=== PATIENT | male | born 1945 | race Caucasian/White ===

== ENCOUNTER → 2017-11-15 | Day surgery (SDC) | payer OTHER ==
[2017-11-08 15:18] VITALS: BMI 24.0
[~2017-11-15] VITALS: Ht 175.3 cm; Wt 76.4 kg
[~2017-11-15] MED LIST: ASPI325T39 PO; DOCU250C11 PO; EZET10TA63 PO; FENO134C PO; GABA-113 PO; GLC/500 PO; LEVE750T PO; LIDOCAINE HCL 2% 2 ML VIAL (20MG/ML) ONE; LISI-461 PO; PROPOFOL IV EMULSION 10 MG/ML 20 ML VIAL ONE; SODIUM CHLORIDE 0.9% 500ML 500 ML IV ONE
[2017-11-15 09:17] VITALS: Ht 175.3 cm; Wt 76.4 kg
--- NOTE | 2017-11-15 09:18 | Endo History and Physical ---
History & Physical Date of Service: Nov 15, 2017. Chief Complaint: Referring Physician: History of Present Illness Colonoscopy for positive cologaurd Past Medical History Diabetes, Seizure Disorder, Hypertension, CVA/TIA Past Surgical History Hx Cardiac Surgery: No Hx Internal Defibrillator: No Hx Pacemaker: No Hx Abdominal Surgery: Yes (APPY; UMBILICAL HERNIA) Hx of Implantable Prosthesis: No Hx Post-Op Nausea and Vomiting: No Hx Cancer Surgery: No Hx Thoracic Surgery: No Hx Orthopedic: No Hx Urinary Tract Surgery: No Family History Colon CA Social History Smoking Status: Former Smoker Hx Substance Use: No Hx Alcohol Use: No Allergies Coded Allergies: Lactose Intolerance (GI) (Verified Allergy, Unknown, GI SYMPTOMS, 11/08/17) Pt reported lactose intolerance (not milk allergy) to dietitian. NO KNOWN DRUG ALLERGIES (Verified Allergy, Unknown, ., 11/08/17) Milk (Verified Adverse Reaction, Unknown, FLATULENCE,ABD DISCOMFORT, ) Current Medications Reported Home Medications Medications Dose Route/Sig Max Daily Dose Days Date Category Tricor (Fenofibrate Micronized) 134 Mg Cap 134 Mg PO QAM 11/08/17 Reported Zetia (Ezetimibe) 10 Mg Tab 10 Mg PO QPM 09/24/15 Reported Keppra (Levetiracetam) 750 Mg Tab 1,500 Mg PO BID 09/24/15 Reported Docusate Sodium 250 Mg Cap 250 Mg PO BID 09/04/14 Reported Glucophage (Metformin Hcl) 500 Mg Tab 500 Mg PO BID 09/04/14 Reported Neurontin (Gabapentin) 300 Mg Cap 300 Mg PO BID 09/04/14 Reported Zestril (Lisinopril) 10 Mg Tab 10 Mg PO QPM 02/24/14 Reported Aspirin Ec (Aspirin) 325 Mg Tab 325 Mg PO QAM 02/24/14 Reported Vital Signs Weight (Kilograms): 76.36 Height (Feet): 5 Height (Inches): 9 Physical Exam General Appearance: no apparent distress Respiratory/Chest: Auscultation: breath sounds normal Cardiovascular: Heart Auscultation: RRR Abdomen: Inspection & Palpation: soft, non-distended Assessment and Plan Stable for colonoscopy
--- NOTE | 2017-11-15 10:13 | GI REPORT ---
Patient Name: Silver Terry Procedure Date: 11/15/2017 9:18 AM Date of : 1945 Admit Type: Outpatient Age: 72 Gender: Male Attending MD: Haseeb Spain MD Procedure: Colonoscopy Providers: Haseeb Spain MD Referring MD: Raul Benitez Indications: Positive Cologuard test Medicines: Monitored Anesthesia Care Complications: No immediate complications. Estimated Blood Loss: Estimated blood loss: none. Procedure: Pre-Anesthesia Assessment: - Prior to the procedure, a History and Physical was performed, and patient medications and allergies were reviewed. The patient is competent. The risks and benefits of the procedure and the sedation options and risks were discussed with the patient. All questions were answered and informed consent was obtained. Patient identification and proposed procedure were verified by the physician and the nurse in the procedure room. Mental Status Examination: alert and oriented. Airway Examination: normal oropharyngeal airway and neck mobility. Respiratory Examination: clear to auscultation. CV Examination: normal. ASA Grade Assessment: III - A patient with severe systemic disease. After reviewing the risks and benefits, the patient was deemed in satisfactory condition to undergo the procedure. The anesthesia plan was to use monitored anesthesia care (MAC). Immediately prior to administration of medications, the patient was re-assessed for adequacy to receive sedatives. The heart rate, respiratory rate, oxygen saturations, blood pressure, adequacy of pulmonary ventilation, and response to care were monitored throughout the procedure. The physical status of the patient was re-assessed after the procedure. After I obtained informed consent, the scope was passed under direct vision. Throughout the procedure, the patient's blood pressure, pulse, and oxygen saturations were monitored continuously.The colonoscopy was performed without difficulty. The patient tolerated the procedure well. The scope was introduced through the anus and advanced to the terminal ileum. The quality of the bowel preparation was good. The terminal ileum, ileocecal valve, appendiceal orifice, and rectum were photographed. Findings: The perianal and digital rectal examinations were normal. The terminal ileum appeared normal. A 8 mm polyp was found in the ascending colon. The polyp was sessile. The polyp was removed with a cold snare. Resection and retrieval were complete. Verification of patient identification for the specimen was done by the physician and nurse using the patient's name and date. A 4 mm polyp was found in the rectum. The polyp was sessile. The polyp was removed with a cold snare. Resection and retrieval were complete. Multiple small and large-mouthed diverticula were found in the sigmoid colon. Non-bleeding internal hemorrhoids were found during retroflexion. The hemorrhoids were small. Impression: - The examined portion of the ileum was normal. - One 8 mm polyp in the ascending colon, removed with a cold snare. Resected and retrieved. - One 4 mm polyp in the rectum, removed with a cold snare. Resected and retrieved. - Diverticulosis in the sigmoid colon. - Non-bleeding internal hemorrhoids. Recommendation: - Discharge patient to home. - Await pathology results. - Repeat colonoscopy in 5 years for surveillance. - Return to referring physician. Haseeb Spain MD 11/15/2017 10:12:50 AM This report has been signed electronically. Note Initiated On: 11/15/2017 9:18 AM Number of Addenda: 0 I attest to the content of the Intraoperative Record and orders documented therein, exceptions below {[id number]}
--- NOTE | 2017-11-15 10:22 | Discharge Instructions ---
Endoscopy Patient Instructions Date / Procedure(s) Performed Nov 15, 2017. Colonoscopy Allergy Information Coded Allergies: Lactose Intolerance (GI) (Verified Allergy, Unknown, GI SYMPTOMS, 11/08/17) Pt reported lactose intolerance (not milk allergy) to dietitian. NO KNOWN DRUG ALLERGIES (Verified Allergy, Unknown, ., 11/08/17) Milk (Verified Adverse Reaction, Unknown, FLATULENCE,ABD DISCOMFORT, ) Discharge Date / Findings Nov 15, 2017. Small colon polyps, resected. Provider Instructions Activity Restrictions - No exercising or heavy lifting for 24 hours. - Do not drink alcohol the day of the procedure. - Do not drive a car or operate machinery until the day after the procedure. - Do not make any important decisions or sign important papers in 24 hours after the procedure. Following Day: - Return to full activity which may include returning to work/school. Diet Start your diet with liquids and light foods (jello, soup, juice, toast). Then eat your usual diet if not nauseated. Treatment For Common After Affects For mild abdominal pain, bloating, or excessive gas: - Rest - Eat lightly - Lie on right side Follow-Up Information Follow-up with DR. OSBORNE as scheduled Anesthesia Information What You Should Know You have had a procedure that required some medicine to reduce anxiety and discomfort. This treatment is called moderate sedation. After receiving the treatment, you may be sleepy, but you will be able to breathe on your own. The effects of the treatment may last for several hours. Follow these instructions along with Activity/Diet recommendations noted above: * Do NOT do anything where dizziness or clumsiness would be dangerous. * Rest quietly at home today, then you can be up and about tomorrow. * Have a responsible person stay with you the rest of today. * You may have had an I.V. today. If so, you may take the dressing off later today. Recommendations Call your doctor if: * Trouble breathing * Continuous vomiting for more than 24 hours * Temperature above 101 degrees * Severe abdominal pain or bloating * Pain not relieved by pain medicine ordered * There is increased drainage or redness from any incision * A large amount of rectal bleeding greater than 2-3 tablespoons. (If you had a polyp/s removed or have hemorrhoids, a small amount of blood - from the rectum is to be expected.) * You have any unanswered questions or concerns. IN THE EVENT OF A SERIOUS EMERGENCY, GO TO THE NEAREST EMERGENCY ROOM Your discharge instructions were prepared by provider Haseeb Spain. Patient Instructions Signature Page Silver Terry Patient (or Guardian) Signature/Date: I have read and understand the instructions given to me by my caregivers. Caregiver/RN/Doctor Signature/Date: The above-named patient and/or guardian has received patient instructions on this date. + Original Patient Signature Page (only) stays with chart. Please make copy for patient.
--- NOTE | 2017-11-15 10:37 | Anesthesiology Progress Note ---
Anesthesia Post Op Note Date & Time Nov 15, 2017 at 10:37 Vital Signs Pain Intensity: 0 Vital Signs Past 12 Hours Date Time Temp Pulse Resp B/P (MAP) Pulse Ox O2 Delivery O2 Flow Rate FiO2 11/15/17 10:30 78 16 147/67 (93) 94 Room Air 11/15/17 10:25 81 16 130/61 (84) 95 Room Air 11/15/17 10:15 67 16 97/44 (61) 97 Room Air 11/15/17 09:29 37.2 67 18 149/91 (110) 97 Room Air Notes Mental Status: alert / awake / arousable, participated in evaluation Pt Amnestic to Procedure: Yes Nausea / Vomiting: adequately controlled Pain: adequately controlled Airway Patency, RR, SpO2: stable & adequate BP & HR: stable & adequate Hydration State: stable & adequate Anesthetic Complications: no major complications apparent
[2017-11-15 10:45] VITALS: BP 136/74; PULSE 78; O2SAT 96
== END | disposition home or self-care (01) ==
LOC: C.GI 08:57
PROVIDERS: ATTEND Student in an Organized Health Care Education/Training Program
DX: R19.5 Other fecal abnormalities (principal); D12.2 Benign neoplasm of ascending colon; D12.8 Benign neoplasm of rectum; K64.8 Other hemorrhoids; G47.33 Obstructive sleep apnea (adult) (pediatric); E11.9 Type 2 diabetes mellitus without complications; I10 Essential (primary) hypertension; Z86.73 Personal history of transient ischemic attack (TIA), and cerebral infarction without residual deficits; G40.909 Epilepsy, unspecified, not intractable, without status epilepticus; Z90.49 Acquired absence of other specified parts of digestive tract; Z91.011 Allergy to milk products; Z87.891 Personal history of nicotine dependence; Z79.82 Long term (current) use of aspirin

== ENCOUNTER 2018-08-19 10:07 | Inpatient (IN) ==
[2018-08-19 11:30] LABS: Hematocrit (blood only) 44.6 % (42-52); Hemoglobin 16.2 g/dL (14.0-18.0); Mean Corpuscular Hgb Conc 36.3 g/dL (32-36); Mean Corpuscular Volume 90.5 fL (80-100); Mean Platelet Volume 10.5 fL (7.4-10.4); Platelet Count 326 K/uL (130-400); RDW Coefficient of Variation 13.4 % (11.5-14.5); RDW Standard Deviation 44.2 fL (36.4-46.3); Red Blood Count 4.93 M/uL (4.7-6.1); White Blood Count 25.35 K/uL (4.8-10.8)
[2018-08-19 11:31] LABS: Appearance Urine Cloudy (Clear); Bacteria Urine Automated Negative (Negative); Blood Urine 1+ (Negative); Color Urine Orange; Epithelial Cell Urine Auto >30 /lpf (0-5); Glucose Urine UA Negative (Negative); Ketones Urine Negative (Negative); Leukocyte Esterase Urine Trace (Negative); Nitrite Urine Positive (Negative); Protein Urine 2+ (Negative); Specific Gravity Urine 1.028 (1.000-1.030); Urobilinogen Urine Negative (Negative)
[2018-08-19] MEDS ORDERED: ACETAMINOPHEN 1,000 MG/100 ML VIAL IV STA (11:32)
[2018-08-19] MEDS ORDERED: ONDANSETRON INJ 2 MG/ML 2 ML VIAL IV STA (11:32)
[2018-08-19 11:33] LABS: Bilirubin Urine Negative (Negative); Ictotest Urine Negative (Negative)
[2018-08-19] MEDS ORDERED: SODIUM CHLORIDE 0.9% 500 ML IV SCH (11:45)
[2018-08-19 11:46] LABS: RBC Urine Automated 0-4 /hpf (0-4)
[2018-08-19 11:47] LABS: Renal Epithelial Cells Urine 0-5 /lpf (0-5)
[2018-08-19] MEDS ORDERED: ONDANSETRON INJ 2 MG/ML 2 ML VIAL ONE (11:48)
[2018-08-19] MEDS ORDERED: ACETAMINOPHEN 1000 MG/100 ML IV IV ONE (11:48)
[2018-08-19 11:49] LABS: Alanine Aminotransferase 64 U/L (12-78); Albumin Level 3.1 gm/dl (3.4-5.0); Aspartate Aminotransferase 23 U/L (15-37); BUN Creatinine Ratio 22.8 (10-20); Blood Urea Nitrogen 31 mg/dl (7-18); Calcium 9.6 mg/dl (8.5-10.1); Carbon Dioxide 30 mmol/L (21-32); Chloride 102 mmol/L (98-107); Est GFR (African American) 60.4; Est GFR (Non-African American) 52.1; Glucose 199 mg/dl (70-99); Potassium 2.9 mmol/L (3.5-5.1); Sodium 141 mmol/L (136-145)
[2018-08-19 11:52] LABS: Albumin Globulin Ratio 0.7 (0.9-2); Alkaline Phosphatase 87 U/L (45-117); Globulin 4.7 gm/dl (2.5-4.0); Total Protein 7.8 gm/dl (6.4-8.2)
[2018-08-19 12:00] LABS: Basophils # (auto) 0.02 K/uL (0-0.2); Basophils % (auto) 0.1 %; Eosinophils # (auto) 0.01 K/uL (0-0.5); Immature Granulocytes # (auto) 0.13 K/uL (0.00-0.02); Immature Granulocytes % (auto) 0.5 %; Lymphocytes # (auto) 1.58 K/uL (1.2-3.4); Lymphocytes % (auto) 6.2 %; Monocytes # (auto) 1.82 K/uL (0.11-0.59); Monocytes % (auto) 7.2 %; Neutrophils # (auto) 21.79 K/uL (1.4-6.5)
--- NOTE | 2018-08-19 12:08 | XRay Report ---
XR chest 1V portable CLINICAL HISTORY: right lower chest pain COMPARISON STUDY: 12/17/2017 FINDINGS: The heart is mildly enlarged. There is no lobar consolidation. There is no failure. There a re no significant pleural effusions. There are basilar opacities statistically atelectatic.[ IMPRESSION: 1. Basilar opacities, likely atelectatic. No evidence of lobar consolidation Electronically signed by: Virgil Rahman M.D. 08/19/2018 12:07 PM
[2018-08-19] MEDS ORDERED: IOVERSOL 100ml IV PRN (12:13)
[2018-08-19 12:19] LABS: Troponin I < 0.015 ng/ml (0-0.045)
--- NOTE | 2018-08-19 12:33 | CT Scan Report ---
CT abd pelvis IV con only CLINICAL HISTORY: ruq abd pain COMPARISON STUDY: 12/17/2017 TECHNIQUE: The patient was scanned in a dynamic helical fashion during intravenous administration of 93 cc Optiray 320 A dose lowering technique was utilized adhering to the principles of ALARA. CT DOSE: 468.27 mGy.cm FINDINGS: Lower chest: There are basilar opacities right greater than left, likely atelectatic. Liver: There is hepatic steatosis. The portal vein and hepatic veins appear patent. Gallbladder: The gallbladder is distended. There are droplets of gas within the gallbladder lumen. Th ere is pericholecystic stranding. There is mild adjacent hepatic hyperemia. The findings are concerni ng for acute cholecystitis and clinical correlation this regard is advocated. If desired a nuclear me dicine thyroid ablation study could be obtained in follow-up to assess cystic duct patency Spleen: Normal in size and attenuation. Pancreas: Unremarkable. Adrenal glands: Unremarkable. Kidneys: There is symmetric renal cortical enhancement. The kidneys are normal in size without hydron ephrosis. Bowel: There are no transition zones indicate bowel obstruction. There is colonic diverticulosis. The re are no acute peridiverticular inflammatory changes. There are no findings to indicate acute append icitis. Peritoneum: There is no intraperitoneal free air or abdominal ascites. Vasculature: Moderate atheromatous changes are present within the aorta. There is ectasia of the infr arenal abdominal aorta which measures 25 mm. Adenopathy: None. Pelvic viscera: There is mild prostamegaly Skeletal structures: No destructive osseous lesions are seen. IMPRESSION: 1. Distended gallbladder with pericholecystic inflammatory change,, adjacent hepatic hyperemia, and t iny gas bubbles within the gallbladder lumen. The findings are concerning for acute cholecystitis and clinical correlation in this regard is advocated. If desired a nuclear medicine hepatobiliary study could be obtained in follow-up to assess cystic duct patency. 2. Hepatic steatosis 3. Basilar atelectatic changes Electronically signed by: Virgil Rahman M.D. 08/19/2018 12:32 PM
[2018-08-19] MEDS ORDERED: PIPERACILLIN/TAZOBACTAM 4.5 GM/120 ML BAG IV ONE (12:38)
--- NOTE | 2018-08-19 15:19 | Emergency Department Note ---
Entered by Cassandra Rosado acting as a scribe for Caden Chavez MD History of Present Illness General Chief complaint: Abdominal Pain Stated complaint: GALLBLADDER PAIN Time Seen by Provider: 08/19/18 11:20 Source: patient and family History of Present Illness Provider complaint: right-sided abdominal pain Onset (ago): day(s) 3 Pain Consistency: + constant Maximum Pain Intensity: 8 Current Pain Intensity: 5 Quality: + other (pain) Exacerbated By: + movement (standing, walking) Associated symptoms: + nausea/vomiting and + other (diarrhea) The patient is a 73 year old male who presents to the Emergency Department with complaints of right-sided abdominal pain over the last 3 days. The patient rates his pain at a 5/10 but states that yesterday it was an 8/10. He states that his pain has been constant but sometimes worsens. He states that standing and wal roseline exacerbate his pain. He denies falling or any injuries. The patient states that he feels like he has a fever but states that his temperature is okay. The patient states that he vomited 3 nights ago. He states that he has had urinary frequency but no burning with urination. The patient states that he has had diarrhea. He reports a history of an appendectomy but denies a history of a cholecystectomy. He reports that he has had similar pain in the past and states that he had an ulcer at this time. Per family, the patient is on Aspirin and is no longer on Plavix. His family states that the patient is not on any anti-ulcer medications. Per family, the patient has had gallstones in the past. Home Medications Home Medications Medication Instructions Recorded Confirmed Type aspirin 325 mg PO QAM 12/17/17 08/19/18 History ezetimibe [Zetia] 10 mg PO QPM 12/17/17 08/19/18 History levetiracetam 1,500 mg PO BID 12/17/17 08/19/18 History metformin 500 mg PO BID 12/17/17 08/19/18 History davtkptb-fpi-depwn-vit K-lycop 1 tab PO DAILY 08/19/18 08/19/18 History [Men's 50 Plus Multivitamin] nystatin-triamcinolone 1 applic TOPICAL BID 08/19/18 08/19/18 History Allergies Allergy/AdvReac Type Severity Reaction Status Date / Time lactose Allergy Intermediate GI SYMPTOMS Verified 08/19/18 13:04 Past Med/Surg History Medical History PAD (peripheral artery disease) History of stroke 5 years ago, residual left sided weakness HTN (hypertension) Diabetes (Chronic) Hypokalemia Seizure last one two years ago Abdominal pain Acute CVA (cerebrovascular accident) Acute CVA (cerebrovascular accident) Facial contusion Fall Post-ictal state Seizure Seizures, generalized convulsive Status epilepticus Surgical History History of appendectomy (Resolved) Family History Other No significant family history Social History Preferred Language: Maltese Communication Ability: Effective Beliefs That Will Affect Care: None Current Living Situation: Spouse Feels Safe at Home: Yes Smoking Status: Former smoker Hx Alcohol Use: No Hx Substance Use: No Review of Systems See HPI for pertinent positives & negatives. and A total of 10 systems reviewed and were otherwise negative Physical Exam Vital Signs Vital Signs - 24 hr 08/19/18 10:13 08/19/18 11:01 08/19/18 11:16 Temperature 37.3 C Temperature Source Oral Sepsis Recent Fever Within 48 Hours No Sepsis New/Unexplained Change in Mental Status No Sepsis Action Taken by Nursing No Action Required Pulse Rate 45 L Pulse Rate [Finger] Pulse Rhythm Regular Pulse Strength Normal Respiratory Rate 20 Respiratory Effort / Characteristics Non-Labored Spontaneous Respiratory Depth Normal Respiratory Pattern Regular Blood Pressure 120/73 Blood Pressure [Right Arm] Blood Pressure Mean 88 Blood Pressure Mean [Right Arm] Blood Pressure Position Sitting Pulse Oximetry 92 95 94 Oxygen Delivery Method Room Air Nasal Cannula Nasal Cannula Oxygen Flow Rate 1 1 08/19/18 12:24 08/19/18 13:49 08/19/18 16:58 Temperature Temperature Source Sepsis Recent Fever Within 48 Hours Sepsis New/Unexplained Change in Mental Status Sepsis Action Taken by Nursing Pulse Rate Pulse Rate [Finger] 95 H 96 H Pulse Rhythm Pulse Strength Respiratory Rate 17 18 Respiratory Effort / Characteristics Respiratory Depth Respiratory Pattern Blood Pressure Blood Pressure [Right Arm] 129/71 122/78 Blood Pressure Mean Blood Pressure Mean [Right Arm] 90 92 Blood Pressure Position Pulse Oximetry 98 92 Oxygen Delivery Method Nasal Cannula Room Air Oxygen Flow Rate 1 08/19/18 17:20 Temperature Temperature Source Sepsis Recent Fever Within 48 Hours Sepsis New/Unexplained Change in Mental Status Sepsis Action Taken by Nursing Pulse Rate Pulse Rate [Finger] 84 Pulse Rhythm Pulse Strength Respiratory Rate 18 Respiratory Effort / Characteristics Respiratory Depth Respiratory Pattern Blood Pressure Blood Pressure [Right Arm] 126/69 Blood Pressure Mean Blood Pressure Mean [Right Arm] 88 Blood Pressure Position Pulse Oximetry 96 Oxygen Delivery Method Room Air Oxygen Flow Rate GENERAL: Patient is in no acute distress. HEENT: No acute trauma, normocephalic atraumatic, mucous membranes moist, no nasal congestion, no scleral icterus. NECK: No stridor, no adenopathy, no meningismus, trachea is midline. LUNGS: Clear to auscultation bilaterally, no wheeze, no rhonchi, breath sounds equal. HEART: Without murmurs gallops or rubs, regular rate and rhythm. ABDOMEN: Soft, moderately tender in the right upper quadrant, bowel sounds positive, no hernias, no peritonitis. EXTREMITIES: No cyanosis or edema, full range of motion of all the joints without pain or difficulty, no signs for acute trauma. NEUROLOGIC: Oriented x 3, no acute motor or sensory deficits, no focal weakness. SKIN: No rash, no jaundice, no diaphoresis. Course 1127: The patient was evaluated in room C5. A history and physical were performed. 1241: I discussed the patient's case with Brittany Mata PA-C General Surgery who will evaluate the patient with Dr. Osborn and decide if they want to admit the patient or have the patient admitted to Medicine. 1244: I updated the patient and his family. 1327: I spoke with Brittany Mata who consulted Vianca Hampton who will evaluate the patient for further management. Consultations Consultation #1: Brittany Mata PA-C General Surgery Time: 12:41 Administered Medications Ioversol (Optiray 320 100ml) 93 ml IV ONCE PRN PRN Reason: Interaction Checking Stop: 08/23/18 12:12 Last Admin: 08/19/18 12:13 Dose: 93 ml Documented by: [id number] Discontinued Medications Acetaminophen (Ofirmev) Confirm Administered Dose 1,000 mg IV .STK-MED ONE Stop: 08/19/18 11:49 Last Admin: 08/19/18 12:17 Dose: Not Given Documented by: [id number] Acetaminophen (Ofirmev) 1,000 mg in 100 mls @ 400 mls/hr IV NOW STA Stop: 08/19/18 11:46 Last Infusion: 08/19/18 12:04 Dose: 0 mls/hr Documented by: [id number] Admin: 08/19/18 11:49 Dose: 400 mls/hr Documented by: [id number] Sodium Chloride (Nss) 500 mls @ 999 mls/hr IV .Q31M ABHIJIT Stop: 08/19/18 12:15 Last Infusion: 08/19/18 12:17 Dose: 0 mls/hr Documented by: [id number] Admin: 08/19/18 11:45 Dose: 999 mls/hr Documented by: [id number] Piperacillin Sod/Tazobactam Sod (Zosyn) 4.5 gm in 120 mls @ 240 mls/hr IV NOW ONE Stop: 08/19/18 13:07 Last Infusion: 08/19/18 14:27 Dose: 0 mls/hr Documented by: [id number] Admin: 08/19/18 13:54 Dose: 240 mls/hr Documented by: [id number] Ondansetron HCl (Zofran) 4 mg IV NOW STA Stop: 08/19/18 11:33 Last Admin: 08/19/18 11:49 Dose: 4 mg Documented by: [id number] Ondansetron HCl (Zofran) Confirm Administered Dose 4 mg .ROUTE .STK-MED ONE Stop: 08/19/18 11:49 Last Admin: 08/19/18 12:17 Dose: Not Given Documented by: [id number] Medical Decision Making Differential Diagnosis Differentials include acute cholecystitis, biliary colic, pancreatitis, pneumonia, UTI, renal failure, diverticulitis, ulcer, and dehydration. Medical Records Attestation: I reviewed the patient's medical records. Home Medications Current Medication List: was personally reviewed by me Laboratory Data Attestation: I reviewed the patient's lab results. Result diagrams: 08/19/18 11:18 08/19/18 11:18 Lab Results 08/19/18 08/19/18 08/19/18 Range/Units 11:18 11:18 11:18 WBC 25.35 H (4.8-10.8) K/uL RBC 4.93 (4.7-6.1) M/uL Hgb 16.2 (14.0-18.0) g/dL Hct 44.6 (42-52) % MCV 90.5 (80-100) fL MCH 32.9 (25-34) pg MCHC 36.3 H (32-36) g/dL RDW Std Deviation 44.2 (36.4-46.3) fL RDW Coeff of Araceli 13.4 (11.5-14.5) % Plt Count 326 (130-400) K/uL MPV 10.5 H (7.4-10.4) fL Immature Gran % (Auto) 0.5 % Neut % (Auto) 86.0 % Lymph % (Auto) 6.2 % Imperial % (Auto) 7.2 % Eos % (Auto) 0.0 % Baso % (Auto) 0.1 % Immature Gran # (Auto) 0.13 H (0.00-0.02) K/uL Neut # (Auto) 21.79 H (1.4-6.5) K/uL Lymph # (Auto) 1.58 (1.2-3.4) K/uL Imperial # (Auto) 1.82 H (0.11-0.59) K/uL Eos # (Auto) 0.01 (0-0.5) K/uL Baso # (Auto) 0.02 (0-0.2) K/uL Sodium 141 (136-145) mmol/L Potassium 2.9 L (3.5-5.1) mmol/L Chloride 102 (98-107) mmol/L Carbon Dioxide 30 (21-32) mmol/L Anion Gap 9.0 (3-11) BUN 31 H (7-18) mg/dl Creatinine 1.35 (0.6-1.4) mg/dl Est Cr Clr Drug Dosing Not Reportable Est GFR ( Amer) 60.4 Est GFR (Non-Af Amer) 52.1 BUN/Creatinine Ratio 22.8 H (10-20) Glucose 199 H (70-99) mg/dl Calcium 9.6 (8.5-10.1) mg/dl Total Bilirubin 1.0 (0.2-1) mg/dl AST 23 (15-37) U/L ALT 64 (12-78) U/L Alkaline Phosphatase 87 (45-117) U/L Troponin I < 0.015 (0-0.045) ng/ml Total Protein 7.8 (6.4-8.2) gm/dl Albumin 3.1 L (3.4-5.0) gm/dl Globulin 4.7 H (2.5-4.0) gm/dl Albumin/Globulin Ratio 0.7 L (0.9-2) Lipase 36 L (73-393) U/L Urine Color [place] Urine Appearance Cloudy A (Clear) Urine pH 5.0 (4.5-7.5) Ur Specific Echo 1.028 (1.000-1.030) Urine Protein 2+ H (Negative) Urine Glucose (UA) Negative (Negative) Urine Ketones Negative (Negative) Urine Blood 1+ H (Negative) Urine Nitrite Positive A (Negative) Urine Bilirubin Negative (Negative) Urine Urobilinogen Negative (Negative) Ur Leukocyte Esterase Trace H (Negative) Urine WBC (Auto) 1-5 (0-5) /hpf Urine RBC (Auto) 0-4 (0-4) /hpf U Hyaline Cast (Auto) Not Reportable U Epithel Cells (Auto) >30 H (0-5) /lpf Urine Bacteria (Auto) Negative (Negative) Ur Renal Epithelial Cell 0-5 (0-5) /lpf Granular Casts 1-5 H (0) /lpf Urine Yeast Not Reportable 08/19/18 Range/Units 11:18 WBC (4.8-10.8) K/uL RBC (4.7-6.1) M/uL Hgb (14.0-18.0) g/dL Hct (42-52) % MCV (80-100) fL MCH (25-34) pg MCHC (32-36) g/dL RDW Std Deviation (36.4-46.3) fL RDW Coeff of Araceli (11.5-14.5) % Plt Count (130-400) K/uL MPV (7.4-10.4) fL Immature Gran % (Auto) % Neut % (Auto) % Lymph % (Auto) % Imperial % (Auto) % Eos % (Auto) % Baso % (Auto) % Immature Gran # (Auto) (0.00-0.02) K/uL Neut # (Auto) (1.4-6.5) K/uL Lymph # (Auto) (1.2-3.4) K/uL [place] # (Auto) (0.11-0.59) K/uL Eos # (Auto) (0-0.5) K/uL Baso # (Auto) (0-0.2) K/uL Sodium (136-145) mmol/L Potassium (3.5-5.1) mmol/L Chloride (98-107) mmol/L Carbon Dioxide (21-32) mmol/L Anion Gap (3-11) BUN (7-18) mg/dl Creatinine (0.6-1.4) mg/dl Est Cr Clr Drug Dosing Est GFR ( Amer) Est GFR (Non-Af Amer) BUN/Creatinine Ratio (10-20) Glucose (70-99) mg/dl Calcium (8.5-10.1) mg/dl Total Bilirubin (0.2-1) mg/dl AST (15-37) U/L ALT (12-78) U/L Alkaline Phosphatase (45-117) U/L Troponin I Cancelled (0-0.045) ng/ml Total Protein (6.4-8.2) gm/dl Albumin (3.4-5.0) gm/dl Globulin (2.5-4.0) gm/dl Albumin/Globulin Ratio (0.9-2) Lipase (73-393) U/L Urine Color Urine Appearance (Clear) Urine pH (4.5-7.5) Ur Specific Echo (1.000-1.030) Urine Protein (Negative) Urine Glucose (UA) (Negative) Urine Ketones (Negative) Urine Blood (Negative) Urine Nitrite (Negative) Urine Bilirubin (Negative) Urine Urobilinogen (Negative) Ur Leukocyte Esterase (Negative) Urine WBC (Auto) (0-5) /hpf Urine RBC (Auto) (0-4) /hpf U Hyaline Cast (Auto) U Epithel Cells (Auto) (0-5) /lpf Urine Bacteria (Auto) (Negative) Ur Renal Epithelial Cell (0-5) /lpf Granular Casts (0) /lpf Urine Yeast Imaging Data Radiologist's Impression: Radiology results as stated below per my review and the radiologist's interpretation: XR chest 1V portable CLINICAL HISTORY: right lower chest pain COMPARISON STUDY: 12/17/2017 FINDINGS: The heart is mildly enlarged. There is no lobar consolidation. There is no failure. There are no significant pleural effusions. There are basilar opacities statistically atelectatic.[ IMPRESSION: 1. Basilar opacities, likely atelectatic. No evidence of lobar consolidation Electronically signed by: Virgil Rahman M.D. 08/19/2018 12:[address] abd pelvis IV con only CLINICAL HISTORY: ruq abd pain COMPARISON STUDY: 12/17/2017 TECHNIQUE: The patient was scanned in a dynamic helical fashion during intravenous administration of 93 cc Optiray 320 A dose lowering technique was utilized adhering to the principles of ALARA. CT DOSE: 468.27 mGy.cm FINDINGS: Lower chest: There are basilar opacities right greater than left, likely atelectatic. Liver: There is hepatic steatosis. The portal vein and hepatic veins appear patent. Gallbladder: The gallbladder is distended. There are droplets of gas within the gallbladder lumen. There is pericholecystic stranding. There is mild adjacent hepatic hyperemia. The findings are concerning for acute cholecystitis and clinical correlation this regard is advocated. If desired a nuclear medicine thyroid ablation study could be obtained in follow-up to assess cystic duct patency Spleen: Normal in size and attenuation. Pancreas: Unremarkable. Adrenal glands: Unremarkable. Kidneys: There is symmetric renal cortical enhancement. The kidneys are normal in size without hydronephrosis. Bowel: There are no transition zones indicate bowel obstruction. There is colonic diverticulosis. There are no acute peridiverticular inflammatory changes. There are no findings to indicate acute appendicitis. Peritoneum: There is no intraperitoneal free air or abdominal ascites. Vasculature: Moderate atheromatous changes are present within the aorta. There is ectasia of the infrarenal abdominal aorta which measures 25 mm. Adenopathy: None. Pelvic viscera: There is mild prostamegaly Skeletal structures: No destructive osseous lesions are seen. IMPRESSION: 1. Distended gallbladder with pericholecystic inflammatory change,, adjacent hepatic hyperemia, and tiny gas bubbles within the gallbladder lumen. The findings are concerning for acute cholecystitis and clinical correlation in this regard is advocated. If desired a nuclear medicine hepatobiliary study could be obtained in follow-up to assess cystic duct patency. 2. Hepatic steatosis 3. Basilar atelectatic changes Electronically signed by: Virgil Rahman M.D. 08/19/2018 12:32 PM ECG Data Attestation: I personally reviewed and interpreted this ECG as follows: Indication: abdominal pain Rate (beats per minute): 103 Rhythm: sinus tachycardia Findings: no PVC and no ST elevation Blood Pressure Blood Pressure Findings: Normal blood pressure MDM Narrative There is a significant leukocytosis at 25,000, this is consistent with infection. No anemia. Renal panel testing shows a somewhat low potassium at 2.9. No kidney failure. No elevation to the liver enzymes, no evidence for pancreatitis. EKG shows a sinus rhythm, no acute ischemia. Cardiac enzyme testing x1 is not consistent with acute cardiac injury. Urinalysis shows contamination, no obvious infection. Chest film does not show pneumonia or free air. Abdominal and pelvis CT shows evidence for acute cholecystitis. The patient received IV saline. He was given IV Zosyn as antibiotic coverage. He received IV Zofran for nausea, IV Tylenol for pain control. The patient has acute cholecystitis. This of course explains his presentation. I talked with general surgery who saw the patient here in the ED. The patient will be brought into the hospital for an eventual cholecystectomy. Case management has been involved. The patient is aware of all his findings. Impression & Plan Acute cholecystitis, Leukocytosis, Vomiting Discharge Plan Visit Data Chief Complaint: Abdominal Pain Stated Complaint: GALLBLADDER PAIN ED Provider: Caden Chavez Discharge Problem: Acute cholecystitis, Leukocytosis, Vomiting Patient Disposition: Being Evaluated by Hospitalist Discharge Instructions Interventions: ED Discharge Assessment Last Done: 08/19/18 18:00 Forms Stand Alone Forms: Call Back Authorization, [facility] Prescriptions Prescriptions: No Action metformin 500 mg Tablet 500 mg PO BID RF: 0 aspirin 325 mg Tablet,Delayed Release (Dr/Ec) 325 mg PO QAM RF: 0 levetiracetam 750 mg Tablet 1,500 mg PO BID RF: 0 ezetimibe [Zetia] 10 mg Tablet 10 mg PO QPM RF: 0 nystatin-triamcinolone 100,000-0.1 unit/g-% cream 1 applic topical BID RF: 0 Men's 50 Plus Multivitamin 400-20-370 mcg Tablet 1 tab PO DAILY RF: 0 Referrals Referrals: Raul Benitez MD [Primary Care Provider] - Discharge Problem: Leukocytosis Qualifiers: Leukocytosis type: unspecified Qualified Code(s): D72.829 - Elevated white blood cell count, unspecified Vomiting Qualifiers: Vomiting type: unspecified Vomiting Intractability: unspecified Nausea presence: with nausea Qualified Code(s): R11.2 - Nausea with vomiting, unspecified The scribe's documentation has been prepared under my direction and personally reviewed by me in its entirety. I confirm that the note above accurately reflects all work, treatment, procedures, and medical decision making performed by me.
--- NOTE | 2018-08-19 16:32 | Anesthesiology Consultation ---
Date of Service August 19, 2018 The patient has a history of DM, stroke 5 years ago, and seizure 2 years ago. His labs show hypokalemia and hyperglycemia. EKG was sinus tachycardia with some NSST changes. I spoke to Dr. Frey from medicine. She has ordered an echocardiogram and is treating the patient's blood sugar and potassium. Assessment & Plan (1) Encounter for pre-operative examination: Chart Review Chart Review: Pending: Refer to Additional Notes / Consult section and Patient NOT seen in Pre Admission Testing Consults Requested Medicine is following the patient. Echocardiogram is pending. Hyperglycemia and hypokalemia are being managed. History Surgery Operation Date: 08/20/18 07:15 Proposed Procedures p Laparoscopic Cholecystectomy No Cholangiogram - Jayro Osborn MD Height/Weight Weight: 78.925 kg Allergies Allergy/AdvReac Type Severity Reaction Status Date / Time lactose Allergy Intermediate GI SYMPTOMS Verified 08/19/18 13:04 Medications Home Medications Medication Instructions Recorded Confirmed Last Taken aspirin 325 mg PO QAM 12/17/17 08/19/18 12/17/17 ezetimibe [Zetia] 10 mg PO QPM 12/17/17 08/19/18 12/16/17 levetiracetam 1,500 mg PO BID 12/17/17 08/19/18 12/17/17 08:00 metformin 500 mg PO BID 12/17/17 08/19/18 12/17/17 08:00 qlqyxdrp-cbc-uzcmu-vit K-lycop 1 tab PO DAILY 08/19/18 08/19/18 Unknown [Men's 50 Plus Multivitamin] nystatin-triamcinolone 1 applic TOPICAL BID 08/19/18 08/19/18 Unknown Active Medications Generic Name Dose Route Start Last Admin Trade Name Freq PRN Reason Stop Dose Admin Ioversol 93 ml 08/19/18 12:13 08/19/18 12:13 Optiray 320 100ml IV 08/23/18 12:12 93 ml ONCE PRN Administration Interaction Checking Past Medical History Medical History PAD (peripheral artery disease) History of stroke 5 years ago, residual left sided weakness HTN (hypertension) Diabetes (Chronic) Hypokalemia Seizure last one two years ago Abdominal pain Acute CVA (cerebrovascular accident) Acute CVA (cerebrovascular accident) Facial contusion Fall Post-ictal state Seizure Seizures, generalized convulsive Status epilepticus Past Family History Family History Other No significant family history Past Surgical History Surgical History History of appendectomy (Resolved) Social History Smoking Status: Former smoker Hx Alcohol Use: No Hx Substance Use: No Physical Exam Vital Signs Last Vital Signs Temp 37.3 C 08/19/18 10:13 Pulse 84 08/19/18 17:20 Resp 18 08/19/18 17:20 BP 126/69 08/19/18 17:20 Pulse Ox 96 08/19/18 17:20 Testing Electrocardiogram Date: 08/19/18 Findings: + NSST changes and + ST @ (103) L atrial enlargement Chest X-Ray Date: 08/19/18 XR chest 1V portable CLINICAL HISTORY: right lower chest pain COMPARISON STUDY: 12/17/2017 FINDINGS: The heart is mildly enlarged. There is no lobar consolidation. There is no failure. There are no significant pleural effusions. There are basilar opacities statistically atelectatic.[ IMPRESSION: 1. Basilar opacities, likely atelectatic. No evidence of lobar consolidation Electronically signed by: Virgil Rahman M.D. 08/19/2018 12:07 PM Dictated: 08/19/18 1206 Transcribed: 08/19/18 1206 Echocardiogram Date: 12/18/17 EF: 60-65 Other Findings: + LVH (mild) and + diastolic dysfunction (Grade 1) Other Testing Laboratory Tests 12/17/17 08/19/18 08/19/18 19:40 11:18 11:18 WBC 25.35 H Hgb 16.2 Hct 44.6 Plt Count 326 PT 10.0 INR 1.0 APTT 24.3 Sodium 141 Potassium 2.9 L Chloride 102 Carbon Dioxide 30 BUN 31 H Creatinine 1.35 Glucose 199 H
[2018-08-19] MEDS ORDERED: PIPERACILL/TAZOBAC CONSULT ACTIVE PRN (18:19)
--- NOTE | 2018-08-19 18:28 | History & Physical Report ---
Date of Service August 19, 2018 Assessment & Plan (1) Acute cholecystitis: Presented with abdominal pain nausea vomiting for approximately [address] abdomen pelvis shows: IMPRESSION: 1. Distended gallbladder with pericholecystic inflammatory change,, adjacent hepatic hyperemia, and tiny gas bubbles within the gallbladder lumen. The findings are concerning for acute cholecystitis and clinical correlation in this regard is advocated. If desired a nuclear medicine hepatobiliary study could be obtained in follow-up to assess cystic duct patency. 2. Hepatic steatosis 3. Basilar atelectatic changes Order for bowel rest, n.p.o., empiric antibiotic with IV Zosyn (marked leukocytosis noted of 23K order for blood culture) Surgery evaluation requested, Patient will need cholecystectomy Procedures scheduled for tomorrow (2) Encounter for pre-operative examination: Patient has no prior history of coronary artery disease, No angina, no dyspnea on exertion or shortness of breath Echocardiogram done in 2018, showed normal EF with grade 1 diastolic dysfunction Patient does not appear to be volume overloaded, no evidence of pleural effusion, no evidence of cardiac decompensation Moderate to high risk less than 5% for mary kay-and post operative cardiac risk: Cardiac arrhythmia/CHF No cardiac imaging or testing/procedure will reduce and risk Resting echocardiogram ordered Surgery should not be postponed at for the echo report, as no active cardiac decompensation noted Patient should proceed for laparoscopic cholecystectomy tomorrow a.m. (3) Hypokalemia: Secondary to poor p.o. intake, nausea vomiting Potassium added with IV maintenance fluid, Order for IV potassium rider Repeat BMP at midnight, and in morning preop Check mag level (4) Leukocytosis: Secondary to acute cholecystitis, Patient is afebrile, remained stable hemodynamically Lactic acid within normal limit Empiric antibiotic with IV Zosyn, order for blood culture, IV fluid resuscitat ion Surgery consulted, needs a lap scopic cholecystectomy as soon as possible Repeat CBC in a.m. (5) Vomiting: ] Cholecystitis, no further episodes since admission, ordered PRN Zofran CT abdomen pelvis shows no evidence of obstruction (6) History of stroke: Takes aspirin 325 mg daily, which is kept on hold for cholecystectomy (7) Diabetes: Type 2 diabetes, on oral meds, metformin kept on hold Insulin sliding scale ordered, check hemoglobin A1c (8) Seizure disorder as sequela of cerebrovascular accident: Last seizure episode approximately 3 years back/2016 On Keppra Changed to IV, renally dosed CODE STATUS discussed with patient and family, willing for short term intubation/mechanical ventilation for surgery DVT prophylaxis: SCD and teds due to impending surgery Disposition: Expected to be discharged home medically stable, PT OT evaluation will be ordered after surgery Update given to patient's daughter and present at bedside History of Present Illness Chief Complaint: Abdominal pain, nausea vomiting Primary Care Provider: Raul Benitez MD This is a 73-year-old male with CVA, seizure disease order after CVA, hypertension, type 2 diabetes on oral meds Came to ER with complaint of intractable abdominal pain nausea vomiting started since Sunday Family mentions that patient was having abdominal discomfort after supper, appetite is been very poor, this morning after breakfast patient vomited, had a low-grade 99 degree fever No report of shortness of breath, no chest heaviness, did no dyspnea on exertion At baseline patient is minimally ambulatory she walks to the kitchen, to dining table, and back to his recliner Family noted no change in his baseline functional status, A week ago patient had blood in his urine, which resolved spontaneously, thought possibly he passed a kidney stone In ER, patient was afebrile, white count elevated 23K, CT abdomen pelvis shows acute cholecystitis Patient will be admitted to medical floor Ordered for n.p.o./bowel rest, IV fluids empiric antibiotic with IV Zosyn Surgery consult requested Patient evaluated by the surgical team already, plan for cholecystectomy tomorrow Allergies Allergy/AdvReac Type Severity Reaction Status Date / Time lactose Allergy Intermediate GI SYMPTOMS Verified 08/19/18 13:04 Home Medications Home Medications Medication Instructions Recorded Confirmed Type aspirin 325 mg PO QAM 12/17/17 08/19/18 History ezetimibe [Zetia] 10 mg PO QPM 12/17/17 08/19/18 History levetiracetam 1,500 mg PO BID 12/17/17 08/19/18 History metformin 500 mg PO BID 12/17/17 08/19/18 History ybvjhdnq-jxf-ydiyv-vit K-lycop 1 tab PO DAILY 08/19/18 08/19/18 History [Men's 50 Plus Multivitamin] nystatin-triamcinolone 1 applic TOPICAL BID 08/19/18 08/19/18 History Past Med/Surg History Medical History PAD (peripheral artery disease) History of stroke 5 years ago, residual left sided weakness HTN (hypertension) Diabetes (Chronic) Hypokalemia Seizure last one two years ago Abdominal pain Acute CVA (cerebrovascular accident) Acute CVA (cerebrovascular accident) Facial contusion Fall Post-ictal state Seizure Seizures, generalized convulsive Status epilepticus Surgical History History of appendectomy (Resolved) H/O umbilical hernia repair Family History Other No significant family history Social History Preferred Language: Indonesian Communication Ability: Impaired Stretch Press Operator Required: No Beliefs That Will Affect Care: None Current Living Situation: Spouse Other Information That Helps Us Care for You: No Feels Safe at Home: Yes Safety Concerns: Feels Safe At This Time Smoking Status: Former smoker Do You Dip or Chew Tobacco: No Second Hand Exposure: No Tobacco Cessation Education Requested by Patient: No Hx Alcohol Use: No Hx Substance Use: No Physical Exam Constitutional: WD/WN, vitals as above no acute distress Eyes: PERRL, conjunctivae normal, anicteric sclerae ENMT: external ear and nose normal, oropharynx normal Neck: trachea midline, no thyromegaly Respiratory: normal respiratory effort, lungs clear to auscultation Cardiovascular: RRR, no murmur, no edema Gastrointestinal (Abdomen): Mild right upper quadrant pain, no guarding or rigidity, bowel sounds active Musculoskeletal: no cyanosis or clubbing, extremities motor strength 5/5 Skin: no rashes, warm and dry Neurologic: PERRL, EOMI, accommodation nl, no face palsy, no dysarthria Psychiatric: A+Ox3, euthymic affect Results & Data Vital Signs (Past 12 Hours) Vital Signs Temp Pulse Pulse Resp BP BP Pulse Ox 08/19/18 17:20 84 18 126/69 96 08/19/18 16:58 122/78 08/19/18 13:49 96 H 18 92 08/19/18 12:24 95 H 17 129/71 98 08/19/18 11:16 94 08/19/18 11:01 95 08/19/18 10:13 37.3 C 45 L 20 120/73 92 (1) Diabetes Diabetes mellitus type: type 2 Diabetes mellitus snf insulin use: without manager intermediate use Diabetes mellitus complication status: with unspecified complications Qualified Code(s): E11.8 - Type 2 diabetes mellitus with unspecified complications (2) Leukocytosis Leukocytosis type: unspecified Qualified Code(s): D72.829 - Elevated white blood cell count, unspecified (3) Vomiting Nausea presence: with nausea Vomiting Intractability: unspecified Vomiting type: unspecified Qualified Code(s): R11.2 - Nausea with vomiting, unspecified
[2018-08-19] MEDS ORDERED: GLUCOSE 40% GEL 15 GM TUBE PO PRN (18:32)
[2018-08-19] MEDS ORDERED: GLUCAGON FOR INJ 1 MG VIAL SQ PRN (18:32)
[2018-08-19] MEDS ORDERED: DEXTROSE 50% 50 ML SYRINGE IV PRN (18:32)
[2018-08-19] MEDS ORDERED: CARBOHYDRATES FOR HYPOGLYCEMIA PO PRN (18:32)
[2018-08-19] MEDS ORDERED: GLUCOSE 10 TABS/TUBE PO PRN (18:32)
--- NOTE | 2018-08-19 18:50 | Surgery Consultation ---
Date of Consultation August 19, 2018 Assessment & Plan (1) Acute cholecystitis: This patient has cholelithiasis with acute cholecystitis. He has mild tachycardia. I would rehydrate him. He is getting intravenous antibiotics. We will schedule for cholecystectomy. I have explained to him the procedure of a laparoscopic cholecystectomy and the possible need to convert to an open procedure. I explained some of the reasons why that might be necessary. We discussed some of the possible complications associated with those procedures and he understands. He signed a consent form. He will also undergo evaluation by medicine prior to surgical intervention to assure that he is medically max imized. Present on Admission?: Yes History of Present Illness Reason for Consultation: Cholecystitis Requesting Physician: Sierra Frey MD History of Present Illness I have been asked by Dr. Frey to see this 73-year-old male who presented to the emergency room with a complaint of abdominal pain. It began 2-1/2 days ago and is located in the right subcostal region. It does not radiate through his back. It does not radiate into the lower abdomen. He has never had pain like this before. He has known cholelithiasis. He had some nausea few episodes of vomiting and had diarrhea this morning. There was no melena or hematochezia. He has never had jaundice, hepatitis or pancreatitis. He has not had fever or chills. Allergies Allergy/AdvReac Type Severity Reaction Status Date / Time lactose Allergy Intermediate GI SYMPTOMS Verified 08/19/18 13:04 Home Medications Home Medications Medication Instructions Recorded Confirmed Type aspirin 325 mg PO QAM 12/17/17 08/19/18 History ezetimibe [Zetia] 10 mg PO QPM 12/17/17 08/19/18 History levetiracetam 1,500 mg PO BID 12/17/17 08/19/18 History metformin 500 mg PO BID 12/17/17 08/19/18 History melnbwpz-rlv-tskcg-vit K-lycop 1 tab PO DAILY 08/19/18 08/19/18 History [Men's 50 Plus Multivitamin] nystatin-triamcinolone 1 applic TOPICAL BID 08/19/18 08/19/18 History Patient History Medical History PAD (peripheral artery disease) History of stroke 5 years ago, residual left sided weakness HTN (hypertension) Diabetes (Chronic) Hypokalemia Seizure last one two years ago Abdominal pain Acute CVA (cerebrovascular accident) Acute CVA (cerebrovascular accident) Facial contusion Fall Post-ictal state Seizure Seizures, generalized convulsive Status epilepticus Surgical History History of appendectomy (Resolved) H/O umbilical hernia repair Family History Other No significant family history Social History Preferred Language: Kyrgyz Communication Ability: Effective Beliefs That Will Affect Care: None Current Living Situation: Spouse Feels Safe at Home: Yes Smoking Status: Former smoker Hx Alcohol Use: No Hx Substance Use: No Review of Systems Constitutional: no fever and no chills Respiratory: no cough and no chest congestion Cardiovascular: no chest pain Gastrointestinal: as per Subjective / HPI Neurologic: Left sided weakness secondary to CVA Physical Exam Constitutional: well developed; no acute distress Neck: trachea midline Respiratory: normal respiratory effort, lungs clear to auscultation Cardiovascular: Rate/Rhythm: regular rate and regular rhythm Gastrointestinal (Abdomen): Inspection/Auscultation: abdomen normal to inspection and normal bowel sounds; abdomen not distended Percussion/Palpation: + abdomen tender (Right subcostal region to moderate palpation); abdomen not rigid Lymphatic: no cervical lymphadenopathy Results & Data Vital Signs (Past 12 Hours) Vital Signs Temp Pulse Pulse Resp BP BP Pulse Ox 08/19/18 17:20 84 18 126/69 96 08/19/18 16:58 122/78 08/19/18 13:49 96 H 18 92 08/19/18 12:24 95 H 17 129/71 98 08/19/18 11:16 94 08/19/18 11:01 95 08/19/18 10:13 37.3 C 45 L 20 120/73 92 Laboratory Results 08/19/18 08/19/18 08/19/18 Range/Units 11:18 11:18 11:18 WBC (4.8-10.8) K/uL RBC (4.7-6.1) M/uL Hgb (14.0-18.0) g/dL Hct (42-52) % MCV (80-100) fL MCH (25-34) pg MCHC (32-36) g/dL RDW Std Deviation (36.4-46.3) fL RDW Coeff of Araceli (11.5-14.5) % Plt Count (130-400) K/uL MPV (7.4-10.4) fL Immature Gran % (Auto) % Neut % (Auto) % Lymph % (Auto) % [place] % (Auto) % Eos % (Auto) % Baso % (Auto) % Immature Gran # (Auto) (0.00-0.02) K/uL Neut # (Auto) (1.4-6.5) K/uL Lymph # (Auto) (1.2-3.4) K/uL [place] # (Auto) (0.11-0.59) K/uL Eos # (Auto) (0-0.5) K/uL Baso # (Auto) (0-0.2) K/uL Sodium 141 (136-145) mmol/L Potassium 2.9 L (3.5-5.1) mmol/L Chloride 102 (98-107) mmol/L Carbon Dioxide 30 (21-32) mmol/L Anion Gap 9.0 (3-11) BUN 31 H (7-18) mg/dl Creatinine 1.35 (0.6-1.4) mg/dl Est Cr Clr Drug Dosing Not Reportable Est GFR ( Amer) 60.4 Est GFR (Non-Af Amer) 52.1 BUN/Creatinine Ratio 22.8 H (10-20) Glucose 199 H (70-99) mg/dl Calcium 9.6 (8.5-10.1) mg/dl Total Bilirubin 1.0 (0.2-1) mg/dl AST 23 (15-37) U/L ALT 64 (12-78) U/L Alkaline Phosphatase 87 (45-117) U/L Troponin I Cancelled < 0.015 (0-0.045) ng/ml Total Protein 7.8 (6.4-8.2) gm/dl Albumin 3.1 L (3.4-5.0) gm/dl Globulin 4.7 H (2.5-4.0) gm/dl Albumin/Globulin Ratio 0.7 L (0.9-2) Lipase 36 L (73-393) U/L Urine Color Ault Urine Appearance Cloudy A (Clear) Urine pH 5.0 (4.5-7.5) Ur Specific [place] 1.028 (1.000-1.030) Urine Protein 2+ H (Negative) Urine Glucose (UA) Negative (Negative) Urine Ketones Negative (Negative) Urine Blood 1+ H (Negative) Urine Nitrite Positive A (Negative) Urine Bilirubin Negative (Negative) Urine Urobilinogen Negative (Negative) Ur Leukocyte Esterase Trace H (Negative) Urine WBC (Auto) 1-5 (0-5) /hpf Urine RBC (Auto) 0-4 (0-4) /hpf U Hyaline Cast (Auto) Not Reportable U Epithel Cells (Auto) >30 H (0-5) /lpf Urine Bacteria (Auto) Negative (Negative) Ur Renal Epithelial Cell 0-5 (0-5) /lpf Granular Casts 1-5 H (0) /lpf Urine Yeast Not Reportable 08/19/18 Range/Units 11:18 WBC 25.35 H (4.8-10.8) K/uL RBC 4.93 (4.7-6.1) M/uL Hgb 16.2 (14.0-18.0) g/dL Hct 44.6 (42-52) % MCV 90.5 (80-100) fL MCH 32.9 (25-34) pg MCHC 36.3 H (32-36) g/dL RDW Std Deviation 44.2 (36.4-46.3) fL RDW Coeff of Araceli 13.4 (11.5-14.5) % Plt Count 326 (130-400) K/uL MPV 10.5 H (7.4-10.4) fL Immature Gran % (Auto) 0.5 % Neut % (Auto) 86.0 % Lymph % (Auto) 6.2 % [place] % (Auto) 7.2 % Eos % (Auto) 0.0 % Baso % (Auto) 0.1 % Immature Gran # (Auto) 0.13 H (0.00-0.02) K/uL Neut # (Auto) 21.79 H (1.4-6.5) K/uL Lymph # (Auto) 1.58 (1.2-3.4) K/uL [place] # (Auto) 1.82 H (0.11-0.59) K/uL Eos # (Auto) 0.01 (0-0.5) K/uL Baso # (Auto) 0.02 (0-0.2) K/uL Sodium (136-145) mmol/L Potassium (3.5-5.1) mmol/L Chloride (98-107) mmol/L Carbon Dioxide (21-32) mmol/L Anion Gap (3-11) BUN (7-18) mg/dl Creatinine (0.6-1.4) mg/dl Est Cr Clr Drug Dosing Est GFR ( Amer) Est GFR (Non-Af Amer) BUN/Creatinine Ratio (10-20) Glucose (70-99) mg/dl Calcium (8.5-10.1) mg/dl Total Bilirubin (0.2-1) mg/dl AST (15-37) U/L ALT (12-78) U/L Alkaline Phosphatase (45-117) U/L Troponin I (0-0.045) ng/ml Total Protein (6.4-8.2) gm/dl Albumin (3.4-5.0) gm/dl Globulin (2.5-4.0) gm/dl Albumin/Globulin Ratio (0.9-2) Lipase (73-393) U/L Urine Color Urine Appearance (Clear) Urine pH (4.5-7.5) Ur Specific [place] (1.000-1.030) Urine Protein (Negative) Urine Glucose (UA) (Negative) Urine Ketones (Negative) Urine Blood (Negative) Urine Nitrite (Negative) Urine Bilirubin (Negative) Urine Urobilinogen (Negative) Ur Leukocyte Esterase (Negative) Urine WBC (Auto) (0-5) /hpf Urine RBC (Auto) (0-4) /hpf U Hyaline Cast (Auto) U Epithel Cells (Auto) (0-5) /lpf Urine Bacteria (Auto) (Negative) Ur Renal Epithelial Cell (0-5) /lpf Granular Casts (0) /lpf Urine Yeast Diagnostic Findings CT Abdomen/pelvis: FINDINGS: Lower chest: There are basilar opacities right greater than left, likely atelectatic. Liver: There is hepatic steatosis. The portal vein and hepatic veins appear patent. Gallbladder: The gallbladder is distended. There are droplets of gas within the gallbladder lumen. There is pericholecystic stranding. There is mild adjacent hepatic hyperemia. The findings are concerning for acute cholecystitis and clin ical correlation this regard is advocated. If desired a nuclear medicine thyroid ablation study could be obtained in follow-up to assess cystic duct patency Spleen: Normal in size and attenuation. Pancreas: Unremarkable. Adrenal glands: Unremarkable. Kidneys: There is symmetric renal cortical enhancement. The kidneys are normal in size without hydronephrosis. Bowel: There are no transition zones indicate bowel obstruction. There is colonic diverticulosis. There are no acute peridiverticular inflammatory changes. There are no findings to indicate acute appendicitis. Peritoneum: There is no intraperitoneal free air or abdominal ascites. Vasculature: Moderate atheromatous changes are present within the aorta. There is ectasia of the infrarenal abdominal aorta which measures 25 mm. Adenopathy: None. Pelvic viscera: There is mild prostamegaly Skeletal structures: No destructive osseous lesions are seen. IMPRESSION: 1. Distended gallbladder with pericholecystic inflammatory change,, adjacent hepatic hyperemia, and tiny gas bubbles within the gallbladder lumen. The findings are concerning for acute cholecystitis and clinical correlation in this regard is advocated. If desired a nuclear medicine hepatobiliary study could be obtained in follow-up to assess cystic duct patency. 2. Hepatic steatosis 3. Basilar atelectatic changes
[2018-08-19 19:52] LABS: Basophils # (auto) 0.02 K/uL (0-0.2); Basophils % (auto) 0.1 %; Eosinophils # (auto) 0.09 K/uL (0-0.5); Eosinophils % (auto) 0.4 %; Hematocrit (blood only) 43.4 % (42-52); Hemoglobin 15.6 g/dL (14.0-18.0); Immature Granulocytes # (auto) 0.11 K/uL (0.00-0.02); Immature Granulocytes % (auto) 0.5 %; Lymphocytes # (auto) 2.48 K/uL (1.2-3.4); Lymphocytes % (auto) 11.2 %; Mean Corpuscular Hgb Conc 35.9 g/dL (32-36); Mean Corpuscular Volume 90.2 fL (80-100); Mean Platelet Volume 10.5 fL (7.4-10.4); Monocytes # (auto) 1.63 K/uL (0.11-0.59); Monocytes % (auto) 7.4 %; Neutrophils # (auto) 17.79 K/uL (1.4-6.5); Neutrophils % (auto) 80.4 %; Platelet Count 301 K/uL (130-400); RDW Coefficient of Variation 13.5 % (11.5-14.5); RDW Standard Deviation 44.8 fL (36.4-46.3); Red Blood Count 4.81 M/uL (4.7-6.1); White Blood Count 22.12 K/uL (4.8-10.8)
[2018-08-19] MEDS: POTASSIUM CHLORIDE 20 MEQ in LACTATED RINGER'S 1,000 ML IV SCH (19:57)
[2018-08-19] MEDS: POTASSIUM CHLORIDE / WTR 10 MEQ/100 ML PLCT IV SCH ×4 (20:04→23:28)
[2018-08-19] MEDS: MoRPHine SULFATE 2 MG/ML CARP IV PRN (20:05)
[2018-08-19 20:09] LABS: BUN Creatinine Ratio 27.6 (10-20); Calcium 9.1 mg/dl (8.5-10.1); Creatinine Clr Calc Pharmacy 63.6 ml/min; Est GFR (African American) 81.8; Est GFR (Non-African American) 70.6; Potassium 3.1 mmol/L (3.5-5.1)
[2018-08-19] MEDS: levETIRAcetam 750 MG in DEXTROSE 5% 100 ML IV SCH (21:28)
[2018-08-19] MEDS: PIPERACILLIN/TAZOBACTAM 3.375 GM in DEXTROSE 5% 100 ML IV SCH (21:50)
[2018-08-19] MEDS: INSULIN ASPART 100 UNITS/ML 3 ML PEN SC SCH (23:44)
[2018-08-20] MEDS: MoRPHine SULFATE 2 MG/ML CARP IV PRN (00:27)
[2018-08-20 00:54] LABS: BUN Creatinine Ratio 23.5 (10-20); Calcium 8.7 mg/dl (8.5-10.1); Creatinine Clr Calc Pharmacy 61.3 ml/min; Est GFR (African American) 78.2; Est GFR (Non-African American) 67.5; Magnesium 1.8 mg/dl (1.8-2.4); Potassium 3.4 mmol/L (3.5-5.1)
[2018-08-20] MEDS: PIPERACILLIN/TAZOBACTAM 3.375 GM in DEXTROSE 5% 100 ML IV SCH ×3 (04:09→20:17)
[2018-08-20] MEDS: POTASSIUM CHLORIDE 20 MEQ in LACTATED RINGER'S 1,000 ML IV SCH (05:24)
[2018-08-20] MEDS: INSULIN ASPART 100 UNITS/ML 3 ML PEN SC SCH ×4 (05:58→23:09)
[2018-08-20 06:19] LABS: Estimated Average Glucose 134 mg/dl; Hemoglobin A1C 6.3 % (4.5-5.6)
[2018-08-20] MEDS ORDERED: MIDAZOLAM HCL 1 MG/ML 2ML VIAL ONE (06:43)
[2018-08-20] MEDS ORDERED: fentaNYL citrate 100 MCG/2 ML VIAL ONE ×2 (06:43→10:19)
[2018-08-20 07:00] LABS: Basophils # (auto) 0.02 K/uL (0-0.2); Basophils % (auto) 0.1 %; Eosinophils # (auto) 0.36 K/uL (0-0.5); Eosinophils % (auto) 2.1 %; Hematocrit (blood only) 40.5 % (42-52); Hemoglobin 13.7 g/dL (14.0-18.0); Immature Granulocytes # (auto) 0.06 K/uL (0.00-0.02); Immature Granulocytes % (auto) 0.4 %; Lymphocytes % (auto) 9.4 %; Mean Corpuscular Hgb Conc 33.8 g/dL (32-36); Mean Corpuscular Volume 92.9 fL (80-100); Mean Platelet Volume 10.6 fL (7.4-10.4); Monocytes # (auto) 1.23 K/uL (0.11-0.59); Monocytes % (auto) 7.3 %; Neutrophils # (auto) 13.67 K/uL (1.4-6.5); Neutrophils % (auto) 80.7 %; Platelet Count 268 K/uL (130-400); RDW Coefficient of Variation 13.4 % (11.5-14.5); RDW Standard Deviation 45.6 fL (36.4-46.3); Red Blood Count 4.36 M/uL (4.7-6.1); White Blood Count 16.94 K/uL (4.8-10.8)
[2018-08-20 07:29] LABS: Albumin Level 2.3 gm/dl (3.4-5.0); BUN Creatinine Ratio 22.4 (10-20); Bilirubin Direct 0.1 mg/dl (0-0.2); Calcium 8.2 mg/dl (8.5-10.1); Creatinine Clr Calc Pharmacy 73.4 ml/min; Est GFR (African American) 97.2; Est GFR (Non-African American) 83.9; Potassium 3.4 mmol/L (3.5-5.1)
[2018-08-20 07:33] LABS: Albumin Globulin Ratio 0.6 (0.9-2); Bilirubin,Total 0.7 mg/dl (0.2-1); Globulin 3.7 gm/dl (2.5-4.0)
--- NOTE | 2018-08-20 08:37 | Hospitalist Progress Note ---
Date of Service August 20, 2018 Subjective ATTENDING ADDENDUM Patient had no anginal symptoms, no complaint of aches dyspnea on exertion shortness of breath for last few weeks, no prior history of coronary artery disease or ME Admitted with acute cholecystitis, Twelve-lead EKG in ER showed subtle ST-T wave changes, no evidence of cardiac ischemia Chest x-ray shows no evidence of pleural effusion, pulmonary congestion or suggestive of CHF Patient remains hemodynamically stable except for right upper quadrant pain secondary to acute cholecystitis Given this patient's age, moderate risk for intra-or post operative cardiac arrhythmia Patient should proceed for cholecystectomy today morning No other cardiac testing or images we will change the risk Potassium noted to be low at 3.4, ordered IV potassium supplement Discussed with on-call surgeon Dr. Osborn, patient patient has acceptable risk/medically stable to proceed for cholecystectomy today Sierra Frey MD Results & Data Vital Signs (Past 12 Hours) Vital Signs Temp Pulse Resp BP Pulse Ox 08/20/18 08:00 36.9 C 84 15 134/80 93 08/19/18 22:45 37.1 C 96 H 16 153/83 H 96
[2018-08-20] MEDS: levETIRAcetam 750 MG in DEXTROSE 5% 100 ML IV SCH (08:56)
[2018-08-20] MEDS ORDERED: HEPARIN (PORCINE) 1000 UNIT/ML 10 ML (CATH LAB USE ONLY) ONE (09:06)
[2018-08-20] MEDS ORDERED: CEFAZOLIN 250 MG/ML 1 GM VIAL ONE ×2 (09:07→10:33)
[2018-08-20] MEDS ORDERED: BUPIVACAINE 0.5 % 5 MG/1 ML MPF 30ML VIAL ONE (09:07)
--- NOTE | 2018-08-20 09:14 | History & Physical Bridge Note ---
Date of Service August 20, 2018 History & Physical Bridge Note I have examined the patient, reviewed the History & Physical and in the interval since the performance of the History & Physical I have noted the following changes of clinical significance: no changes noted
[2018-08-20] MEDS ORDERED: ONDANSETRON INJ 2 MG/ML 2 ML VIAL IV PRN (09:30)
[2018-08-20] MEDS ORDERED: ATROPINE SULFATE 0.1 MG/ML 10ML SYR IV PRN (09:30)
[2018-08-20] MEDS ORDERED: KETOROLAC 30 MG/ML VIAL IV PRN (09:30)
[2018-08-20] MEDS ORDERED: LABETALOL HCL IV 5 MG/ML 20ML IV PRN (09:30)
[2018-08-20] MEDS: LACTATED RINGER'S 1,000 ML IV SCH ×2 (09:37→13:58)
[2018-08-20] MEDS ORDERED: DEXAMETHASONE SOD INJ 4 MG/ML VIAL ONE (10:00)
[2018-08-20] MEDS ORDERED: PROPOFOL IV EMULSION 10 MG/ML 20 ML VIAL IV ONE (10:00)
[2018-08-20] MEDS ORDERED: GLYCOPYRROLATE 0.2 MG/ML VIAL ONE (10:00)
[2018-08-20] MEDS ORDERED: ONDANSETRON INJ 2 MG/ML 2 ML VIAL ONE (10:00)
[2018-08-20] MEDS ORDERED: ROCURONIUM BROMIDE 10 MG/ML 5 ML VIAL ONE (10:00)
[2018-08-20] MEDS ORDERED: NEOSTIGMINE METHYLSULFATE 5 MG/5 ML SYR ONE (10:00)
[2018-08-20] MEDS ORDERED: LIDOCAINE HCL 2% 2 ML VIAL/AMP(20MG/ML) INFIL ONE (10:00)
[2018-08-20] MEDS ORDERED: LABETALOL HCL IV 5 MG/ML 20ML IV ONE (10:39)
[2018-08-20] MEDS ORDERED: FLOSEAL HEMOSTATIC MATRIX 10ML TOP ONE (11:56)
--- NOTE | 2018-08-20 12:13 | Post Operative Brief Note ---
Immediate Post Op Note v1 Date of Surgery August 20, 2018 Pre & Post Diagnosis Operation Date: 08/20/18 07:15 Pre-Op Diagnosis: Acute Cholecystitis Post-Op Diagnosis: Acute Gangrenous Cholecystitis Procedure Operation Date: 08/20/18 07:15 Actual Procedures p Laparoscopic Cholecystectomy (Not Applicable) - Jayro Osborn MD Surgeon Jayro Osborn MD Cupola Melter Brittany clayton PA-C Estimated Blood Loss 30 Findings Consistent with Post-Op Diagnosis Specimens Gallbladder and contents Drains Tavo-Cleaning Drain (in subhepatic space) Anesthesia Type General Complications none
[2018-08-20] MEDS ORDERED: HYDROmorphone INJ 0.5 MG/0.5 ML SYR ONE ×2 (12:47→12:58)
[2018-08-20] MEDS: HYDROmorphone INJ 1 MG/ML SYRINGE IV PRN ×3 (12:48→12:58)
--- NOTE | 2018-08-20 13:32 | Anesthesiology Progress Note ---
Date of Service August 20, 2018 Anesthesia Post Procedure Vital Signs Vital Signs: Temp Pulse Pulse Resp BP BP Pulse Ox 08/20/18 13:20 36.5 C 85 18 144/68 H 97 08/20/18 13:10 86 18 151/85 H 97 08/20/18 13:00 87 18 160/75 H 98 08/20/18 12:50 87 18 143/69 H 96 08/20/18 12:40 85 16 146/74 H 97 08/20/18 12:36 36.0 C L 84 16 135/59 L 94 08/20/18 09:27 36.7 C 82 20 134/82 96 08/20/18 08:00 36.9 C 84 15 134/80 93 08/19/18 22:45 37.1 C 96 H 16 153/83 H 96 08/19/18 18:45 36.5 C 90 18 144/71 H 93 08/19/18 17:20 84 18 126/69 96 08/19/18 16:58 122/78 08/19/18 13:49 96 H 18 92 Pain Intensity Right Upper Abdomen: Pain Intensity: 7 Transfer of Care Handoff Completed per policy Notes Mental Status: alert / awake / arousable Patient Amnestic to Procedure: Yes Nausea / Vomiting: adequately controlled Pain: adequately controlled Airway Patency, RR, SpO2: stable & adequate BP & HR: stable & adequate Hydration State: stable & adequate Anesthetic Complications: no major complications apparent
[2018-08-20] MEDS: POTASSIUM CHLORIDE / WTR 10 MEQ/100 ML PLCT IV SCH ×4 (13:58→15:58)
[2018-08-20] MEDS ORDERED: Nursing to Pharmacy Communication ONE ×2 (14:01→23:32)
[2018-08-20] MEDS: OXYCODONE/ACETAMINOPHEN 5mg/325mg TAB PO PRN (15:47)
--- NOTE | 2018-08-20 17:48 | Hospitalist Progress Note ---
Date of Service August 20, 2018 Assessment & Plan (1) Acute cholecystitis: s/p laparoscopic cholecystectomy earlier today POD #0 recovering well post op appreciate management form surgery Presented with abdominal pain nausea vomiting for approximately [address] abdomen pelvis shows: IMPRESSION: 1. Distended gallbladder with pericholecystic inflammatory change,, adjacent hepatic hyperemia, and tiny gas bubbles within the gallbladder lumen. The findings are concerning for acute cholecystitis and clinical correlation in this regard is advocated. If desired a nuclear medicine hepatobiliary study could be obtained in follow-up to assess cystic duct patency. 2. Hepatic steatosis 3. Basilar atelectatic changes cont empiric abx Zosyn diet advanced -tolerating well OOB , increase activity as tolerated Pt/OT eval requested (2) Hypokalemia: Secondary to poor p.o. intake, nausea vomiting replaced follow BMP (3) Leukocytosis: Secondary to acute cholecystitis, Patient is afebrile, remained stable hemodynamically noevidence of sepsis Lactic acid within normal limit Empiric antibiotic with IV Zosyn, follow blood culture Surgery consulted, s/p laparoscopic cholecystectomy today Repeat CBC in a.m. (4) Vomiting: due to ac Cholecystitis, no further episodes since admission, ordered PRN Zofran CT abdomen pelvis shows no evidence of obstruction diet advanced post procedure tolerating well (5) History of stroke: Takes aspirin 325 mg daily, which is kept on hold for cholecystectomy should be resumed when bleeding risk post cholecystectomy is acceptable per surgery (6) Diabetes: Type 2 diabetes, on oral meds, metformin kept on hold Insulin sliding scale ordered, hemoglobin A1c 6.3 suggestive of well controlled BSG (7) Seizure disorder as sequela of cerebrovascular accident: Last seizure episode approximately 3 years back/2015 On Keppra CODE STATUS discussed with patient and family, willing for short term intubation/mechanical ventilation for surgery DVT prophylaxis: SCD and teds due to impending surgery Disposition: Expected to be discharged home medically stable, PT OT evaluation ordered Update given to patient's daughter and present at bedside Subjective pt seen post op no complain of chest pain or SOB RUQ PAIN has improved no fever or chills completed dinner low fat diet , no abdominal pain or nausea Physical Exam Constitutional: WD/WN, vitals as above no acute distress Eyes: PERRL, conjunctivae normal, anicteric sclerae ENMT: external ear and nose normal, oropharynx normal Neck: trachea midline, no thyromegaly Respiratory: normal respiratory effort, lungs clear to auscultation Cardiovascular: RRR, no murmur, no edema Gastrointestinal (Abdomen): Inspection/Auscultation: + abdomen abnormal to inspection (s/p laparascopic cholecystectomy , CARA drain persent ) Musculoskeletal: no cyanosis or clubbing, extremities motor strength 5/5 Skin: no rashes, warm and dry Neurologic: PERRL, EOMI, accommodation nl, no face palsy, no dysarthria Psychiatric: A+Ox3, euthymic affect Results & Data Vital Signs (Past 12 Hours) Vital Signs Temp Pulse Pulse Resp BP BP Pulse Ox 08/20/18 16:31 37.0 C 89 18 164/80 H 96 08/20/18 16:06 156/83 H 08/20/18 15:34 37.4 C 92 H 16 173/92 H 96 08/20/18 14:38 36.6 C 84 15 162/80 H 96 08/20/18 14:05 36.9 C 84 15 134/80 93 08/20/18 13:35 36.6 C 88 16 134/78 96 08/20/18 13:20 36.5 C 85 18 144/68 H 97 08/20/18 13:10 86 18 151/85 H 97 08/20/18 13:00 87 18 160/75 H 98 08/20/18 12:50 87 18 143/69 H 96 08/20/18 12:40 85 16 146/74 H 97 08/20/18 12:36 36.0 C L 84 16 135/59 L 94 08/20/18 09:27 36.7 C 82 20 134/82 96 08/20/18 08:00 36.9 C 84 15 134/80 93 (1) Diabetes Diabetes mellitus complication status: with unspecified complications Diabetes mellitus jail insulin use: without continuous churn buttermaker use Diabetes mellitus type: type 2 Qualified Code(s): E11.8 - Type 2 diabetes mellitus with unspecified complications (2) Leukocytosis Leukocytosis type: unspecified Qualified Code(s): D72.829 - Elevated white blood cell count, unspecified (3) Vomiting Nausea presence: with nausea Vomiting Intractability: unspecified Vomiting type: unspecified Qualified Code(s): R11.2 - Nausea with vomiting, unspecified
[2018-08-20] MEDS ORDERED: GLUCOSE 40% GEL 15 GM TUBE PO PRN (19:17)
[2018-08-20] MEDS ORDERED: GLUCAGON FOR INJ 1 MG VIAL SQ PRN (19:17)
[2018-08-20] MEDS ORDERED: CARBOHYDRATES FOR HYPOGLYCEMIA PO PRN (19:17)
[2018-08-20] MEDS ORDERED: DEXTROSE 50% 50 ML SYRINGE IV PRN (19:17)
[2018-08-20] MEDS ORDERED: GLUCOSE 10 TABS/TUBE PO PRN (19:17)
[2018-08-20] MEDS ORDERED: levETIRAcetam 500 MG TAB PO SCH (21:00)
--- NOTE | 2018-08-21 01:03 | Operative Report ---
DATE OF OPERATION: 08/20/2018 DATE OF PROCEDURE: 08/20/2018 PREOPERATIVE DIAGNOSIS: Acute cholecystitis. POSTOPERATIVE DIAGNOSIS: Acute gangrenous cholecystitis. PROCEDURE: Laparoscopic cholecystectomy. SURGEON: Jayro Osborn MD [employer] CONSULTANT: Brittany Mata PA-C FINDINGS: The gallbladder wall was thickened with the exception of the patches of gangrenous area. The cystic duct was not dilated. The gallbladder was densely adherent to the liver. There were stones within the lumen. The liver was of normal size and contour. The visible bowel appeared normal. TECHNIQUE: The patient was given general anesthetic and the area was prepped and draped in the usual sterile fashion. Transverse incision was made below the umbilicus, carried down through the subcutaneous tissue to the fascia which was grasped with 2 Shane clamps and incised between. The peritoneum was identified and incised, and the introducer was placed bluntly. The abdomen was insufflated to a pressure of 15 mmHg with carbon dioxide. The upper midline, midclavicular and anterior axillary introducers were placed under direct vision through small skin incisions. We attempted to grasp the gallbladder to place traction but could not grasp it. The gallbladder was then drained using the needle device which was passed under direct vision and passed into the gallbladder and dark bile was removed. The gallbladder could then be grasped and elevated. I then worked down towards the infundibulum and using blunt and hydrodissection, I was able to identify the inferior most portion of the infundibulum and I was able to grasp that and elevate it and separate the gallbladder away from the liver on the lateral side. I then worked into the triangle of Calot. Establishing a plane between the gallbladder and the liver proved to be a difficult, but using careful millimeter by millimeter dissection, I was able to do that. There was some adhesion to the anterior surface of the infundibulum. This was taken down using blunt and minimal cautery dissection. The upper pole of the omentum was noted to be adherent to the undersurface of the falciform and this was divided to make placement of instruments easier. Hydrodissection of the infundibulum laterally and then I opened the peritoneal attachment against the liver was opened and the gallbladder was dissected away from the liver on that medial side allowing for better mobility of the infundibulum. Using additional hydrodissection, I was able to identify the cystic duct. There was a small either arterial branch or more likely lymphatics along the medial side that was , clamped and divided, which allowed me to better visualize the cystic duct and establish a plane behind it with some additional hydrodissection the tissues and then dividing them using cautery. I was able to confidently identify the cystic duct gallbladder junction. I then performed further dissection of the infundibulum away. At that point, it was clear that in the neck of the gallbladder was lodged a stone. I then dropped that back into the bladder. In performing that further dissection, I identified the right hepatic artery looping through the triangle of Calot and posterior to the cystic duct and cystic artery branching off that was identified. I then performed further dissection of the gallbladder as much away from the liver on the medial side, which allowed for much better mobilization and identification. I then placed a clip on the cystic duct and when I attempted to place the second clip, the gallbladder and cystic duct disrupted proximal to that. I was able to see the clip that had been placed and there was a cuff of cystic duct above the clip. The clip was totally across the duct and I felt that it was adequate. I did not want to manipulate that to place a second clip because I did not want to dislodge the first clip. That allowed me to then visualize the cystic artery. I placed 2 clips proximally, one in the gallbladder and divided it. The gallbladder was then peeled off the liver bed. The finding of plane between the gallbladder and the liver was difficult. I was able to see the junction off the lateral side and worked from lateral to medial dividing attachments of the lateral aspect near the fundus. That allowed me then to finish dissecting the body away medially and then worked up towards the fundus and was able to separate the gallbladder. That dissection required meticulous dissection. The gallbladder was placed into an Endobag and brought out through the upper midline incision. That introducer was replaced and the liver edge was elevated. Any blood that had escaped was then removed using suction. The subdiaphragmatic and subhepatic spaces were irrigated and irrigation removed. The gallbladder bed of the liver was inspected. There were 2 areas of bleeding that were controlled with cautery. Further irrigation was performed and the gallbladder bed was again inspected and there was no bleeding. The previously placed clips were intact. The subdiaphragmatic and subhepatic spaces were irrigated and the irrigation was removed and that was repeated until the return was clear. The gallbladder bed of the liver was inspected another time and there was no bleeding. Because of the oozing in the acute nature of the gallbladder, I did fill the gallbladder bed of the liver with FloSeal. A 10 mm Tavo-Cleaning was cut to size and brought out through the anterior axillary introducer site and placed in the subhepatic space. It was secured with 3-0 nylon at the skin level. The gas was allowed to escape and the introducers were removed. The fascia of the umbilical and upper midline introducer sites was closed with interrupted 0 Vicryl and the skin of all the incisions was closed with 4-0 Monocryl in either an interrupted or running subcuticular fashion. The skin was anesthetized with 0.5% Marcaine. The skin was cleansed, dried, benzoin placed, Steri-Strips applied. Estimated blood loss was 30 mL. Sponge, needle and instrument counts were correct prior to closure. The patient tolerated the surgical procedure without complication and was transferred to recovery. I attest to the content of the Intraoperative Record and any orders documented therein. Any exception s are noted below.
[2018-08-21] MEDS: PIPERACILLIN/TAZOBACTAM 3.375 GM in DEXTROSE 5% 100 ML IV SCH ×3 (04:53→20:24)
[2018-08-21] MEDS: OXYCODONE/ACETAMINOPHEN 5mg/325mg TAB PO PRN (05:05)
[2018-08-21] MEDS: MoRPHine SULFATE 4 MG/ML 1 ML CARP\\VIAL IV PRN ×2 (06:16→14:14)
[2018-08-21 06:39] LABS: Basophils # (auto) 0.01 K/uL (0-0.2); Basophils % (auto) 0.1 %; Eosinophils # (auto) 0.03 K/uL (0-0.5); Eosinophils % (auto) 0.2 %; Hematocrit (blood only) 37.8 % (42-52); Hemoglobin 12.8 g/dL (14.0-18.0); Immature Granulocytes # (auto) 0.08 K/uL (0.00-0.02); Immature Granulocytes % (auto) 0.6 %; Lymphocytes # (auto) 1.99 K/uL (1.2-3.4); Lymphocytes % (auto) 14.5 %; Mean Corpuscular Hgb Conc 33.9 g/dL (32-36); Mean Corpuscular Volume 92.6 fL (80-100); Mean Platelet Volume 10.7 fL (7.4-10.4); Monocytes # (auto) 1.14 K/uL (0.11-0.59); Monocytes % (auto) 8.3 %; Neutrophils # (auto) 10.43 K/uL (1.4-6.5); Neutrophils % (auto) 76.3 %; Platelet Count 348 K/uL (130-400); RDW Coefficient of Variation 13.1 % (11.5-14.5); RDW Standard Deviation 44.2 fL (36.4-46.3); Red Blood Count 4.08 M/uL (4.7-6.1); White Blood Count 13.68 K/uL (4.8-10.8)
[2018-08-21 07:20] LABS: Alanine Aminotransferase 87 U/L (12-78); Albumin Globulin Ratio 0.6 (0.9-2); Albumin Level 2.2 gm/dl (3.4-5.0); Alkaline Phosphatase 75 U/L (45-117); Aspartate Aminotransferase 56 U/L (15-37); Bilirubin,Total 0.4 mg/dl (0.2-1); Blood Urea Nitrogen 16 mg/dl (7-18); Calcium 8.2 mg/dl (8.5-10.1); Carbon Dioxide 31 mmol/L (21-32); Chloride 101 mmol/L (98-107); Creatinine Clr Calc Pharmacy 77.6 ml/min; Est GFR (African American) 100.4; Est GFR (Non-African American) 86.6; Glucose 163 mg/dl (70-99); Potassium 3.4 mmol/L (3.5-5.1); Sodium 138 mmol/L (136-145); Total Protein 6.2 gm/dl (6.4-8.2)
[2018-08-21] MEDS ORDERED: POTASSIUM CHLORIDE 10 MEQ TABCR PO STA (07:40)
[2018-08-21] MEDS: levETIRAcetam ORAL SOLN 100MG/ML PO SCH ×2 (08:51→21:53)
[2018-08-21] MEDS: INSULIN ASPART 100 UNITS/ML 3 ML PEN SC SCH ×4 (08:54→21:52)
--- NOTE | 2018-08-21 09:09 | Anesthesiology Progress Note ---
Date of Service August 21, 2018 Anesthesia Post Procedure Vital Signs Vital Signs: Temp Pulse Pulse Resp BP BP Pulse Ox 08/21/18 07:46 36.6 C 86 14 162/78 H 92 08/21/18 03:30 36.9 C 90 18 164/86 H 91 08/20/18 23:05 36.9 C 95 H 18 166/76 H 95 08/20/18 20:18 37.2 C 92 H 18 152/76 H 92 08/20/18 16:31 37.0 C 89 18 164/80 H 96 08/20/18 16:06 156/83 H 08/20/18 15:34 37.4 C 92 H 16 173/92 H 96 08/20/18 14:38 36.6 C 84 15 162/80 H 96 08/20/18 14:05 36.9 C 84 15 134/80 93 08/20/18 13:35 36.6 C 88 16 134/78 96 08/20/18 13:20 36.5 C 85 18 144/68 H 97 08/20/18 13:10 86 18 151/85 H 97 08/20/18 13:00 87 18 160/75 H 98 08/20/18 12:50 87 18 143/69 H 96 08/20/18 12:40 85 16 146/74 H 97 08/20/18 12:36 36.0 C L 84 16 135/59 L 94 08/20/18 09:27 36.7 C 82 20 134/82 96 Pain Intensity Right Upper Abdomen: Pain Intensity: 6 Notes Mental Status: alert / awake / arousable and participated in evaluation Patient Amnestic to Procedure: Yes Nausea / Vomiting: adequately controlled Pain: adequately controlled Airway Patency, RR, SpO2: stable & adequate BP & HR: stable & adequate Hydration State: stable & adequate Anesthetic Complications: no major complications apparent and Pt Satisfied with anesthetic care
--- NOTE | 2018-08-21 09:44 | Surgery Progress Note ---
Date of Service August 21, 2018 Assessment & Plan (1) Acute cholecystitis: POD # 1 s/p laparoscopic cholecystectomy with necrotizing cholecystitis -vitals stable, afebrile post op - Leukocytosis improving , now down to 13K (16K previously) - moderate post op pain - NEELIMA drain with bilious output - Mild bump in LFTS, likely postsurgical Plan: concern for bile leak given neelima drain output. Will discuss with GI in regards to possible ERCP and stent placement Change to NPO continue pain management as needed Continue IV fluids Continue IV Zofran Continue IV Zosyn Continue medical management PT/OT consultations SCDs for DVT prophylaxis Incentive spirometry follow labs Dr. Osborn has seen and examined pt, agrees with above Subjective having abdominal pain, sore at incision sites and drain site tolerating breakfast so far this morning, no nausea or vomiting out of bed sitting in chair, has not ambulated Physical Exam Constitutional: WD/WN, vitals as above no acute distress and not ill appearing Respiratory: normal respiratory effort; no respiratory distress Gastrointestinal (Abdomen): Inspection/Auscultation: + abdominal surgical drain present (bilious output); abdomen not distended Percussion/Palpation: + abdomen tender (at incision sites and drain site, appropriate post op) and abdomen soft; no guarding and abdomen not rigid Skin: no rashes, warm and dry + incision (covered with dressings clean and dry) Psychiatric: A+Ox3, euthymic affect Results & Data Vital Signs (Past 12 Hours) Vital Signs Temp Pulse Pulse Resp BP BP Pulse Ox 08/21/18 07:46 36.6 C 86 14 162/78 H 92 08/21/18 03:30 36.9 C 90 18 164/86 H 91 08/20/18 23:05 36.9 C 95 H 18 166/76 H 95 Laboratory Results 08/21/18 08/21/18 08/21/18 Range/Units 08:09 06:05 06:05 WBC 13.68 H (4.8-10.8) K/uL RBC 4.08 L (4.7-6.1) M/uL Hgb 12.8 L (14.0-18.0) g/dL Hct 37.8 L (42-52) % MCV 92.6 (80-100) fL MCH 31.4 (25-34) pg MCHC 33.9 (32-36) g/dL RDW Std Deviation 44.2 (36.4-46.3) fL RDW Coeff of Araceli 13.1 (11.5-14.5) % Plt Count 348 (130-400) K/uL MPV 10.7 H (7.4-10.4) fL Immature Gran % (Auto) 0.6 % Neut % (Auto) 76.3 % Lymph % (Auto) 14.5 % Heard % (Auto) 8.3 % Eos % (Auto) 0.2 % Baso % (Auto) 0.1 % Immature Gran # (Auto) 0.08 H (0.00-0.02) K/uL Neut # (Auto) 10.43 H (1.4-6.5) K/uL Lymph # (Auto) 1.99 (1.2-3.4) K/uL Heard # (Auto) 1.14 H (0.11-0.59) K/uL Eos # (Auto) 0.03 (0-0.5) K/uL Baso # (Auto) 0.01 (0-0.2) K/uL Sodium 138 (136-145) mmol/L Potassium 3.4 L (3.5-5.1) mmol/L Chloride 101 (98-107) mmol/L Carbon Dioxide 31 (21-32) mmol/L Anion Gap 6.0 (3-11) BUN 16 (7-18) mg/dl Creatinine 0.86 (0.6-1.4) mg/dl Est Cr Clr Drug Dosing 77.6 ml/min Est GFR ( Amer) 100.4 Est GFR (Non-Af Amer) 86.6 BUN/Creatinine Ratio 19.0 (10-20) Glucose 163 H (70-99) mg/dl POC Glucose 164 H (70-99) Calcium 8.2 L (8.5-10.1) mg/dl Total Bilirubin 0.4 (0.2-1) mg/dl Direct Bilirubin TNP AST 56 H (15-37) U/L ALT 87 H (12-78) U/L Alkaline Phosphatase 75 (45-117) U/L Total Protein 6.2 L (6.4-8.2) gm/dl Albumin 2.2 L (3.4-5.0) gm/dl Globulin 4.0 (2.5-4.0) gm/dl Albumin/Globulin Ratio 0.6 L (0.9-2) Specimen Hemolysis 08/20/18 08/20/18 08/20/18 Range/Units 22:57 19:46 17:00 WBC (4.8-10.8) K/uL RBC (4.7-6.1) M/uL Hgb (14.0-18.0) g/dL Hct (42-52) % MCV (80-100) fL MCH (25-34) pg MCHC (32-36) g/dL RDW Std Deviation (36.4-46.3) fL RDW Coeff of Araceli (11.5-14.5) % Plt Count (130-400) K/uL MPV (7.4-10.4) fL Immature Gran % (Auto) % Neut % (Auto) % Lymph % (Auto) % Heard % (Auto) % Eos % (Auto) % Baso % (Auto) % Immature Gran # (Auto) (0.00-0.02) K/uL Neut # (Auto) (1.4-6.5) K/uL Lymph # (Auto) (1.2-3.4) K/uL Heard # (Auto) (0.11-0.59) K/uL Eos # (Auto) (0-0.5) K/uL Baso # (Auto) (0-0.2) K/uL Sodium (136-145) mmol/L Potassium (3.5-5.1) mmol/L Chloride (98-107) mmol/L Carbon Dioxide (21-32) mmol/L Anion Gap (3-11) BUN (7-18) mg/dl Creatinine (0.6-1.4) mg/dl Est Cr Clr Drug Dosing ml/min Est GFR ( Amer) Est GFR (Non-Af Amer) BUN/Creatinine Ratio (10-20) Glucose (70-99) mg/dl POC Glucose 238 H 271 H 226 H (70-99) Calcium (8.5-10.1) mg/dl Total Bilirubin (0.2-1) mg/dl Direct Bilirubin AST (15-37) U/L ALT (12-78) U/L Alkaline Phosphatase (45-117) U/L Total Protein (6.4-8.2) gm/dl Albumin (3.4-5.0) gm/dl Globulin (2.5-4.0) gm/dl Albumin/Globulin Ratio (0.9-2) Specimen Hemolysis / Range/Units 13:09 WBC (4.8-10.8) K/uL RBC (4.7-6.1) M/uL Hgb (14.0-18.0) g/dL Hct (42-52) % MCV (80-100) fL MCH (25-34) pg MCHC (32-36) g/dL RDW Std Deviation (36.4-46.3) fL RDW Coeff of Araceli (11.5-14.5) % Plt Count (130-400) K/uL MPV (7.4-10.4) fL Immature Gran % (Auto) % Neut % (Auto) % Lymph % (Auto) % Heard % (Auto) % Eos % (Auto) % Baso % (Auto) % Immature Gran # (Auto) (0.00-0.02) K/uL Neut # (Auto) (1.4-6.5) K/uL Lymph # (Auto) (1.2-3.4) K/uL Heard # (Auto) (0.11-0.59) K/uL Eos # (Auto) (0-0.5) K/uL Baso # (Auto) (0-0.2) K/uL Sodium (136-145) mmol/L Potassium (3.5-5.1) mmol/L Chloride (98-107) mmol/L Carbon Dioxide (21-32) mmol/L Anion Gap (3-11) BUN (7-18) mg/dl Creatinine (0.6-1.4) mg/dl Est Cr Clr Drug Dosing ml/min Est GFR ( Amer) Est GFR (Non-Af Amer) BUN/Creatinine Ratio (10-20) Glucose (70-99) mg/dl POC Glucose 177 H (70-99) Calcium (8.5-10.1) mg/dl Total Bilirubin (0.2-1) mg/dl Direct Bilirubin AST (15-37) U/L ALT (12-78) U/L Alkaline Phosphatase (45-117) U/L Total Protein (6.4-8.2) gm/dl Albumin (3.4-5.0) gm/dl Globulin (2.5-4.0) gm/dl Albumin/Globulin Ratio (0.9-2) Specimen Hemolysis
--- NOTE | 2018-08-21 10:47 | Gastrointestinal Consultation ---
Date of Consultation August 21, 2018 Assessment & Plan (1) Acute cholecystitis: 73 year old male with history of T2DM, HTN, CVA w/ seizure disorder admitted w/ acute cholecystitis, post-op day 1 w/ concern for bile leak - NPO - ERCP today to evaluate biliary tree - Agree w/ IV ABX - Antiemetics PRN - Analgesia PRN - IVF maintenance - Will discuss with attending. Thank you for allowing us to participate in the care of this patient. Please call with any acute changes, questions or concerns. Please see addendum below with additional recommendation from my supervising physician. Supervising Physician Co-Signing Physician Notes I performed a history and physical examination of the patient, including specifically on physical exam - soft, nontender abdomen. I have discussed the patient's management with Wanda. Please refer to the nurse practitioner's note for the documented findings and plan of care. ERCP for bile leak History of Present Illness Reason for Consultation: bile leak Requesting Physician: Anurag Attending Physician: Consuelo Franz History of Present Illness 73 year old male with history of HTN, T2DM, CVA, seizure disease post-op day 1 laparoscopic cholecystectomy with necrotizing cholecystitis, placement of CARA drain given intraop concern for bile leak now w/ bilious output. Is having mild pain which is post-operatively, Tashi nausea, vomiting. No fever, chills, CP, SOB. ASA daily No AC Mild bump in LFTs Allergies Allergy/AdvReac Type Severity Reaction Status Date / Time lactose Allergy Intermediate GI SYMPTOMS Verified 08/19/18 13:04 Home Medications Home Medications Medication Instructions Recorded Confirmed Type aspirin 325 mg PO QAM 12/17/17 08/19/18 History ezetimibe [Zetia] 10 mg PO QPM 12/17/17 08/19/18 History levetiracetam 1,500 mg PO BID 12/17/17 08/19/18 History metformin 500 mg PO BID 12/17/17 08/19/18 History rywowpal-knm-ogsct-vit K-lycop 1 tab PO DAILY 08/19/18 08/19/18 History [Men's 50 Plus Multivitamin] nystatin-triamcinolone 1 applic TOPICAL BID 08/19/18 08/19/18 History Patient History Medical History PAD (peripheral artery disease) History of stroke 5 years ago, residual left sided weakness HTN (hypertension) Diabetes (Chronic) Hypokalemia Seizure last one two years ago Abdominal pain Acute CVA (cerebrovascular accident) Acute CVA (cerebrovascular accident) Facial contusion Fall Post-ictal state Seizure Seizures, generalized convulsive Status epilepticus Surgical History History of appendectomy (Resolved) H/O umbilical hernia repair Family History Other No significant family history Social History Preferred Language: [place] Communication Ability: Impaired Conference Reservationist Required: No Beliefs That Will Affect Care: None Current Living Situation: Spouse Other Information That Helps Us Care for You: No Feels Safe at Home: Yes Safety Concerns: Feels Safe At This Time Smoking Status: Former smoker Do You Dip or Chew Tobacco: No Second Hand Exposure: No Tobacco Cessation Education Requested by Patient: No Hx Alcohol Use: No Hx Substance Use: No Review of Systems Constitutional: no fever, no chills and no fatigue Respiratory: no cough, no dyspnea and no pain on inspiration Cardiovascular: no chest pain, no radiating jaw, neck or arm pain, no dyspnea on exertion and no palpitations Gastrointestinal: + abdominal pain; no belching, no bloating, no heartburn, no nausea, no vomiting, no coffee ground emesis, no hematemesis, no dysphagia, no cramping, no change in stools, no diarrhea/loose stools, no blood in stools and no melena Physical Exam Constitutional: WD/WN, vitals as above Neck: trachea midline Respiratory: normal respiratory effort Auscultation: + diminished lung sounds; no crackles Cardiovascular: Rate/Rhythm: regular rate and regular rhythm Gastrointestinal (Abdomen): Inspection/Auscultation: normal bowel sounds Percussion/Palpation: + abdomen tender and abdomen soft; no guarding and abdomen not rigid bilious output in CARA Skin: no rashes, warm and dry Results & Data Vital Signs (Past 12 Hours) Vital Signs Temp Pulse Pulse Resp BP BP Pulse Ox 08/21/18 07:46 36.6 C 86 14 162/78 H 92 08/21/18 03:30 36.9 C 90 18 164/86 H 91 08/20/18 23:05 36.9 C 95 H 18 166/76 H 95 Laboratory Results 08/21/18 08/21/18 08/21/18 Range/Units 08:09 06:05 06:05 WBC 13.68 H (4.8-10.8) K/uL RBC 4.08 L (4.7-6.1) M/uL Hgb 12.8 L (14.0-18.0) g/dL Hct 37.8 L (42-52) % MCV 92.6 (80-100) fL MCH 31.4 (25-34) pg MCHC 33.9 (32-36) g/dL RDW Std Deviation 44.2 (36.4-46.3) fL RDW Coeff of Araceli 13.1 (11.5-14.5) % Plt Count 348 (130-400) K/uL MPV 10.7 H (7.4-10.4) fL Immature Gran % (Auto) 0.6 % Neut % (Auto) 76.3 % Lymph % (Auto) 14.5 % [place] % (Auto) 8.3 % Eos % (Auto) 0.2 % Baso % (Auto) 0.1 % Immature Gran # (Auto) 0.08 H (0.00-0.02) K/uL Neut # (Auto) 10.43 H (1.4-6.5) K/uL Lymph # (Auto) 1.99 (1.2-3.4) K/uL [place] # (Auto) 1.14 H (0.11-0.59) K/uL Eos # (Auto) 0.03 (0-0.5) K/uL Baso # (Auto) 0.01 (0-0.2) K/uL Sodium 138 (136-145) mmol/L Potassium 3.4 L (3.5-5.1) mmol/L Chloride 101 (98-107) mmol/L Carbon Dioxide 31 (21-32) mmol/L Anion Gap 6.0 (3-11) BUN 16 (7-18) mg/dl Creatinine 0.86 (0.6-1.4) mg/dl Est Cr Clr Drug Dosing 77.6 ml/min Est GFR ( Amer) 100.4 Est GFR (Non-Af Amer) 86.6 BUN/Creatinine Ratio 19.0 (10-20) Glucose 163 H (70-99) mg/dl POC Glucose 164 H (70-99) Calcium 8.2 L (8.5-10.1) mg/dl Total Bilirubin 0.4 (0.2-1) mg/dl Direct Bilirubin TNP AST 56 H (15-37) U/L ALT 87 H (12-78) U/L Alkaline Phosphatase 75 (45-117) U/L Total Protein 6.2 L (6.4-8.2) gm/dl Albumin 2.2 L (3.4-5.0) gm/dl Globulin 4.0 (2.5-4.0) gm/dl Albumin/Globulin Ratio 0.6 L (0.9-2) Specimen Hemolysis 08/20/18 08/20/18 08/20/18 Range/Units 22:57 19:46 17:00 WBC (4.8-10.8) K/uL RBC (4.7-6.1) M/uL Hgb (14.0-18.0) g/dL Hct (42-52) % MCV (80-100) fL MCH (25-34) pg MCHC (32-36) g/dL RDW Std Deviation (36.4-46.3) fL RDW Coeff of Araceli (11.5-14.5) % Plt Count (130-400) K/uL MPV (7.4-10.4) fL Immature Gran % (Auto) % Neut % (Auto) % Lymph % (Auto) % [place] % (Auto) % Eos % (Auto) % Baso % (Auto) % Immature Gran # (Auto) (0.00-0.02) K/uL Neut # (Auto) (1.4-6.5) K/uL Lymph # (Auto) (1.2-3.4) K/uL [place] # (Auto) (0.11-0.59) K/uL Eos # (Auto) (0-0.5) K/uL Baso # (Auto) (0-0.2) K/uL Sodium (136-145) mmol/L Potassium (3.5-5.1) mmol/L Chloride (98-107) mmol/L Carbon Dioxide (21-32) mmol/L Anion Gap (3-11) BUN (7-18) mg/dl Creatinine (0.6-1.4) mg/dl Est Cr Clr Drug Dosing ml/min Est GFR ( Amer) Est GFR (Non-Af Amer) BUN/Creatinine Ratio (10-20) Glucose (70-99) mg/dl POC Glucose 238 H 271 H 226 H (70-99) Calcium (8.5-10.1) mg/dl Total Bilirubin (0.2-1) mg/dl Direct Bilirubin AST (15-37) U/L ALT (12-78) U/L Alkaline Phosphatase (45-117) U/L Total Protein (6.4-8.2) gm/dl Albumin (3.4-5.0) gm/dl Globulin (2.5-4.0) gm/dl Albumin/Globulin Ratio (0.9-2) Specimen Hemolysis 08/20/18 Range/Units 13:09 WBC (4.8-10.8) K/uL RBC (4.7-6.1) M/uL Hgb (14.0-18.0) g/dL Hct (42-52) % MCV (80-100) fL MCH (25-34) pg MCHC (32-36) g/dL RDW Std Deviation (36.4-46.3) fL RDW Coeff of Araceli (11.5-14.5) % Plt Count (130-400) K/uL MPV (7.4-10.4) fL Immature Gran % (Auto) % Neut % (Auto) % Lymph % (Auto) % [place] % (Auto) % Eos % (Auto) % Baso % (Auto) % Immature Gran # (Auto) (0.00-0.02) K/uL Neut # (Auto) (1.4-6.5) K/uL Lymph # (Auto) (1.2-3.4) K/uL [place] # (Auto) (0.11-0.59) K/uL Eos # (Auto) (0-0.5) K/uL Baso # (Auto) (0-0.2) K/uL Sodium (136-145) mmol/L Potassium (3.5-5.1) mmol/L Chloride (98-107) mmol/L Carbon Dioxide (21-32) mmol/L Anion Gap (3-11) BUN (7-18) mg/dl Creatinine (0.6-1.4) mg/dl Est Cr Clr Drug Dosing ml/min Est GFR ( Amer) Est GFR (Non-Af Amer) BUN/Creatinine Ratio (10-20) Glucose (70-99) mg/dl POC Glucose 177 H (70-99) Calcium (8.5-10.1) mg/dl Total Bilirubin (0.2-1) mg/dl Direct Bilirubin AST (15-37) U/L ALT (12-78) U/L Alkaline Phosphatase (45-117) U/L Total Protein (6.4-8.2) gm/dl Albumin (3.4-5.0) gm/dl Globulin (2.5-4.0) gm/dl Albumin/Globulin Ratio (0.9-2) Specimen Hemolysis
--- NOTE | 2018-08-21 11:21 | Anesthesiology Consultation ---
Date of Service August 21, 2018 Assessment & Plan Chart Review Chart Review: Acceptable Risk for Surgery and Patient NOT seen in Pre Admission Testing Consults Requested none ASA ASA3 Proposed Anesthesia Anesthesia Type: General Risk / Benefits Reviewed With: PT / POA / Parent / Guardian, Accepts Plan and Informed Consent Obtained History Surgery Operation Date: 08/20/18 07:15 Proposed Procedures p Laparoscopic Cholecystectomy No Cholangiogram - Jayro Osborn MD Operation Date: 08/21/18 12:20 Proposed Procedures p Endoscopic Retrograde Cholangiopancreatography - Haseeb Spain MD Height/Weight Height: 1.75 m Weight: 71.214 kg Allergies Allergy/AdvReac Type Severity Reaction Status Date / Time lactose Allergy Intermediate GI SYMPTOMS Verified 08/19/18 13:04 Medications Home Medications Medication Instructions Recorded Confirmed Last Taken aspirin 325 mg PO QAM 12/17/17 08/19/18 12/17/17 ezetimibe [Zetia] 10 mg PO QPM 12/17/17 08/19/18 12/16/17 levetiracetam 1,500 mg PO BID 12/17/17 08/19/18 12/17/17 08:00 metformin 500 mg PO BID 12/17/17 08/19/18 12/17/17 08:00 znzizayw-pyi-ixxru-vit K-lycop 1 tab PO DAILY 08/19/18 08/19/18 Unknown [Men's 50 Plus Multivitamin] nystatin-triamcinolone 1 applic TOPICAL BID 08/19/18 08/19/18 Unknown Active Medications Generic Name Dose Route Start Last Admin Trade Name Freq PRN Reason Stop Dose Admin Piperacillin Sod/Tazobactam 115 mls @ 28.75 mls/hr 08/19/18 20:00 08/21/18 12:49 Sod 3.375 gm/ Dextrose IV 08/29/18 19:59 28.8 mls/hr Q8H ABHIJIT Administration Protocol Insulin Aspart 0 units 08/20/18 19:45 08/21/18 14:08 Novolog Flexpen SC 09/19/18 19:44 1 units ACHS ABHIJIT Administration Levetiracetam 1,500 mg 08/21/18 09:00 08/21/18 08:51 Keppra PO 09/20/18 08:59 1,500 mg BID ABHIJIT Administration Morphine Sulfate 4 mg 08/20/18 14:00 08/21/18 14:14 Morphine Sulfate IV 09/03/18 13:59 4 mg Q2H PRN Administration Pain Oxycodone/Acetaminophen 1 tab 08/20/18 14:00 08/21/18 05:05 Percocet 5mg/325mg PO 09/03/18 13:59 1 tab Q4H PRN Administration Pain NPO Date Last Intake of Fluids: 08/21/18 Time Last Intake of Fluids: 08:00 Date Last Intake of Solids: 08/21/18 Time Last Intake of Solids: 08:00 Past Medical History Medical History PAD (peripheral artery disease) History of stroke 5 years ago, residual left sided weakness HTN (hypertension) Diabetes (Chronic) Hypokalemia Seizure last one two years ago On keppra Abdominal pain Acute CVA (cerebrovascular accident) Acute CVA (cerebrovascular accident) Facial contusion Fall Post-ictal state Seizure Seizures, generalized convulsive Status epilepticus Exercise / Class Metabolic Activity III < 4 Walking/Shop/Light housework Past Family History Family History Other No significant family history Past Surgical History Surgical History History of appendectomy (Resolved) H/O umbilical hernia repair History of laparoscopic cholecystectomy 08/20/18 Gabriel 2 gr 1 Past Anesthesia History No Hx of Anesthesia Complications and No Family Hx of Anesthesia Complications History of PONV No Hx of PONV and No Hx of Motion Sickness Social History Smoking Status: Former smoker Do You Dip or Chew Tobacco: No Hx Alcohol Use: No Hx Substance Use: No Review of Systems Respiratory: no cough and no dyspnea Cardiovascular: no chest pain Gastrointestinal: no heartburn, no nausea and no vomiting Physical Exam Vital Signs Last Vital Signs Temp 36.9 C 08/21/18 15:20 Pulse 86 08/21/18 15:20 Resp 16 08/21/18 15:20 BP 126/78 08/21/18 15:20 Pulse Ox 91 08/21/18 15:20 ENMT Mouth: + edentulous; no TMJ abnormality and no TMJ clicking Thyromental Distance: > or= 3.5 Finger Breadths Mallampati Class: II Neck normal visual inspection and + facial hair; neck extension not limited Respiratory Auscultation: lungs clear to auscultation bilaterally Cardiovascular Rate/Rhythm: regular rate and regular rhythm Psychiatric Orientation: alert and oriented x 3 Testing Laboratory Results Laboratory Tests 08/21/18 08/21/18 06:05 06:05 WBC 13.68 H Hgb 12.8 L Hct 37.8 L Plt Count 348 Sodium 138 Potassium 3.4 L Chloride 101 Carbon Dioxide 31 BUN 16 Creatinine 0.86 Glucose 163 H Electrocardiogram Date: 08/19/18 Findings: + NSST changes and + ST @ (103) L atrial enlargement Chest X-Ray Date: 08/19/18 XR chest 1V portable CLINICAL HISTORY: right lower chest pain COMPARISON STUDY: 12/17/2017 FINDINGS: The heart is mildly enlarged. There is no lobar consolidation. There is no failure. There are no significant pleural effusions. There are basilar opacities statistically atelectatic.[ IMPRESSION: 1. Basilar opacities, likely atelectatic. No evidence of lobar consolidation Electronically signed by: Virgil Rahman M.D. 08/19/2018 12:07 PM Dictated: 08/19/18 1206 Transcribed: 08/19/18 1206 Echocardiogram Date: 08/20/18 EF: 60-65% LV Function: normal Other Findings: + LVH (mild) Aortic sclerosis mild without significant Other Testing Laboratory Tests 12/17/17 08/19/18 08/19/18 19:40 11:18 11:18 WBC 25.35 H Hgb 16.2 Hct 44.6 Plt Count 326 PT 10.0 INR 1.0 APTT 24.3 Sodium 141 Potassium 2.9 L Chloride 102 Carbon Dioxide 30 BUN 31 H Creatinine 1.35 Glucose 199 H
--- NOTE | 2018-08-21 11:31 | Hospitalist Progress Note ---
Date of Service August 21, 2018 Assessment & Plan (1) Acute cholecystitis: S/P Laparoscopic Cholecystectomy with necrotizing cholecystitis -Afebrile, Leucocytosis improving -NPO , IV Zofran -IV Zofran PRN -Per surgery, concern for bile leak given CARA drain output. GI plans to do ERCP to evaluate biliary tree today -Work up- CT abdomen pelvis shows: Distended gallbladder with pericholecystic inflammatory change,, adjacent hepatic hyperemia, and tiny gas bubbles within the gallbladder lumen. The findings are concerning for acute cholecystitis and clinical correlation in this regard is advocated. If desired a nuclear medicine hepatobiliary study could be obtained in follow-up to assess cystic duct patency. 2. Hepatic steatosis 3. Basilar atelectatic changes (2) Hypokalemia: Secondary to poor p.o. intake, nausea vomiting -Replete K -Monitor K, Mg (3) Leukocytosis: Secondary to acute cholecystitis as above (4) History of stroke: Takes aspirin 325 mg daily, which is kept on hold for surgery and procedure should be resumed when bleeding risk post cholecystectomy is acceptable per surgery (5) Diabetes: -Type 2 diabetes, on oral meds, metformin kept on hold -Insulin sliding scale ordered, hemoglobin A1c 6.3 suggestive of well controlled BSG (6) Seizure disorder as sequela of cerebrovascular accident: Last seizure episode approximately 3 years back -On Keppra CODE STATUS discussed with patient and family, willing for short term intubation/mechanical ventilation for surgery DVT prophylaxis: SCD and teds due to impending surgery Disposition: Expected to be discharged home when medically stable, PT OT evaluation ordered For ERCP today Updated daughter and by bedside Subjective Patient does complain of right upper quadrant pain 7/10 in intensity. No fever, chills, vomiting, nausea. N.p.o. currently for scheduled ERCP today Continues to have significant biliary drainage and CARA drain Physical Exam Physical Exam: GENERAL- AAOX3, No acute distress LUNGS- Air entry bilaterally equal. No rales, rhonchi, crackles, wheezes heard. HEART- Regular rate and rhythm. 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
[2018-08-21] MEDS ORDERED: POTASSIUM CHLORIDE 20 MEQ TABCR PO STA (11:36)
[2018-08-21] MEDS ORDERED: INDOMETHACIN 50 MG SUPP PR ONE (15:54)
[2018-08-21] MEDS ORDERED: LIDOCAINE HCL 2% 2 ML VIAL/AMP(20MG/ML) INFIL ONE (15:54)
[2018-08-21] MEDS ORDERED: PROPOFOL IV EMULSION 10 MG/ML 20 ML VIAL IV ONE (15:54)
[2018-08-21] MEDS ORDERED: fentaNYL citrate 100 MCG/2 ML VIAL ONE (15:54)
[2018-08-21] MEDS ORDERED: ROCURONIUM BROMIDE 10 MG/ML 5 ML VIAL ONE (16:46)
[2018-08-21] MEDS ORDERED: NEOSTIGMINE METHYLSULFATE 5 MG/5 ML SYR ONE (16:51)
[2018-08-21] MEDS ORDERED: GLYCOPYRROLATE 0.2 MG/ML VIAL ONE (16:51)
--- NOTE | 2018-08-21 16:52 | Operative Report ---
Post Operative Report Pre & Post Diagnosis Operation Date: 08/20/18 07:15 Pre-Op Diagnosis: Acute Cholecystitis Post-Op Diagnosis: Acute Cholecystitis Operation Date: 08/21/18 12:20 Pre-Op Diagnosis: bile leak Post-Op Diagnosis: cystic duct leak, stented Procedure Operation Date: 08/20/18 07:15 Actual Procedures p Laparoscopic Cholecystectomy (Not Applicable) - Jayro Osborn MD Operation Date: 08/21/18 12:20 Actual Procedures p Endoscopic Retrograde Cholangiopancreatography(Not Applicable) - Haseeb Spain MD Surgeon Haseeb Spain MD Power Hammer Operator Brittany clayton PA-C Estimated Blood Loss 0 Findings See Below (Cystic duct leak, sphincterotomy done, CBD stent placed) Specimens None Description of Procedure ERCP I attest to the content of the Intraoperative Record and any orders documented therein. Any exceptions are noted below.
--- NOTE | 2018-08-21 17:12 | Fluoroscopy Report ---
[place] ERCP biliary ductal CLINICAL HISTORY: 73 years-old Male presenting with CHECK DUCTS. TECHNIQUE: Fluoroscopy was provided for endoscopic retrograde cholangiopancreatography. 6 fluoroscopi c image(s) recorded. COMPARISON: CT of abdomen and pelvis from 08/19/2018. FINDINGS: Procedure: Postsurgical changes of cholecystectomy with cholecystectomy clips noted. An endoscope pro jects over the descending duodenum with a microcatheter inserted into the common bile duct. The bile ducts have been opacified with contrast. No intrahepatic or extrahepatic ductal or ductal dilatation. No evidence of choledocholithiasis. A surgical instrument or cholecystostomy tube may also be presen t. Peritoneal spillage: Peritoneal spillage of contrast consistent with a leak, likely at the cystic jake t injection site. Extrahepatic bile ducts: The common bile duct is normal in course and caliber. There are no filling d efects seen within the common bile duct to suggest a retained stone. Contrast is not seen extending into the small bowel. Intrahepatic bile ducts: There is no intrahepatic bile duct dilatation. Fluoroscopy dosage (mGy): 25.69. Fluoroscopy time: 72.2 seconds. Number or time of high level fluoroscopy (HLF), digital spot, or digital subtraction images: 0. IMPRESSION: No choledocholithiasis or biliary ductal dilatation status post cholecystectomy. Electronically signed by: Melvin Glover M.D. 08/21/2018 5:10 PM
--- NOTE | 2018-08-21 17:26 | GI REPORT ---
Patient Name: Silver Terry Procedure Date: 08/21/2018 3:45 PM Date of : 1945 Admit Type: Inpatient Age: 73 Gender: Male Attending MD: Haseeb Spain MD Procedure: ERCP Providers: Haseeb Spain MD Referring MD: Consuelo Franz, Jayro Osborn MD Indications: Treatment of bile leak Medicines: General Anesthesia Complications: No immediate complications. Estimated Blood Loss: Estimated blood loss: none. Procedure: Pre-Anesthesia Assessment: - Prior to the procedure, a History and Physical was performed, and patient medications and allergies were reviewed. The patient is competent. The risks and benefits of the procedure and the sedation options and risks were discussed with the patient. All questions were answered and informed consent was obtained. Patient identification and proposed procedure were verified by the physician and the nurse in the procedure room. Mental Status Examination: alert and oriented. Airway Examination: normal oropharyngeal airway and neck mobility. Respiratory Examination: clear to auscultation. CV Examination: normal. ASA Grade Assessment: III - A patient with severe systemic disease. After reviewing the risks and benefits, the patient was deemed in satisfactory condition to undergo the procedure. The anesthesia plan was to use general anesthesia. Immediately prior to administration of medications, the patient was re-assessed for adequacy to receive sedatives. The heart rate, respiratory rate, oxygen saturations, blood pressure, adequacy of pulmonary ventilation, and response to care were monitored throughout the procedure. The physical status of the patient was re-assessed after the procedure. After obtaining informed consent, the scope was passed under direct vision. Throughout the procedure, the patient's blood pressure, pulse, and oxygen saturations were monitored continuously. The SCOPE was introduced through the mouth, and advanced to the duodenum and used to inject contrast into the bile duct. The ERCP was accomplished without difficulty. The patient tolerated the procedure well. Findings: A sales office administrator film of the abdomen was obtained. Surgical clips, consistent with a previous cholecystectomy, were seen in the area of the right upper quadrant of the abdomen. The esophagus was successfully intubated under direct vision. The scope was advanced to a normal major papilla in the descending duodenum without detailed examination of the pharynx, larynx and associated structures, and upper GI tract. The upper GI tract was grossly normal. A 0.035 inch straight standard Acrobat wire was passed into the biliary tree from the first attempt. The Fusion OMNI sphincterotome was passed over the guidewire and the bile duct was then deeply cannulated. Contrast was injected. I personally interpreted the bile duct images. Ductal flow of contrast was adequate. Image quality was adequate. Contrast extended to the main bile duct. Opacification of the entire biliary tree was successful. The maximum diameter of the ducts was 6 mm. Extravasation of contrast originating from the cystic duct was observed. Biliary sphincterotomy was made with a monofilament Fusion OMNI sphincterotome using ERBE electrocautery. There was no post-sphincterotomy bleeding. The biliary tree was swept with an 8.5 mm balloon starting at the bifurcation. Sludge was swept from the duct. One 10 Fr by 8 cm plastic stent with a single external flap and a single internal flap was placed into the common bile duct. Bile flowed through the stent. The stent was in good position. Indomethacin 100 mg was given via suppository to decrease the risk of post-ERCP pancreatitis (PEP). The total fluoroscopy exposure time was 1 minute and 12 seconds. PD was not cannulated nor injected with contrast. Impression: - A bile leak was found. - A biliary sphincterotomy was performed. - The biliary tree was swept and sludge was found. - One plastic stent was placed into the common bile duct. Recommendation: - [facility]. - Avoid aspirin and nonsteroidal anti-inflammatory medicines for 5 days. - Advance diet as tolerated per surgery team. - Repeat ERCP in 8 weeks to remove stent. Haseeb Spain MD 08/21/2018 5:25:46 PM This report has been signed electronically. Note Initiated On: 08/21/2018 3:45 PM Number of Addenda: 0 I attest to the content of the Intraoperative Record and orders documented therein, exceptions below {[id number]}
--- NOTE | 2018-08-21 17:30 | Anesthesiology Progress Note ---
Date of Service August 21, 2018 Anesthesia Post Procedure Vital Signs Vital Signs: Temp Pulse Pulse Resp BP BP Pulse Ox 08/21/18 17:20 91 H 21 159/91 H 99 08/21/18 17:10 89 12 159/78 H 98 08/21/18 17:04 36 C L 68 15 172/83 H 100 08/21/18 15:20 36.9 C 86 16 126/78 91 08/21/18 11:59 36.6 C 86 13 158/83 H 91 08/21/18 07:46 36.6 C 86 14 162/78 H 92 08/21/18 03:30 36.9 C 90 18 164/86 H 91 08/20/18 23:05 36.9 C 95 H 18 166/76 H 95 08/20/18 20:18 37.2 C 92 H 18 152/76 H 92 Pain Intensity Right Upper Abdomen: Pain Intensity: 7 Transfer of Care Handoff Completed per policy Notes Mental Status: alert / awake / arousable Patient Amnestic to Procedure: Yes Nausea / Vomiting: adequately controlled Pain: adequately controlled Airway Patency, RR, SpO2: stable & adequate BP & HR: stable & adequate Hydration State: stable & adequate Anesthetic Complications: no major complications apparent
[2018-08-22] MEDS: PIPERACILLIN/TAZOBACTAM 3.375 GM in DEXTROSE 5% 100 ML IV SCH ×3 (04:28→20:21)
[2018-08-22] MEDS: OXYCODONE/ACETAMINOPHEN 5mg/325mg TAB PO PRN (07:04)
[2018-08-22 07:22] LABS: Basophils # (auto) 0.02 K/uL (0-0.2); Basophils % (auto) 0.2 %; Eosinophils # (auto) 0.28 K/uL (0-0.5); Eosinophils % (auto) 2.6 %; Hematocrit (blood only) 37.3 % (42-52); Immature Granulocytes # (auto) 0.09 K/uL (0.00-0.02); Immature Granulocytes % (auto) 0.8 %; Lymphocytes % (auto) 13.7 %; Mean Corpuscular Hgb Conc 34.9 g/dL (32-36); Mean Corpuscular Volume 91.4 fL (80-100); Mean Platelet Volume 10.1 fL (7.4-10.4); Monocytes % (auto) 9.1 %; Neutrophils # (auto) 8.05 K/uL (1.4-6.5); Neutrophils % (auto) 73.6 %; Platelet Count 336 K/uL (130-400); RDW Coefficient of Variation 12.8 % (11.5-14.5); RDW Standard Deviation 43.4 fL (36.4-46.3); Red Blood Count 4.08 M/uL (4.7-6.1); White Blood Count 10.94 K/uL (4.8-10.8)
[2018-08-22 07:58] LABS: Albumin Level 2.3 gm/dl (3.4-5.0); Bilirubin Direct 0.1 mg/dl (0-0.2); Calcium 8.7 mg/dl (8.5-10.1); Creatinine Clr Calc Pharmacy 83.5 ml/min; Est GFR (African American) 103.4; Est GFR (Non-African American) 89.2; Potassium 3.6 mmol/L (3.5-5.1)
[2018-08-22 08:01] LABS: Albumin Globulin Ratio 0.6 (0.9-2); Bilirubin,Total 0.4 mg/dl (0.2-1); Globulin 3.9 gm/dl (2.5-4.0); Total Protein 6.2 gm/dl (6.4-8.2)
[2018-08-22] MEDS: MoRPHine SULFATE 4 MG/ML 1 ML CARP\\VIAL IV PRN ×2 (08:05→10:30)
[2018-08-22] MEDS ORDERED: HydrALAZINE HCL 20 MG/ML VIAL IV PRN (08:08)
[2018-08-22] MEDS: LISINOPRIL 10 MG TAB PO SCH ×2 (09:31→09:33)
[2018-08-22] MEDS: levETIRAcetam ORAL SOLN 100MG/ML PO SCH ×2 (09:32→20:16)
[2018-08-22] MEDS: INSULIN ASPART 100 UNITS/ML 3 ML PEN SC SCH ×4 (10:02→21:57)
--- NOTE | 2018-08-22 10:17 | Gastroenterology Progress Note ---
Date of Service August 22, 2018 Assessment & Plan (1) Acute cholecystitis: 73 year old male with history of T2DM, HTN, CVA w/ seizure disorder admitted w/ acute cholecystitis, post-op day 1 w/ concern for bile leak s/p ERCP w/ stenting. Tolerating diet last night. - Avoid aspirin and nonsteroidal anti-inflammatory medicines for 5 days. - Advance diet as tolerated per surgery team. - Repeat ERCP in 8 weeks to remove stent. - Agree w/ IV ABX - Antiemetics PRN - Analgesia PRN - IVF maintenance GI to sign off. Thank you for allowing us to participate in the care of this patient. Please call with any acute changes, questions or concerns. Please see addendum below with additional recommendation from my supervising physician. Supervising Physician Co-Signing Physician Notes I performed a history and physical examination of the patient, including specifically on physical exam - soft, nontender abdomen. I have discussed the patient's management with Wanda. Please refer to the nurse practitioner's note for the documented findings and plan of care. WBC and LFTs trending down. No BM for few days but passing gas. Plan: Laxatives. Obtain KUB. Follow up with surgery. Recall us if needed. Subjective Pt was seen and evaluated, chart reviewed. Mild abd pain, surgical. No nausea, vomiting. Tolerated diet. Passing gas but no BM x 2 days. No fever, chills, CP, SOB. EGD: - A bile leak was found. - A biliary sphincterotomy was performed. - The biliary tree was swept and sludge was found. - One plastic stent was placed into the common bile duct. Review of Systems Constitutional: no fever and no sweats Respiratory: no cough Cardiovascular: no chest pain Gastrointestinal: + abdominal pain (mild surrounding surgical sites); no nausea and no vomiting Physical Exam Constitutional: well developed and well nourished Respiratory: normal respiratory effort Cardiovascular: Rate/Rhythm: regular rate and regular rhythm Gastrointestinal (Abdomen): Inspection/Auscultation: normal bowel sounds Percussion/Palpation: + abdomen tender and abdomen soft; no guarding and abdomen not rigid Skin: no rashes, warm and dry Results & Data Vital Signs (Past 12 Hours) Vital Signs Temp Pulse Resp BP BP Pulse Ox 08/22/18 07:49 36.4 C L 83 16 205/91 H 93 08/22/18 03:33 36.8 C 83 18 160/78 H 95 08/21/18 23:15 36.9 C 85 18 149/76 H 96
--- NOTE | 2018-08-22 11:17 | Hospitalist Progress Note ---
Date of Service August 22, 2018 Assessment & Plan (1) Acute cholecystitis: S/P Laparoscopic Cholecystectomy with necrotizing cholecystitis ON 08/20/2018 S/P ERCP -Biliary leak was found, biliary sphincterectomy performed, stent placed. on 08/21/18 -Afebrile, Leucocytosis improving, LFTs improving -Tolerating diet -IV Morphine PRN, IV Zofran PRN -Work up- CT abdomen pelvis shows: Distended gallbladder with pericholecystic inflammatory change,, adjacent hepatic hyperemia, and tiny gas bubbles within the gallbladder lumen. The findings are concerning for acute cholecystitis and clinical correlation in this regard is advocated. If desired a nuclear medicine hepatobiliary study could be obtained in follow-up to assess cystic duct patency. 2. Hepatic steatosis 3. Basilar atelectatic changes -Appreciate GI, Surgery inputs (2) HTN (hypertension): Uncontrolled BP Not on any medications outpatient -BP up to 200s -Start on Lisinopril 10 mg daily --> Increase it gradually -IV Hydralazine PRN for SBP >180 -Pain control (3) Hypokalemia: Secondary to poor p.o. intake, nausea vomiting -Resolved (4) Leukocytosis: Secondary to acute cholecystitis as above Improving (5) History of stroke: Takes aspirin 325 mg daily, which is kept on hold for surgery and procedure. To be kept off NSAIDS and Aspirin for 5 days from ERCP procedure Should be resumed when bleeding risk post cholecystectomy is acceptable per surgery (6) Diabetes: -Type 2 diabetes, on oral meds, metformin kept on hold -Insulin sliding scale -Hemoglobin A1c 6.3 suggestive of well controlled BSG (7) Seizure disorder as sequela of cerebrovascular accident: Last seizure episode approximately 3 years back -On Keppra CODE STATUS discussed with patient and family, willing for short term intubation/mechanical ventilation for surgery DVT prophylaxis: SCD and TEDs due to impending surgery Disposition: To be determined PT OT evaluation ordered Updated daughter and by bedside yesterday Subjective Pt is still complaining of abdominal pain, upper abdomen. No nausea, vomiting. Tolerated diet. Passing gas but no BM x 2 days. No fever, chills, CP, SOB. Physical Exam Physical Exam: GENERAL- AAOX3, No acute distress LUNGS- Air entry bilaterally equal. No rales, rhonchi, crackles, wheezes heard. HEART- Regular rate and rhythm. No murmurs ABDOMEN- Soft, Tenderness more in upper abdomen, S/P Lap carlotta dressing present, CARA drain with drainage-- pinkish EXTREMITIES- Good peripheral pulses, no edema - Foleys catheter in situ Results & Data Vital Signs (Past 12 Hours) Vital Signs Temp Pulse Resp BP BP Pulse Ox 08/22/18 10:34 189/95 H 08/22/18 07:49 36.4 C L 83 16 205/91 H 93 08/22/18 03:33 36.8 C 83 18 160/78 H 95 (1) Leukocytosis Leukocytosis type: unspecified Qualified Code(s): D72.829 - Elevated white blood cell count, unspecified (2) Diabetes Diabetes mellitus type: type 2 Diabetes mellitus terminal system operator insulin use: without terminal system operator use Diabetes mellitus complication status: with unspecified complications Qualified Code(s): E11.8 - Type 2 diabetes mellitus with unspecified complications
--- NOTE | 2018-08-22 13:31 | Surgery Progress Note ---
Date of Service August 22, 2018 Assessment & Plan (1) Acute cholecystitis: Postoperative day #1, status post laparoscopic cholecystectomy for gangrenous acute cholecystitis. Peristalsis has not completely returned but he has no nausea or vomiting Encouraged him to try a diet but to not be too aggressive Ambulate as possible Will administer suppository to try to stimulate his distal GI tract. Subjective Postoperative day 2 Still having abdominal discomfort Peristalsis has not completely returned yet. ERCP was successful yesterday Does not have nausea but appetite has not returned CARA drainage does not appear bilious at this time Physical Exam Gastrointestinal (Abdomen): Inspection/Auscultation: + abdomen distended and normal bowel sounds (Decreased) Percussion/Palpation: + abdomen tender (Mild upper abdominal) and abdomen soft Results & Data Vital Signs (Past 12 Hours) Vital Signs Temp Pulse Resp BP BP Pulse Ox 08/22/18 12:57 162/81 H 08/22/18 10:34 189/95 H 08/22/18 07:49 36.4 C L 83 16 205/91 H 93 08/22/18 03:33 36.8 C 83 18 160/78 H 95 Laboratory Results 08/22/18 08/22/18 08/22/18 Range/Units 12:16 08:04 07:09 WBC (4.8-10.8) K/uL RBC (4.7-6.1) M/uL Hgb (14.0-18.0) g/dL Hct (42-52) % MCV (80-100) fL MCH (25-34) pg MCHC (32-36) g/dL RDW Std Deviation (36.4-46.3) fL RDW Coeff of Araceli (11.5-14.5) % Plt Count (130-400) K/uL MPV (7.4-10.4) fL Immature Gran % (Auto) % Neut % (Auto) % Lymph % (Auto) % [place] % (Auto) % Eos % (Auto) % Baso % (Auto) % Immature Gran # (Auto) (0.00-0.02) K/uL Neut # (Auto) (1.4-6.5) K/uL Lymph # (Auto) (1.2-3.4) K/uL [place] # (Auto) (0.11-0.59) K/uL Eos # (Auto) (0-0.5) K/uL Baso # (Auto) (0-0.2) K/uL Sodium 140 (136-145) mmol/L Potassium 3.6 (3.5-5.1) mmol/L Chloride 104 (98-107) mmol/L Carbon Dioxide 30 (21-32) mmol/L Anion Gap 6.0 (3-11) BUN 17 (7-18) mg/dl Creatinine 0.80 (0.6-1.4) mg/dl Est Cr Clr Drug Dosing 83.5 ml/min Est GFR ( Amer) 103.4 Est GFR (Non-Af Amer) 89.2 BUN/Creatinine Ratio 21.0 H (10-20) Glucose 162 H (70-99) mg/dl POC Glucose 155 H 163 H (70-99) Calcium 8.7 (8.5-10.1) mg/dl Magnesium 2.0 (1.8-2.4) mg/dl Total Bilirubin 0.4 (0.2-1) mg/dl Direct Bilirubin 0.1 (0-0.2) mg/dl AST 39 H (15-37) U/L ALT 82 H (12-78) U/L Alkaline Phosphatase 69 (45-117) U/L Total Protein 6.2 L (6.4-8.2) gm/dl Albumin 2.3 L (3.4-5.0) gm/dl Globulin 3.9 (2.5-4.0) gm/dl Albumin/Globulin Ratio 0.6 L (0.9-2) 08/22/18 08/21/18 08/21/18 Range/Units 07:09 20:58 18:12 WBC 10.94 H (4.8-10.8) K/uL RBC 4.08 L (4.7-6.1) M/uL Hgb 13.0 L (14.0-18.0) g/dL Hct 37.3 L (42-52) % MCV 91.4 (80-100) fL MCH 31.9 (25-34) pg MCHC 34.9 (32-36) g/dL RDW Std Deviation 43.4 (36.4-46.3) fL RDW Coeff of Araceli 12.8 (11.5-14.5) % Plt Count 336 (130-400) K/uL MPV 10.1 (7.4-10.4) fL Immature Gran % (Auto) 0.8 % Neut % (Auto) 73.6 % Lymph % (Auto) 13.7 % [place] % (Auto) 9.1 % Eos % (Auto) 2.6 % Baso % (Auto) 0.2 % Immature Gran # (Auto) 0.09 H (0.00-0.02) K/uL Neut # (Auto) 8.05 H (1.4-6.5) K/uL Lymph # (Auto) 1.50 (1.2-3.4) K/uL [place] # (Auto) 1.00 H (0.11-0.59) K/uL Eos # (Auto) 0.28 (0-0.5) K/uL Baso # (Auto) 0.02 (0-0.2) K/uL Sodium (136-145) mmol/L Potassium (3.5-5.1) mmol/L Chloride (98-107) mmol/L Carbon Dioxide (21-32) mmol/L Anion Gap (3-11) BUN (7-18) mg/dl Creatinine (0.6-1.4) mg/dl Est Cr Clr Drug Dosing ml/min Est GFR ( Amer) Est GFR (Non-Af Amer) BUN/Creatinine Ratio (10-20) Glucose (70-99) mg/dl POC Glucose 169 H 164 H (70-99) Calcium (8.5-10.1) mg/dl Magnesium (1.8-2.4) mg/dl Total Bilirubin (0.2-1) mg/dl Direct Bilirubin (0-0.2) mg/dl AST (15-37) U/L ALT (12-78) U/L Alkaline Phosphatase (45-117) U/L Total Protein (6.4-8.2) gm/dl Albumin (3.4-5.0) gm/dl Globulin (2.5-4.0) gm/dl Albumin/Globulin Ratio (0.9-2) // Range/Units 17:06 WBC (4.8-10.8) K/uL RBC (4.7-6.1) M/uL Hgb (14.0-18.0) g/dL Hct (42-52) % MCV (80-100) fL MCH (25-34) pg MCHC (32-36) g/dL RDW Std Deviation (36.4-46.3) fL RDW Coeff of Araceli (11.5-14.5) % Plt Count (130-400) K/uL MPV (7.4-10.4) fL Immature Gran % (Auto) % Neut % (Auto) % Lymph % (Auto) % [place] % (Auto) % Eos % (Auto) % Baso % (Auto) % Immature Gran # (Auto) (0.00-0.02) K/uL Neut # (Auto) (1.4-6.5) K/uL Lymph # (Auto) (1.2-3.4) K/uL [place] # (Auto) (0.11-0.59) K/uL Eos # (Auto) (0-0.5) K/uL Baso # (Auto) (0-0.2) K/uL Sodium (136-145) mmol/L Potassium (3.5-5.1) mmol/L Chloride (98-107) mmol/L Carbon Dioxide (21-32) mmol/L Anion Gap (3-11) BUN (7-18) mg/dl Creatinine (0.6-1.4) mg/dl Est Cr Clr Drug Dosing ml/min Est GFR ( Amer) Est GFR (Non-Af Amer) BUN/Creatinine Ratio (10-20) Glucose (70-99) mg/dl POC Glucose 183 H (70-99) Calcium (8.5-10.1) mg/dl Magnesium (1.8-2.4) mg/dl Total Bilirubin (0.2-1) mg/dl Direct Bilirubin (0-0.2) mg/dl AST (15-37) U/L ALT (12-78) U/L Alkaline Phosphatase (45-117) U/L Total Protein (6.4-8.2) gm/dl Albumin (3.4-5.0) gm/dl Globulin (2.5-4.0) gm/dl Albumin/Globulin Ratio (0.9-2)
[2018-08-22] MEDS ORDERED: BISACODYL 10 MG SUPP PR ONE (13:32)
[2018-08-22] MEDS: ACETAMINOPHEN 325 MG TAB PO PRN (17:40)
--- NOTE | 2018-08-22 19:26 | XRay Report ---
XR KUB/Abdomen 1 view CLINICAL HISTORY: abd pain, constipation pain COMPARISON STUDY: 12/17/2017 FINDINGS: Drain position over the right upper quadrant. Common bile duct stent is present. Mild generalized colonic ileus. No secondary evidence for free air. IMPRESSION: 1. Postoperative change. 2. Mild generalized nonobstructive colonic ileus. The above report was generated using voice recognition software. It may contain grammatical, syntax or spelling errors. Electronically signed by: Jayro Rodriguez M.D. 08/22/2018 7:25 PM
[2018-08-22] MEDS: POLYETHYLENE (MIRALAX) 17 GM PACK PO PRN (20:12)
[2018-08-22] MEDS ORDERED: DOCUSATE SODIUM 100 MG CAP PO SCH (21:00)
[2018-08-22] MEDS: DOCUSATE SODIUM SYRUP 100 MG/10 ML UDC PO SCH (21:21)
[2018-08-23] MEDS: PIPERACILLIN/TAZOBACTAM 3.375 GM in DEXTROSE 5% 100 ML IV SCH ×3 (03:46→20:19)
[2018-08-23] MEDS: ONDANSETRON INJ 2 MG/ML 2 ML VIAL IV PRN ×2 (04:04→16:12)
[2018-08-23 08:02] LABS: Albumin Level 2.2 gm/dl (3.4-5.0); BUN Creatinine Ratio 16.3 (10-20); Calcium 8.8 mg/dl (8.5-10.1); Creatinine Clr Calc Pharmacy 102.7 ml/min; Est GFR (African American) 112.7; Est GFR (Non-African American) 97.2; Potassium 3.1 mmol/L (3.5-5.1)
[2018-08-23 08:08] LABS: Albumin Globulin Ratio 0.5 (0.9-2); Bilirubin,Total 0.6 mg/dl (0.2-1); Globulin 4.1 gm/dl (2.5-4.0); Total Protein 6.3 gm/dl (6.4-8.2)
--- NOTE | 2018-08-23 08:17 | Gastroenterology Progress Note ---
Date of Service August 23, 2018 Assessment & Plan (1) Acute cholecystitis: 73 year old male with history of T2DM, HTN, CVA w/ seizure disorder admitted w/ acute cholecystitis, post-op day 1 w/ concern for bile leak s/p ERCP w/ stenting. Tolerating diet last night. Did have abdominal pain yesterday, KUB without obstruction. Passing gas and had a liquid stool this AM. - Would continue bowel regimen - Consider repeat KUB if symptoms persist, worsen - Would try to limit narcotic analgesia - Avoid aspirin and nonsteroidal anti-inflammatory medicines for 3 more days. - Advance diet as tolerated per surgery team. - Repeat ERCP in 8 weeks to remove stent. - Agree w/ IV ABX - Antiemetics PRN - Analgesia PRN - IVF maintenance GI to sign off. Thank you for allowing us to participate in the care of this patient. Please call with any acute changes, questions or concerns. Please see addendum below with additional recommendation from my supervising physician. Supervising Physician Co-Signing Physician Notes I saw and evaluated the patient. He underwent ERCP for a bile leak. The patient does have some pain this morning but appears to be improved this afternoon after having a bowel movement. Physical examination Elderly male in no obvious distress Abdomen mildly distended Impression: Patient with a recent bile leak after cholecystectomy for gangrenous cholecystitis. Would recommend continued close observation. Should the patient have elevation of his white blood cell count tomorrow or further pain would then suggest imaging such as CT scan to evaluate for evidence of an abscess. Recommendations MiraLAX 17 g/day Daily labs Continue broad-spectrum antibiotics CT scan showed white blood cell count or abdominal pain continue. Subjective Pt was seen and evaluated, chart reviewed. No acute events noted overnight. Received Dulcolax suppository, PO miralax. Had a small, liquid stool this AM. Abd pain is slightly improved, less severe. Does have nausea. Emesis x 1 this AM. Nonbloody, food/meds that were just ingested. No bilious output from CARA drain. No fever, chills, CP, SOB. Review of Systems 2 Constitutional: no fever, no chills and no sweats Respiratory: no cough, no dyspnea and no pain on inspiration Cardiovascular: no chest pain, no radiating jaw, neck or arm pain and no dyspnea on exertion Gastrointestinal: + abdominal pain, + nausea, + vomiting and + constipation Physical Exam Constitutional: WD/WN, vitals as above Neck: trachea midline Respiratory: no respiratory distress and no cough Auscultation: + diminished lung sounds Cardiovascular: Rate/Rhythm: regular rhythm and + tachycardic Heart Sounds: no murmur Gastrointestinal (Abdomen): Inspection/Auscultation: + hypoactive bowel sounds Percussion/Palpation: + abdomen tender and abdomen soft; no guarding and abdomen not rigid Skin: no rashes, warm and dry Results & Data Vital Signs (Past 12 Hours) Vital Signs Temp Pulse Resp BP Pulse Ox 08/22/18 23:29 160/84 H 08/22/18 23:17 37.3 C 97 H 18 184/81 H 92 Laboratory Results 08/23/18 08/23/18 08/22/18 Range/Units 07:17 07:17 20:40 WBC Pending RBC Pending Hgb Pending Hct Pending MCV Pending MCH Pending MCHC Pending Plt Count Pending Sodium 137 (136-145) mmol/L Potassium 3.1 L (3.5-5.1) mmol/L Chloride 100 (98-107) mmol/L Carbon Dioxide 29 (21-32) mmol/L Anion Gap 8.0 (3-11) BUN 11 (7-18) mg/dl Creatinine 0.65 (0.6-1.4) mg/dl Est Cr Clr Drug Dosing 102.7 ml/min Est GFR ( Amer) 112.7 Est GFR (Non-Af Amer) 97.2 BUN/Creatinine Ratio 16.3 (10-20) Glucose 171 H (70-99) mg/dl POC Glucose 139 H (70-99) Calcium 8.8 (8.5-10.1) mg/dl Total Bilirubin 0.6 (0.2-1) mg/dl AST 21 (15-37) U/L ALT 56 (12-78) U/L Alkaline Phosphatase 72 (45-117) U/L Total Protein 6.3 L (6.4-8.2) gm/dl Albumin 2.2 L (3.4-5.0) gm/dl Globulin 4.1 H (2.5-4.0) gm/dl Albumin/Globulin Ratio 0.5 L (0.9-2) 08/22/18 08/22/18 08/22/18 Range/Units 17:31 12:16 08:04 WBC RBC Hgb Hct MCV MCH MCHC Plt Count Sodium (136-145) mmol/L Potassium (3.5-5.1) mmol/L Chloride (98-107) mmol/L Carbon Dioxide (21-32) mmol/L Anion Gap (3-11) BUN (7-18) mg/dl Creatinine (0.6-1.4) mg/dl Est Cr Clr Drug Dosing ml/min Est GFR ( Amer) Est GFR (Non-Af Amer) BUN/Creatinine Ratio (10-20) Glucose (70-99) mg/dl POC Glucose 173 H 155 H 163 H (70-99) Calcium (8.5-10.1) mg/dl Total Bilirubin (0.2-1) mg/dl AST (15-37) U/L ALT (12-78) U/L Alkaline Phosphatase (45-117) U/L Total Protein (6.4-8.2) gm/dl Albumin (3.4-5.0) gm/dl Globulin (2.5-4.0) gm/dl Albumin/Globulin Ratio (0.9-2)
[2018-08-23 08:21] LABS: Hematocrit (blood only) 38.5 % (42-52); Hemoglobin 13.4 g/dL (14.0-18.0); Mean Corpuscular Hgb Conc 34.8 g/dL (32-36); Mean Corpuscular Volume 89.5 fL (80-100); Mean Platelet Volume 9.9 fL (7.4-10.4); Platelet Count 362 K/uL (130-400); RDW Coefficient of Variation 12.9 % (11.5-14.5); RDW Standard Deviation 42.2 fL (36.4-46.3); White Blood Count 24.16 K/uL (4.8-10.8)
[2018-08-23] MEDS: DOCUSATE SODIUM SYRUP 100 MG/10 ML UDC PO SCH ×3 (08:31→21:50)
[2018-08-23] MEDS ORDERED: POTASSIUM CHLORIDE 20 MEQ TABCR PO STA (08:32)
[2018-08-23] MEDS ORDERED: LISINOPRIL 10 MG TAB PO STA (08:32)
[2018-08-23] MEDS: levETIRAcetam ORAL SOLN 100MG/ML PO SCH ×2 (08:32→21:50)
--- NOTE | 2018-08-23 09:03 | Surgery Progress Note ---
Date of Service August 23, 2018 Assessment & Plan (1) Acute cholecystitis: Status post laparoscopic cholecystectomy postoperative day #3 Peristalsis has not yet returned Continue to monitor but improved today White blood cell count is increased to 24,000 the etiology of which is unclear He is presently on Zosyn There is no obvious source for that Would continue antibiotics. If the return back towards normal would consider doing CT scan of the abdomen and pelvis Continue CARA drainage which has turned serosanguineous after ERCP We will add lipase to this morning's lab evaluation Subjective Postoperative day #3 status post laparoscopic cholecystectomy Status post ERCP postoperative day #2 CARA drain with 30 to 60 cc per shift over the last 24 hours, appears serosanguineous had a liquid bowel movement after the suppository yesterday. Passing small amounts of flatus Had nausea with an episode of vomiting this morning Physical Exam Gastrointestinal (Abdomen): Inspection/Auscultation: + abdomen distended (Mild and improved compared to yesterday) and + abdominal surgical incision (Clean, dry and intact) Percussion/Palpation: + abdomen tender (Minimal upper abdominal) and abdomen soft Results & Data Vital Signs (Past 12 Hours) Vital Signs Temp Pulse Pulse Resp BP Pulse Ox 08/23/18 07:40 37 C 106 H 17 178/83 H 91 08/22/18 23:29 160/84 H 08/22/18 23:17 37.3 C 97 H 18 184/81 H 92 Laboratory Results 08/23/18 08/23/18 08/22/18 Range/Units 07:17 07:17 20:40 WBC 24.16 H (4.8-10.8) K/uL RBC 4.30 L (4.7-6.1) M/uL Hgb 13.4 L (14.0-18.0) g/dL Hct 38.5 L (42-52) % MCV 89.5 (80-100) fL MCH 31.2 (25-34) pg MCHC 34.8 (32-36) g/dL RDW Std Deviation 42.2 (36.4-46.3) fL RDW Coeff of Araceli 12.9 (11.5-14.5) % Plt Count 362 (130-400) K/uL MPV 9.9 (7.4-10.4) fL Sodium 137 (136-145) mmol/L Potassium 3.1 L (3.5-5.1) mmol/L Chloride 100 (98-107) mmol/L Carbon Dioxide 29 (21-32) mmol/L Anion Gap 8.0 (3-11) BUN 11 (7-18) mg/dl Creatinine 0.65 (0.6-1.4) mg/dl Est Cr Clr Drug Dosing 102.7 ml/min Est GFR ( Amer) 112.7 Est GFR (Non-Af Amer) 97.2 BUN/Creatinine Ratio 16.3 (10-20) Glucose 171 H (70-99) mg/dl POC Glucose 139 H (70-99) Calcium 8.8 (8.5-10.1) mg/dl Total Bilirubin 0.6 (0.2-1) mg/dl AST 21 (15-37) U/L ALT 56 (12-78) U/L Alkaline Phosphatase 72 (45-117) U/L Total Protein 6.3 L (6.4-8.2) gm/dl Albumin 2.2 L (3.4-5.0) gm/dl Globulin 4.1 H (2.5-4.0) gm/dl Albumin/Globulin Ratio 0.5 L (0.9-2) 08/22/18 08/22/18 08/22/18 Range/Units 17:31 12:16 08:04 WBC (4.8-10.8) K/uL RBC (4.7-6.1) M/uL Hgb (14.0-18.0) g/dL Hct (42-52) % MCV (80-100) fL MCH (25-34) pg MCHC (32-36) g/dL RDW Std Deviation (36.4-46.3) fL RDW Coeff of Araceli (11.5-14.5) % Plt Count (130-400) K/uL MPV (7.4-10.4) fL Sodium (136-145) mmol/L Potassium (3.5-5.1) mmol/L Chloride (98-107) mmol/L Carbon Dioxide (21-32) mmol/L Anion Gap (3-11) BUN (7-18) mg/dl Creatinine (0.6-1.4) mg/dl Est Cr Clr Drug Dosing ml/min Est GFR ( Amer) Est GFR (Non-Af Amer) BUN/Creatinine Ratio (10-20) Glucose (70-99) mg/dl POC Glucose 173 H 155 H 163 H (70-99) Calcium (8.5-10.1) mg/dl Total Bilirubin (0.2-1) mg/dl AST (15-37) U/L ALT (12-78) U/L Alkaline Phosphatase (45-117) U/L Total Protein (6.4-8.2) gm/dl Albumin (3.4-5.0) gm/dl Globulin (2.5-4.0) gm/dl Albumin/Globulin Ratio (0.9-2)
[2018-08-23] MEDS: INSULIN ASPART 100 UNITS/ML 3 ML PEN SC SCH ×3 (09:09→17:13)
[2018-08-23] MEDS ORDERED: DOCUSATE SODIUM 100 MG CAP PO SCH (09:10)
--- NOTE | 2018-08-23 10:47 | Hospitalist Progress Note ---
Date of Service August 23, 2018 Assessment & Plan (1) Acute cholecystitis: S/P Laparoscopic Cholecystectomy with necrotizing cholecystitis ON 08/20/2018- POD # 3 S/P ERCP -Biliary leak was found, biliary sphincterectomy performed, stent placed. on 08/21/18 - POD # 2 Afebrile, but leucocytosis worsened to 24 k today, HR in 110s Had an episode of N/V today. On diet -IV Morphine PRN, IV Zofran PRN -Work up- CT abdomen pelvis shows: Distended gallbladder with pericholecystic inflammatory change,, adjacent hepatic hyperemia, and tiny gas bubbles within the gallbladder lumen. The findings are concerning for acute cholecystitis and clinical correlation in this regard is advocated. If desired a nuclear medicine hepatobiliary study could be obtained in follow-up to assess cystic duct patency. 2. Hepatic steatosis 3. Basilar atelectatic changes -Appreciate GI, Surgery inputs -Monitor closely with tachycardia, worsening leucocytosis and N/V today (2) HTN (hypertension): Uncontrolled BP, Now better Not on any medications outpatient -Started on Lisinopril 10 mg daily on 08/22-----> Increase it to 10 mg BID today -IV Hydralazine PRN for SBP >180 -Pain control (3) Hypokalemia: Secondary to poor p.o. intake, nausea vomiting -Replete -Monitor (4) Leukocytosis: Secondary to acute cholecystitis as above Leucocytosis worsened today to 24k -Monitor closely as HR up to 110s too -Surgery on board (5) History of stroke: Takes aspirin 325 mg daily, which is kept on hold for surgery and procedure. To be kept off NSAIDS and Aspirin for 5 days from ERCP procedure Should be resumed when bleeding risk post cholecystectomy is acceptable per surgery (6) Diabetes: -Type 2 diabetes, on oral meds, metformin kept on hold -Insulin sliding scale -Hemoglobin A1c 6.3 suggestive of well controlled BSG (7) Seizure disorder as sequela of cerebrovascular accident: Last seizure episode approximately 3 years back -On Keppra CODE STATUS discussed with patient and family, willing for short term intubation/mechanical ventilation for surgery DVT prophylaxis: SCD and TEDs due to impending surgery Disposition: To be determined PT OT evaluation ordered Updated daughter and by bedside yesterday Subjective Patient's pain has improved, but has not had a bowel movement and upset about it. Had a liquid bowel movement yesterday. Had an episode of vomiting with nausea today [place] dizzy when getting out of bed to chair with HR in 112s CARA drain with 30 to 60 cc per shift over the last 24 hours, appears serosanguineous Physical Exam Physical Exam: GENERAL- AAOX3, No acute distress LUNGS- Air entry bilaterally equal. No rales, rhonchi, crackles, wheezes heard. HEART- Regular rate and rhythm. No murmurs ABDOMEN- Soft, Tenderness more in upper abdomen, S/P Lap carlotta dressing present, CARA drain with drainage--serosanguineous EXTREMITIES- Good peripheral pulses, no edema - Foleys catheter in situ Results & Data Vital Signs (Past 12 Hours) Vital Signs Temp Pulse Pulse Resp BP Pulse Ox 08/23/18 10:15 112 H 149/83 H 08/23/18 07:40 37 C 106 H 17 178/83 H 91 08/22/18 23:29 160/84 H 08/22/18 23:17 37.3 C 97 H 18 184/81 H 92 (1) Leukocytosis Leukocytosis type: unspecified Qualified Code(s): D72.829 - Elevated white blood cell count, unspecified (2) Diabetes Diabetes mellitus type: type 2 Diabetes mellitus custodial insulin use: without terminal worker use Diabetes mellitus complication status: with unspecified complications Qualified Code(s): E11.8 - Type 2 diabetes mellitus with unspecified complications
[2018-08-23] MEDS ORDERED: SODIUM CHLORIDE 0.9% 1000ML 1,000 ML IV SCH (11:30)
[2018-08-23] MEDS: LACTATED RINGER'S 1,000 ML IV SCH ×2 (12:05→21:50)
[2018-08-23] MEDS: MoRPHine SULFATE 4 MG/ML 1 ML CARP\\VIAL IV PRN ×2 (13:25→21:54)
[2018-08-23] MEDS ORDERED: Nursing to Pharmacy Communication ONE (15:22)
[2018-08-23] MEDS: ACETAMINOPHEN 325 MG TAB PO PRN (15:34)
[2018-08-23] MEDS: OXYCODONE/ACETAMINOPHEN 5mg/325mg TAB PO PRN (17:32)
[2018-08-23] MEDS ORDERED: PROMETHAZINE HCL 12.5 MG in SODIUM CHLORIDE 0.9% 50 ML IV PRN (20:16)
[2018-08-23] MEDS: LISINOPRIL 10 MG TAB PO SCH (21:50)
[2018-08-24] MEDS: OXYCODONE/ACETAMINOPHEN 5mg/325mg TAB PO PRN ×2 (00:11→23:52)
[2018-08-24] MEDS: INSULIN ASPART 100 UNITS/ML 3 ML PEN SC SCH ×4 (00:13→18:59)
[2018-08-24] MEDS: PIPERACILLIN/TAZOBACTAM 3.375 GM in DEXTROSE 5% 100 ML IV SCH ×3 (04:22→21:00)
[2018-08-24] MEDS: MoRPHine SULFATE 4 MG/ML 1 ML CARP\\VIAL IV PRN ×3 (06:07→15:48)
[2018-08-24] MEDS: ONDANSETRON INJ 2 MG/ML 2 ML VIAL IV PRN (06:08)
[2018-08-24 07:17] LABS: Mean Corpuscular Hgb Conc 35.8 g/dL (32-36); Platelet Count 386 K/uL (130-400)
[2018-08-24 07:37] LABS: Hematocrit (blood only) 35.5 % (42-52); Hemoglobin 12.7 g/dL (14.0-18.0); Mean Platelet Volume 9.8 fL (7.4-10.4); RDW Standard Deviation 42.5 fL (36.4-46.3); Red Blood Count 3.99 M/uL (4.7-6.1); White Blood Count 32.26 K/uL (4.8-10.8)
[2018-08-24 07:41] LABS: BUN Creatinine Ratio 13.1 (10-20); Calcium 8.8 mg/dl (8.5-10.1); Creatinine Clr Calc Pharmacy 96.8 ml/min; Est GFR (African American) 109.9; Est GFR (Non-African American) 94.8; Potassium 3.2 mmol/L (3.5-5.1)
[2018-08-24 07:43] LABS: Albumin Globulin Ratio 0.5 (0.9-2); Bilirubin,Total 0.5 mg/dl (0.2-1); Globulin 3.9 gm/dl (2.5-4.0); Total Protein 5.9 gm/dl (6.4-8.2)
[2018-08-24] MEDS ORDERED: POTASSIUM CHLORIDE 20 MEQ TABCR PO STA (07:51)
--- NOTE | 2018-08-24 08:40 | Surgery Progress Note ---
Date of Service August 24, 2018 Assessment & Plan (1) Acute cholecystitis: POD #4 s/p Lap Cholecystectomy, POD #3 ERCP with stent placement Gangrenous gallbladder, bile leak Pt seen and examined with Dr. Ruffin. Increased abdominal distention, nauseous- will order NG tube to be inserted. H ospitalist service ordered CT scan this AM, will await results of imaging. WBC increased to 32 this AM from 24 yesterday. Lipase 254; Tot Bili 0.5 HR elevated in 100s-120s. Afebrile. Will continue to monitor closely. Subjective Patient laying in bed this AM- reports increased abdominal pain, feels bloated, and feels nauseous. Physical Exam Gastrointestinal (Abdomen): Inspection/Auscultation: + abdomen distended Percussion/Palpation: + abdomen tender +CARA drain (serosang drainage) Results & Data Vital Signs (Past 12 Hours) Vital Signs Temp Pulse Pulse Resp BP BP Pulse Ox 08/24/18 07:53 101 H 08/24/18 07:41 36.9 C 104 H 18 162/98 H 90 08/24/18 04:07 36.9 C 104 H 18 148/76 H 93 08/23/18 23:24 112 H 08/23/18 23:20 36.9 C 114 H 18 158/85 H 99
[2018-08-24] MEDS: DOCUSATE SODIUM SYRUP 100 MG/10 ML UDC PO SCH ×2 (08:45→21:00)
[2018-08-24] MEDS: levETIRAcetam ORAL SOLN 100MG/ML PO SCH ×2 (08:45→21:00)
[2018-08-24] MEDS: LISINOPRIL 10 MG TAB PO SCH ×2 (08:46→21:01)
[2018-08-24] MEDS: LACTATED RINGER'S 1,000 ML IV SCH ×2 (08:49→19:12)
[2018-08-24] MEDS ORDERED: IOVERSOL 100ml IV PRN (09:20)
--- NOTE | 2018-08-24 09:40 | CT Scan Report ---
CT abd pelvis IV con only CT DOSE: 464.86 mGy.cm HISTORY: Post operative detiorating, pancreatitis ? TECHNIQUE: Multiaxial CT images of the abdomen and pelvis were performed following the use of intrave nous contrast. A dose lowering technique was utilized adhering to the principles of ALARA. COMPARISON STUDY: 08/19/2018 FINDINGS: Unchanging bibasilar parenchymal infiltrative/atelectatic change. Diffuse fatty replacement of the liver. Interval cholecystectomy. Combination of minimal gas and complex fluid within the gall bladder fossa region which may be postoperative although a developing collection must be considered. This measures 4 x 1.5 cm. There is a drain in the right upper quadrant. 2. Developing peripancreatic infiltrative change consistent with developing pancreatitis. There is pl acement of a common bile duct stent. No evidence for pancreatic abscess or pseudocyst. Superior mesenteric and portal venous structures re main patent. Kidneys are negative for hydronephrosis. Mild generalized nonobstructive reactive ileus. Small amount of free fluid within the pelvic cul-de-s ac. There is a Mcguire catheter within the bladder. There are findings of chronic sigmoid diverticulosi s. IMPRESSION: 1. Interval cholecystectomy. 2. Placement of common bile duct stent as well as right upper quadrant drain. 3. Complex air and fluid pocket in the gallbladder fossa measuring 4 x 1.5 cm. This may simply repres ent postoperative change versus developing abscess. 4. Developing pancreatitis. 5.. Pancreatic infiltrative change. No evidence for pancreatic abscess or pseudocyst at this time. 6. Unchanged bibasilar parenchymal atelectatic/infiltrative change. The above report was generated using voice recognition software. It may contain grammatical, syntax or spelling errors. Electronically signed by: Jayro Rodriguez M.D. 08/24/2018 9:38 AM
--- NOTE | 2018-08-24 10:20 | Hospitalist Progress Note ---
Date of Service August 24, 2018 Assessment & Plan (1) Sepsis: (2) Acute cholecystitis: Developing sepsis post operatively with WBC upto 32k, Tachycardia -S/P Laparoscopic Cholecystectomy with necrotizing cholecystitis on 08/20/2018- POD # 4 -S/P ERCP -Biliary leak was found, biliary sphincterectomy performed, stent placed on 08/21/18 - POD # 3 -Afebrile, but leucocytosis worsened to 32 K today. Persistent tachycardia, abd pain even after stent placement -On 08/23/18 with WBC up to 24k, Tachycardia, Lipase -480 was concerned about ERCP related pancreatitis in setting of ileus ---> Downgraded diet to NPO, IV RL at 100 cc/hour. -Today - continues to have abd pain, tachycardia, WBC up to 32k---> CT scan ordered- Air fluid pocket 4 x 1.5 cm concerning for abscess vs post operative change. Given clinical presentation, probably developing abscess. Developing pancreatitis as well. -Discussed case with Gen surgery Rx: -Continue with NPO, NG tube to be inserted per surgery -IV Zosyn - Day 6. Add Flaygl 500 mg TID per surgery recommendations -IV Morphine PRN, Oxycodone PRN, IV Zofran PRN -Ordered- Blood cx x 2, Lactic acid -Work up- 08/24- CT abd pelvis with IV contrast-interval cholecystectomy, CBD stent, drain, complex air-fluid pocket and gallbladder fossa 4 x 1.5 cm. Postoperative change versus developing abscess, developing pancreatitis with no abscess or pseudocyst, atelectatic changes. 08/22- KUB-Mild generalized nonobstructive colonic ileus, postoperative change 08/19 - CT abdomen pelvis shows: Distended gallbladder with pericholecystic inflammatory change,, adjacent hepatic hyperemia, and tiny gas bubbles within the gallbladder lumen. The findings are concerning for acute cholecystitis and clinical correlation in this regard is advocated. If desired a nuclear medicine hepatobiliary study could be obtained in follow-up to assess cystic duct patency. 2. Hepatic steatosis 3. Basilar atelectatic changes -Monitor closely as high risk of deterioration (3) Hypokalemia: Secondary to poor p.o. intake, nausea vomiting -Replete -Monitor K., MG (4) HTN (hypertension): Uncontrolled BP, Now better Not on any medications outpatient -Started on Lisinopril 10 mg daily on 08/22-----> Increased it to 10 mg BID on 08/23/18 -IV Hydralazine PRN for SBP >180 -Pain control (5) History of stroke: Takes aspirin 325 mg daily, which is kept on hold for surgery and procedure. To be kept off NSAIDS and Aspirin for 5 days from ERCP procedure Should be resumed when bleeding risk post cholecystectomy is acceptable per surgery (6) Diabetes: -Type 2 diabetes, on oral meds, metformin kept on hold -Insulin sliding scale -Hemoglobin A1c 6.3 suggestive of well controlled BSG (7) Seizure disorder as sequela of cerebrovascular accident: Last seizure episode approximately 3 years back/2016 -On Keppra CODE STATUS discussed with patient and family, willing for short term intubation/mechanical ventilation for surgery DVT prophylaxis: SCD and TEDs due to impending surgery Disposition: To be determined PT OT evaluation ordered Updated daughter and by bedside yesterday Subjective Patient continues to deteriorate clinically. Continues to complain of increased abdominal pain 6/10 in intensity. Does have some nausea, no vomiting. Feels bloated. No fever. Had a liquid bowel movement, passing flatus Patient was transferred yesterday to shelter monitor due to persistent tachycardia. Heart rate continues to be in 110-120s even after starting him on IV fluids . Physical Exam Physical Exam: GENERAL- AAOX3, Mild distress secondary to pain LUNGS- Air entry bilaterally equal. No rales, rhonchi, crackles, wheezes heard. HEART- Regular rate and rhythm. No murmurs ABDOMEN- Firm, Distended + , Tenderness more in upper abdomen, S/P Lap carlotta dressing present, CARA drain with drainage--serosanguineous EXTREMITIES- Good peripheral pulses, no edema - Foleys catheter in situ Results & Data Vital Signs (Past 12 Hours) Vital Signs Temp Pulse Pulse Resp BP BP Pulse Ox 08/24/18 07:53 101 H 08/24/18 07:41 36.9 C 104 H 18 162/98 H 90 08/24/18 04:07 36.9 C 104 H 18 148/76 H 93 08/23/18 23:24 112 H 08/23/18 23:20 36.9 C 114 H 18 158/85 H 99 (1) Diabetes Diabetes mellitus type: type 2 Diabetes mellitus group home insulin use: without terminal manager use Diabetes mellitus complication status: with unspecified complications Qualified Code(s): E11.8 - Type 2 diabetes mellitus with unspecified complications
--- NOTE | 2018-08-24 12:50 | Progress Note ---
DATE: 08/24/2018 Gastroenterology progress note and cross coverage for [facility] Gastroenterology RACE: . HISTORY OF PRESENT ILLNESS: I had the pleasure of seeing Silver Terry today at his bedside. He continues to complain of bilateral upper quadrant abdominal pain which he rates as 4-5/10 in intensity, nonradiating, which he describes as ache. He does state that he has felt warm overnight and has not passed any gas or had a bowel movement following his laparoscopic cholecystectomy for a necrotizing cholecystitis and ERCP with stent placement for bile leak. He states he feels no better than when he arrived at the hospital today. He denies further complaints. PHYSICAL EXAMINATION: VITAL SIGNS: Temp 36.8, pulse 112, respirations 18, blood pressure 187/103, pulse ox 92% on room air. GENERAL: He is awake, cooperative, in mild distress from abdominal pain. CHEST: Clear to auscultation bilaterally. CARDIOVASCULAR SYSTEM: Regular rate and rhythm. ABDOMEN: Soft, tender throughout, slightly distended. There are tinkling bowel sounds. There is no appreciable hepatosplenomegaly. EXTREMITIES: No clubbing, cyanosis, or edema. LABORATORY DATA: Laboratory studies from today include a white blood cell count of 32.26, hemoglobin 12.7, hematocrit 35.5 and a platelet count of 386. Lipase today is normal at 254. Liver panel was unremarkable including a normal total bilirubin of 0.5. CT scan of the abdomen and pelvis today showed a complex air and fluid pocket in the gallbladder fossa measuring 4 x 1.5 cm and common bile duct stent with evidence of developing pancreatitis, pancreatic infiltrative changes. IMPRESSION: A 73-year-old male status post laparoscopic cholecystectomy and ERCP for bile leak, status post ERCP with stenting. PLAN: At the present time, I would recommend continuing broad-spectrum antibiotics as per the surgery team. Recommend daily labs, recommend MiraLax 17 grams p.o. daily in an 8 ounce glass of water. Continue current diet. I will follow his clinical course and make further recommendations as needed.
[2018-08-24] MEDS: metroNIDAZOLE 500 MG/100 ML BAG IV SCH ×2 (13:49→21:01)
[2018-08-24] MEDS: POTASSIUM CHLORIDE / WTR 10 MEQ/100 ML PLCT IV SCH ×2 (17:49→19:12)
[2018-08-25] MEDS: INSULIN ASPART 100 UNITS/ML 3 ML PEN SC SCH ×4 (00:02→19:01)
[2018-08-25] MEDS: PIPERACILLIN/TAZOBACTAM 3.375 GM in DEXTROSE 5% 100 ML IV SCH ×3 (03:45→19:45)
[2018-08-25] MEDS: MoRPHine SULFATE 4 MG/ML 1 ML CARP\\VIAL IV PRN ×3 (03:50→14:11)
[2018-08-25] MEDS: metroNIDAZOLE 500 MG/100 ML BAG IV SCH ×3 (05:15→21:01)
[2018-08-25] MEDS: LACTATED RINGER'S 1,000 ML IV SCH (05:15)
[2018-08-25 07:18] LABS: Hematocrit (blood only) 34.8 % (42-52); Hemoglobin 12.2 g/dL (14.0-18.0); Mean Corpuscular Hgb Conc 35.1 g/dL (32-36); Mean Platelet Volume 9.6 fL (7.4-10.4); Platelet Count 409 K/uL (130-400); RDW Coefficient of Variation 13.1 % (11.5-14.5); Red Blood Count 3.91 M/uL (4.7-6.1); White Blood Count 23.73 K/uL (4.8-10.8)
[2018-08-25 07:41] LABS: Basophils # (auto) 0.03 K/uL (0-0.2); Basophils % (auto) 0.1 %; Eosinophils % (auto) 1.3 %; Immature Granulocytes # (auto) 0.15 K/uL (0.00-0.02); Immature Granulocytes % (auto) 0.6 %; Lymphocytes % (auto) 7.2 %; Monocytes # (auto) 1.44 K/uL (0.11-0.59); Monocytes % (auto) 6.1 %; Neutrophils # (auto) 20.11 K/uL (1.4-6.5); Neutrophils % (auto) 84.7 %; Toxic Granulation 1+
[2018-08-25] MEDS: ONDANSETRON INJ 2 MG/ML 2 ML VIAL IV PRN ×2 (07:46→14:11)
[2018-08-25 07:57] LABS: Albumin Globulin Ratio 0.5 (0.9-2); Albumin Level 1.8 gm/dl (3.4-5.0); BUN Creatinine Ratio 14.2 (10-20); Bilirubin,Total 0.5 mg/dl (0.2-1); Est GFR (African American) 108.6; Est GFR (Non-African American) 93.7; Magnesium 1.8 mg/dl (1.8-2.4); Potassium 3.3 mmol/L (3.5-5.1); Total Protein 5.8 gm/dl (6.4-8.2)
[2018-08-25 08:00] LABS: Calcium 8.7 mg/dl (8.5-10.1)
--- NOTE | 2018-08-25 08:56 | Surgery Progress Note ---
Date of Service August 25, 2018 Assessment & Plan (1) Acute cholecystitis: POD #5 s/p Lap Cholecystectomy, POD #3 ERCP with stent placement Gangrenous gallbladder, bile leak Pt seen and examined with Dr. Ruffin. Flagyl was added to Zosyn therapy. WBC improved from 32.26 yesterday to 23.73 today. Continue medical management. [facility] Gen Surgery will resume care tomorrow AM. Please call with questions or concerns. POD #4 s/p Lap Cholecystectomy, POD #3 ERCP with stent placement Gangrenous gallbladder, bile leak Pt seen and examined with Dr. Ruffin. Increased abdominal distention, nauseous- will order NG tube to be inserted. Hospitalist service ordered CT scan this AM, will await results of imaging. WBC increased to 32 this AM from 24 yesterday. Lipase 254; Tot Bili 0.5 HR elevated in 100s-120s. Afebrile. Will continue to monitor closely. Subjective Pt slightly improved this AM. Fever overnight. Afebrile this AM. Unable to tolerate NG tube placement. Still nauseous. Abdominal pain improved. Physical Exam Gastrointestinal (Abdomen): less distended this AM. Results & Data Vital Signs (Past 12 Hours) Vital Signs Temp Pulse Pulse Pulse Resp BP Pulse Ox 08/25/18 08:14 36.7 C 96 H 19 173/92 H 90 08/25/18 04:38 37.2 C 98 H 20 174/83 H 92 08/24/18 23:55 113 H 08/24/18 23:49 173/83 H 08/24/18 23:46 37.1 C 109 H 18 179/85 H 90
[2018-08-25] MEDS: DOCUSATE SODIUM SYRUP 100 MG/10 ML UDC PO SCH ×2 (08:59→19:47)
[2018-08-25] MEDS: levETIRAcetam ORAL SOLN 100MG/ML PO SCH ×2 (09:00→19:47)
[2018-08-25] MEDS: LISINOPRIL 10 MG TAB PO SCH ×2 (09:00→19:47)
--- NOTE | 2018-08-25 09:12 | Hospitalist Progress Note ---
Date of Service August 25, 2018 Assessment & Plan (1) Sepsis: (2) Acute cholecystitis: Developing sepsis post operatively with WBC upto 32k, Tachycardia, fever spike. Now slight improvement in WBC count- down to 23k, HR improved. D/D considered: Post operative status, ERCP pancreatitis (improving), pneumonia however no hypoxia, resp symptoms, already on IV Zosyn since sx, MRSA neg. -S/P Laparoscopic Cholecystectomy with necrotizing cholecystitis on 08/20/2018- POD # 5 -S/P ERCP -Biliary leak was found, biliary sphincterectomy performed, stent placed on 08/21/18 - POD # 4 -On 08/23/18 with WBC up to 24k, Tachycardia, Lipase -480 was concerned about ERCP related pancreatitis in setting of ileus ---> Downgraded diet to NPO, IV RL at 100 cc/hour. -On 08/24/18 - continues to have abd pain, tachycardia, WBC up to 32k---> CT scan ordered- Air fluid pocket 4 x 1.5 cm concerning for abscess vs post operative change. Given clinical presentation, probably developing abscess. Developing pancreatitis as well. Added IV Flagyl 500 mg PO TID to IV Zosyn per sx recommendations. Could not tolerate NG tube -On 08/25/18- Slight improvement with WBC 23k, HR better-90s, but still has abd pain, nausea. -Appreciate inputs by Gen surgery, GI. Recommends to continue with current rx- monitor closely. Rx: -Continue with NPO, Unable to tolerate NG tube -IV Zosyn - Day 7. IV Flaygl 500 mg TID - Day 2 -IV Morphine PRN, Oxycodone PRN, IV Zofran PRN -Ordered- Blood cx x 2- pending , Lactic acid - Normal; MRSA - negative -Work up- 08/24- CT abd pelvis with IV contrast-interval cholecystectomy, CBD stent, drain, complex air-fluid pocket and gallbladder fossa 4 x 1.5 cm. Postoperative change versus developing abscess, developing pancreatitis with no abscess or pseudocyst, atelectatic changes. 08/22- KUB-Mild generalized nonobstructive colonic ileus, postoperative change 08/19 - CT abdomen pelvis shows: Distended gallbladder with pericholecystic inflammatory change,, adjacent hepatic hyperemia, and tiny gas bubbles within the gallbladder lumen. The findings are concerning for acute cholecystitis and clinical correlation in this regard is advocated. If desired a nuclear medicine hepatobiliary study could be obtained in follow-up to assess cystic duct patency. 2. Hepatic steatosis 3. Basilar atelectatic changes -Monitor closely as high risk of deterioration (3) Hypokalemia: Secondary to poor p.o. intake, nausea vomiting -Replete -Monitor K., MG- Normal (4) HTN (hypertension): Uncontrolled BP likely secondary to pain Not on any medications outpatient -Started on Lisinopril 10 mg daily on 08/22-----> Increased it to 10 mg BID on 08/23/18 -IV Hydralazine PRN for SBP >180 -Pain control (5) History of stroke: -Takes aspirin 325 mg daily, which is kept on hold for post surgery. To be kept off NSAIDS and Aspirin for 5 days from ERCP procedure -Should be resumed when bleeding risk post cholecystectomy is acceptable per surgery (6) Diabetes: -Type 2 diabetes, on oral meds, metformin kept on hold -Insulin sliding scale -Hemoglobin A1c 6.3 suggestive of well controlled BSG (7) Seizure disorder as sequela of cerebrovascular accident: Last seizure episode approximately 3 years back -On Keppra CODE STATUS discussed with patient and family, willing for short term intubation/mechanical ventilation for surgery DVT prophylaxis: SCD and TEDs due to post surgery status Disposition: To be determined PT OT on board Updated daughter over phone today Subjective Pt slightly improved this AM. But still has abdominal pain, nausea. Had fever spike 37.9 yesterday. Bloating + Unable to tolerate NG tube HR has improved, 90s now Physical Exam Physical Exam: GENERAL- AAOX3, Mild distress secondary to pain LUNGS- Air entry bilaterally equal. No rales, rhonchi, crackles, wheezes heard. HEART- Regular rate and rhythm. No murmurs ABDOMEN- Firm, Distended + , Tenderness more in upper abdomen, S/P Lap carlotta dressing present, CARA drain with drainage--serosanguineous EXTREMITIES- Good peripheral pulses, no edema - Foleys catheter in situ Results & Data Vital Signs (Past 12 Hours) Vital Signs Temp Pulse Pulse Pulse Resp BP Pulse Ox 08/25/18 08:14 36.7 C 96 H 19 173/92 H 90 08/25/18 04:38 37.2 C 98 H 20 174/83 H 92 08/24/18 23:55 113 H 08/24/18 23:49 173/83 H 08/24/18 23:46 37.1 C 109 H 18 179/85 H 90 (1) Diabetes Diabetes mellitus type: type 2 Diabetes mellitus usp insulin use: without usp use Diabetes mellitus complication status: with unspecified complications Qualified Code(s): E11.8 - Type 2 diabetes mellitus with unspecified complications
[2018-08-25] MEDS ORDERED: POTASSIUM CHLORIDE 20 MEQ TABCR PO STA (09:28)
[2018-08-25] MEDS: POLYETHYLENE (MIRALAX) 17 GM PACK PO PRN (09:46)
[2018-08-25] MEDS: D5W AND 1/2NSS + 40MEQ KCL 40 MEQ/1,000 ML BAG IV SCH ×2 (10:50→20:36)
--- NOTE | 2018-08-25 12:42 | Progress Note ---
DATE: 08/25/2018 GASTROENTEROLOGY PROGRESS NOTE AND CROSS COVERAGE FOR [facility] GI SUBJECTIVE: I had the pleasure of seeing Silver Terry at his bedside today. He continues to complain of diffuse abdominal pain. He describes the pain as a chronic ache, 4-5/10 in intensity, nonradiating without alleviating factors at present. He does state that he has passed a significant amount of flatus, but has not had a bowel movement. He denies any fevers, chills, nausea, vomiting, hematemesis, melena or hematochezia. He has no further complaints. REVIEW OF SYSTEMS: Negative x10 system review other than pertinent positives listed in the HPI. PHYSICAL EXAMINATION: VITAL SIGNS: Include temperature of 36.7, pulse of 96, respirations 19, blood pressure 173/92, pulse ox 90% on room air. GENERAL: He is chronic ill appearing, in mild acute distress from pain. HEAD: Normocephalic, atraumatic. EYES: Pupils equally round. Extraocular muscles are intact. CHEST: Clear to auscultation bilaterally. CARDIOVASCULAR SYSTEM: Regular rate and rhythm. ABDOMEN: Soft, tender throughout. Slightly distended. There are positive bowel sounds, though tinkling. EXTREMITIES: No clubbing, cyanosis, or edema. LABORATORY STUDIES: Include a white blood cell count of 23.73 which is improved from 32.26 yesterday, hemoglobin 12.2, hematocrit 34.8 and a platelet count of 409. His sodium is 137, potassium 3.3, chloride 99, bicarbonate 31, BUN 10, creatinine 0.71, blood glucose 149. Liver panel was unremarkable. IMPRESSION: A 73-year-old male status post laparoscopic cholecystectomy and ERCP for bile leak with stent placement. PLAN: I would recommend continuing broad-spectrum antibiotics as per the primary team. He will continue on MiraLax 17 grams daily in an 8-ounce glass of water. I would recommend continuing his current diet. It does appear that his white blood cell count is improved, though the patient clinically is not improved significantly at this time. I will follow his clinical course and make further recommendations. Once again, thanks for allowing me to participate in the care of this patient. If you have any further questions, please do not hesitate in contacting me.
[2018-08-25] MEDS: OXYCODONE/ACETAMINOPHEN 5mg/325mg TAB PO PRN (16:38)
[2018-08-26] MEDS: INSULIN ASPART 100 UNITS/ML 3 ML PEN SC SCH ×5 (00:12→21:38)
[2018-08-26] MEDS: PIPERACILLIN/TAZOBACTAM 3.375 GM in DEXTROSE 5% 100 ML IV SCH ×3 (04:03→20:17)
[2018-08-26] MEDS: metroNIDAZOLE 500 MG/100 ML BAG IV SCH ×3 (05:10→21:38)
[2018-08-26] MEDS: D5W AND 1/2NSS + 40MEQ KCL 40 MEQ/1,000 ML BAG IV SCH ×3 (05:10→23:26)
[2018-08-26 06:07] LABS: Basophils # (auto) 0.02 K/uL (0-0.2); Basophils % (auto) 0.1 %; Eosinophils # (auto) 0.53 K/uL (0-0.5); Eosinophils % (auto) 2.8 %; Hematocrit (blood only) 36.9 % (42-52); Hemoglobin 12.9 g/dL (14.0-18.0); Immature Granulocytes % (auto) 0.5 %; Lymphocytes % (auto) 7.9 %; Mean Corpuscular Volume 90.2 fL (80-100); Mean Platelet Volume 10.1 fL (7.4-10.4); Monocytes # (auto) 1.24 K/uL (0.11-0.59); Monocytes % (auto) 6.5 %; Neutrophils # (auto) 15.59 K/uL (1.4-6.5); Neutrophils % (auto) 82.2 %; Platelet Count 448 K/uL (130-400); RDW Standard Deviation 42.7 fL (36.4-46.3); Red Blood Count 4.09 M/uL (4.7-6.1); White Blood Count 18.98 K/uL (4.8-10.8)
[2018-08-26 06:40] LABS: BUN Creatinine Ratio 11.1 (10-20); Calcium 8.8 mg/dl (8.5-10.1); Creatinine Clr Calc Pharmacy 98.2 ml/min; Est GFR (African American) 110.6; Est GFR (Non-African American) 95.4; Potassium 3.8 mmol/L (3.5-5.1)
[2018-08-26] MEDS: ONDANSETRON INJ 2 MG/ML 2 ML VIAL IV PRN (07:41)
[2018-08-26] MEDS: MoRPHine SULFATE 4 MG/ML 1 ML CARP\\VIAL IV PRN (07:41)
[2018-08-26] MEDS: LISINOPRIL 10 MG TAB PO SCH (07:42)
[2018-08-26] MEDS: levETIRAcetam ORAL SOLN 100MG/ML PO SCH ×2 (07:45→20:19)
[2018-08-26] MEDS: DOCUSATE SODIUM SYRUP 100 MG/10 ML UDC PO SCH ×2 (07:45→20:19)
--- NOTE | 2018-08-26 08:24 | Surgery Progress Note ---
Date of Service August 26, 2018 Assessment & Plan (1) Acute cholecystitis: POD 6 lap carlotta, POD 4 ERCP bowel function returning, will start on clears K+ normalized 3.8, WBC down to [address] Ruffin Subjective feeling better today, passing flatus, no BM Physical Exam Gastrointestinal (Abdomen): Inspection/Auscultation: + abdominal surgical drain present (50 cc) Percussion/Palpation: abdomen soft Results & Data Vital Signs (Past 12 Hours) Vital Signs Temp Pulse Pulse Resp BP BP Pulse Ox 08/26/18 08:03 72 08/26/18 08:00 95 H 08/26/18 07:31 37.2 C 88 18 183/93 H 90 08/26/18 04:45 37.1 C 86 20 170/90 H 92 08/26/18 04:13 95 H 08/25/18 23:59 36.7 C 95 H 16 160/82 H 90
[2018-08-26] MEDS ORDERED: LISINOPRIL 10 MG TAB PO ONE (10:00)
[2018-08-26] MEDS: OXYCODONE/ACETAMINOPHEN 5mg/325mg TAB PO PRN (12:13)
--- NOTE | 2018-08-26 12:50 | Hospitalist Progress Note ---
Date of Service August 26, 2018 Assessment & Plan (1) Sepsis: (2) Acute cholecystitis: Developing sepsis post operatively with WBC upto 32k, Tachycardia, fever spike. Now slight improvement in WBC count- down to 23k, HR improved. D/D considered: Post operative status, ERCP pancreatitis (improving), pneumonia however no hypoxia, resp symptoms, already on IV Zosyn since sx, MRSA neg. -S/P Laparoscopic Cholecystectomy with necrotizing cholecystitis on 08/20/2018- POD # 6 -S/P ERCP -Biliary leak was found, biliary sphincterectomy performed, stent placed on 08/21/18 - POD # 5 -On 08/23/18 with WBC up to 24k, Tachycardia, Lipase -480 was concerned about ERCP related pancreatitis in setting of ileus ---> Downgraded diet to NPO, IV RL at 100 cc/hour. -On 08/24/18 - continues to have abd pain, tachycardia, WBC up to 32k---> CT scan ordered- Air fluid pocket 4 x 1.5 cm concerning for abscess vs post operative change. Given clinical presentation, probably developing abscess. Developing pancreatitis as well. Added IV Flagyl 500 mg PO TID to IV Zosyn per sx recommendations. Could not tolerate NG tube -On 08/25/18- Slight improvement with WBC 23k, HR better-90s, but still has abd pain, nausea. -Appreciate inputs by Gen surgery, GI. Recommends to continue with current rx- monitor closely. -08/26- Slight improvement with WBC down to 18k, HR 90s, No fever spikes. Still requiring IV Morphine 4 mg q 4-6 hours, encouraged percocet in between than IV morphine Rx: -Continue with NPO, Unable to tolerate NG tube -IV Zosyn - Day 7. IV Flaygl 500 mg TID - Day 2 -IV Morphine PRN, Oxycodone PRN, IV Zofran PRN -Ordered- Blood cx x 2- pending , Lactic acid - Normal; MRSA - negative -Work up- 08/24- CT abd pelvis with IV contrast-interval cholecystectomy, CBD stent, drain, complex air-fluid pocket and gallbladder fossa 4 x 1.5 cm. Postoperative change versus developing abscess, developing pancreatitis with no abscess or pseudocyst, atelectatic changes. 08/22- KUB-Mild generalized nonobstructive colonic ileus, postoperative change 08/19 - CT abdomen pelvis shows: Distended gallbladder with pericholecystic inflammatory change,, adjacent hepatic hyperemia, and tiny gas bubbles within the gallbladder lumen. The findings are concerning for acute cholecystitis and clinical correlation in this regard is advocated. If desired a nuclear medicine hepatobiliary study could be obtained in follow-up to assess cystic duct patency. 2. Hepatic steatosis 3. Basilar atelectatic changes -Monitor closely as high risk of deterioration (3) Hypokalemia: Secondary to poor p.o. intake, nausea vomiting Resolved Monitor (4) HTN (hypertension): Uncontrolled BP likely secondary to pain Not on any medications outpatient -Started on Lisinopril 10 mg daily on 08/22-----> Increased it to 10 mg BID on 08/23/18--> Increased to 20 mg BID today -IV Hydralazine PRN for SBP >180 -Pain control (5) History of stroke: -Takes aspirin 325 mg daily, which is kept on hold for post surgery. To be kept off NSAIDS and Aspirin for 5 days from ERCP procedure -Should be resumed when bleeding risk post cholecystectomy is acceptable per surgery (6) Diabetes: -Type 2 diabetes, on oral meds, metformin kept on hold -Insulin sliding scale -Hemoglobin A1c 6.3 suggestive of well controlled BSG (7) Seizure disorder as sequela of cerebrovascular accident: Last seizure episode approximately 3 years back -On Keppra CODE STATUS discussed with patient and family, willing for short term intubation/mechanical ventilation for surgery DVT prophylaxis: SCD and TEDs due to post surgery status Disposition: To be determined PT OT on board Updated daughter and by bedside Subjective Pt slightly improved this AM. But still has abdominal pain, nausea. No more fever spikes. Continues to require IV morphine every 4-6 hours. Has not had a bowel movement Bloating + Unable to tolerate NG tube HR has improved, 90s now Physical Exam Physical Exam: GENERAL- AAOX3, Mild distress secondary to pain LUNGS- Air entry bilaterally equal. No rales, rhonchi, crackles, wheezes heard. HEART- Regular rate and rhythm. No murmurs ABDOMEN- Firm, Distended + , Tenderness more in upper abdomen, S/P Lap carlotta dressing present, CARA drain with drainage--serosanguineous EXTREMITIES- Good peripheral pulses, no edema - Foleys catheter in situ Results & Data Vital Signs (Past 12 Hours) Vital Signs Temp Pulse Pulse Resp BP BP Pulse Ox 08/26/18 12:15 37 C 16 L 16 171/74 H 93 08/26/18 10:27 86 169/83 H 08/26/18 08:03 72 08/26/18 08:00 95 H 08/26/18 07:31 37.2 C 88 18 183/93 H 90 08/26/18 04:45 37.1 C 86 20 170/90 H 92 08/26/18 04:13 95 H (1) Diabetes Diabetes mellitus type: type 2 Diabetes mellitus intermediate designer insulin use: without intermediate designer use Diabetes mellitus complication status: with unspecified complications Qualified Code(s): E11.8 - Type 2 diabetes mellitus with unspecified complications
[2018-08-26] MEDS: LISINOPRIL 20 MG TAB PO SCH (20:18)
--- NOTE | 2018-08-26 21:45 | Progress Note ---
DATE: 08/26/2018 GASTROENTEROLOGY PROGRESS NOTE AND CROSS COVERAGE FOR [facility] GASTROENTEROLOGY RACE: . HISTORY OF PRESENT ILLNESS: I had the pleasure of seeing Silver Terry at his bedside today. He does state that he is feeling better than yesterday. Though he has not had a bowel movement yet, he is passing gas. He states that his abdominal pain has improved. It remains present but now rates it as a 2/10 in intensity. He states that it is nonradiating and denies any alleviating or exacerbating factors. He denies any associated symptoms such as nausea, vomiting, hematemesis, melena, or hematochezia. He has no further complaints. PHYSICAL EXAMINATION: VITAL SIGNS: Includes temperature 37, pulse 84, respirations 16. GENERAL: Chronically ill appearing in no acute distress. CHEST: Clear to auscultation bilaterally. CARDIOVASCULAR SYSTEM: Regular rate and rhythm. ABDOMEN: Soft, tender throughout. Slightly distended. There are positive bowel sounds. EXTREMITIES: No clubbing, cyanosis, or edema. LABORATORY STUDIES: From today include a white blood cell count of 18.98, H and H 12.9 and 36.9, platelet count 448. IMPRESSION: A 73-year-old male status post laparoscopic cholecystectomy and ERCP with bile duct stent placement for bile leak. PLAN: He is doing better at present. I would recommend continuing broad-spectrum antibiotics as per the primary team. I would recommend continued advancement of diet as per surgery. I would recommend continuing him on MiraLax 17 grams daily in 8-ounce glass of water. I will follow his clinical course and make further recommendations as needed. His care will be resumed by [facility] tomorrow. Once again, thanks for allowing me to participate in the care of this patient. If you have any further questions, please do not hesitate in contacting me. LORNA
[2018-08-27] MEDS: PIPERACILLIN/TAZOBACTAM 3.375 GM in DEXTROSE 5% 100 ML IV SCH ×3 (04:23→21:08)
[2018-08-27] MEDS: metroNIDAZOLE 500 MG/100 ML BAG IV SCH ×3 (05:17→21:08)
[2018-08-27 05:52] LABS: Hemoglobin 12.7 g/dL (14.0-18.0); Mean Corpuscular Hgb Conc 35.3 g/dL (32-36); Mean Corpuscular Volume 89.1 fL (80-100); Mean Platelet Volume 9.4 fL (7.4-10.4); Platelet Count 447 K/uL (130-400); RDW Standard Deviation 42.6 fL (36.4-46.3); Red Blood Count 4.04 M/uL (4.7-6.1); White Blood Count 17.92 K/uL (4.8-10.8)
[2018-08-27 06:27] LABS: BUN Creatinine Ratio 7.8 (10-20); Calcium 8.4 mg/dl (8.5-10.1); Creatinine Clr Calc Pharmacy 87.9 ml/min; Est GFR (African American) 105.6; Est GFR (Non-African American) 91.1
[2018-08-27] MEDS: POLYETHYLENE (MIRALAX) 17 GM PACK PO SCH (08:06)
[2018-08-27] MEDS: DOCUSATE SODIUM SYRUP 100 MG/10 ML UDC PO SCH ×2 (08:08→20:44)
[2018-08-27] MEDS: levETIRAcetam ORAL SOLN 100MG/ML PO SCH ×2 (08:10→21:08)
[2018-08-27] MEDS: LISINOPRIL 20 MG TAB PO SCH ×2 (08:10→21:08)
[2018-08-27] MEDS: INSULIN ASPART 100 UNITS/ML 3 ML PEN SC SCH ×4 (08:11→21:09)
--- NOTE | 2018-08-27 09:13 | Surgery Progress Note ---
Date of Service August 27, 2018 Assessment & Plan (1) Acute cholecystitis: Status post laparoscopic cholecystectomy postoperative day #7 POD # 6 s/p ERCP with biliary stent for post cholecystectomy bile leak - increased post op pain on 08/23/18 with increased leukocytosis of 24K, repeat CT scan on 08/24/18 showed developing pancreatitis as well as complex fluid collection in gallbladder fossa which could be developing abscess - leukocytosis improved to 17K today, afebrile, HR improved, pain improving - Positive bowel function today Plan: Continue Po Percocet/Tylenol prn pain with breakthrough IV Morphine. Consider IV Tylenol q 8 hours. Continue clear liquids for now given low appetite and mild nausea, consider addition of breeze Continue IV Abx Recommend discontinuing Mcguire catheter Continue IV Fluids until taking po well OOB to chair and ambulate with assistance incentive spirometry continue neelima drain monitor labs continue medical management continue PT/OT Dr. Osborn has seen and examined pt, agrees with above Subjective "finally had a bowel movement this morning, loose and everywhere" mild nausea, no vomiting pain currently 08/09, better today has not been out of bed yet today, nor yesterday still has catheter in bladder not much of an appetite, taking in some clear liquids Physical Exam Constitutional: WD/WN, vitals as above no acute distress Respiratory: normal respiratory effort; no respiratory distress Gastrointestinal (Abdomen): Inspection/Auscultation: abdomen normal to inspection and + abdominal surgical drain present (serosanguineous output); abdomen not distended Percussion/Palpation: + abdomen tender (at incision sites, appropriate post op) and abdomen soft; no guarding and abdomen not rigid Skin: no rashes, warm and dry + incision (clean/dry/intact with steri strips) Psychiatric: A+Ox3, euthymic affect Results & Data Vital Signs (Past 12 Hours) Vital Signs Temp Pulse Pulse Pulse Resp BP BP 08/27/18 07:35 36.9 C 76 20 179/82 H 08/27/18 04:08 36.8 C 90 18 170/84 H 08/27/18 01:01 89 08/26/18 23:47 37.0 C 92 H 20 154/84 H Pulse Ox 08/27/18 07:35 94 08/27/18 04:08 92 08/27/18 01:01 08/26/18 23:47 90 Laboratory Results 08/27/18 08/27/18 08/27/18 Range/Units 07:47 05:40 05:40 WBC 17.92 H (4.8-10.8) K/uL RBC 4.04 L (4.7-6.1) M/uL Hgb 12.7 L (14.0-18.0) g/dL Hct 36.0 L (42-52) % MCV 89.1 (80-100) fL MCH 31.4 (25-34) pg MCHC 35.3 (32-36) g/dL RDW Std Deviation 42.6 (36.4-46.3) fL RDW Coeff of Araceli 13.0 (11.5-14.5) % Plt Count 447 H (130-400) K/uL MPV 9.4 (7.4-10.4) fL Sodium 137 (136-145) mmol/L Potassium 4.0 (3.5-5.1) mmol/L Chloride 103 (98-107) mmol/L Carbon Dioxide 28 (21-32) mmol/L Anion Gap 6.0 (3-11) BUN 6 L (7-18) mg/dl Creatinine 0.76 (0.6-1.4) mg/dl Est Cr Clr Drug Dosing 87.9 ml/min Est GFR ( Amer) 105.6 Est GFR (Non-Af Amer) 91.1 BUN/Creatinine Ratio 7.8 L (10-20) Glucose 224 H (70-99) mg/dl POC Glucose 232 H (70-99) Calcium 8.4 L (8.5-10.1) mg/dl 08/26/18 08/26/18 08/26/18 Range/Units 20:37 16:24 11:46 WBC (4.8-10.8) K/uL RBC (4.7-6.1) M/uL Hgb (14.0-18.0) g/dL Hct (42-52) % MCV (80-100) fL MCH (25-34) pg MCHC (32-36) g/dL RDW Std Deviation (36.4-46.3) fL RDW Coeff of Araceli (11.5-14.5) % Plt Count (130-400) K/uL MPV (7.4-10.4) fL Sodium (136-145) mmol/L Potassium (3.5-5.1) mmol/L Chloride (98-107) mmol/L Carbon Dioxide (21-32) mmol/L Anion Gap (3-11) BUN (7-18) mg/dl Creatinine (0.6-1.4) mg/dl Est Cr Clr Drug Dosing ml/min Est GFR ( Amer) Est GFR (Non-Af Amer) BUN/Creatinine Ratio (10-20) Glucose (70-99) mg/dl POC Glucose 184 H 189 H 210 H (70-99) Calcium (8.5-10.1) mg/dl Diagnostic Findings Blood culture on 08/24/18 = negative 05/04
[2018-08-27] MEDS: D5W AND 1/2NSS + 40MEQ KCL 40 MEQ/1,000 ML BAG IV SCH ×2 (10:02→20:44)
--- NOTE | 2018-08-27 10:34 | Gastroenterology Progress Note ---
Date of Service August 27, 2018 Assessment & Plan (1) Bile leak, postoperative: 1. Continue to slowly advance diet - would defer to surgery direction. 2. GI will contact the pt to arrange OP ERCP for removal of the stent in approx 8 weeks. 3. Avoid NSAIDs for a total of 5 days post ERCP. 4. GI will sign off. Supervising Physician Co-Signing Physician Notes I saw and evaluated the patient. He had an ERCP last week for complications of a bile leak after cholecystectomy. It appears that his labs are significantly improved from last Sunday. At this point we will plan to do an outpatient ERCP in about 6 weeks with . Please call with any additional questions or concerns during the remainder of the hospital admission. GI to sign off for the present time Subjective Mr. Terry is a 73-year-old male admitted on sepsis, acute cholecystitis, gallstone pancreatitis, underwent lap cholecystectomy on 08/[address] Spain on 08/21 sphincterotomy and placement of a CBD stent Today, awake, alert, oriented and mentions some pain but appears comfortable. WBC 17, Hb 12, Hct 36, Transaminases were mildly elevated on 08/21 and 08/22, otherwise LFTs normal. Lipase 480 on 08/23, normal on 08/24. Review of Systems Review of Systems: ROS: Gen: + weakness (improving) , + fevers (not since 08/24) Eyes: No eye redness, or pain, no recent vision changes Resp: No SOB, no cough Cardio: No palpitations/irregular beats, no chest pain GI: + continues with upper abdominal pain but reports improved and appears comfortable. No nausea/vomiting : Denies pain on urination Skin: No jaundice, itching or new rashes Physical Exam Constitutional: WD/WN, vitals as above + ill appearing Eyes: PERRL, conjunctivae normal, anicteric sclerae ENMT: external ear and nose normal, oropharynx normal Neck: trachea midline, no thyromegaly Respiratory: normal respiratory effort, lungs clear to auscultation Cardiovascular: RRR, no murmur, no edema Gastrointestinal (Abdomen): Percussion/Palpation: + abdomen tender (mild, epigastric area) and abdomen soft Skin: no rashes, warm and dry Neurologic: PERRL, EOMI, accommodation nl, no face palsy, no dysarthria Psychiatric: affect dull, but pt awake, alert, oriented Lymphatic: no cervical or axillary lymphadenopathy Results & Data Vital Signs (Past 12 Hours) Vital Signs Temp Pulse Pulse Pulse Resp BP BP 08/27/18 09:00 85 08/27/18 07:35 36.9 C 76 20 179/82 H 08/27/18 04:08 36.8 C 90 18 170/84 H 08/27/18 01:01 89 08/26/18 23:47 37.0 C 92 H 20 154/84 H Pulse Ox 08/27/18 09:00 08/27/18 07:35 94 08/27/18 04:08 92 08/27/18 01:01 08/26/18 23:47 90 Laboratory Results WBC 17, Hb [address] 08/24: 1. Interval cholecystectomy. 2. Placement of common bile duct stent as well as right upper quadrant drain. 3. Complex air and fluid pocket in the gallbladder fossa measuring 4 x 1.5 cm. This may simply represent postoperative change versus developing abscess. 4. Developing pancreatitis. 5.. Pancreatic infiltrative change. No evidence for pancreatic abscess or pseudocyst at this time. 6. Unchanged bibasilar parenchymal atelectatic/infiltrative change.
[2018-08-27] MEDS ORDERED: MoRPHine SULFATE 4 MG/ML 1 ML CARP\\VIAL IV PRN (10:48)
--- NOTE | 2018-08-27 10:59 | Hospitalist Progress Note ---
Date of Service August 27, 2018 Assessment & Plan (1) Sepsis: (2) Acute cholecystitis: Developed sepsis post operatively with WBC upto 32k, Tachycardia, fever spike. Now slight improvement in WBC count- down to 17k, HR improved. D/D considered: Post operative status vs developing abscess per CT scan , ERCP pancreatitis (resolved), pneumonia however no hypoxia, resp symptoms, already on IV Zosyn since sx, MRSA neg. -S/P Laparoscopic Cholecystectomy with necrotizing cholecystitis on 08/20/2018- POD # 7 -S/P ERCP -Biliary leak was found, biliary sphincterectomy performed, stent placed on 08/21/18 - POD # 6 -On 08/23/18 with WBC up to 24k, Tachycardia, Lipase -480 was concerned about ERCP related pancreatitis in setting of ileus ---> Downgraded diet to NPO, IV RL at 100 cc/hour. -On 08/24/18 - continues to have abd pain, tachycardia, WBC up to 32k---> CT scan ordered- Air fluid pocket 4 x 1.5 cm concerning for abscess vs post operative change. Given clinical presentation, probably developing abscess. Developing pancreatitis as well. Added IV Flagyl 500 mg PO TID to IV Zosyn per sx recommendations. Could not tolerate NG tube -Continues to show improvement in WBC, HR, Abd exam, but still has significant abd pain requiring IV Morphine Rx: -Diet advanced to clear liquid today -IV Zosyn - Day 8. IV Flaygl 500 mg TID - Day 3 -Add IV Tylenol 650 mg TID today to minimize IV Morphine PRN use, Oxycodone PRN, IV Zofran PRN -Ordered- Blood cx x 2- Normal , Lactic acid - Normal; MRSA - negative -Work up- 08/24- CT abd pelvis with IV contrast-interval cholecystectomy, CBD stent, drain, complex air-fluid pocket and gallbladder fossa 4 x 1.5 cm. Postoperative change versus developing abscess, developing pancreatitis with no abscess or pseudocyst, atelectatic changes. 08/22- KUB-Mild generalized nonobstructive colonic ileus, postoperative change 08/19 - CT abdomen pelvis shows: Distended gallbladder with pericholecystic inflammatory change,, adjacent hepatic hyperemia, and tiny gas bubbles within the gallbladder lumen. The findings are concerning for acute cholecystitis and clinical correlation in this regard is advocated. If desired a nuclear medicine hepatobiliary study could be obtained in follow-up to assess cystic duct patency. 2. Hepatic steatosis 3. Basilar atelectatic changes -GI signed off -Surgery on board. Discussed case with them (3) Hypokalemia: Secondary to poor p.o. intake, nausea vomiting Resolved Monitor (4) HTN (hypertension): Uncontrolled BP likely secondary to pain Not on any medications outpatient -Started on Lisinopril 10 mg daily on 08/22-----> Increased it to 10 mg BID on 08/23/18--> Increased to 20 mg BID on 08/26/18 -IV Hydralazine PRN for SBP >180 -Pain control (5) History of stroke: -Takes aspirin 325 mg daily, which is kept on hold for post surgery status. To be kept off NSAIDS and Aspirin for 5 days from ERCP procedure -Should be resumed when bleeding risk post cholecystectomy is acceptable per surgery -Will continue to hold till his abdominal pain improves just in case as CT scan had shown developing abscess ? (6) Diabetes: -Type 2 diabetes, on oral meds, metformin kept on hold -Insulin sliding scale -Hemoglobin A1c 6.3 suggestive of well controlled BSG (7) Seizure disorder as sequela of cerebrovascular accident: Last seizure episode approximately 3 years back -On Keppra CODE STATUS discussed with patient and family, willing for short term intubation/mechanical ventilation for surgery DVT prophylaxis: SCD and TEDs due to post surgery status Disposition: To be determined PT OT on board Discontinue Foleys Catheter today Updated daughter and by bedside yesterday Subjective Objective parameters- WBC, HR, abdominal exam/bloating -improving, but he contin ues to feel the same- still has significant abdominal pain requiring IV morphine. Does have some nausea Started on clear liquids. Had few liquid bowel movements No fever spikes or chills. Heart rate in 90s Physical Exam Physical Exam: GENERAL- AAOX3, fatigue LUNGS- Air entry bilaterally equal. No rales, rhonchi, crackles, wheezes heard. HEART- Regular rate and rhythm. No murmurs ABDOMEN- Soft, Improvement in distension and tenderness. S/P Lap carlotta dressing present, CARA drain with drainage--serosanguineous discharge improving EXTREMITIES- Good peripheral pulses, no edema - Foleys catheter in situ Results & Data Vital Signs (Past 12 Hours) Vital Signs Temp Pulse Pulse Pulse Resp BP BP 08/27/18 09:00 85 08/27/18 07:35 36.9 C 76 20 179/82 H 08/27/18 04:08 36.8 C 90 18 170/84 H 08/27/18 01:01 89 08/26/18 23:47 37.0 C 92 H 20 154/84 H Pulse Ox 08/27/18 09:00 08/27/18 07:35 94 08/27/18 04:08 92 08/27/18 01:01 08/26/18 23:47 90 (1) Diabetes Diabetes mellitus type: type 2 Diabetes mellitus mcfp insulin use: without computer terminal operator use Diabetes mellitus complication status: with unspecified complications Qualified Code(s): E11.8 - Type 2 diabetes mellitus with unspecified complications
[2018-08-27] MEDS: ACETAMINOPHEN 65 ML IV SCH ×2 (11:33→20:41)
[2018-08-28] MEDS: PIPERACILLIN/TAZOBACTAM 3.375 GM in DEXTROSE 5% 100 ML IV SCH ×3 (03:28→20:25)
[2018-08-28] MEDS: ACETAMINOPHEN 65 ML IV SCH ×3 (03:28→21:27)
[2018-08-28] MEDS: metroNIDAZOLE 500 MG/100 ML BAG IV SCH ×3 (05:17→22:08)
[2018-08-28 06:08] LABS: Hematocrit (blood only) 35.6 % (42-52); Hemoglobin 12.7 g/dL (14.0-18.0); Mean Corpuscular Hgb Conc 35.7 g/dL (32-36); Mean Corpuscular Volume 88.3 fL (80-100); Mean Platelet Volume 9.6 fL (7.4-10.4); Platelet Count 467 K/uL (130-400); RDW Standard Deviation 42.2 fL (36.4-46.3); Red Blood Count 4.03 M/uL (4.7-6.1); White Blood Count 17.38 K/uL (4.8-10.8)
[2018-08-28 06:38] LABS: BUN Creatinine Ratio 6.6 (10-20); Calcium 8.5 mg/dl (8.5-10.1); Creatinine Clr Calc Pharmacy 86.7 ml/min; Est GFR (African American) 105.1; Est GFR (Non-African American) 90.7; Magnesium 1.7 mg/dl (1.8-2.4)
[2018-08-28 06:39] LABS: Phosphorus 2.5 mg/dl (2.5-4.9)
--- NOTE | 2018-08-28 06:44 | Surgery Progress Note ---
Date of Service August 28, 2018 Assessment & Plan (1) Acute cholecystitis: Postoperative day #8, status post laparoscopic cholecystectomy for gangrenous cholecystitis WBC unchanged Still with some abdominal discomfort but no evidence of peritonitis Having multiple liquid bowel movements, will order C. difficile Can advance to full liquid diet Increase ambulation Subjective Postoperative day #8, status post laparoscopic cholecystectomy for gangrenous cholecystitis Still having mild abdominal discomfort Only mild occasional nausea, no vomiting Having multiple liquid bowel movements without melena Physical Exam Gastrointestinal (Abdomen): Inspection/Auscultation: + abdominal surgical incision (Clean, dry and intact); abdomen not distended Percussion/Palpation: + abdomen tender (Mild diffuse) and abdomen soft Results & Data Vital Signs (Past 12 Hours) Vital Signs Temp Pulse Pulse Pulse Resp BP BP 08/28/18 04:00 36.8 C 82 18 182/86 H 08/28/18 00:06 86 08/27/18 23:00 36.7 C 78 17 175/86 H 08/27/18 20:30 37.0 C 88 20 183/87 H Pulse Ox 08/28/18 04:00 93 08/28/18 00:06 08/27/18 23:00 93 08/27/18 20:30 92 Laboratory Results 08/28/18 08/28/18 08/27/18 Range/Units 05:50 05:50 20:51 WBC 17.38 H (4.8-10.8) K/uL RBC 4.03 L (4.7-6.1) M/uL Hgb 12.7 L (14.0-18.0) g/dL Hct 35.6 L (42-52) % MCV 88.3 (80-100) fL MCH 31.5 (25-34) pg MCHC 35.7 (32-36) g/dL RDW Std Deviation 42.2 (36.4-46.3) fL RDW Coeff of Araceli 13.0 (11.5-14.5) % Plt Count 467 H (130-400) K/uL MPV 9.6 (7.4-10.4) fL Sodium 139 (136-145) mmol/L Potassium 4.0 (3.5-5.1) mmol/L Chloride 104 (98-107) mmol/L Carbon Dioxide 26 (21-32) mmol/L Anion Gap 8.0 (3-11) BUN 5 L (7-18) mg/dl Creatinine 0.77 (0.6-1.4) mg/dl Est Cr Clr Drug Dosing 86.7 ml/min Est GFR ( Amer) 105.1 Est GFR (Non-Af Amer) 90.7 BUN/Creatinine Ratio 6.6 L (10-20) Glucose 230 H (70-99) mg/dl POC Glucose 199 H (70-99) Calcium 8.5 (8.5-10.1) mg/dl Phosphorus 2.5 (2.5-4.9) mg/dl Magnesium 1.7 L (1.8-2.4) mg/dl 08/27/18 08/27/18 08/27/18 Range/Units 16:31 11:56 07:47 WBC (4.8-10.8) K/uL RBC (4.7-6.1) M/uL Hgb (14.0-18.0) g/dL Hct (42-52) % MCV (80-100) fL MCH (25-34) pg MCHC (32-36) g/dL RDW Std Deviation (36.4-46.3) fL RDW Coeff of Araceli (11.5-14.5) % Plt Count (130-400) K/uL MPV (7.4-10.4) fL Sodium (136-145) mmol/L Potassium (3.5-5.1) mmol/L Chloride (98-107) mmol/L Carbon Dioxide (21-32) mmol/L Anion Gap (3-11) BUN (7-18) mg/dl Creatinine (0.6-1.4) mg/dl Est Cr Clr Drug Dosing ml/min Est GFR ( Amer) Est GFR (Non-Af Amer) BUN/Creatinine Ratio (10-20) Glucose (70-99) mg/dl POC Glucose 186 H 172 H 232 H (70-99) Calcium (8.5-10.1) mg/dl Phosphorus (2.5-4.9) mg/dl Magnesium (1.8-2.4) mg/dl
[2018-08-28] MEDS: DOCUSATE SODIUM SYRUP 100 MG/10 ML UDC PO SCH ×2 (07:31→20:22)
[2018-08-28] MEDS: POLYETHYLENE (MIRALAX) 17 GM PACK PO SCH (07:32)
[2018-08-28] MEDS: D5W AND 1/2NSS + 40MEQ KCL 40 MEQ/1,000 ML BAG IV SCH ×2 (08:20→21:28)
[2018-08-28] MEDS: LISINOPRIL 20 MG TAB PO SCH ×2 (08:20→21:56)
[2018-08-28] MEDS: INSULIN ASPART 100 UNITS/ML 3 ML PEN SC SCH ×4 (08:21→21:55)
[2018-08-28] MEDS: levETIRAcetam ORAL SOLN 100MG/ML PO SCH ×2 (08:21→21:56)
--- NOTE | 2018-08-28 17:32 | Hospitalist Progress Note ---
Date of Service August 28, 2018 Assessment & Plan (1) Sepsis: Secondary to gangrenous/necrotic cholecystitis (2) Acute cholecystitis: -S/P Laparoscopic Cholecystectomy with necrotizing cholecystitis on 08/20/2018- POD # 8 Developed sepsis post operatively with WBC upto 32k, Tachycardia, fever spike- secondary to postop complication/biliary leak -S/P ERCP -Biliary leak was found, biliary sphincterectomy performed, stent placed on 08/21/18 - POD # 7 leukocytosis improved to 17 K -On 08/23/18 with WBC up to 24k, Tachycardia, Lipase -480 was concerned about ERCP related pancreatitis in setting of ileus ---> Downgraded diet to NPO, IV RL at 100 cc/hour. -On 08/24/18 - continues to have abd pain, tachycardia, WBC up to 32k---> CT scan ordered- Air fluid pocket 4 x 1.5 cm concerning for abscess vs post operative change. Given clinical presentation, probably developing abscess. : -Diet advanced to clears-having abdominal pain, after clears, ordered for n.p.o. with sips of water and ice chips for bowel rest -IV Zosyn - Day 9. IV Flaygl 500 mg TID - Day 4 -Add IV Tylenol 650 mg TID today to minimize IV Morphine PRN use, Oxycodone PRN, IV Zofran PRN - Blood cx x 2- Normal , Lactic acid - Normal; MRSA - negative -Work up- 08/24- CT abd pelvis with IV contrast-interval cholecystectomy, CBD stent, drain, complex air-fluid pocket and gallbladder fossa 4 x 1.5 cm. Postoperative change versus developing abscess, developing pancreatitis with no abscess or pseudocyst, atelectatic changes. 08/22- KUB-Mild generalized nonobstructive colonic ileus, postoperative change 08/19 - CT abdomen pelvis shows: Distended gallbladder with pericholecystic inflammatory change,, adjacent hepatic hyperemia, and tiny gas bubbles within the gallbladder lumen. The findings are concerning for acute cholecystitis and clinical correlation in this regard is advocated. If desired a nuclear medicine hepatobiliary study could be obtained in follow-up to assess cystic duct patency. 2. Hepatic steatosis 3. Basilar atelectatic changes -Per GI, patient will need outpatient ERCP for removal or biliary stent in 4 to 6 weeks Very slow improvement Multiple post procedure complications, Continue bowel rest with ice chips and sips of water, (3) Hypokalemia: Secondary to poor p.o. intake, nausea vomiting Resolved Monitor (4) HTN (hypertension): Uncontrolled BP likely secondary to pain Not on any medications outpatient -Started on Lisinopril 10 mg daily on 08/22-----> Increased it to 10 mg BID on 08/23/18--> Increased to 20 mg BID on 08/26/18 -IV Hydralazine PRN for SBP >180 -Pain control (5) History of stroke: -Takes aspirin 325 mg daily, which is kept on hold for post surgery status. To be kept off NSAIDS and Aspirin for 5 days from ERCP procedure -Should be resumed when bleeding risk post cholecystectomy is acceptable per surgery -Will continue to hold till his abdominal pain improves (6) Diabetes: -Type 2 diabetes, on oral meds, metformin kept on hold -Insulin sliding scale -Hemoglobin A1c 6.3 suggestive of well controlled BSG (7) Seizure disorder as sequela of cerebrovascular accident: Last seizure episode approximately 3 years back -On Keppra (8) Leukocytosis: WBC remains elevated to 17 K Has multiple loose liquid bowel movement, high risk for C. difficile-on long- term antibiotic Order for stool for C. difficile toxin assay Added lactobacillus CODE STATUS discussed with patient and family, willing for short term intubation/mechanical ventilation for surgery DVT prophylaxis: SCD and TEDs due to post surgery status Disposition: Continue to monitor, very slow improvement post surgery PT OT evaluation Patient may need long-term rehab after discharge from hospital Daughter and given update at bedside Subjective Complaint of mid abdominal pain after meals-on liquid diet only No fever or chills No nausea Multiple liquid bowel movement today Physical Exam Constitutional: WD/WN, vitals as above no acute distress Eyes: PERRL, conjunctivae normal, anicteric sclerae ENMT: external ear and nose normal, oropharynx normal Neck: trachea midline, no thyromegaly Respiratory: normal respiratory effort, lungs clear to auscultation Cardiovascular: RRR, no murmur, no edema Gastrointestinal (Abdomen): Inspection/Auscultation: + abdomen abnormal to inspection (s/p laparascopic cholecystectomy , CARA drain persent ) Musculoskeletal: no cyanosis or clubbing, extremities motor strength 5/5 Skin: no rashes, warm and dry Neurologic: PERRL, EOMI, accommodation nl, no face palsy, no dysarthria Psychiatric: A+Ox3, euthymic affect Results & Data Vital Signs (Past 12 Hours) Vital Signs Temp Pulse Pulse Resp BP Pulse Ox 08/28/18 15:42 36.9 C 79 19 177/71 H 94 08/28/18 09:00 74 08/28/18 07:50 36.7 C 81 20 171/89 H 93 (1) Diabetes Diabetes mellitus complication status: with unspecified complications 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
[2018-08-28] MEDS ORDERED: MAGNESIUM SULFATE / D5W 1 GM/100 ML BAG IV ONE (20:30)
[2018-08-28] MEDS ORDERED: IOVERSOL 100ml IV PRN (21:03)
--- NOTE | 2018-08-28 21:21 | CT Scan Report ---
ABDOMEN AND PELVIS CT WITH IV CONTRAST CT DOSE: 512.30 mGy.cm HISTORY: Abnormal CT. Follow-up. eval for intrabominal abscess noted CT 08/24/18 TECHNIQUE: Multiaxial CT images of the abdomen and pelvis were performed following the use of intrave nous contrast. A dose lowering technique was utilized adhering to the principles of ALARA. COMPARISON STUDY: Abdomen and pelvis CT 08/24/2018. FINDINGS: Small bilateral pleural effusions with bilateral lower lobe densities suggestive of atelect asis. This remains unchanged. Bilateral femoral head sclerosis. This could represent developing avasc ular necrosis. This remains unchanged. No fractures within the visualized osseous structures. Mild he patic steatosis. No hepatic or splenic masses. The adrenal glands and kidneys are unremarkable. No hy dronephrosis. The main portal vein is patent. Trace pneumobilia. The common bile duct stent is in goo d position. There is a right upper quadrant percutaneous drainage catheter with the tip terminating a t the cholecystectomy clips. Small amount of fluid and gas at the gallbladder fossa status post carlotta cystectomy. This is similar to the prior study and measures approximately 5 cm in length and up to 1. 5 cm in diameter. There is no surrounding wall to suggest an abscess at this time. Therefore, this fa vors expected postoperative change. A biloma could also have a similar appearance but is also conside red less likely. Mild enhancement the duodenal bulb is likely reactive. There is a 7 mm submucosal li sly at the duodenal bulb. This remains unchanged. Mild inflammatory change at the pancreatic head an d body consistent with acute pancreatitis. This is also unchanged. No significant peripancreatic flui d collections. Focal occlusion of the proximal right common iliac artery, unchanged. There is reconst itution of flow at the bifurcation of the right external and internal iliac arteries. Mildly ectatic abdominal aorta without an aneurysm. Small amount of gas within the bladder likely due to the recent catheterization. Fluid-filled large and small bowel. Colonic diverticulosis. No evidence for divertic ulitis. No bowel wall thickening or obstruction. IMPRESSION: 1. Overall, no significant change compared to the prior study. 2. Status post cholecystectomy. Small amount of fluid and gas at the gallbladder fossa remains unchan ged. This favors expected postoperative change. No surrounding wall at this time to suggest an absces s. A biloma could also have a similar appearance but is considered less likely given the lack of lundy ge. 3. No change in the acute pancreatitis. 4. Small bilateral pleural effusions. 5. Chronic occlusion of the right common iliac artery. 6. Sclerosis of the bilateral femoral heads may represent avascular necrosis. 7. Additional findings as described above. Electronically signed by: Juliano Pulido M.D. 08/28/2018 9:19 PM
[2018-08-29] MEDS: PIPERACILLIN/TAZOBACTAM 3.375 GM in DEXTROSE 5% 100 ML IV SCH ×3 (03:52→21:11)
[2018-08-29] MEDS: ACETAMINOPHEN 65 ML IV SCH ×3 (03:53→20:38)
[2018-08-29] MEDS: metroNIDAZOLE 500 MG/100 ML BAG IV SCH (05:10)
[2018-08-29 06:32] LABS: Basophils # (auto) 0.03 K/uL (0-0.2); Basophils % (auto) 0.2 %; Eosinophils # (auto) 0.36 K/uL (0-0.5); Eosinophils % (auto) 1.9 %; Hematocrit (blood only) 36.5 % (42-52); Hemoglobin 12.6 g/dL (14.0-18.0); Immature Granulocytes # (auto) 0.19 K/uL (0.00-0.02); Lymphocytes # (auto) 1.84 K/uL (1.2-3.4); Lymphocytes % (auto) 9.9 %; Mean Corpuscular Hgb Conc 34.5 g/dL (32-36); Mean Platelet Volume 9.6 fL (7.4-10.4); Neutrophils # (auto) 14.84 K/uL (1.4-6.5); Platelet Count 499 K/uL (130-400); RDW Coefficient of Variation 13.1 % (11.5-14.5); RDW Standard Deviation 42.6 fL (36.4-46.3); White Blood Count 18.56 K/uL (4.8-10.8)
[2018-08-29 07:08] LABS: Alanine Aminotransferase 18 U/L (12-78); Aspartate Aminotransferase 12 U/L (15-37); BUN Creatinine Ratio 5.8 (10-20); Bilirubin Direct < 0.1 mg/dl (0-0.2); Blood Urea Nitrogen 5 mg/dl (7-18); Calcium 8.4 mg/dl (8.5-10.1); Carbon Dioxide 27 mmol/L (21-32); Chloride 103 mmol/L (98-107); Creatinine Clr Calc Pharmacy 81.4 ml/min; Est GFR (African American) 102.4; Est GFR (Non-African American) 88.3; Glucose 218 mg/dl (70-99); Sodium 134 mmol/L (136-145)
[2018-08-29 07:11] LABS: Albumin Globulin Ratio 0.5 (0.9-2); Alkaline Phosphatase 74 U/L (45-117); Bilirubin,Total 0.3 mg/dl (0.2-1); Globulin 3.8 gm/dl (2.5-4.0); Total Protein 5.8 gm/dl (6.4-8.2)
--- NOTE | 2018-08-29 07:31 | Surgery Progress Note ---
Date of Service August 29, 2018 Assessment & Plan (1) Acute cholecystitis: Postoperative day #9 status post laparoscopic cholecystectomy for gangrenous cholecystitis CT scan result is noted, doubt abscess formation Pancreatitis resolving Consider antidiarrheal Would reinstitute diet Continue physical therapy Subjective CARA had 45 cc out yesterday at, there is minimal in the bulb now and it is serosanguineous Having multiple episodes of diarrhea C. difficile was negative twice yesterday Having mild abdominal discomfort but less than yesterday Denies nausea and vomiting Ambulated with physical therapy yesterday Physical Exam Gastrointestinal (Abdomen): Inspection/Auscultation: + abdominal surgical incision (Clean, dry and intact); abdomen not distended Percussion/Palpation: + abdomen tender (Minimal right-sided tenderness) and abdomen soft Results & Data Vital Signs (Past 12 Hours) Vital Signs Temp Pulse Resp BP Pulse Ox 08/29/18 00:00 36.7 C 85 20 144/85 H 93 08/28/18 19:28 36.8 C 82 18 175/81 H 93 Laboratory Results 08/29/18 08/29/18 08/28/18 Range/Units 06:08 06:08 20:28 WBC 18.56 H (4.8-10.8) K/uL RBC 4.10 L (4.7-6.1) M/uL Hgb 12.6 L (14.0-18.0) g/dL Hct 36.5 L (42-52) % MCV 89.0 (80-100) fL MCH 30.7 (25-34) pg MCHC 34.5 (32-36) g/dL RDW Std Deviation 42.6 (36.4-46.3) fL RDW Coeff of Araceli 13.1 (11.5-14.5) % Plt Count 499 H (130-400) K/uL MPV 9.6 (7.4-10.4) fL Immature Gran % (Auto) 1.0 % Neut % (Auto) 80.0 % Lymph % (Auto) 9.9 % [place] % (Auto) 7.0 % Eos % (Auto) 1.9 % Baso % (Auto) 0.2 % Immature Gran # (Auto) 0.19 H (0.00-0.02) K/uL Neut # (Auto) 14.84 H (1.4-6.5) K/uL Lymph # (Auto) 1.84 (1.2-3.4) K/uL [place] # (Auto) 1.30 H (0.11-0.59) K/uL Eos # (Auto) 0.36 (0-0.5) K/uL Baso # (Auto) 0.03 (0-0.2) K/uL Sodium 134 L (136-145) mmol/L Potassium 4.0 (3.5-5.1) mmol/L Chloride 103 (98-107) mmol/L Carbon Dioxide 27 (21-32) mmol/L Anion Gap 4.0 (3-11) BUN 5 L (7-18) mg/dl Creatinine 0.82 (0.6-1.4) mg/dl Est Cr Clr Drug Dosing 81.4 ml/min Est GFR ( Amer) 102.4 Est GFR (Non-Af Amer) 88.3 BUN/Creatinine Ratio 5.8 L (10-20) Glucose 218 H (70-99) mg/dl POC Glucose 175 H (70-99) Lactate (0.4-2.0) mmol/L Calcium 8.4 L (8.5-10.1) mg/dl Total Bilirubin 0.3 (0.2-1) mg/dl Direct Bilirubin < 0.1 (0-0.2) mg/dl AST 12 L (15-37) U/L ALT 18 (12-78) U/L Alkaline Phosphatase 74 (45-117) U/L Total Protein 5.8 L (6.4-8.2) gm/dl Albumin 2.0 L (3.4-5.0) gm/dl Globulin 3.8 (2.5-4.0) gm/dl Albumin/Globulin Ratio 0.5 L (0.9-2) Procalcitonin (0-0.5) ng/ml Stl C. diff Tox B Gene (Neg) 08/28/18 08/28/18 08/28/18 Range/Units 20:13 20:13 19:05 WBC (4.8-10.8) K/uL RBC (4.7-6.1) M/uL Hgb (14.0-18.0) g/dL Hct (42-52) % MCV (80-100) fL MCH (25-34) pg MCHC (32-36) g/dL RDW Std Deviation (36.4-46.3) fL RDW Coeff of Araceli (11.5-14.5) % Plt Count (130-400) K/uL MPV (7.4-10.4) fL Immature Gran % (Auto) % Neut % (Auto) % Lymph % (Auto) % [place] % (Auto) % Eos % (Auto) % Baso % (Auto) % Immature Gran # (Auto) (0.00-0.02) K/uL Neut # (Auto) (1.4-6.5) K/uL Lymph # (Auto) (1.2-3.4) K/uL [place] # (Auto) (0.11-0.59) K/uL Eos # (Auto) (0-0.5) K/uL Baso # (Auto) (0-0.2) K/uL Sodium (136-145) mmol/L Potassium (3.5-5.1) mmol/L Chloride (98-107) mmol/L Carbon Dioxide (21-32) mmol/L Anion Gap (3-11) BUN (7-18) mg/dl Creatinine (0.6-1.4) mg/dl Est Cr Clr Drug Dosing ml/min Est GFR ( Amer) Est GFR (Non-Af Amer) BUN/Creatinine Ratio (10-20) Glucose (70-99) mg/dl POC Glucose (70-99) Lactate 1.0 (0.4-2.0) mmol/L Calcium (8.5-10.1) mg/dl Total Bilirubin (0.2-1) mg/dl Direct Bilirubin (0-0.2) mg/dl AST (15-37) U/L ALT (12-78) U/L Alkaline Phosphatase (45-117) U/L Total Protein (6.4-8.2) gm/dl Albumin (3.4-5.0) gm/dl Globulin (2.5-4.0) gm/dl Albumin/Globulin Ratio (0.9-2) Procalcitonin 0.06 (0-0.5) ng/ml Stl C. diff Tox B Gene Negative Cdiff Gene (Neg) 08/28/18 08/28/18 08/28/18 Range/Units 16:21 07:50 07:37 WBC (4.8-10.8) K/uL RBC (4.7-6.1) M/uL Hgb (14.0-18.0) g/dL Hct (42-52) % MCV (80-100) fL MCH (25-34) pg MCHC (32-36) g/dL RDW Std Deviation (36.4-46.3) fL RDW Coeff of Araceli (11.5-14.5) % Plt Count (130-400) K/uL MPV (7.4-10.4) fL Immature Gran % (Auto) % Neut % (Auto) % Lymph % (Auto) % [place] % (Auto) % Eos % (Auto) % Baso % (Auto) % Immature Gran # (Auto) (0.00-0.02) K/uL Neut # (Auto) (1.4-6.5) K/uL Lymph # (Auto) (1.2-3.4) K/uL [place] # (Auto) (0.11-0.59) K/uL Eos # (Auto) (0-0.5) K/uL Baso # (Auto) (0-0.2) K/uL Sodium (136-145) mmol/L Potassium (3.5-5.1) mmol/L Chloride (98-107) mmol/L Carbon Dioxide (21-32) mmol/L Anion Gap (3-11) BUN (7-18) mg/dl Creatinine (0.6-1.4) mg/dl Est Cr Clr Drug Dosing ml/min Est GFR ( Amer) Est GFR (Non-Af Amer) BUN/Creatinine Ratio (10-20) Glucose (70-99) mg/dl POC Glucose 193 H 242 H (70-99) Lactate (0.4-2.0) mmol/L Calcium (8.5-10.1) mg/dl Total Bilirubin (0.2-1) mg/dl Direct Bilirubin (0-0.2) mg/dl AST (15-37) U/L ALT (12-78) U/L Alkaline Phosphatase (45-117) U/L Total Protein (6.4-8.2) gm/dl Albumin (3.4-5.0) gm/dl Globulin (2.5-4.0) gm/dl Albumin/Globulin Ratio (0.9-2) Procalcitonin (0-0.5) ng/ml Stl C. diff Tox B Gene Negative Cdiff Gene (Neg) ABDOMEN AND PELVIS CT WITH IV CONTRAST CT DOSE: 512.30 mGy.cm HISTORY: Abnormal CT. Follow-up. eval for intrabominal abscess noted CT 08/24/18 TECHNIQUE: Multiaxial CT images of the abdomen and pelvis were performed following the use of intravenous contrast. A dose lowering technique was utilized adhering to the principles of ALARA. COMPARISON STUDY: Abdomen and pelvis CT 08/24/2018. FINDINGS: Small bilateral pleural effusions with bilateral lower lobe densities suggestive of atelectasis. This remains unchanged. Bilateral femoral head sclerosis. This could represent developing avascular necrosis. This remains unchanged. No fractures within the visualized osseous structures. Mild hepatic steatosis. No hepatic or splenic masses. The adrenal glands and kidneys are unremarkable. No hydronephrosis. The main portal vein is patent. Trace pneumobilia. The common bile duct stent is in good position. There is a right upper quadrant percutaneous drainage catheter with the tip terminating at the cholecystectomy clips. Small amount of fluid and gas at the gallbladder fossa status post cholecystectomy. This is similar to the prior study and measures approximately 5 cm in length and up to 1.5 cm in diameter. There is no surrounding wall to suggest an abscess at this time. Therefore, this favors expected postoperative change. A biloma could also have a similar appearance but is also considered less likely. Mild enhancement the duodenal bulb is likely reactive. There is a 7 mm submucosal lipoma at the duodenal bulb. This remains unchanged. Mild inflammatory change at the pancreatic head and body consistent with acute pancreatitis. This is also unchanged. No significant peripancreatic fluid collections. Focal occlusion of the proximal right common iliac artery, unchanged. There is reconstitution of flow at the bifurcation of the right external and internal iliac arteries. Mildly ectatic abdominal aorta without an aneurysm. Small amount of gas within the bladder likely due to the recent catheterization. Fluid-filled large and small bowel. Colonic diverticulosis. No evidence for diverticulitis. No bowel wall thickening or obstruction. IMPRESSION: 1. Overall, no significant change compared to the prior study. 2. Status post cholecystectomy. Small amount of fluid and gas at the gallbladder fossa remains unchanged. This favors expected postoperative change. No surrounding wall at this time to suggest an abscess. A biloma could also have a similar appearance but is considered less likely given the lack of change. 3. No change in the acute pancreatitis. 4. Small bilateral pleural effusions. 5. Chronic occlusion of the right common iliac artery. 6. Sclerosis of the bilateral femoral heads may represent avascular necrosis. 7. Additional findings as described above.
[2018-08-29] MEDS: DOCUSATE SODIUM SYRUP 100 MG/10 ML UDC PO SCH (07:32)
[2018-08-29] MEDS: LISINOPRIL 20 MG TAB PO SCH ×2 (07:32→20:49)
[2018-08-29] MEDS: POLYETHYLENE (MIRALAX) 17 GM PACK PO SCH (07:32)
[2018-08-29] MEDS: levETIRAcetam ORAL SOLN 100MG/ML PO SCH ×2 (07:33→20:48)
[2018-08-29] MEDS: INSULIN ASPART 100 UNITS/ML 3 ML PEN SC SCH ×4 (08:57→20:48)
[2018-08-29] MEDS: D5W AND 1/2NSS + 40MEQ KCL 40 MEQ/1,000 ML BAG IV SCH (11:23)
[2018-08-29] MEDS ORDERED: LOPERAMIDE HCL 2 MG CAP PO PRN (11:33)
--- NOTE | 2018-08-29 12:29 | Hospitalist Progress Note ---
Date of Service August 29, 2018 Assessment & Plan (1) Sepsis: Secondary to gangrenous/necrotic cholecystitis Status post laparoscopic cholecystectomy postoperative day 9 Developed postoperative complication with biliary leakage, status post ERCP with biliary stent placed Very slow recovery CT abdomen pelvis with IV contrast done on 08/24/2018: Showed complex air-fluid pocket in the gallbladder. Measuring 4x 1.5 cm. This may simply represent postoperative change versus developing abscess Interval cholecystectomy Placement of common bile duct stent as well as of right upper quadrant drain. Developing pancreatitis. Pancreatic infiltrative change. No evidence of pancreatic abscess or pseudocyst at this time Repeat CT abdomen pelvis with IV contrast on 08/28/2018: 1. Overall no significant change compared to the prior study. 2. Status post cholecystectomy. Small amount of gas at the hospital concern remains unchanged. This favors expected postoperative change. No surrounding wall edema suggestive of abscess 3. No change in acute pancreatitis Surgery following closely (2) Acute cholecystitis: -S/P Laparoscopic Cholecystectomy with necrotizing cholecystitis on 08/20/2018- POD # 9 Developed sepsis post operatively with WBC upto 32k, Tachycardia, fever spike- secondary to postop complication/biliary leak -S/P ERCP -Biliary leak was found, biliary sphincterectomy performed, stent placed on 08/21/18 - POD # 8 leukocytosis continues to improve 1714k Continue on IV Zosyn -On 08/23/18 with WBC up to 24k, Tachycardia, Lipase -480 was concerned about ERCP related pancreatitis in setting of ileus ---> Downgraded diet to NPO, IV RL at 100 cc/hour. -On 08/24/18 - continues to have abd pain, tachycardia, WBC up to 32k---> CT scan ordered- Air fluid pocket 4 x 1.5 cm concerning for abscess vs post operative change. Given clinical presentation, probably developing abscess. - Blood cx x 2- Normal , Lactic acid - Normal; MRSA - negative -Work up- 08/24- CT abd pelvis with IV contrast-interval cholecystectomy, CBD stent, drain, complex air-fluid pocket and gallbladder fossa 4 x 1.5 cm. Postoperative change versus developing abscess, developing pancreatitis with no abscess or pseudocyst, atelectatic changes. 08/22- KUB-Mild generalized nonobstructive colonic ileus, postoperative change 08/19 - CT abdomen pelvis shows: Distended gallbladder with pericholecystic inflammatory change,, adjacent hepatic hyperemia, and tiny gas bubbles within the gallbladder lumen. The findings are concerning for acute cholecystitis and clinical correlation in this regard is advocated. If desired a nuclear medicine hepatobiliary study could be obtained in follow-up to assess cystic duct patency. 2. Hepatic steatosis 3. Basilar atelectatic changes -Per GI, patient will need outpatient ERCP for removal or biliary stent in 4 to 6 weeks Very slow improvement Multiple post procedure complications, Repeat CT abdomen pelvis as outlined above, or surgery, patient is Stable to advance diet to full liquid, continue to monitor (3) Hypokalemia: Secondary to poor p.o. intake, nausea vomiting Resolved-diet advanced to full liquid Monitor (4) HTN (hypertension): BP remains stable -Started on Lisinopril 10 mg daily on 08/22-----> Increased it to 10 mg BID on 08/23/18--> Increased to 20 mg BID on 08/26/18 -IV Hydralazine PRN for SBP >180 -Pain control (5) History of stroke: -Takes aspirin 325 mg daily, which is kept on hold for post surgery status. To be kept off NSAIDS and Aspirin for 5 days from ERCP procedure -Should be resumed when bleeding risk post cholecystectomy is acceptable per surgery -Will continue to hold till his abdominal pain improves (6) Diabetes: -Type 2 diabetes, on oral meds, metformin kept on hold -Insulin sliding scale -Hemoglobin A1c 6.3 suggestive of well controlled BSG (7) Seizure disorder as sequela of cerebrovascular accident: Last seizure episode approximately 3 years back/2016 -On Keppra (8) Leukocytosis: WBC improved to 14 K Has multiple loose liquid bowel movement, high risk for C. difficile-on long- term antibiotic stool for C. difficile toxin assay-negative On stool softeners/laxative discontinued, ordered PRN Imodium Added lactobacillus CODE STATUS discussed with patient and family, willing for short term intubation/mechanical ventilation for surgery DVT prophylaxis: SCD and TEDs due to post surgery status Disposition: Continue inpatient care, very slow improvement post surgery Possible staying in the hospital over the weekend PT OT evaluation Patient may need long-term rehab after discharge from hospital-referral made to [facility] is following for discharge planning Subjective Abdominal pain has improved today, patient states that he feels better as long as he is not Doing any movements, less loose bowel movement- 2 episodes No fever chills, CT abdomen pelvis done yesterday showed no acute change, Diet advanced by full liquid by surgery team this morning, tolerating well Physical Exam Constitutional: WD/WN, vitals as above no acute distress Eyes: PERRL, conjunctivae normal, anicteric sclerae ENMT: external ear and nose normal, oropharynx normal Neck: trachea midline, no thyromegaly Respiratory: normal respiratory effort, lungs clear to auscultation Cardiovascular: RRR, no murmur, no edema Gastrointestinal (Abdomen): Inspection/Auscultation: + abdomen abnormal to inspection (s/p laparascopic cholecystectomy , CARA drain persent ) Musculoskeletal: no cyanosis or clubbing, extremities motor strength 5/5 Skin: no rashes, warm and dry Neurologic: PERRL, EOMI, accommodation nl, no face palsy, no dysarthria Psychiatric: A+Ox3, euthymic affect Results & Data Vital Signs (Past 12 Hours) Vital Signs Temp Pulse Resp BP Pulse Ox 08/29/18 07:57 36.7 C 78 20 182/79 H 93 (1) Diabetes Diabetes mellitus complication status: with unspecified complications 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
[2018-08-29 22:01] LABS: Appearance Urine Clear (Clear); Bilirubin Urine Negative (Negative); Blood Urine Negative (Negative); Color Urine Yellow; Glucose Urine UA Negative (Negative); Ketones Urine Negative (Negative); Leukocyte Esterase Urine Negative (Negative); Nitrite Urine Negative (Negative); Protein Urine Negative (Negative); Specific Gravity Urine 1.014 (1.000-1.030); Urobilinogen Urine Negative (Negative); pH Urine 5.5 (4.5-7.5)
[2018-08-30] MEDS: ACETAMINOPHEN 65 ML IV SCH ×3 (03:21→20:00)
[2018-08-30] MEDS: PIPERACILLIN/TAZOBACTAM 3.375 GM in DEXTROSE 5% 100 ML IV SCH ×3 (03:30→20:00)
[2018-08-30 06:31] LABS: Basophils # (auto) 0.05 K/uL (0-0.2); Basophils % (auto) 0.3 %; Eosinophils # (auto) 0.35 K/uL (0-0.5); Eosinophils % (auto) 2.2 %; Hematocrit (blood only) 38.2 % (42-52); Hemoglobin 13.3 g/dL (14.0-18.0); Immature Granulocytes # (auto) 0.23 K/uL (0.00-0.02); Immature Granulocytes % (auto) 1.5 %; Lymphocytes # (auto) 2.31 K/uL (1.2-3.4); Lymphocytes % (auto) 14.7 %; Mean Corpuscular Hgb Conc 34.8 g/dL (32-36); Mean Corpuscular Volume 89.9 fL (80-100); Mean Platelet Volume 9.6 fL (7.4-10.4); Monocytes # (auto) 1.38 K/uL (0.11-0.59); Monocytes % (auto) 8.8 %; Neutrophils # (auto) 11.35 K/uL (1.4-6.5); Neutrophils % (auto) 72.5 %; Platelet Count 535 K/uL (130-400); RDW Coefficient of Variation 13.3 % (11.5-14.5); Red Blood Count 4.25 M/uL (4.7-6.1); White Blood Count 15.67 K/uL (4.8-10.8)
[2018-08-30 07:03] LABS: Alanine Aminotransferase 18 U/L (12-78); Albumin Level 2.2 gm/dl (3.4-5.0); Aspartate Aminotransferase 14 U/L (15-37); BUN Creatinine Ratio 8.5 (10-20); Bilirubin Direct < 0.1 mg/dl (0-0.2); Blood Urea Nitrogen 7 mg/dl (7-18); Calcium 8.8 mg/dl (8.5-10.1); Carbon Dioxide 25 mmol/L (21-32); Chloride 104 mmol/L (98-107); Creatinine Clr Calc Pharmacy 80.4 ml/min; Est GFR (African American) 101.9; Est GFR (Non-African American) 87.9; Glucose 170 mg/dl (70-99); Potassium 3.8 mmol/L (3.5-5.1); Sodium 138 mmol/L (136-145)
[2018-08-30 07:06] LABS: Albumin Globulin Ratio 0.6 (0.9-2); Alkaline Phosphatase 68 U/L (45-117); Bilirubin,Total 0.3 mg/dl (0.2-1); Globulin 3.7 gm/dl (2.5-4.0); Total Protein 5.9 gm/dl (6.4-8.2)
--- NOTE | 2018-08-30 07:38 | Surgery Progress Note ---
Date of Service August 30, 2018 Assessment & Plan (1) Acute cholecystitis: Postoperative day #10 status post laparoscopic cholecystectomy for gangrenous cholecystitis Status post ERCP for cystic duct leak CARA drainage has continued to decrease and appears serosanguineous White blood cell count has decreased towards normal again yesterday Tolerating a diet and can advance to a soft diet Diarrhea seems to be under better control Continue ambulation Subjective Postoperative day #10 status post laparoscopic cholecystectomy for gangrenous cholecystitis Tavo-Cleaning has less than 40 cc/day and it serosanguineous Feels "pretty good" today Had some abdominal pain earlier this morning but now resolved Continues to have bowel movements although less in number Tolerated full liquid diet yesterday although did not eat a lot Continues to tolerate physical therapy Physical Exam Gastrointestinal (Abdomen): Inspection/Auscultation: abdomen not distended Percussion/Palpation: abdomen soft; abdomen nontender Results & Data Vital Signs (Past 12 Hours) Vital Signs Temp Pulse Resp BP BP Pulse Ox 08/30/18 07:25 36.6 C 86 18 150/81 H 94 08/30/18 04:00 36.7 C 83 20 157/82 H 93 08/29/18 23:33 36.3 C L 89 22 183/79 H 94 08/29/18 20:00 36.7 C 78 20 157/84 H 95 Laboratory Results 08/30/18 08/30/18 08/29/18 Range/Units 06:05 06:05 20:50 WBC 15.67 H (4.8-10.8) K/uL RBC 4.25 L (4.7-6.1) M/uL Hgb 13.3 L (14.0-18.0) g/dL Hct 38.2 L (42-52) % MCV 89.9 (80-100) fL MCH 31.3 (25-34) pg MCHC 34.8 (32-36) g/dL RDW Std Deviation 44.0 (36.4-46.3) fL RDW Coeff of Araceli 13.3 (11.5-14.5) % Plt Count 535 H (130-400) K/uL MPV 9.6 (7.4-10.4) fL Immature Gran % (Auto) 1.5 % Neut % (Auto) 72.5 % Lymph % (Auto) 14.7 % [place] % (Auto) 8.8 % Eos % (Auto) 2.2 % Baso % (Auto) 0.3 % Immature Gran # (Auto) 0.23 H (0.00-0.02) K/uL Neut # (Auto) 11.35 H (1.4-6.5) K/uL Lymph # (Auto) 2.31 (1.2-3.4) K/uL [place] # (Auto) 1.38 H (0.11-0.59) K/uL Eos # (Auto) 0.35 (0-0.5) K/uL Baso # (Auto) 0.05 (0-0.2) K/uL Sodium 138 (136-145) mmol/L Potassium 3.8 (3.5-5.1) mmol/L Chloride 104 (98-107) mmol/L Carbon Dioxide 25 (21-32) mmol/L Anion Gap 9.0 (3-11) BUN 7 (7-18) mg/dl Creatinine 0.83 (0.6-1.4) mg/dl Est Cr Clr Drug Dosing 80.4 ml/min Est GFR ( Amer) 101.9 Est GFR (Non-Af Amer) 87.9 BUN/Creatinine Ratio 8.5 L (10-20) Glucose 170 H (70-99) mg/dl POC Glucose (70-99) Calcium 8.8 (8.5-10.1) mg/dl Total Bilirubin 0.3 (0.2-1) mg/dl Direct Bilirubin < 0.1 (0-0.2) mg/dl AST 14 L (15-37) U/L ALT 18 (12-78) U/L Alkaline Phosphatase 68 (45-117) U/L Total Protein 5.9 L (6.4-8.2) gm/dl Albumin 2.2 L (3.4-5.0) gm/dl Globulin 3.7 (2.5-4.0) gm/dl Albumin/Globulin Ratio 0.6 L (0.9-2) Urine Color Yellow Urine Appearance Clear (Clear) Urine pH 5.5 (4.5-7.5) Ur Specific [place] 1.014 (1.000-1.030) Urine Protein Negative (Negative) Urine Glucose (UA) Negative (Negative) Urine Ketones Negative (Negative) Urine Blood Negative (Negative) Urine Nitrite Negative (Negative) Urine Bilirubin Negative (Negative) Urine Urobilinogen Negative (Negative) Ur Leukocyte Esterase Negative (Negative) 08/29/18 08/29/18 08/29/18 Range/Units 20:45 16:24 11:37 WBC (4.8-10.8) K/uL RBC (4.7-6.1) M/uL Hgb (14.0-18.0) g/dL Hct (42-52) % MCV (80-100) fL MCH (25-34) pg MCHC (32-36) g/dL RDW Std Deviation (36.4-46.3) fL RDW Coeff of Araceli (11.5-14.5) % Plt Count (130-400) K/uL MPV (7.4-10.4) fL Immature Gran % (Auto) % Neut % (Auto) % Lymph % (Auto) % [place] % (Auto) % Eos % (Auto) % Baso % (Auto) % Immature Gran # (Auto) (0.00-0.02) K/uL Neut # (Auto) (1.4-6.5) K/uL Lymph # (Auto) (1.2-3.4) K/uL [place] # (Auto) (0.11-0.59) K/uL Eos # (Auto) (0-0.5) K/uL Baso # (Auto) (0-0.2) K/uL Sodium (136-145) mmol/L Potassium (3.5-5.1) mmol/L Chloride (98-107) mmol/L Carbon Dioxide (21-32) mmol/L Anion Gap (3-11) BUN (7-18) mg/dl Creatinine (0.6-1.4) mg/dl Est Cr Clr Drug Dosing ml/min Est GFR ( Amer) Est GFR (Non-Af Amer) BUN/Creatinine Ratio (10-20) Glucose (70-99) mg/dl POC Glucose 143 H 155 H 203 H (70-99) Calcium (8.5-10.1) mg/dl Total Bilirubin (0.2-1) mg/dl Direct Bilirubin (0-0.2) mg/dl AST (15-37) U/L ALT (12-78) U/L Alkaline Phosphatase (45-117) U/L Total Protein (6.4-8.2) gm/dl Albumin (3.4-5.0) gm/dl Globulin (2.5-4.0) gm/dl Albumin/Globulin Ratio (0.9-2) Urine Color Urine Appearance (Clear) Urine pH (4.5-7.5) Ur Specific [place] (1.000-1.030) Urine Protein (Negative) Urine Glucose (UA) (Negative) Urine Ketones (Negative) Urine Blood (Negative) Urine Nitrite (Negative) Urine Bilirubin (Negative) Urine Urobilinogen (Negative) Ur Leukocyte Esterase (Negative) 08/29/18 Range/Units 07:47 WBC (4.8-10.8) K/uL RBC (4.7-6.1) M/uL Hgb (14.0-18.0) g/dL Hct (42-52) % MCV (80-100) fL MCH (25-34) pg MCHC (32-36) g/dL RDW Std Deviation (36.4-46.3) fL RDW Coeff of Araceli (11.5-14.5) % Plt Count (130-400) K/uL MPV (7.4-10.4) fL Immature Gran % (Auto) % Neut % (Auto) % Lymph % (Auto) % [place] % (Auto) % Eos % (Auto) % Baso % (Auto) % Immature Gran # (Auto) (0.00-0.02) K/uL Neut # (Auto) (1.4-6.5) K/uL Lymph # (Auto) (1.2-3.4) K/uL [place] # (Auto) (0.11-0.59) K/uL Eos # (Auto) (0-0.5) K/uL Baso # (Auto) (0-0.2) K/uL Sodium (136-145) mmol/L Potassium (3.5-5.1) mmol/L Chloride (98-107) mmol/L Carbon Dioxide (21-32) mmol/L Anion Gap (3-11) BUN (7-18) mg/dl Creatinine (0.6-1.4) mg/dl Est Cr Clr Drug Dosing ml/min Est GFR ( Amer) Est GFR (Non-Af Amer) BUN/Creatinine Ratio (10-20) Glucose (70-99) mg/dl POC Glucose 214 H (70-99) Calcium (8.5-10.1) mg/dl Total Bilirubin (0.2-1) mg/dl Direct Bilirubin (0-0.2) mg/dl AST (15-37) U/L ALT (12-78) U/L Alkaline Phosphatase (45-117) U/L Total Protein (6.4-8.2) gm/dl Albumin (3.4-5.0) gm/dl Globulin (2.5-4.0) gm/dl Albumin/Globulin Ratio (0.9-2) Urine Color Urine Appearance (Clear) Urine pH (4.5-7.5) Ur Specific [place] (1.000-1.030) Urine Protein (Negative) Urine Glucose (UA) (Negative) Urine Ketones (Negative) Urine Blood (Negative) Urine Nitrite (Negative) Urine Bilirubin (Negative) Urine Urobilinogen (Negative) Ur Leukocyte Esterase (Negative)
[2018-08-30] MEDS: levETIRAcetam ORAL SOLN 100MG/ML PO SCH ×2 (08:06→20:28)
[2018-08-30] MEDS: LISINOPRIL 20 MG TAB PO SCH ×2 (08:06→20:29)
[2018-08-30] MEDS: INSULIN ASPART 100 UNITS/ML 3 ML PEN SC SCH ×4 (08:50→20:29)
--- NOTE | 2018-08-30 23:13 | Hospitalist Progress Note ---
Date of Service August 30, 2018 Assessment & Plan (1) Sepsis: Secondary to gangrenous/necrotic cholecystitis Status post laparoscopic cholecystectomy postoperative day 10 Developed postoperative complication with biliary leakage, status post ERCP with biliary stent placed y CT abdomen pelvis with IV contrast done on 08/24/2018: Showed complex air-fluid pocket in the gallbladder. Measuring 4x 1.5 cm. This may simply represent postoperative change versus developing abscess Interval cholecystectomy Placement of common bile duct stent as well as of right upper quadrant drain. Repeat CT abdomen pelvis with IV contrast on 08/28/2018: 1. Overall no significant change compared to the prior study. 2. Status post cholecystectomy. Small amount of gas at the hospital concern remains unchanged. This favors expected postoperative change. No surrounding wall edema suggestive of abscess 3. No change in acute pancreatitis diet advanced slowly Surgery following closely (2) Acute cholecystitis: -S/P Laparoscopic Cholecystectomy with necrotizing cholecystitis on 08/20/2018- POD # 10 Developed sepsis post operatively with WBC upto 32k, Tachycardia, fever spike- secondary to postop complication/biliary leak -S/P ERCP -Biliary leak was found, biliary sphincterectomy performed, stent placed on 08/21/18 - POD # 9 leukocytosis continues to improve Continue on IV Zosyn complete total 14 days tx -On 08/23/18 with WBC up to 24k, Tachycardia, Lipase -480 was concerned about ERCP related pancreatitis in setting of ileus ---> Downgraded diet to NPO, IV RL at 100 cc/hour. -On 08/24/18 - continues to have abd pain, tachycardia, WBC up to 32k---> CT scan ordered- Air fluid pocket 4 x 1.5 cm concerning for abscess vs post operative change. Given clinical presentation, probably developing abscess. - Blood cx x 2- Normal , Lactic acid - Normal; MRSA - negative -Work up- 08/24- CT abd pelvis with IV contrast-interval cholecystectomy, CBD stent, drain, complex air-fluid pocket and gallbladder fossa 4 x 1.5 cm. Postoperative change versus developing abscess, developing pancreatitis with no abscess or pseudocyst, atelectatic changes. 08/22- KUB-Mild generalized nonobstructive colonic ileus, postoperative change 08/19 - CT abdomen pelvis shows: Distended gallbladder with pericholecystic inflammatory change,, adjacent hepatic hyperemia, and tiny gas bubbles within the gallbladder lumen. The findings are concerning for acute cholecystitis and clinical correlation in this regard is advocated. If desired a nuclear medicine hepatobiliary study could be obtained in follow-up to assess cystic duct patency. 2. Hepatic steatosis 3. Basilar atelectatic changes -Per GI, patient will need outpatient ERCP for removal or biliary stent in 4 to 6 weeks Very slow improvement Multiple post procedure complications, Repeat CT abdomen pelvis as outlined above, or surgery, patient is Stable to advance diet to full liquid, continue to monitor (3) Hypokalemia: Secondary to poor p.o. intake, nausea vomiting Resolved-diet advanced (4) HTN (hypertension): BP remains stable -Started on Lisinopril 10 mg daily on 08/22-----> Increased it to 10 mg BID on 08/23/18--> Increased to 20 mg BID on 08/26/18 -IV Hydralazine PRN for SBP >180 -Pain control (5) History of stroke: -Takes aspirin 325 mg daily, which is kept on hold for post surgery status. To be kept off NSAIDS and Aspirin for 5 days from ERCP procedure -Should be resumed when bleeding risk post cholecystectomy is acceptable per surgery -Will continue to hold till his abdominal pain improves (6) Diabetes: -Type 2 diabetes, on oral meds, metformin kept on hold -Insulin sliding scale -Hemoglobin A1c 6.3 suggestive of well controlled BSG (7) Seizure disorder as sequela of cerebrovascular accident: Last seizure episode approximately 3 years back -On Keppra (8) Leukocytosis: WBC improved to 14 K Has multiple loose liquid bowel movement, high risk for C. difficile-on long- term antibiotic stool for C. difficile toxin assay-negative On stool softeners/laxative discontinued, ordered PRN Imodium Added lactobacillus CODE STATUS discussed with patient and family, willing for short term intubation/mechanical ventilation for surgery DVT prophylaxis: SCD and TEDs due to post surgery status Disposition: Continue inpatient care, very slow improvement post surgery Possible staying in the hospital over the weekend PT OT evaluation Patient may need long-term rehab after discharge from hospital-referral made to [facility] is following for discharge planning Subjective feels better experiening intermittent epigastric pain worse after ,eal no nausea diarrea has resolved Physical Exam Constitutional: WD/WN, vitals as above no acute distress Eyes: PERRL, conjunctivae normal, anicteric sclerae ENMT: external ear and nose normal, oropharynx normal Neck: trachea midline, no thyromegaly Respiratory: normal respiratory effort, lungs clear to auscultation Cardiovascular: RRR, no murmur, no edema Gastrointestinal (Abdomen): Inspection/Auscultation: + abdomen abnormal to inspection (s/p laparascopic cholecystectomy , CARA drain persent ) Musculoskeletal: no cyanosis or clubbing, extremities motor strength 5/5 Skin: no rashes, warm and dry Neurologic: PERRL, EOMI, accommodation nl, no face palsy, no dysarthria Psychiatric: A+Ox3, euthymic affect Results & Data Vital Signs (Past 12 Hours) Vital Signs Temp Pulse Resp BP Pulse Ox 08/30/18 20:02 147/72 H 08/30/18 15:58 36.7 C 97 H 18 115/70 92 (1) Diabetes Diabetes mellitus complication status: with unspecified complications Diabetes mellitus terminal clerk insulin use: without fpc use Diabetes mellitus type: type 2 Qualified Code(s): E11.8 - Type 2 diabetes mellitus with unspecified complications
[2018-08-31] MEDS: PIPERACILLIN/TAZOBACTAM 3.375 GM in DEXTROSE 5% 100 ML IV SCH ×3 (04:14→21:02)
[2018-08-31] MEDS: ACETAMINOPHEN 65 ML IV SCH ×3 (04:15→21:03)
[2018-08-31 06:26] LABS: Basophils # (auto) 0.04 K/uL (0-0.2); Basophils % (auto) 0.3 %; Eosinophils # (auto) 0.21 K/uL (0-0.5); Eosinophils % (auto) 1.6 %; Hematocrit (blood only) 38.5 % (42-52); Hemoglobin 12.9 g/dL (14.0-18.0); Immature Granulocytes # (auto) 0.16 K/uL (0.00-0.02); Immature Granulocytes % (auto) 1.2 %; Lymphocytes # (auto) 2.06 K/uL (1.2-3.4); Lymphocytes % (auto) 15.7 %; Mean Corpuscular Hgb Conc 33.5 g/dL (32-36); Mean Corpuscular Volume 90.2 fL (80-100); Monocytes # (auto) 1.32 K/uL (0.11-0.59); Monocytes % (auto) 10.1 %; Neutrophils % (auto) 71.1 %; Platelet Count 550 K/uL (130-400); RDW Coefficient of Variation 13.5 % (11.5-14.5); RDW Standard Deviation 44.6 fL (36.4-46.3); Red Blood Count 4.27 M/uL (4.7-6.1); White Blood Count 13.09 K/uL (4.8-10.8)
[2018-08-31] MEDS: LISINOPRIL 20 MG TAB PO SCH ×2 (07:42→21:37)
[2018-08-31] MEDS: levETIRAcetam ORAL SOLN 100MG/ML PO SCH ×2 (07:43→21:36)
--- NOTE | 2018-08-31 08:37 | Surgery Progress Note ---
Date of Service August 31, 2018 Assessment & Plan (1) Bile leak, postoperative: Drainage slowing WBC normalizing Present on Admission?: Yes (2) Acute cholecystitis: Taking PO OK Ambulate Con't abx Subjective Some epigastric discomfort No fevers Ambulating Drain slowing WBC down to 13 Review of Systems Constitutional: no fever and no chills Cardiovascular: no chest pain and no dyspnea Gastrointestinal: + abdominal pain (consisitent with dyspepsia) and + diarrhea/loose stools; no nausea and no vomiting Musculoskeletal: no back pain Physical Exam Constitutional: WD/WN, vitals as above Respiratory: normal respiratory effort, lungs clear to auscultation Cardiovascular: RRR, no murmur, no edema Gastrointestinal (Abdomen): normal bowel sounds, soft, nontender, no hepatosplenomegaly Drain slowing with only 15cc yesterday, bile tinged Musculoskeletal: Head/Neck/Chest: normocephalic and head atraumatic Skin: no jaundice Results & Data Vital Signs (Past 12 Hours) Vital Signs Temp Pulse Resp BP BP Pulse Ox 08/31/18 07:55 36.8 C 82 21 146/79 H 93 08/30/18 23:54 36.6 C 94 H 20 140/76 93
[2018-08-31] MEDS: INSULIN ASPART 100 UNITS/ML 3 ML PEN SC SCH ×4 (09:18→21:36)
[2018-08-31] MEDS: RANITIDINE HCL SYRUP 150 MG/10 ML UDC PO SCH ×2 (10:25→21:36)
[2018-08-31] MEDS ORDERED: ALUMINUM/MAGNESIUM/SIMETH (MAALOX MAX) 30 ML UDC PO PRN (13:30)
[2018-08-31] MEDS: CALCIUM CARBONATE 500 MG CHEWABLE TAB PO PRN ×2 (17:50→19:38)
--- NOTE | 2018-08-31 18:27 | Hospitalist Progress Note ---
Date of Service August 31, 2018 Assessment & Plan (1) Sepsis: pt is improving clinically Secondary to gangrenous/necrotic cholecystitis Status post laparoscopic cholecystectomy postoperative day 11 Developed postoperative complication with biliary leakage, status post ERCP with biliary stent placed tolerating diet well appreciate input from surgery (2) Acute cholecystitis: -S/P Laparoscopic Cholecystectomy with necrotizing cholecystitis on - POD # 11 Developed sepsis post operatively with WBC upto 32k, Tachycardia, fever spike- secondary to postop complication/biliary leak -S/P ERCP -Biliary leak was found, biliary sphincterectomy performed, stent placed on 08/21/18 - POD # 10 leukocytosis continues to improve 13 k Continue on IV Zosyn complete total 14 days tx - Blood cx x 2- Normal , Lactic acid - Normal; MRSA - negative -Work up- 08/24- CT abd pelvis with IV contrast-interval cholecystectomy, CBD stent, drain, complex air-fluid pocket and gallbladder fossa 4 x 1.5 cm. Postoperative change versus developing abscess, developing pancreatitis with no abscess or pseudocyst, atelectatic changes. 08/22- KUB-Mild generalized nonobstructive colonic ileus, postoperative change 08/19 - CT abdomen pelvis shows: Distended gallbladder with pericholecystic inflammatory change,, adjacent hepatic hyperemia, and tiny gas bubbles within the gallbladder lumen. The findings are concerning for acute cholecystitis and clinical correlation in this regard is advocated. If desired a nuclear medicine hepatobiliary study could be obtained in follow-up to assess cystic duct patency. 2. Hepatic steatosis 3. Basilar atelectatic changes -Per GI, patient will need outpatient ERCP for removal or biliary stent in 4 to 6 weeks Very slow improvement Multiple post procedure complications, Repeat CT abdomen pelvis as outlined above, or surgery, patient is Stable to advance diet to full liquid, continue to monitor (3) Hypokalemia: Secondary to poor p.o. intake, nausea vomiting Resolved-diet advanced (4) HTN (hypertension): BP remains stable -Started on Lisinopril 10 mg daily on 08/22-----> Increased it to 10 mg BID on 08/23/18--> Increased to 20 mg BID on 08/26/18 -IV Hydralazine PRN for SBP >180 -Pain control (5) History of stroke: -Takes aspirin 325 mg daily, which is kept on hold for post surgery status. To be kept off NSAIDS and Aspirin for 5 days from ERCP procedure -Should be resumed when bleeding risk post cholecystectomy is acceptable per s urgery -Will continue to hold till his abdominal pain improves (6) Diabetes: -Type 2 diabetes, on oral meds, metformin kept on hold -Insulin sliding scale -Hemoglobin A1c 6.3 suggestive of well controlled BSG (7) Seizure disorder as sequela of cerebrovascular accident: Last seizure episode approximately 3 years back/2016 -On Keppra (8) Leukocytosis: cont to improve CODE STATUS discussed with patient and family, willing for short term intubation/mechanical ventilation for surgery DVT prophylaxis: SCD and TEDs due to post surgery status Disposition: pt will need rehab -referral made to [facility] is following for discharge planning Subjective no complain of abdominal pain epigastric pain has improved after taking TUMS CARA drain is minimum tolerating diet well no nausea or vomiting Physical Exam Constitutional: WD/WN, vitals as above no acute distress Eyes: PERRL, conjunctivae normal, anicteric sclerae ENMT: external ear and nose normal, oropharynx normal Neck: trachea midline, no thyromegaly Respiratory: normal respiratory effort, lungs clear to auscultation Cardiovascular: RRR, no murmur, no edema Gastrointestinal (Abdomen): Inspection/Auscultation: + abdomen abnormal to inspection (s/p laparascopic cholecystectomy , CARA drain persent ) Musculoskeletal: no cyanosis or clubbing, extremities motor strength 5/5 Skin: no rashes, warm and dry Neurologic: PERRL, EOMI, accommodation nl, no face palsy, no dysarthria Psychiatric: A+Ox3, euthymic affect Results & Data Vital Signs (Past 12 Hours) Vital Signs Temp Pulse Resp BP Pulse Ox 08/31/18 15:13 36.4 C L 83 18 151/74 H 94 08/31/18 07:55 36.8 C 82 21 146/79 H 93 (1) Diabetes Diabetes mellitus complication status: with unspecified complications Diabetes mellitus exterminator helper insulin use: without exterminator helper use Diabetes mellitus type: type 2 Qualified Code(s): E11.8 - Type 2 diabetes mellitus with unspecified complications
[2018-09-01] MEDS: PIPERACILLIN/TAZOBACTAM 3.375 GM in DEXTROSE 5% 100 ML IV SCH ×3 (04:06→19:54)
[2018-09-01] MEDS: ACETAMINOPHEN 65 ML IV SCH ×2 (04:06→11:36)
[2018-09-01 06:34] LABS: Basophils # (auto) 0.04 K/uL (0-0.2); Basophils % (auto) 0.3 %; Eosinophils # (auto) 0.24 K/uL (0-0.5); Eosinophils % (auto) 1.8 %; Hemoglobin 12.6 g/dL (14.0-18.0); Immature Granulocytes # (auto) 0.12 K/uL (0.00-0.02); Immature Granulocytes % (auto) 0.9 %; Lymphocytes # (auto) 2.22 K/uL (1.2-3.4); Lymphocytes % (auto) 16.9 %; Mean Corpuscular Hgb Conc 34.1 g/dL (32-36); Mean Corpuscular Volume 91.1 fL (80-100); Mean Platelet Volume 9.3 fL (7.4-10.4); Monocytes # (auto) 1.31 K/uL (0.11-0.59); Monocytes % (auto) 9.9 %; Neutrophils # (auto) 9.24 K/uL (1.4-6.5); Neutrophils % (auto) 70.2 %; Platelet Count 572 K/uL (130-400); RDW Coefficient of Variation 13.5 % (11.5-14.5); RDW Standard Deviation 44.6 fL (36.4-46.3); Red Blood Count 4.06 M/uL (4.7-6.1); White Blood Count 13.17 K/uL (4.8-10.8)
[2018-09-01 07:05] LABS: Alanine Aminotransferase 22 U/L (12-78); Albumin Level 2.2 gm/dl (3.4-5.0); Aspartate Aminotransferase 18 U/L (15-37); Bilirubin Direct < 0.1 mg/dl (0-0.2); Blood Urea Nitrogen 15 mg/dl (7-18); Calcium 8.8 mg/dl (8.5-10.1); Carbon Dioxide 28 mmol/L (21-32); Chloride 104 mmol/L (98-107); Creatinine Clr Calc Pharmacy 78.6 ml/min; Est GFR (African American) 100.9; Est GFR (Non-African American) 87.1; Glucose 182 mg/dl (70-99); Potassium 3.5 mmol/L (3.5-5.1); Sodium 139 mmol/L (136-145)
[2018-09-01 07:16] LABS: Albumin Globulin Ratio 0.6 (0.9-2); Alkaline Phosphatase 98 U/L (45-117); Bilirubin,Total 0.3 mg/dl (0.2-1); Globulin 3.7 gm/dl (2.5-4.0); Total Protein 5.9 gm/dl (6.4-8.2)
[2018-09-01] MEDS: INSULIN ASPART 100 UNITS/ML 3 ML PEN SC SCH ×4 (08:57→21:03)
[2018-09-01] MEDS: levETIRAcetam ORAL SOLN 100MG/ML PO SCH ×2 (08:57→21:04)
[2018-09-01] MEDS: RANITIDINE HCL SYRUP 150 MG/10 ML UDC PO SCH ×2 (08:57→21:06)
[2018-09-01] MEDS: LISINOPRIL 20 MG TAB PO SCH ×2 (08:58→21:04)
[2018-09-01] MEDS: CALCIUM CARBONATE 500 MG CHEWABLE TAB PO PRN ×4 (09:14→17:58)
--- NOTE | 2018-09-01 09:23 | Surgery Progress Note ---
Date of Service September 01, 2018 Assessment & Plan (1) Bile leak, postoperative: POD#12 lap carlotta with bile leak, drained and s/p ERCP and stent Minimal drainage Continue IV abx Eating OK Needs assistance ambulating and with ADLs Subjective Feeling better, epigastric pain resolving on antacids Taking po OK No Fevers WBC still 13 this AM Drain minimal Review of Systems Constitutional: no fever and no chills Respiratory: no cough and no dyspnea Cardiovascular: no chest pain Gastrointestinal: + abdominal pain (better); no nausea and no vomiting Integumentary: no rash, no pruritus and no change in skin color (no jaundice) Physical Exam Constitutional: no acute distress Neck: trachea midline Respiratory: normal respiratory effort, lungs clear to auscultation Cardiovascular: RRR, no murmur, no edema Gastrointestinal (Abdomen): Inspection/Auscultation: normal bowel sounds; abdomen not distended Percussion/Palpation: + abdomen tender (mild); no guarding Musculoskeletal: Head/Neck/Chest: normocephalic and head atraumatic Skin: no rashes, warm and dry Results & Data Vital Signs (Past 12 Hours) Vital Signs Temp Pulse Pulse Resp BP Pulse Ox 09/01/18 08:15 36.7 C 76 19 126/66 94 08/31/18 23:46 37.0 C 94 H 18 132/70 94 08/31/18 21:35 126/71
--- NOTE | 2018-09-01 12:20 | Hospitalist Progress Note ---
Date of Service September 01, 2018 Assessment & Plan (1) Sepsis: Secondary to gangrenous/necrotic cholecystitis Status post laparoscopic cholecystectomy postoperative day 12 Developed postoperative complication with biliary leakage, status post ERCP with biliary stent placed Clinically much better and a surgical drain is his draining minimal fluid Denies any significant symptoms Tolerating diet well (2) Acute cholecystitis: -S/P Laparoscopic Cholecystectomy with necrotizing cholecystitis on 08/20/2018- POD # 12 Developed sepsis post operatively with WBC upto 32k, Tachycardia, fever spike- secondary to postop complication/biliary leak -S/P ERCP -Biliary leak was found, biliary sphincterectomy performed, stent placed on 08/21/18 - POD # 10 Per GI, patient will need outpatient ERCP for removal or biliary stent in 4 to 6 weeks Continue on IV Zosyn complete total 14 days tx Blood cx x 2- Normal , Lactic acid - Normal; MRSA - negative Clinically better Very slow improvement Multiple post procedure complications, Repeat CT abdomen pelvis as outlined above, or surgery, patient is Stable to advance diet to full liquid, continue to monitor (3) Hypokalemia: Secondary to poor p.o. intake, nausea vomiting Resolved-diet advanced Remains normal (4) HTN (hypertension): BP remains stable -Started on Lisinopril 10 mg daily on 08/22-----> Increased it to 10 mg BID on 08/23/18--> Increased to 20 mg BID on 08/26/18 -IV Hydralazine PRN for SBP >180 -Pain control (5) History of stroke: -Takes aspirin 325 mg daily, which is kept on hold for post surgery status. To be kept off NSAIDS and Aspirin for 5 days from ERCP procedure -Should be resumed when bleeding risk post cholecystectomy is acceptable per surgery -Will continue to hold till his abdominal pain improves (6) Diabetes: -Type 2 diabetes, on oral meds, metformin kept on hold -Insulin sliding scale -Hemoglobin A1c 6.3 suggestive of well controlled BSG (7) Seizure disorder as sequela of cerebrovascular accident: Last seizure episode approximately 3 years back/2016 -On Keppra -No more seizures in the emergency room (8) Leukocytosis: Secondary to acute cholecystitis and complicated by surgery and other procedure Has been on intravenous Zosyn and the white count has been improving CODE STATUS discussed with patient and family, willing for short term intubat ion/mechanical ventilation for surgery DVT prophylaxis: SCD and TEDs due to post surgery status Disposition: pt will need rehab -referral made to [facility] is following for discharge planning Likely discharge to [facility] in a day or 2 Subjective 09/01 The patient was seen and examined in medical telemetry unit This is a 73-year-old male with CVA, seizure disease order after CVA, hypertension, type 2 diabetes on oral meds came to ER 0n 08/19/18 with complaints of intractable abdominal pain nausea vomiting started since Sundaylast He was noted to have acute cholecystitis on admission and now status post lap carlotta POD #12 He has been feeling a lot better for the last day or 2 Tolerating regular diet and denies any symptoms as of today Review of Systems Review of Systems: All systems reviewed and are unremarkable except as noted below Constitutional: + weakness Gastrointestinal: + heartburn and + nausea; no abdominal pain and no vomiting Physical Exam Physical Exam: No apparent distress at rest Constitutional: no acute distress Eyes: PERRL, conjunctivae normal, anicteric sclerae ENMT: external ear and nose normal, oropharynx normal Neck: trachea midline, no thyromegaly Respiratory: normal respiratory effort Auscultation: lungs clear to auscultation bilaterally Cardiovascular: RRR, no murmur, no edema Gastrointestinal (Abdomen): Inspection/Auscultation: + abdomen abnormal to inspection (s/p laparascopic cholecystectomy , CARA drain persent ) Musculoskeletal: no cyanosis or clubbing, extremities motor strength 5/5 Skin: no rashes, warm and dry Neurologic: Has minimal left-sided weakness Psychiatric: A+Ox3, euthymic affect Results & Data Vital Signs (Past 12 Hours) Vital Signs Temp Pulse Resp BP BP Pulse Ox 09/01/18 11:48 37.0 C 81 19 110/64 93 09/01/18 08:15 36.7 C 76 19 126/66 94 Laboratory Results Short CBC 09/01/18 Range/Units 06:15 WBC 13.17 H (4.8-10.8) K/uL Hgb 12.6 L (14.0-18.0) g/dL Hct 37.0 L (42-52) % Plt Count 572 H (130-400) K/uL BMP 09/01/18 06:15 Sodium 139 Potassium 3.5 Chloride 104 Carbon Dioxide 28 BUN 15 Creatinine 0.85 Glucose 182 H Calcium 8.8 Liver Function 09/01/18 Range/Units 06:15 Total Bilirubin 0.3 (0.2-1) mg/dl Direct Bilirubin < 0.1 (0-0.2) mg/dl AST 18 (15-37) U/L ALT 22 (12-78) U/L Alkaline Phosphatase 98 (45-117) U/L Albumin 2.2 L (3.4-5.0) gm/dl Diagnostic Findings -Work up- 08/24- CT abd pelvis with IV contrast-interval cholecystectomy, CBD stent, drain, complex air-fluid pocket and gallbladder fossa 4 x 1.5 cm. Postoperative change versus developing abscess, developing pancreatitis with no abscess or pseudocyst, atelectatic changes. 08/22- KUB-Mild generalized nonobstructive colonic ileus, postoperative change 08/19 - CT abdomen pelvis shows: Distended gallbladder with pericholecystic inflammatory change,, adjacent hepatic hyperemia, and tiny gas bubbles within the gallbladder lumen. The findings are concerning for acute cholecystitis and clinical correlation in this regard is advocated. If desired a nuclear medicine hepatobiliary study could be obtained in follow-up to assess cystic duct patency. 2. Hepatic steatosis 3. Basilar atelectatic changes Medications Administered Current Inpatient Medications Acetaminophen (Tylenol) 650 mg PO Q4H PRN PRN Reason: Mild Pain Stop: 09/20/18 07:36 Last Admin: 08/23/18 15:34 Dose: 650 mg Documented by: Al Hydrox/Mg Hydrox/Simethicone (Maalox Max) 15 ml PO Q6H PRN PRN Reason: Heartburn Stop: 09/30/18 13:29 Calcium Carbonate (Tums) 500 mg PO PRN PRN PRN Reason: Indigestion Stop: 09/30/18 12:50 Last Admin: 09/01/18 09:14 Dose: 500 mg Documented by: Dextrose (Dextrose 50%) 25 - 50 ml IV UD PRN; Protocol PRN Reason: Hypoglycemia Protocol Stop: 09/19/18 19:16 Glucagon (Glucagen) 1 mg SQ UD PRN; Protocol PRN Reason: Hypoglycemia Protocol Stop: 09/19/18 19:16 Glucose (Dex4 Glucose) 4 - 8 tabs PO UD PRN; Protocol PRN Reason: Hypoglycemia Protocol Stop: 09/19/18 19:16 Glucose (Glucose 40%) 15 - 30 gm PO UD PRN; Protocol PRN Reason: Hypoglycemia Protocol Stop: 09/19/18 19:16 Hydralazine HCl (Hydralazine Hcl) 10 mg IV Q8 PRN PRN Reason: SBP > 180 Stop: 09/21/18 08:07 Last Admin: 08/22/18 10:30 Dose: 10 mg Documented by: Piperacillin Sod/Tazobactam (Sod 3.375 gm/ Dextrose) 115 mls @ 28.75 mls/hr IV Q8H ABHIJIT; Protocol Stop: 09/02/18 13:59 Last Admin: 09/01/18 11:54 Dose: 28.8 mls/hr Documented by: Promethazine HCl 12.5 mg/ (Sodium Chloride) 50.5 mls @ 202 mls/hr IV Q6H PRN PRN Reason: Nausea And Vomiting Stop: 09/22/18 20:15 Last Infusion: 08/23/18 21:30 Dose: Infused Documented by: Acetaminophen (Ofirmev) 65 mls @ 200 mls/hr IV Q8H [facility] Stop: 09/26/18 11:59 Last Infusion: 09/01/18 11:58 Dose: Infused Documented by: Insulin Aspart (Novolog Flexpen) 0 units SC ACHS [facility] Stop: 09/25/18 20:59 Last Admin: 09/01/18 08:57 Dose: 8 units Documented by: Ioversol (Optiray 320 100ml) 89 ml IV ONCE PRN PRN Reason: Interaction Checking Stop: 09/01/18 21:02 Last Admin: 08/28/18 21:03 Dose: 89 ml Documented by: Levetiracetam (Keppra) 1,500 mg PO BID [facility] Stop: 09/20/18 08:59 Last Admin: 09/01/18 08:57 Dose: 1,500 mg Documented by: Lisinopril (Zestril) 20 mg PO BID [facility] Stop: 09/25/18 20:59 Last Admin: 09/01/18 08:58 Dose: 20 mg Documented by: Loperamide HCl (Imodium) 2 mg PO Q8 PRN PRN Reason: Loose Stool Stop: 09/28/18 11:32 Last Admin: 08/31/18 07:42 Dose: 2 mg Documented by: Miscellaneous (Carbohydrates For Hypoglycemia) 15 - 30 gm PO UD PRN PRN Reason: Hypoglycemia Treatment Stop: 09/19/18 19:16 Miscellaneous Information (Consult) 1 ea N/A UD PRN PRN Reason: Consult Stop: 09/18/18 18:18 Morphine Sulfate (Morphine Sulfate) 4 mg IV Q6 PRN PRN Reason: Pain Stop: 09/06/18 14:42 Ondansetron HCl (Zofran) 4 mg IV Q6H PRN PRN Reason: Nausea Stop: 09/18/18 18:29 Last Admin: 08/26/18 07:41 Dose: 4 mg Documented by: Oxycodone/Acetaminophen (Percocet 5mg/325mg) 1 tab PO Q4H PRN PRN Reason: Pain Stop: 09/03/18 13:59 Last Admin: 08/26/18 12:13 Dose: 1 tab Documented by: Ranitidine HCl (Zantac) 150 mg PO BID ABHIJIT Stop: 09/30/18 08:59 Last Admin: 09/01/18 08:57 Dose: 150 mg Documented by: (1) Diabetes Diabetes mellitus type: type 2 Diabetes mellitus handicapped teacher insulin use: without penitentiary use Diabetes mellitus complication status: with unspecified complications Qualified Code(s): E11.8 - Type 2 diabetes mellitus with unspecified complications
[2018-09-01] MEDS ORDERED: POTASSIUM CHLORIDE 20 MEQ TABCR PO STA (12:28)
[2018-09-01] MEDS ORDERED: PANTOprazole 40 MG TAB PO STA (12:31)
[2018-09-01] MEDS ORDERED: ACETAMINOPHEN 65 ML IV PRN (20:00)
[2018-09-02] MEDS: PIPERACILLIN/TAZOBACTAM 3.375 GM in DEXTROSE 5% 100 ML IV SCH ×2 (04:16→12:00)
[2018-09-02] MEDS: levETIRAcetam ORAL SOLN 100MG/ML PO SCH ×2 (09:21→21:22)
[2018-09-02] MEDS: PANTOprazole 40 MG TAB PO SCH (09:23)
[2018-09-02] MEDS: RANITIDINE HCL SYRUP 150 MG/10 ML UDC PO SCH ×2 (09:23→21:20)
[2018-09-02] MEDS: LISINOPRIL 20 MG TAB PO SCH ×2 (09:25→21:22)
[2018-09-02] MEDS: INSULIN ASPART 100 UNITS/ML 3 ML PEN SC SCH ×4 (09:27→21:24)
[2018-09-02] MEDS: ACETAMINOPHEN 325 MG TAB PO PRN (09:35)
[2018-09-02] MEDS: CALCIUM CARBONATE 500 MG CHEWABLE TAB PO PRN (12:53)
--- NOTE | 2018-09-02 13:46 | Surgery Progress Note ---
Date of Service September 02, 2018 Assessment & Plan (1) Acute cholecystitis: Postoperative day 13, status post laparoscopic cholecystectomy for gangrenous cholecystitis Doing well Minimal drainage Plan is for discharge to residential for rehabilitation Plan for repeat ERCP for stent removal Would leave drain in place until we can demonstrate that there is no leak. Would recheck WBC and if it remains elevated would then send on antibiotics Subjective Feels well today Had formed bowel movement Has rare abdominal discomfort mostly after eating Denies nausea and vomiting Physical Exam Gastrointestinal (Abdomen): Inspection/Auscultation: abdomen normal to inspection; abdomen not distended Percussion/Palpation: abdomen soft; abdomen nontender Results & Data Vital Signs (Past 12 Hours) Vital Signs Temp Pulse Pulse Resp BP Pulse Ox 09/02/18 07:55 36.7 C 79 16 128/72 92 09/02/18 06:30 36.9 C 75 19 131/71 90
--- NOTE | 2018-09-02 16:56 | Hospitalist Progress Note ---
Date of Service September 02, 2018 Assessment & Plan (1) Sepsis: Secondary to gangrenous/necrotic cholecystitis Status post laparoscopic cholecystectomy postoperative day 12 Developed postoperative complication with biliary leakage, status post ERCP with biliary stent placed Clinically much better and a surgical drain is his draining minimal fluid Denies any significant symptoms Tolerating diet well Discussed with surgery:Plan for repeat ERCP for stent removal Would leave drain in place until we can demonstrate that there is no leak. If increasing white count or fever we like to antibiotic to continue (2) Acute cholecystitis: -S/P Laparoscopic Cholecystectomy with necrotizing cholecystitis on 08/20/2018- POD # 12 Developed sepsis post operatively with WBC upto 32k, Tachycardia, fever spike- secondary to postop complication/biliary leak -S/P ERCP -Biliary leak was found, biliary sphincterectomy performed, stent placed on 08/21/18 - POD # 10 Per GI, patient will need outpatient ERCP for removal or biliary stent in 4 to 6 weeks Continue on IV Zosyn complete total 14 days tx Blood cx x 2- Normal , Lactic acid - Normal; MRSA - negative Clinically better Very slow improvement Multiple post procedure complications, Repeat CT abdomen pelvis as outlined above, or surgery, patient is Stable to advance diet to full liquid, continue to monitor (3) Hypokalemia: Secondary to poor p.o. intake, nausea vomiting Resolved-diet advanced Remains normal (4) HTN (hypertension): BP remains stable -Started on Lisinopril 10 mg daily on 08/22-----> Increased it to 10 mg BID on 08/23/18--> Increased to 20 mg BID on 08/26/18 -IV Hydralazine PRN for SBP >180 -Pain control (5) History of stroke: -Takes aspirin 325 mg daily, which is kept on hold for post surgery status. To be kept off NSAIDS and Aspirin for 5 days from ERCP procedure -Should be resumed when bleeding risk post cholecystectomy is acceptable per surgery -Will continue to hold till his abdominal pain improves (6) Diabetes: -Type 2 diabetes, on oral meds, metformin kept on hold -Insulin sliding scale -Hemoglobin A1c 6.3 suggestive of well controlled BSG (7) Seizure disorder as sequela of cerebrovascular accident: Last seizure episode approximately 3 years back/2016 -On Keppra -No more seizures in the emergency room (8) Leukocytosis: Secondary to acute cholecystitis and complicated by surgery and other procedure Has been on intravenous Zosyn and the white count has been improving CODE STATUS discussed with patient and family, willing for short term intubation/mechanical ventilation for surgery DVT prophylaxis: SCD and TEDs due to post surgery status Disposition: pt will need rehab -referral made to [facility] is following for discharge planning Likely discharge to [facility] in a day or 2 Medically stable to be discharged likely to go to [facility] tomorrow Subjective 09/01 The patient was seen and examined in medical floor Chief complaint history of some back pain Denies any other symptoms except generalized weakness 09/02 The patient was seen and examined in medical floor He remained stable and has been getting better for the last few days He denies any fever and/or chills, no abdominal pain nausea no vomiting His drain is has been decreased but not yet stopped Review of Systems Review of Systems: All systems reviewed and are unremarkable except as noted below Constitutional: + weakness Gastrointestinal: + heartburn and + nausea; no abdominal pain and no vomiting Physical Exam Constitutional: no acute distress Eyes: PERRL, conjunctivae normal, anicteric sclerae ENMT: external ear and nose normal, oropharynx normal Neck: trachea midline, no thyromegaly Respiratory: normal respiratory effort Auscultation: lungs clear to auscultation bilaterally Cardiovascular: RRR, no murmur, no edema Gastrointestinal (Abdomen): Inspection/Auscultation: + abdomen abnormal to inspection (s/p laparascopic cholecystectomy , CARA drain persent ) Musculoskeletal: no cyanosis or clubbing, extremities motor strength 5/5 Skin: no rashes, warm and dry Neurologic: + focal motor deficit (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) Psychiatric: A+Ox3, euthymic affect Lymphatic: no cervical or axillary lymphadenopathy Results & Data Vital Signs (Past 12 Hours) Vital Signs Temp Pulse Pulse Resp BP Pulse Ox 09/02/18 14:44 36.3 C L 90 17 143/71 H 94 09/02/18 07:55 36.7 C 79 16 128/72 92 09/02/18 06:30 36.9 C 75 19 131/71 90 Medications Administered Current Inpatient Medications Acetaminophen (Tylenol) 650 mg PO Q4H PRN PRN Reason: Mild Pain Stop: 09/20/18 07:36 Last Admin: 09/02/18 09:35 Dose: 650 mg Documented by: Al Hydrox/Mg Hydrox/Simethicone (Maalox Max) 15 ml PO Q6H PRN PRN Reason: Heartburn Stop: 09/30/18 13:29 Calcium Carbonate (Tums) 500 mg PO PRN PRN PRN Reason: Indigestion Stop: 09/30/18 12:50 Last Admin: 09/02/18 12:53 Dose: 500 mg Documented by: Dextrose (Dextrose 50%) 25 - 50 ml IV UD PRN; Protocol PRN Reason: Hypoglycemia Protocol Stop: 09/19/18 19:16 Glucagon (Glucagen) 1 mg SQ UD PRN; Protocol PRN Reason: Hypoglycemia Protocol Stop: 09/19/18 19:16 Glucose (Dex4 Glucose) 4 - 8 tabs PO UD PRN; Protocol PRN Reason: Hypoglycemia Protocol Stop: 09/19/18 19:16 Glucose (Glucose 40%) 15 - 30 gm PO UD PRN; Protocol PRN Reason: Hypoglycemia Protocol Stop: 09/19/18 19:16 Hydralazine HCl (Hydralazine Hcl) 10 mg IV Q8 PRN PRN Reason: SBP > 180 Stop: 09/21/18 08:07 Last Admin: 08/22/18 10:30 Dose: 10 mg Documented by: Promethazine HCl 12.5 mg/ (Sodium Chloride) 50.5 mls @ 202 mls/hr IV Q6H PRN PRN Reason: Nausea And Vomiting Stop: 09/22/18 20:15 Last Infusion: 08/23/18 21:30 Dose: Infused Documented by: Acetaminophen (Ofirmev) 65 mls @ 200 mls/hr IV Q8H PRN PRN Reason: pain Stop: 09/26/18 19:59 Insulin Aspart (Novolog Flexpen) 0 units SC ACHS ABHIJIT Stop: 09/25/18 20:59 Last Admin: 09/02/18 13:54 Dose: 4 units Documented by: Levetiracetam (Keppra) 1,500 mg PO BID ABHIJIT Stop: 09/20/18 08:59 Last Admin: 09/02/18 09:21 Dose: 1,500 mg Documented by: Lisinopril (Zestril) 20 mg PO BID [facility] Stop: 09/25/18 20:59 Last Admin: 09/02/18 09:25 Dose: 20 mg Documented by: Loperamide HCl (Imodium) 2 mg PO Q8 PRN PRN Reason: Loose Stool Stop: 09/28/18 11:32 Last Admin: 08/31/18 07:42 Dose: 2 mg Documented by: Miscellaneous (Carbohydrates For Hypoglycemia) 15 - 30 gm PO UD PRN PRN Reason: Hypoglycemia Treatment Stop: 09/19/18 19:16 Morphine Sulfate (Morphine Sulfate) 4 mg IV Q6 PRN PRN Reason: Pain Stop: 09/06/18 14:42 Ondansetron HCl (Zofran) 4 mg IV Q6H PRN PRN Reason: Nausea Stop: 09/18/18 18:29 Last Admin: 08/26/18 07:41 Dose: 4 mg Documented by: Oxycodone/Acetaminophen (Percocet 5mg/325mg) 1 tab PO Q4H PRN PRN Reason: Pain Stop: 09/03/18 13:59 Last Admin: 08/26/18 12:13 Dose: 1 tab Documented by: Pantoprazole Sodium (Protonix) 40 mg PO QAM ABHIJIT Stop: 09/04/18 09:01 Last Admin: 09/02/18 09:23 Dose: 40 mg Documented by: Ranitidine HCl (Zantac) 150 mg PO BID [facility] Stop: 09/30/18 08:59 Last Admin: 09/02/18 09:23 Dose: 150 mg Documented by: (1) Diabetes Diabetes mellitus type: type 2 Diabetes mellitus exterminator insulin use: without exterminator use Diabetes mellitus complication status: with unspecified complications Qualified Code(s): E11.8 - Type 2 diabetes mellitus with unspecified complications
[2018-09-03] MEDS: PANTOprazole 40 MG TAB PO SCH (08:49)
[2018-09-03] MEDS: LISINOPRIL 20 MG TAB PO SCH ×2 (08:49→20:29)
[2018-09-03] MEDS: RANITIDINE HCL SYRUP 150 MG/10 ML UDC PO SCH ×2 (08:50→20:28)
[2018-09-03] MEDS: levETIRAcetam ORAL SOLN 100MG/ML PO SCH ×2 (08:50→20:28)
[2018-09-03 08:55] LABS: Basophils # (auto) 0.07 K/uL (0-0.2); Basophils % (auto) 0.5 %; Eosinophils # (auto) 0.26 K/uL (0-0.5); Eosinophils % (auto) 1.9 %; Hematocrit (blood only) 38.4 % (42-52); Hemoglobin 12.9 g/dL (14.0-18.0); Immature Granulocytes # (auto) 0.07 K/uL (0.00-0.02); Immature Granulocytes % (auto) 0.5 %; Lymphocytes # (auto) 2.28 K/uL (1.2-3.4); Lymphocytes % (auto) 16.9 %; Mean Corpuscular Hgb Conc 33.6 g/dL (32-36); Mean Platelet Volume 9.2 fL (7.4-10.4); Monocytes # (auto) 1.09 K/uL (0.11-0.59); Monocytes % (auto) 8.1 %; Neutrophils # (auto) 9.71 K/uL (1.4-6.5); Neutrophils % (auto) 72.1 %; Platelet Count 590 K/uL (130-400); RDW Coefficient of Variation 13.5 % (11.5-14.5); RDW Standard Deviation 44.9 fL (36.4-46.3); Red Blood Count 4.22 M/uL (4.7-6.1); White Blood Count 13.48 K/uL (4.8-10.8)
[2018-09-03] MEDS: INSULIN ASPART 100 UNITS/ML 3 ML PEN SC SCH ×4 (09:25→21:58)
[2018-09-03] MEDS: CALCIUM CARBONATE 500 MG CHEWABLE TAB PO PRN ×3 (12:49→20:30)
--- NOTE | 2018-09-03 16:26 | Surgery Progress Note ---
Date of Service September 03, 2018 Assessment & Plan (1) Acute cholecystitis: Postoperative day 13 status post laparoscopic cholecystectomy for gangrenous cholecystitis. White count unchanged No fever Awaiting approval for [facility] placement for rehabilitation [facility] after stent removed Subjective CARA with minimal output Postoperative day #13 status post laparoscopic cholecystectomy for gangrenous appendicitis Abdomen is mild discomfort Was able to eat Had diarrhea again today Physical Exam Gastrointestinal (Abdomen): Inspection/Auscultation: + abdomen distended (Mild), normal bowel sounds and + abdominal surgical incision (They are clean dry and intact) Percussion/Palpation: abdomen soft; abdomen nontender Results & Data Vital Signs (Past 12 Hours) Vital Signs Temp Pulse Resp BP Pulse Ox 09/03/18 14:58 36.8 C 68 19 126/63 93 09/03/18 07:27 36.8 C 80 16 121/64 93 Laboratory Results 09/03/18 09/03/18 09/03/18 Range/Units 12:02 08:22 08:22 WBC (4.8-10.8) K/uL RBC (4.7-6.1) M/uL Hgb (14.0-18.0) g/dL Hct (42-52) % MCV (80-100) fL MCH (25-34) pg MCHC (32-36) g/dL RDW Std Deviation (36.4-46.3) fL RDW Coeff of Araceli (11.5-14.5) % Plt Count (130-400) K/uL MPV (7.4-10.4) fL Immature Gran % (Auto) % Neut % (Auto) % Lymph % (Auto) % [place] % (Auto) % Eos % (Auto) % Baso % (Auto) % Immature Gran # (Auto) (0.00-0.02) K/uL Neut # (Auto) (1.4-6.5) K/uL Lymph # (Auto) (1.2-3.4) K/uL [place] # (Auto) (0.11-0.59) K/uL Eos # (Auto) (0-0.5) K/uL Baso # (Auto) (0-0.2) K/uL POC Glucose 174 H 145 H (70-99) Magnesium 2.1 (1.8-2.4) mg/dl 09/03/18 09/02/18 09/02/18 Range/Units 08:22 21:03 17:28 WBC 13.48 H (4.8-10.8) K/uL RBC 4.22 L (4.7-6.1) M/uL Hgb 12.9 L (14.0-18.0) g/dL Hct 38.4 L (42-52) % MCV 91.0 (80-100) fL MCH 30.6 (25-34) pg MCHC 33.6 (32-36) g/dL RDW Std Deviation 44.9 (36.4-46.3) fL RDW Coeff of Araceli 13.5 (11.5-14.5) % Plt Count 590 H (130-400) K/uL MPV 9.2 (7.4-10.4) fL Immature Gran % (Auto) 0.5 % Neut % (Auto) 72.1 % Lymph % (Auto) 16.9 % [place] % (Auto) 8.1 % Eos % (Auto) 1.9 % Baso % (Auto) 0.5 % Immature Gran # (Auto) 0.07 H (0.00-0.02) K/uL Neut # (Auto) 9.71 H (1.4-6.5) K/uL Lymph # (Auto) 2.28 (1.2-3.4) K/uL [place] # (Auto) 1.09 H (0.11-0.59) K/uL Eos # (Auto) 0.26 (0-0.5) K/uL Baso # (Auto) 0.07 (0-0.2) K/uL POC Glucose 155 H 150 H (70-99) Magnesium (1.8-2.4) mg/dl
--- NOTE | 2018-09-03 17:45 | Hospitalist Progress Note ---
Date of Service September 03, 2018 Assessment & Plan (1) Sepsis: Secondary to gangrenous/necrotic cholecystitis Status post laparoscopic cholecystectomy postoperative day 12 Developed postoperative complication with biliary leakage, status post ERCP with biliary stent placed Clinically much better and a surgical drain is his draining minimal fluid Denies any significant symptoms Tolerating diet well Discussed with surgery:Plan for repeat ERCP for stent removal Would leave drain in place until we can demonstrate that there is no leak. If increasing white count or fever we like to continue antibiotic The patient is accepted to [facility] this afternoon Will be discharged to [facility] tomorrow (2) Acute cholecystitis: -S/P Laparoscopic Cholecystectomy with necrotizing cholecystitis on 08/20/2018- POD # 12 Developed sepsis post operatively with WBC upto 32k, Tachycardia, fever spike- secondary to postop complication/biliary leak -S/P ERCP -Biliary leak was found, biliary sphincterectomy performed, stent placed on 08/21/18 - POD # 10 Per GI, patient will need outpatient ERCP for removal or biliary stent in 4 to 6 weeks Continue on IV Zosyn complete total 14 days tx Blood cx x 2- Normal , Lactic acid - Normal; MRSA - negative Clinically better White count remains elevated at 13.48 and has not been changing No fever and/or chills We will discontinue antibiotic on discharge Very slow improvement Multiple post procedure complications, Repeat CT abdomen pelvis as outlined above, or surgery, patient is Stable to advance diet to full liquid, continue to monitor (3) Hypokalemia: Secondary to poor p.o. intake, nausea vomiting Resolved-diet advanced Remains normal (4) HTN (hypertension): BP remains stable -Started on Lisinopril 10 mg daily on 08/22-----> Increased it to 10 mg BID on 08/23/18--> Increased to 20 mg BID on 08/26/18 -IV Hydralazine PRN for SBP >180 (5) History of stroke: -Takes aspirin 325 mg daily, which is kept on hold for post surgery status. To be kept off NSAIDS and Aspirin for 5 days from ERCP procedure -Should be resumed when bleeding risk post cholecystectomy is acceptable per surgery -Will continue to hold till his abdominal pain improves (6) Diabetes: -Type 2 diabetes, on oral meds, metformin kept on hold -Insulin sliding scale -Hemoglobin A1c 6.3 suggestive of well controlled BSG (7) Seizure disorder as sequela of cerebrovascular accident: Last seizure episode approximately 3 years back/2016 -On Keppra -No more seizures in the emergency room (8) Leukocytosis: Secondary to acute cholecystitis and complicated by surgery and other procedure Has been on intravenous Zosyn and the white count has been stable at 13 K CODE STATUS discussed with patient and family, willing for short term intubation/mechanical ventilation for surgery DVT prophylaxis: SCD and TEDs due to post surgery status Disposition: pt will need rehab -referral made to [facility] is following for discharge planning Likely discharge to [facility] in a day or 2 Medically stable to be discharged likely to go to [facility] tomorrow Subjective 09/01 The patient was seen and examined in medical floor Chief complaint history of some back pain Denies any other symptoms except generalized weakness 09/02 The patient was seen and examined in medical floor He remained stable and has been getting better for the last few days He denies any fever and/or chills, no abdominal pain nausea no vomiting His drain is has been decreased but not yet stopped 09/03 The patient was seen and examined in medical floor He remains stable for the last few days Minimal abdominal pain and minimal drainage from the intra-abdominal tube Denies any other symptoms Review of Systems Review of Systems: All systems reviewed and are unremarkable except as noted below Constitutional: + weakness Gastrointestinal: + heartburn and + nausea; no abdominal pain and no vomiting Physical Exam Physical Exam: No apparent distress at rest Constitutional: no acute distress Eyes: PERRL, conjunctivae normal, anicteric sclerae ENMT: external ear and nose normal, oropharynx normal Neck: trachea midline, no thyromegaly Respiratory: normal respiratory effort Auscultation: lungs clear to auscultation bilaterally Cardiovascular: RRR, no murmur, no edema Gastrointestinal (Abdomen): Inspection/Auscultation: + abdomen abnormal to inspection (s/p laparascopic cholecystectomy , CARA drain persent ) Percussion/Palpation: abdomen soft Musculoskeletal: no cyanosis or clubbing, extremities motor strength 5/5 Skin: no rashes, warm and dry Neurologic: + focal motor deficit (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) Psychiatric: A+Ox3, euthymic affect Lymphatic: no cervical or axillary lymphadenopathy Results & Data Vital Signs (Past 12 Hours) Vital Signs Temp Pulse Resp BP Pulse Ox 09/03/18 14:58 36.8 C 68 19 126/63 93 09/03/18 07:27 36.8 C 80 16 121/64 93 Laboratory Results Short CBC 09/03/18 Range/Units 08:22 WBC 13.48 H (4.8-10.8) K/uL Hgb 12.9 L (14.0-18.0) g/dL Hct 38.4 L (42-52) % Plt Count 590 H (130-400) K/uL Medications Administered Current Inpatient Medications Acetaminophen (Tylenol) 650 mg PO Q4H PRN PRN Reason: Mild Pain Stop: 09/20/18 07:36 Last Admin: 09/02/18 09:35 Dose: 650 mg Documented by: Al Hydrox/Mg Hydrox/Simethicone (Maalox Max) 15 ml PO Q6H PRN PRN Reason: Heartburn Stop: 09/30/18 13:29 Calcium Carbonate (Tums) 500 mg PO PRN PRN PRN Reason: Indigestion Stop: 09/30/18 12:50 Last Admin: 09/03/18 15:04 Dose: 500 mg Documented by: Dextrose (Dextrose 50%) 25 - 50 ml IV UD PRN; Protocol PRN Reason: Hypoglycemia Protocol Stop: 09/19/18 19:16 Glucagon (Glucagen) 1 mg SQ UD PRN; Protocol PRN Reason: Hypoglycemia Protocol Stop: 09/19/18 19:16 Glucose (Dex4 Glucose) 4 - 8 tabs PO UD PRN; Protocol PRN Reason: Hypoglycemia Protocol Stop: 09/19/18 19:16 Glucose (Glucose 40%) 15 - 30 gm PO UD PRN; Protocol PRN Reason: Hypoglycemia Protocol Stop: 09/19/18 19:16 Hydralazine HCl (Hydralazine Hcl) 10 mg IV Q8 PRN PRN Reason: SBP > 180 Stop: 09/21/18 08:07 Last Admin: 08/22/18 10:30 Dose: 10 mg Documented by: Promethazine HCl 12.5 mg/ (Sodium Chloride) 50.5 mls @ 202 mls/hr IV Q6H PRN PRN Reason: Nausea And Vomiting Stop: 09/22/18 20:15 Last Infusion: 08/23/18 21:30 Dose: Infused Documented by: Acetaminophen (Ofirmev) 65 mls @ 200 mls/hr IV Q8H PRN PRN Reason: pain Stop: 09/26/18 19:59 Insulin Aspart (Novolog Flexpen) 0 units SC ACHS ABHIJIT Stop: 09/25/18 20:59 Last Admin: 09/03/18 13:40 Dose: 4 units Documented by: Levetiracetam (Keppra) 1,500 mg PO BID [facility] Stop: 09/20/18 08:59 Last Admin: 09/03/18 08:50 Dose: 1,500 mg Documented by: Lisinopril (Zestril) 20 mg PO BID [facility] Stop: 09/25/18 20:59 Last Admin: 09/03/18 08:49 Dose: 20 mg Documented by: Loperamide HCl (Imodium) 2 mg PO Q8 PRN PRN Reason: Loose Stool Stop: 09/28/18 11:32 Last Admin: 08/31/18 07:42 Dose: 2 mg Documented by: Miscellaneous (Carbohydrates For Hypoglycemia) 15 - 30 gm PO UD PRN PRN Reason: Hypoglycemia Treatment Stop: 09/19/18 19:16 Morphine Sulfate (Morphine Sulfate) 4 mg IV Q6 PRN PRN Reason: Pain Stop: 09/06/18 14:42 Ondansetron HCl (Zofran) 4 mg IV Q6H PRN PRN Reason: Nausea Stop: 09/18/18 18:29 Last Admin: 08/26/18 07:41 Dose: 4 mg Documented by: Pantoprazole Sodium (Protonix) 40 mg PO QAM [facility] Stop: 09/04/18 09:01 Last Admin: 09/03/18 08:49 Dose: 40 mg Documented by: Ranitidine HCl (Zantac) 150 mg PO BID [facility] Stop: 09/30/18 08:59 Last Admin: 09/03/18 08:50 Dose: 150 mg Documented by: (1) Diabetes Diabetes mellitus type: type 2 Diabetes mellitus senior care insulin use: without vermin exterminator use Diabetes mellitus complication status: with unspecified complications Qualified Code(s): E11.8 - Type 2 diabetes mellitus with unspecified complications
[2018-09-04] MEDS: levETIRAcetam ORAL SOLN 100MG/ML PO SCH (07:55)
[2018-09-04] MEDS: RANITIDINE HCL SYRUP 150 MG/10 ML UDC PO SCH (07:56)
[2018-09-04] MEDS: LISINOPRIL 20 MG TAB PO SCH (07:56)
[2018-09-04] MEDS: PANTOprazole 40 MG TAB PO SCH (07:56)
[2018-09-04 08:17] LABS: Basophils # (auto) 0.04 K/uL (0-0.2); Basophils % (auto) 0.4 %; Eosinophils # (auto) 0.25 K/uL (0-0.5); Eosinophils % (auto) 2.3 %; Hemoglobin 12.6 g/dL (14.0-18.0); Immature Granulocytes # (auto) 0.05 K/uL (0.00-0.02); Immature Granulocytes % (auto) 0.5 %; Lymphocytes # (auto) 2.21 K/uL (1.2-3.4); Lymphocytes % (auto) 20.4 %; Mean Corpuscular Hgb Conc 33.2 g/dL (32-36); Mean Corpuscular Volume 91.1 fL (80-100); Mean Platelet Volume 9.3 fL (7.4-10.4); Monocytes # (auto) 0.76 K/uL (0.11-0.59); Neutrophils # (auto) 7.53 K/uL (1.4-6.5); Neutrophils % (auto) 69.4 %; Platelet Count 550 K/uL (130-400); RDW Coefficient of Variation 13.4 % (11.5-14.5); RDW Standard Deviation 44.8 fL (36.4-46.3); Red Blood Count 4.17 M/uL (4.7-6.1); White Blood Count 10.84 K/uL (4.8-10.8)
[2018-09-04 08:47] LABS: BUN Creatinine Ratio 19.1 (10-20); Calcium 9.1 mg/dl (8.5-10.1); Est GFR (African American) 108.6; Est GFR (Non-African American) 93.7; Potassium 3.9 mmol/L (3.5-5.1)
[2018-09-04] MEDS: INSULIN ASPART 100 UNITS/ML 3 ML PEN SC SCH ×2 (09:31→13:42)
--- NOTE | 2018-09-04 10:48 | Hospitalist Progress Note ---
Date of Service September 04, 2018 Assessment & Plan (1) Sepsis: Secondary to gangrenous/necrotic cholecystitis Status post laparoscopic cholecystectomy postoperative day 14 Developed postoperative complication with biliary leakage, status post ERCP with biliary stent placed Clinically much better and a surgical drain is his draining minimal fluid Denies any significant symptoms Tolerating diet well Discussed with surgery:Plan for repeat ERCP for stent removal Would leave drain in place until we can demonstrate that there is no leak. If increasing white count or fever we like to continue antibiotic The patient is accepted to [facility] this afternoon Will be discharged to [facility] today (2) Acute cholecystitis: -S/P Laparoscopic Cholecystectomy with necrotizing cholecystitis on 08/20/2018- POD # 12 Developed sepsis post operatively with WBC upto 32k, Tachycardia, fever spike- secondary to postop complication/biliary leak -S/P ERCP -Biliary leak was found, biliary sphincterectomy performed, stent placed on 08/21/18 - POD # 10 Per GI, patient will need outpatient ERCP for removal or biliary stent in 4 to 6 weeks Continue on IV Zosyn complete total 14 days tx Blood cx x 2- Normal , Lactic acid - Normal; MRSA - negative Clinically better White count remains elevated at 13.48 and has not been changing No fever and/or chills We will discontinue antibiotic on discharge CARA drain will be discontinued following removal of biliary stent as per surgeon Very slow improvement Multiple post procedure complications, Repeat CT abdomen pelvis as outlined above, or surgery, patient is Stable to advance diet to full liquid, continue to monitor (3) Hypokalemia: Secondary to poor p.o. intake, nausea vomiting Resolved-diet advanced Remains normal (4) HTN (hypertension): BP remains stable -Started on Lisinopril 10 mg daily on 08/22-----> Increased it to 10 mg BID on 08/23/18--> Increased to 20 mg BID on 08/26/18 -IV Hydralazine PRN for SBP >180 (5) History of stroke: -Takes aspirin 325 mg daily, which is kept on hold for post surgery status. To be kept off NSAIDS and Aspirin for 5 days from ERCP procedure -Should be resumed when bleeding risk post cholecystectomy is acceptable per surgery -Will continue to hold till his abdominal pain improves -will restart Aspirin on discharge (6) Diabetes: -Type 2 diabetes, on oral meds, metformin kept on hold -Insulin sliding scale -Hemoglobin A1c 6.3 suggestive of well controlled BSG (7) Seizure disorder as sequela of cerebrovascular accident: Last seizure episode approximately 3 years back/2016 -On Keppra -No more seizures in the emergency room (8) Leukocytosis: Secondary to acute cholecystitis and complicated by surgery and other procedure Has been on intravenous Zosyn and the white count has been stable at 13 K CODE STATUS discussed with patient and family, willing for short term intubation/mechanical ventilation for surgery DVT prophylaxis: SCD and TEDs due to post surgery status Disposition: pt will need rehab -referral made to [facility] is following for discharge planning Likely discharge to [facility] in a day or 2 Medically stable to be discharged likely to go to [facility] today Subjective 09/01 The patient was seen and examined in medical floor Chief complaint history of some back pain Denies any other symptoms except generalized weakness 09/02 The patient was seen and examined in medical floor He remained stable and has been getting better for the last few days He denies any fever and/or chills, no abdominal pain nausea no vomiting His drain is has been decreased but not yet stopped 09/03 The patient was seen and examined in medical floor He remains stable for the last few days Minimal abdominal pain and minimal drainage from the intra-abdominal tube Denies any other symptoms 09/04 The patient was seen and examined in medical floor He denies any symptoms today except minimal epigastric discomfort He will be going to [facility] today Review of Systems Review of Systems: All systems reviewed and are unremarkable except as noted below Constitutional: + weakness Gastrointestinal: + heartburn; no abdominal pain, no nausea and no vomiting Physical Exam Physical Exam: Lying in bed comfortably Constitutional: no acute distress Eyes: PERRL, conjunctivae normal, anicteric sclerae ENMT: external ear and nose normal, oropharynx normal Neck: trachea midline, no thyromegaly Respiratory: normal respiratory effort Auscultation: lungs clear to auscultation bilaterally Cardiovascular: RRR, no murmur, no edema Gastrointestinal (Abdomen): Inspection/Auscultation: + abdomen abnormal to inspection (s/p laparascopic cholecystectomy , CARA drain persent ) Percussion/Palpation: abdomen soft Has a CARA drain in in situ with minimal drainage Musculoskeletal: no cyanosis or clubbing, extremities motor strength 5/5 Skin: no rashes, warm and dry Neurologic: + focal motor deficit (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) Psychiatric: A+Ox3, euthymic affect Lymphatic: no cervical or axillary lymphadenopathy Results & Data Vital Signs (Past 12 Hours) Vital Signs Temp Pulse Pulse Resp BP Pulse Ox 09/04/18 07:50 36.6 C 79 16 132/68 93 09/03/18 23:10 36.8 C 88 16 123/67 92 Laboratory Results Short CBC 09/04/18 Range/Units 07:56 WBC 10.84 H (4.8-10.8) K/uL Hgb 12.6 L (14.0-18.0) g/dL Hct 38.0 L (42-52) % Plt Count 550 H (130-400) K/uL BMP 09/04/18 07:56 Sodium 139 Potassium 3.9 Chloride 105 Carbon Dioxide 28 BUN 14 Creatinine 0.71 Glucose 156 H Calcium 9.1 Medications Administered Current Inpatient Medications Acetaminophen (Tylenol) 650 mg PO Q4H PRN PRN Reason: Mild Pain Stop: 09/20/18 07:36 Last Admin: 09/02/18 09:35 Dose: 650 mg Documented by: Al Hydrox/Mg Hydrox/Simethicone (Maalox Max) 15 ml PO Q6H PRN PRN Reason: Heartburn Stop: 09/30/18 13:29 Calcium Carbonate (Tums) 500 mg PO PRN PRN PRN Reason: Indigestion Stop: 09/30/18 12:50 Last Admin: 09/03/18 20:30 Dose: 500 mg Documented by: Dextrose (Dextrose 50%) 25 - 50 ml IV UD PRN; Protocol PRN Reason: Hypoglycemia Protocol Stop: 09/19/18 19:16 Glucagon (Glucagen) 1 mg SQ UD PRN; Protocol PRN Reason: Hypoglycemia Protocol Stop: 09/19/18 19:16 Glucose (Dex4 Glucose) 4 - 8 tabs PO UD PRN; Protocol PRN Reason: Hypoglycemia Protocol Stop: 09/19/18 19:16 Glucose (Glucose 40%) 15 - 30 gm PO UD PRN; Protocol PRN Reason: Hypoglycemia Protocol Stop: 09/19/18 19:16 Hydralazine HCl (Hydralazine Hcl) 10 mg IV Q8 PRN PRN Reason: SBP > 180 Stop: 09/21/18 08:07 Last Admin: 08/22/18 10:30 Dose: 10 mg Documented by: Promethazine HCl 12.5 mg/ (Sodium Chloride) 50.5 mls @ 202 mls/hr IV Q6H PRN PRN Reason: Nausea And Vomiting Stop: 09/22/18 20:15 Last Infusion: 08/23/18 21:30 Dose: Infused Documented by: Acetaminophen (Ofirmev) 65 mls @ 200 mls/hr IV Q8H PRN PRN Reason: pain Stop: 09/26/18 19:59 Insulin Aspart (Novolog Flexpen) 0 units SC ACHS [facility] Stop: 09/25/18 20:59 Last Admin: 09/04/18 09:31 Dose: 3 units Documented by: Levetiracetam (Keppra) 1,500 mg PO BID [facility] Stop: 09/20/18 08:59 Last Admin: 09/04/18 07:55 Dose: 1,500 mg Documented by: Lisinopril (Zestril) 20 mg PO BID [facility] Stop: 09/25/18 20:59 Last Admin: 09/04/18 07:56 Dose: 20 mg Documented by: Loperamide HCl (Imodium) 2 mg PO Q8 PRN PRN Reason: Loose Stool Stop: 09/28/18 11:32 Last Admin: 08/31/18 07:42 Dose: 2 mg Documented by: Miscellaneous (Carbohydrates For Hypoglycemia) 15 - 30 gm PO UD PRN PRN Reason: Hypoglycemia Treatment Stop: 09/19/18 19:16 Morphine Sulfate (Morphine Sulfate) 4 mg IV Q6 PRN PRN Reason: Pain Stop: 09/06/18 14:42 Ondansetron HCl (Zofran) 4 mg IV Q6H PRN PRN Reason: Nausea Stop: 09/18/18 18:29 Last Admin: 08/26/18 07:41 Dose: 4 mg Documented by: Ranitidine HCl (Zantac) 150 mg PO BID [facility] Stop: 09/30/18 08:59 Last Admin: 09/04/18 07:56 Dose: 150 mg Documented by: (1) Diabetes Diabetes mellitus type: type 2 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
--- NOTE | 2018-09-04 12:06 | Discharge Summary ---
Date of Service September 04, 2018 Admission HPI Per Admitting Provider This is a 73-year-old male with CVA, seizure disease order after CVA, hypertension, type 2 diabetes on oral meds Came to ER with complaint of intractable abdominal pain nausea vomiting started since Sunday Family mentions that patient was having abdominal discomfort after supper, appetite is been very poor, this morning after breakfast patient vomited, had a low-grade 99 degree fever No report of shortness of breath, no chest heaviness, did no dyspnea on exertion At baseline patient is minimally ambulatory she walks to the kitchen, to dining table, and back to his recliner Family noted no change in his baseline functional status, A week ago patient had blood in his urine, which resolved spontaneously, thought possibly he passed a kidney stone In ER, patient was afebrile, white count elevated 23K, CT abdomen pelvis shows acute cholecystitis Patient will be admitted to medical floor Ordered for n.p.o./bowel rest, IV fluids empiric antibiotic with IV Zosyn Surgery consult requested Patient evaluated by the surgical team already, plan for cholecystectomy tomorrow Admission Exam Per Admitting Provider Constitutional: WD/WN, vitals as above no acute distress Eyes: PERRL, conjunctivae normal, anicteric sclerae ENMT: external ear and nose normal, oropharynx normal Neck: trachea midline, no thyromegaly Respiratory: normal respiratory effort, lungs clear to auscultation Cardiovascular: RRR, no murmur, no edema Gastrointestinal (Abdomen): Mild right upper quadrant pain, no guarding or rigidity, bowel sounds active Musculoskeletal: no cyanosis or clubbing, extremities motor strength 5/5 Skin: no rashes, warm and dry Neurologic: PERRL, EOMI, accommodation nl, no face palsy, no dysarthria Psychiatric: A+Ox3, euthymic affect Principal Diagnosis Acute cholecystitis status post lap carlotta, status post ERCP with biliary stent, CARA drain in situ-will be removed following ERCP and removing the biliary stent as per surgery Discharge Exam Constitutional no acute distress Eyes PERRL, conjunctivae normal, anicteric sclerae ENMT external ear and nose normal, oropharynx normal Neck trachea midline, no thyromegaly Respiratory normal respiratory effort Auscultation: lungs clear to auscultation bilaterally Cardiovascular RRR, no murmur, no edema Gastrointestinal (Abdomen) Inspection/Auscultation: + abdomen abnormal to inspection (s/p laparascopic cholecystectomy , CARA drain persent ) Percussion/Palpation: abdomen soft Musculoskeletal no cyanosis or clubbing, extremities motor strength 5/5 Skin no rashes, warm and dry Neurologic + focal motor deficit (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) Psychiatric A+Ox3, euthymic affect Lymphatic no cervical or axillary lymphadenopathy Discharge Data Allergies Allergy/AdvReac Type Severity Reaction Status Date / Time lactose AdvReac Intermediate GI SYMPTOMS Verified 09/04/18 10:10 Vuqqccz-Fej-Von Reductase AdvReac Unknown MUSCLE Verified 09/04/18 10:10 Inhibitor CRAMPS Consultations 08/19/18 13:27 ED Decision to Admit Stat 08/19/18 13:29 ED Decision to Admit Stat 08/19/18 18:29 Consult General Surgery Routine 08/21/18 09:50 Consult Gastroenterology Routine Procedures Performed Operation Date: 08/20/18 07:15 Actual Procedures p Laparoscopic Cholecystectomy (Not Applicable) - Jayro Osborn MD Operation Date: 08/21/18 12:20 Actual Procedures p Endoscopic Retrograde Cholangiopancreatography(Not Applicable) - Haseeb Spain MD Ordered Studies 08/19/18 11:32 CT abd pelvis IV con only Stat 08/21/18 13:00 FL ERCP biliary ductal Routine 08/24/18 07:25 CT abd pelvis IV con only Routine 08/28/18 19:50 CT abd pelvis IV con only Routine Hospital Course (1) Sepsis: Secondary to gangrenous/necrotic cholecystitis Status post laparoscopic cholecystectomy postoperative day 14 Developed postoperative complication with biliary leakage, status post ERCP with biliary stent placed Clinically much better and a surgical drain is his draining minimal fluid Denies any significant symptoms Tolerating diet well Discussed with surgery:Plan for repeat ERCP for stent removal Would leave drain in place until we can demonstrate that there is no leak. If increasing white count or fever we like to continue antibiotic The patient is accepted to [facility] this afternoon Will be discharged to [facility] today (2) Acute cholecystitis: -S/P Laparoscopic Cholecystectomy with necrotizing cholecystitis on 08/20/2018- POD # 12 Developed sepsis post operatively with WBC upto 32k, Tachycardia, fever spike- secondary to postop complication/biliary leak -S/P ERCP -Biliary leak was found, biliary sphincterectomy performed, stent placed on 08/21/18 - POD # 10 Per GI, patient will need outpatient ERCP for removal or biliary stent in 4 to 6 weeks Continue on IV Zosyn complete total 14 days tx Blood cx x 2- Normal , Lactic acid - Normal; MRSA - negative Clinically better White count remains elevated at 13.48 and has not been changing No fever and/or chills We will discontinue antibiotic on discharge CARA drain will be discontinued following removal of biliary stent as per surgeon Very slow improvement Multiple post procedure complications, Repeat CT abdomen pelvis as outlined above, or surgery, patient is Stable to advance diet to full liquid, continue to monitor (3) Hypokalemia: Secondary to poor p.o. intake, nausea vomiting Resolved-diet advanced Remains normal (4) HTN (hypertension): BP remains stable -Started on Lisinopril 10 mg daily on 08/22-----> Increased it to 10 mg BID on 08/23/18--> Increased to 20 mg BID on 08/26/18 -IV Hydralazine PRN for SBP >180 (5) History of stroke: -Takes aspirin 325 mg daily, which is kept on hold for post surgery status. To be kept off NSAIDS and Aspirin for 5 days from ERCP procedure -Should be resumed when bleeding risk post cholecystectomy is acceptable per surgery -Will continue to hold till his abdominal pain improves -will restart Aspirin on discharge (6) Diabetes: -Type 2 diabetes, on oral meds, metformin kept on hold -Insulin sliding scale -Hemoglobin A1c 6.3 suggestive of well controlled BSG (7) Seizure disorder as sequela of cerebrovascular accident: Last seizure episode approximately 3 years back/2016 -On Keppra -No more seizures in the emergency room (8) Leukocytosis: Secondary to acute cholecystitis and complicated by surgery and other procedure Has been on intravenous Zosyn and the white count has been stable at 13 K CODE STATUS discussed with patient and family, willing for short term intubation/mechanical ventilation for surgery DVT prophylaxis: SCD and TEDs due to post surgery status Disposition: pt will need rehab -referral made to [facility] is following for discharge planning Likely discharge to [facility] in a day or 2 Medically stable to be discharged likely to go to [facility] today Total Time Total Time Spent Total Time Spent (In Minutes): 40 minutes Total Time Includes: Examination of the Patient, Discharge Planning, Medication Reconciliation and Communication With Other Providers Discharge Plan Discharge Items Patient Disposition: Transfer [facility] Reason For Visit: ACUTE CHOLECYSTITS Discharge Diagnosis: Acute cholecystitis status post lap carlotta, status post ERCP with biliary stent, CARA drain in situ-will be removed following ERCP and removing the biliary stent as per surgery Condition: Fair Discharge Goals: Decrease discomfort Activity: Resume your previous activity Non-emergency contact: Primary Care Provider Call non-emergency contact if: you have any medication questions and your symptoms worsen Follow-up/Referrals: Raul Benitez MD [Primary Care Provider] - (Please make an appointment with the primary care provider within 1 week.) Diet: Carb Consistent or DM2 and Low Fat Addtl Provider Instructions: Surgical discharge instructions: - No heavy lifting over 10 pounds for 2 weeks - No strenuous activity until cleared by surgeon - No submerging incisions underwater for 2 weeks (no bathing, swimming, or hot tubs) - No driving while taking narcotic pain medication or until you are pain free - You may shower. Leave steri strips on incisions for 7 days and then remove. - If you go home with surgical drain, record output and color daily. You will have drain removed in surgical office once output decreases - Take Ibuprofen or Tylenol as needed for mild pain. - Follow up in surgical office in 1 week, please call office at [phone] to make an appointment Prescriptions: New lisinopril 20 mg Tablet 20 mg PO BID 30 Days Qty: 60 RF: 0 pantoprazole [Protonix] 40 mg tablet,delayed release (DR/EC) 40 mg PO DAILY Qty: 30 RF: 0 Continued metformin 500 mg Tablet 500 mg PO BID RF: 0 aspirin 325 mg Tablet,Delayed Release (Dr/Ec) 325 mg PO QAM RF: 0 levetiracetam 750 mg Tablet 1,500 mg PO BID RF: 0 ezetimibe [Zetia] 10 mg Tablet 10 mg PO QDD RF: 0 Men's 50 Plus Multivitamin 400-20-370 mcg Tablet 1 tab PO QAM RF: 0 Discontinued lisinopril-hydrochlorothiazide 20-25 mg Tablet 1 tab PO QAM RF: 0 Stand-Alone Forms: Call Back Authorization, [facility]/Other Patient Handouts: Tube Tavo Cleaning Drainage Care Discharge Orders: Discharge Order (Routine); Ordered 09/04/18 Ordered By: Jeannine Gandhi Skilled Items Patient informed of condition?: Yes DNR: Yes Discharge Level of Care: Skilled Communicable Disease: No Discharge Prognosis: Stable Admission Data Admit Date/Time: 08/19/18 17:01 Attending Provider: Jeannine Gandhi Admit Provider: Sierra Frey Primary Care Provider: Raul Benitez Other Providers: Jayro Osborn ; Consuelo Franz ; Jeannine Gandhi ; Haseeb Spain ; Sierra Frey Service: Medical Other Interventions: Discharge Summary Assessment (RN) Last Done: 09/04/18 11:29
[2018-09-04] MEDS: CALCIUM CARBONATE 500 MG CHEWABLE TAB PO PRN (12:58)
== END 2018-09-04 14:25 | DRG 853 ==
LOC: ED 10:07 → 3W 17:01 → SUATTDRO 17:01 → 3W 18:00 → 2N 08-23 16:04 → 3W 09-02 06:27

== ENCOUNTER 2018-09-06 04:13 | Inpatient (IN) ==
[2018-09-06 04:39] LABS: Basophils # (auto) 0.06 K/uL (0-0.2); Basophils % (auto) 0.4 %; Eosinophils # (auto) 0.29 K/uL (0-0.5); Eosinophils % (auto) 2.1 %; Hematocrit (blood only) 35.6 % (42-52); Immature Granulocytes # (auto) 0.04 K/uL (0.00-0.02); Immature Granulocytes % (auto) 0.3 %; Lymphocytes # (auto) 1.69 K/uL (1.2-3.4); Lymphocytes % (auto) 12.1 %; Mean Corpuscular Hgb Conc 33.7 g/dL (32-36); Mean Platelet Volume 9.4 fL (7.4-10.4); Monocytes % (auto) 7.9 %; Neutrophils # (auto) 10.83 K/uL (1.4-6.5); Neutrophils % (auto) 77.2 %; Platelet Count 484 K/uL (130-400); RDW Coefficient of Variation 13.7 % (11.5-14.5); RDW Standard Deviation 45.8 fL (36.4-46.3); Red Blood Count 3.87 M/uL (4.7-6.1); White Blood Count 14.01 K/uL (4.8-10.8)
[2018-09-06 05:14] LABS: Alanine Aminotransferase 45 U/L (12-78); Albumin Globulin Ratio 0.6 (0.9-2); Albumin Level 2.3 gm/dl (3.4-5.0); Alkaline Phosphatase 85 U/L (45-117); Bilirubin,Total 0.6 mg/dl (0.2-1); Blood Urea Nitrogen 20 mg/dl (7-18); Calcium 8.5 mg/dl (8.5-10.1); Carbon Dioxide 28 mmol/L (21-32); Chloride 107 mmol/L (98-107); Creatinine Clr Calc Pharmacy 78.3 ml/min; Est GFR (African American) 99.5; Est GFR (Non-African American) 85.8; Globulin 4.1 gm/dl (2.5-4.0); Glucose 153 mg/dl (70-99); Sodium 140 mmol/L (136-145); Total Protein 6.4 gm/dl (6.4-8.2); Troponin I < 0.015 ng/ml (0-0.045)
[2018-09-06 05:46] LABS: D Dimer 9340 ug/L FEU (0-500)
[2018-09-06] MEDS ORDERED: OPTIRAY 320 125ml IV PRN (06:07)
[2018-09-06] MEDS ORDERED: Heparin IV Standard *NO* Bolus IV ONE (06:46)
--- NOTE | 2018-09-06 07:01 | XRay Report ---
XR chest 1V portable CLINICAL HISTORY: Chest pain and shortness of breath. COMPARISON STUDY: Chest radiograph August 19, 2018. FINDINGS: Lung volumes are at the lower limits of normal. No consolidation or evidence for pulmonary edema. Cardiac size is normal. Mediastinal contours are normal. A stent within the right aspect of th e neck is partially imaged. Heterogeneity of the left humeral diaphysis is noted. IMPRESSION: No acute cardiopulmonary findings. Electronically signed by: Levy Shepherd M.D. 09/06/2018 7:00 AM
[2018-09-06 07:02] LABS: Partial Thromboplastin Ratio 0.9; Partial Thromboplastin Time 25.4 Seconds (21.0-31.0); Prothrombin Time 10.5 Seconds (9.0-12.0)
[2018-09-06] MEDS ORDERED: HEPARIN 25000 UNIT/500 ML D5W IV ONE (07:03)
--- NOTE | 2018-09-06 07:15 | Emergency Department Note ---
Entered by Ten Casanova acting as a scribe for Carlota Peres DO History of Present Illness General Chief complaint: Cardiac Assessment Stated complaint: CHEST HEAVINESS Time Seen by Provider: 09/06/18 04:16 Source: patient History of Present Illness Provider complaint: chest pain/SOB Onset (ago): hour(s) less than 1 Location: chest Pain Consistency: + now resolved and + other (sudden onset ) Relieved By: + other (relaxation) Exacerbated By: + none Associated symptoms: + denies other symptoms The patient is a 73 y/o male who presents to the emergency department for evalu ation of sudden onset chest tightness and shortness of breath prior to arrival. The patient is a resident at [facility] status post abdominal surgery to remove a septic gallbladder. He states that he was trying to get comfortable in bed when he experienced intense chest tightness and shortness of breath. He stated that it felt like he really needed to burp, a big burp. He notes that the pain was so intense his roommate had to use the call button to get the patient assistance. The patient notes that he has been wearing oxygen at [facility] though he does not normally. He also stated that his abdomen fells reasonable when asked if he was having abdominal pain. Since coming to the emergency department he states his breathing is more normal and that the pain was relieved by relaxation. He denies any other symptoms. Home Medications Home Medications Medication Instructions Recorded Confirmed Type aspirin 325 mg PO QAM 12/17/17 09/06/18 History ezetimibe [Zetia] 10 mg PO QPM 12/17/17 09/06/18 History levetiracetam 1,500 mg PO [facility] 12/17/17 09/06/18 History metformin 500 mg PO AMPM 12/17/17 09/06/18 History Men's 50 Plus Multivitamin 1 tab PO QAM 08/19/18 09/06/18 History acetaminophen [Tylenol] 650 mg PO Q4 PRN MDD 3g/24hr 09/06/18 09/06/18 History lisinopril 20 mg PO AMHS 09/06/18 09/06/18 History pantoprazole [Protonix] 40 mg PO QAM 09/06/18 09/06/18 History triamcinolone acetonide 1 applic TOPICAL BID 09/06/18 09/06/18 History Allergies Allergy/AdvReac Type Severity Reaction Status Date / Time lactose AdvReac Intermediate GI SYMPTOMS Verified 09/06/18 04:21 Ugwoqyr-Fgt-Hcz Reductase AdvReac Unknown MUSCLE Verified 09/06/18 04:21 Inhibitor CRAMPS Past Med/Surg History Medical History PAD (peripheral artery disease) History of stroke 5 years ago, residual CANNOT USE LEFT ARM - IN SLING; LEFT LEG WEAK - USES YEN WALKER HTN (hypertension) Diabetes (Chronic) Abdominal pain PER - CURRENTLY AN INPATIENT AND AAWAITING TRANSFER TO [facility] History of fall Hx of seizure disorder Hypokalemia Surgical History History of appendectomy (Resolved) H/O umbilical hernia repair History of common carotid artery stent placement PER - [facility] [place] History of laparoscopic cholecystectomy 08/20/18 Gabriel 2 gr 1 Family History Other No significant family history Social History Preferred Language: Faroese Communication Ability: Effective Beliefs That Will Affect Care: None marital status: Current Living Situation: Spouse Feels Safe at Home: Yes Smoking Status: Former smoker Second Hand Exposure: No Hx Alcohol Use: No Hx Substance Use: No Review of Systems See HPI for pertinent positives & negatives. and A total of 10 systems reviewed and were otherwise negative Physical Exam Vital Signs Vital Signs - 24 hr 09/06/18 04:14 09/06/18 04:17 09/06/18 04:19 Temperature 37.1 C Temperature Source Oral Sepsis Recent Fever Within 48 Hours No Sepsis Action Taken by Nursing No Action Required Pulse Rate 86 89 89 Pulse Rate from SpO2 Sensor 89 88 Respiratory Rate 17 17 16 Respiratory Effort / Characteristics Non-Labored Respiratory Depth Normal Blood Pressure 146/71 H 146/71 H Blood Pressure Mean 96 96 Pulse Oximetry 92 93 92 Oxygen Delivery Method Room Air Oxygen Flow Rate 09/06/18 04:30 09/06/18 04:35 09/06/18 04:51 Temperature Temperature Source Sepsis Recent Fever Within 48 Hours Sepsis Action Taken by Nursing Pulse Rate 87 Pulse Rate from SpO2 Sensor 86 Respiratory Rate 17 Respiratory Effort / Characteristics Respiratory Depth Blood Pressure 127/69 Blood Pressure Mean 88 Pulse Oximetry 92 94 89 L Oxygen Delivery Method Room Air Room Air Oxygen Flow Rate 0 09/06/18 05:00 09/06/18 05:30 09/06/18 06:06 Temperature Temperature Source Sepsis Recent Fever Within 48 Hours Sepsis Action Taken by Nursing Pulse Rate 86 84 84 Pulse Rate from SpO2 Sensor 86 84 84 Respiratory Rate 18 16 16 Respiratory Effort / Characteristics Respiratory Depth Blood Pressure 121/63 135/68 Blood Pressure Mean 82 90 Pulse Oximetry 96 90 94 Oxygen Delivery Method Room Air Oxygen Flow Rate 0 HEENT: Head - normocephalic and atraumatic Pupils are equal, round, and reactive to light. Extraocular eye muscles are intact, and sclera are anicteric. Nose - moist nasal mucosa without discharge. Mouth - moist buccal mucosa. Oropharynx is nonerythematous and there is no tonsillar exudate or edema noted. Neck: Supple; no JVD, nuchal rigidity, cervical lymphadenopathy, or auscultated bruits. Heart: Regular rate and rhythm. There is a normal S1 and S2 with no murmurs, clicks, or gallops appreciated. Lungs: Clear to auscultation bilaterally with no wheezes, rales, or rhonchi. Abdomen: Soft, completely nontender, nondistended, with good bowel sounds. There are no palpable pulsatile masses or hepatosplenomegaly. There is no guarding, rigidity, or rebound noted. Surgical incisions present with steristrips. No signs of infection. In place is a CARA drain. Extremities: No evidence of cyanosis, clubbing, or edema. There are easily palpable peripheral pulses. Skin: warm and dry with good turgor and no rashes. Course 0418: The patient was evaluated in room A10. A complete history and physical exam was performed. These were drawn as above. A twelve-lead EKG was obtained as described above. A chest x-ray was performed. 0548: I checked on the patient, he is sleeping but his vitals are stable. His family is in the room, I reviewed his results with them. He will go to CT to r ule out PE in the chest. The patient did have episodes of hypoxia. 0607: Ordered CT scan of the chest. 0640: I discussed the results with the patient and his family the patients O2 Sat was 88%, he was placed on oxygen. I also spoke with Dr. Preethi Guo Hospitalist, who wants the patient started on a heparin drip and will evaluate for further management. Consultations Consultation #1: I also spoke with Dr. Preethi Guo Hospitalist, who wants the patient started on a heparin drip and will evaluate for further management Time: 06:40 Administered Medications Ioversol (Optiray 320 125ml) 97 ml IV ONCE PRN PRN Reason: Interaction Checking Stop: 09/10/18 06:06 Last Admin: 09/06/18 06:08 Dose: 97 ml Documented by: [id number] Discontinued Medications Heparin Sodium/Dextrose (Heparin Sodium/Dextrose) Confirm Administered Dose 25,000 units IV .Sol [employer] ONE Stop: 09/06/18 07:04 Last Admin: 09/06/18 07:08 Dose: 1,350 units Documented by: [id number] Cosigned by: [id number] Medical Decision Making Differential Diagnosis Differential diagnosis: GERD, anxiety, costochondritis, STEMI, ACS, pulmonary em bolism. Medical Records Attestation: I reviewed the patient's medical records. Home Medications Current Medication List: was personally reviewed by me Laboratory Data Attestation: I reviewed the patient's lab results. Result diagrams: 09/06/18 04:30 09/06/18 04:30 Lab Results 09/06/18 09/06/18 09/06/18 Range/Units 04:30 04:30 05:11 WBC 14.01 H (4.8-10.8) K/uL RBC 3.87 L (4.7-6.1) M/uL Hgb 12.0 L (14.0-18.0) g/dL Hct 35.6 L (42-52) % MCV 92.0 (80-100) fL MCH 31.0 (25-34) pg MCHC 33.7 (32-36) g/dL RDW Std Deviation 45.8 (36.4-46.3) fL RDW Coeff of Araceli 13.7 (11.5-14.5) % Plt Count 484 H (130-400) K/uL MPV 9.4 (7.4-10.4) fL Immature Gran % (Auto) 0.3 % Neut % (Auto) 77.2 % Lymph % (Auto) 12.1 % [place] % (Auto) 7.9 % Eos % (Auto) 2.1 % Baso % (Auto) 0.4 % Immature Gran # (Auto) 0.04 H (0.00-0.02) K/uL Neut # (Auto) 10.83 H (1.4-6.5) K/uL Lymph # (Auto) 1.69 (1.2-3.4) K/uL [place] # (Auto) 1.10 H (0.11-0.59) K/uL Eos # (Auto) 0.29 (0-0.5) K/uL Baso # (Auto) 0.06 (0-0.2) K/uL PT (9.0-12.0) Seconds INR (0.9-1.1) APTT (21.0-31.0) Seconds PTT Ratio D-Dimer 9340 H* (0-500) ug/L FEU Sodium 140 (136-145) mmol/L Potassium (3.5-5.1) mmol/L Chloride 107 (98-107) mmol/L Carbon Dioxide 28 (21-32) mmol/L Anion Gap 5.0 (3-11) BUN 20 H (7-18) mg/dl Creatinine 0.88 (0.6-1.4) mg/dl Est Cr Clr Drug Dosing 78.3 ml/min Est GFR ( Amer) 99.5 Est GFR (Non-Af Amer) 85.8 BUN/Creatinine Ratio 23.0 H (10-20) Glucose 153 H (70-99) mg/dl Calcium 8.5 (8.5-10.1) mg/dl Total Bilirubin 0.6 (0.2-1) mg/dl AST (15-37) U/L ALT 45 (12-78) U/L Alkaline Phosphatase 85 (45-117) U/L Troponin I < 0.015 (0-0.045) ng/ml Total Protein 6.4 (6.4-8.2) gm/dl Albumin 2.3 L (3.4-5.0) gm/dl Globulin 4.1 H (2.5-4.0) gm/dl Albumin/Globulin Ratio 0.6 L (0.9-2) Lipase 199 (73-393) U/L 06/07/19 Range/Units 05:11 WBC (4.8-10.8) K/uL RBC (4.7-6.1) M/uL Hgb (14.0-18.0) g/dL Hct (42-52) % MCV (80-100) fL MCH (25-34) pg MCHC (32-36) g/dL RDW Std Deviation (36.4-46.3) fL RDW Coeff of Araceli (11.5-14.5) % Plt Count (130-400) K/uL MPV (7.4-10.4) fL Immature Gran % (Auto) % Neut % (Auto) % Lymph % (Auto) % [place] % (Auto) % Eos % (Auto) % Baso % (Auto) % Immature Gran # (Auto) (0.00-0.02) K/uL Neut # (Auto) (1.4-6.5) K/uL Lymph # (Auto) (1.2-3.4) K/uL [place] # (Auto) (0.11-0.59) K/uL Eos # (Auto) (0-0.5) K/uL Baso # (Auto) (0-0.2) K/uL PT 10.5 (9.0-12.0) Seconds INR 1.0 (0.9-1.1) APTT 25.4 (21.0-31.0) Seconds PTT Ratio 0.9 D-Dimer (0-500) ug/L FEU Sodium (136-145) mmol/L Potassium (3.5-5.1) mmol/L Chloride (98-107) mmol/L Carbon Dioxide (21-32) mmol/L Anion Gap (3-11) BUN (7-18) mg/dl Creatinine (0.6-1.4) mg/dl Est Cr Clr Drug Dosing ml/min Est GFR ( Amer) Est GFR (Non-Af Amer) BUN/Creatinine Ratio (10-20) Glucose (70-99) mg/dl Calcium (8.5-10.1) mg/dl Total Bilirubin (0.2-1) mg/dl AST (15-37) U/L ALT (12-78) U/L Alkaline Phosphatase (45-117) U/L Troponin I (0-0.045) ng/ml Total Protein (6.4-8.2) gm/dl Albumin (3.4-5.0) gm/dl Globulin (2.5-4.0) gm/dl Albumin/Globulin Ratio (0.9-2) Lipase (73-393) U/L Imaging Data Attestation: I personally reviewed and interpreted this imaging study as follows: My Impression: Chest x-ray showed no pulmonary infiltrate, no cardiomegaly, no pneumothorax Radiologist's Impression: Radiology results as stated below per my review and the radiologist's interpretation: CTA CHEST: Subsegmental right lower PE. ECG Data Attestation: I personally reviewed and interpreted this ECG as follows: Indication: chest pain and SOB/dyspnea Rate (beats per minute): 87 Rhythm: normal sinus Findings: + other (no ischemia); no ectopy Blood Pressure Blood Pressure Findings: Normal blood pressure Blood Pressure Disposition: further management by hospitalist MDM Narrative The patient is a 73 y/o male who presents to the emergency department for evaluation of sudden onset chest tightness and shortness of breath prior to arrival. Patient had a d-dimer greater than 9000. CT scan chest showed subsegmental PE in the right lung. Patient had a normal-appearing EKG and a negative troponin. The patient did have episodes of hypoxia and was placed on supplemental oxygen. He is hemodynamically stable at this time. Heparin drip was started the patient will be evaluated by the [facility] Hospitalist service. Impression & Plan Pulmonary embolism Discharge Plan Visit Data Chief Complaint: Cardiac Assessment Stated Complaint: CHEST HEAVINESS ED Provider: Carlota Peres Discharge Problem: Pulmonary embolism Patient Disposition: Being Evaluated by Hospitalist Forms Stand Alone Forms: My [facility] Prescriptions Prescriptions: No Action metformin 500 mg Tablet 500 mg PO AMPM RF: 0 aspirin 325 mg Tablet,Delayed Release (Dr/Ec) 325 mg PO QAM RF: 0 levetiracetam 750 mg Tablet 1,500 mg PO AMHS RF: 0 ezetimibe [Zetia] 10 mg Tablet 10 mg PO QPM RF: 0 Men's 50 Plus Multivitamin 400-20-370 mcg Tablet 1 tab PO QAM RF: 0 lisinopril 20 mg tablet 20 mg PO AMHS RF: 0 pantoprazole [Protonix] 40 mg tablet,delayed release (DR/EC) 40 mg PO QAM RF: 0 acetaminophen [Tylenol] 325 mg Tablet 650 mg PO Q4 MDD 3g/24hr PRN (Reason: Fever Or Pain) RF: 0 triamcinolone acetonide 0.1 % Cream 1 applic TOPICAL BID RF: 0 Referrals Referrals: Raul Benitez MD [Primary Care Provider] - Discharge Problem: Pulmonary embolism Qualifiers: Pulmonary embolism type: unspecified Chronicity: acute Acute cor pulmonale presence: without acute cor pulmonale Qualified Code(s): I26.99 - Other pulmonary embolism without acute cor pulmonale The scribe's documentation has been prepared under my direction and personally r eviewed by me in its entirety. I confirm that the note above accurately reflects all work, treatment, procedures, and medical decision making performed by me.
--- NOTE | 2018-09-06 07:17 | CT Scan Report ---
CHEST CTA for PULMONARY ARTERIES CT DOSE: 358.84 mGy.cm HISTORY: Elevated d-dimer. Short of breath. TECHNIQUE: Multiaxial CT images of the chest were performed following the intravenous administration of contrast to evaluate the pulmonary arteries. Maximal intensity projection images were also obtaine d. A dose lowering technique was utilized adhering to the principles of ALARA. COMPARISON STUDY: Abdomen and pelvis CT 08/28/2018. FINDINGS: Small foci of gas and fluid at the gallbladder fossa consistent with recent cholecystectomy . There is also trace pneumobilia. The visualized spleen is unremarkable. Multiple bilateral segmenta l and subsegmental pulmonary emboli. There is also nonocclusive thrombus within the right upper lobe pulmonary artery. Approximately 50% focal stenosis of the proximal left subclavian artery due to the atherosclerotic plaque. Normal caliber thoracic aorta with no evidence for dissection. The heart is t op normal in size. No evidence for right-sided heart strain. No pleural or pericardial effusions. Nor mal esophagus. No mediastinal or hilar lymphadenopathy. No suspicious lytic or blastic osseous lesion s. No pneumothorax. Patchy densities within the lungs posteriorly favor atelectasis. Otherwise, no fo lyudmila lung consolidations to suggest pneumonia. The central airways are patent. IMPRESSION: 1. Multiple bilateral pulmonary emboli. No evidence for right-sided heart strain. 2. Recent cholecystectomy. Electronically signed by: Juliano Pulido M.D. 09/06/2018 7:16 AM
[2018-09-06] MEDS ORDERED: POLYETHYLENE (MIRALAX) 17 GM PACK PO PRN (07:59)
[2018-09-06] MEDS ORDERED: CARBOHYDRATES FOR HYPOGLYCEMIA PO PRN (07:59)
[2018-09-06] MEDS ORDERED: ACETAMINOPHEN 325 MG TAB PO PRN ×2 (07:59→09:51)
[2018-09-06] MEDS ORDERED: GLUCOSE 10 TABS/TUBE PO PRN (07:59)
[2018-09-06] MEDS ORDERED: GLUCOSE 40% GEL 15 GM TUBE PO PRN (07:59)
[2018-09-06] MEDS ORDERED: DEXTROSE 50% 50 ML SYRINGE IV PRN (07:59)
[2018-09-06] MEDS ORDERED: GLUCAGON FOR INJ 1 MG VIAL SQ PRN (07:59)
[2018-09-06] MEDS ORDERED: ONDANSETRON INJ 2 MG/ML 2 ML VIAL IV PRN (07:59)
--- NOTE | 2018-09-06 09:06 | History & Physical Report ---
Date of Service September 06, 2018 Assessment & Plan (1) Pulmonary embolism: BILATERAL MULTIPLE PULMONARY EMBOLISM Presented with lower chest pain, SOB since 2 AM today. CTA- B/L multiple pulmonary embolism Risk factors- Postoperative status with complication, prolonged hospital course, Immobilization. -SaO2 91% on RA, Hemodynamically stable -Held ASA 325 mg which he was taking for CVA -IV Heparin drip started in ED. Continue with IV Heparin. Decision for Coumadin vs NOAC to be made. Discussed with patient//daughter about risks and benefits of coumadin/NOAC- bleeding risk. No antidote for NOAC. Discussed with Dr Osborn, surgeon as well- do not anticipate any surgeries, no prior bleeding issues. Leaning towards NOAC. -Work up ordered- US duplex, Echocardiogram RECENT LAP CHOLECYSTECTOMY / BILIARY STENT PLACEMENT -Indication: Acute gangrenous/necrotizing cholecystitis -Surgery- 1. Lap cholecystectomy on 08/20/2018 # POD 17; 2. ERCP with biliary sphincterectomy and stent placement on 08/21/2018 - POD # 18 -Post operative course- Complicated by Bile leak requiring ERCP with stent placement on 08/21 -Developed sepsis with CT scan questionable abscess - responded to conservative mx with broad-spectrum IV antibioticsFlagyl/Zosyn. Completed 14-day course of Zosyn. -No acute issues currently- Mild abd discomfort with no pain, no nausea, vomiting. -Leucocytosis slightly up -Updated gen surgery about current admission who will see him -Outpatient plan: 09/30/18- Scheduled Appt for Biliary stent removal HYPERTENSION Stable -Continue with lisinopril 20 mg twice daily which was started during last admission -Monitor HX OF STROKE -Was on ASA 325 mg which was restarted on discharge on 09/04/18 and held prior to that post op/ERCP -Hold ASA as starting on IV Heparin/Bridging DM -II -HBA1C 7.5 -ISS, Accuchecks -Hold Metformin SEIZURE DISORDER -Continue with keppra 1500 mg PO BID GERD -Continue with protonix DVT PROPHYLAXIS IV Heparin drip CODE STATUS DNR/DNI per patient DISPOSITION Medication mx in progress Expected discharge back to [facility] once stable for rehab PT/OT ordered Updated family - , daughter by bedside. Discussed case with Dr Osborn and updated him about current findings History of Present Illness Primary Care Provider: Raul Benitez MD Patient is a 73-year-old male with history of CVA, seizure disorder, hypertension, type 2 diabetes mellitus, comes to ED from [facility] for chest pain/shortness of breath since 2 AM today. Patient was in the hospital from 08/19/2018 to 09/04/2018 for acute gangrenous/necrotizing cholecystitis status post laparoscopic cholecystectomy on 08/20/[address] Osborn. Complicated by biliary leak for which ERCP with biliary sphincterectomy, stent was placed on 08/21/2018 by GI. Postoperatively developed sepsis with CT scan abdomen showing questionable abscess which was conservatively managed with IV antibiotics. Patient improved on IV Zosyn, Flagyl. Received IV Zosyn for 14 days. Plan was for stent removal in 4 to 6 weeks with follow-up appointment on September 30. Aspirin 325 mg was restarted on discharge. Since discharge patient was doing well with minimal abdominal discomfort, no nausea or vomiting. Participating with physical therapy from out of bed to chair/few steps to and fro bathroom with assistance. Today morning around 2 AM while he was at [facility] he developed lower chest pain, sharp associated with shortness of breath which brought him to the ED. CT scan chest shows bilateral multiple pulmonary embolism without right heart strain. Saturating 91% on room air, not tachycardic. Denies any cough, fever, chills, leg swelling, significant abdominal pain, nausea, vomiting, headaches. No prior history of GI bleeding or recent active bleeding. No prior history of DVT or PE. IV heparin was started in the ED. We will admit the patient to telemetry for bilateral PE for further evaluation and management. Allergies Allergy/AdvReac Type Severity Reaction Status Date / Time lactose AdvReac Intermediate GI SYMPTOMS Verified 09/06/18 04:21 Btdnogv-Jaq-Lly Reductase AdvReac Unknown MUSCLE Verified 09/06/18 04:21 Inhibitor CRAMPS Home Medications Home Medications Medication Instructions Recorded Confirmed Type aspirin 325 mg PO QAM 12/17/17 09/06/18 History ezetimibe [Zetia] 10 mg PO QPM 12/17/17 09/06/18 History levetiracetam 1,500 mg PO AMHS 12/17/17 09/06/18 History metformin 500 mg PO AMPM 12/17/17 09/06/18 History Men's 50 Plus Multivitamin 1 tab PO QAM 08/19/18 09/06/18 History acetaminophen [Tylenol] 650 mg PO Q4 PRN MDD 3g/24hr 09/06/18 09/06/18 History lisinopril 20 mg PO AMHS 09/06/18 09/06/18 History pantoprazole [Protonix] 40 mg PO QAM 09/06/18 09/06/18 History triamcinolone acetonide 1 applic TOPICAL BID 09/06/18 09/06/18 History Past Med/Surg History Medical History PAD (peripheral artery disease) History of stroke 5 years ago, residual CANNOT USE LEFT ARM - IN SLING; LEFT LEG WEAK - USES YEN WALKER HTN (hypertension) Diabetes (Chronic) Abdominal pain PER - CURRENTLY AN INPATIENT AND AAWAITING TRANSFER TO [facility] History of fall Hx of seizure disorder Hypokalemia Surgical History History of appendectomy (Resolved) H/O umbilical hernia repair History of common carotid artery stent placement PER - [facility] [place] 2013 History of laparoscopic cholecystectomy 08/20/18 Gabriel 2 gr 1 Family History Other No significant family history Social History Preferred Language: [place] Communication Ability: Effective Beliefs That Will Affect Care: None marital status: Current Living Situation: Spouse Feels Safe at Home: Yes Smoking Status: Former smoker Second Hand Exposure: No Hx Alcohol Use: No Hx Substance Use: No Review of Systems Review of Systems: All systems reviewed & are unremarkable except as noted in HPI & below Negative except mentioned in the HPI Results & Data Vital Signs (Past 12 Hours) Vital Signs Temp Pulse Resp BP Pulse Ox 09/06/18 07:30 82 17 98 09/06/18 07:00 80 18 122/73 98 09/06/18 06:30 83 20 92 09/06/18 06:06 84 16 94 09/06/18 05:30 84 16 135/68 90 09/06/18 05:00 86 18 121/63 96 09/06/18 04:51 89 L 09/06/18 04:35 94 09/06/18 04:30 87 17 127/69 92 09/06/18 04:19 89 16 92 09/06/18 04:17 89 17 146/71 H 93 09/06/18 04:14 37.1 C 86 17 146/71 H 92 (1) Pulmonary embolism Acute cor pulmonale presence: without acute cor pulmonale Chronicity: acute Pulmonary embolism type: unspecified Qualified Code(s): I26.99 - Other pulmonary embolism without acute cor pulmonale
[2018-09-06] MEDS ORDERED: Heparin IV Standard *NO* Bolus IV SCH (09:51)
[2018-09-06] MEDS: PANTOprazole 40 MG TAB PO SCH (11:07)
[2018-09-06] MEDS: levETIRAcetam 500 MG TAB PO SCH ×2 (11:07→21:15)
[2018-09-06] MEDS: TRIAMCINOLONE ACET 0.1% CR 15 GM TUBE TOP SCH ×2 (11:07→21:15)
[2018-09-06] MEDS: CEROVITE ADV FORMULA TAB PO SCH (11:07)
[2018-09-06] MEDS: LISINOPRIL 20 MG TAB PO SCH ×2 (11:07→21:12)
[2018-09-06] MEDS: Heparin Adult STANDARD Wt-Based Dextrose 5% 25,000 units/500 mL IV SCH (11:25)
[2018-09-06] MEDS: INSULIN ASPART 100 UNITS/ML 3 ML PEN SC SCH ×3 (12:15→21:17)
[2018-09-06 13:43] LABS: Partial Thromboplastin Ratio 1.4; Partial Thromboplastin Time 38.2 Seconds (21.0-31.0)
[2018-09-06] MEDS ORDERED: HEPARIN IV BOLUS 6,000 UNITS in SYRINGE 0 ML IV ONE (14:15)
--- NOTE | 2018-09-06 16:39 | Surgery Consultation ---
Date of Consultation September 06, 2018 Assessment & Plan (1) Bile leak, postoperative: Patient is status post laparoscopic cholecystectomy with bile leak status post ERCP. From an abdominal standpoint he is doing well. He is eating and his bowels are moving. There is no evidence of intra-abdominal problem at the present time. He was admitted with pulmonary emboli. He is on heparin and the medicine team is managing that. There is no indication for any surgical intervention at this time. Thank you for allowing me to see this patient. I will sign off but let me know if there is anything else that we can do to help. History of Present Illness Requesting Physician: Consuelo Franz Attending Physician: Consuelo Franz History of Present Illness I have been asked by Dr. Franz to see this 73-year-old male who is known to me. Last week he was admitted with acute gangrenous cholecystitis. He underwent a laparoscopic cholecystectomy developed a bile leak afterwards. He underwent an ERCP with placement of a stent developed some mild pancreatitis. He was eventually able to be discharged 2 days ago however this morning he developed shortness of breath and chest pain. He was brought to the emergency room where it a chest CTA demonstrated bilateral pulmonary emboli. He no longer has the shortness of breath. He has no abdominal pain. He has been eating although his appetite is not returned to preoperative levels. He is moving his bowels. The stool is formed. He had had some diarrhea but that is resolved. He denies melena and hematochezia. The [employer] has been putting out minimal serosanguineous fluid. Allergies Allergy/AdvReac Type Severity Reaction Status Date / Time lactose AdvReac Intermediate GI SYMPTOMS Verified 09/06/18 04:21 Xemtmyq-Sxh-Zvo Reductase AdvReac Unknown MUSCLE Verified 09/06/18 04:21 Inhibitor CRAMPS Home Medications Home Medications Medication Instructions Recorded Confirmed Type aspirin 325 mg PO QAM 12/17/17 09/06/18 History ezetimibe [Zetia] 10 mg PO QPM 12/17/17 09/06/18 History levetiracetam 1,500 mg PO AMHS 12/17/17 09/06/18 History metformin 500 mg PO AMPM 12/17/17 09/06/18 History Men's 50 Plus Multivitamin 1 tab PO QAM 08/19/18 09/06/18 History acetaminophen [Tylenol] 650 mg PO Q4 PRN MDD 3g/24hr 09/06/18 09/06/18 History lisinopril 20 mg PO AMHS 09/06/18 09/06/18 History pantoprazole [Protonix] 40 mg PO QAM 09/06/18 09/06/18 History rivaroxaban [Xarelto] 15 mg PO BID 21 Days #42 tab 09/06/18 Rx triamcinolone acetonide 1 applic TOPICAL BID 09/06/18 09/06/18 History Patient History Medical History PAD (peripheral artery disease) History of stroke 5 years ago, residual CANNOT USE LEFT ARM - IN SLING; LEFT LEG WEAK - USES [employer] HTN (hypertension) Diabetes (Chronic) Abdominal pain PER - CURRENTLY AN INPATIENT AND AAWAITING TRANSFER TO [facility] History of fall Hx of seizure disorder Hypokalemia Surgical History History of appendectomy (Resolved) H/O umbilical hernia repair History of common carotid artery stent placement PER - RIGHT SIDED [facility] 2013 History of laparoscopic cholecystectomy 08/20/18 Gabriel 2 gr 1 Family History Other No significant family history Social History Preferred Language: Maltese Communication Ability: Effective Joint Cutter Machine Required: No Beliefs That Will Affect Care: None marital status: Current Living Situation: Rehab Other Information That Helps Us Care for You: No Feels Safe at Home: Yes Safety Concerns: Feels Safe At This Time Smoking Status: Former smoker Do You Dip or Chew Tobacco: No Second Hand Exposure: No Tobacco Cessation Education Requested by Patient: No Hx Alcohol Use: No Hx Substance Use: No Physical Exam Constitutional: well developed; no acute distress Respiratory: normal respiratory effort, lungs clear to auscultation Cardiovascular: Rate/Rhythm: regular rate and regular rhythm Gastrointestinal (Abdomen): Inspection/Auscultation: normal bowel sounds; abdomen not distended Percussion/Palpation: abdomen soft; abdomen nontender Results & Data Vital Signs (Past 12 Hours) Vital Signs Temp Pulse Pulse Resp BP BP Pulse Ox 09/06/18 15:41 37.2 C 61 18 133/70 91 09/06/18 11:28 36.9 C 90 18 117/66 97 09/06/18 09:30 83 19 91 09/06/18 09:00 87 18 136/71 92 09/06/18 08:43 88 17 107/69 93 09/06/18 08:30 81 16 97 09/06/18 08:00 81 18 98 09/06/18 07:30 82 17 98 09/06/18 07:00 80 18 122/73 98 09/06/18 06:30 83 20 92 09/06/18 06:06 84 16 94 09/06/18 05:30 84 16 135/68 90 09/06/18 05:00 86 18 121/63 96 09/06/18 04:51 89 L Laboratory Results 09/06/18 09/06/18 09/06/18 Range/Units 13:03 11:36 05:11 WBC (4.8-10.8) K/uL RBC (4.7-6.1) M/uL Hgb (14.0-18.0) g/dL Hct (42-52) % MCV (80-100) fL MCH (25-34) pg MCHC (32-36) g/dL RDW Std Deviation (36.4-46.3) fL RDW Coeff of Araceli (11.5-14.5) % Plt Count (130-400) K/uL MPV (7.4-10.4) fL Immature Gran % (Auto) % Neut % (Auto) % Lymph % (Auto) % [place] % (Auto) % Eos % (Auto) % Baso % (Auto) % Immature Gran # (Auto) (0.00-0.02) K/uL Neut # (Auto) (1.4-6.5) K/uL Lymph # (Auto) (1.2-3.4) K/uL [facility] # (Auto) (0.11-0.59) K/uL Eos # (Auto) (0-0.5) K/uL Baso # (Auto) (0-0.2) K/uL PT 10.5 (9.0-12.0) Seconds INR 1.0 (0.9-1.1) APTT 38.2 H 25.4 (21.0-31.0) Seconds PTT Ratio 1.4 0.9 D-Dimer (0-500) ug/L FEU Sodium (136-145) mmol/L Potassium (3.5-5.1) mmol/L Chloride (98-107) mmol/L Carbon Dioxide (21-32) mmol/L Anion Gap (3-11) BUN (7-18) mg/dl Creatinine (0.6-1.4) mg/dl Est Cr Clr Drug Dosing ml/min Est GFR ( Amer) Est GFR (Non-Af Amer) BUN/Creatinine Ratio (10-20) Glucose (70-99) mg/dl POC Glucose 132 H (70-99) Calcium (8.5-10.1) mg/dl Total Bilirubin (0.2-1) mg/dl AST (15-37) U/L ALT (12-78) U/L Alkaline Phosphatase (45-117) U/L Troponin I (0-0.045) ng/ml Total Protein (6.4-8.2) gm/dl Albumin (3.4-5.0) gm/dl Globulin (2.5-4.0) gm/dl Albumin/Globulin Ratio (0.9-2) Lipase (73-393) U/L 09/06/18 09/06/18 09/06/18 Range/Units 05:11 04:30 04:30 WBC 14.01 H (4.8-10.8) K/uL RBC 3.87 L (4.7-6.1) M/uL Hgb 12.0 L (14.0-18.0) g/dL Hct 35.6 L (42-52) % MCV 92.0 (80-100) fL MCH 31.0 (25-34) pg MCHC 33.7 (32-36) g/dL RDW Std Deviation 45.8 (36.4-46.3) fL RDW Coeff of Araceli 13.7 (11.5-14.5) % Plt Count 484 H (130-400) K/uL MPV 9.4 (7.4-10.4) fL Immature Gran % (Auto) 0.3 % Neut % (Auto) 77.2 % Lymph % (Auto) 12.1 % [facility] % (Auto) 7.9 % Eos % (Auto) 2.1 % Baso % (Auto) 0.4 % Immature Gran # (Auto) 0.04 H (0.00-0.02) K/uL Neut # (Auto) 10.83 H (1.4-6.5) K/uL Lymph # (Auto) 1.69 (1.2-3.4) K/uL [facility] [place] # (Auto) 1.10 H (0.11-0.59) K/uL Eos # (Auto) 0.29 (0-0.5) K/uL Baso # (Auto) 0.06 (0-0.2) K/uL PT (9.0-12.0) Seconds INR (0.9-1.1) APTT (21.0-31.0) Seconds PTT Ratio D-Dimer 9340 H* (0-500) ug/L FEU Sodium 140 (136-145) mmol/L Potassium (3.5-5.1) mmol/L Chloride 107 (98-107) mmol/L Carbon Dioxide 28 (21-32) mmol/L Anion Gap 5.0 (3-11) BUN 20 H (7-18) mg/dl Creatinine 0.88 (0.6-1.4) mg/dl Est Cr Clr Drug Dosing 78.3 ml/min Est GFR ( Amer) 99.5 Est GFR (Non-Af Amer) 85.8 BUN/Creatinine Ratio 23.0 H (10-20) Glucose 153 H (70-99) mg/dl POC Glucose (70-99) Calcium 8.5 (8.5-10.1) mg/dl Total Bilirubin 0.6 (0.2-1) mg/dl AST (15-37) U/L ALT 45 (12-78) U/L Alkaline Phosphatase 85 (45-117) U/L Troponin I < 0.015 (0-0.045) ng/ml Total Protein 6.4 (6.4-8.2) gm/dl Albumin 2.3 L (3.4-5.0) gm/dl Globulin 4.1 H (2.5-4.0) gm/dl Albumin/Globulin Ratio 0.6 L (0.9-2) Lipase 199 (73-393) U/L Diagnostic Findings [facility] [place] [phone] CT Scan Report Patient: BERENICE MIRANDA Date: 09/06/18 MR#: [id number]: [address] Acct ID:[id number]: Date: 1945ity Zip: [place] [id number] Age: 73Location: ED Sex: M Room/Bed: Att Phy: Diagnosis: CHEST HEAVINESS Yahaira Phy: Raul Benitez MDService Date: 09/06/18 Fam Phy: Raul Benitez MDInterpreting Phy: Juliano Pulido MD Admit Phy: Ordering Phy: Carlota Peres D.O. cc: ~ CHEST CTA for PULMONARY ARTERIES CT DOSE: 358.84 mGy.cm HISTORY: Elevated d-dimer. Short of breath. TECHNIQUE: Multiaxial CT images of the chest were performed following the intravenous administration of contrast to evaluate the pulmonary arteries. Maximal intensity projection images were also obtained. A dose lowering technique was utilized adhering to the principles of ALARA. COMPARISON STUDY: Abdomen and pelvis CT 08/28/2018. FINDINGS: Small foci of gas and fluid at the gallbladder fossa consistent with recent cholecystectomy. There is also trace pneumobilia. The visualized spleen is unremarkable. Multiple bilateral segmental and subsegmental pulmonary emboli. There is also nonocclusive thrombus within the right upper lobe pulmonary artery. Approximately 50% focal stenosis of the proximal left subclavian artery due to the atherosclerotic plaque. Normal caliber thoracic aorta with no evidence for dissection. The heart is top normal in size. No evidence for right- sided heart strain. No pleural or pericardial effusions. Normal esophagus. No mediastinal or hilar lymphadenopathy. No suspicious lytic or blastic osseous lesions. No pneumothorax. Patchy densities within the lungs posteriorly favor atelectasis. Otherwise, no focal lung consolidations to suggest pneumonia. The central airways are patent. IMPRESSION: 1. Multiple bilateral pulmonary emboli. No evidence for right-sided heart strain. 2. Recent cholecystectomy.
[2018-09-06 21:02] LABS: Partial Thromboplastin Ratio 2.7
[2018-09-06] MEDS: EZETIMIBE 10 MG TABLET PO SCH (21:15)
[2018-09-07] MEDS: Heparin Adult STANDARD Wt-Based Dextrose 5% 25,000 units/500 mL IV SCH ×2 (02:34→17:58)
[2018-09-07 03:34] LABS: Basophils # (auto) 0.05 K/uL (0-0.2); Basophils % (auto) 0.5 %; Eosinophils # (auto) 0.53 K/uL (0-0.5); Eosinophils % (auto) 4.9 %; Hematocrit (blood only) 35.1 % (42-52); Hemoglobin 11.8 g/dL (14.0-18.0); Immature Granulocytes # (auto) 0.03 K/uL (0.00-0.02); Immature Granulocytes % (auto) 0.3 %; Lymphocytes # (auto) 1.98 K/uL (1.2-3.4); Lymphocytes % (auto) 18.2 %; Mean Corpuscular Hgb Conc 33.6 g/dL (32-36); Mean Corpuscular Volume 90.5 fL (80-100); Mean Platelet Volume 9.4 fL (7.4-10.4); Monocytes # (auto) 1.04 K/uL (0.11-0.59); Monocytes % (auto) 9.6 %; Neutrophils # (auto) 7.24 K/uL (1.4-6.5); Neutrophils % (auto) 66.5 %; Platelet Count 488 K/uL (130-400); RDW Coefficient of Variation 13.4 % (11.5-14.5); RDW Standard Deviation 44.2 fL (36.4-46.3); Red Blood Count 3.88 M/uL (4.7-6.1); White Blood Count 10.87 K/uL (4.8-10.8)
[2018-09-07 03:52] LABS: BUN Creatinine Ratio 21.8 (10-20); Calcium 8.7 mg/dl (8.5-10.1); Creatinine Clr Calc Pharmacy 104.5 ml/min; Est GFR (African American) 111.9; Est GFR (Non-African American) 96.6; Potassium 3.4 mmol/L (3.5-5.1)
[2018-09-07 03:58] LABS: Partial Thromboplastin Ratio 2.2
[2018-09-07 03:59] LABS: Partial Thromboplastin Time 59.1 Seconds (21.0-31.0)
[2018-09-07] MEDS ORDERED: POTASSIUM CHLORIDE 20 MEQ TABCR PO STA (05:22)
[2018-09-07 05:32] LABS: Magnesium 1.8 mg/dl (1.8-2.4)
[2018-09-07] MEDS ORDERED: MAGNESIUM SULFATE / D5W 1 GM/100 ML BAG IV ONE (07:15)
[2018-09-07] MEDS: levETIRAcetam 500 MG TAB PO SCH ×2 (07:52→20:31)
[2018-09-07] MEDS: CEROVITE ADV FORMULA TAB PO SCH (07:52)
[2018-09-07] MEDS: LISINOPRIL 20 MG TAB PO SCH ×2 (07:52→20:31)
[2018-09-07] MEDS: PANTOprazole 40 MG TAB PO SCH (07:52)
[2018-09-07] MEDS: TRIAMCINOLONE ACET 0.1% CR 15 GM TUBE TOP SCH ×2 (07:52→20:30)
[2018-09-07] MEDS: INSULIN ASPART 100 UNITS/ML 3 ML PEN SC SCH ×4 (08:19→20:33)
--- NOTE | 2018-09-07 11:30 | Hospitalist Progress Note ---
Date of Service September 07, 2018 Assessment & Plan (1) Pulmonary embolism: BILATERAL MULTIPLE PULMONARY EMBOLISM Presented with lower chest pain, SOB since 2 AM day of admission CTA- B/L multiple pulmonary embolism Risk factors- Postoperative status with complication, prolonged hospital course, Immobilization. -SaO2 91% on RA, Hemodynamically stable -Held ASA 325 mg which he was taking for CVA -IV Heparin drip started in ED. Continue with IV Heparin. Discussed with patient//daughter about risks and benefits of coumadin/NOAC- bleeding risk. No antidote for NOAC. Discussed with Dr Osborn, surgeon as well- do not anticipate any surgeries, no prior bleeding issues. Leaning towards NOAC. -Work up ordered- US duplex- ordered. Had Echo recently on 08/20/18- so will not repeat christina with no strain noted. RECENT LAP CHOLECYSTECTOMY / BILIARY STENT PLACEMENT -Indication: Acute gangrenous/necrotizing cholecystitis -Surgery- 1. Lap cholecystectomy on 08/20/2018 2. ERCP with biliary sphincterectomy and stent placement on 08/21/2018 - -Post operative course- Complicated by Bile leak requiring ERCP with stent placement on 08/21 -Developed sepsis with CT scan questionable abscess - responded to conservative mx with broad-spectrum IV antibioticsFlagyl/Zosyn. Completed 14-day course of Zosyn. -No acute issues currently- Mild abd discomfort with no pain, no nausea, vomiting. -Updated gen surgery about current admission who will see him -Outpatient plan: 09/30/18- Scheduled Appt for Biliary stent removal HYPERTENSION Stable -Continue with lisinopril 20 mg twice daily which was started during last admission -Monitor HX OF STROKE -Was on ASA 325 mg which was restarted on discharge on 09/04/18 and held prior to that post op/ERCP -Hold ASA as starting on IV Heparin/Bridging DM -II -HBA1C 7.5 -ISS, Accuchecks -Hold Metformin SEIZURE DISORDER -Continue with keppra 1500 mg PO BID GERD -Continue with protonix DVT PROPHYLAXIS IV Heparin drip CODE STATUS DNR/DNI per patient DISPOSITION Medication mx in progress Expected discharge back to [facility] once stable for rehab PT/OT ordered Updated family - , daughter Subjective Patient is doing well. Denies any chest pain, SOB. No fever, chills, No abd pain, nausea, vomiting. Tolerating PO diet Physical Exam Physical Exam: GENERAL- AAOX3, No acute distress, Deconditioned LUNGS- Air entry bilaterally decreased. No rales, rhonchi, crackles, wheezes heard. HEART- Regular rate and rhythm. No murmurs ABDOMEN- S/P Lap cholecystectomy, Soft, non tender, non distended, Bowel sounds heard. EXTREMITIES- Good peripheral pulses, no edema Results & Data Vital Signs (Past 12 Hours) Vital Signs Temp Pulse Pulse Resp BP Pulse Ox 09/07/18 08:00 79 09/07/18 07:47 36.8 C 77 18 135/72 92 09/07/18 03:37 36.6 C 78 18 137/73 96 (1) Pulmonary embolism Acute cor pulmonale presence: without acute cor pulmonale Chronicity: acute Pulmonary embolism type: unspecified Qualified Code(s): I26.99 - Other pulmonary embolism without acute cor pulmonale
--- NOTE | 2018-09-07 13:13 | Ultrasound Report ---
US venous doppler LE BI CLINICAL HISTORY: 73 years-old Male presenting with PE, evaluate for DVT. TECHNIQUE: Real-time grayscale and color and spectral Doppler ultrasound imaging of the veins of the bilateral lower extremities was performed. Compression and augmentation were also utilized. COMPARISON: CTA chest from 09/06/2018. FINDINGS: RIGHT: Common femoral vein: Patent. Greater saphenous vein (superficial): Patent. Deep femoral vein: Patent. Femoral vein: Patent. Popliteal vein: Patent. Calf veins: Patent. LEFT: Common femoral vein: Patent. Greater saphenous vein (superficial): Patent. Deep femoral vein: Patent. Femoral vein: Patent. Popliteal vein: Patent. Calf veins: Patent. Other: None. IMPRESSION: No evidence of deep venous thrombosis. Electronically signed by: Melvin Glover M.D. 09/07/2018 1:11 PM
[2018-09-07] MEDS: EZETIMIBE 10 MG TABLET PO SCH (21:23)
[2018-09-08 05:14] LABS: Basophils # (auto) 0.07 K/uL (0-0.2); Basophils % (auto) 0.9 %; Eosinophils # (auto) 0.56 K/uL (0-0.5); Eosinophils % (auto) 7.3 %; Hemoglobin 11.7 g/dL (14.0-18.0); Immature Granulocytes # (auto) 0.03 K/uL (0.00-0.02); Immature Granulocytes % (auto) 0.4 %; Lymphocytes # (auto) 1.56 K/uL (1.2-3.4); Lymphocytes % (auto) 20.3 %; Mean Corpuscular Hgb Conc 33.4 g/dL (32-36); Mean Platelet Volume 9.7 fL (7.4-10.4); Monocytes # (auto) 0.97 K/uL (0.11-0.59); Monocytes % (auto) 12.6 %; Neutrophils % (auto) 58.5 %; Platelet Count 463 K/uL (130-400); RDW Coefficient of Variation 13.4 % (11.5-14.5); RDW Standard Deviation 44.2 fL (36.4-46.3); Red Blood Count 3.89 M/uL (4.7-6.1); White Blood Count 7.69 K/uL (4.8-10.8)
[2018-09-08 05:35] LABS: Calcium 8.6 mg/dl (8.5-10.1); Creatinine Clr Calc Pharmacy 84.7 ml/min; Est GFR (African American) 106.8; Est GFR (Non-African American) 92.2; Potassium 3.6 mmol/L (3.5-5.1)
[2018-09-08 05:37] LABS: Partial Thromboplastin Time 53.4 Seconds (21.0-31.0)
[2018-09-08] MEDS: CEROVITE ADV FORMULA TAB PO SCH (07:52)
[2018-09-08] MEDS: LISINOPRIL 20 MG TAB PO SCH (07:52)
[2018-09-08] MEDS: PANTOprazole 40 MG TAB PO SCH (07:52)
[2018-09-08] MEDS: TRIAMCINOLONE ACET 0.1% CR 15 GM TUBE TOP SCH (07:52)
[2018-09-08] MEDS: INSULIN ASPART 100 UNITS/ML 3 ML PEN SC SCH ×2 (07:53→12:12)
[2018-09-08] MEDS ORDERED: levETIRAcetam ORAL SOLN 100MG/ML PO SCH (09:00)
--- NOTE | 2018-09-08 10:30 | Hospitalist Progress Note ---
Date of Service September 08, 2018 Assessment & Plan (1) Pulmonary embolism: BILATERAL MULTIPLE PULMONARY EMBOLISM Presented with lower chest pain, SOB since 2 AM day of admission CTA- B/L multiple pulmonary embolism Risk factors- Postoperative status with complication, prolonged hospital course, Immobilization. -SaO2 91% on RA, Hemodynamically stable on admission -Held ASA 325 mg which he was taking for CVA as newly started on anticoagulation -IV Heparin drip - therapeutic. Discussed with patient//daughter about risks and benefits of coumadin/NOAC- bleeding risk. No antidote for NOAC. Discussed with Dr Osborn, surgeon as well- do not anticipate any surgeries, no prior bleeding issues. Leaning towards NOAC. -Started on Xarelto 15 mg PO BID x 21 days (First dose today at 11:00 AM while in hospital) and than 20 mg daily per cr clearance -Work up ordered- US duplex- No DVT . Had Echo recently on 08/20/18- so will not repeat christina with no strain noted. RECENT LAP CHOLECYSTECTOMY / BILIARY STENT PLACEMENT -Indication: Acute gangrenous/necrotizing cholecystitis -Surgery- 1. Lap cholecystectomy on 08/20/2018 2. ERCP with biliary sphincterectomy and stent placement on 08/21/2018 - -Post operative course- Complicated by Bile leak requiring ERCP with stent placement on 08/21 -Developed sepsis with CT scan questionable abscess - responded to conservative mx with broad-spectrum IV antibioticsFlagyl/Zosyn. Completed 14-day course of Zosyn. -No acute issues currently- Mild abd discomfort with no pain, no nausea, vomiting. -Gen surgery evaluated during this admission due to post operative status- doing well. -Outpatient plan: 09/30/18- Scheduled Appt for Biliary stent removal HYPERTENSION Stable -Continue with lisinopril 20 mg twice daily which was started during last admission -Monitor HX OF STROKE -Was on ASA 325 mg which was restarted on discharge on 09/04/18 and held prior to that post op/ERCP -Hold ASA as on IV Heparin/Bridging to xarelto DM -II -HBA1C 7.5 -ISS, Accuchecks -Hold Metformin SEIZURE DISORDER -Continue with keppra 1500 mg PO BID GERD -Continue with protonix DVT PROPHYLAXIS IV Heparin drip CODE STATUS DNR/DNI per patient DISPOSITION Ok to discharge back to [facility] for rehab PT/OT Updated family - , over phone Subjective Patient is doing well. Denies any chest pain, SOB. No fever, chills, No abd pain, nausea, vomiting. Tolerating PO diet well Physical Exam Physical Exam: GENERAL- AAOX3, No acute distress, Deconditioned LUNGS- Air entry bilaterally decreased. No rales, rhonchi, crackles, wheezes heard. HEART- Regular rate and rhythm. No murmurs ABDOMEN- S/P Lap cholecystectomy, Soft, non tender, non distended, Bowel sounds heard. EXTREMITIES- Good peripheral pulses, no edema Results & Data Vital Signs (Past 12 Hours) Vital Signs Temp Pulse Pulse Resp BP Pulse Ox 09/08/18 08:00 36.7 C 75 81 20 128/74 92 09/08/18 04:43 36.7 C 82 18 108/65 92 09/08/18 01:43 81 09/07/18 23:15 36.9 C 88 19 118/64 93 (1) Pulmonary embolism Acute cor pulmonale presence: without acute cor pulmonale Chronicity: acute Pulmonary embolism type: unspecified Qualified Code(s): I26.99 - Other pulmonary embolism without acute cor pulmonale
--- NOTE | 2018-09-08 10:36 | Discharge Summary ---
Date of Service September 08, 2018 Admission HPI Per Admitting Provider Patient is a 73-year-old male with history of CVA, seizure disorder, hypertension, type 2 diabetes mellitus, comes to ED from [facility] for chest pain/shortness of breath since 2 AM today. Patient was in the hospital from 08/19/2018 to 09/04/2018 for acute gangrenous/necrotizing cholecystitis status post laparoscopic cholecystectomy on 08/20/[address] Osborn. Complicated by biliary leak for which ERCP with biliary sphincterectomy, stent was placed on 08/21/2018 by GI. Postoperatively developed sepsis with CT scan abdomen showing questionable abscess which was conservatively managed with IV antibiotics. Patient improved on IV Zosyn, Flagyl. Received IV Zosyn for 14 days. Plan was for stent removal in 4 to 6 weeks with follow-up appointment on September 30. Aspirin 325 mg was restarted on discharge. Since discharge patient was doing well with minimal abdominal discomfort, no nausea or vomiting. Participating with physical therapy from out of bed to chair/few steps to and fro bathroom with assistance. Today morning around 2 AM while he was at [facility] he developed lower chest pain, sharp associated with shortness of breath which brought him to the ED. CT scan chest shows bilateral multiple pulmonary embolism without right heart strain. Saturating 91% on room air, not tachycardic. Denies any cough, fever, chills, leg swelling, significant abdominal pain, nausea, vomiting, headaches. No prior history of GI bleeding or recent active bleeding. No prior history of DVT or PE. IV heparin was started in the ED. We will admit the patient to telemetry for bilateral PE for further evaluation and management. Principal Diagnosis 1. Bilateral pulmonary embolism 2. Recent lap cholecystectomy with biliary stent placement Secondary diagnosis on discharge 1. HTN 2. Hx of stroke 3. DM II 4. Seizure disorder Discharge Exam GENERAL- AAOX3, No acute distress, Deconditioned LUNGS- Air entry bilaterally decreased. No rales, rhonchi, crackles, wheezes heard. HEART- Regular rate and rhythm. No murmurs ABDOMEN- S/P Lap cholecystectomy, Soft, non tender, non distended, Bowel sounds heard. EXTREMITIES- Good peripheral pulses, no edema Discharge Data Allergies Allergy/AdvReac Type Severity Reaction Status Date / Time lactose AdvReac Intermediate GI SYMPTOMS Verified 09/06/18 04:21 Xjymdko-Dtg-Eig Reductase AdvReac Unknown MUSCLE Verified 09/06/18 04:21 Inhibitor CRAMPS Consultations 09/06/18 06:47 ED Decision to Admit Stat 09/06/18 07:59 Consult General Surgery Routine Ordered Studies 09/06/18 05:47 CT angio chest PE protocol Urgent 09/07/18 11:27 US venous doppler LE JHOANA Routine Hospital Course (1) Pulmonary embolism: BILATERAL MULTIPLE PULMONARY EMBOLISM Presented with lower chest pain, SOB since 2 AM day of admission CTA- B/L multiple pulmonary embolism Risk factors- Postoperative status with complication, prolonged hospital course, Immobilization. -SaO2 91% on RA, Hemodynamically stable on admission -Held ASA 325 mg which he was taking for CVA as newly started on anticoagulation -IV Heparin drip - therapeutic. Discussed with patient//daughter about risks and benefits of coumadin/NOAC- bleeding risk. No antidote for NOAC. Discussed with Dr Osborn, surgeon as well- do not anticipate any surgeries, no prior bleeding issues. Leaning towards NOAC. -Started on Xarelto 15 mg PO BID x 21 days (First dose today at 11:00 AM while in hospital) and than 20 mg daily per cr clearance -Work up ordered- US duplex- No DVT . Had Echo recently on 08/20/18- so will not repeat christina with no strain noted. RECENT LAP CHOLECYSTECTOMY / BILIARY STENT PLACEMENT -Indication: Acute gangrenous/necrotizing cholecystitis -Surgery- 1. Lap cholecystectomy on 08/20/2018 2. ERCP with biliary sphincterectomy and stent placement on 08/21/2018 - -Post operative course- Complicated by Bile leak requiring ERCP with stent placement on 08/21 -Developed sepsis with CT scan questionable abscess - responded to conservative mx with broad-spectrum IV antibioticsFlagyl/Zosyn. Completed 14-day course of Zosyn. -No acute issues currently- Mild abd discomfort with no pain, no nausea, vomit ing. -Gen surgery evaluated during this admission due to post operative status- doing well. -Outpatient plan: 09/30/18- Scheduled Appt for Biliary stent removal HYPERTENSION Stable -Continue with lisinopril 20 mg twice daily which was started during last admission -Monitor HX OF STROKE -Was on ASA 325 mg which was restarted on discharge on 09/04/18 and held prior to that post op/ERCP -Hold ASA as on IV Heparin/Bridging to xarelto DM -II -HBA1C 7.5 -ISS, Accuchecks -Hold Metformin SEIZURE DISORDER -Continue with keppra 1500 mg PO BID GERD -Continue with protonix DVT PROPHYLAXIS IV Heparin drip/ Xarelto bridging CODE STATUS DNR/DNI per patient DISPOSITION Ok to discharge back to [facility] for rehab PT/OT Updated family - daughter over phone about discharge plan Total Time Total Time Spent Total Time Spent (In Minutes): 40 minutes Discharge Plan Discharge Items Patient Disposition: Transfer Acute Care Hospital Reason For Visit: BILATERAL PULM EMBOLISM Discharge Diagnosis: BILATERAL PULMONARY EMBOLISM Discharge Goals: Decrease discomfort and Therapeutic intervention Activity: Resume your previous activity Non-emergency contact: Primary Care Provider Call non-emergency contact if: your symptoms worsen Follow-up/Referrals: Raul Benitez MD [Primary Care Provider] - Diet: Heart Healthy and Low Sodium (2gm) Addtl Provider Instructions: MEDICATION CHANGES 1. NEW MEDICATION- Xarelto 15 mg first dose today at 11 AM --> to be taken twice a day for 21 days followed by 20 mg daily (dose to be adjusted per creatinine clearance/kidney function) 2. Discontinued ASA 325 mg which he was taking for hx of stroke as newly started on Xarelto Prescriptions: New Xarelto 15 mg tablet 15 mg PO BID 21 Days Qty: 42 RF: 0 Xarelto 15 mg Tablet 15 mg PO BID 21 Days Qty: 42 RF: 0 Continued metformin 500 mg Tablet 500 mg PO AMPM RF: 0 levetiracetam 750 mg Tablet 1,500 mg PO AMHS RF: 0 ezetimibe [Zetia] 10 mg Tablet 10 mg PO QPM RF: 0 Men's 50 Plus Multivitamin 400-20-370 mcg Tablet 1 tab PO QAM RF: 0 lisinopril 20 mg tablet 20 mg PO AMHS RF: 0 pantoprazole [Protonix] 40 mg tablet,delayed release (DR/EC) 40 mg PO QAM RF: 0 acetaminophen [Tylenol] 325 mg Tablet 650 mg PO Q4 MDD 3g/24hr PRN (Reason: Fever Or Pain) RF: 0 triamcinolone acetonide 0.1 % Cream 1 applic TOPICAL BID RF: 0 Discontinued aspirin 325 mg Tablet,Delayed Release (Dr/Ec) 325 mg PO QAM RF: 0 Stand-Alone Forms: [facility] Admission Data Admit Date/Time: 09/06/18 08:00 Attending Provider: Consuelo Franz Admit Provider: Consuelo Franz Primary Care Provider: Raul Benitez Other Providers: Marcos Oro Mark Service: Medical
[2018-09-08] MEDS ORDERED: RIVAROXABAN 15 MG TAB PO SCH (11:00)
== END 2018-09-08 15:15 | DRG 176 ==
LOC: ED 04:13 → 2N 08:00

== ENCOUNTER 2018-09-16 11:54 | Inpatient (IN) ==
[2018-09-16] MEDS ORDERED: SODIUM CHLORIDE 0.9% 1000ML 1,000 ML IV ONE ×2 (12:34→14:08)
[2018-09-16 12:54] LABS: Alanine Aminotransferase 29 U/L (12-78); Albumin Level 2.6 gm/dl (3.4-5.0); Aspartate Aminotransferase 18 U/L (15-37); BUN Creatinine Ratio 21.4 (10-20); Bilirubin Direct 0.2 mg/dl (0-0.2); Blood Urea Nitrogen 19 mg/dl (7-18); Calcium 8.7 mg/dl (8.5-10.1); Carbon Dioxide 27 mmol/L (21-32); Chloride 102 mmol/L (98-107); Est GFR (Non-African American) 85.4; Glucose 208 mg/dl (70-99); Magnesium 1.3 mg/dl (1.8-2.4); Potassium 3.4 mmol/L (3.5-5.1); Sodium 139 mmol/L (136-145)
[2018-09-16] MEDS ORDERED: VANCOMYCIN CONSULT ACTIVE PRN (12:55)
[2018-09-16] MEDS ORDERED: VANCOMYCIN HCL 1,500 MG in SODIUM CHLORIDE 0.9% 500 ML IV ONE (12:55)
[2018-09-16 12:56] LABS: Basophils # (auto) 0.08 K/uL (0-0.2); Basophils % (auto) 0.4 %; Eosinophils # (auto) 0.19 K/uL (0-0.5); Eosinophils % (auto) 0.9 %; Hemoglobin 13.6 g/dL (14.0-18.0); Immature Granulocytes # (auto) 0.07 K/uL (0.00-0.02); Immature Granulocytes % (auto) 0.3 %; Lymphocytes # (auto) 1.88 K/uL (1.2-3.4); Lymphocytes % (auto) 8.8 %; Mean Corpuscular Hgb Conc 33.2 g/dL (32-36); Mean Corpuscular Volume 91.3 fL (80-100); Mean Platelet Volume 10.5 fL (7.4-10.4); Monocytes # (auto) 1.74 K/uL (0.11-0.59); Monocytes % (auto) 8.2 %; Neutrophils # (auto) 17.33 K/uL (1.4-6.5); Neutrophils % (auto) 81.4 %; Platelet Count 403 K/uL (130-400); RDW Coefficient of Variation 13.7 % (11.5-14.5); RDW Standard Deviation 45.1 fL (36.4-46.3); Red Blood Count 4.49 M/uL (4.7-6.1); White Blood Count 21.29 K/uL (4.8-10.8)
[2018-09-16 12:58] LABS: INR 1.4 (0.9-1.1); Partial Thromboplastin Ratio 1.2; Prothrombin Time 13.7 Seconds (9.0-12.0)
[2018-09-16 12:59] LABS: Albumin Globulin Ratio 0.6 (0.9-2); Alkaline Phosphatase 86 U/L (45-117); Bilirubin,Total 0.7 mg/dl (0.2-1); Globulin 4.1 gm/dl (2.5-4.0); Phosphorus 2.8 mg/dl (2.5-4.9); Total Protein 6.7 gm/dl (6.4-8.2); Troponin I < 0.015 ng/ml (0-0.045)
--- NOTE | 2018-09-16 13:17 | XRay Report ---
XR chest 1V portable HISTORY: 73 years-old Male Sepsis acute sepsis COMPARISON: Chest radiograph and CTA chest 09/06/2018 TECHNIQUE: Portable AP view of the chest FINDINGS: Cardiomediastinal and hilar silhouettes are within normal limits. No pneumothorax, pleural effusion, focal airspace consolidation or overt pulmonary edema. Mild right hemidiaphragmatic elevation is unch anged. Degenerative changes of the shoulders and spine. Surgical clips overlie the abdominal right up per quadrant with possible drainage catheter. Suggested graft of the right carotid distribution. IMPRESSION: No acute process. The above report was generated using voice recognition software. It may contain grammatical, syntax o r spelling errors. Electronically signed by: Lowell Deras M.D. 09/16/2018 1:16 PM
[2018-09-16 13:21] LABS: Base Excess VBG 3.5 mEq/L; Oxygen Saturation VBG 81.8 %; pH VBG 7.46 (7.36-7.41)
[2018-09-16] MEDS: PIPERACILLIN/TAZOBACTAM 4.5 GM/120 ML BAG IV ONE ×2 (13:49→15:27)
[2018-09-16] MEDS ORDERED: PIPERACILL/TAZOBAC CONSULT ACTIVE PRN (13:59)
[2018-09-16] MEDS ORDERED: PIPERACILLIN/TAZOBACTAM 4.5 GM/120 ML BAG IV ONE (13:59)
[2018-09-16] MEDS ORDERED: MAGNESIUM SULFATE / D5W 1 GM/100 ML BAG IV STA (14:08)
[2018-09-16] MEDS ORDERED: OPTIRAY 320 125ml IV PRN (14:27)
--- NOTE | 2018-09-16 14:42 | CT Scan Report ---
CT angio chest PE protocol CLINICAL HISTORY: 73 years-old Male presenting with shortness of breath and abdominal pain, recent varela rgery, clinical concern for pulmonary embolus. TECHNIQUE: Multidetector CT angiography of the chest was performed after administration of intravenou s contrast. 3-D volumetric and/or maximum intensity projection (MIP) images were subsequently reconst ructed for review. IV contrast: 116 mL of Optiray 320. One or more dose lowering techniques were used consistent with the principles of ALARA (as low as reasonably achievable), including automatic expos ure control, mA or kV adjustment to individual patient size, and/or use of iterative reconstruction. COMPARISON: 09/06/2018. CT DOSE (mGy.cm): The estimated cumulative dose is 811.78 mGy.cm. FINDINGS: Building Estimator topogram: Tavo-Cleaning drain projects over the right upper quadrant. Plastic common bile duct stent in place. Surgical clips in the right upper quadrant likely cholecystectomy clips. Pulmonary vasculature: The study is adequate for assessment of the pulmonary vascular tree. No filling defect within the pul monary arteries to suggest embolus. Main pulmonary artery is not enlarged. No flattening of the inter ventricular septum. No intracardiac filling defect. No reflux of contrast into the hepatic veins. Remaining chest: Soft tissues: Normal thyroid and thoracic inlet. No axillary, supraclavicular, mediastinal, or hilar lymphadenopathy. Atherosclerosis of the aorta. Stenosis of the proximal left subclavian artery over 5 0% (series 4 image 214). Normal heart size. Coronary artery and aortic valve calcification. No perica rdial or pleural effusion. Postsurgical changes of cholecystectomy with infiltration and gas noted in the gallbladder fossa, likely expected postsurgical change. Lungs and airways: No pneumothorax. Bronchial wall thickening in the lower lobes suggested. This has increased from prior. The appearance of the trachea is consistent with an expiratory phase of respira tion. Pulmonary arteries mildly enlarged relative to adjacent bronchi. No interlobular septal thicken ing. Dependent consolidation in the lower lobes likely atelectasis. Respiratory motion artifact degra michael evaluation of the lung parenchyma. Musculoskeletal: Continue IMPRESSION: 1. No evidence of pulmonary embolus. 2. Extensive bibasilar atelectasis. 3. Increased lower lobe bronchial wall thickening. This could suggest bronchitis, chronic aspiration , or congestive change. 4. 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 5. Postsurgical changes of cholecystectomy. Gas and infiltration in the gallbladder fossa likely exp ected postsurgical change. Electronically signed by: Melvin Glover M.D. 09/16/2018 2:41 PM
--- NOTE | 2018-09-16 14:52 | CT Scan Report ---
CT OF THE ABDOMEN AND PELVIS WITH CONTRAST CLINICAL HISTORY: AP/fevers, recent cholecystectomy, CARA drain dislodged. COMPARISON STUDY: CT of the abdomen and pelvis August 28, 2018. TECHNIQUE: Following IV administration of 116 mL of Optiray-320, axial images of the abdomen and pelv is were obtained from the lung bases to the proximal femurs. Images were reviewed in the axial, sagit bal, and coronal planes. IV contrast was administered without complication. Automated exposure contr ol was utilized for the study. A dose lowering technique was utilized adhering to the principles of ALARA. FINDINGS: Please note that the chest CT will be reported separately. Fatty infiltration of the liver is noted. Trace fluid and gas within the cholecystectomy bed has decreased. A cholecystectomy drain i s in place. Infiltration adjacent to the drain is noted. There is no abscess. There is also asymmetri c enlargement of the right lateral abdominal wall musculature which may be related to the drain. Mild peripancreatic infiltration is improved since CT of August 28, 2018. The spleen, adrenal glands and kid neys are normal. There is no evidence for a bowel obstruction. Note is made of a 1.4 cm nodular enhan cing focus along left posterior aspect of the bladder. Sclerosis of the femoral heads is again noted. There is extensive aortoiliac plaque. 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 Thi s is unchanged. There is trace ascites within the pelvis. There is a small amount of ascites within t he abdomen. A biliary stent remains in place. There is no biliary ductal dilatation. IMPRESSION: 1. Trace fluid and gas within the cholecystectomy bed which has decreased since CT of August 28, 2018. I ncrease in infiltration along the operative bed drain that involves the abdominal wall musculature. T his raises the possibility of an infectious process with cellulitis and infected drain. No abscess. T race abdominal and pelvic ascites. 2. Interval improvement in peripancreatic infiltration suggestive of improving pancreatitis. Biliary drain in place. No biliary ductal dilatation. 3. 1.4 cm nodular enhancing focus along the left posterior aspect of the bladder which favors a uroth elial lesion. Nonemergent urologic consultation is recommended. Electronically signed by: Levy Shepherd M.D. 09/16/2018 2:51 PM
[2018-09-16] MEDS ORDERED: MoRPHine SULFATE 10 MG/ML CARP/VIAL IV STA (15:32)
[2018-09-16] MEDS ORDERED: ACETAMINOPHEN 1,000 MG/100 ML VIAL IV STA (15:32)
--- NOTE | 2018-09-16 17:57 | Emergency Department Note ---
Entered by Janette Cloud acting as a scribe for Booker Hyman MD History of Present Illness General Chief complaint: Abdominal Pain Stated complaint: abd pain/ [facility] Time Seen by Provider: 09/16/18 12:32 Source: patient Mode of arrival: EMS Limitations: no limitations History of Present Illness Onset (ago): day(s) (today) Location: abdomen (right lower) Pain Consistency: + other (worsening) Maximum Pain Intensity: 7 Associated symptoms: + fever/chills (The patient complains of fevers. ) and + nausea/vomiting Treatments prior to arrival: other (The patient was given 750 cc of fluid, 3 mg of morphine, 4 Zofran, and Tylenol prior to arrival) The patient is a 73 year old male with a history of leukocytosis, seizure disorder as sequel of cerebrovascular accident, sepsis, PE, peripheral artery disease, stroke, hypertension, diabetes, and appendectomy who presents to the ED via EMS with complaints of worsening right lower abdominal pain that onset today. The patient presents from [facility]. He states that he had a cholecystectomy completed over 4 weeks ago. The patient reports that his gallbladder was gangrenous at the time and became septic. He notes that he is following up with surgery this upcoming Sunday. The patient reports that the sutures of his drain fell out and the site is reddened. The patient complains of fever of 102.6, nausea, and vomiting. The patient was given 750 cc of fluid, 3 mg of morphine, 4 Zofran, and Tylenol prior to arrival. He states that he is not normally on oxygen. The patient notes that he is a former smoker. Home Medications Home Medications Medication Instructions Recorded Confirmed Type ezetimibe [Zetia] 10 mg PO QPM 12/17/17 09/16/18 History levetiracetam 1,500 mg PO AMHS 12/17/17 09/16/18 History metformin 500 mg PO AMPM 12/17/17 09/16/18 History Men's 50 Plus Multivitamin 1 tab PO PM 08/19/18 09/16/18 History lisinopril 20 mg PO AMHS 09/06/18 09/16/18 History ciprofloxacin HCl 500 mg PO BID 09/16/18 09/16/18 History metronidazole 500 mg PO TID 09/16/18 09/16/18 History omeprazole 20 mg PO DAILYBB 09/16/18 09/16/18 History rivaroxaban [Xarelto] 15 mg PO AMHS 09/16/18 09/16/18 History Allergies Allergy/AdvReac Type Severity Reaction Status Date / Time lactose AdvReac Intermediate GI SYMPTOMS Verified 09/16/18 12:46 Thaswlv-Kxg-Nyx Reductase AdvReac Unknown MUSCLE Verified 09/16/18 12:46 Inhibitor CRAMPS Past Med/Surg History Medical History History of pulmonary embolism (Chronic) History of right common carotid artery stent placement (Chronic) Left hemiparesis (Chronic) DM type 2 (diabetes mellitus, type 2) (Chronic) Seizure disorder (Chronic) Bile leak, postoperative (Chronic) PAD (peripheral artery disease) (Chronic) History of stroke (Chronic) 5 years ago, residual CANNOT USE LEFT ARM - IN SLING; LEFT LEG WEAK - USES YEN WALKER HTN (hypertension) (Chronic) Surgical History H/O umbilical hernia repair (Chronic) History of cholecystectomy (Chronic) History of appendectomy (Resolved) Family History Mother Diabetes Father Stroke Social History Preferred Language: Spanish Communication Ability: Effective Beliefs That Will Affect Care: None marital status: Current Living Situation: Rehab Current Living Situation Comment: [facility] Other Information That Helps Us Care for You: No Feels Safe at Home: Yes Safety Concerns: Feels Safe At This Time Smoking Status: Former smoker Second Hand Exposure: No Hx Alcohol Use: No Hx Substance Use: No Review of Systems See HPI for pertinent positives & negatives. and A total of 10 systems reviewed and were otherwise negative Physical Exam Vital Signs Vital Signs - 24 hr 09/16/18 11:59 09/16/18 12:03 09/16/18 12:07 Temperature 37.0 C Temperature Source Oral Sepsis Recent Fever Within 48 Hours Yes Sepsis New/Unexplained Change in Mental Status No Sepsis Action Taken by Nursing Physician Notified Pulse Rate 116 H 117 H 117 H Pulse Rate [Apical] Pulse Rate from SpO2 Sensor 116 H Pulse Rhythm Regular Pulse Strength Normal Respiratory Rate 22 21 22 Respiratory Effort / Characteristics Non-Labored Spontaneous Respiratory Depth Normal Respiratory Pattern Regular Blood Pressure 126/71 126/71 Blood Pressure [Left Arm] Blood Pressure Mean 89 89 Blood Pressure Mean [Left Arm] Blood Pressure Position Sitting Pulse Oximetry 94 88 L Oxygen Delivery Method Room Air Oxygen Flow Rate 09/16/18 12:30 09/16/18 12:41 09/16/18 12:42 Temperature Temperature Source Sepsis Recent Fever Within 48 Hours Sepsis New/Unexplained Change in Mental Status Sepsis Action Taken by Nursing Pulse Rate 116 H 113 H 113 H Pulse Rate [Apical] Pulse Rate from SpO2 Sensor Pulse Rhythm Regular Pulse Strength Respiratory Rate 21 22 22 Respiratory Effort / Characteristics Respiratory Depth Respiratory Pattern Blood Pressure 115/66 Blood Pressure [Left Arm] Blood Pressure Mean 82 Blood Pressure Mean [Left Arm] Blood Pressure Position Pulse Oximetry 95 Oxygen Delivery Method Nasal Cannula Oxygen Flow Rate 2 09/16/18 12:45 09/16/18 13:00 09/16/18 13:15 Temperature Temperature Source Sepsis Recent Fever Within 48 Hours Sepsis New/Unexplained Change in Mental Status Sepsis Action Taken by Nursing Pulse Rate 112 H 109 H 107 H Pulse Rate [Apical] Pulse Rate from SpO2 Sensor Pulse Rhythm Pulse Strength Respiratory Rate 20 23 20 Respiratory Effort / Characteristics Respiratory Depth Respiratory Pattern Blood Pressure 117/72 119/68 111/66 Blood Pressure [Left Arm] Blood Pressure Mean 87 85 81 Blood Pressure Mean [Left Arm] Blood Pressure Position Pulse Oximetry Oxygen Delivery Method Oxygen Flow Rate 09/16/18 13:30 09/16/18 13:45 09/16/18 14:00 Temperature Temperature Source Sepsis Recent Fever Within 48 Hours Sepsis New/Unexplained Change in Mental Status Sepsis Action Taken by Nursing Pulse Rate 105 H 104 H 103 H Pulse Rate [Apical] Pulse Rate from SpO2 Sensor Pulse Rhythm Pulse Strength Respiratory Rate 19 20 19 Respiratory Effort / Characteristics Respiratory Depth Respiratory Pattern Blood Pressure 129/69 128/67 123/66 Blood Pressure [Left Arm] Blood Pressure Mean 89 87 85 Blood Pressure Mean [Left Arm] Blood Pressure Position Pulse Oximetry Oxygen Delivery Method Oxygen Flow Rate 09/16/18 14:30 09/16/18 14:47 09/16/18 15:00 Temperature Temperature Source Sepsis Recent Fever Within 48 Hours Sepsis New/Unexplained Change in Mental Status Sepsis Action Taken by Nursing Pulse Rate 101 H 102 H 97 H Pulse Rate [Apical] Pulse Rate from SpO2 Sensor 103 H 97 H Pulse Rhythm Pulse Strength Respiratory Rate 11 L 21 16 Respiratory Effort / Characteristics Respiratory Depth Respiratory Pattern Blood Pressure 116/64 117/60 Blood Pressure [Left Arm] Blood Pressure Mean 81 79 Blood Pressure Mean [Left Arm] Blood Pressure Position Pulse Oximetry 95 97 Oxygen Delivery Method Oxygen Flow Rate 09/16/18 15:01 09/16/18 15:15 09/16/18 15:21 Temperature Temperature Source Sepsis Recent Fever Within 48 Hours Sepsis New/Unexplained Change in Mental Status Sepsis Action Taken by Nursing Pulse Rate 96 H Pulse Rate [Apical] 94 H Pulse Rate from SpO2 Sensor 96 H Pulse Rhythm Pulse Strength Respiratory Rate 16 Respiratory Effort / Characteristics Respiratory Depth Respiratory Pattern Blood Pressure 111/60 Blood Pressure [Left Arm] 111/60 Blood Pressure Mean 77 Blood Pressure Mean [Left Arm] 77 Blood Pressure Position Pulse Oximetry 95 96 Oxygen Delivery Method Nasal Cannula Nasal Cannula Oxygen Flow Rate 2 2 09/16/18 15:30 09/16/18 15:45 09/16/18 16:00 Temperature Temperature Source Sepsis Recent Fever Within 48 Hours Sepsis New/Unexplained Change in Mental Status Sepsis Action Taken by Nursing Pulse Rate 92 H 96 H 91 H Pulse Rate [Apical] Pulse Rate from SpO2 Sensor 92 H 97 H 91 H Pulse Rhythm Pulse Strength Respiratory Rate 18 16 17 Respiratory Effort / Characteristics Respiratory Depth Respiratory Pattern Blood Pressure 96/78 L 121/68 110/60 Blood Pressure [Left Arm] Blood Pressure Mean 84 85 76 Blood Pressure Mean [Left Arm] Blood Pressure Position Pulse Oximetry 97 95 95 Oxygen Delivery Method Oxygen Flow Rate 09/16/18 16:15 09/16/18 16:30 09/16/18 16:45 Temperature Temperature Source Sepsis Recent Fever Within 48 Hours Sepsis New/Unexplained Change in Mental Status Sepsis Action Taken by Nursing Pulse Rate 88 87 89 Pulse Rate [Apical] Pulse Rate from SpO2 Sensor Pulse Rhythm Pulse Strength Respiratory Rate 16 19 19 Respiratory Effort / Characteristics Respiratory Depth Respiratory Pattern Blood Pressure 110/61 107/58 L 112/65 Blood Pressure [Left Arm] Blood Pressure Mean 77 74 80 Blood Pressure Mean [Left Arm] Blood Pressure Position Pulse Oximetry Oxygen Delivery Method Oxygen Flow Rate 09/16/18 17:00 09/16/18 17:15 09/16/18 17:30 Temperature Temperature Source Sepsis Recent Fever Within 48 Hours Sepsis New/Unexplained Change in Mental Status Sepsis Action Taken by Nursing Pulse Rate 90 90 88 Pulse Rate [Apical] Pulse Rate from SpO2 Sensor Pulse Rhythm Pulse Strength Respiratory Rate 17 16 17 Respiratory Effort / Characteristics Respiratory Depth Respiratory Pattern Blood Pressure 118/69 132/86 131/70 Blood Pressure [Left Arm] Blood Pressure Mean 85 101 90 Blood Pressure Mean [Left Arm] Blood Pressure Position Pulse Oximetry Oxygen Delivery Method Oxygen Flow Rate 09/16/18 17:45 09/16/18 18:00 09/16/18 18:15 Temperature Temperature Source Sepsis Recent Fever Within 48 Hours Sepsis New/Unexplained Change in Mental Status Sepsis Action Taken by Nursing Pulse Rate 87 85 85 Pulse Rate [Apical] Pulse Rate from SpO2 Sensor 85 Pulse Rhythm Pulse Strength Respiratory Rate 14 13 15 Respiratory Effort / Characteristics Respiratory Depth Respiratory Pattern Blood Pressure 123/69 118/69 118/70 Blood Pressure [Left Arm] Blood Pressure Mean 87 85 86 Blood Pressure Mean [Left Arm] Blood Pressure Position Pulse Oximetry 95 Oxygen Delivery Method Oxygen Flow Rate 09/16/18 18:30 09/16/18 19:23 Temperature Temperature Source Sepsis Recent Fever Within 48 Hours Sepsis New/Unexplained Change in Mental Status Sepsis Action Taken by Nursing Pulse Rate 84 Pulse Rate [Apical] 80 Pulse Rate from SpO2 Sensor 84 Pulse Rhythm Pulse Strength Respiratory Rate 14 Respiratory Effort / Characteristics Respiratory Depth Respiratory Pattern Blood Pressure 115/60 Blood Pressure [Left Arm] 120/57 L Blood Pressure Mean 78 Blood Pressure Mean [Left Arm] 78 Blood Pressure Position Pulse Oximetry 96 Oxygen Delivery Method Nasal Cannula Oxygen Flow Rate GENERAL: Awake, alert, ill-appearing, in no distress HENT: Normocephalic, atraumatic. Oropharynx with dry mucous membranes and otherwise unremarkable. EYES: Normal conjunctiva. Sclera non-icteric. NECK: Supple. No nuchal rigidity. FROM. No JVD. RESPIRATORY: Diminished breath sounds at the bases. CARDIAC: Tachycardic rate, normal rhythm. Extremities warm and well perfused. Pulses equal. ABDOMEN: Soft, non-distended. No rebound or guarding. No masses. Tenderness surrounding CARA drain site with mild erythema and warmth. Scant serosanguinous drainage into drain which appears displaced by 3 cm. RECTAL: Deferred. MUSCULOSKELETAL: Chest examination reveals no tenderness. The back is symmetrical on inspection without obvious abnormality. There is no CVA tendernes s to palpation. No joint edema. LOWER EXTREMITIES: Calves are equal size bilaterally and non-tender. No edema. No discoloration. NEURO: Normal sensorium. No sensory or motor deficits noted. SKIN: No rash or jaundice noted. Course 1244: Past medical records reviewed. The patient was evaluated in room B04B. A complete history and physical examination was performed. 1508: [facility]. They recommend calling Dr. Nieves. 1513: I reviewed the patient's case with Dr. Nieves [facility]. He suggests calling Dr. Osborn. 1624: I reviewed the patient's case with Dr. Osborn [facility]. He states that he is already aware of the patient and to admit to medicine. 1646: [facility] She will evaluate the patient for further management. Reevaluation(s) Reevaluation #1: 1508: [facility] They recommend calling Dr. Nieves. Time: 15:08 Reevaluation #2: 1513: I reviewed the patient's case with Dr. Nieves [facility]. Time: 15:13 Reevaluation #3: 1624: I reviewed the patient's case with Dr. Osborn [facility]. He states that he is already aware of the patient and to admit to medicine. Time: 16:24 Additional Reevaluation(s): 1646: I reviewed the patient's case with Vianca Guo. She will evaluate the patient for further management. Administered Medications Ioversol (Optiray 320 125ml) 116 ml IV ONCE PRN PRN Reason: Interaction Checking Stop: 09/20/18 14:26 Last Admin: 09/16/18 14:28 Dose: 116 ml Documented by: [id number] Discontinued Medications Sodium Chloride (Nss 1000ml) 1,000 mls @ 999 mls/hr IV .Q1H1M ONE Stop: 09/16/18 13:34 Last Infusion: 09/16/18 14:00 Dose: 0 mls/hr Documented by: [id number] Admin: 09/16/18 13:07 Dose: 999 mls/hr Documented by: [id number] Vancomycin HCl 1,500 mg/ (Sodium Chloride) 530 mls @ 200 mls/hr IV NOW ONE; Protocol Stop: 09/16/18 15:33 Last Infusion: 09/16/18 17:30 Dose: 0 mls/hr Documented by: [id number] Admin: 09/16/18 14:49 Dose: 200 mls/hr Documented by: [id number] Piperacillin Sod/Tazobactam Sod (Zosyn) 4.5 gm in 120 mls @ 30 mls/hr IV NOW ONE Stop: 09/16/18 16:54 Last Admin: 09/16/18 15:27 Dose: Not Given Documented by: [id number] Piperacillin Sod/Tazobactam Sod (Zosyn) 4.5 gm in 120 mls @ 240 mls/hr IV NOW ONE Stop: 09/16/18 14:28 Last Infusion: 09/16/18 15:15 Dose: 0 mls/hr Documented by: [id number] Admin: 09/16/18 14:18 Dose: 240 mls/hr Documented by: [id number] Magnesium Sulfate/Dextrose (Magnesium Sulfate / D5w) 1 gm in 100 mls @ 100 mls/hr IV Q1H STA Stop: 09/16/18 15:07 Last Infusion: 09/16/18 17:09 Dose: 0 mls/hr Documented by: [id number] Admin: 09/16/18 15:42 Dose: 100 mls/hr Documented by: [id number] Sodium Chloride (Nss 1000ml) 1,000 mls @ 999 mls/hr IV .Q1H1M ONE Stop: 09/16/18 15:08 Last Infusion: 09/16/18 15:58 Dose: 0 mls/hr Documented by: [id number] Admin: 09/16/18 14:49 Dose: 999 mls/hr Documented by: [id number] Acetaminophen (Ofirmev) 1,000 mg in 100 mls @ 400 mls/hr IV NOW STA Stop: 09/16/18 15:46 Last Infusion: 09/16/18 16:16 Dose: 0 mls/hr Documented by: [id number] Admin: 09/16/18 15:55 Dose: 400 mls/hr Documented by: [id number] Morphine Sulfate (Morphine Sulfate) 6 mg IV NOW STA Stop: 09/16/18 15:33 Last Admin: 09/16/18 15:49 Dose: 6 mg Documented by: [id number] Medical Decision Making Differential Diagnosis Differential diagnoses: Viral syndrome, otitis, pharyngitis, pneumonia, influenza, meningitis, urinary tract infection, sepsis, bacteremia, as well as others were entertained. Medical Records Attestation: I reviewed the patient's medical records. Home Medications Current Medication List: was personally reviewed by me Laboratory Data Attestation: I reviewed the patient's lab results. Result diagrams: 09/16/18 12:02 09/16/18 12: Lab Results 09/16/18 09/16/18 09/16/18 Range/Units 12:02 12:02 12:02 WBC 21.29 H (4.8-10.8) K/uL RBC 4.49 L (4.7-6.1) M/uL Hgb 13.6 L (14.0-18.0) g/dL Hct 41.0 L (42-52) % MCV 91.3 (80-100) fL MCH 30.3 (25-34) pg MCHC 33.2 (32-36) g/dL RDW Std Deviation 45.1 (36.4-46.3) fL RDW Coeff of Araceli 13.7 (11.5-14.5) % Plt Count 403 H (130-400) K/uL MPV 10.5 H (7.4-10.4) fL Immature Gran % (Auto) 0.3 % Neut % (Auto) 81.4 % Lymph % (Auto) 8.8 % Webb % (Auto) 8.2 % Eos % (Auto) 0.9 % Baso % (Auto) 0.4 % Immature Gran # (Auto) 0.07 H (0.00-0.02) K/uL Neut # (Auto) 17.33 H (1.4-6.5) K/uL Lymph # (Auto) 1.88 (1.2-3.4) K/uL Webb # (Auto) 1.74 H (0.11-0.59) K/uL Eos # (Auto) 0.19 (0-0.5) K/uL Baso # (Auto) 0.08 (0-0.2) K/uL PT 13.7 H (9.0-12.0) Seconds INR 1.4 H (0.9-1.1) APTT 33.0 H (21.0-31.0) Seconds PTT Ratio 1.2 VBG pH (7.36-7.41) VBG pCO2 (38-50) mmHg VBG pO2 mmHg VBG HCO3 mmol/L VBG O2 Saturation % VBG Base Excess mEq/L Barometric Pressure mm/Hg Sodium 139 (136-145) mmol/L Potassium 3.4 L (3.5-5.1) mmol/L Chloride 102 (98-107) mmol/L Carbon Dioxide 27 (21-32) mmol/L Anion Gap 10.0 (3-11) BUN 19 H (7-18) mg/dl Creatinine 0.89 (0.6-1.4) mg/dl Est Cr Clr Drug Dosing 75.0 ml/min Est GFR ( Amer) 99.0 Est GFR (Non-Af Amer) 85.4 BUN/Creatinine Ratio 21.4 H (10-20) Glucose 208 H (70-99) mg/dl Lactate (0.4-2.0) mmol/L Calcium 8.7 (8.5-10.1) mg/dl Phosphorus 2.8 (2.5-4.9) mg/dl Magnesium 1.3 L (1.8-2.4) mg/dl Total Bilirubin 0.7 (0.2-1) mg/dl Direct Bilirubin 0.2 (0-0.2) mg/dl AST 18 (15-37) U/L ALT 29 (12-78) U/L Alkaline Phosphatase 86 (45-117) U/L Troponin I < 0.015 (0-0.045) ng/ml Total Protein 6.7 (6.4-8.2) gm/dl Albumin 2.6 L (3.4-5.0) gm/dl Globulin 4.1 H (2.5-4.0) gm/dl Albumin/Globulin Ratio 0.6 L (0.9-2) 09/16/18 09/16/18 Range/Units 13:05 13:05 WBC (4.8-10.8) K/uL RBC (4.7-6.1) M/uL Hgb (14.0-18.0) g/dL Hct (42-52) % MCV (80-100) fL MCH (25-34) pg MCHC (32-36) g/dL RDW Std Deviation (36.4-46.3) fL RDW Coeff of Araceli (11.5-14.5) % Plt Count (130-400) K/uL MPV (7.4-10.4) fL Immature Gran % (Auto) % Neut % (Auto) % Lymph % (Auto) % Webb % (Auto) % Eos % (Auto) % Baso % (Auto) % Immature Gran # (Auto) (0.00-0.02) K/uL Neut # (Auto) (1.4-6.5) K/uL Lymph # (Auto) (1.2-3.4) K/uL Webb # (Auto) (0.11-0.59) K/uL Eos # (Auto) (0-0.5) K/uL Baso # (Auto) (0-0.2) K/uL PT (9.0-12.0) Seconds INR (0.9-1.1) APTT (21.0-31.0) Seconds PTT Ratio VBG pH 7.46 H (7.36-7.41) VBG pCO2 40 (38-50) mmHg VBG pO2 46 mmHg VBG HCO3 28 mmol/L VBG O2 Saturation 81.8 % VBG Base Excess 3.5 mEq/L Barometric Pressure 732.0 mm/Hg Sodium (136-145) mmol/L Potassium (3.5-5.1) mmol/L Chloride (98-107) mmol/L Carbon Dioxide (21-32) mmol/L Anion Gap (3-11) BUN (7-18) mg/dl Creatinine (0.6-1.4) mg/dl Est Cr Clr Drug Dosing ml/min Est GFR ( Amer) Est GFR (Non-Af Amer) BUN/Creatinine Ratio (10-20) Glucose (70-99) mg/dl Lactate 1.6 (0.4-2.0) mmol/L Calcium (8.5-10.1) mg/dl Phosphorus (2.5-4.9) mg/dl Magnesium (1.8-2.4) mg/dl Total Bilirubin (0.2-1) mg/dl Direct Bilirubin (0-0.2) mg/dl AST (15-37) U/L ALT (12-78) U/L Alkaline Phosphatase (45-117) U/L Troponin I (0-0.045) ng/ml Total Protein (6.4-8.2) gm/dl Albumin (3.4-5.0) gm/dl Globulin (2.5-4.0) gm/dl Albumin/Globulin Ratio (0.9-2) Imaging Data Radiologist's Impression: Radiology results as stated below per my review and the radiologist's interpretation: CT angio chest PE protocol CLINICAL HISTORY: 73 years-old Male presenting with shortness of breath and abdominal pain, recent surgery, clinical concern for pulmonary embolus. TECHNIQUE: Multidetector CT angiography of the chest was performed after administration of intravenous contrast. 3-D volumetric and/or maximum intensity projection (MIP) images were subsequently reconstructed for review. IV contrast: 116 mL of Optiray 320. One or more dose lowering techniques were used consistent with the principles of ALARA (as low as reasonably achievable), including automatic exposure control, mA or kV adjustment to individual patient size, and/or use of iterative reconstruction. COMPARISON: 09/06/2018. CT DOSE (mGy.cm): The estimated cumulative dose is 811.78 mGy.cm. 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 Plastic common bile duct stent in place. Surgical clips in the right upper quadrant likely cholecystectomy clips. Pulmonary vasculature: The study is adequate for assessment of the pulmonary vascular tree. No filling defect within the pulmonary arteries to suggest embolus. Main pulmonary artery is not enlarged. No flattening of the interventricular septum. No intracardiac filling defect. No reflux of contrast into the hepatic veins. Remaining chest: Soft tissues: Normal thyroid and thoracic inlet. No axillary, supraclavicular, mediastinal, or hilar lymphadenopathy. Atherosclerosis of the aorta. Stenosis of the proximal left subclavian artery over 50% (series 4 image 214). Normal heart size. Coronary artery and aortic valve calcification. No pericardial or pleural effusion. Postsurgical changes of cholecystectomy with infiltration and gas noted in the gallbladder fossa, likely expected postsurgical change. Lungs and airways: No pneumothorax. Bronchial wall thickening in the lower lobes suggested. This has increased from prior. The appearance of the trachea is c onsistent with an expiratory phase of respiration. Pulmonary arteries mildly enlarged relative to adjacent bronchi. No interlobular septal thickening. Dependent consolidation in the lower lobes likely atelectasis. Respiratory motion artifact degrades evaluation of the lung parenchyma. Musculoskeletal: Continue IMPRESSION: 1. No evidence of pulmonary embolus. 2. Extensive bibasilar atelectasis. 3. Increased lower lobe bronchial wall thickening. This could suggest bronchitis, chronic aspiration, or congestive change. 4. 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 5. Postsurgical changes of cholecystectomy. Gas and infiltration in the gallbladder fossa likely expected postsurgical change. Electronically signed by: Melvin Glover M.D. 09/16/2018 2:41 PM Dictated: 09/16/18 1435 Transcribed: 09/16/[address] OF THE ABDOMEN AND PELVIS WITH CONTRAST CLINICAL HISTORY: AP/fevers, recent cholecystectomy, CARA drain dislodged. COMPARISON STUDY: CT of the abdomen and pelvis August 28, 2018. TECHNIQUE: Following IV administration of 116 mL of Optiray-320, axial images of the abdomen and pelvis were obtained from the lung bases to the proximal femurs. Images were reviewed in the axial, sagittal, and coronal planes. IV contrast was administered without complication. Automated exposure control was utilized for the study. A dose lowering technique was utilized adhering to the principles of ALARA. FINDINGS: Please note that the chest CT will be reported separately. Fatty infiltration of the liver is noted. Trace fluid and gas within the cholecystectomy bed has decreased. A cholecystectomy drain is in place. Infil tration adjacent to the drain is noted. There is no abscess. There is also asymmetric enlargement of the right lateral abdominal wall musculature which may be related to the drain. Mild peripancreatic infiltration is improved since CT of August 28, 2018. The spleen, adrenal glands and kidneys are normal. There is no evidence for a bowel obstruction. Note is made of a 1.4 cm nodular enhancing focus along left posterior aspect of the bladder. Sclerosis of the femoral heads is again noted. There is extensive aortoiliac plaque. 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 This is unchanged. There is trace ascites within the pelvis. There is a small amount of ascites within the abdomen. A biliary stent remains in place. There is no biliary ductal dilatation. IMPRESSION: 1. Trace fluid and gas within the cholecystectomy bed which has decreased since CT of August 28, 2018. Increase in infiltration along the operative bed drain that involves the abdominal wall musculature. This raises the possibility of an infectious process with cellulitis and infected drain. No abscess. Trace abdominal and pelvic ascites. 2. Interval improvement in peripancreatic infiltration suggestive of improving pancreatitis. Biliary drain in place. No biliary ductal dilatation. 3. 1.4 cm nodular enhancing focus along the left posterior aspect of the bladder which favors a urothelial lesion. Nonemergent urologic consultation is recommended. Electronically signed by: Levy Shepherd M.D. 09/16/2018 2:51 PM Dictated: 09/16/18 1436 Transcribed: 09/16/18 1436 XR chest 1V portable HISTORY: 73 years-old Male Sepsis acute sepsis COMPARISON: Chest radiograph and CTA chest 09/06/2018 TECHNIQUE: Portable AP view of the chest FINDINGS: Cardiomediastinal and hilar silhouettes are within normal limits. No pneumothorax, pleural effusion, focal airspace consolidation or overt pulmonary edema. Mild right hemidiaphragmatic elevation is unchanged. Degenerative changes of the shoulders and spine. Surgical clips overlie the abdominal right upper quadrant with possible drainage catheter. Suggested graft of the right carotid distribution. IMPRESSION: No acute process. The above report was generated using voice recognition software. It may contain grammatical, syntax or spelling errors. Electronically signed by: Lowell Deras M.D. 09/16/2018 1:16 PM Dictated: 09/16/18 1313 Transcribed: 09/16/18 1313 ECG Data Attestation: I personally reviewed and interpreted this ECG as follows: Indication: other (abdominal pain) Rate (beats per minute): 107 Rhythm: sinus tachycardia Findings: + other (normal aixs); no acute ischemic change Blood Pressure Blood Pressure Findings: Normal blood pressure MDM Narrative The patient is a pleasant 73-year-old gentleman with a past medical history of CVA with residual left-sided weakness, recent cholecystectomy on 08/20 related to cholecystitis complicated by gangrenous gallbladder and bile leak status post biliary stent with indwelling CARA drain resents emergency department from his long-term facility concern for fevers and tachycardia per hpi. Of note patient was also recently admitted 09/06-09/08 for new dx of PE started on Xarelto. On arrival patient is ill-appearing but no acute distress, afebrile with heart rate in the 110s and vital signs otherwise stable. On exam the patient has mild erythema, warmth, tenderness surrounding the patient's right abdominal CARA drain insertion site. WBC 21K. H/H 13.6/41 similar to prior values. Weightless 403 similar to prior values. Chemistry without acidosis. Lactate within normal limits. Magnesium 1.3 with repletion provided. Troponin negative. Was ordered for Zosyn and vancomycin upon arrival for possible early sepsis. CT abdomen pelvis demonstrates cellulitis associated with abdominal wall and CARA drain. Otherwise there is no drainable fluid collection. Fluid and gas in the gallbladder fossa is decreased from prior imaging and this likely postoperative. Case was discussed with general surgery, Dr. Osborn who recommends admission to hospital medicine and they will evaluate and follow the patient with likely removal of the patient's CARA drain. This was discussed with Sari Webb, who evaluate the patient for admission. Impression & Plan Abdominal wall cellulitis, Sepsis, Hypomagnesemia Critical Care Time Critical Care Time: Yes Total Critical Care Time: 40 I have personally spent greater than 40 minutes of critical care time in the direct management of this patient. This includes bedside care, interpretation of diagnostic studies, and testing, discussion with consultants, patient, and family members, and other required patient management activities. This 40 minutes is in excess of all separately billable procedures. Discharge Plan Visit Data Chief Complaint: Abdominal Pain Stated Complaint: abd pain/ [place] [facility] ED Provider: Booker Hyman Discharge Problem: Abdominal wall cellulitis, Sepsis, Hypomagnesemia Patient Disposition: Being Evaluated by Hospitalist Discharge Instructions Interventions: ED Discharge Assessment Last Done: 09/16/18 19:23 Forms Stand Alone Forms: Call Back Authorization, [facility] Prescriptions Prescriptions: No Action metformin 500 mg Tablet 500 mg PO AMPM RF: 0 levetiracetam 750 mg Tablet 1,500 mg PO AMHS RF: 0 ezetimibe [Zetia] 10 mg Tablet 10 mg PO QPM RF: 0 Men's 50 Plus Multivitamin 400-20-370 mcg Tablet 1 tab PO PM RF: 0 metronidazole 500 mg Tablet 500 mg PO TID RF: 0 ciprofloxacin HCl 500 mg Tablet 500 mg PO BID RF: 0 omeprazole 20 mg Capsule,Delayed Release(Dr/Ec) 20 mg PO DAILYBB RF: 0 Xarelto 15 mg tablet 15 mg PO AMHS RF: 0 lisinopril 20 mg tablet 20 mg PO AMHS RF: 0 Referrals Referrals: Raul Benitez MD [Primary Care Provider] - Discharge Problem: Sepsis Qualifiers: Sepsis type: sepsis due to unspecified organism Qualified Code(s): A41.9 - Sepsis, unspecified organism The scribe's documentation has been prepared under my direction and personally reviewed by me in its entirety. I confirm that the note above accurately reflects all work, treatment, procedures, and medical decision making performed by me.
--- NOTE | 2018-09-16 18:08 | History & Physical Report ---
Date of Service September 16, 2018 Assessment & Plan (1) Sepsis: (2) Cellulitis of drainage site, post-operative: -Admit to [facility] with telemetry -Patient sent from [facility] for evaluation of fever and pain around CARA site -S/P cholecystectomy on 08/20 complicated by bile leak with ERCP and biliary stent placement -In the ED, WBC 21K, heart rate 110s; afebrile, BP stable, normal lactic acid -Erythema noted around CARA drain insertion site -CT ABD/pelvis showing increase in infiltration along the operative bed drain that involves the abdominal wall musculature, this raises the possibility of an infectious process with cellulitis and infected drain, no abscess. -LFTs WNL -Received IV Vanco and Zosyn in the ED, will continue with -Blood culture sent, obtain culture from CARA drain insertion site -CARA drain removed by general surgery in the ED; case discussed with Brittany Mata PA-C -no plans for surgical intervention at this time (3) Hypoxia: -In the ED, noted to be 88% on room air -this improved with oxygen 2 L via nasal cannula -CT chest showing extensive atelectasis, this is likely the cause of patient's hypoxia -Incentive spirometer ordered -There is also lower lobe bronchial wall thickening noted -on Zosyn and Vanco as above (4) Lesion of bladder: -CT ABD/pelvis showing 1.4 cm nodular enhancing focus along the left posterior aspect of the bladder which favors a urothelial lesion -Check UA -Dr. Gandhi to discuss with urology tomorrow (5) Bile leak, postoperative: (6) History of cholecystectomy: -S/P cholecystectomy on 08/20 which was complicated by bile leak and subsequent ERCP with biliary stent placement -Per GI, patient is to have stent in place until 09/30 -Dr. Gandhi to discuss with GI tomorrow (7) History of pulmonary embolism: -On Xarelto, continue (8) DM type 2 (diabetes mellitus, type 2): -Hgb A1c 6.3, 07/2018 -Hold oral agents and utilize NovoLog per protocol while hospitalized (9) Seizure disorder: -Continue Keppra (10) History of stroke: -Aspirin discontinued when patient was placed on Xarelto for PE -Continue Zetia (11) HTN (hypertension): -BP controlled, continue lisinopril (12) DVT prophylaxis: -On Xarelto History of Present Illness Chief Complaint: Fever Primary Care Provider: Raul Benitez MD 73-year-old male who was sent to the ED from [facility] for evaluation of fever. On 08/20, patient underwent cholecystectomy for gangrenous cholecystitis which was complicated by bile leak. Patient subsequently underwent ERCP with biliary stent placement. Patient was readmitted to [facility] 09/06 for acute pulmonary embolism. He was discharged on Xarelto. Patient reports he been doing well until yesterday. He reports developing chills and fever. He reports increasing pain around his abdominal CARA drain site. He reports there has been minimal drainage from the CARA drain itself. This morning, patient reports he had nausea and vomiting after breakfast. Review of records from [facility] report the patient was febrile up to 101 yesterday. At [facility], empiric Cipro and Flagyl was ordered and CT ABD/pelvis. This morning, he spiked a temp of 102.6 with tachycardia and was sent to the ED for further evaluation. Patient denies hematemesis or coffee-ground emesis. No diarrhea. He denies chest pain, shortness of breath, cough, sputum production. No lightheadedness, dizziness, diaphoresis, syncopal events. He denies any urinary symptoms. In the ED, WBC 21K and tachycardic 110s. No fever, BP stable, normal lactic acid. Mild hypokalemia and hypomagnesemia is noted. CT ABD/pelvis shows increase in infiltration along the operative bed drain that involves the abdominal wall musculature, this raises the possibility of an infectious process with cellu litis and infected drain, no abscess. Patient received IVF, IV Vanco, IV Zosyn, IV morphine, IV magnesium, IV Tylenol. Allergies Allergy/AdvReac Type Severity Reaction Status Date / Time lactose AdvReac Intermediate GI SYMPTOMS Verified 09/16/18 12:46 Eeklkdp-[id number]-Bcz Reductase AdvReac Unknown MUSCLE Verified 09/16/18 12:46 Inhibitor CRAMPS Home Medications Home Medications Medication Instructions Recorded Confirmed Type ezetimibe [Zetia] 10 mg PO QPM 12/17/17 09/16/18 History levetiracetam 1,500 mg PO AMHS 12/17/17 09/16/18 History metformin 500 mg PO AMPM 12/17/17 09/16/18 History Men's 50 Plus Multivitamin 1 tab PO PM 08/19/18 09/16/18 History lisinopril 20 mg PO AMHS 09/06/18 09/16/18 History ciprofloxacin HCl 500 mg PO BID 09/16/18 09/16/18 History metronidazole 500 mg PO TID 09/16/18 09/16/18 History omeprazole 20 mg PO DAILYBB 09/16/18 09/16/18 History rivaroxaban [Xarelto] 15 mg PO AMHS 09/16/18 09/16/18 History Past Med/Surg History Medical History History of pulmonary embolism (Chronic) History of right common carotid artery stent placement (Chronic) Left hemiparesis (Chronic) DM type 2 (diabetes mellitus, type 2) (Chronic) Seizure disorder (Chronic) Bile leak, postoperative (Chronic) PAD (peripheral artery disease) (Chronic) History of stroke (Chronic) 5 years ago, residual CANNOT USE LEFT ARM - IN SLING; LEFT LEG WEAK - USES [employer]ER HTN (hypertension) (Chronic) Surgical History H/O umbilical hernia repair (Chronic) History of cholecystectomy (Chronic) History of appendectomy (Resolved) Family History Mother Diabetes Father Stroke Social History Preferred Language: Serbian Communication Ability: Effective Beliefs That Will Affect Care: None marital status: Current Living Situation: Rehab Current Living Situation Comment: [facility] Other Information That Helps Us Care for You: No Feels Safe at Home: Yes Safety Concerns: Feels Safe At This Time Smoking Status: Former smoker Second Hand Exposure: No Hx Alcohol Use: No Hx Substance Use: No Review of Systems Review of Systems: ROS per HPI, all other systems reviewed and negative Physical Exam Constitutional: WD/WN, vitals as above Eyes: PERRL, conjunctivae normal, anicteric sclerae ENMT: external ear and nose normal, oropharynx normal Respiratory: normal respiratory effort, lungs clear to auscultation Cardiovascular: Rate/Rhythm: regular rate and regular rhythm Vessels: normal peripheral pulses Extremities: no edema Gastrointestinal (Abdomen): Inspection/Auscultation: normal bowel sounds and + abdominal surgical drain present (Right abdomen, draining a scant amount of serous fluid, mild surrounding erythema noted); abdomen not distended Percussion/Palpation: + abdomen tender (Around CARA drain site) and abdomen soft; no hepatosplenomegaly Musculoskeletal: Extremities: + abnormal strength (Left hemiparesis), no cyanosis and no clubbing Skin: no rashes Clammy skin, warm to touch Neurologic: PERRL, EOMI, accommodation nl, no face palsy, no dysarthria Psychiatric: A+Ox3, euthymic affect Results & Data Vital Signs (Past 12 Hours) Vital Signs Temp Pulse Pulse Resp BP BP Pulse Ox 09/16/18 17:00 90 17 118/69 09/16/18 16:45 89 19 112/65 09/16/18 16:30 87 19 107/58 L 09/16/18 16:15 88 16 110/61 09/16/18 16:00 91 H 17 110/60 95 09/16/18 15:45 96 H 16 121/68 95 09/16/18 15:30 92 H 18 96/78 L 97 09/16/18 15:21 94 H 111/60 96 09/16/18 15:15 96 H 16 111/60 95 09/16/18 15:00 97 H 16 117/60 97 09/16/18 14:47 102 H 21 116/64 95 09/16/18 14:30 101 H 11 L 09/16/18 14:00 103 H 19 123/66 09/16/18 13:45 104 H 20 128/67 09/16/18 13:30 105 H 19 129/69 09/16/18 13:15 107 H 20 111/66 09/16/18 13:00 109 H 23 119/68 09/16/18 12:45 112 H 20 117/72 09/16/18 12:42 113 H 22 115/66 09/16/18 12:41 113 H 22 95 09/16/18 12:30 116 H 21 09/16/18 12:07 37.0 C 117 H 22 126/71 88 L 09/16/18 12:03 117 H 21 09/16/18 11:59 116 H 22 126/71 94 Laboratory Results Short CBC 09/16/18 Range/Units 12:02 WBC 21.29 H (4.8-10.8) K/uL Hgb 13.6 L (14.0-18.0) g/dL Hct 41.0 L (42-52) % Plt Count 403 H (130-400) K/uL BMP 09/16/18 12:02 Sodium 139 Potassium 3.4 L Chloride 102 Carbon Dioxide 27 BUN 19 H Creatinine 0.89 Glucose 208 H Calcium 8.7 Cardiac Enzymes 09/16/18 Range/Units 12:02 Troponin I < 0.015 (0-0.045) ng/ml Liver Function 09/16/18 Range/Units 12:02 Total Bilirubin 0.7 (0.2-1) mg/dl Direct Bilirubin 0.2 (0-0.2) mg/dl AST 18 (15-37) U/L ALT 29 (12-78) U/L Alkaline Phosphatase 86 (45-117) U/L Albumin 2.6 L (3.4-5.0) gm/dl Diagnostic Findings CXR IMPRESSION: No acute process. CT ABD/PELVIS IMPRESSION: 1. Trace fluid and gas within the cholecystectomy bed which has decreased since CT of August 28, 2018. Increase in infiltration along the operative bed drain that involves the abdominal wall musculature. This raises the possibility of an infectious process with cellulitis and infected drain. No abscess. Trace abdominal and pelvic ascites. 2. Interval improvement in peripancreatic infiltration suggestive of improving pancreatitis. Biliary drain in place. No biliary ductal dilatation. 3. 1.4 cm nodular enhancing focus along the left posterior aspect of the bladder which favors a urothelial lesion. Nonemergent urologic consultation is recommended. CTA CHEST IMPRESSION: 1. No evidence of pulmonary embolus. 2. Extensive bibasilar atelectasis. 3. Increased lower lobe bronchial wall thickening. This could suggest bronchitis, chronic aspiration, or congestive change. 4. 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 5. Postsurgical changes of cholecystectomy. Gas and infiltration in the gallbladder fossa likely expected postsurgical change. Code Status & VTE Plan Code Status Patient is a DNR as per my discussion with him. VTE Prophylaxis Plan VTE Prophylaxis will be ordered: Yes Supervising Physician Co-Signing Physician Notes Attending addendum Patient was seen and examined in the emergency room in presence of the family members He complains to have fevers with chills and right upper abdominal pain with nausea Noted to have infected CARA drain Denies any chest pain and/or shortness of breath but noted to be hypoxic On examination Minimal distress at rest Looks ill Hemodynamically stable Chest-decreased breath sounds at the bases with minimal crackles Heart-S1-S2 Abdomen-minimally distended, soft, tender mostly upper abdomen and right upper quadrant The CARA drain site seems to be infected with minimal drainage and redness involving the adjoining area Bowel sounds present Extremities-no edema Admission labs and imaging studies reviewed Has infected CARA site and may have a infected sinus tract. Surgery consulted Agree with assessment and plan as outlined above by Vianca Gandhi
--- NOTE | 2018-09-16 18:19 | Surgery Consultation ---
Date of Consultation September 16, 2018 Assessment & Plan (1) Cellulitis of drainage site, post-operative: 73 year-old male who is currently 3 weeks and 6 days s/p laparoscopic cholecystectomy for gangrenous cholecysitis and 3 weeks 5 days s/p ERCP for postop bile leak. JONA drain in place. Presented to emergency deparmtent with abdominal pain, chills, sweats, and vomiting. JONA drain slightly removed by accident and sutures removed. Mild erythema surrounding drain site on inspection, no abscess. CT scan showing infiltration along surgical drain concerning for infection/cellulitis, no abscess. Leukocytosis of 21K, lactic acid normal. Plan: Jona drain removed, dressing placed. Change as needed No evidence of abscess/collection to be drained. No surgical intervention required Recommend IV Abx and to monitor cbc May have regular diet Biliary stent removal in about 4 weeks per GI recommendations Continue medical management (2) History of cholecystectomy: (3) Bile leak, postoperative: Dr. Osborn has seen and examined pt, agrees with above. Supervising Physician Co-Signing Physician Notes I interviewed and examined this patient I agree with the above note. He has some cellulitis of the fascial layers but there is no evidence of fasciitis. The drain was removed. Agree with antibiotics. History of Present Illness Reason for Consultation: abdominal pain at drain site Requesting Physician: Vianca Venegas History of Present Illness Silver is a 73 year-old male who is currently 3 weeks and 6 days s/p laparoscopic cholecystectomy for gangrenous cholecystitis and unfortunately developed post op bile leak and is 3 weeks and 5 days s/p ERCP with biliary stent placement. He unfortunately developed bilateral pulmonary embolism as well and was just recently discharged from hospital. Presented to emergency department today with complaint of abdominal pain and vomiting. Has had jona drain in place since surgery to monitor for any signs of bile leak. He states [place] accidentally remove part of drain but still has it in place without sutures. Had some sweats and chills. ER work-up included labs which showed leukocytosis of 21K. CT scan of abdomen and pelvis showing increase in infiltration along the operative bed drain that involves the abdominal wall musculature. This raises the possibility of an infectious process with cellulitis and infected drain. No abscess. Trace abdominal and pelvic ascites. On examination, part of drain removed and suture present on drain. There is about a 2 cm area of erythema surrounding the drain and tenderness to palpation. No palpable fluctuance. Drain with serous output. no bile. Allergies Allergy/AdvReac Type Severity Reaction Status Date / Time lactose AdvReac Intermediate GI SYMPTOMS Verified 09/16/18 12:46 Flmfdel-[id number]-Dvh Reductase AdvReac Unknown MUSCLE Verified 09/16/18 12:46 Inhibitor CRAMPS Home Medications Home Medications Medication Instructions Recorded Confirmed Type ezetimibe [Zetia] 10 mg PO QPM 12/17/17 09/16/18 History levetiracetam 1,500 mg PO AMHS 12/17/17 09/16/18 History metformin 500 mg PO AMPM 12/17/17 09/16/18 History Men's 50 Plus Multivitamin 1 tab PO PM 08/19/18 09/16/18 History lisinopril 20 mg PO AMHS 09/06/18 09/16/18 History ciprofloxacin HCl 500 mg PO BID 09/16/18 09/16/18 History metronidazole 500 mg PO TID 09/16/18 09/16/18 History omeprazole 20 mg PO DAILYBB 09/16/18 09/16/18 History rivaroxaban [Xarelto] 15 mg PO AMHS 09/16/18 09/16/18 History Patient History Medical History History of pulmonary embolism (Chronic) History of right common carotid artery stent placement (Chronic) Left hemiparesis (Chronic) DM type 2 (diabetes mellitus, type 2) (Chronic) Seizure disorder (Chronic) Bile leak, postoperative (Chronic) PAD (peripheral artery disease) (Chronic) History of stroke (Chronic) 5 years ago, residual CANNOT USE LEFT ARM - IN [place]; LEFT LEG WEAK - USES [employer] HTN (hypertension) (Chronic) Surgical History H/O umbilical hernia repair (Chronic) History of cholecystectomy (Chronic) History of appendectomy (Resolved) Family History Mother Diabetes Father Stroke Social History Preferred Language: Faroese Communication Ability: Effective Beliefs That Will Affect Care: None marital status: Current Living Situation: Rehab Current Living Situation Comment: [facility] Other Information That Helps Us Care for You: No Feels Safe at Home: Yes Safety Concerns: Feels Safe At This Time Smoking Status: Former smoker Second Hand Exposure: No Hx Alcohol Use: No Hx Substance Use: No Review of Systems Review of Systems: All systems reviewed & are unremarkable except as noted in HPI & below Physical Exam 2 Constitutional: WD/WN, vitals as above no acute distress Respiratory: normal respiratory effort; no respiratory distress Gastrointestinal (Abdomen): Inspection/Auscultation: + abdominal surgical drain present (RUQ jona drain with serous output about 20 cc); abdomen not distended Percussion/Palpation: + abdomen tender (at drain site) and abdomen soft; no guarding and abdomen not rigid Skin: no rashes, warm and dry erythema surrounding drain site with some fibrinous drainage. NO fluctuance palpable. No abscess. Psychiatric: A+Ox3, euthymic affect Results & Data Vital Signs (Past 12 Hours) Vital Signs Temp Pulse Pulse Resp BP BP Pulse Ox 09/16/18 17:00 90 17 118/69 09/16/18 16:45 89 19 112/65 09/16/18 16:30 87 19 107/58 L 09/16/18 16:15 88 16 110/61 09/16/18 16:00 91 H 17 110/60 95 09/16/18 15:45 96 H 16 121/68 95 09/16/18 15:30 92 H 18 96/78 L 97 09/16/18 15:21 94 H 111/60 96 09/16/18 15:15 96 H 16 111/60 95 09/16/18 15:00 97 H 16 117/60 97 09/16/18 14:47 102 H 21 116/64 95 09/16/18 14:30 101 H 11 L 09/16/18 14:00 103 H 19 123/66 09/16/18 13:45 104 H 20 128/67 09/16/18 13:30 105 H 19 129/69 09/16/18 13:15 107 H 20 111/66 09/16/18 13:00 109 H 23 119/68 09/16/18 12:45 112 H 20 117/72 09/16/18 12:42 113 H 22 115/66 09/16/18 12:41 113 H 22 95 09/16/18 12:30 116 H 21 09/16/18 12:07 37.0 C 117 H 22 126/71 88 L 09/16/18 12:03 117 H 21 09/16/18 11:59 116 H 22 126/71 94 Laboratory Results 09/16/18 09/16/18 09/16/18 Range/Units 13:05 13:05 12:02 WBC (4.8-10.8) K/uL RBC (4.7-6.1) M/uL Hgb (14.0-18.0) g/dL Hct (42-52) % MCV (80-100) fL MCH (25-34) pg MCHC (32-36) g/dL RDW Std Deviation (36.4-46.3) fL RDW Coeff of Araceli (11.5-14.5) % Plt Count (130-400) K/uL MPV (7.4-10.4) fL Immature Gran % (Auto) % Neut % (Auto) % Lymph % (Auto) % Morris % (Auto) % Eos % (Auto) % Baso % (Auto) % Immature Gran # (Auto) (0.00-0.02) K/uL Neut # (Auto) (1.4-6.5) K/uL Lymph # (Auto) (1.2-3.4) K/uL Morris # (Auto) (0.11-0.59) K/uL Eos # (Auto) (0-0.5) K/uL Baso # (Auto) (0-0.2) K/uL PT (9.0-12.0) Seconds INR (0.9-1.1) APTT (21.0-31.0) Seconds PTT Ratio VBG pH 7.46 H (7.36-7.41) VBG pCO2 40 (38-50) mmHg VBG pO2 46 mmHg VBG HCO3 28 mmol/L VBG O2 Saturation 81.8 % VBG Base Excess 3.5 mEq/L Barometric Pressure 732.0 mm/Hg Sodium 139 (136-145) mmol/L Potassium 3.4 L (3.5-5.1) mmol/L Chloride 102 (98-107) mmol/L Carbon Dioxide 27 (21-32) mmol/L Anion Gap 10.0 (3-11) BUN 19 H (7-18) mg/dl Creatinine 0.89 (0.6-1.4) mg/dl Est Cr Clr Drug Dosing 75.0 ml/min Est GFR ( Amer) 99.0 Est GFR (Non-Af Amer) 85.4 BUN/Creatinine Ratio 21.4 H (10-20) Glucose 208 H (70-99) mg/dl Lactate 1.6 (0.4-2.0) mmol/L Calcium 8.7 (8.5-10.1) mg/dl Phosphorus 2.8 (2.5-4.9) mg/dl Magnesium 1.3 L (1.8-2.4) mg/dl Total Bilirubin 0.7 (0.2-1) mg/dl Direct Bilirubin 0.2 (0-0.2) mg/dl AST 18 (15-37) U/L ALT 29 (12-78) U/L Alkaline Phosphatase 86 (45-117) U/L Troponin I < 0.015 (0-0.045) ng/ml Total Protein 6.7 (6.4-8.2) gm/dl Albumin 2.6 L (3.4-5.0) gm/dl Globulin 4.1 H (2.5-4.0) gm/dl Albumin/Globulin Ratio 0.6 L (0.9-2) 09/16/18 09/16/18 Range/Units 12:02 12:02 WBC 21.29 H (4.8-10.8) K/uL RBC 4.49 L (4.7-6.1) M/uL Hgb 13.6 L (14.0-18.0) g/dL Hct 41.0 L (42-52) % MCV 91.3 (80-100) fL MCH 30.3 (25-34) pg MCHC 33.2 (32-36) g/dL RDW Std Deviation 45.1 (36.4-46.3) fL RDW Coeff of Araceli 13.7 (11.5-14.5) % Plt Count 403 H (130-400) K/uL MPV 10.5 H (7.4-10.4) fL Immature Gran % (Auto) 0.3 % Neut % (Auto) 81.4 % Lymph % (Auto) 8.8 % Morris % (Auto) 8.2 % Eos % (Auto) 0.9 % Baso % (Auto) 0.4 % Immature Gran # (Auto) 0.07 H (0.00-0.02) K/uL Neut # (Auto) 17.33 H (1.4-6.5) K/uL Lymph # (Auto) 1.88 (1.2-3.4) K/uL Morris # (Auto) 1.74 H (0.11-0.59) K/uL Eos # (Auto) 0.19 (0-0.5) K/uL Baso # (Auto) 0.08 (0-0.2) K/uL PT 13.7 H (9.0-12.0) Seconds INR 1.4 H (0.9-1.1) APTT 33.0 H (21.0-31.0) Seconds PTT Ratio 1.2 VBG pH (7.36-7.41) VBG pCO2 (38-50) mmHg VBG pO2 mmHg VBG HCO3 mmol/L VBG O2 Saturation % VBG Base Excess mEq/L Barometric Pressure mm/Hg Sodium (136-145) mmol/L Potassium (3.5-5.1) mmol/L Chloride (98-107) mmol/L Carbon Dioxide (21-32) mmol/L Anion Gap (3-11) BUN (7-18) mg/dl Creatinine (0.6-1.4) mg/dl Est Cr Clr Drug Dosing ml/min Est GFR ( Amer) Est GFR (Non-Af Amer) BUN/Creatinine Ratio (10-20) Glucose (70-99) mg/dl Lactate (0.4-2.0) mmol/L Calcium (8.5-10.1) mg/dl Phosphorus (2.5-4.9) mg/dl Magnesium (1.8-2.4) mg/dl Total Bilirubin (0.2-1) mg/dl Direct Bilirubin (0-0.2) mg/dl AST (15-37) U/L ALT (12-78) U/L Alkaline Phosphatase (45-117) U/L Troponin I (0-0.045) ng/ml Total Protein (6.4-8.2) gm/dl Albumin (3.4-5.0) gm/dl Globulin (2.5-4.0) gm/dl Albumin/Globulin Ratio (0.9-2) Diagnostic Findings CT OF THE ABDOMEN AND PELVIS WITH CONTRAST CLINICAL HISTORY: AP/fevers, recent cholecystectomy, JONA drain dislodged. COMPARISON STUDY: CT of the abdomen and pelvis August 28, 2018. TECHNIQUE: Following IV administration of 116 mL of Optiray-320, axial images of the abdomen and pelvis were obtained from the lung bases to the proximal femurs. Images were reviewed in the axial, sagittal, and coronal planes. IV contrast was administered without complication. Automated exposure control was utilized for the study. A dose lowering technique was utilized adhering to the principles of ALARA. FINDINGS: Please note that the chest CT will be reported separately. Fatty infiltration of the liver is noted. Trace fluid and gas within the cholecystectomy bed has decreased. A cholecystectomy drain is in place. Infiltration adjacent to the drain is noted. There is no abscess. There is also asymmetric enlargement of the right lateral abdominal wall musculature which may be related to the drain. Mild peripancreatic infiltration is improved since CT of August 28, 2018. The spleen, adrenal glands and kidneys are normal. There is no evidence for a bowel obstruction. Note is made of a 1.4 cm nodular enhancing focus along left posterior aspect of the bladder. Sclerosis of the femoral heads is again noted. There is extensive aortoiliac plaque. 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 This is unchanged. There is trace ascites within the pelvis. There is a small amount of ascites within the abdomen. A biliary stent remains in place. There is no biliary ductal dilatation. IMPRESSION: 1. Trace fluid and gas within the cholecystectomy bed which has decreased since CT of August 28, 2018. Increase in infiltration along the operative bed drain that involves the abdominal wall musculature. This raises the possibility of an infectious process with cellulitis and infected drain. No abscess. Trace abdominal and pelvic ascites. 2. Interval improvement in peripancreatic infiltration suggestive of improving pancreatitis. Biliary drain in place. No biliary ductal dilatation. 3. 1.4 cm nodular enhancing focus along the left posterior aspect of the bladder which favors a urothelial lesion. Nonemergent urologic consultation is recommended. Electronically signed by: Levy Shepherd M.D.
[2018-09-16] MEDS ORDERED: GLUCOSE 40% GEL 15 GM TUBE PO PRN (19:57)
[2018-09-16] MEDS ORDERED: POTASSIUM CHLORIDE 20 MEQ TABCR PO STA (19:57)
[2018-09-16] MEDS ORDERED: DEXTROSE 50% 50 ML SYRINGE IV PRN (19:57)
[2018-09-16] MEDS ORDERED: MAGNESIUM SULFATE / D5W 1 GM/100 ML BAG IV ONE (19:57)
[2018-09-16] MEDS ORDERED: CARBOHYDRATES FOR HYPOGLYCEMIA PO PRN (19:57)
[2018-09-16] MEDS ORDERED: GLUCAGON FOR INJ 1 MG VIAL SQ PRN (19:57)
[2018-09-16] MEDS ORDERED: GLUCOSE 10 TABS/TUBE PO PRN (19:57)
--- NOTE | 2018-09-16 20:43 | Pharmacy Report ---
Pharmacy Abx Dose Short Note - Date of Service September 16, 2018 - Assessment & Plan Laboratory Tests 09/16/18 09/16/18 12:02 12:02 WBC 21.29 H Creatinine 0.89 Est Cr Clr Drug Dosing 75.0 Assessment: 73 yo Male receiving VANC/ZOSYN-IV for treatment of sepsis 2nd SST * Day # 1 of antimicrobial therapy. Pertinent PMH: Type-II DM Plan: Vanc-IV: * Estimated pharmacokinetics: Vd~0.7 L/kg, Ke~0.0666 hr-1, T 1/2~10 hrs * LOADING DOSE: VANC 1500 mg (~20mg/kg) IV x 1, then * MAINTENANCE DOSE: VANC 1250mg (~17mg/kg) IV q 12 hours. * Goal trough level: 15 to 20 mcg/mL * VANC Trough level ordered @ [facility] prior to 09/18/18 0000 dose Piperacillin/Tazobactam Extended Infusion: 4.5g IV bolus, then 3.375g IV q 8 hrs for est CrCL > 20mL/min (4-6 hrs after load). Pharmacy will continue to follow and will adjust dose/frequency as necessary. Thank you.
[2018-09-16] MEDS: INSULIN ASPART 100 UNITS/ML 3 ML PEN SC SCH (20:52)
[2018-09-16] MEDS: RIVAROXABAN 15 MG TAB PO SCH (20:53)
[2018-09-16] MEDS: EZETIMIBE 10 MG TABLET PO SCH (20:53)
[2018-09-16] MEDS: LISINOPRIL 20 MG TAB PO SCH (20:53)
[2018-09-16] MEDS ORDERED: levETIRAcetam 500 MG TAB PO SCH (21:00)
[2018-09-16] MEDS: CEROVITE ADV FORMULA TAB PO SCH (21:12)
[2018-09-16] MEDS: PIPERACILLIN/TAZOBACTAM 3.375 GM in DEXTROSE 5% 100 ML IV SCH (22:10)
[2018-09-16] MEDS: SODIUM CHLORIDE 0.9% 1000ML 1,000 ML IV SCH (22:10)
[2018-09-17 00:22] LABS: Appearance Urine Clear (Clear); Bacteria Urine Automated Negative (Negative); Bilirubin Urine Negative (Negative); Blood Urine 1+ (Negative); Cast Urine Automated 0 /lpf (0-5); Color Urine Yellow; Glucose Urine UA Negative (Negative); Ketones Urine Negative (Negative); Leukocyte Esterase Urine Negative (Negative); Nitrite Urine Negative (Negative); Protein Urine Negative (Negative); RBC Urine Automated 0-4 /hpf (0-4); Specific Gravity Urine > 1.045 (1.000-1.030); Urobilinogen Urine Negative (Negative)
[2018-09-17] MEDS: VANCOMYCIN HCL 1,250 MG in SODIUM CHLORIDE 0.9% 250 ML IV SCH ×3 (00:44→21:27)
[2018-09-17] MEDS: levETIRAcetam ORAL SOLN 100MG/ML PO SCH ×3 (00:44→21:03)
[2018-09-17] MEDS: ACETAMINOPHEN 325 MG TAB PO PRN ×3 (00:56→14:34)
[2018-09-17] MEDS: PANTOprazole 40 MG TAB PO SCH (06:04)
[2018-09-17] MEDS: PIPERACILLIN/TAZOBACTAM 3.375 GM in DEXTROSE 5% 100 ML IV SCH ×3 (06:04→21:08)
[2018-09-17 06:56] LABS: BUN Creatinine Ratio 25.4 (10-20); Calcium 7.7 mg/dl (8.5-10.1); Creatinine Clr Calc Pharmacy 110.5 ml/min; Est GFR (African American) 116.4; Est GFR (Non-African American) 100.5; Magnesium 2.2 mg/dl (1.8-2.4); Potassium 3.7 mmol/L (3.5-5.1)
[2018-09-17 07:04] LABS: Albumin Globulin Ratio 0.6 (0.9-2); Bilirubin,Total 0.5 mg/dl (0.2-1); Globulin 3.5 gm/dl (2.5-4.0); Total Protein 5.5 gm/dl (6.4-8.2)
[2018-09-17 07:32] LABS: Basophils % (auto) 0.6 %; Eosinophils # (auto) 1.61 K/uL (0-0.5); Eosinophils % (auto) 9.7 %; Hematocrit (blood only) 33.9 % (42-52); Hemoglobin 10.9 g/dL (14.0-18.0); Immature Granulocytes # (auto) 0.06 K/uL (0.00-0.02); Immature Granulocytes % (auto) 0.4 %; Lymphocytes % (auto) 9.6 %; Mean Corpuscular Hgb Conc 32.2 g/dL (32-36); Mean Corpuscular Volume 92.4 fL (80-100); Mean Platelet Volume 9.7 fL (7.4-10.4); Monocytes # (auto) 1.29 K/uL (0.11-0.59); Monocytes % (auto) 7.7 %; Neutrophils # (auto) 11.99 K/uL (1.4-6.5); Platelet Count 341 K/uL (130-400); RDW Coefficient of Variation 13.9 % (11.5-14.5); Red Blood Count 3.67 M/uL (4.7-6.1); White Blood Count 16.65 K/uL (4.8-10.8)
[2018-09-17] MEDS: INSULIN ASPART 100 UNITS/ML 3 ML PEN SC SCH ×4 (08:19→20:36)
[2018-09-17] MEDS: RIVAROXABAN 15 MG TAB PO SCH ×2 (08:21→17:33)
[2018-09-17] MEDS: LISINOPRIL 20 MG TAB PO SCH ×2 (08:22→21:03)
--- NOTE | 2018-09-17 08:32 | Surgery Progress Note ---
Date of Service September 17, 2018 Assessment & Plan (1) Cellulitis of drainage site, post-operative: 73 year-old male who is currently 4 weeks s/p laparoscopic cholecystectomy for gangrenous cholecystitis and 3 weeks 6 days s/p ERCP for postop bile leak. CARA drain in place. Presented to emergency department with abdominal pain, chills, sweats, and vomiting. CARA drain slightly removed by accident and sutures removed. Mild erythema surrounding drain site on inspection, no abscess. CT scan showing infiltration along surgical drain concerning for infection/cellulitis, no abscess. Leukocytosis of improved to 16K, lactic acid normal. T. bili and lfts wnl. Plan: Cara drain removed, dressing placed. Change as needed No evidence of abscess/collection to be drained. No surgical intervention required Recommend IV Abx and to monitor cbc, await culture results May have regular diet Biliary stent removal in about 4 weeks per GI recommendations Continue medical management (2) History of cholecystectomy: (3) Bile leak, postoperative: Dr. Osborn has seen and examined pt, agrees with above. Subjective feeling better today still having abdominal pain at drain site, improved no nausea so far today appetite improving passing gas urinating okay Physical Exam Constitutional: WD/WN, vitals as above Respiratory: normal respiratory effort; no respiratory distress Gastrointestinal (Abdomen): Inspection/Auscultation: abdomen normal to inspection; abdomen not distended and + abnormal bowel sounds Percussion/Palpation: + abdomen tender (at prior right drain site, with mild erythema, no rigidity) and abdomen soft; no guarding and abdomen not rigid Skin: no rashes, warm and dry Erythema surrounding drain site, no induration or fluctuance Psychiatric: A+Ox3, euthymic affect Results & Data Vital Signs (Past 12 Hours) Vital Signs Temp Pulse Pulse Resp BP Pulse Ox 09/17/18 07:34 88 09/17/18 07:32 36.6 C 87 18 137/75 97 09/17/18 04:04 36.7 C 87 16 110/62 93 09/17/18 00:02 36.3 C L 90 18 107/65 96 Laboratory Results 09/17/18 09/17/18 09/17/18 Range/Units 07:49 06:03 06:02 WBC 16.65 H (4.8-10.8) K/uL RBC 3.67 L (4.7-6.1) M/uL Hgb 10.9 L (14.0-18.0) g/dL Hct 33.9 L (42-52) % MCV 92.4 (80-100) fL MCH 29.7 (25-34) pg MCHC 32.2 (32-36) g/dL RDW Std Deviation 47.0 H (36.4-46.3) fL RDW Coeff of Araceli 13.9 (11.5-14.5) % Plt Count 341 (130-400) K/uL MPV 9.7 (7.4-10.4) fL Immature Gran % (Auto) 0.4 % Neut % (Auto) 72.0 % Lymph % (Auto) 9.6 % [place] % (Auto) 7.7 % Eos % (Auto) 9.7 % Baso % (Auto) 0.6 % Immature Gran # (Auto) 0.06 H (0.00-0.02) K/uL Neut # (Auto) 11.99 H (1.4-6.5) K/uL Lymph # (Auto) 1.60 (1.2-3.4) K/uL [place] # (Auto) 1.29 H (0.11-0.59) K/uL Eos # (Auto) 1.61 H (0-0.5) K/uL Baso # (Auto) 0.10 (0-0.2) K/uL PT (9.0-12.0) Seconds INR (0.9-1.1) APTT (21.0-31.0) Seconds PTT Ratio VBG pH (7.36-7.41) VBG pCO2 (38-50) mmHg VBG pO2 mmHg VBG HCO3 mmol/L VBG O2 Saturation % VBG Base Excess mEq/L Barometric Pressure mm/Hg Sodium 140 (136-145) mmol/L Potassium 3.7 (3.5-5.1) mmol/L Chloride 109 H (98-107) mmol/L Carbon Dioxide 27 (21-32) mmol/L Anion Gap 4.0 (3-11) BUN 15 (7-18) mg/dl Creatinine 0.60 (0.6-1.4) mg/dl Est Cr Clr Drug Dosing 110.5 ml/min Est GFR ( Amer) 116.4 Est GFR (Non-Af Amer) 100.5 BUN/Creatinine Ratio 25.4 H (10-20) Glucose 129 H (70-99) mg/dl POC Glucose 136 H (70-99) Lactate (0.4-2.0) mmol/L Calcium 7.7 L (8.5-10.1) mg/dl Phosphorus (2.5-4.9) mg/dl Magnesium 2.2 (1.8-2.4) mg/dl Total Bilirubin 0.5 (0.2-1) mg/dl Direct Bilirubin (0-0.2) mg/dl AST 9 L (15-37) U/L ALT 20 (12-78) U/L Alkaline Phosphatase 67 (45-117) U/L Troponin I (0-0.045) ng/ml Total Protein 5.5 L (6.4-8.2) gm/dl Albumin 2.0 L (3.4-5.0) gm/dl Globulin 3.5 (2.5-4.0) gm/dl Albumin/Globulin Ratio 0.6 L (0.9-2) Urine Color Urine Appearance (Clear) Urine pH (4.5-7.5) Ur Specific [place] (1.000-1.030) Urine Protein (Negative) Urine Glucose (UA) (Negative) Urine Ketones (Negative) Urine Blood (Negative) Urine Nitrite (Negative) Urine Bilirubin (Negative) Urine Urobilinogen (Negative) Ur Leukocyte Esterase (Negative) Urine WBC (Auto) (0-5) /hpf Urine RBC (Auto) (0-4) /hpf U Hyaline Cast (Auto) (0-5) /lpf U Epithel Cells (Auto) (0-5) /lpf Urine Bacteria (Auto) (Negative) Nasal Screen MRSA (PCR) (Negative) 09/16/18 09/16/18 09/16/18 Range/Units Unknown Unknown 19:59 WBC (4.8-10.8) K/uL RBC (4.7-6.1) M/uL Hgb (14.0-18.0) g/dL Hct (42-52) % MCV (80-100) fL MCH (25-34) pg MCHC (32-36) g/dL RDW Std Deviation (36.4-46.3) fL RDW Coeff of Araceli (11.5-14.5) % Plt Count (130-400) K/uL MPV (7.4-10.4) fL Immature Gran % (Auto) % Neut % (Auto) % Lymph % (Auto) % [place] % (Auto) % Eos % (Auto) % Baso % (Auto) % Immature Gran # (Auto) (0.00-0.02) K/uL Neut # (Auto) (1.4-6.5) K/uL Lymph # (Auto) (1.2-3.4) K/uL [place] # (Auto) (0.11-0.59) K/uL Eos # (Auto) (0-0.5) K/uL Baso # (Auto) (0-0.2) K/uL PT (9.0-12.0) Seconds INR (0.9-1.1) APTT (21.0-31.0) Seconds PTT Ratio VBG pH (7.36-7.41) VBG pCO2 (38-50) mmHg VBG pO2 mmHg VBG HCO3 mmol/L VBG O2 Saturation % VBG Base Excess mEq/L Barometric Pressure mm/Hg Sodium (136-145) mmol/L Potassium (3.5-5.1) mmol/L Chloride (98-107) mmol/L Carbon Dioxide (21-32) mmol/L Anion Gap (3-11) BUN (7-18) mg/dl Creatinine (0.6-1.4) mg/dl Est Cr Clr Drug Dosing ml/min Est GFR ( Amer) Est GFR (Non-Af Amer) BUN/Creatinine Ratio (10-20) Glucose (70-99) mg/dl POC Glucose 168 H (70-99) Lactate (0.4-2.0) mmol/L Calcium (8.5-10.1) mg/dl Phosphorus (2.5-4.9) mg/dl Magnesium (1.8-2.4) mg/dl Total Bilirubin (0.2-1) mg/dl Direct Bilirubin (0-0.2) mg/dl AST (15-37) U/L ALT (12-78) U/L Alkaline Phosphatase (45-117) U/L Troponin I (0-0.045) ng/ml Total Protein (6.4-8.2) gm/dl Albumin (3.4-5.0) gm/dl Globulin (2.5-4.0) gm/dl Albumin/Globulin Ratio (0.9-2) Urine Color Yellow Urine Appearance Clear (Clear) Urine pH 5.0 (4.5-7.5) Ur Specific [place] > 1.045 H (1.000-1.030) Urine Protein Negative (Negative) Urine Glucose (UA) Negative (Negative) Urine Ketones Negative (Negative) Urine Blood 1+ H (Negative) Urine Nitrite Negative (Negative) Urine Bilirubin Negative (Negative) Urine Urobilinogen Negative (Negative) Ur Leukocyte Esterase Negative (Negative) Urine WBC (Auto) 1-5 (0-5) /hpf Urine RBC (Auto) 0-4 (0-4) /hpf U Hyaline Cast (Auto) 0 (0-5) /lpf U Epithel Cells (Auto) 5-10 H (0-5) /lpf Urine Bacteria (Auto) Negative (Negative) Nasal Screen MRSA (PCR) Negative (Negative) 09/16/18 09/16/18 09/16/18 Range/Units 13:05 13:05 12:02 WBC (4.8-10.8) K/uL RBC (4.7-6.1) M/uL Hgb (14.0-18.0) g/dL Hct (42-52) % MCV (80-100) fL MCH (25-34) pg MCHC (32-36) g/dL RDW Std Deviation (36.4-46.3) fL RDW Coeff of Araceli (11.5-14.5) % Plt Count (130-400) K/uL MPV (7.4-10.4) fL Immature Gran % (Auto) % Neut % (Auto) % Lymph % (Auto) % [place] % (Auto) % Eos % (Auto) % Baso % (Auto) % Immature Gran # (Auto) (0.00-0.02) K/uL Neut # (Auto) (1.4-6.5) K/uL Lymph # (Auto) (1.2-3.4) K/uL [place] # (Auto) (0.11-0.59) K/uL Eos # (Auto) (0-0.5) K/uL Baso # (Auto) (0-0.2) K/uL PT (9.0-12.0) Seconds INR (0.9-1.1) APTT (21.0-31.0) Seconds PTT Ratio VBG pH 7.46 H (7.36-7.41) VBG pCO2 40 (38-50) mmHg VBG pO2 46 mmHg VBG HCO3 28 mmol/L VBG O2 Saturation 81.8 % VBG Base Excess 3.5 mEq/L Barometric Pressure 732.0 mm/Hg Sodium 139 (136-145) mmol/L Potassium 3.4 L (3.5-5.1) mmol/L Chloride 102 (98-107) mmol/L Carbon Dioxide 27 (21-32) mmol/L Anion Gap 10.0 (3-11) BUN 19 H (7-18) mg/dl Creatinine 0.89 (0.6-1.4) mg/dl Est Cr Clr Drug Dosing 75.0 ml/min Est GFR ( Amer) 99.0 Est GFR (Non-Af Amer) 85.4 BUN/Creatinine Ratio 21.4 H (10-20) Glucose 208 H (70-99) mg/dl POC Glucose (70-99) Lactate 1.6 (0.4-2.0) mmol/L Calcium 8.7 (8.5-10.1) mg/dl Phosphorus 2.8 (2.5-4.9) mg/dl Magnesium 1.3 L (1.8-2.4) mg/dl Total Bilirubin 0.7 (0.2-1) mg/dl Direct Bilirubin 0.2 (0-0.2) mg/dl AST 18 (15-37) U/L ALT 29 (12-78) U/L Alkaline Phosphatase 86 (45-117) U/L Troponin I < 0.015 (0-0.045) ng/ml Total Protein 6.7 (6.4-8.2) gm/dl Albumin 2.6 L (3.4-5.0) gm/dl Globulin 4.1 H (2.5-4.0) gm/dl Albumin/Globulin Ratio 0.6 L (0.9-2) Urine Color Urine Appearance (Clear) Urine pH (4.5-7.5) Ur Specific [place] (1.000-1.030) Urine Protein (Negative) Urine Glucose (UA) (Negative) Urine Ketones (Negative) Urine Blood (Negative) Urine Nitrite (Negative) Urine Bilirubin (Negative) Urine Urobilinogen (Negative) Ur Leukocyte Esterase (Negative) Urine WBC (Auto) (0-5) /hpf Urine RBC (Auto) (0-4) /hpf U Hyaline Cast (Auto) (0-5) /lpf U Epithel Cells (Auto) (0-5) /lpf Urine Bacteria (Auto) (Negative) Nasal Screen MRSA (PCR) (Negative) 09/16/18 09/16/18 Range/Units 12:02 12:02 WBC 21.29 H (4.8-10.8) K/uL RBC 4.49 L (4.7-6.1) M/uL Hgb 13.6 L (14.0-18.0) g/dL Hct 41.0 L (42-52) % MCV 91.3 (80-100) fL MCH 30.3 (25-34) pg MCHC 33.2 (32-36) g/dL RDW Std Deviation 45.1 (36.4-46.3) fL RDW Coeff of Araceli 13.7 (11.5-14.5) % Plt Count 403 H (130-400) K/uL MPV 10.5 H (7.4-10.4) fL Immature Gran % (Auto) 0.3 % Neut % (Auto) 81.4 % Lymph % (Auto) 8.8 % [place] % (Auto) 8.2 % Eos % (Auto) 0.9 % Baso % (Auto) 0.4 % Immature Gran # (Auto) 0.07 H (0.00-0.02) K/uL Neut # (Auto) 17.33 H (1.4-6.5) K/uL Lymph # (Auto) 1.88 (1.2-3.4) K/uL [place] # (Auto) 1.74 H (0.11-0.59) K/uL Eos # (Auto) 0.19 (0-0.5) K/uL Baso # (Auto) 0.08 (0-0.2) K/uL PT 13.7 H (9.0-12.0) Seconds INR 1.4 H (0.9-1.1) APTT 33.0 H (21.0-31.0) Seconds PTT Ratio 1.2 VBG pH (7.36-7.41) VBG pCO2 (38-50) mmHg VBG pO2 mmHg VBG HCO3 mmol/L VBG O2 Saturation % VBG Base Excess mEq/L Barometric Pressure mm/Hg Sodium (136-145) mmol/L Potassium (3.5-5.1) mmol/L Chloride (98-107) mmol/L Carbon Dioxide (21-32) mmol/L Anion Gap (3-11) BUN (7-18) mg/dl Creatinine (0.6-1.4) mg/dl Est Cr Clr Drug Dosing ml/min Est GFR ( Amer) Est GFR (Non-Af Amer) BUN/Creatinine Ratio (10-20) Glucose (70-99) mg/dl POC Glucose (70-99) Lactate (0.4-2.0) mmol/L Calcium (8.5-10.1) mg/dl Phosphorus (2.5-4.9) mg/dl Magnesium (1.8-2.4) mg/dl Total Bilirubin (0.2-1) mg/dl Direct Bilirubin (0-0.2) mg/dl AST (15-37) U/L ALT (12-78) U/L Alkaline Phosphatase (45-117) U/L Troponin I (0-0.045) ng/ml Total Protein (6.4-8.2) gm/dl Albumin (3.4-5.0) gm/dl Globulin (2.5-4.0) gm/dl Albumin/Globulin Ratio (0.9-2) Urine Color Urine Appearance (Clear) Urine pH (4.5-7.5) Ur Specific [place] (1.000-1.030) Urine Protein (Negative) Urine Glucose (UA) (Negative) Urine Ketones (Negative) Urine Blood (Negative) Urine Nitrite (Negative) Urine Bilirubin (Negative) Urine Urobilinogen (Negative) Ur Leukocyte Esterase (Negative) Urine WBC (Auto) (0-5) /hpf Urine RBC (Auto) (0-4) /hpf U Hyaline Cast (Auto) (0-5) /lpf U Epithel Cells (Auto) (0-5) /lpf Urine Bacteria (Auto) (Negative) Nasal Screen MRSA (PCR) (Negative)
[2018-09-17] MEDS: SODIUM CHLORIDE 0.9% 1000ML 1,000 ML IV SCH (12:25)
--- NOTE | 2018-09-17 14:35 | Hospitalist Progress Note ---
Date of Service September 17, 2018 Assessment & Plan (1) Sepsis: (2) Cellulitis of drainage site, post-operative: -Patient sent from [facility] for evaluation of fever and pain around CARA site -S/P cholecystectomy on 08/20 complicated by bile leak with ERCP and biliary stent placement on 08/21 -Erythema noted around CARA drain insertion site -CT ABD/pelvis showing increase in infiltration along the operative bed drain that involves the abdominal wall musculature, this raises the possibility of an infectious process with cellulitis and infected drain, no abscess. -LFTs WNL -Received IV Vanco and Zosyn in the ED, will continue -Blood culture sent, obtain culture from CARA drain insertion site -Appreciate surgery input and recommendation -CARA drain removed by general surgery in the ED; case discussed with Brittany Mata PA-C -no plans for surgical intervention at this time -No drainage from the CARA withdrawn site -Right upper quadrant remains tender -Clinically a bit improved (3) Hypoxia: -In the ED, noted to be 88% on room air -this improved with oxygen 2 L via nasal cannula -CT chest showing extensive atelectasis, this is likely the cause of patient's hypoxia -Incentive spirometer ordered -No documented infiltration -There is also lower lobe bronchial wall thickening noted -on Zosyn and Vanco as above -Will observe (4) Lesion of bladder: -CT ABD/pelvis showing 1.4 cm nodular enhancing focus along the left posterior aspect of the bladder which favors a urothelial lesion -Check UA-no blood and no suspected infection -We will get ultrasound of the bladder to document dilation further (5) Bile leak, postoperative: Status post ERCP and stent placement on 08/21 Stent will be removed in 8 weeks from the date of insertion LFTs have been normal and doubt any blockage (6) History of cholecystectomy: -S/P cholecystectomy on 08/20 which was complicated by bile leak and subsequent ERCP with biliary stent placement -Per GI, patient is to have stent in place until 09/30 -Discussed with GI-will not get a consult. -ERCP and stent removal as planned (7) History of pulmonary embolism: -On Xarelto, continue (8) DM type 2 (diabetes mellitus, type 2): -Hgb A1c 6.3, 07/2018 -Hold oral agents and utilize NovoLog per protocol while hospitalized (9) Seizure disorder: -Continue Keppra (10) History of stroke: -Aspirin discontinued when patient was placed on Xarelto for PE -Continue Zetia (11) HTN (hypertension): -BP controlled, continue lisinopril (12) DVT prophylaxis: -On Xarelto PT and OT evaluation Family member want the patient to be at home Social service consulted Subjective 09/17 Patient was seen and examined in medical telemetry unit He has been complaining of pain in the right upper quadrant but denies any other symptoms Still feels to be chilly Denies any chest pain, shortness of breath, palpitation Has abdominal pain without nausea and/or vomiting Review of Systems Review of Systems: All systems reviewed and are unremarkable except as noted below Constitutional: + chills and + weakness Respiratory: no dyspnea Gastrointestinal: + abdominal pain, + bloating and + nausea; no vomiting Musculoskeletal: No acute arthritis in any of the joints Neurologic: 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 Physical Exam Physical Exam: Lying in bed comfortably Constitutional: well developed and + ill appearing; no acute distress Eyes: PERRL, conjunctivae normal, anicteric sclerae ENMT: external ear and nose normal, oropharynx normal Neck: trachea midline, no thyromegaly Respiratory: normal respiratory effort; no respiratory distress Auscultation: + diminished lung sounds Cardiovascular: Rate/Rhythm: regular rate and regular rhythm Gastrointestinal (Abdomen): Inspection/Auscultation: + abdomen distended (Mildly distended) and normal bowel sounds Percussion/Palpation: + abdomen tender (Right quadrants but especially right upper quadrant,), + guarding (Right upper quadrant) and abdomen soft Musculoskeletal: No acute arthritis in any of the joints Neurologic: Has flaccid left upper extremity weakness from previous stroke Lymphatic: no cervical or axillary lymphadenopathy Results & Data Vital Signs (Past 12 Hours) Vital Signs Temp Pulse Pulse Resp BP Pulse Ox 09/17/18 11:27 36.5 C 82 18 114/70 97 09/17/18 07:34 88 09/17/18 07:32 36.6 C 87 18 137/75 97 09/17/18 04:04 36.7 C 87 16 110/62 93 Laboratory Results Short CBC 09/17/18 Range/Units 06:03 WBC 16.65 H (4.8-10.8) K/uL Hgb 10.9 L (14.0-18.0) g/dL Hct 33.9 L (42-52) % Plt Count 341 (130-400) K/uL BMP 09/17/18 06:02 Sodium 140 Potassium 3.7 Chloride 109 H Carbon Dioxide 27 BUN 15 Creatinine 0.60 Glucose 129 H Calcium 7.7 L Liver Function 09/17/18 Range/Units 06:02 Total Bilirubin 0.5 (0.2-1) mg/dl AST 9 L (15-37) U/L ALT 20 (12-78) U/L Alkaline Phosphatase 67 (45-117) U/L Albumin 2.0 L (3.4-5.0) gm/dl Urine 09/16/18 Range/Units Unknown Urine Color Yellow Urine Appearance Clear (Clear) Urine pH 5.0 (4.5-7.5) Ur Specific [place] > 1.045 H (1.000-1.030) Urine Protein Negative (Negative) Urine Glucose (UA) Negative (Negative) Medications Administered Current Inpatient Medications Acetaminophen (Tylenol) 650 mg PO Q4H PRN PRN Reason: pain/fever Stop: 10/16/18 19:56 Last Admin: 09/17/18 14:34 Dose: 650 mg Documented by: Dextrose (Dextrose 50%) 25 - 50 ml IV UD PRN; Protocol PRN Reason: Hypoglycemia Protocol Stop: 10/16/18 19:56 Ezetimibe (Zetia) 10 mg PO QPM [facility] Stop: 10/16/18 20:59 Last Admin: 09/16/18 20:53 Dose: 10 mg Documented by: Glucagon (Glucagen) 1 mg SQ UD PRN; Protocol PRN Reason: Hypoglycemia Protocol Stop: 10/16/18 19:56 Glucose (Glucose 40%) 15 - 30 gm PO UD PRN; Protocol PRN Reason: Hypoglycemia Protocol Stop: 10/16/18 19:56 Glucose (Dex4 Glucose) 4 - 8 tabs PO UD PRN; Protocol PRN Reason: Hypoglycemia Protocol Stop: 10/16/18 19:56 Sodium Chloride (Nss 1000ml) 1,000 mls @ 80 mls/hr IV .[id number] [facility] Stop: 10/16/18 19:56 Last Admin: 09/17/18 12:25 Dose: 80 mls/hr Documented by: Piperacillin Sod/Tazobactam (Sod 3.375 gm/ Dextrose) 115 mls @ 28.75 mls/hr IV Q8H [facility]; Protocol Stop: 09/26/18 20:59 Last Admin: 09/17/18 12:42 Dose: 28.8 mls/hr Documented by: Vancomycin HCl 1,250 mg/ (Sodium Chloride) 275 mls @ 125 mls/hr IV Q10H [facility] Stop: 09/26/18 21:59 Insulin Aspart (Novolog Flexpen) 0 units SC ACHS [facility] Stop: 10/16/18 20:59 Last Admin: 09/17/18 12:27 Dose: 2 units Documented by: Levetiracetam (Keppra) 1,500 mg PO BID [facility] Stop: 10/16/18 22:59 Last Admin: 09/17/18 08:22 Dose: 1,500 mg Documented by: Lisinopril (Zestril) 20 mg PO AMHS [facility] Stop: 10/16/18 20:59 Last Admin: 09/17/18 08:22 Dose: 20 mg Documented by: Miscellaneous (Carbohydrates For Hypoglycemia) 15 - 30 gm PO UD PRN PRN Reason: Hypoglycemia Treatment Stop: 10/16/18 19:56 Miscellaneous Information (Consult) 1 ea N/A UD PRN PRN Reason: Consult Stop: 10/16/18 12:54 Miscellaneous Information (Consult) 1 ea N/A UD PRN PRN Reason: Consult Stop: 10/16/18 13:58 Multivitamins/Minerals (Multivitamin W/ Minerals Tab) 1 tab PO PM [facility] Stop: 10/16/18 20:59 Last Admin: 09/16/18 21:12 Dose: 1 tab Documented by: Pantoprazole Sodium (Protonix) 40 mg PO DAILYBB [facility] Stop: 10/17/18 06:29 Last Admin: 09/17/18 06:04 Dose: 40 mg Documented by: Rivaroxaban (Xarelto) 15 mg PO BIDM [facility] Stop: 09/29/18 23:59 Rivaroxaban (Xarelto) 20 mg PO QDD [facility] Stop: 10/30/18 16:29
[2018-09-17] MEDS: CEROVITE ADV FORMULA TAB PO SCH (21:03)
[2018-09-17] MEDS: EZETIMIBE 10 MG TABLET PO SCH (21:03)
[2018-09-17] MEDS ORDERED: VANCOMYCIN TROUGH ONE (23:30)
[2018-09-18] MEDS: ACETAMINOPHEN 325 MG TAB PO PRN (03:03)
[2018-09-18] MEDS: SODIUM CHLORIDE 0.9% 1000ML 1,000 ML IV SCH ×3 (03:58→17:01)
[2018-09-18] MEDS: PIPERACILLIN/TAZOBACTAM 3.375 GM in DEXTROSE 5% 100 ML IV SCH ×3 (05:05→20:33)
[2018-09-18] MEDS: PANTOprazole 40 MG TAB PO SCH (06:14)
[2018-09-18] MEDS ORDERED: VANCOMYCIN TROUGH ONE (07:30)
[2018-09-18] MEDS: levETIRAcetam ORAL SOLN 100MG/ML PO SCH ×2 (07:45→20:33)
[2018-09-18] MEDS: RIVAROXABAN 15 MG TAB PO SCH ×2 (07:45→17:09)
[2018-09-18] MEDS: LISINOPRIL 20 MG TAB PO SCH ×2 (07:45→20:32)
[2018-09-18 07:47] LABS: Basophils # (auto) 0.05 K/uL (0-0.2); Basophils % (auto) 0.5 %; Eosinophils # (auto) 1.39 K/uL (0-0.5); Eosinophils % (auto) 14.3 %; Hematocrit (blood only) 34.1 % (42-52); Hemoglobin 11.1 g/dL (14.0-18.0); Immature Granulocytes # (auto) 0.02 K/uL (0.00-0.02); Immature Granulocytes % (auto) 0.2 %; Lymphocytes # (auto) 1.29 K/uL (1.2-3.4); Lymphocytes % (auto) 13.3 %; Mean Corpuscular Hgb Conc 32.6 g/dL (32-36); Mean Corpuscular Volume 91.4 fL (80-100); Mean Platelet Volume 9.6 fL (7.4-10.4); Monocytes # (auto) 0.69 K/uL (0.11-0.59); Monocytes % (auto) 7.1 %; Neutrophils # (auto) 6.28 K/uL (1.4-6.5); Neutrophils % (auto) 64.6 %; Platelet Count 330 K/uL (130-400); RDW Coefficient of Variation 13.5 % (11.5-14.5); RDW Standard Deviation 44.7 fL (36.4-46.3); Red Blood Count 3.73 M/uL (4.7-6.1); White Blood Count 9.72 K/uL (4.8-10.8)
[2018-09-18 08:19] LABS: Albumin Level 1.9 gm/dl (3.4-5.0); BUN Creatinine Ratio 17.3 (10-20); Calcium 8.2 mg/dl (8.5-10.1); Creatinine Clr Calc Pharmacy 110.5 ml/min; Est GFR (African American) 116.4; Est GFR (Non-African American) 100.5; Potassium 3.4 mmol/L (3.5-5.1)
[2018-09-18 08:27] LABS: Albumin Globulin Ratio 0.5 (0.9-2); Bilirubin,Total 0.4 mg/dl (0.2-1); Globulin 3.6 gm/dl (2.5-4.0); Phosphorus 2.1 mg/dl (2.5-4.9); Total Protein 5.5 gm/dl (6.4-8.2)
[2018-09-18] MEDS: INSULIN ASPART 100 UNITS/ML 3 ML PEN SC SCH ×4 (08:30→20:33)
[2018-09-18] MEDS: VANCOMYCIN HCL 1,250 MG in SODIUM CHLORIDE 0.9% 250 ML IV SCH (08:32)
[2018-09-18] MEDS ORDERED: POTASSIUM PHOS 3 MMOL/1 ML INFUSION IV STA (08:34)
[2018-09-18] MEDS ORDERED: POTASSIUM PHOSPHATE 15 MMOL in SODIUM CHLORIDE 0.9% 250 ML IV ONE (09:15)
--- NOTE | 2018-09-18 09:59 | Ultrasound Report ---
BLADDER ULTRASOUND CLINICAL HISTORY: Urothelial lesion. COMPARISON STUDY: CT of the abdomen and pelvis September 16, 2018. TECHNIQUE: Sonography of the bladder as well as the kidneys was performed FINDINGS: The right kidney measures 11.7 x 6.3 x 6.2 cm and the left measures 11.9 x 6.4 x 5.6 cm. Th ere is no hydronephrosis. No renal calculi or masses are identified. The right ureteral jet was ident ified. The left ureteral jet was not identified. Note was made of a 1.9 x 0.7 x 1.4 cm echogenic nonm obile focus along the left posterior aspect of the bladder which corresponds to the finding shown on CT of September 16, 2018. No color flow is identified within this focus however this is suggestive of a ur othelial lesion. IMPRESSION: 1. 1.9 cm echogenic lesion along the left posterior aspect of the bladder which corresponds to the fi nding on CT of September 16, 2018. This suggests a urothelial lesion. Urology consultation for considerati on for cystoscopy is recommended. 2. No hydronephrosis. Electronically signed by: Levy Shepherd M.D. 09/18/2018 9:57 AM
--- NOTE | 2018-09-18 15:12 | Hospitalist Progress Note ---
Date of Service September 18, 2018 Assessment & Plan (1) Sepsis: (2) Cellulitis of drainage site, post-operative: Patient was sent from [facility] for evaluation of fever and pain around CARA site S/P cholecystectomy on 08/20 complicated by bile leak with ERCP and biliary stent placement on 08/21 CT ABD/pelvis showing increase in infiltration along the operative bed drain that involves the abdominal wall musculature, this raises the possibility of an infectious process with cellulitis and infected drain, no abscess. LFTs WNL CARA drain removed by general surgery in the ED Wound culture: Pansensitive Staph aureus Erythema around CARA drain insertion site improved Continue IV zosyn IV Vanco discontinued Blood culture: No growth to date Appreciate surgery Input No drainage from the CARA insertion site since hospitalization Clinically improving slowly Advance diet as tolerated (3) Hypoxia: In the ED, noted to be 88% on room air CT chest showing extensive atelectasis,likely the cause of patient's hypoxia Continue Incentive spirometer Currently saturating on room air (4) Lesion of bladder: CT ABD/pelvis showing 1.4 cm nodular enhancing focus along the left posterior aspect of the bladder which favors a urothelial lesion Bladder USD:1.9 cm echogenic lesion along the left posterior aspect of the bladder which corresponds to the finding on CT of September 16, 2018. This suggests a urothelial lesion. Urology consultation for consideration for cystoscopy is recommended. No hydronephrosis. UA: Microscopic hematuria Consulted Urology for Input (5) Bile leak, postoperative: Status post ERCP and stent placement on 08/21 Stent will be removed in 8 weeks from the date of insertion LFTs have been normal and doubt any blockage (6) History of cholecystectomy: S/P cholecystectomy on 08/20 which was complicated by bile leak and subsequent ERCP with biliary stent placement Per GI, patient is to have stent in place until 09/30 Discussed with GI by ERCP and stent removal as planned as outpatient (7) History of pulmonary embolism: On Xarelto (8) DM type 2 (diabetes mellitus, type 2): Hgb A1c 6.3, 07/2018 Hold oral agents Continue NovoLog per protocol while hospitalized (9) Seizure disorder: Continue Keppra (10) History of stroke: Aspirin discontinued when patient was placed on Xarelto for PE Continue Zetia (11) HTN (hypertension): Stable continue lisinopril (12) DVT prophylaxis: On Xarelto Family member want the patient to be at home Social service consulted PT/OT Subjective Patient is seen and examined at bedside Complains of mild lower abdominal pain Tolerating diet Denies any chest pain, shortness of breath, dizziness Discussed about urothelial lesion with patient/family Review of Systems Review of Systems: All systems reviewed & are unremarkable except as noted in HPI & below Physical Exam Physical Exam: Physical Exam: Vitals signs as noted above General Appearance:Moderately built and nourished, no apparent distress Head: normocephalic, Atraumatic Eyes: normal inspection, EOMI Neck: supple, Trachea midline Respiratory/Chest: Decreased breath sounds, CTA Cardiovascular: S1, S2, No murmur Abdomen/GI:Soft, Lower abd mild tender, No guarding/rigidity, Bowel sounds present Extremities/Musculoskelatal:normal inspection, no edema Neurologic/Psych:AAOX3, Left sided weakness from Prior CVA Skin: normal color, warm Results & Data Vital Signs (Past 12 Hours) Vital Signs Temp Pulse Pulse Resp BP Pulse Ox 09/18/18 11:23 37.1 C 83 18 154/81 H 92 09/18/18 07:30 36.4 C L 76 18 150/75 H 93 09/18/18 07:05 76 09/18/18 03:56 36.8 C 82 16 134/71 96 Laboratory Results Short CBC 09/18/18 Range/Units 07:29 WBC 9.72 (4.8-10.8) K/uL Hgb 11.1 L (14.0-18.0) g/dL Hct 34.1 L (42-52) % Plt Count 330 (130-400) K/uL BMP 09/18/18 07:29 Sodium 141 Potassium 3.4 L Chloride 107 Carbon Dioxide 29 BUN 10 D Creatinine 0.60 Glucose 126 H Calcium 8.2 L Liver Function 09/18/18 Range/Units 07:29 Total Bilirubin 0.4 (0.2-1) mg/dl AST 12 L (15-37) U/L ALT 18 (12-78) U/L Alkaline Phosphatase 73 (45-117) U/L Albumin 1.9 L (3.4-5.0) gm/dl Diagnostic Findings Bladder USD: 1. 1.9 cm echogenic lesion along the left posterior aspect of the bladder which corresponds to the finding on CT of September 16, 2018. This suggests a urothelial lesion. Urology consultation for consideration for cystoscopy is recommended. 2. No hydronephrosis.
[2018-09-18] MEDS ORDERED: PANTOprazole 40 MG TAB PO STA (16:55)
--- NOTE | 2018-09-18 16:55 | Surgery Progress Note ---
Date of Service September 18, 2018 Assessment & Plan (1) Cellulitis of drainage site, post-operative: 73 year-old male who is currently 4 weeks and 1 day s/p laparoscopic cholecystectomy for gangrenous cholecystitis and 4 weeks s/p ERCP for postop bile leak. Presented to emergency department with abdominal pain at drain site. chills, sweats, and vomiting. CARA drain slightly removed by accident and sutures removed. Mild erythema surrounding drain site on inspection, no abscess. CT scan showing infiltration along surgical drain concerning for infection/cellulitis, no abscess. - Leukocytosis resolved . T. bili wnl. LFTS wnl other than slight increase in AST - afebrile - culture + staph aureus sensitive to zosyn, vancomycin discontinued Plan: Cara drain removed, dressing placed. Change as needed No evidence of abscess/collection to be drained. No surgical intervention required Continue IV Zosyn , consider transition to oral tomorrow? May have regular diet, add Protonix PO Biliary stent removal in about 4 weeks per GI recommendations PT/OT Case management Consider boost/breeze supplementation as albumin low Continue medical management Subjective feeling okay, not much better still with nausea no vomiting, tolerating liquids "Heartburn every time I eat", only takes TUMS at home +appetite would like something more to eat Pain still at drain site, not much improvement Physical Exam Constitutional: WD/WN, vitals as above no acute distress and not ill appearing Respiratory: normal respiratory effort; no respiratory distress Gastrointestinal (Abdomen): Inspection/Auscultation: abdomen normal to inspection; abdomen not distended Percussion/Palpation: + abdomen tender (at prior RUQ drain site) and abdomen soft; no guarding and abdomen not rigid Skin: no rashes, warm and dry RUQ drain site with dressing in place, mild erythema surrounding drain site, no induration or fluctuance Psychiatric: A+Ox3, euthymic affect Results & Data Vital Signs (Past 12 Hours) Vital Signs Temp Pulse Pulse Resp BP Pulse Ox 09/18/18 16:00 85 09/18/18 15:21 36.7 C 87 20 152/69 H 92 09/18/18 11:23 37.1 C 83 18 154/81 H 92 09/18/18 07:30 36.4 C L 76 18 150/75 H 93 09/18/18 07:05 76
[2018-09-18] MEDS ORDERED: FAMOTIDINE 20 MG TAB PO PRN (17:08)
[2018-09-18] MEDS: EZETIMIBE 10 MG TABLET PO SCH (20:31)
[2018-09-18] MEDS: CEROVITE ADV FORMULA TAB PO SCH (20:32)
[2018-09-19] MEDS: SODIUM CHLORIDE 0.9% 1000ML 1,000 ML IV SCH ×3 (04:29→23:45)
[2018-09-19] MEDS: PIPERACILLIN/TAZOBACTAM 3.375 GM in DEXTROSE 5% 100 ML IV SCH (04:30)
[2018-09-19 05:47] LABS: Hematocrit (blood only) 34.2 % (42-52); Hemoglobin 11.5 g/dL (14.0-18.0); Mean Corpuscular Hgb Conc 33.6 g/dL (32-36); Mean Corpuscular Volume 89.3 fL (80-100); Mean Platelet Volume 9.5 fL (7.4-10.4); Platelet Count 385 K/uL (130-400); RDW Standard Deviation 42.9 fL (36.4-46.3); Red Blood Count 3.83 M/uL (4.7-6.1); White Blood Count 9.19 K/uL (4.8-10.8)
[2018-09-19] MEDS: PANTOprazole 40 MG TAB PO SCH (05:55)
[2018-09-19 06:24] LABS: Calcium 7.8 mg/dl (8.5-10.1); Creatinine Clr Calc Pharmacy 136.3 ml/min; Est GFR (African American) 126.5; Est GFR (Non-African American) 109.2; Phosphorus 1.9 mg/dl (2.5-4.9)
[2018-09-19] MEDS ORDERED: POTASSIUM PHOS 3 MMOL/1 ML INFUSION IV STA (07:38)
[2018-09-19] MEDS ORDERED: POTASSIUM CHLORIDE 10 MEQ TABCR PO STA (07:38)
[2018-09-19] MEDS ORDERED: POTASSIUM PHOSPHATE 21 MMOL in SODIUM CHLORIDE 0.9% 500 ML IV ONE (07:45)
[2018-09-19] MEDS: levETIRAcetam ORAL SOLN 100MG/ML PO SCH ×2 (08:24→20:36)
[2018-09-19] MEDS: LISINOPRIL 20 MG TAB PO SCH ×2 (08:24→20:34)
[2018-09-19] MEDS: RIVAROXABAN 15 MG TAB PO SCH ×2 (08:24→17:04)
[2018-09-19] MEDS: INSULIN ASPART 100 UNITS/ML 3 ML PEN SC SCH ×4 (08:29→20:34)
--- NOTE | 2018-09-19 08:55 | Surgery Progress Note ---
Date of Service September 19, 2018 Assessment & Plan (1) Cellulitis of drainage site, post-operative: 73 year-old male who is currently 4 weeks and 2 days s/p laparoscopic cholecystectomy for gangrenous cholecystitis and 4 weeks 1 day s/p ERCP for postop bile leak. Presented to emergency department with abdominal pain at drain site, chills, sweats, and vomiting. CARA drain slightly removed by accident and sutures removed. Mild erythema surrounding drain site on inspection, no abscess. CT scan showing infiltration along surgical drain concerning for infection/cellulitis, no abscess. - Leukocytosis resolved . - afebrile - culture + staph aureus sensitive to zosyn, vancomycin discontinued Plan: Change dressing as needed No evidence of abscess/collection to be drained. No surgical intervention required Continue IV Zosyn , consider transition to oral ABx Continue DM diet Continue PO Protonix daily Biliary stent removal in about 4 weeks per GI recommendations PT/OT Case management Consider boost/breeze supplementation as albumin low Continue medical management Dr. Osborn has seen and examined pt, agrees with above Subjective feeling better today no abdominal pain, unless pressed on in the right side no nausea or vomiting tolerated DM diet this morning, no heartburn liquid bowel movements this morning Physical Exam Constitutional: WD/WN, vitals as above no acute distress Respiratory: normal respiratory effort; no respiratory distress Gastrointestinal (Abdomen): Inspection/Auscultation: abdomen normal to inspection; abdomen not distended Percussion/Palpation: + abdomen tender (right side at drain site) and abdomen soft; no guarding and abdomen not rigid Skin: no rashes, warm and dry Mild erythema at drain site, no induration or fluctuance Psychiatric: A+Ox3, euthymic affect Results & Data Vital Signs (Past 12 Hours) Vital Signs Temp Pulse Pulse Resp BP Pulse Ox 09/19/18 06:51 36.6 C 92 H 20 165/78 H 92 09/19/18 04:33 37 C 94 H 20 156/68 H 93 09/18/18 23:43 90 09/18/18 23:00 36.8 C 91 H 20 160/82 H 91
[2018-09-19] MEDS: cephALEXin 500 MG CAP PO SCH ×3 (09:09→20:34)
--- NOTE | 2018-09-19 10:32 | Urology Consultation ---
Date of Consultation September 19, 2018 Assessment & Plan (1) Lesion of bladder: Incidentally found, asymptomatic, 1.5cm posterior bladder lesion without obstruction. Discussed findings with patient and need for outpatient cystoscopy for further evaluation. All patient questions answered and he voiced good understanding of treatment plan. Worrisome symptoms reviewed. Outpatient urology follow up has been arranged: 10/01/18 @ 9:30am for cystoscopy with Dr. Harry [address] [facility] office, Thank you for allowing us to participate in the inpatient care of Mr. Terry. Please contact our service if we can be of further assistance during hospitalization. History of Present Illness Attending Physician: Prakash [place] MD History of Present Illness Mr. Terry is a 73 YO male admitted to the hospital for infected CARA drain s/p lap carlotta. We were consulted for evaluation of 1.5cm posterior bladder lesion which was found incidentally on CT scan and confirmed with renal/bladder US. No evidence of obstruction. Today, patient reports some fatigue but overall feeling well. Reports improvement with antibiotics. He has never seen a urologist. Has not been experiencing any urinary bother. No history of, or active, hematuria. Voiding spontaneously. No bladder pain or dysuria. Allergies Allergy/AdvReac Type Severity Reaction Status Date / Time lactose AdvReac Intermediate GI SYMPTOMS Verified 09/16/18 12:46 [id number] Reductase AdvReac Unknown MUSCLE Verified 09/16/18 12:46 Inhibitor CRAMPS Home Medications Home Medications Medication Instructions Recorded Confirmed Type ezetimibe [Zetia] 10 mg PO QPM 12/17/17 09/16/18 History levetiracetam 1,500 mg PO AMHS 12/17/17 09/16/18 History metformin 500 mg PO AMPM 12/17/17 09/16/18 History Men's 50 Plus Multivitamin 1 tab PO PM 08/19/18 09/16/18 History lisinopril 20 mg PO AMHS 09/06/18 09/16/18 History ciprofloxacin HCl 500 mg PO BID 09/16/18 09/16/18 History metronidazole 500 mg PO TID 09/16/18 09/16/18 History omeprazole 20 mg PO DAILYBB 09/16/18 09/16/18 History rivaroxaban [Xarelto] 15 mg PO AMHS 09/16/18 09/16/18 History Patient History Medical History History of pulmonary embolism (Chronic) History of right common carotid artery stent placement (Chronic) Left hemiparesis (Chronic) DM type 2 (diabetes mellitus, type 2) (Chronic) Seizure disorder (Chronic) Bile leak, postoperative (Chronic) PAD (peripheral artery disease) (Chronic) History of stroke (Chronic) 5 years ago, residual CANNOT USE LEFT ARM - IN SLING; LEFT LEG WEAK - USES [employer] HTN (hypertension) (Chronic) Surgical History H/O umbilical hernia repair (Chronic) History of cholecystectomy (Chronic) History of appendectomy (Resolved) Family History Mother Diabetes Father Stroke Social History Preferred Language: [place] Communication Ability: Effective Beliefs That Will Affect Care: None marital status: Current Living Situation: Rehab Current Living Situation Comment: [facility] Other Information That Helps Us Care for You: No Feels Safe at Home: Yes Safety Concerns: Feels Safe At This Time Smoking Status: Former smoker Second Hand Exposure: No Hx Alcohol Use: No Hx Substance Use: No Review of Systems Constitutional: no fever and no chills Eyes: no worsening vision Ear, Nose, Mouth, Throat: no hearing loss Respiratory: no dyspnea Cardiovascular: no chest pain Gastrointestinal: + abdominal pain Genitourinary: no dysuria, no difficulty urinating, no hematuria, no flank pain and no genital pain Neurologic: no confusion Psychiatric: no problem reported Endocrine: + fatigue Physical Exam Constitutional: no acute distress ENMT: Ears: no hearing impairment Neck: normal visual inspection Respiratory: normal respiratory effort; does not use accessory muscles Cardiovascular: Vessels: no JVD Gastrointestinal (Abdomen): Percussion/Palpation: abdomen soft; no guarding Neurologic: not confused Psychiatric: A+Ox3, euthymic affect Genitourinary: bladder normal to palpation Results & Data Vital Signs (Past 12 Hours) Vital Signs Temp Pulse Pulse Resp BP Pulse Ox 09/19/18 08:00 94 H 09/19/18 06:51 36.6 C 92 H 20 165/78 H 92 09/19/18 04:33 37 C 94 H 20 156/68 H 93 09/18/18 23:43 90 09/18/18 23:00 36.8 C 91 H 20 160/82 H 91
--- NOTE | 2018-09-19 14:57 | Hospitalist Progress Note ---
Date of Service September 19, 2018 Assessment & Plan (1) Sepsis: (2) Cellulitis of drainage site, post-operative: Patient was sent from [facility] for evaluation of fever and pain around CARA site S/P cholecystectomy on 08/20 complicated by bile leak with ERCP and biliary stent placement on 08/21 CT ABD/pelvis showing increase in infiltration along the operative bed drain that involves the abdominal wall musculature, this raises the possibility of an infectious process with cellulitis and infected drain, no abscess. LFTs WNL CARA drain removed by general surgery in the ED Wound culture: Pansensitive Staph aureus Erythema around CARA drain insertion site improved Continue IV zosyn>>>Transitioned to Keflex IV Vanco discontinued Blood culture: No growth to date Appreciate surgery Input No drainage from the CARA insertion site since hospitalization Clinically improved Tolerating Advanced diet Hypokalemia Hypophosphatemia Likely due to poor oral intake and diarrhea Replace electrolytes as needed Nutrition supplements (3) Hypoxia: In the ED, noted to be 88% on room air CT chest showing extensive atelectasis,likely the cause of patient's hypoxia Continue Incentive spirometer Currently saturating on room air (4) Lesion of bladder: Incidental finding CT ABD/pelvis showing 1.4 cm nodular enhancing focus along the left posterior aspect of the bladder which favors a urothelial lesion Bladder USD:1.9 cm echogenic lesion along the left posterior aspect of the bladder which corresponds to the finding on CT of September 16, 2018. This suggests a urothelial lesion. Urology consultation for consideration for cystoscopy is recommended. No hydronephrosis. UA: No Microscopic hematuria Appreciate Urology Input Needs FU with Urology upon discharge for Cystoscopy: FU with on October 01, 2018 at 9:30AM (5) Bile leak, postoperative: Status post ERCP and stent placement on 08/21 Stent will be removed in 8 weeks from the date of insertion LFTs have been normal and doubt any blockage (6) History of cholecystectomy: S/P cholecystectomy on 08/20 which was complicated by bile leak and subsequent ERCP with biliary stent placement Per GI, patient is to have stent in place until 09/30 Discussed with GI by ERCP and stent removal as planned as outpatient (7) History of pulmonary embolism: On Xarelto (8) DM type 2 (diabetes mellitus, type 2): Hgb A1c 6.3, 07/2018 Hold oral agents Continue NovoLog per protocol while hospitalized (9) Seizure disorder: Continue Keppra (10) History of stroke: Aspirin discontinued when patient was placed on Xarelto for PE Continue Zetia (11) HTN (hypertension): Stable continue lisinopril (12) DVT prophylaxis: On Xarelto Family member want the patient to be at home Social service consulted PT/OT Subjective Patient is seen and examined at bedside Feels much better today Had 1 loose BM today Tolerating diet Left hand swelling improved lower abdominal pain improved Denies any chest pain, shortness of breath, dizziness Review of Systems Review of Systems: All systems reviewed & are unremarkable except as noted in HPI & below Physical Exam Physical Exam: Physical Exam: Vitals signs as noted above General Appearance:Moderately built and nourished, no apparent distress Head: normocephalic, Atraumatic Eyes: normal inspection, EOMI Neck: supple, Trachea midline Respiratory/Chest: Decreased breath sounds, CTA Cardiovascular: S1, S2, No murmur Abdomen/GI:Soft, Lower abd mild tender, No guarding/rigidity, Bowel sounds present Extremities/Musculoskelatal:normal inspection, no edema Neurologic/Psych:AAOX3, Left sided weakness from Prior CVA Skin: normal color, warm Results & Data Vital Signs (Past 12 Hours) Vital Signs Temp Pulse Pulse Resp BP Pulse Ox 09/19/18 11:35 36.8 C 88 16 168/81 H 93 09/19/18 08:00 94 H 09/19/18 06:51 36.6 C 92 H 20 165/78 H 92 09/19/18 04:33 37 C 94 H 20 156/68 H 93 Laboratory Results Short CBC 09/19/18 Range/Units 05:21 WBC 9.19 (4.8-10.8) K/uL Hgb 11.5 L (14.0-18.0) g/dL Hct 34.2 L (42-52) % Plt Count 385 (130-400) K/uL BMP 09/19/18 05:21 Sodium 139 Potassium 3.0 L Chloride 108 H Carbon Dioxide 26 BUN 4 L D Creatinine 0.49 L Glucose 112 H Calcium 7.8 L
[2018-09-19] MEDS ORDERED: PANTOprazole 40 MG TAB PO SCH (17:00)
[2018-09-19] MEDS: EZETIMIBE 10 MG TABLET PO SCH (20:35)
[2018-09-19] MEDS: CEROVITE ADV FORMULA TAB PO SCH (20:35)
[2018-09-20] MEDS: PANTOprazole 40 MG TAB PO SCH (05:30)
[2018-09-20 06:25] LABS: BUN Creatinine Ratio 3.8 (10-20); Calcium 8.4 mg/dl (8.5-10.1); Creatinine Clr Calc Pharmacy 133.5 ml/min; Est GFR (African American) 125.5; Est GFR (Non-African American) 108.3
[2018-09-20 06:27] LABS: Phosphorus 2.5 mg/dl (2.5-4.9)
[2018-09-20] MEDS ORDERED: POTASSIUM CHLORIDE 10 MEQ TABCR PO STA (07:30)
[2018-09-20] MEDS ORDERED: AMLODIPINE BESYLATE 5 MG TAB PO SCH (09:00)
[2018-09-20] MEDS: POTASSIUM CHLORIDE / WTR 10 MEQ/100 ML PLCT IV SCH ×3 (09:13→12:31)
[2018-09-20] MEDS: LISINOPRIL 20 MG TAB PO SCH (09:20)
[2018-09-20] MEDS: cephALEXin 500 MG CAP PO SCH ×2 (09:20→12:32)
[2018-09-20] MEDS: RIVAROXABAN 15 MG TAB PO SCH (09:21)
[2018-09-20] MEDS: levETIRAcetam ORAL SOLN 100MG/ML PO SCH (09:21)
[2018-09-20] MEDS: INSULIN ASPART 100 UNITS/ML 3 ML PEN SC SCH ×2 (09:25→12:33)
--- NOTE | 2018-09-20 10:56 | Hospitalist Progress Note ---
Date of Service September 20, 2018 Assessment & Plan (1) Sepsis: (2) Cellulitis of drainage site, post-operative: Patient was sent from [facility] for evaluation of fever and pain around CARA site S/P cholecystectomy on 08/20 complicated by bile leak with ERCP and biliary stent placement on 08/21 CT ABD/pelvis showing increase in infiltration along the operative bed drain that involves the abdominal wall musculature, this raises the possibility of an infectious process with cellulitis and infected drain, no abscess. LFTs WNL CARA drain removed by general surgery in the ED Wound culture: Pansensitive Staph aureus Erythema around CARA drain insertion site improved Continue IV zosyn>>>Transitioned to Keflex IV Vanco discontinued Blood culture: No growth to date Appreciate surgery Input No drainage from the CARA insertion site since hospitalization Clinically improved Tolerated diet Recommended follow up with Surgery upon discharge Hypokalemia Hypophosphatemia Likely due to poor oral intake and diarrhea Replace electrolytes as needed Nutrition supplements (3) Hypoxia: In the ED, noted to be 88% on room air CT chest showing extensive atelectasis,likely the cause of patient's hypoxia Continue Incentive spirometer Currently saturating on room air (4) Lesion of bladder: Incidental finding CT ABD/pelvis showing 1.4 cm nodular enhancing focus along the left posterior aspect of the bladder which favors a urothelial lesion Bladder USD:1.9 cm echogenic lesion along the left posterior aspect of the bladder which corresponds to the finding on CT of September 16, 2018. This suggests a urothelial lesion. Urology consultation for consideration for cystoscopy is recommended. No hydronephrosis. UA: No Microscopic hematuria Appreciate Urology Input Needs FU with Urology upon discharge for Cystoscopy: FU with on October 01, 2018 at 9:30AM (5) Bile leak, postoperative: Status post ERCP and stent placement on 08/21 Stent will be removed in 8 weeks from the date of insertion LFTs have been normal and doubt any blockage (6) History of cholecystectomy: S/P cholecystectomy on 08/20 which was complicated by bile leak and subsequent ERCP with biliary stent placement Per GI, patient is to have stent in place until 09/30 Discussed with GI by ERCP and stent removal as planned as outpatient (7) History of pulmonary embolism: On Xarelto (8) DM type 2 (diabetes mellitus, type 2): Hgb A1c 6.3, 07/2018 Hold oral agents Continue NovoLog per protocol while hospitalized (9) Seizure disorder: Continue Keppra (10) History of stroke: Aspirin discontinued when patient was placed on Xarelto for PE Continue Zetia (11) HTN (hypertension): Stable continue lisinopril Added amlodipine for better BP control (12) DVT prophylaxis: On Xarelto Disposition: Patient and Family prefers to be discharged home with home health Refuses rehab placement Social service consulted Subjective Patient is seen and examined at bedside Doing well today Abdominal pain resolved Tolerated regular diet Left hand swelling resolved Denies any chest pain, shortness of breath, dizziness Family at bedside No new complaints Review of Systems Review of Systems: All systems reviewed & are unremarkable except as noted in HPI & below Physical Exam Physical Exam: Physical Exam: Vitals signs as noted above General Appearance:Moderately built and nourished, no apparent distress Head: normocephalic, Atraumatic Eyes: normal inspection, EOMI Neck: supple, Trachea midline Respiratory/Chest: Decreased breath sounds, CTA Cardiovascular: S1, S2, No murmur Abdomen/GI:Soft, non tender, No guarding/rigidity, Bowel sounds present Extremities/Musculoskelatal:normal inspection, no edema Neurologic/Psych:AAOX3, Left sided weakness from Prior CVA Skin: normal color, warm Results & Data Vital Signs (Past 12 Hours) Vital Signs Temp Pulse Pulse Resp BP Pulse Ox 09/20/18 07:25 36.6 C 87 18 172/90 H 92 09/20/18 06:58 89 09/20/18 04:12 37 C 94 H 18 167/82 H 91 09/19/18 23:05 36.8 C 95 H 20 167/81 H 91 Laboratory Results [facility] 09/19/18 09/20/18 15:46 05:31 Sodium 143 Potassium 3.2 L 3.0 L Chloride 106 Carbon Dioxide 30 BUN 2 L Creatinine 0.50 L Glucose 127 H Calcium 8.4 L
--- NOTE | 2018-09-20 11:19 | Discharge Summary ---
Date of Service September 20, 2018 Admission HPI Per Admitting Provider 73-year-old male who was sent to the ED from [facility] for evaluation of fever. On 08/20, patient underwent cholecystectomy for gangrenous cholecystitis which was complicated by bile leak. Patient subsequently underwent ERCP with biliary stent placement. Patient was readmitted to [facility] 09/06 for acute pulmonary embolism. He was discharged on Xarelto. Patient reports he been doing well until yesterday. He reports developing chills and fever. He reports increasing pain around his abdominal CARA drain site. He reports there has been minimal drainage from the CARA drain itself. This morning, patient reports he had nausea and vomiting after breakfast. Review of records from [facility] report the patient was febrile up to 101 yesterday. At [facility], empiric Cipro and Flagyl was ordered and CT ABD/pelvis. This morning, he spiked a temp of 102.6 with tachycardia and was sent to the ED for further evaluation. Patient denies hematemesis or coffee-ground emesis. No diarrhea. He denies chest pain, shortness of breath, cough, sputum production. No lightheadedness, dizziness, diaphoresis, syncopal events. He denies any urinary symptoms. In the ED, WBC 21K and tachycardic 110s. No fever, BP stable, normal lactic acid. Mild hypokalemia and hypomagnesemia is noted. CT ABD/pelvis shows increase in infiltration along the operative bed drain that involves the abdominal wall musculature, this raises the possibility of an infectious process with cellulitis and infected drain, no abscess. Patient received IVF, IV Vanco, IV Zosyn, IV morphine, IV magnesium, IV Tylenol. Admission Exam Per Admitting Provider Constitutional: WD/WN, vitals as above Eyes: PERRL, conjunctivae normal, anicteric sclerae ENMT: external ear and nose normal, oropharynx normal Respiratory: normal respiratory effort, lungs clear to auscultation Cardiovascular: Rate/Rhythm: regular rate and regular rhythm Vessels: normal peripheral pulses Extremities: no edema Gastrointestinal (Abdomen): Inspection/Auscultation: normal bowel sounds and + abdominal surgical drain present (Right abdomen, draining a scant amount of serous fluid, mild surrounding erythema noted); abdomen not distended Percussion/Palpation: + abdomen tender (Around CARA drain site) and abdomen soft; no hepatosplenomegaly Musculoskeletal: Extremities: + abnormal strength (Left hemiparesis), no cyanosis and no clubbing Skin: no rashes Clammy skin, warm to touch Neurologic: PERRL, EOMI, accommodation nl, no face palsy, no dysarthria Psychiatric: A+Ox3, euthymic affect Principal Diagnosis Discharge Information Discharge Diagnosis Sepsis Hypokalemia Discharge Goals Decrease discomfort,Improve function,Improve disease control Discharge Activity Limitations Resume your previous activity Discharge Data Allergies Allergy/AdvReac Type Severity Reaction Status Date / Time lactose AdvReac Intermediate GI SYMPTOMS Verified 09/16/18 12:46 Uyniinv-Avf-Vfm Reductase AdvReac Unknown MUSCLE Verified 09/16/18 12:46 Inhibitor CRAMPS Consultations 09/16/18 14:51 ED Decision to Admit Stat 09/16/18 19:57 Consult Case Management - Discharge Planning Routine Consult General Surgery Routine 09/18/18 14:50 Consult Urology Routine Procedures Performed CTA: 1. No evidence of pulmonary embolus. 2. Extensive bibasilar atelectasis. 3. Increased lower lobe bronchial wall thickening. This could suggest bronchitis, chronic aspiration, or congestive change. 4. 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 5. Postsurgical changes of cholecystectomy. Gas and infiltration in the gallbladder fossa likely expected postsurgical change. CT ABD: 1. Trace fluid and gas within the cholecystectomy bed which has decreased since CT of August 28, 2018. Increase in infiltration along the operative bed drain that involves the abdominal wall musculature. This raises the possibility of an infectious process with cellulitis and infected drain. No abscess. Trace abdominal and pelvic ascites. 2. Interval improvement in peripancreatic infiltration suggestive of improving pancreatitis. Biliary drain in place. No biliary ductal dilatation. 3. 1.4 cm nodular enhancing focus along the left posterior aspect of the bladder which favors a urothelial lesion. Nonemergent urologic consultation is recommended. Bladder USD: 1. 1.9 cm echogenic lesion along the left posterior aspect of the bladder which corresponds to the finding on CT of September 16, 2018. This suggests a urothelial lesion. Urology consultation for consideration for cystoscopy is recommended. 2. No hydronephrosis. Ordered Studies 09/16/18 12:57 CT abd pelvis IV con only Stat CT angio chest PE protocol Stat 09/18/18 08:43 US retro bladder ltd Routine Hospital Course (1) Sepsis: (2) Cellulitis of drainage site, post-operative: Patient was sent from [facility] for evaluation of fever and pain around CARA site S/P cholecystectomy on 08/20 complicated by bile leak with ERCP and biliary stent placement on 08/21 CT ABD/pelvis showing increase in infiltration along the operative bed drain that involves the abdominal wall musculature, this raises the possibility of an infectious process with cellulitis and infected drain, no abscess. LFTs WNL CARA drain removed by general surgery in the ED Wound culture: Pansensitive Staph aureus Erythema around CARA drain insertion site improved Continue IV zosyn>>>Transitioned to Keflex IV Vanco discontinued Blood culture: No growth to date Appreciate surgery Input No drainage from the CARA insertion site since hospitalization Clinically improved Tolerated diet Recommended follow up with Surgery upon discharge Hypokalemia Hypophosphatemia Likely due to poor oral intake and diarrhea Replace electrolytes as needed Nutrition supplements (3) Hypoxia: In the ED, noted to be 88% on room air CT chest showing extensive atelectasis,likely the cause of patient's hypoxia Continue Incentive spirometer Currently saturating on room air (4) Lesion of bladder: Incidental finding CT ABD/pelvis showing 1.4 cm nodular enhancing focus along the left posterior aspect of the bladder which favors a urothelial lesion Bladder USD:1.9 cm echogenic lesion along the left posterior aspect of the bladder which corresponds to the finding on CT of September 16, 2018. This suggests a urothelial lesion. Urology consultation for consideration for cystoscopy is recommended. No hydronephrosis. UA: No Microscopic hematuria Appreciate Urology Input Needs FU with Urology upon discharge for Cystoscopy: FU with on October 01, 2018 at 9:30AM (5) Bile leak, postoperative: Status post ERCP and stent placement on 08/21 Stent will be removed in 8 weeks from the date of insertion LFTs have been normal and doubt any blockage (6) History of cholecystectomy: S/P cholecystectomy on 08/20 which was complicated by bile leak and subsequent ERCP with biliary stent placement Per GI, patient is to have stent in place until 09/30 Discussed with GI by ERCP and stent removal as planned as outpatient (7) History of pulmonary embolism: On Xarelto (8) DM type 2 (diabetes mellitus, type 2): Hgb A1c 6.3, 07/2018 Hold oral agents Continue NovoLog per protocol while hospitalized (9) Seizure disorder: Continue Keppra (10) History of stroke: Aspirin discontinued when patient was placed on Xarelto for PE Continue Zetia (11) HTN (hypertension): Stable continue lisinopril Added amlodipine for better BP control (12) DVT prophylaxis: On Xarelto Disposition: Patient and Family prefers to be discharged home with home health Refuses rehab placement Social service consulted Total Time Total Time Spent Total Time Spent (In Minutes): 41 minutes Discharge Plan Discharge Items Patient Disposition: Home - Home Health Services Reason For Visit: SEPSIS Discharge Diagnosis: Sepsis Hypokalemia Discharge Goals: Decrease discomfort, Improve disease control and Improve function Activity: Resume your previous activity Exercise/Sports: Gradually increase as tolerated Non-emergency contact: Primary Care Provider, Surgeon, Bakery Sales Clerk and Urologist Call non-emergency contact if: you have any medication questions, your symptoms worsen, your pain is not controlled, your pain is worsening, your pain is unusual for you, your pain is concerning for you, you have a fever, your wound has increased redness, your wound has increased drainage and your wound pain has increased Follow-up/Referrals: Raul Benitez MD [Primary Care Provider] - Diet: Carb Consistent or DM2 Other Ambulatory Orders: Basic Metabolic Panel (Routine) Timeframe: 3 Days Location: Determined by Patient Ordered By: Prakash Douglas Provider Instructions: Follow up with your PCP on September 23, 2018 at 1:20 Pm Follow up with your Urologist on 10/01/18 @ 9:30am for cystoscopy with Dr. Harry [address] [place] [address] office, Follow up with your Bakery Sales Clerk for biliary stent removal as scheduled Follow up with your Surgeon in 2 weeks Take Xarelto 15mg twice a day for until 09/29/18 and start taking Xarelto 20mg daily starting September 30, 2018 Complete the antibiotic course as prescribed Change dressing on drain site daily May shower, allow soap and water to run over site and pat dry Call surgical office at [phone] if you have any questions Seek immediate medical attention if your symptoms reoccur or worsen Prescriptions: New amlodipine [Norvasc] 5 mg Tablet 5 mg PO QAM 30 Days Qty: 30 RF: 0 famotidine 20 mg Tablet 20 mg PO BID PRN (Reason: heartburn) 30 Days Qty: 60 RF: 0 cephalexin 500 mg Capsule 500 mg PO TID 6 Days Qty: 18 RF: 0 potassium chloride 20 mEq/15 mL liquid 20 meq PO DAILY Qty: 450 RF: 0 Xarelto 20 mg Tablet 20 mg PO QDD 30 Days Qty: 30 RF: 0 Continued metformin 500 mg Tablet 500 mg PO AMPM RF: 0 levetiracetam 750 mg Tablet 1,500 mg PO AMHS RF: 0 ezetimibe [Zetia] 10 mg Tablet 10 mg PO QPM RF: 0 Men's 50 Plus Multivitamin 400-20-370 mcg Tablet 1 tab PO PM RF: 0 omeprazole 20 mg Capsule,Delayed Release(Dr/Ec) 20 mg PO DAILYBB RF: 0 Xarelto 15 mg tablet 15 mg PO AMHS 10 Days Qty: 20 RF: 0 lisinopril 20 mg tablet 20 mg PO AMHS RF: 0 Discontinued metronidazole 500 mg Tablet 500 mg PO TID RF: 0 ciprofloxacin HCl 500 mg Tablet 500 mg PO BID RF: 0 Stand-Alone Forms: Call Back Authorization, [facility] Discharge Orders: Discharge Order (Routine); Ordered 09/20/18 Ordered By: Prakash Taylor Admission Data Admit Date/Time: 09/16/18 17:29 Attending Provider: Prakash Taylor Admit Provider: Jeannine Gandhi Primary Care Provider: Raul Benitez Other Providers: Prakash Taylor ; Jayro Osborn ; Jeannine Gandhi ; Sammy Rosario Service: Telemetry Medical Other Interventions: Discharge Summary Assessment (RN) Last Done: 09/20/18 11:26 Pending Studies at Discharge: No DC Date/Time DO NOT enter until pt leaves facility: 09/20/18 16:04
[2018-09-20] MEDS: POTASSIUM CHLORIDE 20 MEQ/15 ML UDC PO STA ×2 (11:42→12:48)
--- NOTE | 2018-09-20 11:52 | Surgery Progress Note ---
Date of Service September 20, 2018 Assessment & Plan (1) Abdominal wall cellulitis: Leukocytosis resolved afebrile no abdominal pain cultures with + staph aureus, transitioned to oral Keflex tolerating well No surgical intervention required, continue course of abx daily dressing changes of drain site may shower, allow water to run over drain site and cover with dressing should follow-up in surgical office in 1-2 weeks for post cholecystectomy visit Dr. Osborn has seen and examined pt, agrees with above Subjective feeling great today, "I am going home today" no abdominal pain, no pain at drain site no nausea or vomiting tolerating oral antibiotics Physical Exam Gastrointestinal (Abdomen): Inspection/Auscultation: abdomen normal to inspection; abdomen not distended Percussion/Palpation: abdomen soft; abdomen nontender, no guarding and abdomen not rigid Skin: no rashes, warm and dry prior drain site with some fibrinous tissue, mild erythema continues to improve Psychiatric: A+Ox3, euthymic affect Results & Data Vital Signs (Past 12 Hours) Vital Signs Temp Pulse Pulse Pulse Resp BP BP 09/20/18 11:31 37.1 C 105 H 20 163/81 H 09/20/18 11:26 36.6 C 80 87 18 120/57 L 172/90 H 09/20/18 11:24 36.6 C 80 87 18 120/57 L 172/90 H 09/20/18 07:25 36.6 C 87 18 172/90 H 09/20/18 06:58 89 09/20/18 04:12 37 C 94 H 18 167/82 H Pulse Ox 09/20/18 11:31 90 09/20/18 11:26 92 09/20/18 11:24 92 09/20/18 07:25 92 09/20/18 06:58 09/20/18 04:12 91 Laboratory Results 09/20/18 09/20/18 09/19/18 Range/Units 07:47 05:31 20:26 Sodium 143 (136-145) mmol/L Potassium 3.0 L (3.5-5.1) mmol/L Chloride 106 (98-107) mmol/L Carbon Dioxide 30 (21-32) mmol/L Anion Gap 6.0 (3-11) BUN 2 L (7-18) mg/dl Creatinine 0.50 L (0.6-1.4) mg/dl Est Cr Clr Drug Dosing 133.5 ml/min Est GFR ( Amer) 125.5 Est GFR (Non-Af Amer) 108.3 BUN/Creatinine Ratio 3.8 L (10-20) Glucose 127 H (70-99) mg/dl POC Glucose 126 H 146 H (70-99) Calcium 8.4 L (8.5-10.1) mg/dl Phosphorus 2.5 (2.5-4.9) mg/dl 09/19/18 09/19/18 09/19/18 Range/Units 16:26 15:46 11:46 Sodium (136-145) mmol/L Potassium 3.2 L (3.5-5.1) mmol/L Chloride (98-107) mmol/L Carbon Dioxide (21-32) mmol/L Anion Gap (3-11) BUN (7-18) mg/dl Creatinine (0.6-1.4) mg/dl Est Cr Clr Drug Dosing ml/min Est GFR ( Amer) Est GFR (Non-Af Amer) BUN/Creatinine Ratio (10-20) Glucose (70-99) mg/dl POC Glucose 145 H 120 H (70-99) Calcium (8.5-10.1) mg/dl Phosphorus (2.5-4.9) mg/dl
[2018-09-20] MEDS: SODIUM CHLORIDE 0.9% 1000ML 1,000 ML IV SCH (14:07)
[2018-09-30] MEDS ORDERED: RIVAROXABAN 20 MG TAB PO SCH (16:30)
== END 2018-09-20 16:04 | disposition home health service (06) | DRG 862 ==
LOC: ED 11:54 → SUATTDRO 17:29 → 2N 17:29
DX: I69.354 Hemiplegia and hemiparesis following cerebral infarction affecting left non-dominant side; I10 Essential (primary) hypertension; E83.42 Hypomagnesemia; L03.311 Cellulitis of abdominal wall; I26.99 Other pulmonary embolism without acute cor pulmonale; E87.6 Hypokalemia; Z88.3 Allergy status to other anti-infective agents; T85.79XA Infection and inflammatory reaction due to other internal prosthetic devices, implants and grafts, initial encounter; E11.9 Type 2 diabetes mellitus without complications; Z87.891 Personal history of nicotine dependence; N32.9 Bladder disorder, unspecified; B95.8 Unspecified staphylococcus as the cause of diseases classified elsewhere; Z79.01 Long term (current) use of anticoagulants; R09.02 Hypoxemia; G40.909 Epilepsy, unspecified, not intractable, without status epilepticus; Y83.8 Other surgical procedures as the cause of abnormal reaction of the patient, or of later complication, without mention of misadventure at the time of the procedure; K91.89 Other postprocedural complications and disorders of digestive system; T81.42XA Infection following a procedure, deep incisional surgical site, initial encounter; Z98.890 Other specified postprocedural states; Y92.009 Unspecified place in unspecified non-institutional (private) residence as the place of occurrence of the external cause; J98.11 Atelectasis; A41.9 Sepsis, unspecified organism

== ENCOUNTER 2018-10-04 08:23 | Observation (INO) ==
--- NOTE | 2018-10-01 13:57 | Anesthesiology Consultation ---
Date of Service October 01, 2018 Assessment & Plan (1) Encounter for pre-operative examination: S/P ERCP 09/30/18 = MAC 3, ETT 7.5, grad view II. Atraumatic placement x 1. CHECK BSG AM DOS Xarelto management per surgeon and prescriber. Chart Review Chart Review: Acceptable Risk for Surgery and Patient NOT seen in Pre Admission Testing History Surgery Operation Date: 10/04/18 09:30 Proposed Procedures p Transurethral Resection of Bladder Tumor, Left Retrograde Pyelogram and Stent Insertion - Cruz Harry II, DO Height/Weight Height: 5 ft 9 in Weight: 73.9 kg Allergies Allergy/AdvReac Type Severity Reaction Status Date / Time [id number] Reductase AdvReac Severe MUSCLE Verified 10/01/18 13:52 Inhibitor CRAMPS lactose AdvReac Intermediate GI SYMPTOMS Verified 10/01/18 13:52 Medications Home Medications Medication Instructions Recorded Confirmed Last Taken ezetimibe [Zetia] 10 mg PO QPM 12/17/17 09/30/18 09/29/18 17:00 levetiracetam 1,500 mg PO AMHS 12/17/17 09/30/18 09/29/18 20:00 metformin 500 mg PO AMPM 12/17/17 09/30/18 09/29/18 17:00 Men's 50 Plus Multivitamin 1 tab PO PM 08/19/18 09/30/18 09/28/18 lisinopril 20 mg PO AMHS 09/06/18 09/30/18 09/29/18 21:00 omeprazole 20 mg PO DAILYBB 09/16/18 09/30/18 09/28/18 08:00 Xarelto 20 mg PO QDD 30 Days #30 tab 09/20/18 09/30/18 09/28/18 22:00 amlodipine [Norvasc] 5 mg PO QAM 30 Days #30 tab 09/20/18 09/30/18 09/28/18 08:00 famotidine 20 mg PO BID PRN 30 Days #60 tab 09/20/18 09/30/18 09/28/18 potassium chloride 20 meq PO DAILY #450 ml 09/20/18 09/30/18 09/28/18 08:00 Past Medical History Medical History History of pulmonary embolism (Chronic) [facility] 09/06. Discharged on Xarelto. Left hemiparesis (Chronic) DM type 2 (diabetes mellitus, type 2) (Chronic) A1c 6.3 07/2018 Seizure disorder (Chronic) 2/2 CVA. On Keppra. Bile leak, postoperative (Chronic) After lap carlotta 08/20, had subsequent ERCP with stent placement, stent removed 09/30. PAD (peripheral artery disease) (Chronic) History of stroke (Chronic) 5 years ago, residual CANNOT USE LEFT ARM - IN SLING; LEFT LEG WEAK - USES YEN WALKER HTN (hypertension) (Chronic) Bladder tumor (Acute) Noted incidentally on CT 09/16/18. Patient to ED on 09/29 with hematuria. Past Family History Family History Mother Diabetes Father Stroke Past Surgical History Surgical History History of right common carotid artery stent placement (Chronic) H/O umbilical hernia repair (Chronic) History of cholecystectomy (Chronic) Due to gangrenous gallbladder. Complicated by bile leak, had subsequent ERCP with stent placement on 08/21. To [facility] ED 09/16 with sepsis. CARA drain removed, IV ABX. History of appendectomy (Resolved) S/P ERCP 09/30 for stent removal, [facility]. Social History Smoking Status: Former smoker Hx Alcohol Use: No Hx Substance Use: No Testing Laboratory Results 09/29/18 WBC: 9.75 H/H: 13.2/40.2 PLATELETS: 441 SODIUM: 141 POTASSIUM: 4.0 CHLORIDE: 106 CO2: 30 BUN: 12 CREATININE: 0.66 GLUCOSE: 112 PT: 12.2 PTT: 31.5 INR: 1.2 Electrocardiogram Date: 09/16/18 Findings: + ST @ (107) Otherwise normal EKG. Chest X-Ray Date: 09/16/18 FINDINGS: Cardiomediastinal and hilar silhouettes are within normal limits. No pneumoth orax, pleural effusion, focal airspace consolidation or overt pulmonary edema. Mild right hemidiaphragmatic elevation is unchanged. Degenerative changes of the shoulders and spine. Surgical clips overlie the abdominal right upper quadrant with possible drainage catheter. Suggested graft of the right carotid distribution. IMPRESSION: No acute process. Echocardiogram Date: 08/20/18 EF: 60-65% The left ventricle is normal in size. Mild concentric LVH. The basal septum is thickened and angulated consistent with sigmoid septum. LV wall motion is normal. Aortic valve sclerosis mild, without significant aortic valvular stenosis. No mitral regurgitation noted. Doppler findings do not suggest p ulmonary hypertension.
[~2018-10-04 08:23] MED LIST changes: -ASPI325T39 PO; +CIPROFLOXACIN 400 MG/200 ML BAG IV SCH; -DOCU250C11 PO; -EZET10TA63 PO; -FENO134C PO; -GABA-113 PO; -GLC/500 PO; -LEVE750T PO; -LIDOCAINE HCL 2% 2 ML VIAL (20MG/ML) ONE; -LISI-461 PO; +LR 15ML/HR IV SCH; -PROPOFOL IV EMULSION 10 MG/ML 20 ML VIAL ONE; -SODIUM CHLORIDE 0.9% 500ML 500 ML IV ONE
[2018-10-04] MEDS ORDERED: DEXAMETHASONE SOD INJ 4 MG/ML VIAL ONE (10:29)
[2018-10-04] MEDS ORDERED: ONDANSETRON INJ 2 MG/ML 2 ML VIAL ONE (10:29)
[2018-10-04] MEDS ORDERED: fentaNYL citrate 100 MCG/2 ML VIAL ONE ×2 (10:29→11:53)
[2018-10-04] MEDS ORDERED: LIDOCAINE HCL 2% 2 ML VIAL/AMP(20MG/ML) INFIL ONE (10:29)
[2018-10-04] MEDS ORDERED: PROPOFOL IV EMULSION 10 MG/ML 20 ML VIAL IV ONE (10:29)
[2018-10-04] MEDS ORDERED: ATROPINE SULFATE 0.1 MG/ML 10ML SYR IV PRN (10:45)
[2018-10-04] MEDS ORDERED: fentaNYL citrate 100 MCG/2 ML VIAL IV PRN (10:45)
[2018-10-04] MEDS ORDERED: ePHEDrine sulfate 50 MG/ML AMP IV PRN (10:45)
[2018-10-04] MEDS ORDERED: ONDANSETRON INJ 2 MG/ML 2 ML VIAL IV PRN ×2 (10:45→12:38)
--- NOTE | 2018-10-04 11:05 | History & Physical Bridge Note ---
Date of Service October 04, 2018 History & Physical Bridge Note I have examined the patient, reviewed the History & Physical and in the interval since the performance of the History & Physical I have noted the following changes of clinical significance: no changes noted
[2018-10-04] MEDS ORDERED: IOTHALAMATE MEGLUMINE II 17.2% 250 ML VIAL ONE (11:32)
[2018-10-04] MEDS ORDERED: BELLADONNA/OPIUM SUPP 60 MG SUPP PR ONE ×2 (11:43→12:38)
[2018-10-04] MEDS ORDERED: BELLADONNA/OPIUM SUPP 60 MG SUPP PR PRN (12:06)
--- NOTE | 2018-10-04 12:13 | Operative Report ---
Post Operative Report Pre & Post Diagnosis Operation Date: 10/04/18 10:45 Pre-Op Diagnosis: Bladder Tumor Post-Op Diagnosis: Bladder Tumor Procedure Operation Date: 10/04/18 10:45 Actual Procedures p Transurethral Resection of Bladder Tumor, Left Retrograde Pyelogram and Stent Insertion(Left) - Cruz Harry II, DO Surgeon Cruz Harry, II, DO Clock And Watch Hands Painter None Estimated Blood Loss 2 Findings Consistent with Post-Op Diagnosis Tumor approx 6.3 cm in area at left trigone including the left UO. Specimens 1. Tumor Left Trigone 2. Tumor Left Trigone Base Drains 6 Fr Multilength on left 20 Fr Mcguire Anesthesia Type MAC Complications none Disposition Disposition: Recovery Room Indications Patient with recurrent hematuria found to have bladder mass. Risks and benefits discussed at length. Description of Procedure Patient was consented and brought back to the operating room. Patient was placed under anesthesia in the supine position and moved to the dorsal lithotomy position. Patient was prepped and draped in the regular sterile fashion. A time out was completed. A 30degree Cystoscope was placed into the bladder and the entire bladder was examined. The large tumor was once again found at the left trigone. The left UO was unable to be found in the tumor. A resection scope was selected. The fine bipolar loop was used to removed and debulk the tumor. This exposed the Left UO. At this point, a 5 fr Catheter was placed to allow resection of the tumor. The tumor was removed and a deep resection was taken and sent seperately. This was then inspected. The base of the resection and edges were fulgurated with cautery. All bleeding was controlled. The bladder neck was found to have multiple varocosities which were bleeding from the scope movement. These vessels were fulgurated to control bleeding. Through the 5 fr catheter, a retrograde pyelogram was completed]. A wire was then placed. With the wire in place, a 6 Fr Double J stent was placed. It was confirmed with fluoroscopy. With the stent in place, the bladder was emptied. It was inspected a final time. A small amount of bleeding was noted in the prostate and at the meatus. Because of these areas, a 20 Fr catheter was placed after the scope was removed. The patient was cleaned, aroused from anesthesia, and transferred to the pacu in stable condition having tolerated the procedure well with no complications. I was present and participated in all aspects of the procedure. A B&O suppository was placed. The patient will be monitored in the PACU until transferred. I attest to the content of the Intraoperative Record and any orders documented therein. Any exceptions are noted below.
--- NOTE | 2018-10-04 12:14 | Fluoroscopy Report ---
FL retrograde includes kub CLINICAL HISTORY: LEFT RETROGRADE AND STENT INSERTION COMPARISON STUDY: None FLUOROSCOPY TIME: 52 seconds. NUMBER OF FLUOROSCOPIC IMAGES: 3 FINDINGS: 3 fluoroscopic spot images are provided for interpretation. Image #1 demonstrates a cathete r at the level of the left UP junction. There is no hydronephrosis. No collecting system filling defe cts are visualized. Images #2 and 3 demonstrate a double pigtail left sided nephroureteral stent. IMPRESSION: Intraprocedural fluoroscopic spot images during placement of a left-sided nephroureteral stent Electronically signed by: Virgil Rahman M.D. 10/04/2018 12:12 PM
[2018-10-04] MEDS ORDERED: OXYCODONE/ACETAMINOPHEN 5mg/325mg TAB PO PRN (12:38)
[2018-10-04] MEDS ORDERED: FAMOTIDINE 20 MG TAB PO PRN (12:44)
[2018-10-04] MEDS ORDERED: METFORMIN HCL 500 MG TAB PO SCH (12:45)
[2018-10-04] MEDS ORDERED: OXYCODONE/ACETAMINOPHEN 5mg/325mg TAB ONE (13:56)
--- NOTE | 2018-10-04 14:12 | Anesthesiology Progress Note ---
Date of Service October 04, 2018 Anesthesia Post Procedure Vital Signs Vital Signs: Temp Pulse Resp BP Pulse Ox 10/04/18 13:09 92 H 16 157/87 H 95 10/04/18 12:15 37 C 85 18 162/91 H 94 10/04/18 08:51 36.6 C 86 18 130/75 94 Pain Intensity Lower Penis: Pain Intensity: 6 Transfer of Care Handoff Completed per policy Notes Mental Status: alert / awake / arousable and participated in evaluation Patient Amnestic to Procedure: Yes Nausea / Vomiting: adequately controlled Pain: adequately controlled Airway Patency, RR, SpO2: stable & adequate BP & HR: stable & adequate Hydration State: stable & adequate Anesthetic Complications: no major complications apparent and Pt Satisfied with anesthetic care
[2018-10-04] MEDS: SODIUM CHLORIDE 0.9% 1000ML 1,000 ML IV SCH (14:58)
[2018-10-04 15:06] LABS: Hematocrit (blood only) 39.9 % (42-52); Hemoglobin 13.6 g/dL (14.0-18.0); Mean Corpuscular Volume 90.5 fL (80-100); Mean Platelet Volume 9.5 fL (7.4-10.4); Platelet Count 368 K/uL (130-400); RDW Coefficient of Variation 14.2 % (11.5-14.5); Red Blood Count 4.41 M/uL (4.7-6.1); White Blood Count 9.22 K/uL (4.8-10.8)
[2018-10-04 15:10] LABS: Mean Corpuscular Hgb Conc 34.1 g/dL (32-36)
[2018-10-04 15:22] LABS: Est GFR (African American) 118.9; Est GFR (Non-African American) 102.6
[2018-10-04 15:23] LABS: Alanine Aminotransferase 37 U/L (12-78); Aspartate Aminotransferase 23 U/L (15-37); Bilirubin Direct < 0.1 mg/dl (0-0.2); Creatinine Clr Calc Pharmacy 106.2 ml/min
[2018-10-04 15:25] LABS: Alkaline Phosphatase 79 U/L (45-117); Bilirubin,Total 0.4 mg/dl (0.2-1); Total Protein 6.8 gm/dl (6.4-8.2)
[2018-10-04] MEDS ORDERED: RIVAROXABAN 20 MG TAB PO SCH (16:30)
[2018-10-04] MEDS: INSULIN ASPART 100 UNITS/ML 3 ML PEN SC SCH ×2 (17:31→20:49)
[2018-10-04] MEDS: LISINOPRIL 20 MG TAB PO SCH (21:06)
[2018-10-04] MEDS: DOCUSATE SODIUM 100 MG CAP PO SCH (21:07)
[2018-10-04] MEDS: levETIRAcetam 500 MG TAB PO SCH (21:07)
[2018-10-04] MEDS: EZETIMIBE 10 MG TABLET PO SCH (21:08)
[2018-10-04] MEDS: CIPROFLOXACIN 500 MG TAB PO SCH (21:08)
[2018-10-04] MEDS: ACETAMINOPHEN 325 MG TAB PO PRN ×2 (23:42→23:51)
[2018-10-05] MEDS: SODIUM CHLORIDE 0.9% 1000ML 1,000 ML IV SCH ×2 (04:38→18:15)
[2018-10-05] MEDS: PANTOprazole 40 MG TAB PO SCH (05:33)
[2018-10-05] MEDS: POTASSIUM CHLORIDE 20 MEQ/15 ML UDC PO SCH (07:31)
[2018-10-05] MEDS: AMLODIPINE BESYLATE 5 MG TAB PO SCH (07:31)
[2018-10-05] MEDS: DOCUSATE SODIUM 100 MG CAP PO SCH ×2 (07:32→20:32)
[2018-10-05] MEDS: levETIRAcetam 500 MG TAB PO SCH ×2 (07:32→20:31)
[2018-10-05] MEDS: CIPROFLOXACIN 500 MG TAB PO SCH ×2 (07:32→20:31)
[2018-10-05] MEDS: LISINOPRIL 20 MG TAB PO SCH ×2 (08:21→20:30)
[2018-10-05] MEDS: INSULIN ASPART 100 UNITS/ML 3 ML PEN SC SCH ×4 (08:21→20:53)
--- NOTE | 2018-10-05 10:11 | Anesthesiology Progress Note ---
Date of Service October 05, 2018 Anesthesia Post Procedure Vital Signs Vital Signs: Temp Pulse Pulse Resp BP Pulse Ox 10/05/18 07:53 37.0 C 84 20 135/68 92 10/05/18 03:55 37.0 C 74 18 126/70 94 10/05/18 00:16 36.8 C 83 20 132/73 93 10/04/18 22:20 87 10/04/18 21:05 83 141/75 H 10/04/18 19:00 36.8 C 87 16 135/74 92 10/04/18 15:00 93 H 10/04/18 14:31 36.6 C 95 H 18 151/84 H 92 10/04/18 14:15 140 H 18 167/90 H 93 10/04/18 13:09 92 H 16 157/87 H 95 10/04/18 12:15 37 C 85 18 162/91 H 94 Pain Intensity Lower Penis: Pain Intensity: 5 Transfer of Care Handoff Completed per policy Notes Mental Status: alert / awake / arousable and participated in evaluation Patient Amnestic to Procedure: Yes Nausea / Vomiting: adequately controlled Pain: adequately controlled Airway Patency, RR, SpO2: stable & adequate BP & HR: stable & adequate Hydration State: stable & adequate Anesthetic Complications: no major complications apparent and Pt Satisfied with anesthetic care
--- NOTE | 2018-10-05 10:32 | Urology Progress Note ---
Date of Service October 05, 2018 Assessment & Plan (1) Lesion of bladder: Maintain catheter. Plan to follow up next week for cath removal. Monitor for bleeding. Bleeding tumor has been resected. Tolerating Anticoagulation without severe bleed. Check labs this AM. Likely can go home as long as stable from Pulmonary and anticoagulation. Family very nervous about catheter but has previous managed catheter after Stroke. Looks great this AM. Very light pink and clear. Plan to have D/c Order in Place unless other workup necessary. (2) History of stroke: Hospitalist consult. Present on Admission?: Yes (3) History of pulmonary embolism: Hospitalist consult Present on Admission?: Yes Subjective Patient obs overnight. History of significant PE with previous bleeding. Has been restarted on anticoag after resection of tumor. Some discomfort. NO severe issues. Had uretheral and prostate bleeding after TURBT and catheter was left. Light pink No severe issues. Has urgency and frequency. Discussed that this may continue. Patient tolerating Stent. No severe issues Review of Systems Review of Systems: All systems reviewed & are unremarkable except as noted in HPI & below Physical Exam Constitutional: no acute distress and not ill appearing Eyes: eyes not dysmorphic and no conjunctival abnormality ENMT: Ears: no hearing impairment Nose: no external nose abnormality Neck: normal visual inspection and + facial hair Respiratory: normal respiratory effort Cardiovascular: Rate/Rhythm: regular rate Gastrointestinal (Abdomen): Percussion/Palpation: no guarding and abdomen not rigid Skin: no rashes and no jaundice Trauma: no evidence of skin trauma Neurologic: + does not move all extremities Motor/Sensory: + sensory deficit (Left hemiparesis) Psychiatric: Orientation: alert and oriented x 3 Genitourinary: Catheter in place draining light pink urine without clots. Lymphatic: no lymphadenopathy Results & Data Vital Signs (Past 12 Hours) Vital Signs Temp Pulse Resp BP Pulse Ox 10/05/18 07:53 37.0 C 84 20 135/68 92 10/05/18 03:55 37.0 C 74 18 126/70 94 10/05/18 00:16 36.8 C 83 20 132/73 93
[2018-10-05 10:40] LABS: Hematocrit (blood only) 39.3 % (42-52); Hemoglobin 12.9 g/dL (14.0-18.0); Mean Corpuscular Hgb Conc 32.8 g/dL (32-36); Mean Platelet Volume 9.4 fL (7.4-10.4); Platelet Count 348 K/uL (130-400); RDW Coefficient of Variation 14.1 % (11.5-14.5); RDW Standard Deviation 47.1 fL (36.4-46.3); Red Blood Count 4.32 M/uL (4.7-6.1); White Blood Count 10.23 K/uL (4.8-10.8)
[2018-10-05 10:50] LABS: INR 1.1 (0.9-1.1); Partial Thromboplastin Time 26.8 Seconds (21.0-31.0); Prothrombin Time 10.9 Seconds (9.0-12.0)
[2018-10-05] MEDS: ACETAMINOPHEN 325 MG TAB PO PRN (11:02)
[2018-10-05 11:03] LABS: BUN Creatinine Ratio 11.6 (10-20); Calcium 8.4 mg/dl (8.5-10.1); Creatinine Clr Calc Pharmacy 92.2 ml/min; Est GFR (African American) 111.3; Potassium 3.4 mmol/L (3.5-5.1)
[2018-10-05] MEDS ORDERED: POTASSIUM CHLORIDE 10 MEQ TABCR PO STA (13:13)
--- NOTE | 2018-10-05 13:15 | Consultation ---
Date of Consultation October 05, 2018 Assessment & Plan (1) Lesion of bladder: S/P Transurethral Resection of Bladder Tumor, Left Retrograde Pyelogram and Left Stent Insertion on 10/04/18 Maintain Catheter as per Urology Monitor CBC Ok to resume anticoagulation as per Urology Minimal hematuria noted Needs follow up with Urology upon discharge Pain control Abx as per Urology H/O pulmonary embolism: Was on Xarelto Will start on therapeutic Lovenox If Hb stable with no significant bleeding issues, will resume Xarelto as able Monitor H&H DM type 2 Hgb A1c 6.3, 07/2018 Hold oral agents Continue NovoLog per protocol while hospitalized Seizure disorder: Continue Keppra H/O CVA: Aspirin discontinued when patient was placed on Xarelto for PE Continue Zetia HTN: Stable continue lisinopril, amlodipine DVT Px: Lovenox for now Disposition: PT/OT prior to discharge As per Primary Team . Thank you for the consultation. Dr. Marion Castillo will resume patient's care starting 10/06/18. Please do not hesitate to call with any questions. History of Present Illness Requesting Physician: Dr.Stephen Judah Harry II Reason for Consultation: Medical management Attending Physician: Cruz Harry II, DO History of Present Illness Patient is a 73-year-old male with history of PE on Xarelto, diabetes mellitus, seizure disorder, CVA, hypertension and other problems was admitted under urology service for management of bladder lesion. Patient underwent transurethral resection of bladder tumor, left retrograde pyelogram and left stent insertion by Dr. Harry on 10/04/2018. Patient was requested to be evaluated by hospitalist team for medical management. Patient is doing well postprocedure. He was noted to have a minimal hematuria. He denies any chest pain, shortness of breath, dizziness, nausea, diarrhea. He reports having some discomfort at the catheter site. Patient was to be restarted on anticoagulation today. Patient feels uncomfortable to be discharged without removal of the urinary catheter. His hemoglobin is stable. Allergies Allergy/AdvReac Type Severity Reaction Status Date / Time [id number]-Bjd-Xbt Reductase AdvReac Severe MUSCLE Verified 10/04/18 08:47 Inhibitor CRAMPS lactose AdvReac Intermediate GI SYMPTOMS Verified 10/04/18 08:47 Home Medications Home Medications Medication Instructions Recorded Confirmed Type ezetimibe [Zetia] 10 mg PO QPM 12/17/17 10/04/18 History levetiracetam 1,500 mg PO AMHS 12/17/17 10/04/18 History metformin 500 mg PO AMPM 12/17/17 10/04/18 History Men's 50 Plus Multivitamin 1 tab PO PM 08/19/18 10/04/18 History lisinopril 20 mg PO AMHS 09/06/18 10/04/18 History omeprazole 20 mg PO DAILYBB 09/16/18 10/04/18 History Xarelto 20 mg PO QDD 30 Days #30 tab 09/20/18 10/04/18 Rx amlodipine [Norvasc] 5 mg PO QAM 30 Days #30 tab 09/20/18 10/04/18 Rx famotidine 20 mg PO BID PRN 30 Days #60 tab 09/20/18 10/04/18 Rx potassium chloride 20 meq PO DAILY #450 ml 09/20/18 10/04/18 Rx acetaminophen [Tylenol] 325 mg PO Q6H PRN 10/04/18 10/04/18 History ciprofloxacin HCl 500 mg PO Q12H #14 tab 10/04/18 Rx oxycodone-acetaminophen [Percocet] 1 tab PO Q8H PRN #7 tab 10/04/18 Rx tamsulosin 0.4 mg PO HS #30 cap 10/04/18 Rx Patient History Medical History History of pulmonary embolism (Chronic) [facility] 09/06. Discharged on Xarelto. Left hemiparesis (Chronic) DM type 2 (diabetes mellitus, type 2) (Chronic) A1c 6.3 07/2018 Seizure disorder (Chronic) 2/2 CVA. On Keppra. Bile leak, postoperative (Chronic) After lap carlotta 08/20, had subsequent ERCP with stent placement, stent removed 09/30. PAD (peripheral artery disease) (Chronic) History of stroke (Chronic) 5 years ago, residual CANNOT USE LEFT ARM - IN SLING; LEFT LEG WEAK - USES YEN WALKER HTN (hypertension) (Chronic) Bladder tumor (Acute) Noted incidentally on CT 09/16/18. Patient to ED on 09/29 with hematuria. On anticoagulant therapy CURRENTLY ON HOLD [facility] 09/29/18 DUE TO HEMATURIA. PT TO F/U 10/02/18 WITH PCP REGARDING HIS XARELTO. Surgical History History of right common carotid artery stent placement (Chronic) H/O umbilical hernia repair (Chronic) History of cholecystectomy (Chronic) Due to gangrenous gallbladder. Complicated by bile leak, had subsequent ERCP with stent placement on 08/21. To [facility] ED 09/16 with sepsis. CARA drain removed, IV ABX. History of appendectomy (Resolved) History of colonoscopy History of cystoscopy S/P ERCP 09/30 for stent removal, [facility]. Family History Mother Diabetes Father Stroke Social History Preferred Language: Croatian Communication Ability: Effective Communication Ability Comment: PATIENT MAY HESITATE PRIOR TO ANSWERING TO "THINK WHAT HE NEEDS TO SAY" [employer] Director Required: No Beliefs That Will Affect Care: None marital status: Current Living Situation: Spouse Other Information That Helps Us Care for You: No Feels Safe at Home: Yes Safety Concerns: Feels Safe At This Time Smoking Status: Former smoker Tobacco Type: cigarettes Smoking End Date: 5 years ago Second Hand Exposure: No Tobacco Cessation Education Requested by Patient: No Hx Alcohol Use: No Hx Substance Use: No Review of Systems Review of Systems: All systems reviewed & are unremarkable except as noted in HPI & below Physical Exam Physical Exam: Physical Exam: Vitals signs as noted above General Appearance: Chronically ill-appearing, no apparent distress Head: normocephalic, Atraumatic Eyes: normal inspection, EOMI Neck: supple, Trachea midline Respiratory/Chest: Decreased breath sounds, CTA Cardiovascular: S1, S2, No murmur, +Tachycardia Abdomen/GI:Soft, mild suprapubic tender, No guarding/rigidity, Bowel sounds present Extremities/Musculoskelatal:normal inspection, no edema Neurologic/Psych:AAOX3, Left sided weakness from Prior CVA Skin: normal color, warm Results & Data Vital Signs (Past 12 Hours) Vital Signs Temp Pulse Resp BP Pulse Ox 10/05/18 11:43 36.7 C 98 H 20 146/78 H 90 10/05/18 07:53 37.0 C 84 20 135/68 92 10/05/18 03:55 37.0 C 74 18 126/70 94 Laboratory Results Short CBC 10/05/18 10/05/18 Range/Units 10:24 13:27 WBC 10.23 (4.8-10.8) K/uL Hgb 12.9 L 12.1 L (14.0-18.0) g/dL Hct 39.3 L 36.5 L (42-52) % Plt Count 348 (130-400) K/uL BMP 10/05/18 10:24 Sodium 140 Potassium 3.4 L Chloride 104 Carbon Dioxide 28 BUN 8 Creatinine 0.67 Glucose 123 H Calcium 8.4 L Diagnostic Findings Retrograde pyelogram: Intraprocedural fluoroscopic spot images during placement of a left-sided nephroureteral stent Medications Administered Current Inpatient Medications Acetaminophen (Tylenol) 650 mg PO Q6H PRN PRN Reason: MILD Pain (Scale 1,2,3) Stop: 11/03/18 12:37 Last Admin: 10/05/18 11:02 Dose: 650 mg Documented by: Amlodipine Besylate (Norvasc) 5 mg PO QAM [facility] Stop: 11/04/18 08:59 Last Admin: 10/05/18 07:31 Dose: 5 mg Documented by: Ciprofloxacin (Cipro) 500 mg PO BID [facility] Stop: 10/14/18 20:59 Last Admin: 10/05/18 07:32 Dose: 500 mg Documented by: Docusate Sodium (Colace) 100 mg PO BID [facility] Stop: 11/03/18 20:59 Last Admin: 10/05/18 07:32 Dose: 100 mg Documented by: Ezetimibe (Zetia) 10 mg PO QPM [facility] Stop: 11/03/18 20:59 Last Admin: 10/04/18 21:08 Dose: 10 mg Documented by: Enoxaparin Sodium (Lovenox) 70 mg SC Q12H [facility] Stop: 11/04/18 13:14 Last Admin: 10/05/18 14:10 Dose: 70 mg Documented by: Famotidine (Pepcid) 20 mg PO BID PRN PRN Reason: heartburn Stop: 11/03/18 12:43 Sodium Chloride (Nss 1000ml) 1,000 mls @ 75 mls/hr IV .[id number] [facility] Stop: 11/03/18 12:44 Last Admin: 10/05/18 18:15 Dose: 75 mls/hr Documented by: Insulin Aspart (Novolog Flexpen) 0 units SC [facility] Stop: 10/06/18 11:30 Last Admin: 10/05/18 18:17 Dose: 2 units Documented by: Levetiracetam (Keppra) 1,500 mg PO [facility] Stop: 11/03/18 20:59 Last Admin: 10/05/18 07:32 Dose: 1,500 mg Documented by: Lisinopril (Zestril) 20 mg PO [facility] Stop: 11/03/18 20:59 Last Admin: 10/05/18 08:21 Dose: 20 mg Documented by: Metformin HCl (Glucophage) 500 mg PO BIDM [facility] Stop: 11/03/18 12:44 Last Admin: 10/04/18 14:59 Dose: Not Given Documented by: Ondansetron HCl (Zofran) 4 mg IV Q6H PRN PRN Reason: Nausea And Vomiting Stop: 11/03/18 12:37 Oxycodone/Acetaminophen (Percocet 5mg/325mg) 1 tab PO Q4H PRN PRN Reason: MODERATE Pain (Scale 4,5,6) Stop: 10/18/18 12:37 Last Admin: 10/04/18 13:57 Dose: 1 tab Documented by: Pantoprazole Sodium (Protonix) 40 mg PO DAILYBB [facility] Stop: 11/04/18 06:29 Last Admin: 10/05/18 05:33 Dose: 40 mg Documented by: Potassium Chloride (Marian Ciel Elix) 20 meq PO DAILY [facility] Stop: 11/04/18 08:59 Last Admin: 10/05/18 07:31 Dose: 20 meq Documented by: Rivaroxaban (Xarelto) 20 mg PO QDD [facility] Stop: 11/03/18 16:29 Last Admin: 10/04/18 17:25 Dose: Not Given Documented by:
[2018-10-05 13:38] LABS: Hematocrit (blood only) 36.5 % (42-52); Hemoglobin 12.1 g/dL (14.0-18.0)
[2018-10-05] MEDS: ENOXAPARIN 80 MG/0.8 ML SYR SC SCH ×2 (14:10→22:03)
[2018-10-05] MEDS: EZETIMIBE 10 MG TABLET PO SCH (20:30)
[2018-10-05 21:55] LABS: Hematocrit (blood only) 35.8 % (42-52); Hemoglobin 11.7 g/dL (14.0-18.0)
[2018-10-06] MEDS: SODIUM CHLORIDE 0.9% 1000ML 1,000 ML IV SCH (05:35)
[2018-10-06] MEDS: PANTOprazole 40 MG TAB PO SCH (05:35)
[2018-10-06 05:46] LABS: Hematocrit (blood only) 37.3 % (42-52); Hemoglobin 12.5 g/dL (14.0-18.0); Mean Corpuscular Hgb Conc 33.5 g/dL (32-36); Mean Corpuscular Volume 90.1 fL (80-100); Mean Platelet Volume 9.6 fL (7.4-10.4); Platelet Count 328 K/uL (130-400); RDW Coefficient of Variation 14.1 % (11.5-14.5); RDW Standard Deviation 46.6 fL (36.4-46.3); Red Blood Count 4.14 M/uL (4.7-6.1); White Blood Count 8.93 K/uL (4.8-10.8)
[2018-10-06 06:14] LABS: BUN Creatinine Ratio 10.9 (10-20); Calcium 8.6 mg/dl (8.5-10.1); Creatinine Clr Calc Pharmacy 101.3 ml/min; Est GFR (African American) 115.6; Est GFR (Non-African American) 99.8; Magnesium 1.7 mg/dl (1.8-2.4); Potassium 3.6 mmol/L (3.5-5.1)
[2018-10-06] MEDS: MAGNESIUM SULFATE / D5W 1 GM/100 ML BAG IV SCH ×2 (08:06→09:09)
[2018-10-06] MEDS: POTASSIUM CHLORIDE 20 MEQ/15 ML UDC PO SCH (08:08)
[2018-10-06] MEDS: LISINOPRIL 20 MG TAB PO SCH (08:08)
[2018-10-06] MEDS: AMLODIPINE BESYLATE 5 MG TAB PO SCH (08:08)
[2018-10-06] MEDS: INSULIN ASPART 100 UNITS/ML 3 ML PEN SC SCH ×2 (08:08→12:28)
[2018-10-06] MEDS: CIPROFLOXACIN 500 MG TAB PO SCH (08:08)
[2018-10-06] MEDS: levETIRAcetam 500 MG TAB PO SCH (08:08)
[2018-10-06] MEDS: DOCUSATE SODIUM 100 MG CAP PO SCH (08:08)
[2018-10-06] MEDS: ACETAMINOPHEN 325 MG TAB PO PRN (09:13)
[2018-10-06] MEDS: ENOXAPARIN 80 MG/0.8 ML SYR SC SCH (12:40)
--- NOTE | 2018-10-06 12:46 | Urology Progress Note ---
Date of Service October 06, 2018 Assessment & Plan (1) Lesion of bladder: POD 2 s/p TURBT Urine clear. Kept to have lovenox started and transition to anticoagulation. Monitor for bleeding. Bleeding tumor has been resected. No severe bleeding Likely can go home as long as stable from Pulmonary and anticoagulation. Will remove catheter today. Can go home once okay from Hospitalist. Plan to have D/c Order in Place unless other workup necessary. (2) History of stroke: Hospitalist consult. (3) History of pulmonary embolism: Hospitalist consult Subjective Patient kept to start Lovenox in transition back to home anticoagulation. Mild to moderate irritation with catheter. Mild red/pink in bag. Yellow in tubing. NO major issues. no severe pain. no severe issues. NO major changes. Has urgency and frequency. Discussed that this may continue. Patient tolerating Stent. Will go home with stent in place. Review of Systems Review of Systems: All systems reviewed & are unremarkable except as noted in HPI & below Physical Exam Constitutional: no acute distress and not ill appearing Eyes: eyes not dysmorphic and no conjunctival abnormality ENMT: Ears: no hearing impairment Nose: no external nose abnormality Neck: normal visual inspection and + facial hair Respiratory: normal respiratory effort Cardiovascular: Rate/Rhythm: regular rate Gastrointestinal (Abdomen): Percussion/Palpation: no guarding and abdomen not rigid Skin: no rashes and no jaundice Trauma: no evidence of skin trauma Neurologic: + does not move all extremities Motor/Sensory: + sensory deficit (Left hemiparesis) Psychiatric: Orientation: alert and oriented x 3 Lymphatic: no lymphadenopathy Results & Data Vital Signs (Past 12 Hours) Vital Signs Temp Pulse Pulse Resp BP Pulse Ox 10/06/18 11:36 37.1 C 92 H 20 129/72 93 10/06/18 08:00 89 10/06/18 07:07 36.7 C 81 18 152/80 H 92 10/06/18 04:00 37.1 C 92 H 19 150/74 H 93
[2018-10-06 13:05] LABS: Hematocrit (blood only) 36.9 % (42-52); Hemoglobin 12.3 g/dL (14.0-18.0)
--- NOTE | 2018-10-06 15:24 | Hospitalist Progress Note ---
Date of Service October 06, 2018 Assessment & Plan (1) History of pulmonary embolism: Stop Lovenox and restart home Xarelto this evening. (2) History of stroke: chronic neurologic deficits seen on exam. Ambulatory dysfunction. Has home support from family and specialized equipment to help him get around. (3) Post-operative state: Doing well post- TURBT. Urology pulling Mcguire and he has been hemodynamic ally stable and afebrile for the last couple of days. (4) DVT prophylaxis: Lovenox Dispo-discharge to home Marion Castillo DO [facility] Hospitalist Subjective 73-year-old post CVA patient who was found to have a 6.3 cm bladder tumor on evaluation for gross hematuria couple weeks ago. He recently had this removed on 10/04 and has been doing well postoperatively. He has been on Lovenox pending clinical improvement for the last couple of days. Urology is requesting assistance with management of anticoagulants. He had a PE on 09/06 which was provoked in the setting of multiple hospitalizations including a gangrenous necrotizing cholecystitis event resulting in cholecystectomy on 08/20. This was complicated by a bile leak and he underwent an ERCP with biliary stent placement on 08/21. He was discharged home and subsequently developed bilateral PE which was found on 09/06. He was then sent home on Xarelto but presented again to the hospital for sepsis secondary to an abdominal cellulitis and was sent home on Keflex. It was after this he developed gross hematuria in the bladder tumor was found. He denies any symptoms at this time including no chest pain, shortness of breath and he is breathing on room air without any distress. He feels back to his baseline and has ambulatory dysfunction as a result of the CVA, but feels he is ambulating at his baseline. He was seen by physical therapy who agrees with returning him home. Family is at bedside and all questions were answered. Review of Systems Review of Systems: All systems reviewed & are unremarkable except as noted in HPI & below Physical Exam Physical Exam: CONSTITUTIONAL: WNWD, vitals as above, generally well- appearing, on a bedpan EYES: normal conjunctivae, no scleral icterus ENT: MMM RESPIRATORY: clear to auscultation bilaterally, no crackles, rales or wheezes, normal respiratory effort CARDIOVASCULAR: regular rate and rhythm, S1 and 2 heard without murmurs, gallops or rubs, no JVD, no peripheral edema, no carotid bruits GASTROINTESTINAL: normal bowel sounds, soft, nontender, nondistended MUSCULOSKELETAL: LUE paralysis post-CVA, otherwise moving extremities equally, head is normocephalic and atraumatic SKIN: warm and diaphoretic NEUROLOGIC: CN 2-12 grossly intact, normal cognition, normal speech PSYCHIATRIC: alert cooperative and oriented to person, place and time. Results & Data Vital Signs (Past 12 Hours) Vital Signs Temp Pulse Pulse Resp BP Pulse Ox 10/06/18 14:40 37.1 C 92 H 20 129/72 93 10/06/18 11:36 37.1 C 92 H 20 129/72 93 10/06/18 08:00 89 10/06/18 07:07 36.7 C 81 18 152/80 H 92 10/06/18 04:00 37.1 C 92 H 19 150/74 H 93 Laboratory Results Short CBC 10/05/18 10/06/18 10/06/18 Range/Units 21:20 05:27 12:59 WBC 8.93 (4.8-10.8) K/uL Hgb 11.7 L 12.5 L 12.3 L (14.0-18.0) g/dL Hct 35.8 L 37.3 L 36.9 L (42-52) % Plt Count 328 (130-400) K/uL BMP 10/06/18 05:27 Sodium 138 Potassium 3.6 Chloride 106 Carbon Dioxide 27 BUN 7 Creatinine 0.61 Glucose 123 H Calcium 8.6 Medications Administered Current Inpatient Medications Acetaminophen (Tylenol) 650 mg PO Q6H PRN PRN Reason: MILD Pain (Scale 1,2,3) Stop: 11/03/18 12:37 Last Admin: 10/06/18 09:13 Dose: 650 mg Documented by: Amlodipine Besylate (Norvasc) 5 mg PO QAM [facility] Stop: 11/04/18 08:59 Last Admin: 10/06/18 08:08 Dose: 5 mg Documented by: Ciprofloxacin (Cipro) 500 mg PO BID [facility] Stop: 10/14/18 20:59 Last Admin: 10/06/18 08:08 Dose: 500 mg Documented by: Docusate Sodium (Colace) 100 mg PO BID [facility] Stop: 11/03/18 20:59 Last Admin: 10/06/18 08:08 Dose: 100 mg Documented by: Ezetimibe (Zetia) 10 mg PO QPM [facility] Stop: 11/03/18 20:59 Last Admin: 10/05/18 20:30 Dose: 10 mg Documented by: Enoxaparin Sodium (Lovenox) 70 mg SC Q12H [facility] Stop: 11/04/18 13:14 Last Admin: 10/06/18 12:40 Dose: 70 mg Documented by: Famotidine (Pepcid) 20 mg PO BID PRN PRN Reason: heartburn Stop: 11/03/18 12:43 Sodium Chloride (Nss 1000ml) 1,000 mls @ 75 mls/hr IV .[id number] [facility] Stop: 11/03/18 12:44 Last Admin: 10/06/18 05:35 Dose: 75 mls/hr Documented by: Levetiracetam (Keppra) 1,500 mg PO [facility] Stop: 11/03/18 20:59 Last Admin: 10/06/18 08:08 Dose: 1,500 mg Documented by: Lisinopril (Zestril) 20 mg PO [facility] Stop: 11/03/18 20:59 Last Admin: 10/06/18 08:08 Dose: 20 mg Documented by: Metformin HCl (Glucophage) 500 mg PO BIDM [facility] Stop: 11/03/18 12:44 Last Admin: 10/04/18 14:59 Dose: Not Given Documented by: Ondansetron HCl (Zofran) 4 mg IV Q6H PRN PRN Reason: Nausea And Vomiting Stop: 11/03/18 12:37 Oxycodone/Acetaminophen (Percocet 5mg/325mg) 1 tab PO Q4H PRN PRN Reason: MODERATE Pain (Scale 4,5,6) Stop: 10/18/18 12:37 Last Admin: 10/04/18 13:57 Dose: 1 tab Documented by: [facility] Stop: 11/04/18 06:29 Last Admin: 10/06/18 05:35 Dose: 40 mg Documented by: Potassium Chloride (Marian Ciel Elix) 20 meq PO DAILY [facility] Stop: 11/04/18 08:59 Last Admin: 10/06/18 08:08 Dose: 20 meq Documented by: Rivaroxaban (Xarelto) 20 mg PO QDD [facility] Stop: 11/03/18 16:29 Last Admin: 10/04/18 17:25 Dose: Not Given Documented by:
--- NOTE | 2018-10-07 09:43 | Discharge Summary ---
Date of Service October 07, 2018 Admission HPI Per Admitting Provider Bladder Mass. See H&P Admission Exam Per Admitting Provider See H&P Principal Diagnosis Bladder Mass Discharge Exam Constitutional no acute distress and not ill appearing Eyes eyes not dysmorphic and no conjunctival abnormality ENMT Ears: no hearing impairment Nose: no external nose abnormality Neck normal visual inspection and + facial hair Respiratory normal respiratory effort Cardiovascular Rate/Rhythm: regular rate Gastrointestinal (Abdomen) Percussion/Palpation: no guarding and abdomen not rigid Skin no rashes and no jaundice Trauma: no evidence of skin trauma Neurologic + does not move all extremities Motor/Sensory: + sensory deficit (Left hemiparesis) Psychiatric Orientation: alert and oriented x 3 Lymphatic no lymphadenopathy Discharge Data Allergies Allergy/AdvReac Type Severity Reaction Status Date / Time Rxifzkk-Bul-Psk Reductase AdvReac Severe MUSCLE Verified 10/04/18 08:47 Inhibitor CRAMPS lactose AdvReac Intermediate GI SYMPTOMS Verified 10/04/18 08:47 Consultations 10/04/18 12:38 Consult Hospitalist Routine Procedures Performed Operation Date: 10/04/18 10:45 Actual Procedures p Transurethral Resection of Bladder Tumor, (Left) - Cruz Harry II, DO s Left Retrograde Pyelogram and Stent Insertion(Left) - Cruz Harry II, DO Ordered Studies 10/04/18 09:30 FL retrograde includes kub Routine Hospital Course (1) Lesion of bladder: POD 2 s/p TURBT Urine clear. Kept to have lovenox started and transition to anticoagulation. Monitor for bleeding. Bleeding tumor has been resected. No severe bleeding Likely can go home as long as stable from Pulmonary and anticoagulation. Will remove catheter today. Can go home once okay from Hospitalist. Plan to have D/c Order in Place unless other workup necessary. (2) History of stroke: Hospitalist consult. (3) History of pulmonary embolism: Hospitalist consult Total Time Total Time Spent Total Time Spent (In Minutes): 15 Total Time Includes: Examination of the Patient, Discharge Planning, Medication Reconciliation and Communication With Other Providers Discharge Plan Discharge Items Patient Disposition: Home - Self-Care Reason For Visit: Bladder Mass Discharge Diagnosis: Same Discharge Goals: Decrease discomfort Activity: Resume your previous activity Non-emergency contact: Urologist Call non-emergency contact if: you have any medication questions, your symptoms worsen, your pain is not controlled, your pain is worsening, your pain is unusual for you, your pain is concerning for you and your temperature is above 101.5 Follow-up/Referrals: Raul Benitez MD [Primary Care Provider] - Marion Castillo DO [Hospitalist] - Diet: Regular Addtl Provider Instructions: May have blood in urine. May have pelvic discomfort. Monitor for fevers or chills. Okay to restart blood thinner post procedure. If emptying and no major clots can continue. Call if trouble voiding, discomfort, inability to void for 4-6 hours at a time, or severe straining. Prescriptions: New oxycodone-acetaminophen [Percocet] 7.5-325 mg tablet 1 tab PO Q8H PRN (Reason: pain) Qty: 7 RF: 0 tamsulosin 0.4 mg capsule 0.4 mg PO HS Qty: 30 RF: 2 ciprofloxacin HCl 500 mg tablet 500 mg PO Q12H Qty: 14 RF: 0 Continued metformin 500 mg Tablet 500 mg PO AMPM RF: 0 levetiracetam 750 mg Tablet 1,500 mg PO AMHS RF: 0 ezetimibe [Zetia] 10 mg Tablet 10 mg PO QPM RF: 0 Men's 50 Plus Multivitamin 400-20-370 mcg Tablet 1 tab PO PM RF: 0 omeprazole 20 mg Capsule,Delayed Release(Dr/Ec) 20 mg PO DAILYBB RF: 0 amlodipine [Norvasc] 5 mg Tablet 5 mg PO QAM 30 Days Qty: 30 RF: 0 famotidine 20 mg Tablet 20 mg PO BID PRN (Reason: heartburn) 30 Days Qty: 60 RF: 0 potassium chloride 20 mEq/15 mL liquid 20 meq PO DAILY Qty: 450 RF: 0 Xarelto 20 mg Tablet 20 mg PO QDD 30 Days Qty: 30 RF: 0 lisinopril 20 mg tablet 20 mg PO AMHS RF: 0 acetaminophen [Tylenol] 325 mg Capsule 325 mg PO Q6H PRN (Reason: Pain) RF: 0 Stand-Alone Forms: [facility] Discharge Orders: Discharge Order (Routine); Ordered 10/06/18 Ordered By: Cruz Harry II Admission Data Admit Date/Time: 10/04/18 12:38 Attending Provider: Cruz Harry II Admit Provider: Cruz Harry II Primary Care Provider: Raul Benitez Other Providers: Prisca Sheikh ; Darlene Gayle ; Carlos Holden ; Jose Raul Mijares ; Kaia Villegas I ; Michael Young ; Karolyn Franz ; Dwayne Leahy ; Shawn Tarango ; Lewis Caputo ; Vero Ortiz ; Jyoti Yang ; Lori Lindsay ; Marion Castillo Service: Telemetry Medical Other Interventions: Discharge Summary Assessment (RN) Last Done: 10/06/18 14:40 DC Date/Time DO NOT enter until pt leaves facility: 10/06/18 15:46
== END 2018-10-06 15:46 | disposition home or self-care (01) ==
LOC: 2N 08:23 → ASU 08:23

== ENCOUNTER 2020-01-10 21:02 | Inpatient (IN) ==
[2020-01-10] MEDS ORDERED: SODIUM CHLORIDE 0.9% 1000ML 1,000 ML IV SCH (21:30)
[2020-01-10] MEDS ORDERED: CEFEPIME 2,000 MG/20 ML VIAL IV STA (21:52)
[2020-01-10] MEDS ORDERED: ACETAMINOPHEN 500 MG TAB PO STA (21:52)
--- NOTE | 2020-01-10 21:56 | Emergency Department Note ---
Impression & Plan Sepsis ED Provider Note INFORMANT: Patient ED PROVIDER(S): Dwayne Garcia MD CHIEF COMPLAINT: Fever PLAN: Disposition: Admitted Condition: Good MEDICAL DECISION MAKING: Patient presented emerge department complaining of fever. He also had a mild productive cough. The patient was given Tylenol. He was given IV fluids. Blood work, cultures and lactate were performed. The patient had a mild leukocytosis on CBC. His lactate was elevated. Repeat was ordered. Urinalysis pending. Chemistry panel unremarkable. Patient was given IV cefepime. Chest x-ray was concerning for right infrahilar infiltrate. He was also ordered vancomycin. Patient had a negative cover test. His did present to the ER. She noted the cough and fever. She also noted that he did mention more abdominal discomfort over the last few days. CT imaging of the abdomen pelvis was added. Consultation was made with the [facility] for admission. CT imaging did not reveal any acute process. Patient was evaluated in the ER by internal medicine for admission. Patient did not have any hypotension. He did receive 30 mL/kg of fluid for suspected sepsis with saline boluses and fluid in his antibiotic infusion due to his elevated lactic acidosis. Lactic repeat showed some decrease. Triage Nursing notes reviewed and agree them. Additional history obtained from patient's Vital Signs: reviewed and remarkable for tachycardia and fever. Differential diagnosis: Sepsis, UTI, pneumonia, metabolic, electrolyte abnormalities, cardiac sources, intracerebral event, toxicologic, neurologic, as well as other pathologies. Diagnostics interpreted by me: ECG: Rate: 121 Rhythm: Sinus tachycardia [place]:Normal QRS:Normal ST segements:No elevation or depression Other:No PACs or PVCs Cardiac Monitoring: Cardiac monitoring ordered by me: The patient was placed on continuous cardiac monitoring and observed. It revealed a sinus tachycardia at 103 beats per minute without ectopy or evidence of dysrhythmia. Imaging studies: Chest x-ray is concerning for right infrahilar infiltrate. CT imaging of the abdomen pelvis was negative for acute pathology per stat rad. Consultation(s): Dr. Marcos Oro, [facility] HPI: The patient is a 74 year old male who presents to the Emergency Room with complaints of fever. This started today and is persisting. The patient also notes the following associated symptoms, cough with productive sputum. The patient has found no relieving factors. Current pain is rated as 3/10. Patient states he has chronic abdominal discomfort, constipation and diarrhea since having his gallbladder removed. The patient also has a history of stroke and is left with a left sided extremity weakness. Pt denies LOC, headache, chills, diaphoresis, visual changes, neck pain, chest pain, nausea, vomiting, new abdominal pain, back pain, melena, hematochezia, urinary symptoms, numbness, new weakness, lymphadenopathy, rash, or other complaints. ROS: See above HPI for pertinent positives & negatives. A total of 10 systems reviewed and were otherwise negative. PAST MEDICAL HISTORY:See Below, CVA PAST SURGICAL HISTORY:See Below, FAMILY HISTORY:See Below SOCIAL HISTORY:See Below, HOME MEDICATIONS:See Below ALLERGIES:See Below VITALS:See Below PHYSICAL EXAMINATION: GENERAL: Awake, alert, mildly ill-appearing, in no distress HENT: Normocephalic, atraumatic. Oropharynx unremarkable. EYES: Normal conjunctiva. Sclera non-icteric. NECK: Inspection normal. Non-tender. Supple. No nuchal rigidity. FROM. No masses. RESPIRATORY: Clear to auscultation. No wheezes. No rales. Normal respiratory effort. CARDIAC: Tachycardic rate. Normal rhythm. No murmurs. No rubs. Extremities warm and well perfused. Pulses equal. No JVD. GI: Soft, non-distended. No tenderness to palpation. No rebound or guarding. No masses. RECTAL: Deferred. MUSCULOSKELETAL: Atraumatic. Chest examination reveals no tenderness. The back is symmetrical on inspection without obvious abnormality. There is no CVA tenderness to palpation. No joint edema. LOWER EXTREMITIES: Calves are equal size bilaterally and non-tender. No edema. No discoloration. NEURO: Normal sensorium. No sensory or motor deficits noted. SKIN: No rash or jaundice noted. Dwayne Garcia MD Past Med/Surg History Medical History (Updated 01/10/20 @ 21:53 by Dwayne Garcia MD) Bile leak, postoperative After lap carlotta 08/20, had subsequent ERCP with stent placement, stent removed 09/30. Bladder tumor Noted incidentally on CT 09/16/18. Patient to ED on 09/29 with hematuria. DM type 2 (diabetes mellitus, type 2) A1c 6.3 07/2018 History of pulmonary embolism [facility] 09/06. Discharged on Xarelto. History of stroke 5 years ago, residual CANNOT USE LEFT ARM - IN SLING; LEFT LEG WEAK - USES YEN WALKER HTN (hypertension) Left hemiparesis On anticoagulant therapy CURRENTLY ON HOLD FROM E.R. 09/29/18 DUE TO HEMATURIA. PT TO F/U 10/02/18 WITH P CP REGARDING HIS XARELTO. PAD (peripheral artery disease) Seizure disorder 2/2 CVA. On Keppra. Surgical History H/O umbilical hernia repair History of appendectomy History of cholecystectomy Due to gangrenous gallbladder. Complicated by bile leak, had subsequent ERCP with stent placement on 08/21. To [facility] ED 09/16 with sepsis. CARA drain removed, IV ABX. History of colonoscopy History of cystoscopy History of right common carotid artery stent placement S/P ERCP 09/30 for stent removal, [facility]. 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: No Beliefs That Will Affect Care: None marital status: Current Living Situation: Spouse Feels Safe at Home: Yes Assistive Devices: Walker and Wheelchair Allergies Allergies Allergy/AdvReac Type Severity Reaction Status Date / Time [id number] Reductase AdvReac Severe MUSCLE Verified 01/10/20 23:28 Inhibitor CRAMPS lactose AdvReac Intermediate GI SYMPTOMS Verified 01/10/20 23:28 Home Meds Home Medications Medication Instructions Recorded Confirmed ezetimibe [Zetia] 10 mg PO QPM 12/17/17 01/10/20 levetiracetam 1,500 mg PO AMHS 12/17/17 01/10/20 metformin 500 mg PO BIDM 12/17/17 01/10/20 lisinopril 20 mg PO AMHS 09/06/18 01/10/20 acetaminophen [Tylenol] 325 mg PO Q6H PRN 10/04/18 01/10/20 amlodipine 5 mg PO QAM 01/10/20 01/10/20 rivaroxaban [Xarelto] 20 mg PO DAILY 01/10/20 01/10/20 Results & Data (ED) Vital Signs Vital Signs - 24 hr 01/10/20 21:05 01/10/20 21:22 01/10/20 21:30 Temperature 37.9 C H Temperature Source Oral Pulse Rate 132 H 123 H 121 H Pulse Rate from SpO2 Sensor 123 H 121 H Respiratory Rate 18 23 24 Respiratory Effort / Characteristics Non-Labored Spontaneous Respiratory Depth Normal Respiratory Pattern Regular Blood Pressure 164/72 H Blood Pressure Mean 102 Blood Pressure Position Sitting Pulse Oximetry 92 94 94 Oxygen Delivery Method Room Air Room Air Room Air Sepsis Recent Fever Within 48 Hours Yes Sepsis New/Unexplained Change in Mental Status No Sepsis Action Taken by Nursing No Action Required 01/10/20 21:40 01/10/20 21:43 01/10/20 21:50 Temperature Temperature Source Pulse Rate 125 H 120 H Pulse Rate from SpO2 Sensor 124 H 119 H Respiratory Rate 16 19 Respiratory Effort / Characteristics Respiratory Depth Respiratory Pattern Blood Pressure Blood Pressure Mean Blood Pressure Position Pulse Oximetry 93 94 93 Oxygen Delivery Method Room Air Room Air Room Air Sepsis Recent Fever Within 48 Hours Sepsis New/Unexplained Change in Mental Status Sepsis Action Taken by Nursing 01/10/20 21:51 01/10/20 22:00 01/10/20 22:01 Temperature Temperature Source Pulse Rate 119 H 119 H 121 H Pulse Rate from SpO2 Sensor 120 H 119 H 122 H Respiratory Rate 15 20 21 Respiratory Effort / Characteristics Respiratory Depth Respiratory Pattern Blood Pressure 110/57 L 117/66 Blood Pressure Mean 76 99 Blood Pressure Position Pulse Oximetry 93 92 93 Oxygen Delivery Method Room Air Room Air Room Air Sepsis Recent Fever Within 48 Hours Sepsis New/Unexplained Change in Mental Status Sepsis Action Taken by Nursing 01/10/20 22:10 01/10/20 22:20 01/10/20 22:30 Temperature Temperature Source Pulse Rate 116 H 116 H 118 H Pulse Rate from SpO2 Sensor 116 H 116 H 118 H Respiratory Rate 21 20 24 Respiratory Effort / Characteristics Respiratory Depth Respiratory Pattern Blood Pressure 149/68 H Blood Pressure Mean 88 Blood Pressure Position Pulse Oximetry 92 92 93 Oxygen Delivery Method Room Air Room Air Sepsis Recent Fever Within 48 Hours Sepsis New/Unexplained Change in Mental Status Sepsis Action Taken by Nursing 01/10/20 23:00 01/10/20 23:30 01/11/20 00:05 Temperature Temperature Source Pulse Rate 116 H 108 H 103 H Pulse Rate from SpO2 Sensor 116 H 108 H 103 H Respiratory Rate 19 20 23 Respiratory Effort / Characteristics Respiratory Depth Respiratory Pattern Blood Pressure 142/76 H 144/74 H 134/68 Blood Pressure Mean 82 97 84 Blood Pressure Position Pulse Oximetry 92 93 94 Oxygen Delivery Method Room Air Room Air Sepsis Recent Fever Within 48 Hours Sepsis New/Unexplained Change in Mental Status Sepsis Action Taken by Nursing 01/11/20 00:24 Temperature 37.0 C Temperature Source Oral Pulse Rate Pulse Rate from SpO2 Sensor Respiratory Rate Respiratory Effort / Characteristics Respiratory Depth Respiratory Pattern Blood Pressure Blood Pressure Mean Blood Pressure Position Pulse Oximetry Oxygen Delivery Method Sepsis Recent Fever Within 48 Hours Sepsis New/Unexplained Change in Mental Status Sepsis Action Taken by Nursing Laboratory Data Result diagrams: 01/10/20 21:40 01/10/20 21:40 Lab Results 01/10/20 01/10/20 01/10/20 Range/Units 21:35 21:35 21:40 WBC 15.02 H (4.8-10.8) K/uL RBC 4.82 (4.7-6.1) M/uL Hgb 15.1 (14.0-18.0) g/dL Hct 44.5 (42-52) % MCV 92.3 (80-100) fL MCH 31.3 (25-34) pg MCHC 33.9 (32-36) g/dL RDW Std Deviation 44.5 (36.4-46.3) fL RDW Coeff of Araceli 13.1 (11.5-14.5) % Plt Count 321 (130-400) K/uL MPV 10.1 (7.4-10.4) fL Immature Gran % (Auto) 0.3 % Neut % (Auto) 79.3 % Lymph % (Auto) 11.4 % [place] % (Auto) 7.9 % Eos % (Auto) 0.9 % Baso % (Auto) 0.2 % Neut # (Auto) 11.91 H (1.4-6.5) K/uL Lymph # (Auto) 1.71 (1.2-3.4) K/uL [place] # (Auto) 1.18 H (0.11-0.59) K/uL Eos # (Auto) 0.14 (0-0.5) K/uL Baso # (Auto) 0.03 (0-0.2) K/uL Immature Gran # (Auto) 0.05 H (0.00-0.02) K/uL PT (9.0-12.0) Seconds INR (0.9-1.1) APTT (21.0-31.0) Seconds PTT Ratio Sodium (136-145) mmol/L Potassium (3.5-5.1) mmol/L Chloride (98-107) mmol/L Carbon Dioxide (21-32) mmol/L Anion Gap (3-11) BUN (7-18) mg/dl Creatinine (0.6-1.4) mg/dl Est Cr Clr Drug Dosing Est GFR ( Amer) Est GFR (Non-Af Amer) BUN/Creatinine Ratio (10-20) Glucose (70-99) mg/dl Lactate (0.4-2.0) mmol/L Calcium (8.5-10.1) mg/dl Magnesium (1.8-2.4) mg/dl Total Bilirubin (0.2-1) mg/dl AST (15-37) U/L ALT (12-78) U/L Alkaline Phosphatase (45-117) U/L Troponin I (0-0.045) ng/ml Total Protein (6.4-8.2) gm/dl Albumin (3.4-5.0) gm/dl Globulin (2.5-4.0) gm/dl Albumin/Globulin Ratio (0.9-2) COVID-19 Eval Order Covid19 Done at [facility] COVID-19 PCR NEGATIVE (Negative) 01/10/20 01/10/20 01/10/20 Range/Units 21:40 21:40 21:40 WBC (4.8-10.8) K/uL RBC (4.7-6.1) M/uL Hgb (14.0-18.0) g/dL Hct (42-52) % MCV (80-100) fL MCH (25-34) pg MCHC (32-36) g/dL RDW Std Deviation (36.4-46.3) fL RDW Coeff of Araceli (11.5-14.5) % Plt Count (130-400) K/uL MPV (7.4-10.4) fL Immature Gran % (Auto) % Neut % (Auto) % Lymph % (Auto) % [place] % (Auto) % Eos % (Auto) % Baso % (Auto) % Neut # (Auto) (1.4-6.5) K/uL Lymph # (Auto) (1.2-3.4) K/uL [place] # (Auto) (0.11-0.59) K/uL Eos # (Auto) (0-0.5) K/uL Baso # (Auto) (0-0.2) K/uL Immature Gran # (Auto) (0.00-0.02) K/uL PT 11.4 (9.0-12.0) Seconds INR 1.1 (0.9-1.1) APTT 30.2 (21.0-31.0) Seconds PTT Ratio 1.1 Sodium 139 (136-145) mmol/L Potassium 3.6 (3.5-5.1) mmol/L Chloride 103 (98-107) mmol/L Carbon Dioxide 27 (21-32) mmol/L Anion Gap 10.0 (3-11) BUN 16 (7-18) mg/dl Creatinine 1.33 (0.6-1.4) mg/dl Est Cr Clr Drug Dosing Not Reportable Est GFR ( Amer) 61.0 Est GFR (Non-Af Amer) 52.7 BUN/Creatinine Ratio 12.0 (10-20) Glucose 211 H (70-99) mg/dl Lactate 4.9 H* (0.4-2.0) mmol/L Calcium 9.7 (8.5-10.1) mg/dl Magnesium 1.6 L (1.8-2.4) mg/dl Total Bilirubin 0.4 (0.2-1) mg/dl AST 18 (15-37) U/L ALT 39 (12-78) U/L Alkaline Phosphatase 79 (45-117) U/L Troponin I < 0.015 (0-0.045) ng/ml Total Protein 7.7 (6.4-8.2) gm/dl Albumin 3.7 (3.4-5.0) gm/dl Globulin 4.0 (2.5-4.0) gm/dl Albumin/Globulin Ratio 0.9 (0.9-2) COVID-19 Eval Order COVID-19 PCR (Negative) 01/10/20 Range/Units 23:57 WBC (4.8-10.8) K/uL RBC (4.7-6.1) M/uL Hgb (14.0-18.0) g/dL Hct (42-52) % MCV (80-100) fL MCH (25-34) pg MCHC (32-36) g/dL RDW Std Deviation (36.4-46.3) fL RDW Coeff of Araceli (11.5-14.5) % Plt Count (130-400) K/uL MPV (7.4-10.4) fL Immature Gran % (Auto) % Neut % (Auto) % Lymph % (Auto) % [place] % (Auto) % Eos % (Auto) % Baso % (Auto) % Neut # (Auto) (1.4-6.5) K/uL Lymph # (Auto) (1.2-3.4) K/uL [place] # (Auto) (0.11-0.59) K/uL Eos # (Auto) (0-0.5) K/uL Baso # (Auto) (0-0.2) K/uL Immature Gran # (Auto) (0.00-0.02) K/uL PT (9.0-12.0) Seconds INR (0.9-1.1) APTT (21.0-31.0) Seconds PTT Ratio Sodium (136-145) mmol/L Potassium (3.5-5.1) mmol/L Chloride (98-107) mmol/L Carbon Dioxide (21-32) mmol/L Anion Gap (3-11) BUN (7-18) mg/dl Creatinine (0.6-1.4) mg/dl Est Cr Clr Drug Dosing Est GFR ( Amer) Est GFR (Non-Af Amer) BUN/Creatinine Ratio (10-20) Glucose (70-99) mg/dl Lactate 4.1 H* (0.4-2.0) mmol/L Calcium (8.5-10.1) mg/dl Magnesium (1.8-2.4) mg/dl Total Bilirubin (0.2-1) mg/dl AST (15-37) U/L ALT (12-78) U/L Alkaline Phosphatase (45-117) U/L Troponin I (0-0.045) ng/ml Total Protein (6.4-8.2) gm/dl Albumin (3.4-5.0) gm/dl Globulin (2.5-4.0) gm/dl Albumin/Globulin Ratio (0.9-2) COVID-19 Eval Order COVID-19 PCR (Negative) Administered Medications Vancomycin HCl 1,750 mg/ (Sodium Chloride) 535 mls @ 200 mls/hr IV NOW ONE Stop: 01/11/20 01:44 Last Admin: 01/11/20 00:03 Dose: 200 mls/hr Documented by: [id number] Discontinued Medications Acetaminophen (Acetaminophen 500 Mg Tab) 1,000 mg PO NOW STA Stop: 01/10/20 21:53 Last Admin: 01/10/20 22:23 Dose: 1,000 mg Documented by: [id number] Sodium Chloride (Nss 1000ml) 1,000 mls @ 999 mls/hr IV .Q1H1M [id number] Stop: 01/10/20 22:30 Last Infusion: 01/10/20 23:02 Dose: 0 mls/hr Documented by: [id number] Admin: 01/10/20 21:51 Dose: 999 mls/hr Documented by: [id number] Cefepime HCl (Maxipime) 2,000 mg in 20 mls @ 5 mls/min IV NOW STA; Protocol Stop: 01/10/20 21:55 Last Admin: 01/10/20 22:23 Dose: 5 mls/min Documented by: [id number] Sodium Chloride (Nss 1000ml) 1,000 mls @ 999 mls/hr IV .Q1H1M ONE Stop: 01/11/20 00:04 Last Admin: 01/11/20 00:03 Dose: 999 mls/hr Documented by: [id number] Discharge Plan Visit Data Chief Complaint: Fever Stated Complaint: COUGH, FEVER ED Provider: Dwayne Garcia Discharge Problem: Sepsis Forms Stand Alone Forms: [facility] Prescriptions Prescriptions: No Action metformin 500 mg Tablet 500 mg PO BIDM RF: 0 levetiracetam 750 mg Tablet 1,500 mg PO AMHS RF: 0 ezetimibe [Zetia] 10 mg Tablet 10 mg PO QPM RF: 0 lisinopril 20 mg tablet 20 mg PO AMHS RF: 0 acetaminophen [Tylenol] 325 mg Capsule 325 mg PO Q6H PRN (Reason: Pain) RF: 0 amlodipine 5 mg Tablet 5 mg PO QAM RF: 0 Xarelto 20 mg Tablet 20 mg PO DAILY RF: 0
[2020-01-10 21:57] LABS: Basophils # (auto) 0.03 K/uL (0-0.2); Basophils % (auto) 0.2 %; Eosinophils # (auto) 0.14 K/uL (0-0.5); Eosinophils % (auto) 0.9 %; Hematocrit (blood only) 44.5 % (42-52); Hemoglobin 15.1 g/dL (14.0-18.0); Immature Granulocytes # (auto) 0.05 K/uL (0.00-0.02); Immature Granulocytes % (auto) 0.3 %; Lymphocytes # (auto) 1.71 K/uL (1.2-3.4); Lymphocytes % (auto) 11.4 %; Mean Corpuscular Hemoglobin 31.3 pg (25-34); Mean Corpuscular Hgb Conc 33.9 g/dL (32-36); Mean Corpuscular Volume 92.3 fL (80-100); Mean Platelet Volume 10.1 fL (7.4-10.4); Monocytes # (auto) 1.18 K/uL (0.11-0.59); Monocytes % (auto) 7.9 %; Neutrophils # (auto) 11.91 K/uL (1.4-6.5); Neutrophils % (auto) 79.3 %; Platelet Count 321 K/uL (130-400); RDW Coefficient of Variation 13.1 % (11.5-14.5); RDW Standard Deviation 44.5 fL (36.4-46.3); Red Blood Count 4.82 M/uL (4.7-6.1); White Blood Count 15.02 K/uL (4.8-10.8)
[2020-01-10 22:10] LABS: INR 1.1 (0.9-1.1); Partial Thromboplastin Ratio 1.1; Partial Thromboplastin Time 30.2 Seconds (21.0-31.0); Prothrombin Time 11.4 Seconds (9.0-12.0)
[2020-01-10 22:13] LABS: Alanine Aminotransferase 39 U/L (12-78); Albumin Level 3.7 gm/dl (3.4-5.0); Aspartate Aminotransferase 18 U/L (15-37); Blood Urea Nitrogen 16 mg/dl (7-18); Calcium 9.7 mg/dl (8.5-10.1); Carbon Dioxide 27 mmol/L (21-32); Chloride 103 mmol/L (98-107); Est GFR (Non-African American) 52.7; Glucose 211 mg/dl (70-99); Magnesium 1.6 mg/dl (1.8-2.4); Potassium 3.6 mmol/L (3.5-5.1); Sodium 139 mmol/L (136-145)
[2020-01-10 22:18] LABS: Albumin Globulin Ratio 0.9 (0.9-2); Alkaline Phosphatase 79 U/L (45-117); Bilirubin,Total 0.4 mg/dl (0.2-1); Total Protein 7.7 gm/dl (6.4-8.2); Troponin I < 0.015 ng/ml (0-0.045)
[2020-01-10] MEDS ORDERED: VANCOMYCIN HCL 1,750 MG in SODIUM CHLORIDE 0.9% 500 ML IV ONE (23:04)
[2020-01-10] MEDS ORDERED: SODIUM CHLORIDE 0.9% 1000ML 1,000 ML IV ONE (23:04)
[2020-01-10] MEDS ORDERED: VANCOMYCIN CONSULT ACTIVE PRN (23:04)
[2020-01-11] MEDS ORDERED: POTASSIUM CHLORIDE 20 MEQ TABCR PO STA
[2020-01-11] MEDS ORDERED: NORMOSOL-R 1,000 ML IV ONE (00:02)
[2020-01-11] MEDS ORDERED: XOPENEX/ATROVENT 1.25mg/0.5MG NEB COMBO NEB STA (01:10)
--- NOTE | 2020-01-11 01:18 | History & Physical Report ---
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 HTN, slight elevated PVD as per records recurrent PE on Xarelto DM2 on oral meds, well-controlled as of recent outpatient hemoglobin A1c of 6.05 September 2019 Bladder malignancy status post surgery past tobacco abuse Medical telemetry Cultures, Unasyn for now IVF, follow lactic acid Aspiration precautions Swallow eval Basal insulin, ISS BG goal [id number], carb count coverage DVT prophylaxis. Xarelto DNR Text document was generated using [employer] voice recognition software. It may contain grammatical or spelling errors. Kindly contact undersigned for clarification of any documentation item in question. History of Present Illness Chief Complaint: Cough Primary Care Provider: Dr. Grider History obtained from patient, family, and records. Medical history significant for history of CVA, HTN, PVD, recurrent PE on Xarelto, DM2 on oral meds, history of post-CVA seizures, bladder malignancy status post surgery, past tobacco abuse. Last confinement September 2018 under Urology service for bladder malignancy status post surgery. Few days history of junky cough symptoms without chest pain. Shortness of breath and wheezing as per patient. Coughing occasionally with meals and water intake if he is not careful as per patient. Chronic abdominal discomfort with alternating constipation diarrhea. Poor appetite and oral intake. Denies dysuria complaints. At the ER, patient received Vancomycin and cefepime for sepsis. MEDICAL HISTORY: As above. 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 Allergies Allergy/AdvReac Type Severity Reaction Status Date / Time [id number] Reductase AdvReac Severe MUSCLE Verified 01/10/20 23:28 Inhibitor CRAMPS lactose AdvReac Intermediate GI SYMPTOMS Verified 01/10/20 23:28 Home Medications Home Medications Medication Instructions Recorded Confirmed Type ezetimibe [Zetia] 10 mg PO QPM 12/17/17 01/10/20 History levetiracetam 1,500 mg PO AMHS 12/17/17 01/10/20 History metformin 500 mg PO BIDM 12/17/17 01/10/20 History lisinopril 20 mg PO AMHS 09/06/18 01/10/20 History acetaminophen [Tylenol] 325 mg PO Q6H PRN 10/04/18 01/10/20 History amlodipine 5 mg PO QAM 01/10/20 01/10/20 History rivaroxaban [Xarelto] 20 mg PO DAILY 01/10/20 01/10/20 History Past Med/Surg History Medical History (Updated 01/11/20 @ 08:21 by Marcos Oro MD) Bile leak, postoperative After lap carlotta 08/20, had subsequent ERCP with stent placement, stent removed 09/30. Bladder tumor Noted incidentally on CT 09/16/18. Patient to ED on 09/29 with hematuria. DM type 2 (diabetes mellitus, type 2) A1c 6.3 07/2018 History of pulmonary embolism [facility] 09/06. Discharged on Xarelto. History of stroke 5 years ago, residual CANNOT USE LEFT ARM - IN SLING; LEFT LEG WEAK - USES YEN WALKER HTN (hypertension) Left hemiparesis On anticoagulant therapy CURRENTLY ON HOLD FROM E.R. 09/29/18 DUE TO HEMATURIA. PT TO F/U 10/02/18 WITH PCP REGARDING HIS XARELTO. PAD (peripheral artery disease) Seizure disorder 2/2 CVA. On Keppra. Surgical History H/O umbilical hernia repair History of appendectomy History of cholecystectomy Due to gangrenous gallbladder. Complicated by bile leak, had subsequent ERCP with stent placement on 08/21. To [facility] ED 09/16 with sepsis. CARA drain removed, IV ABX. History of colonoscopy History of cystoscopy History of right common carotid artery stent placement S/P ERCP 09/30 for stent removal, [facility]. Family History Mother Diabetes Father Stroke Social History Smoking Status: Former smoker Tobacco Type: Cigarettes Second Hand Exposure: No; Do You Dip or Chew Tobacco: No; Hx Alcohol Use: No Hx Substance Use: No Preferred Language: Nigerien Communication Ability: Effective Senior Microstrategy Developer Required: No Beliefs That Will Affect Care: None marital status: Current Living Situation: Spouse Other Information That Helps Us Care for You: No Feels Safe at Home: Yes Safety Concerns: Feels Safe At This Time Assistive Devices: Denture - Upper and Walker Review of Systems Review of Systems: As per HPI, all 10 systems reviewed, all other ROS negative Physical Exam Physical Exam: GENERAL: Comfortable, pleasant, mild hearing impairment, no respiratory distress SKIN: Normal color, warm HEENT: [place] palpebral conjunctivae, no ptosis, dry buccal mucosa NECK : Supple, no tenderness CHEST : Decreased breath sounds, expiratory wheezes, no tenderness HEART : Tachycardic, no obvious murmurs ABDOMEN: Some distention, nontender EXTREMITIES : No LE swelling/tenderness, no other conspicuous deformities noted NEUROLOGIC : Coherent, no facial asymmetry, chronic left upper extremity paresis Results & Data Results & Data ([facility]) Vital Signs (Past 12 Hours) Vital Signs Temp Pulse Resp BP Pulse Ox 01/11/20 00:24 37.0 C 01/11/20 00:05 103 H 23 134/68 94 01/10/20 23:30 108 H 20 144/74 H 93 01/10/20 23:00 116 H 19 142/76 H 92 01/10/20 22:30 118 H 24 149/68 H 93 01/10/20 22:20 116 H 20 92 01/10/20 22:10 116 H 21 92 01/10/20 22:01 121 H 21 93 01/10/20 22:00 119 H 20 117/66 92 01/10/20 21:51 119 H 15 110/57 L 93 01/10/20 21:50 120 H 19 93 01/10/20 21:43 94 01/10/20 21:40 125 H 16 93 01/10/20 21:30 121 H 24 94 01/10/20 21:22 123 H 23 94 01/10/20 21:05 37.9 C H 132 H 18 164/72 H 92 Laboratory Results Laboratory Results WBC 15.02 K/uL (4.8-10.8) H 01/10/20 21:40 RBC 4.82 M/uL (4.7-6.1) 01/10/20 21:40 Hgb 15.1 g/dL (14.0-18.0) 01/10/20 21:40 Hct 44.5 % (42-52) 01/10/20 21:40 MCV 92.3 fL (80-100) 01/10/20 21:40 MCH 31.3 pg (25-34) 01/10/20 21:40 MCHC 33.9 g/dL (32-36) 01/10/20 21:40 RDW Std Deviation 44.5 fL (36.4-46.3) 01/10/20 21:40 RDW Coeff of Araceli 13.1 % (11.5-14.5) 01/10/20 21:40 Plt Count 321 K/uL (130-400) 01/10/20 21:40 MPV 10.1 fL (7.4-10.4) 01/10/20 21:40 Immature Gran % (Auto) 0.3 % 01/10/20 21:40 Neut % (Auto) 79.3 % 01/10/20 21:40 Lymph % (Auto) 11.4 % 01/10/20 21:40 [place] % (Auto) 7.9 % 01/10/20 21:40 Eos % (Auto) 0.9 % 01/10/20 21:40 Baso % (Auto) 0.2 % 01/10/20 21:40 Neut # (Auto) 11.91 K/uL (1.4-6.5) H 01/10/20 21:40 Lymph # (Auto) 1.71 K/uL (1.2-3.4) 01/10/20 21:40 [place] # (Auto) 1.18 K/uL (0.11-0.59) H 01/10/20 21:40 Eos # (Auto) 0.14 K/uL (0-0.5) 01/10/20 21:40 Baso # (Auto) 0.03 K/uL (0-0.2) 01/10/20 21:40 Immature Gran # (Auto) 0.05 K/uL (0.00-0.02) H 01/10/20 21:40 PT 11.4 Seconds (9.0-12.0) 01/10/20 21:40 INR 1.1 (0.9-1.1) 01/10/20 21:40 APTT 30.2 Seconds (21.0-31.0) 01/10/20 21:40 PTT Ratio 1.1 01/10/20 21:40 Sodium 139 mmol/L (136-145) 01/10/20 21:40 Potassium 3.6 mmol/L (3.5-5.1) 01/10/20 21:40 Chloride 103 mmol/L (98-107) 01/10/20 21:40 Carbon Dioxide 27 mmol/L (21-32) 01/10/20 21:40 Anion Gap 10.0 (3-11) 01/10/20 21:40 BUN 16 mg/dl (7-18) 01/10/20 21:40 Creatinine 1.33 mg/dl (0.6-1.4) 01/10/20 21:40 Est Cr Clr Drug Dosing Not Reportable 01/10/20 21:40 Est GFR ( Amer) 61.0 01/10/20 21:40 Est GFR (Non-Af Amer) 52.7 01/10/20 21:40 BUN/Creatinine Ratio 12.0 (10-20) 01/10/20 21:40 Glucose 211 mg/dl (70-99) H 01/10/20 21:40 Lactate 4.1 mmol/L (0.4-2.0) H* 01/10/20 23:57 Calcium 9.7 mg/dl (8.5-10.1) 01/10/20 21:40 Magnesium 1.6 mg/dl (1.8-2.4) L 01/10/20 21:40 Total Bilirubin 0.4 mg/dl (0.2-1) 01/10/20 21:40 AST 18 U/L (15-37) 01/10/20 21:40 ALT 39 U/L (12-78) 01/10/20 21:40 Alkaline Phosphatase 79 U/L (45-117) 01/10/20 21:40 Troponin I < 0.015 ng/ml (0-0.045) 01/10/20 21:40 Total Protein 7.7 gm/dl (6.4-8.2) 01/10/20 21:40 Albumin 3.7 gm/dl (3.4-5.0) 01/10/20 21:40 Globulin 4.0 gm/dl (2.5-4.0) 01/10/20 21:40 Albumin/Globulin Ratio 0.9 (0.9-2) 01/10/20 21:40 COVID-19 Eval Order Covid19 Done at [facility] 01/10/20 21:35 COVID-19 PCR NEGATIVE (Negative) 01/10/20 21:35 Diagnostic Findings Chest x-ray as per my interpretation atelectasis, possible infiltrate right CT abdomen pelvis initial read: No hydronephrosis. Strandy perinephric changes. No bowel obstruction. Diverticulosis. Ectatic abdominal aorta 2.6 cm. Very heavy calcification right common iliac artery suspicious for severe stenosis EKG as per my interpretation : Rate 120, sinus tachycardia, normal axis, LAE, no ischemia Code Status & VTE Plan VTE Prophylaxis Plan VTE Prophylaxis will be ordered: Yes
[2020-01-11 01:29] LABS: Appearance Urine Clear (Clear); Bacteria Urine Automated Negative (Negative); Bilirubin Urine Negative (Negative); Blood Urine 1+ (Negative); Color Urine Yellow; Glucose Urine UA Negative (Negative); Ketones Urine Negative (Negative); Leukocyte Esterase Urine Negative (Negative); Nitrite Urine Negative (Negative); Protein Urine Negative (Negative); RBC Urine Automated 0-4 /hpf (0-4); Specific Gravity Urine 1.017 (1.000-1.030); Urobilinogen Urine Negative (Negative)
[2020-01-11] MEDS ORDERED: LEVALBUTEROL 1.25MG/0.5ML NEB INH STA (01:36)
[2020-01-11] MEDS ORDERED: IPRATROPIUM BROMIDE NEB SOLN 0.02% 2.5 ML VIAL INH STA (01:36)
[2020-01-11] MEDS ORDERED: AMPICILLIN/SULBACTAM SOD 3,000 MG in 0.9 % SODIUM CHLORIDE 100 ML IV STA (01:54)
[2020-01-11] MEDS ORDERED: oxyCODONE HCL IR 5 MG TAB (IMMEDIATE RELEASE) PO PRN (02:23)
[2020-01-11] MEDS ORDERED: GLUCAGON FOR INJ 1 MG VIAL SQ PRN (02:23)
[2020-01-11] MEDS ORDERED: GLUCOSE 10 TABS/TUBE PO PRN (02:23)
[2020-01-11] MEDS ORDERED: CARBOHYDRATES FOR HYPOGLYCEMIA PO PRN (02:23)
[2020-01-11] MEDS ORDERED: ACETAMINOPHEN 325 MG TAB PO PRN (02:23)
[2020-01-11] MEDS ORDERED: GLUCOSE 40% GEL 15 GM TUBE PO PRN (02:23)
[2020-01-11] MEDS ORDERED: DEXTROSE 50% 50 ML SYRINGE IV PRN (02:23)
[2020-01-11] MEDS ORDERED: LACTATED RINGER'S 1,000 ML IV SCH ×2 (02:23→07:00)
[2020-01-11] MEDS ORDERED: INSULIN GLARGINE SOLOSTAR 100 UNITS/ML 3 ML PEN SC STA (02:23)
[2020-01-11] MEDS ORDERED: NON-FORMULARY MEDICATION (Acetaminophen [Tylenol] 325 MG) PO PRN (02:23)
[2020-01-11] MEDS: MAGNESIUM SULFATE / D5W 1 GM/100 ML BAG IV SCH ×2 (03:20→05:22)
[2020-01-11] MEDS: INSULIN ASPART 100 UNITS/ML 3 ML PEN SC SCH ×5 (03:22→21:39)
[2020-01-11] MEDS ORDERED: AMPICILLIN/SULBACTAM CONSULT ACTIVE PRN (03:50)
[2020-01-11 05:50] LABS: Basophils # (auto) 0.03 K/uL (0-0.2); Basophils % (auto) 0.3 %; Eosinophils # (auto) 0.17 K/uL (0-0.5); Eosinophils % (auto) 1.5 %; Hematocrit (blood only) 38.4 % (42-52); Hemoglobin 12.8 g/dL (14.0-18.0); Immature Granulocytes # (auto) 0.04 K/uL (0.00-0.02); Immature Granulocytes % (auto) 0.3 %; Lymphocytes # (auto) 1.77 K/uL (1.2-3.4); Lymphocytes % (auto) 15.4 %; Mean Corpuscular Hemoglobin 30.8 pg (25-34); Mean Corpuscular Hgb Conc 33.3 g/dL (32-36); Mean Corpuscular Volume 92.3 fL (80-100); Mean Platelet Volume 9.6 fL (7.4-10.4); Monocytes # (auto) 1.32 K/uL (0.11-0.59); Monocytes % (auto) 11.5 %; Neutrophils # (auto) 8.14 K/uL (1.4-6.5); Platelet Count 264 K/uL (130-400); RDW Coefficient of Variation 13.3 % (11.5-14.5); RDW Standard Deviation 44.6 fL (36.4-46.3); Red Blood Count 4.16 M/uL (4.7-6.1); White Blood Count 11.47 K/uL (4.8-10.8)
[2020-01-11 06:21] LABS: BUN Creatinine Ratio 11.9 (10-20); Calcium 8.3 mg/dl (8.5-10.1); Creatinine Clr Calc Pharmacy 75.6 ml/min; Est GFR (African American) 99.2; Est GFR (Non-African American) 85.6; Magnesium 2.1 mg/dl (1.8-2.4); Potassium 3.7 mmol/L (3.5-5.1)
--- NOTE | 2020-01-11 07:34 | CT Scan Report ---
CT SCAN OF THE ABDOMEN AND PELVIS WITHOUT IV CONTRAST CLINICAL HISTORY: Sepsis. Generalized abdominal pain. COMPARISON STUDY: Abdominal CT dated 09/29/2018. TECHNIQUE: CT scan of the abdomen and pelvis is performed from the lung bases to the proximal femora. Images are reviewed in the axial, sagittal, and coronal planes. IV contrast was not administered for this examination as per the referring clinician. Note that the examination is suboptimal without ora l and IV contrast. A dose lowering technique was utilized adhering to the principles of ALARA. The ex amination is compromised by motion artifact. CT DOSE: 711.09 mGy.cm FINDINGS: Lung bases: The heart is normal in size and without pericardial effusion. The coronary arteries are d ensely calcified. A small hiatal hernia is noted. Evaluation of the lung bases is degraded by motion artifact. No airspace consolidation or pleural effusion is identified. Liver: The unenhanced liver is normal in size and contour. The liver demonstrates diffusely diminishe d attenuation consistent with hepatic steatosis. There is no intrahepatic biliary ductal dilatation. Gallbladder: Surgically absent noting clips in the gallbladder fossa. Spleen: Normal in size and attenuation. Pancreas: The unenhanced pancreas is mildly atrophic and grossly unremarkable. Adrenal glands: Unremarkable. Kidneys: The unenhanced kidneys demonstrate mild cortical atrophy and are without hydronephrosis. The re are no renal calculi identified. There is no evidence of contour deforming renal mass lesion. Abdominal vasculature: There is advanced atherosclerotic calcification and ectasia of the abdominal a logan. The distal abdominal aorta measures up to 2.7 cm in diameter. Bowel: There is mild to moderate colonic diverticulosis without CT evidence of acute diverticulitis. No bowel obstruction is seen. The appendix is not identified and reported surgically absent. Peritoneum: There is no intraperitoneal free air or abdominal ascites. Lymphadenopathy: None. Pelvic viscera: The prostate gland is enlarged and heterogeneous noting median lobe hypertrophy. The bladder and seminal vesicles are normal as visualized. There are small bilateral fat-containing ingui nal hernias. Skeletal structures: The skeletal structures are osteopenic. There is moderate lumbosacral spondylosi s as well as mild scoliosis. No lytic or blastic lesions are seen. IMPRESSION: 1. Suboptimal examination without oral and IV contrast. 2. There are no acute infectious or inflammatory findings in the pelvis. 3. Mild to moderate colonic diverticulosis without CT evidence of acute diverticulitis. 4. Hepatic steatosis. 5. Advanced coronary artery calcification. 6. Additional findings as above. ACT 112: Negative or not required by law. Electronically signed by: Caden Flower M.D. 01/11/2020 7:32 AM
--- NOTE | 2020-01-11 08:51 | XRay Report ---
XR chest 1V portable CLINICAL HISTORY: SEPSIS COMPARISON STUDY: Chest radiograph and chest CT September 16, 2018. FINDINGS: Lung volumes are normal. There is mild right infrahilar opacity. There is no pneumothorax o r pleural effusion. Cardiac size is normal. Mediastinal contours are normal. There is no evidence for pulmonary edema. IMPRESSION: Mild right infrahilar opacity. Atelectasis or pulmonary vessels is favored. An infectiou s process could appear similar but is considered less likely. ACT 112: Negative or not required by law. Electronically signed by: Levy Shepherd M.D. 01/11/2020 8:50 AM
[2020-01-11] MEDS ORDERED: levETIRAcetam 500 MG TAB PO SCH (09:00)
[2020-01-11] MEDS ORDERED: AMPICILLIN/SULBACTAM SOD 3,000 MG in 0.9 % SODIUM CHLORIDE 100 ML IV SCH (09:00)
[2020-01-11] MEDS: amLODIPine BESYLATE 5 MG TAB PO SCH (09:34)
[2020-01-11] MEDS: lisinopriL 20 MG TAB PO SCH ×2 (09:34→21:42)
--- NOTE | 2020-01-11 11:18 | Hospitalist Progress Note ---
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 HTN, slight elevated PVD as per records recurrent PE on Xarelto DM2 on oral meds, well-controlled as of recent outpatient hemoglobin A1c of 6.05 September 2019 Bladder malignancy status post surgery past tobacco abuse Medical telemetry Cultures, Unasyn on admission, patient continues to be tachycardic and lactic acid continues to be elevated, will switch to Zosyn and will give more IV fluids IVF, follow lactic acid Aspiration precautions Swallow eval Abdominal pain Seems to have some chronic abdominal pain since his cholecystectomy Patient complains of abdominal tenderness, worsening in the past 2 weeks, and reports worsening umbilical hernia Lactic acid elevated despite IVF and Abx There is a small palpable mass above umbilicus, positive abdominal distention Consult general surgery for possible bowel ischemia, CT abdomen pelvis unremarkable on admission Per general surgery, mass is most likely seroma, no concern for incarcerated hernia history of CVA History post CVA seizures, 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 Xarelto DNR Admission and Anticipated Discharge Date Admission Date: January 11, 2020 Subjective Patient is lying in bed, appears very uncomfortable, says he does not feel well overall. He reports abdominal pain for past 2 weeks, reports that his umbilical hernia is getting worse. Denies chest pain, nausea or vomiting. Also denies any shortness of breath or cough. Review of Systems Review of Systems: All systems reviewed & are unremarkable except as noted in HPI & below Constitutional: + chills and + fatigue Respiratory: no cough and no dyspnea Cardiovascular: no chest pain and no palpitations Gastrointestinal: + abdominal pain (Mostly around umbilical area); no nausea and no vomiting Physical Exam Physical Exam: GENERAL: Elderly male, laying in bed, in no acute distress, however appears uncomfortable, mild hearing impairment HEENT: No cephalic, atraumatic, [place] palpebral conjunctivae, no ptosis, dry buccal mucosa NECK : Supple, no tenderness CHEST : Decreased breath sounds, mild expiratory wheezes, no tenderness HEART : Tachycardic, no obvious murmurs ABDOMEN: +distention, tenderness to palpation at the umbilical area, right above umbilicus there is small soft mass EXTREMITIES : No LE swelling/tenderness SKIN: Normal color, warm NEUROLOGIC : Alert and oriented x3, speech fluent but slow, chronic left upper extremity paresis Results & Data Results & Data ([facility]) Vital Signs (Past 12 Hours) Vital Signs Temp Pulse Pulse Resp BP BP Pulse Ox 01/11/20 07:30 36.7 C 105 H 16 158/80 H 92 01/11/20 04:47 36.6 C 112 H 110 H 18 132/66 92 01/11/20 01:49 104 H 18 94 01/11/20 01:31 105 H 22 162/82 H 92 01/11/20 01:00 106 H 21 143/73 H 94 01/11/20 00:30 102 H 22 135/74 93 01/11/20 00:24 37.0 C 01/11/20 00:05 103 H 23 134/68 94 01/10/20 23:30 108 H 20 144/74 H 93 Laboratory Results 01/11/20 01/11/20 01/11/20 Range/Units 10:18 08:04 05:38 WBC (4.8-10.8) K/uL RBC (4.7-6.1) M/uL Hgb (14.0-18.0) g/dL Hct (42-52) % MCV (80-100) fL MCH (25-34) pg MCHC (32-36) g/dL RDW Std Deviation (36.4-46.3) fL RDW Coeff of Araceli (11.5-14.5) % Plt Count (130-400) K/uL MPV (7.4-10.4) fL Immature Gran % (Auto) % Neut % (Auto) % Lymph % (Auto) % [place] % (Auto) % Eos % (Auto) % Baso % (Auto) % Neut # (Auto) (1.4-6.5) K/uL Lymph # (Auto) (1.2-3.4) K/uL [place] # (Auto) (0.11-0.59) K/uL Eos # (Auto) (0-0.5) K/uL Baso # (Auto) (0-0.2) K/uL Immature Gran # (Auto) (0.00-0.02) K/uL PT (9.0-12.0) Seconds INR (0.9-1.1) APTT (21.0-31.0) Seconds PTT Ratio Sodium (136-145) mmol/L Potassium (3.5-5.1) mmol/L Chloride (98-107) mmol/L Carbon Dioxide (21-32) mmol/L Anion Gap (3-11) BUN (7-18) mg/dl Creatinine (0.6-1.4) mg/dl Est Cr Clr Drug Dosing Est GFR ( Amer) Est GFR (Non-Af Amer) BUN/Creatinine Ratio (10-20) Glucose (70-99) mg/dl POC Glucose 138 H (70-99) mg/dl Lactate 3.6 H* 2.3 H* (0.4-2.0) mmol/L Calcium (8.5-10.1) mg/dl Magnesium (1.8-2.4) mg/dl Total Bilirubin (0.2-1) mg/dl AST (15-37) U/L ALT (12-78) U/L Alkaline Phosphatase (45-117) U/L Troponin I (0-0.045) ng/ml Total Protein (6.4-8.2) gm/dl Albumin (3.4-5.0) gm/dl Globulin (2.5-4.0) gm/dl Albumin/Globulin Ratio (0.9-2) Urine Color Urine Appearance (Clear) Urine pH (4.5-7.5) Ur Specific [place] (1.000-1.030) Urine Protein (Negative) Urine Glucose (UA) (Negative) Urine Ketones (Negative) Urine Blood (Negative) Urine Nitrite (Negative) Urine Bilirubin (Negative) Urine Urobilinogen (Negative) Ur Leukocyte Esterase (Negative) Urine WBC (Auto) (0-5) /hpf Urine RBC (Auto) (0-4) /hpf U Hyaline Cast (Auto) (0-5) /lpf U Epithel Cells (Auto) (0-5) /lpf Urine Bacteria (Auto) (Negative) COVID-19 Eval Order COVID-19 PCR (Negative) 10/02/1901/11/20 01/11/20 Range/Units 05:38 05:38 03:09 WBC 11.47 H (4.8-10.8) K/uL RBC 4.16 L (4.7-6.1) M/uL Hgb 12.8 L (14.0-18.0) g/dL Hct 38.4 L (42-52) % MCV 92.3 (80-100) fL MCH 30.8 (25-34) pg MCHC 33.3 (32-36) g/dL RDW Std Deviation 44.6 (36.4-46.3) fL RDW Coeff of Araceli 13.3 (11.5-14.5) % Plt Count 264 (130-400) K/uL MPV 9.6 (7.4-10.4) fL Immature Gran % (Auto) 0.3 % Neut % (Auto) 71.0 % Lymph % (Auto) 15.4 % [place] % (Auto) 11.5 % Eos % (Auto) 1.5 % Baso % (Auto) 0.3 % Neut # (Auto) 8.14 H (1.4-6.5) K/uL Lymph # (Auto) 1.77 (1.2-3.4) K/uL [place] # (Auto) 1.32 H (0.11-0.59) K/uL Eos # (Auto) 0.17 (0-0.5) K/uL Baso # (Auto) 0.03 (0-0.2) K/uL Immature Gran # (Auto) 0.04 H (0.00-0.02) K/uL PT (9.0-12.0) Seconds INR (0.9-1.1) APTT (21.0-31.0) Seconds PTT Ratio Sodium 143 (136-145) mmol/L Potassium 3.7 (3.5-5.1) mmol/L Chloride 113 H (98-107) mmol/L Carbon Dioxide 26 (21-32) mmol/L Anion Gap 4.0 (3-11) BUN 10 D (7-18) mg/dl Creatinine 0.87 D (0.6-1.4) mg/dl Est Cr Clr Drug Dosing 75.6 Est GFR ( Amer) 99.2 Est GFR (Non-Af Amer) 85.6 BUN/Creatinine Ratio 11.9 (10-20) Glucose 147 H (70-99) mg/dl POC Glucose 182 H (70-99) mg/dl Lactate (0.4-2.0) mmol/L Calcium 8.3 L (8.5-10.1) mg/dl Magnesium 2.1 (1.8-2.4) mg/dl Total Bilirubin (0.2-1) mg/dl AST (15-37) U/L ALT (12-78) U/L Alkaline Phosphatase (45-117) U/L Troponin I (0-0.045) ng/ml Total Protein (6.4-8.2) gm/dl Albumin (3.4-5.0) gm/dl Globulin (2.5-4.0) gm/dl Albumin/Globulin Ratio (0.9-2) Urine Color Urine Appearance (Clear) Urine pH (4.5-7.5) Ur Specific [place] (1.000-1.030) Urine Protein (Negative) Urine Glucose (UA) (Negative) Urine Ketones (Negative) Urine Blood (Negative) Urine Nitrite (Negative) Urine Bilirubin (Negative) Urine Urobilinogen (Negative) Ur Leukocyte Esterase (Negative) Urine WBC (Auto) (0-5) /hpf Urine RBC (Auto) (0-4) /hpf U Hyaline Cast (Auto) (0-5) /lpf U Epithel Cells (Auto) (0-5) /lpf Urine Bacteria (Auto) (Negative) COVID-19 Eval Order COVID-19 PCR (Negative) 01/11/20 01/10/20 01/10/20 Range/Units 00:54 23:57 21:40 WBC (4.8-10.8) K/uL RBC (4.7-6.1) M/uL Hgb (14.0-18.0) g/dL Hct (42-52) % MCV (80-100) fL MCH (25-34) pg MCHC (32-36) g/dL RDW Std Deviation (36.4-46.3) fL RDW Coeff of Araceli (11.5-14.5) % Plt Count (130-400) K/uL MPV (7.4-10.4) fL Immature Gran % (Auto) % Neut % (Auto) % Lymph % (Auto) % [place] % (Auto) % Eos % (Auto) % Baso % (Auto) % Neut # (Auto) (1.4-6.5) K/uL Lymph # (Auto) (1.2-3.4) K/uL [place] # (Auto) (0.11-0.59) K/uL Eos # (Auto) (0-0.5) K/uL Baso # (Auto) (0-0.2) K/uL Immature Gran # (Auto) (0.00-0.02) K/uL PT (9.0-12.0) Seconds INR (0.9-1.1) APTT (21.0-31.0) Seconds PTT Ratio Sodium (136-145) mmol/L Potassium (3.5-5.1) mmol/L Chloride (98-107) mmol/L Carbon Dioxide (21-32) mmol/L Anion Gap (3-11) BUN (7-18) mg/dl Creatinine (0.6-1.4) mg/dl Est Cr Clr Drug Dosing Est GFR ( Amer) Est GFR (Non-Af Amer) BUN/Creatinine Ratio (10-20) Glucose (70-99) mg/dl POC Glucose (70-99) mg/dl Lactate 4.1 H* 4.9 H* (0.4-2.0) mmol/L Calcium (8.5-10.1) mg/dl Magnesium (1.8-2.4) mg/dl Total Bilirubin (0.2-1) mg/dl AST (15-37) U/L ALT (12-78) U/L Alkaline Phosphatase (45-117) U/L Troponin I (0-0.045) ng/ml Total Protein (6.4-8.2) gm/dl Albumin (3.4-5.0) gm/dl Globulin (2.5-4.0) gm/dl Albumin/Globulin Ratio (0.9-2) Urine Color Yellow Urine Appearance Clear (Clear) Urine pH 5.0 (4.5-7.5) Ur Specific [place] 1.017 (1.000-1.030) Urine Protein Negative (Negative) Urine Glucose (UA) Negative (Negative) Urine Ketones Negative (Negative) Urine Blood 1+ H (Negative) Urine Nitrite Negative (Negative) Urine Bilirubin Negative (Negative) Urine Urobilinogen Negative (Negative) Ur Leukocyte Esterase Negative (Negative) Urine WBC (Auto) 1-5 (0-5) /hpf Urine RBC (Auto) 0-4 (0-4) /hpf U Hyaline Cast (Auto) 1-5 (0-5) /lpf U Epithel Cells (Auto) 5-10 H (0-5) /lpf Urine Bacteria (Auto) Negative (Negative) COVID-19 Eval Order COVID-19 PCR (Negative) 01/10/20 01/10/20 01/10/20 Range/Units 21:40 21:40 21:40 WBC 15.02 H (4.8-10.8) K/uL RBC 4.82 (4.7-6.1) M/uL Hgb 15.1 (14.0-18.0) g/dL Hct 44.5 (42-52) % MCV 92.3 (80-100) fL MCH 31.3 (25-34) pg MCHC 33.9 (32-36) g/dL RDW Std Deviation 44.5 (36.4-46.3) fL RDW Coeff of Araceli 13.1 (11.5-14.5) % Plt Count 321 (130-400) K/uL MPV 10.1 (7.4-10.4) fL Immature Gran % (Auto) 0.3 % Neut % (Auto) 79.3 % Lymph % (Auto) 11.4 % [place] % (Auto) 7.9 % Eos % (Auto) 0.9 % Baso % (Auto) 0.2 % Neut # (Auto) 11.91 H (1.4-6.5) K/uL Lymph # (Auto) 1.71 (1.2-3.4) K/uL [place] # (Auto) 1.18 H (0.11-0.59) K/uL Eos # (Auto) 0.14 (0-0.5) K/uL Baso # (Auto) 0.03 (0-0.2) K/uL Immature Gran # (Auto) 0.05 H (0.00-0.02) K/uL PT 11.4 (9.0-12.0) Seconds INR 1.1 (0.9-1.1) APTT 30.2 (21.0-31.0) Seconds PTT Ratio 1.1 Sodium 139 (136-145) mmol/L Potassium 3.6 (3.5-5.1) mmol/L Chloride 103 (98-107) mmol/L Carbon Dioxide 27 (21-32) mmol/L Anion Gap 10.0 (3-11) BUN 16 (7-18) mg/dl Creatinine 1.33 (0.6-1.4) mg/dl Est Cr Clr Drug Dosing Not Reportable Est GFR ( Amer) 61.0 Est GFR (Non-Af Amer) 52.7 BUN/Creatinine Ratio 12.0 (10-20) Glucose 211 H (70-99) mg/dl POC Glucose (70-99) mg/dl Lactate (0.4-2.0) mmol/L Calcium 9.7 (8.5-10.1) mg/dl Magnesium 1.6 L (1.8-2.4) mg/dl Total Bilirubin 0.4 (0.2-1) mg/dl AST 18 (15-37) U/L ALT 39 (12-78) U/L Alkaline Phosphatase 79 (45-117) U/L Troponin I < 0.015 (0-0.045) ng/ml Total Protein 7.7 (6.4-8.2) gm/dl Albumin 3.7 (3.4-5.0) gm/dl Globulin 4.0 (2.5-4.0) gm/dl Albumin/Globulin Ratio 0.9 (0.9-2) Urine Color Urine Appearance (Clear) Urine pH (4.5-7.5) Ur Specific [place] (1.000-1.030) Urine Protein (Negative) Urine Glucose (UA) (Negative) Urine Ketones (Negative) Urine Blood (Negative) Urine Nitrite (Negative) Urine Bilirubin (Negative) Urine Urobilinogen (Negative) Ur Leukocyte Esterase (Negative) Urine WBC (Auto) (0-5) /hpf Urine RBC (Auto) (0-4) /hpf U Hyaline Cast (Auto) (0-5) /lpf U Epithel Cells (Auto) (0-5) /lpf Urine Bacteria (Auto) (Negative) COVID-19 Eval Order COVID-19 PCR (Negative) 01/10/20 01/10/20 Range/Units 21:35 21:35 WBC (4.8-10.8) K/uL RBC (4.7-6.1) M/uL Hgb (14.0-18.0) g/dL Hct (42-52) % MCV (80-100) fL MCH (25-34) pg MCHC (32-36) g/dL RDW Std Deviation (36.4-46.3) fL RDW Coeff of Araceli (11.5-14.5) % Plt Count (130-400) K/uL MPV (7.4-10.4) fL Immature Gran % (Auto) % Neut % (Auto) % Lymph % (Auto) % [place] % (Auto) % Eos % (Auto) % Baso % (Auto) % Neut # (Auto) (1.4-6.5) K/uL Lymph # (Auto) (1.2-3.4) K/uL [place] # (Auto) (0.11-0.59) K/uL Eos # (Auto) (0-0.5) K/uL Baso # (Auto) (0-0.2) K/uL Immature Gran # (Auto) (0.00-0.02) K/uL PT (9.0-12.0) Seconds INR (0.9-1.1) APTT (21.0-31.0) Seconds PTT Ratio Sodium (136-145) mmol/L Potassium (3.5-5.1) mmol/L Chloride (98-107) mmol/L Carbon Dioxide (21-32) mmol/L Anion Gap (3-11) BUN (7-18) mg/dl Creatinine (0.6-1.4) mg/dl Est Cr Clr Drug Dosing Est GFR ( Amer) Est GFR (Non-Af Amer) BUN/Creatinine Ratio (10-20) Glucose (70-99) mg/dl POC Glucose (70-99) mg/dl Lactate (0.4-2.0) mmol/L Calcium (8.5-10.1) mg/dl Magnesium (1.8-2.4) mg/dl Total Bilirubin (0.2-1) mg/dl AST (15-37) U/L ALT (12-78) U/L Alkaline Phosphatase (45-117) U/L Troponin I (0-0.045) ng/ml Total Protein (6.4-8.2) gm/dl Albumin (3.4-5.0) gm/dl Globulin (2.5-4.0) gm/dl Albumin/Globulin Ratio (0.9-2) Urine Color Urine Appearance (Clear) Urine pH (4.5-7.5) Ur Specific [place] (1.000-1.030) Urine Protein (Negative) Urine Glucose (UA) (Negative) Urine Ketones (Negative) Urine Blood (Negative) Urine Nitrite (Negative) Urine Bilirubin (Negative) Urine Urobilinogen (Negative) Ur Leukocyte Esterase (Negative) Urine WBC (Auto) (0-5) /hpf Urine RBC (Auto) (0-4) /hpf U Hyaline Cast (Auto) (0-5) /lpf U Epithel Cells (Auto) (0-5) /lpf Urine Bacteria (Auto) (Negative) COVID-19 Eval Order Covid19 Done at [facility] COVID-19 PCR NEGATIVE (Negative) Medications Administered Current Inpatient Medications Acetaminophen (Acetaminophen 325 Mg Tab) 650 mg PO Q4H PRN PRN Reason: Pain or Fever Stop: 02/10/20 02:22 Amlodipine Besylate (Amlodipine Besylate 5 Mg Tab) 5 mg PO QAM [facility] Stop: 02/10/20 08:59 Last Admin: 01/11/20 09:34 Dose: 5 mg Documented by: Dextrose (Dextrose 50% 50 Ml Syringe) 25 - 50 ml IV UD PRN; Protocol PRN Reason: Hypoglycemia Protocol Stop: 02/10/20 02:22 Ezetimibe (Ezetimibe 10 Mg Tablet) 10 mg PO QPM [facility] Stop: 02/10/20 20:59 Glucagon (Glucagon For Inj 1 Mg Vial) 1 mg SQ UD PRN; Protocol PRN Reason: Hypoglycemia Protocol Stop: 02/10/20 02:22 Glucose (Glucose 10 Tabs/Tube) 4 - 8 tabs PO UD PRN; Protocol PRN Reason: Hypoglycemia Protocol Stop: 02/10/20 02:22 Glucose (Glucose 40% Gel 15 Gm Tube) 15 - 30 gm PO UD PRN; Protocol PRN Reason: Hypoglycemia Protocol Stop: 02/10/20 02:22 Ampicillin Sodium/Sulbactam Sodium 3,000 mg/ Sodium Chloride 108 mls @ 216 mls/hr IV Q6H [facility]; Protocol Stop: 01/18/20 08:59 Last Admin: 01/11/20 09:36 Dose: 216 mls/hr Documented by: Lactated Ringer's (Lr) 1,000 mls @ 200 mls/hr IV .Q5H [facility] Stop: 01/11/20 11:59 Last Admin: 01/11/20 08:37 Dose: 200 mls/hr Documented by: Insulin Aspart (Insulin Aspart 100 Units/Ml 3 Ml Pen) 0 units SC ACHS [facility] Stop: 02/10/20 02:22 Last Admin: 01/11/20 09:42 Dose: Not Given Documented by: Insulin Glargine (Insulin Glargine Solostar 100 Units/Ml 3 Ml Pen) 5 units SC DAILY [facility] Stop: 02/11/20 08:59 Levetiracetam (Levetiracetam 500 Mg Tab) 1,500 mg PO BID [facility] Stop: 02/10/20 08:59 Last Admin: 01/11/20 09:33 Dose: 1,500 mg Documented by: Lisinopril (Lisinopril 20 Mg Tab) 20 mg PO BID [facility] Stop: 02/10/20 08:59 Last Admin: 01/11/20 09:34 Dose: 20 mg Documented by: Miscellaneous (Carbohydrates For Hypoglycemia ) 15 - 30 gm PO UD PRN PRN Reason: Hypoglycemia Protocol Stop: 02/10/20 02:22 Miscellaneous Information (Ampicillin/Sulbactam Consult Active) 1 ea N/A UD PRN PRN Reason: Consult Stop: 02/10/20 03:49 Oxycodone HCl (Oxycodone Hcl Ir 5 Mg Tab (Immediate Release)) 5 mg PO Q4H PRN PRN Reason: Pain Stop: 01/25/20 02:22 Rivaroxaban (Rivaroxaban 20 Mg Tab) 20 mg PO QDD [facility] Stop: 02/10/20 16:29
[2020-01-11] MEDS ORDERED: SODIUM CHLORIDE 0.9% 1000ML 500 ML IV ONE (11:20)
[2020-01-11] MEDS ORDERED: PIPERACILL/TAZOBAC CONSULT ACTIVE PRN (11:22)
[2020-01-11] MEDS ORDERED: PIPERACILLIN/TAZOBACTAM 3.375 GM in DEXTROSE 5% 100 ML IV ONE (12:00)
--- NOTE | 2020-01-11 12:22 | Electrocardiogram Report ---
Test Reason : Blood Pressure : / mmHG Vent. Rate : 121 BPM Atrial Rate : 121 BPM P-R Int : 150 ms QRS Dur : 066 ms QT Int : 306 ms P-R-T Axes : 069 062 084 degrees QTc Int : 434 ms Poor data quality, interpretation may be adversely affected Sinus tachycardia Possible Left atrial enlargement Nonspecific ST abnormality Abnormal ECG When compared with ECG of 16-SEP-2018 13:19, Questionable change in QRS axis Confirmed by Kole Gill ([id number]) on 01/11/2020 12:22:29 PM Referred By: REFERRED SELF Confirmed By:Kole Gill
--- NOTE | 2020-01-11 14:39 | Surgery Consultation ---
Date of Consultation January 11, 2020 Assessment & Plan (1) Severe sepsis: Believed to be secondary to aspiration pneumonia. Currently, no sign of pathology in his abdomen on CT scan. Clinical exam shows mild tenderness of unclear etiology in lower abdomen. Lactate is elevated but no worrisome features of ischemia seen clinically or on imaging. Present on Admission?: Yes (2) Abdominal pain: mainly lower abdominal, ongoing since gallbladder removal. Unclear etiology Present on Admission?: Yes History of Present Illness Reason for Consultation: abdominal pain Requesting Physician: Familia Ashraf MD Attending Physician: Familia Ashraf MD History of Present Illness 74 yr old man admitted with aspiration pneumonia. Asked to see because of p ersistent complaints of abdominal pain. Pt tells me this pain has been ongoing since his gallbladder removal in summer 2018. This was complicated by a bile leak and need for ercp. Notes that the pain is 5/10, always present, in bilateral lower quadrants, no associated vomiting but he constantly feels nauseated. Not worse with eating or activity. Told Dr. Ashraf that he was noticing more pain at his umbilical hernia site (however, does not appear to have a hernia on exam). Last bowel movement was today. Allergies Allergy/AdvReac Type Severity Reaction Status Date / Time Feoixeq-Lvj-Xhj Reductase AdvReac Severe MUSCLE Verified 01/10/20 23:28 Inhibitor CRAMPS lactose AdvReac Intermediate GI SYMPTOMS Verified 01/10/20 23:28 Home Medications Home Medications Medication Instructions Recorded Confirmed Type ezetimibe [Zetia] 10 mg PO QPM 12/17/17 01/10/20 History levetiracetam 1,500 mg PO AMHS 12/17/17 01/10/20 History metformin 500 mg PO BIDM 12/17/17 01/10/20 History lisinopril 20 mg PO AMHS 09/06/18 01/10/20 History acetaminophen [Tylenol] 325 mg PO Q6H PRN 10/04/18 01/10/20 History amlodipine 5 mg PO QAM 01/10/20 01/10/20 History rivaroxaban [Xarelto] 20 mg PO DAILY 01/10/20 01/10/20 History Patient History Medical History Bile leak, postoperative After lap carlotta 08/20, had subsequent ERCP with stent placement, stent removed 09/30. Bladder tumor Noted incidentally on CT 09/16/18. Patient to ED on 09/29 with hematuria. DM type 2 (diabetes mellitus, type 2) A1c 6.3 07/2018 History of pulmonary embolism [facility] [place] 09/06. Discharged on Xarelto. History of stroke 5 years ago, residual CANNOT USE LEFT ARM - IN SLING; LEFT LEG WEAK - USES YEN WALKER HTN (hypertension) Left hemiparesis On anticoagulant therapy CURRENTLY ON HOLD FROM E.R. 09/29/18 DUE TO HEMATURIA. PT TO F/U 10/02/18 WITH PCP REGARDING HIS XARELTO. PAD (peripheral artery disease) Seizure disorder 2/2 CVA. On Keppra. Surgical History H/O umbilical hernia repair History of appendectomy History of cholecystectomy Due to gangrenous gallbladder. Complicated by bile leak, had subsequent ERCP with stent placement on 08/21. To [facility] [place] ED 09/16 with sepsis. CARA drain removed, IV ABX. History of colonoscopy History of cystoscopy History of right common carotid artery stent placement S/P ERCP 09/30 for stent removal, [facility] [place]. Family History Mother Diabetes Father Stroke Social History Smoking Status: Former smoker Tobacco Type: Cigarettes Second Hand Exposure: No; Do You Dip or Chew Tobacco: No; Hx Alcohol Use: No Hx Substance Use: No Preferred Language: [place]an Communication Ability: Effective College Specialist Required: No Beliefs That Will Affect Care: None marital status: Current Living Situation: Spouse Other Information That Helps Us Care for You: No Feels Safe at Home: Yes Safety Concerns: Feels Safe At This Time Assistive Devices: Denture - Upper and Walker Review of Systems Review of Systems: All systems reviewed & are unremarkable except as noted in HPI & below Physical Exam Constitutional: WD/WN, vitals as above Eyes: + anicteric sclerae Neck: normal visual inspection Respiratory: normal respiratory effort, lungs clear to auscultation Cardiovascular: RRR, no murmur, no edema Gastrointestinal (Abdomen): Inspection/Auscultation: normal bowel sounds Percussion/Palpation: + abdomen tender (mild, in lower quadrants) and abdomen soft; no guarding small 1 cm rubbery mass located about 1 cm above umbilicus, nonreducible, nontender, ?postop changes vs small hernia Results & Data ([facility]) Vital Signs (Past 12 Hours) Vital Signs Temp Pulse Pulse Resp BP Pulse Ox 01/11/20 12:00 37.2 C 109 H 18 163/89 H 91 01/11/20 07:30 36.7 C 105 H 16 158/80 H 92 01/11/20 04:47 36.6 C 112 H 110 H 18 132/66 92 Laboratory Results Abnormal lab results 01/10/20 01/10/20 01/10/20 Range/Units 21:40 21:40 21:40 WBC 15.02 H (4.8-10.8) K/uL RBC (4.7-6.1) M/uL Hgb (14.0-18.0) g/dL Hct (42-52) % Neut # (Auto) 11.91 H (1.4-6.5) K/uL [place] # (Auto) 1.18 H (0.11-0.59) K/uL Immature Gran # (Auto) 0.05 H (0.00-0.02) K/uL Chloride (98-107) mmol/L Glucose 211 H (70-99) mg/dl POC Glucose (70-99) mg/dl Lactate 4.9 H* (0.4-2.0) mmol/L Calcium (8.5-10.1) mg/dl Magnesium 1.6 L (1.8-2.4) mg/dl Urine Blood (Negative) U Epithel Cells (Auto) (0-5) /lpf 01/10/20 01/11/20 01/11/20 Range/Units 23:57 00:54 03:09 WBC (4.8-10.8) K/uL RBC (4.7-6.1) M/uL Hgb (14.0-18.0) g/dL Hct (42-52) % Neut # (Auto) (1.4-6.5) K/uL [place] # (Auto) (0.11-0.59) K/uL Immature Gran # (Auto) (0.00-0.02) K/uL Chloride (98-107) mmol/L Glucose (70-99) mg/dl POC Glucose 182 H (70-99) mg/dl Lactate 4.1 H* (0.4-2.0) mmol/L Calcium (8.5-10.1) mg/dl Magnesium (1.8-2.4) mg/dl Urine Blood 1+ H (Negative) U Epithel Cells (Auto) 5-10 H (0-5) /lpf 01/11/20 01/11/20 01/11/20 Range/Units 05:38 05:38 05:38 WBC 11.47 H (4.8-10.8) K/uL RBC 4.16 L (4.7-6.1) M/uL Hgb 12.8 L (14.0-18.0) g/dL Hct 38.4 L (42-52) % Neut # (Auto) 8.14 H (1.4-6.5) K/uL [place] # (Auto) 1.32 H (0.11-0.59) K/uL Immature Gran # (Auto) 0.04 H (0.00-0.02) K/uL Chloride 113 H (98-107) mmol/L Glucose 147 H (70-99) mg/dl POC Glucose (70-99) mg/dl Lactate 2.3 H* (0.4-2.0) mmol/L Calcium 8.3 L (8.5-10.1) mg/dl Magnesium (1.8-2.4) mg/dl Urine Blood (Negative) U Epithel Cells (Auto) (0-5) /lpf 01/11/20 01/11/20 01/11/20 Range/Units 08:04 10:18 11:31 WBC (4.8-10.8) K/uL RBC (4.7-6.1) M/uL Hgb (14.0-18.0) g/dL Hct (42-52) % Neut # (Auto) (1.4-6.5) K/uL [place] # (Auto) (0.11-0.59) K/uL Immature Gran # (Auto) (0.00-0.02) K/uL Chloride (98-107) mmol/L Glucose (70-99) mg/dl POC Glucose 138 H 132 H (70-99) mg/dl Lactate 3.6 H* (0.4-2.0) mmol/L Calcium (8.5-10.1) mg/dl Magnesium (1.8-2.4) mg/dl Urine Blood (Negative) U Epithel Cells (Auto) (0-5) /lpf Diagnostic Findings CT scan abd/ pelvis: FINDINGS: Lung bases: The heart is normal in size and without pericardial effusion. The coronary arteries are densely calcified. A small hiatal hernia is noted. Evaluation of the lung bases is degraded by motion artifact. No airspace consolidation or pleural effusion is identified. Liver: The unenhanced liver is normal in size and contour. The liver demonstrates diffusely diminished attenuation consistent with hepatic steatosis. There is no intrahepatic biliary ductal dilatation. Gallbladder: Surgically absent noting clips in the gallbladder fossa. Spleen: Normal in size and attenuation. Pancreas: The unenhanced pancreas is mildly atrophic and grossly unremarkable. Adrenal glands: Unremarkable. Kidneys: The unenhanced kidneys demonstrate mild cortical atrophy and are without hydronephrosis. There are no renal calculi identified. There is no evidence of contour deforming renal mass lesion. Abdominal vasculature: There is advanced atherosclerotic calcification and ectasia of the abdominal aorta. The distal abdominal aorta measures up to 2.7 cm in diameter. Bowel: There is mild to moderate colonic diverticulosis without CT evidence of acute diverticulitis. No bowel obstruction is seen. The appendix is not identified and reported surgically absent. Peritoneum: There is no intraperitoneal free air or abdominal ascites. Lymphadenopathy: None. Pelvic viscera: The prostate gland is enlarged and heterogeneous noting median lobe hypertrophy. The bladder and seminal vesicles are normal as visualized. There are small bilateral fat-containing inguinal hernias. Skeletal structures: The skeletal structures are osteopenic. There is moderate lumbosacral spondylosis as well as mild scoliosis. No lytic or blastic lesions are seen. IMPRESSION: 1. Suboptimal examination without oral and IV contrast. 2. There are no acute infectious or inflammatory findings in the pelvis. 3. Mild to moderate colonic diverticulosis without CT evidence of acute diverticulitis. 4. Hepatic steatosis. 5. Advanced coronary artery calcification. 6. Additional findings as above. (1) Abdominal pain Abdominal location: left lower quadrant Qualified Code(s): R10.32 - Left lower quadrant pain
[2020-01-11] MEDS: RIVAROXABAN 20 MG TAB PO SCH (17:10)
[2020-01-11] MEDS: PIPERACILLIN/TAZOBACTAM 3.375 GM in DEXTROSE 5% 100 ML IV SCH (18:14)
[2020-01-11] MEDS ORDERED: LACTATED RINGER'S 1,000 ML IV ONE (20:43)
[2020-01-11] MEDS ORDERED: cloNIDine HCL 0.1 MG TAB PO ONE (20:43)
[2020-01-11] MEDS ORDERED: MoRPHine SULFATE 2 MG/ML CARP IV PRN (20:47)
[2020-01-11] MEDS: EZETIMIBE 10 MG TABLET PO SCH (21:42)
[2020-01-11] MEDS: levETIRAcetam ORAL SOLN 100MG/ML PO SCH (21:42)
[2020-01-12] MEDS: PIPERACILLIN/TAZOBACTAM 3.375 GM in DEXTROSE 5% 100 ML IV SCH ×3 (02:13→17:37)
[2020-01-12 08:07] LABS: Basophils # (auto) 0.06 K/uL (0-0.2); Basophils % (auto) 0.6 %; Eosinophils # (auto) 0.33 K/uL (0-0.5); Eosinophils % (auto) 3.4 %; Hematocrit (blood only) 38.9 % (42-52); Hemoglobin 13.1 g/dL (14.0-18.0); Immature Granulocytes # (auto) 0.02 K/uL (0.00-0.02); Immature Granulocytes % (auto) 0.2 %; Lymphocytes # (auto) 1.95 K/uL (1.2-3.4); Lymphocytes % (auto) 20.2 %; Mean Corpuscular Hemoglobin 30.9 pg (25-34); Mean Corpuscular Hgb Conc 33.7 g/dL (32-36); Mean Corpuscular Volume 91.7 fL (80-100); Mean Platelet Volume 9.6 fL (7.4-10.4); Monocytes # (auto) 1.05 K/uL (0.11-0.59); Monocytes % (auto) 10.9 %; Neutrophils # (auto) 6.26 K/uL (1.4-6.5); Neutrophils % (auto) 64.7 %; Platelet Count 239 K/uL (130-400); RDW Coefficient of Variation 13.5 % (11.5-14.5); RDW Standard Deviation 44.7 fL (36.4-46.3); Red Blood Count 4.24 M/uL (4.7-6.1); White Blood Count 9.67 K/uL (4.8-10.8)
[2020-01-12] MEDS: lisinopriL 20 MG TAB PO SCH ×2 (08:21→20:39)
[2020-01-12] MEDS: amLODIPine BESYLATE 5 MG TAB PO SCH (08:22)
[2020-01-12] MEDS: levETIRAcetam ORAL SOLN 100MG/ML PO SCH ×2 (08:22→20:39)
[2020-01-12] MEDS: INSULIN GLARGINE SOLOSTAR 100 UNITS/ML 3 ML PEN SC SCH (08:25)
[2020-01-12] MEDS: INSULIN ASPART 100 UNITS/ML 3 ML PEN SC SCH ×4 (08:25→20:51)
[2020-01-12 08:34] LABS: BUN Creatinine Ratio 9.7 (10-20); Calcium 8.7 mg/dl (8.5-10.1); Creatinine Clr Calc Pharmacy 67.8 ml/min; Est GFR (African American) 89.4; Est GFR (Non-African American) 77.1; Potassium 3.7 mmol/L (3.5-5.1)
--- NOTE | 2020-01-12 11:36 | Hospitalist Progress Note ---
Date of Service January 12, 2020 Assessment & Plan (1) Severe sepsis: SIRS plus lactic acid elevation Likely secondary aspiration pneumonia Medical telemetry Cultures, Unasyn on admission, patient continued to be tachycardic and lactic acid continued to be elevated, switched to Zosyn and gave more IV fluids IVF, follow lactic acid- lactic acid normalized Tachycardia resolved Mucinex, incentive spirometer Aspiration precautions Swallow eval Abdominal pain Seems to have some chronic abdominal pain since his cholecystectomy Patient complains of abdominal tenderness, worsening in the past 2 weeks, and reports worsening umbilical hernia Lactic acid elevated despite IVF and Abx There is a small palpable mass above umbilicus, positive abdominal distention Consult general surgery for possible bowel ischemia, CT abdomen pelvis unremarkable on admission Per general surgery, mass is most likely seroma, no concern for incarcerated hernia Lactic acid now normalized and pt denies any significant abd. discomfort history of CVA History post CVA seizures, stable on Keppra HTN, slight elevated PVD as per records recurrent PE on Xarelto DM2 on oral meds, well-controlled as of recent outpatient hemoglobin A1c of 6.05 September 2019 , Basal insulin, ISS BG goal [id number], carb count coverage Bladder malignancy status post surgery past tobacco abuse DVT prophylaxis. Xarelto DNR Admission and Anticipated Discharge Date Admission Date: January 11, 2020 Subjective Pt feels better today. Has occasional cough. No nausea, vomiting. Abd. pain does not bother him today. No palpitations, chest pain, occasional chills. Pt does not feel short of breath. Review of Systems Review of Systems: As per HPI, all 10 systems reviewed, all other ROS negative Constitutional: + chills and + fatigue Gastrointestinal: + abdominal pain (Mostly around umbilical area, now improved); no nausea and no vomiting Physical Exam Physical Exam: GENERAL: Elderly male, laying in bed, in no acute distress HEENT: NC/AT, [place] palpebral conjunctivae, no ptosis, dry buccal mucosa NECK : Supple, no tenderness CHEST : Decreased breath sounds, mild expiratory wheezes, +rhonchi, no ten derness HEART : rrr, no obvious murmurs ABDOMEN: +distention, mild tenderness to palpation at the umbilical area (improved), right above umbilicus there is small soft mass EXTREMITIES : No LE swelling/tenderness SKIN: Normal color, warm NEUROLOGIC : Alert and oriented x3, speech fluent but slow, chronic left upper extremity paresis Results & Data Results & Data ([facility]) Vital Signs (Past 12 Hours) Vital Signs Temp Pulse Pulse Resp BP Pulse Ox 01/12/20 04:00 36.9 C 88 18 123/77 93 01/12/20 01:56 80 Laboratory Results 01/12/20 01/12/20 01/12/20 Range/Units 07:59 07:59 07:59 WBC 9.67 (4.8-10.8) K/uL RBC 4.24 L (4.7-6.1) M/uL Hgb 13.1 L (14.0-18.0) g/dL Hct 38.9 L (42-52) % MCV 91.7 (80-100) fL MCH 30.9 (25-34) pg MCHC 33.7 (32-36) g/dL RDW Std Deviation 44.7 (36.4-46.3) fL RDW Coeff of Araceli 13.5 (11.5-14.5) % Plt Count 239 (130-400) K/uL MPV 9.6 (7.4-10.4) fL Immature Gran % (Auto) 0.2 % Neut % (Auto) 64.7 % Lymph % (Auto) 20.2 % [place] % (Auto) 10.9 % Eos % (Auto) 3.4 % Baso % (Auto) 0.6 % Neut # (Auto) 6.26 (1.4-6.5) K/uL Lymph # (Auto) 1.95 (1.2-3.4) K/uL [place] # (Auto) 1.05 H (0.11-0.59) K/uL Eos # (Auto) 0.33 (0-0.5) K/uL Baso # (Auto) 0.06 (0-0.2) K/uL Immature Gran # (Auto) 0.02 (0.00-0.02) K/uL Sodium 141 (136-145) mmol/L Potassium 3.7 (3.5-5.1) mmol/L Chloride 106 (98-107) mmol/L Carbon Dioxide 28 (21-32) mmol/L Anion Gap 6.0 (3-11) BUN 9 (7-18) mg/dl Creatinine 0.97 (0.6-1.4) mg/dl Est Cr Clr Drug Dosing 67.8 ml/min Est GFR ( Amer) 89.4 Est GFR (Non-Af Amer) 77.1 BUN/Creatinine Ratio 9.7 L (10-20) Glucose 138 H (70-99) mg/dl POC Glucose (70-99) mg/dl Lactate 1.7 (0.4-2.0) mmol/L Calcium 8.7 (8.5-10.1) mg/dl 01/12/20 01/11/20 01/11/20 Range/Units 07:51 20:54 20:53 WBC (4.8-10.8) K/uL RBC (4.7-6.1) M/uL Hgb (14.0-18.0) g/dL Hct (42-52) % MCV (80-100) fL MCH (25-34) pg MCHC (32-36) g/dL RDW Std Deviation (36.4-46.3) fL RDW Coeff of Araceli (11.5-14.5) % Plt Count (130-400) K/uL MPV (7.4-10.4) fL Immature Gran % (Auto) % Neut % (Auto) % Lymph % (Auto) % [place] % (Auto) % Eos % (Auto) % Baso % (Auto) % Neut # (Auto) (1.4-6.5) K/uL Lymph # (Auto) (1.2-3.4) K/uL [place] # (Auto) (0.11-0.59) K/uL Eos # (Auto) (0-0.5) K/uL Baso # (Auto) (0-0.2) K/uL Immature Gran # (Auto) (0.00-0.02) K/uL Sodium (136-145) mmol/L Potassium (3.5-5.1) mmol/L Chloride (98-107) mmol/L Carbon Dioxide (21-32) mmol/L Anion Gap (3-11) BUN (7-18) mg/dl Creatinine (0.6-1.4) mg/dl Est Cr Clr Drug Dosing ml/min Est GFR ( Amer) Est GFR (Non-Af Amer) BUN/Creatinine Ratio (10-20) Glucose (70-99) mg/dl POC Glucose 157 H 148 H (70-99) mg/dl Lactate 2.2 H* (0.4-2.0) mmol/L Calcium (8.5-10.1) mg/dl 01/11/20 01/11/20 Range/Units 16:46 14:46 WBC (4.8-10.8) K/uL RBC (4.7-6.1) M/uL Hgb (14.0-18.0) g/dL Hct (42-52) % MCV (80-100) fL MCH (25-34) pg MCHC (32-36) g/dL RDW Std Deviation (36.4-46.3) fL RDW Coeff of Araceli (11.5-14.5) % Plt Count (130-400) K/uL MPV (7.4-10.4) fL Immature Gran % (Auto) % Neut % (Auto) % Lymph % (Auto) % [place] % (Auto) % Eos % (Auto) % Baso % (Auto) % Neut # (Auto) (1.4-6.5) K/uL Lymph # (Auto) (1.2-3.4) K/uL [place] # (Auto) (0.11-0.59) K/uL Eos # (Auto) (0-0.5) K/uL Baso # (Auto) (0-0.2) K/uL Immature Gran # (Auto) (0.00-0.02) K/uL Sodium (136-145) mmol/L Potassium (3.5-5.1) mmol/L Chloride (98-107) mmol/L Carbon Dioxide (21-32) mmol/L Anion Gap (3-11) BUN (7-18) mg/dl Creatinine (0.6-1.4) mg/dl Est Cr Clr Drug Dosing ml/min Est GFR ( Amer) Est GFR (Non-Af Amer) BUN/Creatinine Ratio (10-20) Glucose (70-99) mg/dl POC Glucose 120 H (70-99) mg/dl Lactate 2.2 H* (0.4-2.0) mmol/L Calcium (8.5-10.1) mg/dl Medications Administered Current Inpatient Medications Acetaminophen (Acetaminophen 325 Mg Tab) 650 mg PO Q4H PRN PRN Reason: Pain or Fever Stop: 02/10/20 02:22 Last Admin: 01/11/20 19:47 Dose: 650 mg Documented by: Amlodipine Besylate (Amlodipine Besylate 5 Mg Tab) 5 mg PO QAM ABHIJIT Stop: 02/10/20 08:59 Last Admin: 01/12/20 08:22 Dose: 5 mg Documented by: Dextrose (Dextrose 50% 50 Ml Syringe) 25 - 50 ml IV UD PRN; Protocol PRN Reason: Hypoglycemia Protocol Stop: 02/10/20 02:22 Ezetimibe (Ezetimibe 10 Mg Tablet) 10 mg PO QPM ABHIJIT Stop: 02/10/20 20:59 Last Admin: 01/11/20 21:42 Dose: 10 mg Documented by: Glucagon (Glucagon For Inj 1 Mg Vial) 1 mg SQ UD PRN; Protocol PRN Reason: Hypoglycemia Protocol Stop: 02/10/20 02:22 Glucose (Glucose 10 Tabs/Tube) 4 - 8 tabs PO UD PRN; Protocol PRN Reason: Hypoglycemia Protocol Stop: 02/10/20 02:22 Glucose (Glucose 40% Gel 15 Gm Tube) 15 - 30 gm PO UD PRN; Protocol PRN Reason: Hypoglycemia Protocol Stop: 02/10/20 02:22 Piperacillin Sod/Tazobactam (Sod 3.375 gm/ Dextrose) 115 mls @ 28.75 mls/hr IV Q8H ABHIJIT; Protocol Stop: 01/18/20 17:59 Last Admin: 01/12/20 10:49 Dose: 28.8 mls/hr Documented by: Insulin Aspart (Insulin Aspart 100 Units/Ml 3 Ml Pen) 0 units SC ACHS ABHIJIT Stop: 02/10/20 02:22 Last Admin: 01/12/20 08:25 Dose: 3 units Documented by: Insulin Glargine (Insulin Glargine Solostar 100 Units/Ml 3 Ml Pen) 5 units SC DAILY ABHIJIT Stop: 02/11/20 08:59 Last Admin: 01/12/20 08:25 Dose: 5 units Documented by: Levetiracetam (Levetiracetam Oral Soln 100mg/Ml) 1,500 mg PO Q12H ABHIJIT Stop: 02/10/20 20:59 Last Admin: 01/12/20 08:22 Dose: 1,500 mg Documented by: Lisinopril (Lisinopril 20 Mg Tab) 20 mg PO BID ABHIJIT Stop: 02/10/20 08:59 Last Admin: 01/12/20 08:21 Dose: 20 mg Documented by: Miscellaneous (Carbohydrates For Hypoglycemia ) 15 - 30 gm PO UD PRN PRN Reason: Hypoglycemia Protocol Stop: 02/10/20 02:22 Miscellaneous Information (Piperacill/Tazobac Consult Active) 1 ea N/A UD PRN PRN Reason: Consult Stop: 02/10/20 11:21 Morphine Sulfate (Morphine Sulfate 2 Mg/Ml [place]) 2 mg IV Q3H PRN PRN Reason: Pain Stop: 01/25/20 20:46 Oxycodone HCl (Oxycodone Hcl Ir 5 Mg Tab (Immediate Release)) 5 mg PO Q4H PRN PRN Reason: Pain Stop: 01/25/20 02:22 Rivaroxaban (Rivaroxaban 20 Mg Tab) 20 mg PO QDD ABHIJIT Stop: 02/10/20 16:29 Last Admin: 01/11/20 17:10 Dose: 20 mg Documented by:
[2020-01-12 12:30] LABS: Magnesium 2.1 mg/dl (1.8-2.4); Phosphorus 2.8 mg/dl (2.5-4.9)
--- NOTE | 2020-01-12 14:25 | Surgery Progress Note ---
Date of Service January 12, 2020 Assessment & Plan (1) Severe sepsis: Etiology remains unclear CT did not show intra-abdominal source Abdomen is benign at present White blood cell count is now normal Vital signs are stable Has been afebrile Admission and Anticipated Discharge Date Admission Date: January 11, 2020 Subjective Has mild lower abdominal discomfort but it is improved over yesterday Denies nausea and vomiting Tolerated diet Physical Exam Gastrointestinal (Abdomen): Inspection/Auscultation: + abdomen distended (Mild to moderate) Percussion/Palpation: + abdomen tender (Minimal lower abdominal tenderness) and abdomen soft Results & Data ([facility]) Vital Signs (Past 12 Hours) Vital Signs Temp Pulse Pulse Resp BP Pulse Ox 01/12/20 12:32 87 01/12/20 11:43 36.6 C 85 18 121/70 90 01/12/20 04:00 36.9 C 88 18 123/77 93 Laboratory Results 01/12/20 01/12/20 01/12/20 Range/Units 12:08 07:59 07:59 WBC (4.8-10.8) K/uL RBC (4.7-6.1) M/uL Hgb (14.0-18.0) g/dL Hct (42-52) % MCV (80-100) fL MCH (25-34) pg MCHC (32-36) g/dL RDW Std Deviation (36.4-46.3) fL RDW Coeff of Araceli (11.5-14.5) % Plt Count (130-400) K/uL MPV (7.4-10.4) fL Immature Gran % (Auto) % Neut % (Auto) % Lymph % (Auto) % [place] % (Auto) % Eos % (Auto) % Baso % (Auto) % Neut # (Auto) (1.4-6.5) K/uL Lymph # (Auto) (1.2-3.4) K/uL [place] # (Auto) (0.11-0.59) K/uL Eos # (Auto) (0-0.5) K/uL Baso # (Auto) (0-0.2) K/uL Immature Gran # (Auto) (0.00-0.02) K/uL Sodium (136-145) mmol/L Potassium (3.5-5.1) mmol/L Chloride (98-107) mmol/L Carbon Dioxide (21-32) mmol/L Anion Gap (3-11) BUN (7-18) mg/dl Creatinine (0.6-1.4) mg/dl Est Cr Clr Drug Dosing ml/min Est GFR ( Amer) Est GFR (Non-Af Amer) BUN/Creatinine Ratio (10-20) Glucose (70-99) mg/dl POC Glucose 215 H (70-99) mg/dl Lactate 1.7 (0.4-2.0) mmol/L Calcium (8.5-10.1) mg/dl Phosphorus 2.8 (2.5-4.9) mg/dl Magnesium 2.1 (1.8-2.4) mg/dl 01/12/20 01/12/20 01/12/20 Range/Units 07:59 07:59 07:51 WBC 9.67 (4.8-10.8) K/uL RBC 4.24 L (4.7-6.1) M/uL Hgb 13.1 L (14.0-18.0) g/dL Hct 38.9 L (42-52) % MCV 91.7 (80-100) fL MCH 30.9 (25-34) pg MCHC 33.7 (32-36) g/dL RDW Std Deviation 44.7 (36.4-46.3) fL RDW Coeff of Araceli 13.5 (11.5-14.5) % Plt Count 239 (130-400) K/uL MPV 9.6 (7.4-10.4) fL Immature Gran % (Auto) 0.2 % Neut % (Auto) 64.7 % Lymph % (Auto) 20.2 % [place] % (Auto) 10.9 % Eos % (Auto) 3.4 % Baso % (Auto) 0.6 % Neut # (Auto) 6.26 (1.4-6.5) K/uL Lymph # (Auto) 1.95 (1.2-3.4) K/uL [place] # (Auto) 1.05 H (0.11-0.59) K/uL Eos # (Auto) 0.33 (0-0.5) K/uL Baso # (Auto) 0.06 (0-0.2) K/uL Immature Gran # (Auto) 0.02 (0.00-0.02) K/uL Sodium 141 (136-145) mmol/L Potassium 3.7 (3.5-5.1) mmol/L Chloride 106 (98-107) mmol/L Carbon Dioxide 28 (21-32) mmol/L Anion Gap 6.0 (3-11) BUN 9 (7-18) mg/dl Creatinine 0.97 (0.6-1.4) mg/dl Est Cr Clr Drug Dosing 67.8 ml/min Est GFR ( Amer) 89.4 Est GFR (Non-Af Amer) 77.1 BUN/Creatinine Ratio 9.7 L (10-20) Glucose 138 H (70-99) mg/dl POC Glucose 157 H (70-99) mg/dl Lactate (0.4-2.0) mmol/L Calcium 8.7 (8.5-10.1) mg/dl Phosphorus (2.5-4.9) mg/dl Magnesium (1.8-2.4) mg/dl 01/11/20 01/11/20 01/11/20 Range/Units 20:54 20:53 16:46 WBC (4.8-10.8) K/uL RBC (4.7-6.1) M/uL Hgb (14.0-18.0) g/dL Hct (42-52) % MCV (80-100) fL MCH (25-34) pg MCHC (32-36) g/dL RDW Std Deviation (36.4-46.3) fL RDW Coeff of Araceli (11.5-14.5) % Plt Count (130-400) K/uL MPV (7.4-10.4) fL Immature Gran % (Auto) % Neut % (Auto) % Lymph % (Auto) % [place] % (Auto) % Eos % (Auto) % Baso % (Auto) % Neut # (Auto) (1.4-6.5) K/uL Lymph # (Auto) (1.2-3.4) K/uL [place] # (Auto) (0.11-0.59) K/uL Eos # (Auto) (0-0.5) K/uL Baso # (Auto) (0-0.2) K/uL Immature Gran # (Auto) (0.00-0.02) K/uL Sodium (136-145) mmol/L Potassium (3.5-5.1) mmol/L Chloride (98-107) mmol/L Carbon Dioxide (21-32) mmol/L Anion Gap (3-11) BUN (7-18) mg/dl Creatinine (0.6-1.4) mg/dl Est Cr Clr Drug Dosing ml/min Est GFR ( Amer) Est GFR (Non-Af Amer) BUN/Creatinine Ratio (10-20) Glucose (70-99) mg/dl POC Glucose 148 H 120 H (70-99) mg/dl Lactate 2.2 H* (0.4-2.0) mmol/L Calcium (8.5-10.1) mg/dl Phosphorus (2.5-4.9) mg/dl Magnesium (1.8-2.4) mg/dl 01/11/20 Range/Units 14:46 WBC (4.8-10.8) K/uL RBC (4.7-6.1) M/uL Hgb (14.0-18.0) g/dL Hct (42-52) % MCV (80-100) fL MCH (25-34) pg MCHC (32-36) g/dL RDW Std Deviation (36.4-46.3) fL RDW Coeff of Araceli (11.5-14.5) % Plt Count (130-400) K/uL MPV (7.4-10.4) fL Immature Gran % (Auto) % Neut % (Auto) % Lymph % (Auto) % [place] % (Auto) % Eos % (Auto) % Baso % (Auto) % Neut # (Auto) (1.4-6.5) K/uL Lymph # (Auto) (1.2-3.4) K/uL [place] # (Auto) (0.11-0.59) K/uL Eos # (Auto) (0-0.5) K/uL Baso # (Auto) (0-0.2) K/uL Immature Gran # (Auto) (0.00-0.02) K/uL Sodium (136-145) mmol/L Potassium (3.5-5.1) mmol/L Chloride (98-107) mmol/L Carbon Dioxide (21-32) mmol/L Anion Gap (3-11) BUN (7-18) mg/dl Creatinine (0.6-1.4) mg/dl Est Cr Clr Drug Dosing ml/min Est GFR ( Amer) Est GFR (Non-Af Amer) BUN/Creatinine Ratio (10-20) Glucose (70-99) mg/dl POC Glucose (70-99) mg/dl Lactate 2.2 H* (0.4-2.0) mmol/L Calcium (8.5-10.1) mg/dl Phosphorus (2.5-4.9) mg/dl Magnesium (1.8-2.4) mg/dl
[2020-01-12] MEDS: RIVAROXABAN 20 MG TAB PO SCH (17:37)
[2020-01-12] MEDS: EZETIMIBE 10 MG TABLET PO SCH (20:39)
[2020-01-13] MEDS: PIPERACILLIN/TAZOBACTAM 3.375 GM in DEXTROSE 5% 100 ML IV SCH ×3 (02:01→17:39)
[2020-01-13] MEDS: lisinopriL 20 MG TAB PO SCH ×2 (08:17→21:10)
[2020-01-13] MEDS: levETIRAcetam ORAL SOLN 100MG/ML PO SCH ×2 (08:17→21:10)
[2020-01-13] MEDS: INSULIN ASPART 100 UNITS/ML 3 ML PEN SC SCH ×4 (08:18→21:00)
[2020-01-13] MEDS: amLODIPine BESYLATE 5 MG TAB PO SCH (08:18)
[2020-01-13] MEDS: INSULIN GLARGINE SOLOSTAR 100 UNITS/ML 3 ML PEN SC SCH (08:18)
[2020-01-13 09:00] LABS: Hematocrit (blood only) 43.2 % (42-52); Hemoglobin 14.5 g/dL (14.0-18.0); Mean Corpuscular Hgb Conc 33.6 g/dL (32-36); Mean Corpuscular Volume 92.5 fL (80-100); Mean Platelet Volume 10.1 fL (7.4-10.4); Platelet Count 261 K/uL (130-400); RDW Coefficient of Variation 13.3 % (11.5-14.5); RDW Standard Deviation 44.6 fL (36.4-46.3); Red Blood Count 4.67 M/uL (4.7-6.1); White Blood Count 10.11 K/uL (4.8-10.8)
[2020-01-13 09:40] LABS: BUN Creatinine Ratio 8.8 (10-20); Calcium 9.3 mg/dl (8.5-10.1); Creatinine Clr Calc Pharmacy 67.1 ml/min; Est GFR (African American) 88.3; Est GFR (Non-African American) 76.2; Magnesium 2.1 mg/dl (1.8-2.4); Phosphorus 2.6 mg/dl (2.5-4.9); Potassium 3.5 mmol/L (3.5-5.1)
--- NOTE | 2020-01-13 14:43 | Surgery Progress Note ---
Date of Service pt is doing better, no abdominal pain, he tolerated diet, no nausea, no vomiting, no fever, normal WBC. January 13, 2020 Assessment & Plan (1) Severe sepsis: Etiology remains unclear CT did not show intra-abdominal source Abdomen is benign at present White blood cell count is now normal Vital signs are stable Has been afebrile 01/13/2020 2:42PM doing better, no abdominal pain, tolerated diet, sign off today, please call with questions, thanks, Admission and Anticipated Discharge Date Admission Date: January 11, 2020 Subjective Has mild lower abdominal discomfort but it is improved over yesterday Denies nausea and vomiting Tolerated diet Physical Exam Constitutional: WD/WN, vitals as above Eyes: PERRL, conjunctivae normal, anicteric sclerae ENMT: external ear and nose normal, oropharynx normal Neck: trachea midline, no thyromegaly Respiratory: normal respiratory effort, lungs clear to auscultation Gastrointestinal (Abdomen): normal bowel sounds, soft, nontender, no hepatosplenomegaly Results & Data ([facility]) Vital Signs (Past 12 Hours) Vital Signs Temp Pulse Pulse Resp BP Pulse Ox 01/13/20 12:39 36.5 C 87 17 120/67 93 01/13/20 09:46 79 01/13/20 07:41 36.8 C 82 18 139/74 90 01/13/20 03:31 36.7 C 84 18 125/66 91 Laboratory Results Abnormal lab results 01/12/20 01/12/20 01/13/20 Range/Units 16:45 20:36 07:28 RBC (4.7-6.1) M/uL BUN/Creatinine Ratio (-) Glucose (70-99) mg/dl POC Glucose 116 H 134 H 131 H (70-99) mg/dl 01/13/20 01/13/20 01/13/20 Range/Units 08:33 08:33 11:58 RBC 4.67 L (4.7-6.1) M/uL BUN/Creatinine Ratio 8.8 L (01-19) Glucose 176 H (70-99) mg/dl POC Glucose 238 H (70-99) mg/dl
[2020-01-13] MEDS: RIVAROXABAN 20 MG TAB PO SCH (16:56)
[2020-01-13] MEDS: POTASSIUM CHLORIDE 20 MEQ/15 ML UDC PO SCH (17:45)
[2020-01-13] MEDS: EZETIMIBE 10 MG TABLET PO SCH (21:10)
[2020-01-13] MEDS: guaiFENesin 600 MG TABCR PO SCH (21:10)
[2020-01-14] MEDS: PIPERACILLIN/TAZOBACTAM 3.375 GM in DEXTROSE 5% 100 ML IV SCH ×2 (01:57→09:34)
[2020-01-14 07:14] LABS: Creatinine Clr Calc Pharmacy 67.8 ml/min; Est GFR (African American) 89.4; Est GFR (Non-African American) 77.1
[2020-01-14] MEDS: guaiFENesin 600 MG TABCR PO SCH ×2 (08:28→20:57)
[2020-01-14] MEDS: levETIRAcetam ORAL SOLN 100MG/ML PO SCH ×2 (08:29→20:58)
[2020-01-14] MEDS: INSULIN GLARGINE SOLOSTAR 100 UNITS/ML 3 ML PEN SC SCH (08:29)
[2020-01-14] MEDS: lisinopriL 20 MG TAB PO SCH ×2 (08:29→20:58)
[2020-01-14] MEDS: amLODIPine BESYLATE 5 MG TAB PO SCH (08:29)
[2020-01-14] MEDS: POTASSIUM CHLORIDE 20 MEQ/15 ML UDC PO SCH (08:29)
[2020-01-14] MEDS: INSULIN ASPART 100 UNITS/ML 3 ML PEN SC SCH ×4 (08:30→21:03)
--- NOTE | 2020-01-14 11:57 | Hospitalist Progress Note ---
Date of Service January 13, 2020 Assessment & Plan (1) Severe sepsis: SIRS plus lactic acid elevation Likely secondary to aspiration pneumonia Medical telemetry Cultures, Unasyn on admission, patient continued to be tachycardic and lactic acid continued to be elevated, switched to Zosyn and gave more IV fluids IVF, follow lactic acid- lactic acid normalized Tachycardia resolved Mucinex, incentive spirometer Aspiration precautions Swallow eval - diet advanced to easy to chew Abdominal pain Seems to have some chronic abdominal pain since his cholecystectomy Patient complains of abdominal tenderness, worsening in the past 2 weeks, and reports worsening umbilical hernia Lactic acid elevated despite IVF and Abx There is a small palpable mass above umbilicus, positive abdominal distention Consult general surgery for possible bowel ischemia, CT abdomen pelvis unremarkable on admission Per general surgery, mass is most likely seroma, no concern for incarcerated hernia Lactic acid now normalized and pt denies any significant abd. discomfort history of CVA History post CVA seizures, stable on Keppra HTN, slight elevated PVD as per records recurrent PE on Xarelto DM2 on oral meds, well-controlled as of recent outpatient hemoglobin A1c of 6.05 September 2019 , Basal insulin, ISS BG goal [id number], carb count coverage Bladder malignancy status post surgery past tobacco abuse DVT prophylaxis. Xarelto DNR Admission and Anticipated Discharge Date Admission Date: January 11, 2020 Subjective Pt feels better today. Has occasional cough. Currently denies any fever, chills, chest pain, palpitations. Pt does not feel short of breath. Also denies any abdominal discomfort. Review of Systems Review of Systems: All systems reviewed & are unremarkable except as noted in HPI & below Constitutional: no fever and no chills Respiratory: no cough and no dyspnea Cardiovascular: no chest pain and no palpitations Gastrointestinal: no abdominal pain, no nausea and no vomiting Physical Exam Physical Exam: GENERAL: Elderly male, laying in bed, in no acute distress HEENT: NC/AT, [place] palpebral conjunctivae, no ptosis, dry buccal mucosa NECK : Supple, no tenderness CHEST : Decreased breath sounds, mild expiratory wheezes, +rhonchi, no tenderness HEART : rrr, no obvious murmurs ABDOMEN: +distention, mild tenderness to palpation at the umbilical area (improved), right above umbilicus there is small soft mass EXTREMITIES : No LE swelling/tenderness SKIN: Normal color, warm NEUROLOGIC : Alert and oriented x3, speech fluent but slow, chronic left upper extremity paresis Results & Data Results & Data ([facility]) Vital Signs (Past 12 Hours)
[2020-01-14] MEDS: AMOXICILLIN/CLAVULANATE 875 MG TAB PO SCH (17:14)
[2020-01-14] MEDS: RIVAROXABAN 20 MG TAB PO SCH (17:14)
--- NOTE | 2020-01-14 18:49 | Hospitalist Progress Note ---
Date of Service January 14, 2020 Assessment & Plan (1) Severe sepsis: SIRS plus lactic acid elevation Likely secondary to aspiration pneumonia Blood and urine cultures have been negative, Has been on Unasyn since admission Unasyn on admission, patient continued to be tachycardic and lactic acid continued to be elevated, switched to Zosyn and gave more IV fluids Mucinex, incentive spirometer Aspiration precautions Swallow eval - diet advanced to easy to chew IV antibiotic has been changed to oral Augmentin Abdominal pain Seems to have some chronic abdominal pain since his cholecystectomy Patient complains of abdominal tenderness, worsening in the past 2 weeks, and reports worsening umbilical hernia There is a small palpable mass above umbilicus, positive abdominal distention Consult general surgery for possible bowel ischemia, CT abdomen pelvis unremark able on admission Per general surgery, mass is most likely seroma, no concern for incarcerated hernia Appreciate surgery input and recommendation history of CVA History post CVA seizures, 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 Xarelto DNR Possible discharge tomorrow Admission and Anticipated Discharge Date Admission Date: January 11, 2020 Subjective 01/14/2020 The patient was seen and examined in medical telemetry unit He has been feeling a lot better denies any significant symptoms He is almost ready to go home Review of Systems Review of Systems: Extremity reviewed and are unremarkable except as noted below Respiratory: no cough, no chest congestion and no dyspnea Cardiovascular: no chest pain and no palpitations Musculoskeletal: No acute arthritis involving any joint Physical Exam Physical Exam: Lying in bed comfortably Constitutional: well developed, well nourished, + ill appearing and + obese; no acute distress Eyes: PERRL, conjunctivae normal, anicteric sclerae ENMT: external ear and nose normal, oropharynx normal Neck: trachea midline, no thyromegaly Respiratory: normal respiratory effort; no respiratory distress Auscultation: + diminished lung sounds and + crackles Cardiovascular: Rate/Rhythm: regular rate and regular rhythm Heart Sounds: no murmur Extremities: + edema (Trace edema bilaterally) Gastrointestinal (Abdomen): Inspection/Auscultation: abdomen normal to inspection and normal bowel sounds; abdomen not distended Percussion/Palpation: abdomen soft Musculoskeletal: No acute arthritis involving any joints Neurologic: moves all extremities; no focal motor deficits Psychiatric: A+Ox3, euthymic affect Lymphatic: no cervical or axillary lymphadenopathy Results & Data Results & Data ([facility]) Vital Signs (Past 12 Hours) Vital Signs Temp Pulse Pulse Resp BP BP Pulse Ox 01/14/20 18:01 88 01/14/20 15:09 36.7 C 89 19 136/67 92 01/14/20 11:30 37.0 C 84 18 133/62 92 01/14/20 07:15 36.9 C 80 18 157/79 H 91 01/14/20 07:00 79 [place] [facility] [place]14[place] 05:42 Creatinine 0.97 Medications Administered Current Inpatient Medications Acetaminophen (Acetaminophen 325 Mg Tab) 650 mg PO Q4H PRN PRN Reason: Pain or Fever Stop: 02/10/20 02:22 Last Admin: 01/11/20 19:47 Dose: 650 mg Documented by: Amlodipine Besylate (Amlodipine Besylate 5 Mg Tab) 5 mg PO QAM [facility] Stop: 02/10/20 08:59 Last Admin: 01/14/20 08:29 Dose: 5 mg Documented by: Amoxicillin/Clavulanate Potassium (Amoxicillin/Clavulanate 875 Mg Tab) 1 tab PO BIDM [facility] Stop: 01/21/20 16:59 Last Admin: 01/14/20 17:14 Dose: 1 tab Documented by: Dextrose (Dextrose 50% 50 Ml Syringe) 25 - 50 ml IV UD PRN; Protocol PRN Reason: Hypoglycemia Protocol Stop: 02/10/20 02:22 Ezetimibe (Ezetimibe 10 Mg Tablet) 10 mg PO QPM [facility] Stop: 02/10/20 20:59 Last Admin: 01/13/20 21:10 Dose: 10 mg Documented by: Glucagon (Glucagon For Inj 1 Mg Vial) 1 mg SQ UD PRN; Protocol PRN Reason: Hypoglycemia Protocol Stop: 02/10/20 02:22 Glucose (Glucose 10 Tabs/Tube) 4 - 8 tabs PO UD PRN; Protocol PRN Reason: Hypoglycemia Protocol Stop: 02/10/20 02:22 Glucose (Glucose 40% Gel 15 Gm Tube) 15 - 30 gm PO UD PRN; Protocol PRN Reason: Hypoglycemia Protocol Stop: 02/10/20 02:22 Guaifenesin (Guaifenesin 600 Mg Tabcr) 600 mg PO Q12 [facility] Stop: 02/12/20 20:59 Last Admin: 01/14/20 08:28 Dose: 600 mg Documented by: Insulin Aspart (Insulin Aspart 100 Units/Ml 3 Ml Pen) 0 units SC ACHS [facility] Stop: 02/10/20 02:22 Last Admin: 01/14/20 17:13 Dose: 4 units Documented by: Insulin Glargine (Insulin Glargine Solostar 100 Units/Ml 3 Ml Pen) 5 units SC DAILY [facility] Stop: 02/11/20 08:59 Last Admin: 01/14/20 08:29 Dose: 5 units Documented by: Levetiracetam (Levetiracetam Oral Soln 100mg/Ml) 1,500 mg PO Q12H [facility] Stop: 02/10/20 20:59 Last Admin: 01/14/20 08:29 Dose: 1,500 mg Documented by: Lisinopril (Lisinopril 20 Mg Tab) 20 mg PO BID [facility] Stop: 02/10/20 08:59 Last Admin: 01/14/20 08:29 Dose: 20 mg Documented by: Miscellaneous (Carbohydrates For Hypoglycemia ) 15 - 30 gm PO UD PRN PRN Reason: Hypoglycemia Protocol Stop: 02/10/20 02:22 Morphine Sulfate (Morphine Sulfate 2 Mg/Ml Carp) 2 mg IV Q3H PRN PRN Reason: Pain Stop: 01/25/20 20:46 Oxycodone HCl (Oxycodone Hcl Ir 5 Mg Tab (Immediate Release)) 5 mg PO Q4H PRN PRN Reason: Pain Stop: 01/25/20 02:22 Potassium Chloride (Potassium Chloride 20 Meq/15 Ml Udc) 20 meq PO QAM [facility] Stop: 02/12/20 16:59 Last Admin: 01/14/20 08:29 Dose: 20 meq Documented by: Rivaroxaban (Rivaroxaban 20 Mg Tab) 20 mg PO QDD [facility] Stop: 02/10/20 16:29 Last Admin: 01/14/20 17:14 Dose: 20 mg Documented by:
[2020-01-14] MEDS: EZETIMIBE 10 MG TABLET PO SCH (20:58)
[2020-01-15] MEDS ORDERED: bisacodyL 10 MG SUPP PR STA (07:29)
[2020-01-15] MEDS: guaiFENesin 600 MG TABCR PO SCH (08:37)
[2020-01-15] MEDS: amLODIPine BESYLATE 5 MG TAB PO SCH (08:37)
[2020-01-15] MEDS: AMOXICILLIN/CLAVULANATE 875 MG TAB PO SCH (08:37)
[2020-01-15] MEDS: levETIRAcetam ORAL SOLN 100MG/ML PO SCH (08:37)
[2020-01-15] MEDS: INSULIN GLARGINE SOLOSTAR 100 UNITS/ML 3 ML PEN SC SCH (08:38)
[2020-01-15] MEDS: POTASSIUM CHLORIDE 20 MEQ/15 ML UDC PO SCH (08:38)
[2020-01-15] MEDS: lisinopriL 20 MG TAB PO SCH (08:39)
[2020-01-15] MEDS: INSULIN ASPART 100 UNITS/ML 3 ML PEN SC SCH ×2 (08:40→12:11)
--- NOTE | 2020-01-15 13:01 | Hospitalist Progress Note ---
Date of Service January 15, 2020 Assessment & Plan (1) Severe sepsis: SIRS plus lactic acid elevation Likely secondary to aspiration pneumonia Blood and urine cultures have been negative, Has been on Unasyn since admission Unasyn on admission, patient continued to be tachycardic and lactic acid continued to be elevated, switched to Zosyn and gave more IV fluids Mucinex, incentive spirometer Aspiration precautions Swallow eval - diet advanced to easy to chew IV antibiotic has been changed to oral Augmentin Remains asymptomatic Will be discharged home this afternoon Abdominal pain Seems to have some chronic abdominal pain since his cholecystectomy Patient complains of abdominal tenderness, worsening in the past 2 weeks, and reports worsening umbilical hernia There is a small palpable mass above umbilicus, positive abdominal distention Consult general surgery for possible bowel ischemia, CT abdomen pelvis unremarkable on admission Per general surgery, mass is most likely seroma, no concern for incarcerated hernia Appreciate surgery input and recommendation Denies any mid abdominal pain History of CVA History post CVA seizures, 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 Xarelto DNR Received PT and OT evaluation-recommended return home Discussed with the patient in detailed He was advised to use the walker and take extreme precautions to avoid any falls He is agreeable with the recommendation Will be discharged this afternoon Admission and Anticipated Discharge Date Admission Date: January 11, 2020 Subjective 01/14/2020 The patient was seen and examined in medical telemetry unit He has been feeling a lot better denies any significant symptoms He is almost ready to go home 01/15/2020 The patient was seen and examined in medical telemetry unit He remained stable and denies any symptoms except some weakness Has not had any bowel movement for the last 3 days without any symptoms He was given suppository and Fleet enema for bowel movement He wants to go home and will be sent home this afternoon Review of Systems Review of Systems: Extremity reviewed and are unremarkable except as noted below Musculoskeletal: No acute arthritis involving any joint Physical Exam Physical Exam: Lying in bed comfortably Constitutional: well developed, well nourished and + obese; no acute distress and not ill appearing Eyes: PERRL, conjunctivae normal, anicteric sclerae ENMT: external ear and nose normal, oropharynx normal Neck: trachea midline, no thyromegaly Respiratory: normal respiratory effort; no respiratory distress Auscultation: + diminished lung sounds and + crackles Cardiovascular: Rate/Rhythm: regular rate and regular rhythm Heart Sounds: no murmur Extremities: + edema (Trace edema bilaterally) Gastrointestinal (Abdomen): Inspection/Auscultation: abdomen normal to inspection and normal bowel sounds; abdomen not distended Percussion/Palpation: abdomen soft Musculoskeletal: Denies any acute arthritis involving any joint Neurologic: moves all extremities; no focal motor deficits Psychiatric: A+Ox3, euthymic affect Lymphatic: no cervical or axillary lymphadenopathy Results & Data Results & Data ([facility]) Vital Signs (Past 12 Hours) Vital Signs Temp Pulse Pulse Resp BP BP Pulse Ox 01/15/20 11:08 36.7 C 92 H 20 156/68 H 92 01/15/20 07:30 36.6 C 79 19 172/79 H 93 01/15/20 07:00 78 01/15/20 04:50 36.7 C 75 18 164/83 H 92 Medications Administered Current Inpatient Medications Acetaminophen (Acetaminophen 325 Mg Tab) 650 mg PO Q4H PRN PRN Reason: Pain or Fever Stop: 02/10/20 02:22 Last Admin: 01/11/20 19:47 Dose: 650 mg Documented by: Amlodipine Besylate (Amlodipine Besylate 5 Mg Tab) 5 mg PO QAM [facility] Stop: 02/10/20 08:59 Last Admin: 01/15/20 08:37 Dose: 5 mg Documented by: Amoxicillin/Clavulanate Potassium (Amoxicillin/Clavulanate 875 Mg Tab) 1 tab PO BIDM [facility] Stop: 01/21/20 16:59 Last Admin: 01/15/20 08:37 Dose: 1 tab Documented by: Dextrose (Dextrose 50% 50 Ml Syringe) 25 - 50 ml IV UD PRN; Protocol PRN Reason: Hypoglycemia Protocol Stop: 02/10/20 02:22 Ezetimibe (Ezetimibe 10 Mg Tablet) 10 mg PO QPM [facility] Stop: 02/10/20 20:59 Last Admin: 01/14/20 20:58 Dose: 10 mg Documented by: Glucagon (Glucagon For Inj 1 Mg Vial) 1 mg SQ UD PRN; Protocol PRN Reason: Hypoglycemia Protocol Stop: 02/10/20 02:22 Glucose (Glucose 10 Tabs/Tube) 4 - 8 tabs PO UD PRN; Protocol PRN Reason: Hypoglycemia Protocol Stop: 02/10/20 02:22 Glucose (Glucose 40% Gel 15 Gm Tube) 15 - 30 gm PO UD PRN; Protocol PRN Reason: Hypoglycemia Protocol Stop: 02/10/20 02:22 Guaifenesin (Guaifenesin 600 Mg Tabcr) 600 mg PO Q12 [facility] Stop: 02/12/20 20:59 Last Admin: 01/15/20 08:37 Dose: 600 mg Documented by: Insulin Aspart (Insulin Aspart 100 Units/Ml 3 Ml Pen) 0 units SC ACHS [facility] Stop: 02/10/20 02:22 Last Admin: 01/15/20 12:11 Dose: 2 units Documented by: Insulin Glargine (Insulin Glargine Solostar 100 Units/Ml 3 Ml Pen) 5 units SC DAILY [facility] Stop: 02/11/20 08:59 Last Admin: 01/15/20 08:38 Dose: 5 units Documented by: Levetiracetam (Levetiracetam Oral Soln 100mg/Ml) 1,500 mg PO Q12H [facility] Stop: 02/10/20 20:59 Last Admin: 01/15/20 08:37 Dose: 1,500 mg Documented by: Lisinopril (Lisinopril 20 Mg Tab) 20 mg PO BID [facility] Stop: 02/10/20 08:59 Last Admin: 01/15/20 08:39 Dose: 20 mg Documented by: Miscellaneous (Carbohydrates For Hypoglycemia ) 15 - 30 gm PO UD PRN PRN Reason: Hypoglycemia Protocol Stop: 02/10/20 02:22 Morphine Sulfate (Morphine Sulfate 2 Mg/Ml Carp) 2 mg IV Q3H PRN PRN Reason: Pain Stop: 01/25/20 20:46 Oxycodone HCl (Oxycodone Hcl Ir 5 Mg Tab (Immediate Release)) 5 mg PO Q4H PRN PRN Reason: Pain Stop: 01/25/20 02:22 Potassium Chloride (Potassium Chloride 20 Meq/15 Ml Udc) 20 meq PO QAM [facility] Stop: 02/12/20 16:59 Last Admin: 01/15/20 08:38 Dose: 20 meq Documented by: Rivaroxaban (Rivaroxaban 20 Mg Tab) 20 mg PO QDD [facility] Stop: 02/10/20 16:29 Last Admin: 01/14/20 17:14 Dose: 20 mg Documented by:
--- NOTE | 2020-01-16 08:31 | Discharge Summary ---
Date of Service January 16, 2020 Admission HPI Per Admitting Provider History obtained from patient, family, and records. Medical history significant for history of CVA, HTN, PVD, recurrent PE on Xarelto, DM2 on oral meds, history of post-CVA seizures, bladder malignancy status post surgery, past tobacco abuse. Last confinement September 2018 under Urology service for bladder malignancy status post surgery. Few days history of junky cough symptoms without chest pain. Shortness of breath and wheezing as per patient. Coughing occasionally with meals and water intake if he is not careful as per patient. Chronic abdominal discomfort with alternating constipation diarrhea. Poor appetite and oral intake. Denies dysuria complaints. At the ER, patient received Vancomycin and cefepime for sepsis. MEDICAL HISTORY: As above. 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 Admission Exam Per Admitting Provider Physical Exam: GENERAL: Comfortable, pleasant, mild hearing impairment, no respiratory distress SKIN: Normal color, warm HEENT: [place] palpebral conjunctivae, no ptosis, dry buccal mucosa NECK : Supple, no tenderness CHEST : Decreased breath sounds, expiratory wheezes, no tenderness HEART : Tachycardic, no obvious murmurs ABDOMEN: Some distention, nontender EXTREMITIES : No LE swelling/tenderness, no other conspicuous deformities noted NEUROLOGIC : Coherent, no facial asymmetry, chronic left upper extremity paresis Principal Diagnosis Sepsis secondary to aspiration pneumonia, history of CVA, seizures, hype rtension, recurrent PE on Xarelto, diabetes type 2 Discharge Exam Constitutional well developed, well nourished and + obese; no acute distress and not ill appearing Eyes PERRL, conjunctivae normal, anicteric sclerae ENMT external ear and nose normal, oropharynx normal Neck trachea midline, no thyromegaly Respiratory normal respiratory effort; no respiratory distress Auscultation: + diminished lung sounds and + crackles Cardiovascular Rate/Rhythm: regular rate and regular rhythm Heart Sounds: no murmur Extremities: + edema (Trace edema bilaterally) Gastrointestinal (Abdomen) Inspection/Auscultation: abdomen normal to inspection and normal bowel sounds; abdomen not distended Percussion/Palpation: abdomen soft Neurologic moves all extremities; no focal motor deficits Psychiatric A+Ox3, euthymic affect Lymphatic no cervical or axillary lymphadenopathy Discharge Data Allergies Allergy/AdvReac Type Severity Reaction Status Date / Time [place]-Ywp Reductase AdvReac Severe MUSCLE Verified 01/10/20 23:28 Inhibitor CRAMPS lactose AdvReac Intermediate GI SYMPTOMS Verified 01/10/20 23:28 Consultations 01/10/20 23:25 ED Decision to Admit Stat 01/11/20 13:41 Consult General Surgery Routine Ordered Studies 01/10/20 23:24 CT abd pelvis wo con Urgent Hospital Course (1) Severe sepsis: SIRS plus lactic acid elevation Likely secondary to aspiration pneumonia Blood and urine cultures have been negative, Has been on Unasyn since admission Unasyn on admission, patient continued to be tachycardic and lactic acid continued to be elevated, switched to Zosyn and gave more IV fluids Mucinex, incentive spirometer Aspiration precautions Swallow eval - diet advanced to easy to chew IV antibiotic has been changed to oral Augmentin Remains asymptomatic Will be discharged home this afternoon Abdominal pain Seems to have some chronic abdominal pain since his cholecystectomy Patient complains of abdominal tenderness, worsening in the past 2 weeks, and reports worsening umbilical hernia There is a small palpable mass above umbilicus, positive abdominal distention Consult general surgery for possible bowel ischemia, CT abdomen pelvis unremarkable on admission Per general surgery, mass is most likely seroma, no concern for incarcerated hernia Appreciate surgery input and recommendation Denies any mid abdominal pain History of CVA History post CVA seizures, 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 Xarelto DNR Received PT and OT evaluation-recommended return home Discussed with the patient in detailed He was advised to use the walker and take extreme precautions to avoid any falls He is agreeable with the recommendation Will be discharged this afternoon Total Time Total Time Spent Total Time Spent (In Minutes): 35 minutes Total Time Includes: Examination of the Patient, Discharge Planning, Medication Reconciliation and Communication With Other Providers Discharge Plan Discharge Items Patient Disposition: Home - Self-Care Reason For Visit: SEPSIS Discharge Diagnosis: Sepsis secondary to aspiration pneumonia, history of CVA, seizures, hypertension, recurrent PE on Xarelto, diabetes type 2 Condition on Discharge: Fair Activity: Resume your previous activity Non-emergency contact: Primary Care Provider Call non-emergency contact if: you have any medication questions and your symptoms worsen Follow-up/Referrals: Raul Benitez MD [Outside Practitioners] - (Date & Time 01/19/2020 1:00 PM Provider Rossy Terry MD Department Internal Medicine [facility] ) Diet: Carb Consistent or DM2 and Heart Healthy Addtl Attending Provider Instructions: Please take extra precautions to avoid fall Pending Studies at Discharge: No Stand-Alone Forms: My [facility] [employer] Smoking Cessation Medications and DC Order Prescriptions: New amoxicillin-pot clavulanate [Augmentin] 875-125 mg Tablet 1 tab PO BIDM 6 Days Qty: 12 RF: 0 Lactinex 1 million cell tablet,chewable 1 tab PO BID Qty: 30 RF: 0 Continued metformin 500 mg Tablet 500 mg PO BIDM RF: 0 levetiracetam 750 mg Tablet 1,500 mg PO AMHS RF: 0 ezetimibe [Zetia] 10 mg Tablet 10 mg PO QPM RF: 0 lisinopril 20 mg tablet 20 mg PO AMHS RF: 0 acetaminophen [Tylenol] 325 mg Capsule 325 mg PO Q6H PRN (Reason: Pain) RF: 0 amlodipine 5 mg Tablet 5 mg PO QAM RF: 0 Xarelto 20 mg Tablet 20 mg PO DAILY RF: 0 Discharge Orders: Discharge Order (Routine); Ordered 01/15/20 Ordered By: Jeannine Gandhi Admission Data Admit Date/Time: 01/11/20 01:12 Attending Provider: Jeannine Gandhi Admit Provider: Marcos Oro Primary Care Provider: PCP,NO Other Providers: Marcos Oro ; Eloisa Arnold ; Familia Ashraf Other Interventions: Discharge Summary Assessment (RN) Last Done: 01/15/20 14:32
== END 2020-01-15 17:23 | disposition home health service (06) | DRG 871 ==
LOC: ED 21:02 → SUATTDRO 01-11 01:12 → 2W 01-11 01:12

== ENCOUNTER 2020-11-06 08:25 | Inpatient (IN) ==
[2020-11-06] MEDS ORDERED: ACETAMINOPHEN 500 MG TAB PO STA (09:03)
[2020-11-06] MEDS ORDERED: SODIUM CHLORIDE 0.9% 1000ML 1,000 ML IV ONE ×3 (09:03→10:20)
--- NOTE | 2020-11-06 09:09 | Emergency Department Note ---
Impression & Plan Sepsis, Fever of unknown origin ED Provider Note Name: BERENICE MIRANDA Age: 75 Sex: M Arrives Via: Walk-In Informant: Patient ED Provider: David Gross MD Chief Complaint: Illness Impression: See Above Medical Decision Makin yr old male with extensive past medical history including severe sepsis history, arrives for evaluation of illness, cough and chills. Tiired and ill appearing and with tachy, mild fever, and findings felt that sepsis workup war ranted. Initially fluid bolus started and broad labs obtained. WBC 17, Lactate elevated consistent with sepsis. Zosyn started and further IV hydration initiated. Patient received 3 L NSS bolus, Zosyn, Tylenol. He is feeling much better but with findings clearly will need hospitalization. Would suspect respiratory infection given symptoms but cxr clear and covid negative at this time without significant hypoxia. No abdominal pain nor TTP to suggest intraabdominal infection. No meningitis by exam. HR coming down and blood pressures stable without evidence of shock other than lactate elevation. Hospitalist in to evaluate further. Prior Medical Record and Triage/Nursing Notes reviewed by Me Additional history obtained from chart Differentials:Viral syndrome, otitis, pharyngitis, pneumonia, influenza, meningitis, urinary tract infection, sepsis, bacteremia, as well as other pathologies. Vital Signs: reviewed and remarkable for Tachy, febrile, mild low O2 sats Interventions: saline lock, nss bolus 3 L IV, zosyn 4.5 gm iv Labs:Reviewed and remarkable for Elevated wbc, elevated lactate Imaging:X ray results are stated below per my interpretation: Chest: 1 view: No infiltrate, no effusion, normal cardiac border. EKG:Per My Interpretation: Indication Sepsis: Sinus Tach 117 bpm, qtc 446. No Ectopy. No Ischemia. Compared to EKG 01/10/20, no significant changes with similar sinus tach at that time. Cardiac/Tele Monitoring: Cardiac Monitoring: An Order was placed for continuous cardiac monitoring. The monitor shows a rate of 110 with a sinus tach rhythm. Consults:Sari Baileyist Plan: Disposition:Hospitalization Condition: Fair History of Present Illness:75 yr old male arrives for evaluation of cough. Patient with several days of not feeling well. Now having cough, fevers, chills, nausea, headache, body aches, runny nose, sore throat, fatigue, and weakness. Denies syncope, hemoptysis, vomiting, abdominal pain, back pain, urinary/bowel symptoms, leg swelling, vision changes, neck stiffness, rashes, nor other symptoms. No medications prior to arrival. Nothing makes better nor worse. No covid vaccination. No known sick contacts. History of sepsis and pneumonia previously. ROS: See above HPI for pertinent positives & negatives. A total of 10 systems reviewed and were otherwise negative. Past Medical History:Sepsis, CVA, DVT/PE, DMII, HTN, Seizure, Bladder CA, CAD, PAC, HLP Past Surgical History:Umbilical hernia, cardiac stent, appendectomy Family History:See Below, Grandson of covid Social History:Lives with , no smoking/etoh Home Medications:See Below Allergies:Statins, Lactose Vitals:Blood Pressure: 152/75, Pulse 121, RR 18, T 37.7C, O2 92% on RA Physical Exam: GENERAL: Patient is ill appearing and in moderate distress. EYES: No scleral icterus, unremarkable pupils. ENT: Mucous membranes dry, no nasal congestion. NECK: No masses appreciated, nomeningismus, trachea is midline. RESPIRATORY: Tachypnea, bilateral equal crackles, junky cough CARDIOVASCULAR: Tachy.No murmurs, rubs, gallops appreciated. GASTROINTESTINAL: Abdomen soft, non-tender, no peritonitis.Bowel sounds positive.No masses appreciated. BACK: No midline tenderness, no CVA tenderness EXTREMITIES: Normal motion all extremities, no cyanosis, no edema. NEUROLOGIC: Alert and oriented, no acute motor or sensory deficits, left arm weakness/wasting, cranial nerves grossly intact. SKIN: No rash, no jaundice, no diaphoresis. PSYCH: Appropriate GCS: 15 ED Course: Times/Reassessments: improving HR and patient feeling better Critical Care: I have personally spent 45 minutes of critical care time in the direct ma nagement of this patient. Severe Sepsis requiring aggressive resuscitation management. This was a life/limb threatening event. This 45 minutes is in excess of all separately billable procedures. David Gross MD Past Med/Surg History Medical History (Updated 11/07/20 @ 07:38 by David Gross MD) Bile leak, postoperative After lap carlotta 08/20, had subsequent ERCP with stent placement, stent removed 09/30. Bladder tumor Noted incidentally on CT 09/16/18. Patient to ED on 09/29 with hematuria. DM type 2 (diabetes mellitus, type 2) A1c 6.3 07/2018 History of pulmonary embolism [facility] 09/06. Discharged on Xarelto. History of stroke 5 years ago, residual CANNOT USE LEFT ARM - IN SLING; LEFT LEG WEAK - USES [employer]EN WALKER HTN (hypertension) Left hemiparesis On anticoagulant therapy CURRENTLY ON HOLD FROM E.R. 09/29/18 DUE TO HEMATURIA. PT TO F/U 10/02/18 WITH PCP REGARDING HIS XARELTO. PAD (peripheral artery disease) Seizure disorder 2/2 CVA. On Keppra. Surgical History (Updated 11/06/20 @ 17:31 by Carolyn Waldrop PA-C) H/O umbilical hernia repair History of appendectomy History of cholecystectomy Due to gangrenous gallbladder. Complicated by bile leak, had subsequent ERCP with stent placement on 08/21. To [facility] ED 09/16 with sepsis. CARA drain removed, IV ABX. History of colonoscopy History of cystoscopy History of right common carotid artery stent placement S/P ERCP 09/30 for stent removal, [facility]. Family History Mother Diabetes Father Stroke Social History Smoking Status: Former smoker Tobacco Type: Cigarettes Second Hand Exposure: No; Do You Dip or Chew Tobacco: No; Tobacco Cessation Education Requested by Patient: No Hx Alcohol Use: No Hx Substance Use: No Preferred Language: Luxembourgish Communication Ability: Effective Ell Teacher Required: No Beliefs That Will Affect Care: None marital status: Current Living Situation: Spouse Other Information That Helps Us Care for You: No Feels Safe at Home: Yes Safety Concerns: Feels Safe At This Time Assistive Devices: Oxygen - Continuous Allergies Allergies Allergy/AdvReac Type Severity Reaction Status Date / Time Yhgyfzb-Eat-Vcd Reductase AdvReac Severe MUSCLE Verified 11/06/20 10:43 Inhibitor CRAMPS lactose AdvReac Intermediate GI SYMPTOMS Verified 11/06/20 10:43 Home Meds Home Medications Medication Instructions Recorded Confirmed ezetimibe 10 mg tablet (Zetia) 10 mg PO QDD 12/17/17 11/06/20 levetiracetam 750 mg tablet 1,500 mg PO AMHS 12/17/17 11/06/20 (Keppra) metformin 500 mg tablet 500 mg PO BIDM 12/17/17 11/06/20 lisinopril 20 mg tablet (Prinivil) 20 mg PO AMHS 09/06/18 11/06/20 amlodipine 5 mg tablet (Norvasc) 5 mg PO QAM 01/10/20 11/06/20 rivaroxaban 20 mg tablet (Xarelto) 20 mg PO QDD 01/10/20 11/06/20 dicyclomine 10 mg capsule 10 mg PO BID PRN 11/06/20 11/06/20 fluticasone propionate 50 1 spray INTRANASAL HS 11/06/20 11/06/20 mcg/actuation nasal spray,suspension (Flonase Allergy Relief) tamsulosin 0.4 mg capsule (Flomax) 0.8 mg PO HS 11/06/20 11/06/20 Results & Data (ED) Vital Signs Vital Signs - 24 hr 11/06/20 08:35 11/06/20 08:48 11/06/20 09:52 Temperature 37.7 C H Temperature Source Oral Temporal Artery Scan Pulse Rate 121 H 120 H Pulse Rate [Radial] Pulse Rhythm Regular Pulse Strength Normal Respiratory Rate 18 23 Respiratory Effort / Characteristics Non-Labored Spontaneous Respiratory Depth Normal Respiratory Pattern Regular Blood Pressure 152/75 H Blood Pressure [Left Arm] Blood Pressure Mean 100 Blood Pressure Mean [Left Arm] Blood Pressure Position Sitting Pulse Oximetry 92 Oxygen Delivery Method Room Air Sepsis Recent Fever Within 48 Hours No Sepsis New/Unexplained Change in Mental Status N/A Sepsis Action Taken by Nursing No Action Required 11/06/20 10:00 11/06/20 11:15 Temperature Temperature Source Pulse Rate 115 H Pulse Rate [Radial] 97 H Pulse Rhythm Pulse Strength Respiratory Rate 27 H 16 Respiratory Effort / Characteristics Respiratory Depth Respiratory Pattern Blood Pressure 178/81 H Blood Pressure [Left Arm] 134/65 Blood Pressure Mean 113 Blood Pressure Mean [Left Arm] 88 Blood Pressure Position Pulse Oximetry 97 Oxygen Delivery Method Room Air Sepsis Recent Fever Within 48 Hours Sepsis New/Unexplained Change in Mental Status Sepsis Action Taken by Nursing Laboratory Data Result diagrams: 11/07/20 06:21 11/07/20 06:21 Lab Results 11/06/20 11/06/20 11/06/20 Range/Units 09:40 09:40 09:45 WBC 17.48 H (4.8-10.8) K/uL RBC 4.86 (4.7-6.1) M/uL Hgb 15.3 (14.0-18.0) g/dL Hct 44.9 (42-52) % MCV 92.4 (80-100) fL MCH 31.5 (25-34) pg MCHC 34.1 (32-36) g/dL RDW Std Deviation 45.6 (36.4-46.3) fL RDW Coeff of Araceli 13.5 (11.5-14.5) % Plt Count 314 (130-400) K/uL MPV 10.3 (7.4-10.4) fL Immature Gran % (Auto) 0.3 % Neut % (Auto) 84.1 % Lymph % (Auto) 8.2 % Erie % (Auto) 7.2 % Eos % (Auto) 0.1 % Baso % (Auto) 0.1 % Neut # (Auto) 14.72 H (1.4-6.5) K/uL Lymph # (Auto) 1.43 (1.2-3.4) K/uL Erie # (Auto) 1.25 H (0.11-0.59) K/uL Eos # (Auto) 0.01 (0-0.5) K/uL Baso # (Auto) 0.02 (0-0.2) K/uL Immature Gran # (Auto) 0.05 H (0.00-0.02) K/uL PT (9.0-12.0) Seconds INR (0.9-1.1) Sodium (136-145) mmol/L Potassium (3.5-5.1) mmol/L Chloride (98-107) mmol/L Carbon Dioxide (21-32) mmol/L Anion Gap (3-11) BUN (7-18) mg/dl Creatinine (0.6-1.4) mg/dl Est Cr Clr Drug Dosing ml/min Est GFR ( Amer) ml/min Est GFR (Non-Af Amer) ml/min BUN/Creatinine Ratio (10-20) Glucose (70-99) mg/dl Lactate (0.4-2.0) mmol/L Calcium (8.5-10.1) mg/dl Magnesium (1.8-2.4) mg/dl Total Bilirubin (0.2-1) mg/dl Direct Bilirubin (0-0.2) mg/dl AST (15-37) U/L ALT (12-78) U/L Alkaline Phosphatase (45-117) U/L Troponin I (0-0.045) ng/ml Total Protein (6.4-8.2) gm/dl Albumin (3.4-5.0) gm/dl Lipase (73-393) U/L Procalcitonin (0-0.5) ng/ml Urine Color Urine Appearance (Clear) Urine pH (4.5-7.5) Ur Specific Victor (1.000-1.030) Urine Protein (Negative) Urine Glucose (UA) (Negative) Urine Ketones (Negative) Urine Blood (Negative) Urine Nitrite (Negative) Urine Bilirubin (Negative) Urine Urobilinogen (Negative) Ur Leukocyte Esterase (Negative) Urine WBC (Auto) (0-5) /hpf Urine RBC (Auto) (0-4) /hpf U Hyaline Cast (Auto) (0-5) /lpf U Epithel Cells (Auto) (0-5) /lpf Urine Bacteria (Auto) (Negative) COVID-19 Eval Order Covid19 at [facility] SARS-CoV-2 (PCR) NEGATIVE (Negative) 11/06/20 11/06/20 11/06/20 Range/Units 09:45 09:45 09:45 WBC (4.8-10.8) K/uL RBC (4.7-6.1) M/uL Hgb (14.0-18.0) g/dL Hct (42-52) % MCV (80-100) fL MCH (25-34) pg MCHC (32-36) g/dL RDW Std Deviation (36.4-46.3) fL RDW Coeff of Araceli (11.5-14.5) % Plt Count (130-400) K/uL MPV (7.4-10.4) fL Immature Gran % (Auto) % Neut % (Auto) % Lymph % (Auto) % Erie % (Auto) % Eos % (Auto) % Baso % (Auto) % Neut # (Auto) (1.4-6.5) K/uL Lymph # (Auto) (1.2-3.4) K/uL Erie # (Auto) (0.11-0.59) K/uL Eos # (Auto) (0-0.5) K/uL Baso # (Auto) (0-0.2) K/uL Immature Gran # (Auto) (0.00-0.02) K/uL PT 11.6 (9.0-12.0) Seconds INR 1.2 H (0.9-1.1) Sodium 137 (136-145) mmol/L Potassium 3.8 (3.5-5.1) mmol/L Chloride 104 (98-107) mmol/L Carbon Dioxide 26 (21-32) mmol/L Anion Gap 8.0 (3-11) BUN 17 (7-18) mg/dl Creatinine 1.24 (0.6-1.4) mg/dl Est Cr Clr Drug Dosing 52.3 ml/min Est GFR ( Amer) 66.0 ml/min Est GFR (Non-Af Amer) 56.9 ml/min BUN/Creatinine Ratio 13.7 (10-20) Glucose 226 H (70-99) mg/dl Lactate (0.4-2.0) mmol/L Calcium 9.1 (8.5-10.1) mg/dl Magnesium 1.2 L (1.8-2.4) mg/dl Total Bilirubin 0.6 (0.2-1) mg/dl Direct Bilirubin 0.1 (0-0.2) mg/dl AST 20 (15-37) U/L ALT 42 (12-78) U/L Alkaline Phosphatase 74 (45-117) U/L Troponin I < 0.015 (0-0.045) ng/ml Total Protein 8.0 (6.4-8.2) gm/dl Albumin 3.8 (3.4-5.0) gm/dl Lipase 69 L (73-393) U/L Procalcitonin < 0.05 (0-0.5) ng/ml Urine Color Urine Appearance (Clear) Urine pH (4.5-7.5) Ur Specific Victor (1.000-1.030) Urine Protein (Negative) Urine Glucose (UA) (Negative) Urine Ketones (Negative) Urine Blood (Negative) Urine Nitrite (Negative) Urine Bilirubin (Negative) Urine Urobilinogen (Negative) Ur Leukocyte Esterase (Negative) Urine WBC (Auto) (0-5) /hpf Urine RBC (Auto) (0-4) /hpf U Hyaline Cast (Auto) (0-5) /lpf U Epithel Cells (Auto) (0-5) /lpf Urine Bacteria (Auto) (Negative) COVID-19 Eval Order SARS-CoV-2 (PCR) (Negative) 11/06/20 11/06/20 Range/Units 10:01 11:08 WBC (4.8-10.8) K/uL RBC (4.7-6.1) M/uL Hgb (14.0-18.0) g/dL Hct (42-52) % MCV (80-100) fL MCH (25-34) pg MCHC (32-36) g/dL RDW Std Deviation (36.4-46.3) fL RDW Coeff of Araceli (11.5-14.5) % Plt Count (130-400) K/uL MPV (7.4-10.4) fL Immature Gran % (Auto) % Neut % (Auto) % Lymph % (Auto) % Erie % (Auto) % Eos % (Auto) % Baso % (Auto) % Neut # (Auto) (1.4-6.5) K/uL Lymph # (Auto) (1.2-3.4) K/uL Erie # (Auto) (0.11-0.59) K/uL Eos # (Auto) (0-0.5) K/uL Baso # (Auto) (0-0.2) K/uL Immature Gran # (Auto) (0.00-0.02) K/uL PT (9.0-12.0) Seconds INR (0.9-1.1) Sodium (136-145) mmol/L Potassium (3.5-5.1) mmol/L Chloride (98-107) mmol/L Carbon Dioxide (21-32) mmol/L Anion Gap (3-11) BUN (7-18) mg/dl Creatinine (0.6-1.4) mg/dl Est Cr Clr Drug Dosing ml/min Est GFR ( Amer) ml/min Est GFR (Non-Af Amer) ml/min BUN/Creatinine Ratio (10-20) Glucose (70-99) mg/dl Lactate 4.4 H* (0.4-2.0) mmol/L Calcium (8.5-10.1) mg/dl Magnesium (1.8-2.4) mg/dl Total Bilirubin (0.2-1) mg/dl Direct Bilirubin (0-0.2) mg/dl AST (15-37) U/L ALT (12-78) U/L Alkaline Phosphatase (45-117) U/L Troponin I (0-0.045) ng/ml Total Protein (6.4-8.2) gm/dl Albumin (3.4-5.0) gm/dl Lipase (73-393) U/L Procalcitonin (0-0.5) ng/ml Urine Color Dark Yellow Urine Appearance Clear (Clear) Urine pH 5.0 (4.5-7.5) Ur Specific Victor 1.033 H (1.000-1.030) Urine Protein 2+ H (Negative) Urine Glucose (UA) 2+ H (Negative) Urine Ketones 1+ H (Negative) Urine Blood Trace H (Negative) Urine Nitrite Negative (Negative) Urine Bilirubin Negative (Negative) Urine Urobilinogen Negative (Negative) Ur Leukocyte Esterase Negative (Negative) Urine WBC (Auto) 5-10 H (0-5) /hpf Urine RBC (Auto) 0-4 (0-4) /hpf U Hyaline Cast (Auto) 5-10 H (0-5) /lpf U Epithel Cells (Auto) 10-20 H (0-5) /lpf Urine Bacteria (Auto) Negative (Negative) COVID-19 Eval Order SARS-CoV-2 (PCR) (Negative) Administered Medications Acetaminophen (Acetaminophen 325 Mg Tab) 650 mg PO Q4H PRN PRN Reason: Pain or Fever Stop: 12/06/20 13:33 Last Admin: 11/06/20 22:47 Dose: 650 mg Documented by: [id number] Albuterol (Albut/Ipratrop 3mg/0.5mg Neb 3 Ml Vial) 3 ml NEB Q4R PRN PRN Reason: Shortness Of Breath Or Wheezin Stop: 12/06/20 14:59 Last Admin: 11/06/20 23:16 Dose: 3 ml Documented by: [id number] Fluticasone Propionate (Fluticasone Propionate Na Spr 16 Gm Btl) 1 sprays SILKE HS [facility] Stop: 12/06/20 20:59 Last Admin: 11/06/20 20:54 Dose: 1 sprays Documented by: [id number] Piperacillin Sod/Tazobactam (Sod 3.375 gm/ Dextrose) 115 mls @ 28.75 mls/hr IV Q8H [facility]; Protocol Stop: 11/08/20 14:59 Last Admin: 11/07/20 06:02 Dose: 28.8 mls/hr Documented by: [id number] Infusion: 11/07/20 02:44 Dose: 0 mls/hr Documented by: [id number] Admin: 11/06/20 22:43 Dose: 28.8 mls/hr Documented by: [id number] Infusion: 11/06/20 18:41 Dose: 0 mls/hr Documented by: [id number] Admin: 11/06/20 14:40 Dose: 28.8 mls/hr Documented by: [id number] Sodium Chloride (Nss 1000ml) 1,000 mls @ 100 mls/hr IV .Q10H [facility] Stop: 12/06/20 16:14 Last Admin: 11/06/20 23:07 Dose: 100 mls/hr Documented by: [id number] Infusion: 11/06/20 23:06 Dose: 0 mls/hr Documented by: [id number] Admin: 11/06/20 17:45 Dose: 100 mls/hr Documented by: [id number] Insulin Aspart (Insulin Aspart 100 Units/Ml 3 Ml Pen) 0 units SC [facility] Stop: 12/06/20 20:59 Last Admin: 11/06/20 20:54 Dose: 2 units Documented by: [id number] Cosigned by: [id number] Levetiracetam (Levetiracetam 500 Mg Tab) 1,[address] [facility] Stop: 12/06/20 20:59 Last Admin: 11/06/20 20:55 Dose: 1,500 mg Documented by: [id number] Lisinopril (Lisinopril 20 Mg Tab) [address] [facility] Stop: 12/06/20 20:59 Last Admin: 11/06/20 20:55 Dose: 20 mg Documented by: [id number] Metoprolol Tartrate (Metoprolol Tartrate 1 Mg/Ml Vial) 2.5 mg IV Q6 PRN PRN Reason: Tachycardia Stop: 12/07/20 00:00 Last Admin: 11/06/20 22:40 Dose: 2.5 mg Documented by: [id number] Tamsulosin HCl (Tamsulosin Hcl 0.4 Mg Cap) 0.8 mg PO HS [facility] Stop: 12/06/20 20:59 Last Admin: 11/06/20 20:56 Dose: 0.8 mg Documented by: [id number] Discontinued Medications Acetaminophen (Acetaminophen 500 Mg Tab) 1,000 mg PO NOW STA Stop: 11/06/20 09:04 Last Admin: 11/06/20 10:00 Dose: 1,000 mg Documented by: [id number] Albuterol (Albut/Ipratrop 3mg/0.5mg Neb 3 Ml Vial) 3 ml NEB Q4R [facility] Stop: 12/06/20 14:59 Last Admin: 11/06/20 15:22 Dose: Not Given Documented by: [id number] Ezetimibe (Ezetimibe 10 Mg Tablet) 10 mg PO QDD [facility] Stop: 11/06/20 16:31 Last Admin: 11/06/20 18:20 Dose: 10 mg Documented by: [id number] Sodium Chloride (Nss 1000ml) 1,000 mls @ 999 mls/hr IV .Q1H1M ONE Stop: 11/06/20 10:03 Last Infusion: 11/06/20 11:21 Dose: 0 mls/hr Documented by: [id number] Admin: 11/06/20 10:21 Dose: 999 mls/hr Documented by: [id number] Sodium Chloride (Nss 1000ml) 1,000 mls @ 999 mls/hr IV .Q1H1M ONE Stop: 11/06/20 11:15 Last Infusion: 11/06/20 13:43 Dose: 0 mls/hr Documented by: [id number] Admin: 11/06/20 12:13 Dose: 999 mls/hr Documented by: [id number] Piperacillin Sod/Tazobactam Sod (Zosyn) 4.5 gm in 120 mls @ 240 mls/hr IV NOW ONE Stop: 11/06/20 10:44 Last Infusion: 11/06/20 11:04 Dose: 0 mls/hr Documented by: [id number] Admin: 11/06/20 10:23 Dose: 240 mls/hr Documented by: [id number] Sodium Chloride (Nss 1000ml) 1,000 mls @ 999 mls/hr IV .Q1H1M ONE Stop: 11/06/20 11:20 Last Admin: 11/06/20 15:01 Dose: Not Given Documented by: [id number] Magnesium Sulfate/Dextrose (Magnesium Sulfate / D5w) 1 gm in 100 mls @ 100 mls/hr IV NOW STA Stop: 11/06/20 12:01 Last Infusion: 11/06/20 12:07 Dose: 0 mls/hr Documented by: [id number] Admin: 11/06/20 11:07 Dose: 100 mls/hr Documented by: [id number] Sodium Chloride (Nss 1000ml) 500 mls @ 999 mls/hr IV .Q31M ONE Stop: 11/06/20 16:38 Last Infusion: 11/06/20 17:14 Dose: 0 mls/hr Documented by: [id number] Admin: 11/06/20 16:25 Dose: 999 mls/hr Documented by: [id number] Discharge Plan Visit Data Chief Complaint: Illness Stated Complaint: FEVER,SINUS PAIN,COUGH ED Provider: David Gross Discharge Problem: Sepsis, Fever of unknown origin Patient Disposition: Admitted As Inpatient Discharge Instructions Interventions: ED Discharge Assessment Last Done: 11/06/20 12:51 Discharge Problem: Sepsis Qualifiers: Sepsis type: sepsis due to unspecified organism Sepsis acute organ dysfunction status: with acute organ dysfunction Severe sepsis acute organ dysfunction type: unspecified Severe sepsis shock status: without septic shock Qualified Code(s): A41.9 - Sepsis, unspecified organism
[2020-11-06 10:10] LABS: Basophils # (auto) 0.02 K/uL (0-0.2); Basophils % (auto) 0.1 %; Eosinophils # (auto) 0.01 K/uL (0-0.5); Eosinophils % (auto) 0.1 %; Hematocrit (blood only) 44.9 % (42-52); Hemoglobin 15.3 g/dL (14.0-18.0); Immature Granulocytes # (auto) 0.05 K/uL (0.00-0.02); Immature Granulocytes % (auto) 0.3 %; Lymphocytes # (auto) 1.43 K/uL (1.2-3.4); Lymphocytes % (auto) 8.2 %; Mean Corpuscular Hemoglobin 31.5 pg (25-34); Mean Corpuscular Hgb Conc 34.1 g/dL (32-36); Mean Corpuscular Volume 92.4 fL (80-100); Mean Platelet Volume 10.3 fL (7.4-10.4); Monocytes # (auto) 1.25 K/uL (0.11-0.59); Monocytes % (auto) 7.2 %; Neutrophils # (auto) 14.72 K/uL (1.4-6.5); Neutrophils % (auto) 84.1 %; Platelet Count 314 K/uL (130-400); RDW Coefficient of Variation 13.5 % (11.5-14.5); RDW Standard Deviation 45.6 fL (36.4-46.3); Red Blood Count 4.86 M/uL (4.7-6.1); White Blood Count 17.48 K/uL (4.8-10.8)
[2020-11-06] MEDS ORDERED: PIPERACILL/TAZOBAC CONSULT ACTIVE PRN (10:15)
[2020-11-06] MEDS ORDERED: PIPERACILLIN/TAZOBACTAM 4.5 GM/120 ML BAG IV ONE (10:15)
[2020-11-06 10:22] LABS: INR 1.2 (0.9-1.1); Prothrombin Time 11.6 Seconds (9.0-12.0)
[2020-11-06 10:26] LABS: Alanine Aminotransferase 42 U/L (12-78); Albumin Level 3.8 gm/dl (3.4-5.0); Aspartate Aminotransferase 20 U/L (15-37); BUN Creatinine Ratio 13.7 (10-20); Bilirubin Direct 0.1 mg/dl (0-0.2); Blood Urea Nitrogen 17 mg/dl (7-18); Calcium 9.1 mg/dl (8.5-10.1); Carbon Dioxide 26 mmol/L (21-32); Chloride 104 mmol/L (98-107); Creatinine Clr Calc Pharmacy 52.3 ml/min; Est GFR (Non-African American) 56.9 ml/min; Glucose 226 mg/dl (70-99); Lipase 69 U/L (73-393); Magnesium 1.2 mg/dl (1.8-2.4); Potassium 3.8 mmol/L (3.5-5.1); Sodium 137 mmol/L (136-145)
--- NOTE | 2020-11-06 10:27 | XRay Report ---
XR chest 1V portable CLINICAL HISTORY: cough, shob COMPARISON STUDY: January 10, 2020 FINDINGS: No pneumothorax. No pleural effusion. No large infiltrates or consolidative lesions are seen. Cardiomediastinal silhouette is within normal limits in size. No significant pulmonary vascular congestion.. Osseous structures: Degenerative changes of the spine. IMPRESSION: 1. No acute pulmonary process. ACT 112: Negative or not required by law. The above report was generated using voice recognition software. It may contain grammatical, syntax o r spelling errors. Electronically signed by: Loren Rae DO 11/06/2020 10:26 AM
[2020-11-06 10:31] LABS: Alkaline Phosphatase 74 U/L (45-117); Bilirubin,Total 0.6 mg/dl (0.2-1); Troponin I < 0.015 ng/ml (0-0.045)
[2020-11-06] MEDS ORDERED: MAGNESIUM SULFATE / D5W 1 GM/100 ML BAG IV STA (11:02)
[2020-11-06 11:23] LABS: Appearance Urine Clear (Clear); Bacteria Urine Automated Negative (Negative); Bilirubin Urine Negative (Negative); Blood Urine Trace (Negative); Color Urine Dark Yellow; Glucose Urine UA 2+ (Negative); Ketones Urine 1+ (Negative); Leukocyte Esterase Urine Negative (Negative); Nitrite Urine Negative (Negative); Protein Urine 2+ (Negative); RBC Urine Automated 0-4 /hpf (0-4); Specific Gravity Urine 1.033 (1.000-1.030); Urobilinogen Urine Negative (Negative)
--- NOTE | 2020-11-06 12:01 | History & Physical Report ---
Date of Service November 06, 2020 Assessment & Plan (1) Sepsis: (2) URI (upper respiratory infection): Plan: This is a 75yo M with a PMH of type 2 diabetes, CKD 3, hypertension, left hemiparesis from history of right MCA stroke, history of pulmonary embolism on Xarelto, seizure disorder, history of bladder cancer and other medical problems listed below who presents with fever, cough and malaise x 4 days and meets sepsis criteria. HR 119, T 37.7 C, WBC 17, lactate 4.4--> 3.1 (repeat pending), procal normal CXR No acute pulmonary process UA without evidence of infection CT chest and abd/pelvis pending for further evaluation Continue Zosyn for now. Follow blood cultures, IV fluids, PRN duonebs (3) Abdominal pain: Plan: Diffuse TTP on physical exam LFTs within normal limits CT chest and abd/pelvis pending for further evaluation (4) History of pulmonary embolism: Plan: Continue Xarelto (5) Seizure disorder: Plan: Last known seizure 4 years ago. Continue Keppra (6) HTN (hypertension): Plan: Continue amlodipine, lisinopril (7) DM type 2 (diabetes mellitus, type 2): Plan: Stop taking Metformin a month ago due to side effect of diarrhea Diabetes education consult, likely to need other oral medication Repeat A1c pending SSI while in-patient BSG AC HS (8) Left hemiparesis: Plan: Residual deficit from remote right MCA stroke (9) Malignant neoplasm of bladder: Plan: Following guidelines for surveillance with noninvasive bladder cancers. Follows with Dr. Harry [facility] [place] urology DVT Ppx: Xarelto Code status: DNR PCP: Emmanuel Dispo: Admitted to PCU. Discharge planning ordered Patient seen in collaboration with Dr. Venegas. Please see addendum. History of Present Illness Chief Complaint: malaise, cough, fever Primary Care Provider: Raul Benitez MD This is a 75yo M with a PMH of type 2 diabetes, CKD 3, hypertension, left hemiparesis from history of right MCA stroke, history of pulmonary embolism on Xarelto, seizure disorder, history of bladder cancer and other medical problems listed below who presents with fever, cough and malaise x 4 days. noted fever of 99.9% Fahrenheit earlier today, which is T-max. Endorses malaise, cough with clear sputum, sore throat, fatigue and weakness. Feels it is difficult to get a good breath. No chills, headache, neck stiffness, rashes chest pain, nausea, vomiting, abdominal pain, dysuria, diarrhea or constipation. No recent choking or known aspiration. Also endorses poor appetite. is sick with similar viral symptoms. Took morning medications prior to arrival. Allergies Allergy/AdvReac Type Severity Reaction Status Date / Time Iihwxoc-Ohs-Too Reductase AdvReac Severe MUSCLE Verified 11/06/20 10:43 Inhibitor CRAMPS lactose AdvReac Intermediate GI SYMPTOMS Verified 11/06/20 10:43 Home Medications Medication Instructions Recorded Confirmed Type ezetimibe 10 mg tablet (Zetia) 10 mg PO QDD 12/17/17 11/06/20 History levetiracetam 750 mg tablet 1,500 mg PO AMHS 12/17/17 11/06/20 History (Keppra) metformin 500 mg tablet 500 mg PO BIDM 12/17/17 11/06/20 History lisinopril 20 mg tablet (Prinivil) 20 mg PO AMHS 09/06/18 11/06/20 History amlodipine 5 mg tablet (Norvasc) 5 mg PO QAM 01/10/20 11/06/20 History rivaroxaban 20 mg tablet (Xarelto) 20 mg PO QDD 01/10/20 11/06/20 History dicyclomine 10 mg capsule 10 mg PO BID PRN 11/06/20 11/06/20 History fluticasone propionate 50 1 spray INTRANASAL HS 11/06/20 11/06/20 History mcg/actuation nasal spray,suspension (Flonase Allergy Relief) tamsulosin 0.4 mg capsule (Flomax) 0.8 mg PO HS 11/06/20 11/06/20 History Past Med/Surg History Medical History (Updated 11/06/20 @ 17:31 by Carolyn Waldrop PA-C) Bile leak, postoperative After lap carlotta 08/20, had subsequent ERCP with stent placement, stent removed 09/30. Bladder tumor Noted incidentally on CT 09/16/18. Patient to ED on 09/29 with hematuria. DM type 2 (diabetes mellitus, type 2) A1c 6.3 07/2018 History of pulmonary embolism [facility] 09/06. Discharged on Xarelto. History of stroke 5 years ago, residual CANNOT USE LEFT ARM - IN SLING; LEFT LEG WEAK - USES YEN WALKER HTN (hypertension) Left hemiparesis On anticoagulant therapy CURRENTLY ON HOLD FROM E.R. 09/29/18 DUE TO HEMATURIA. PT TO F/U 10/02/18 WITH PCP REGARDING HIS XARELTO. PAD (peripheral artery disease) Seizure disorder 2/2 CVA. On Keppra. Surgical History (Updated 11/06/20 @ 17:31 by Carolyn Waldrop PA-C) H/O umbilical hernia repair History of appendectomy History of cholecystectomy Due to gangrenous gallbladder. Complicated by bile leak, had subsequent ERCP with stent placement on 08/21. To [facility] ED 09/16 with sepsis. CARA drain removed, IV ABX. History of colonoscopy History of cystoscopy History of right common carotid artery stent placement S/P ERCP 09/30 for stent removal, [facility]. Family History Mother Diabetes Father Stroke Social History Smoking Status: Former smoker Tobacco Type: Cigarettes Second Hand Exposure: No; Do You Dip or Chew Tobacco: No; Tobacco Cessation Education Requested by Patient: No Hx Alcohol Use: No Hx Substance Use: No Preferred Language: Djiboutian Communication Ability: Effective Home Lending Officer Required: No Beliefs That Will Affect Care: None marital status: Current Living Situation: Spouse Other Information That Helps Us Care for You: No Feels Safe at Home: Yes Safety Concerns: Feels Safe At This Time Assistive Devices: Special Shoe, Walker and Wheelchair Review of Systems Review of Systems: At least ten systems reviewed and negative except as noted in the HPI. Physical Exam Physical Exam: General Appearance: vitals as above, NAD, sitting up in bed, pleasant, ill appearing Head: normocephalic, atraumatic Eyes: normal inspection, PERRL, conjunctivae normal, anicteric sclerae ENT: external ear and nose normal, oropharynx normal Neck: normal visual inspection, trachea midline, no thyromegaly Respiratory: increased respiratory effort, diffuse rhonchi in lung levine, no wheeze or rales. + accessory muscle use Cardiovascular: tachycardic rate, rhythm, no murmur appreciated, normal peripheral pulses, no BLE edema. Vessels: no JVD Chest: normal inspection of chest Abdomen/GI: normal bowel sounds, soft, diffuse TTP throughout abdomen, no guarding, no hepatosplenomegaly Extremities/Musculoskeletal: no cyanosis or clubbing, L hemiparesis (chronic) Neurologic: PERRL, EOMI, accommodation nl, no face palsy, no dysarthria, CN's II-XI intact bilaterally and moves all extremities Psychiatric: A+Ox3, euthymic affect Skin: no rashes, normal color, warm/dry Results & Data Results & Data ([facility]) Vital Signs (Past 12 Hours) Vital Signs Temp Pulse Pulse Resp BP BP Pulse Ox 11/06/20 11:15 97 H 16 134/65 97 11/06/20 10:00 115 H 27 H 178/81 H 11/06/20 09:52 120 H 23 11/06/20 08:48 37.7 C H 121 H 18 152/75 H 92 Laboratory Results Short CBC 11/06/20 Range/Units 09:45 WBC 17.48 H (4.8-10.8) K/uL Hgb 15.3 (14.0-18.0) g/dL Hct 44.9 (42-52) % Plt Count 314 (130-400) K/uL BMP 11/06/20 09:45 Sodium 137 Potassium 3.8 Chloride 104 Carbon Dioxide 26 BUN 17 Creatinine 1.24 Glucose 226 H Calcium 9.1 Cardiac Enzymes 11/06/20 Range/Units 09:45 Troponin I < 0.015 (0-0.045) ng/ml Liver Function 11/06/20 Range/Units 09:45 Total Bilirubin 0.6 (0.2-1) mg/dl Direct Bilirubin 0.1 (0-0.2) mg/dl AST 20 (15-37) U/L ALT 42 (12-78) U/L Alkaline Phosphatase 74 (45-117) U/L Albumin 3.8 (3.4-5.0) gm/dl Urine 11/06/20 Range/Units 11:08 Urine Color Dark Yellow Urine Appearance Clear (Clear) Urine pH 5.0 (4.5-7.5) Ur Specific Mize 1.033 H (1.000-1.030) Urine Protein 2+ H (Negative) Urine Glucose (UA) 2+ H (Negative) Diagnostic Findings Chest X-Ray 11/06/20 09:04 XR chest 1V portable CLINICAL HISTORY: cough, shob COMPARISON STUDY: January 10, 2020 FINDINGS: No pneumothorax. No pleural effusion. No large infiltrates or consolidative lesions are seen. Cardiomediastinal silhouette is within normal limits in size. No significant pulmonary vascular congestion.. Osseous structures: Degenerative changes of the spine. IMPRESSION: 1. No acute pulmonary process. ACT 112: Negative or not required by law. The above report was generated using voice recognition software. It may contain grammatical, syntax or spelling errors. Electronically signed by: Loren Rae DO 11/06/2020 10:26 AM ECG Additional Comments: Sinus tachycardia with PACs at [address] and T wave abnormalities previously noted. Aberrant conduction new previous EKG Code Status & VTE Plan VTE Prophylaxis Plan VTE Prophylaxis will be ordered: Yes Supervising Physician Co-Signing Physician Notes History and physical exam performed by me as detailed by Carolyn Waldrop PA-C. History notable for 75yo M with a PMH of type 2 diabetes, CKD 3, hypertension, left hemiparesis from history of right MCA stroke, history of pulmonary embolism on Xarelto, seizure disorder, history of bladder cancer and other medical problems listed below who presents with fever, cough and malaise x 4 days On review of system patient also reports some lower abdominal discomfort. Physical exam notable for elderly man, in mild respiratory distress with tachypneic, nasal oxygen, diffuse rhonchi, tachycardic Lab work notable for WBC of 17, lactate of 4.4, magnesium of 1.2 Chest x-ray reported no acute process -Sepsis With report of fever, cough, malaise, upper respiratory symptoms. Met sepsis criteria with leukocytosis, tachycardia, tachypnea Continue Zosyn for now We will get CT chest and CT abdomen to better evaluate symptoms Get IV fluid bolus. Continue IV fluids Trend lactate Follow-up cultures Agree with other plans as detailed by Carolyn Waldrop PA-C
[2020-11-06] MEDS ORDERED: ACETAMINOPHEN 325 MG TAB PO PRN (13:34)
[2020-11-06] MEDS ORDERED: ONDANSETRON INJ 2 MG/ML 2 ML VIAL IV PRN (13:34)
[2020-11-06] MEDS ORDERED: POLYETHYLENE (MIRALAX) 17 GM PACK PO PRN (13:34)
[2020-11-06] MEDS: PIPERACILLIN/TAZOBACTAM 3.375 GM in DEXTROSE 5% 100 ML IV SCH ×2 (14:40→22:43)
[2020-11-06] MEDS ORDERED: ALBUT/IPRATROP 3MG/0.5MG NEB 3 ML VIAL NEB SCH (15:00)
[2020-11-06] MEDS ORDERED: SODIUM CHLORIDE 0.9% 1000ML 500 ML IV ONE (16:08)
[2020-11-06] MEDS ORDERED: EZETIMIBE 10 MG TABLET PO SCH (16:30)
[2020-11-06] MEDS ORDERED: GLUCOSE 10 TABS/TUBE PO PRN (17:18)
[2020-11-06] MEDS ORDERED: CARBOHYDRATES FOR HYPOGLYCEMIA PO PRN (17:18)
[2020-11-06] MEDS ORDERED: DEXTROSE 50% 50 ML SYRINGE IV PRN (17:18)
[2020-11-06] MEDS ORDERED: GLUCAGON FOR INJ 1 MG VIAL SQ PRN (17:18)
[2020-11-06] MEDS ORDERED: GLUCOSE 40% GEL 15 GM TUBE PO PRN (17:18)
[2020-11-06] MEDS ORDERED: DICYCLOMINE HCL 10 MG CAP PO PRN (17:22)
[2020-11-06] MEDS: SODIUM CHLORIDE 0.9% 1000ML 1,000 ML IV SCH ×2 (17:45→23:07)
[2020-11-06 18:23] LABS: Adenovirus PCR Not Detected (NotDetected); Bordetella parapertussis PCR Not Detected (NotDetected); Bordetella pertussis PCR Not Detected (NotDetected); Chlamydia pneumoniae PCR Not Detected (NotDetected); Coronavirus 229E PCR Not Detected (NotDetected); Coronavirus CoV-2 (COVID19)PCR Not Detected (NotDetected); Coronavirus HKU1 PCR Not Detected (NotDetected); Coronavirus NL63 PCR Not Detected (NotDetected); Coronavirus OC43PCR Not Detected (NotDetected); Human Metapneumovirus PCR Not Detected (NotDetected); Influenza A PCR Not Detected (NotDetected); Influenza B PCR Not Detected (NotDetected); Mycoplasma pneumoniae PCR Not Detected (NotDetected); Parainfluenza Virus 1 PCR Not Detected (NotDetected); Parainfluenza Virus 2 PCR Not Detected (NotDetected); Parainfluenza Virus 3 PCR Not Detected (NotDetected); Parainfluenza Virus 4 PCR Not Detected (NotDetected); Respiratory Syncytial VirusPCR Not Detected (NotDetected)
[2020-11-06 18:25] LABS: Rhinovirus/Enterovirus PCR DETECTED (NotDetected)
--- NOTE | 2020-11-06 19:02 | CT Scan Report ---
CT OF THE CHEST WITH IV CONTRAST CLINICAL HISTORY: Better assess lungs/chest, hypoxia, cough COMPARISON STUDY: September 16, 2018 TECHNIQUE: Following the IV administration of 94 mL of Optiray, CT of the thorax was performed from the thoracic inlet to the lung bases. Images are reviewed in the axial, sagittal, and coronal planes. IV contrast was administered without complication. A dose lowering technique was utilized adhering to the principles of ALARA. CT DOSE: 1373.04 mGy.cm FINDINGS: Thyroid: Imaged portions of the thyroid gland are normal in appearance. Thoracic aorta: The thoracic aorta is normal in course and caliber, noting standard 3-vessel arch mouna giuliano. No aneurysm or dissection is seen. Pulmonary vasculature: Is normal in caliber. HEART: The heart is normal in size and configuration, without pericardial effusion. Severe coronary c alcifications are seen. Lungs and pleural spaces: Proximal aspect of trachea is patent. This study is acquired during expiratory phase. Significant jade rowing of distal trachea and left mainstem bronchus are seen. Focal area of complete collapse of the right mainstem bronchus is seen. Above-mentioned findings might represent tracheobronchomalacia. No definite infiltrates or consolidative lesions are seen. No pleural effusion demonstrated. Evaluation of pulmonary parenchyma is significantly limited due to respiratory motion artifact. Mediastinum: There is no mediastinal lymphadenopathy. Hortencia: Clear. Axilla: Clear. Upper abdomen: Hepatic steatosis. No definite acute intra-abdominal process. Skeletal structures: There are no lytic or blastic osseous lesions. IMPRESSION: 1. No large infiltrates or consolidative lesions. No pleural effusion. Limited evaluation of pulmona ry parenchyma due to significant motion artifact. 2. Partial expiratory phase and focal area of significant trachea and bronchial stenosis on the left and complete occlusion of the right within main stem bronchus likely represent tracheobronchomalacia . Please correlate above-mentioned findings with prior history and pulmonology evaluation. 3. Hepatic steatosis. 4. Atherosclerosis. 5. The rest of findings as above. ACT 112: Negative or not required by law. The above report was generated using voice recognition software. It may contain grammatical, syntax o r spelling errors. Electronically signed by: Loren Rae DO 11/06/2020 7:01 PM
--- NOTE | 2020-11-06 19:09 | CT Scan Report ---
CT abd pelvis IV con only CLINICAL HISTORY: diffuse abd pain, sepsis COMPARISON STUDY: January 10, 2020 TECHNIQUE: A dose lowering technique was utilized adhering to the principles of ALARA. CT DOSE: FINDINGS: Lower chest: No large infiltrates or consolidative lesions. Evaluation is limited due to motion artif act.. Liver: Hepatic steatosis. No focal liver lesions or intrahepatic biliary dilatation. Gallbladder: Surgically absent. Spleen: Normal in size and attenuation. Pancreas: Unremarkable. Adrenal glands: Unremarkable. Kidneys: There is symmetric renal cortical enhancement. The kidneys are normal in size without hydron ephrosis. Pelvic viscera: Urinary bladder is adequately filled with urine. Prostate gland is enlarged with dyst rophic calcifications within its parenchyma. Bowel: The small bowel and colon are normal in course and caliber. Appendix is not well seen. Evaluat ion is limited due to motion artifact. Mild diverticulosis of sigmoid colon is seen without evidence of diverticulitis. Peritoneum: There is no intraperitoneal free air or abdominal ascites. Vasculature: Abdominal aorta is normal in caliber with extensive partial calcified plaques within its wall. Extensive calcified plaques within bilateral iliac arteries which might course stenosis. Adenopathy: None. Skeletal structures: No destructive osseous lesions are seen. IMPRESSION: 1. No acute intra-abdominal process. Nondilated loops of bowel. Appendix is not well seen. 2. Hepatic steatosis. Status post cholecystectomy. 3. No hydronephrosis or nephrolithiasis. 4. Atherosclerosis. 5. The rest of findings as above. ACT 112: Negative or not required by law. The above report was generated using voice recognition software. It may contain grammatical, syntax o r spelling errors. Electronically signed by: Loren Rae DO 11/06/2020 7:08 PM
[2020-11-06] MEDS ORDERED: METOPROLOL TARTRATE 1 MG/ML VIAL IV PRN (20:06)
[2020-11-06] MEDS: INSULIN ASPART 100 UNITS/ML 3 ML PEN SC SCH (20:54)
[2020-11-06] MEDS: FLUTICASONE PROPIONATE NA SPR 16 GM BTL NAE SCH (20:54)
[2020-11-06] MEDS: lisinopril 20 MG TAB PO SCH (20:55)
[2020-11-06] MEDS: levETIRAcetam 500 MG TAB PO SCH (20:55)
[2020-11-06] MEDS: TAMSULOSIN HCL 0.4 MG CAP PO SCH (20:56)
[2020-11-06] MEDS: ALBUT/IPRATROP 3MG/0.5MG NEB 3 ML VIAL NEB PRN (23:16)
[2020-11-07] MEDS: PIPERACILLIN/TAZOBACTAM 3.375 GM in DEXTROSE 5% 100 ML IV SCH ×3 (06:02→22:08)
[2020-11-07 06:54] LABS: Hemoglobin 13.4 g/dL (14.0-18.0); Mean Corpuscular Hemoglobin 30.9 pg (25-34); Mean Corpuscular Hgb Conc 33.5 g/dL (32-36); Mean Corpuscular Volume 92.4 fL (80-100); Mean Platelet Volume 10.1 fL (7.4-10.4); Platelet Count 239 K/uL (130-400); RDW Coefficient of Variation 13.8 % (11.5-14.5); Red Blood Count 4.33 M/uL (4.7-6.1); White Blood Count 8.71 K/uL (4.8-10.8)
--- NOTE | 2020-11-07 07:24 | Electrocardiogram Report ---
Test Reason : Blood Pressure : / mmHG Vent. Rate : 117 BPM Atrial Rate : 117 BPM P-R Int : 152 ms QRS Dur : 070 ms QT Int : 320 ms P-R-T Axes : 050 039 054 degrees QTc Int : 446 ms Sinus tachycardia Low voltage QRS Nonspecific ST and T wave abnormality Abnormal ECG Confirmed by Dago Lynn ([id number]) on 11/07/2020 7:23:59 AM Referred By: REFERRED SELF Confirmed By:Meño Lynn
[2020-11-07 07:31] LABS: Albumin Level 2.8 gm/dl (3.4-5.0); BUN Creatinine Ratio 13.1 (10-20); Bilirubin Direct 0.1 mg/dl (0-0.2); Bilirubin,Total 0.7 mg/dl (0.2-1); Calcium 7.9 mg/dl (8.5-10.1); Creatinine Clr Calc Pharmacy 72.8 ml/min; Est GFR (African American) 97.6 ml/min; Est GFR (Non-African American) 84.2 ml/min; Potassium 3.5 mmol/L (3.5-5.1); Total Protein 6.2 gm/dl (6.4-8.2)
[2020-11-07] MEDS: SODIUM CHLORIDE 0.9% 1000ML 1,000 ML IV SCH (07:35)
[2020-11-07] MEDS: lisinopril 20 MG TAB PO SCH ×2 (08:33→21:35)
[2020-11-07] MEDS: amLODIPine BESYLATE 5 MG TAB PO SCH (08:34)
[2020-11-07] MEDS: levETIRAcetam 500 MG TAB PO SCH ×2 (08:34→21:35)
[2020-11-07] MEDS: INSULIN ASPART 100 UNITS/ML 3 ML PEN SC SCH ×4 (08:38→20:28)
--- NOTE | 2020-11-07 10:51 | Hospitalist Progress Note ---
Date of Service November 07, 2020 Assessment & Plan (1) Sepsis: (2) URI (upper respiratory infection): Plan: 75yo M with a PMH of type 2 diabetes, CKD 3, hypertension, left hemiparesis from history of right MCA stroke, history of pulmonary embolism on Xarelto, seizure disorder, history of bladder cancer and other medical problems listed below who presents with fever, cough and malaise x 4 days and meets sepsis criteria. HR 119, T 37.7 C, WBC 17, lactate 4.4--> 3.1-->2.2, procal normal CXR No acute pulmonary process UA without evidence of infection Covid test was negative. 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 Will appreciate pulmonology evaluation. Will keep antibiotics on for 48h at least and monitor Follow up cultures (3) Abdominal pain: Plan: Diffuse TTP on physical exam on admission. Abdominal tenderness resolved. Reports only low chest/upper abdominal pain only associated with cough. CT abdomen pelvis did not reveal free of any acute findings (4) History of pulmonary embolism: Plan: Continue Xarelto (5) Seizure disorder: Plan: Last known seizure 4 years ago. Continue Keppra (6) HTN (hypertension): Plan: Continue amlodipine, lisinopril (7) DM type 2 (diabetes mellitus, type 2): Plan: Stopped taking Metformin a month ago due to side effect of diarrhea Diabetes education consult, likely to need other oral medication Repeat A1c pending SSI while in-patient BSG AC HS (8) Left hemiparesis: Plan: Residual deficit from remote right MCA stroke (9) Malignant neoplasm of bladder: Plan: Following guidelines for surveillance with noninvasive bladder cancers. [place]. [place] [facility] Ppx: Xarelto Code status: DNR PCP: [facility] Admission and Anticipated Discharge Date Admission Date: November 06, 2020 Subjective 75yo M with a PMH of type 2 diabetes, CKD 3, hypertension, left hemiparesis from history of right MCA stroke, history of pulmonary embolism on Xarelto, seizure disorder, history of bladder cancer and other medical problems listed below who presents with fever, cough and malaise x 4 days Being managed for sepsis secondary to upper respiratory infection. Patient seen and examined this morning. Still reports coughing, congestion, rhinorrhea, sore throat. Reports some lower chest pain associated with coughing. Review of Systems Constitutional: + fever (Reported fever overnight) and + fatigue; no chills Eyes: no problem reported Ear, Nose, Mouth, Throat: + nasal congestion, + nasal discharge and + sore throat Respiratory: + cough and + dyspnea Cardiovascular: + chest pain (With cough); no chest pain at rest, no orthopnea, no palpitations and no lightheadedness Gastrointestinal: no abdominal pain, no nausea, no vomiting and no diarrhea/loose stools Genitourinary: no dysuria or no urinary frequency Neurologic: no dizziness and no headache(s) Psychiatric: no depression and no anxiety Physical Exam Constitutional: + well hydrated; no acute distress Elderly man Eyes: PERRL, conjunctivae normal, anicteric sclerae ENMT: external ear and nose normal, oropharynx normal Respiratory: normal respiratory effort; no respiratory distress On 2 L/min nasal oxygen. Scattered rhonchi Cardiovascular: Rate/Rhythm: regular rhythm and + tachycardic S1-S2 Gastrointestinal (Abdomen): normal bowel sounds, soft, nontender, no hepatosplenomegaly Musculoskeletal: No pedal edema Neurologic: PERRL, EOMI, accommodation nl, no face palsy, no dysarthria Psychiatric: A+Ox3, euthymic affect Genitourinary: no CVA tenderness Results & Data Results & Data ([facility]) Vital Signs (Past 12 Hours) Vital Signs Temp Pulse Pulse Resp BP Pulse Ox 11/07/20 08:00 108 H 11/07/20 06:45 36.7 C 105 H 17 157/73 H 94 11/07/20 03:41 37.0 C 96 H 16 129/66 94 11/07/20 00:00 117 H 11/06/20 23:21 102 H 20 94 Laboratory Results Abnormal lab results 11/06/20 11/06/20 11/06/20 Range/Units 12:27 16:06 17:20 RBC (4.7-6.1) M/uL Hgb (14.0-18.0) g/dL Hct (42-52) % RDW Std Deviation (36.4-46.3) fL Chloride (98-107) mmol/L Glucose (70-99) mg/dl POC Glucose 194 H (70-99) mg/dl Lactate 3.1 H* (0.4-2.0) mmol/L Calcium (8.5-10.1) mg/dl Total Protein (6.4-8.2) gm/dl Albumin (3.4-5.0) gm/dl Entero/Rhino (PCR) DETECTED A* (NotDetected) 11/06/20 11/06/20 11/06/20 Range/Units 18:16 20:42 20:50 RBC (4.7-6.1) M/uL Hgb (14.0-18.0) g/dL Hct (42-52) % RDW Std Deviation (36.4-46.3) fL Chloride (98-107) mmol/L Glucose (70-99) mg/dl POC Glucose 211 H (70-99) mg/dl Lactate 3.0 H* 2.2 H* (0.4-2.0) mmol/L Calcium (8.5-10.1) mg/dl Total Protein (6.4-8.2) gm/dl Albumin (3.4-5.0) gm/dl Entero/Rhino (PCR) (NotDetected) 11/07/20 11/07/20 11/07/20 Range/Units 06:21 06:21 07:11 RBC 4.33 L (4.7-6.1) M/uL Hgb 13.4 L (14.0-18.0) g/dL Hct 40.0 L (42-52) % RDW Std Deviation 47.0 H (36.4-46.3) fL Chloride 111 H (98-107) mmol/L Glucose 172 H (70-99) mg/dl POC Glucose 174 H (70-99) mg/dl Lactate (0.4-2.0) mmol/L Calcium 7.9 L (8.5-10.1) mg/dl Total Protein 6.2 L D (6.4-8.2) gm/dl Albumin 2.8 L (3.4-5.0) gm/dl Entero/Rhino (PCR) (NotDetected) 11/07/20 Range/Units 11:14 RBC (4.7-6.1) M/uL Hgb (14.0-18.0) g/dL Hct (42-52) % RDW Std Deviation (36.4-46.3) fL Chloride (98-107) mmol/L Glucose (70-99) mg/dl POC Glucose 190 H (70-99) mg/dl Lactate (0.4-2.0) mmol/L Calcium (8.5-10.1) mg/dl Total Protein (6.4-8.2) gm/dl Albumin (3.4-5.0) gm/dl Entero/Rhino (PCR) (NotDetected)
[2020-11-07] MEDS ORDERED: LORATADINE 10 MG TAB PO STA (10:58)
[2020-11-07] MEDS ORDERED: PIPERACILL/TAZOBAC CONSULT ACTIVE PRN (13:06)
--- NOTE | 2020-11-07 13:25 | Pulmonary Consultation ---
Date of Consultation November 07, 2020 Assessment & Plan (1) Tracheobronchomalacia: (2) Shortness of breath: (3) URI (upper respiratory infection): (4) Cough: (5) History of pulmonary embolism: (6) Acute respiratory failure with hypoxia: CT chest 11/06/2020 personally reviewed: Motion degraded study, no clear pulmonary infiltrate appreciated There is collapse all bilateral main bronchi, this is most likely an expiratory film No mediastinal lymphadenopathy --Shortness of breath with cough with acute hypoxic respiratory failure Procalcitonin negative COVID-19 PCR negative Pulmonary bio fire positive for entero-/rhinovirus CT scan does not show any pulmonary infiltrate. 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 It may contain grammatical, syntax or spelling errors.Any formal questions or concerns about the content, text or information contained within the body of this dictation should be directly addressed to the provider for clarification. History of Present Illness Attending Physician: Angelica Venegas MD History of Present Illness 75-year-old male past medical history of diabetes type 2, CKD 3, hypertension, CVA s/p left hemiplegia, PE on Xarelto, history of bladder cancer presented to the hospital with complaints of fever and cough going on approximately 4 days. He said that he has cough but is not able to bring up any phlegm. No hemoptysis. Denies any chest pain. No dysuria, no diarrhea Patient's with similar complaints. No recent travel history. 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, social alcohol, denies any illicit drug use Allergies Allergy/AdvReac Type Severity Reaction Status Date / Time Ntfojqh-Paj-[id number] Reductase AdvReac Severe MUSCLE Verified 11/06/20 10:43 Inhibitor CRAMPS lactose AdvReac Intermediate GI SYMPTOMS Verified 11/06/20 10:43 Home Medications Medication Instructions Recorded Confirmed Type ezetimibe 10 mg tablet (Zetia) 10 mg PO QDD 12/17/17 11/06/20 History levetiracetam 750 mg tablet 1,500 mg PO AMHS 12/17/17 11/06/20 History (Keppra) metformin 500 mg tablet 500 mg PO BIDM 12/17/17 11/06/20 History lisinopril 20 mg tablet (Prinivil) 20 mg PO AMHS 09/06/18 11/06/20 History amlodipine 5 mg tablet (Norvasc) 5 mg PO QAM 01/10/20 11/06/20 History rivaroxaban 20 mg tablet (Xarelto) 20 mg PO QDD 01/10/20 11/06/20 History dicyclomine 10 mg capsule 10 mg PO BID PRN 11/06/20 11/06/20 History fluticasone propionate 50 1 spray INTRANASAL HS 11/06/20 11/06/20 History mcg/actuation nasal spray,suspension (Flonase Allergy Relief) tamsulosin 0.4 mg capsule (Flomax) 0.8 mg PO HS 11/06/20 11/06/20 History Patient History Medical History (Updated 11/07/20 @ 13:24 by Vanessa Peterson MD) Bile leak, postoperative After lap carlotta 08/20, had subsequent ERCP with stent placement, stent removed 09/30. Bladder tumor Noted incidentally on CT 09/16/18. Patient to ED on 09/29 with hematuria. DM type 2 (diabetes mellitus, type 2) A1c 6.3 07/2018 History of pulmonary embolism [facility] 09/06. Discharged on Xarelto. History of stroke 5 years ago, residual CANNOT USE LEFT ARM - IN SLING; LEFT LEG WEAK - USES YEN WALKER HTN (hypertension) Left hemiparesis On anticoagulant therapy [facility]RENTLY [facility] 09/[facility]/18 DUE TO HEMATURIA. PT TO F/U 10/02/18 WITH PCP REGARDING HIS XARELTO. PAD (peripheral artery disease) Seizure disorder 2/2 CVA. On Keppra. Surgical History (Updated 11/06/20 @ 17:31 by Carolyn Waldrop PA-C) H/O umbilical hernia repair History of appendectomy History of cholecystectomy Due to gangrenous gallbladder. Complicated by bile leak, had subsequent ERCP with stent placement on 08/21. To [facility] ED 09/16 with sepsis. CARA drain removed, IV ABX. History of colonoscopy History of cystoscopy History of right common carotid artery stent placement S/P ERCP 09/30 for stent removal, [facility]. Family History Mother Diabetes Father Stroke Social History Smoking Status: Former smoker Tobacco Type: Cigarettes Second Hand Exposure: No; Do You Dip or Chew Tobacco: No; Tobacco Cessation Education Requested by Patient: No Hx Alcohol Use: No Hx Substance Use: No Preferred Language: Kinyarwanda Communication Ability: Effective Ironer Sock Required: No Beliefs That Will Affect Care: None marital status: Current Living Situation: Spouse Other Information That Helps Us Care for You: No Feels Safe at Home: Yes Safety Concerns: Feels Safe At This Time Assistive Devices: Oxygen - Continuous Review of Systems Review of Systems: All systems reviewed & are unremarkable except as noted in Subjective Physical Exam Physical Exam: Constitutional: No acute distress HEENT: EOMI, PERRLA Respiratory system: Decreased air entry bilaterally, minimal rhonchi, mild expiratory wheeze, no crackles CVS: S1-S2 positive, no murmurs or gallops Abdomen: Soft, nontender, nondistended, positive bowel sounds x4 Extremities: +2 pulses bilaterally radialis/ dorsalis pedis, no cyanosis, +1 pitting edema left lower extremity, left upper and lower extremity hemiplegia Neuro: Awake alert oriented x3 Psych: Normal mood and affect G/U: No Cmguire Skin: no rashes, warm and dry Lymphatic: no cervical or axillary lymphadenopathy Results & Data Results & Data ([facility]) Vital Signs (Past 12 Hours) Vital Signs Temp Pulse Pulse Pulse Resp BP Pulse Ox 11/07/20 12:04 38.1 C H 116 H 18 147/72 H 91 11/07/20 10:56 106 H 93 11/07/20 08:00 108 H 11/07/20 06:45 36.7 C 105 H 17 157/73 H 94 11/07/20 03:41 37.0 C 96 H 16 129/66 94 11/07/20 06:21 11/07/20 06:21 PG Care Time/CCT Total # of Minutes Spent Total Time Spent with Patient: Total time spent is greater than 50% in coordination of care (as documented) at patient's floor/unit and/or counseling patient: Coding Level of Care Code 27754 Initial Inpt Care Lvl 3 Diagnoses URI (upper respiratory infection) J06.9 History of pulmonary embolism Z86.711 Cough R05 Shortness of breath R06.02 Tracheobronchomalacia J39.8 Acute respiratory failure with hypoxia J96.01
[2020-11-07] MEDS: ALBUT/IPRATROP 3MG/0.5MG NEB 3 ML VIAL NEB SCH ×2 (14:59→22:12)
[2020-11-07] MEDS: RIVAROXABAN 20 MG TAB PO SCH (17:12)
[2020-11-07] MEDS: EZETIMIBE 10 MG TABLET PO SCH (17:15)
[2020-11-07] MEDS: FLUTICASONE PROPIONATE NA SPR 16 GM BTL NAE SCH (20:23)
[2020-11-07] MEDS: TAMSULOSIN HCL 0.4 MG CAP PO SCH (21:35)
[2020-11-07] MEDS: guaiFENesin 600 MG TABCR PO SCH (21:35)
[2020-11-08] MEDS: PIPERACILLIN/TAZOBACTAM 3.375 GM in DEXTROSE 5% 100 ML IV SCH (06:10)
[2020-11-08] MEDS: ALBUT/IPRATROP 3MG/0.5MG NEB 3 ML VIAL NEB SCH ×3 (07:23→22:09)
[2020-11-08 07:38] LABS: Estimated Average Glucose 166 mg/dl; Hemoglobin A1C 7.4 % (4.5-5.6)
[2020-11-08 07:44] LABS: Hematocrit (blood only) 39.5 % (42-52); Hemoglobin 13.3 g/dL (14.0-18.0); Mean Corpuscular Hemoglobin 31.1 pg (25-34); Mean Corpuscular Hgb Conc 33.7 g/dL (32-36); Mean Corpuscular Volume 92.5 fL (80-100); Mean Platelet Volume 10.1 fL (7.4-10.4); Platelet Count 227 K/uL (130-400); RDW Coefficient of Variation 13.7 % (11.5-14.5); Red Blood Count 4.27 M/uL (4.7-6.1); White Blood Count 7.55 K/uL (4.8-10.8)
[2020-11-08 08:02] LABS: BUN Creatinine Ratio 13.2 (10-20); Calcium 8.3 mg/dl (8.5-10.1); Potassium 3.3 mmol/L (3.5-5.1)
[2020-11-08] MEDS: INSULIN ASPART 100 UNITS/ML 3 ML PEN SC SCH ×4 (08:07→21:53)
[2020-11-08] MEDS: UMECLIDINIUM BROMIDE 62.5MCG/BLISTER 7 PUFFS/INHALER INH SCH (08:08)
[2020-11-08 08:52] LABS: Magnesium 1.8 mg/dl (1.8-2.4); Phosphorus 2.3 mg/dl (2.5-4.9)
[2020-11-08] MEDS: amLODIPine BESYLATE 5 MG TAB PO SCH (10:00)
[2020-11-08] MEDS: lisinopril 20 MG TAB PO SCH (10:01)
[2020-11-08] MEDS: levETIRAcetam 500 MG TAB PO SCH ×2 (10:01→21:52)
[2020-11-08] MEDS: LORATADINE 10 MG TAB PO SCH (10:02)
[2020-11-08] MEDS: guaiFENesin 600 MG TABCR PO SCH ×2 (10:03→21:53)
--- NOTE | 2020-11-08 10:41 | Pulmonology Progress Note ---
Date of Service November 08, 2020 Assessment & Plan (1) Acute respiratory failure with hypoxia: (2) Tracheobronchomalacia: (3) Shortness of breath: (4) Cough: (5) Fever of unknown origin: Plan: Impression: 75-year-old male with complex medical history admitted with fevers cough and shortness of breath. CT scanning was unrevealing for any acute pulmonary process. Recommendations: 1. Cough: Unclear if this is related to the patient's tracheobronchial malacia. There is no airspace opacity. Would consider SHANNON inhibitor cough as the patient is taking lisinopril and discontinuation of this medication and alternative antihypertensives would be appropriate. 2. Shortness of breath: Suspect multifactorial. Blood pressure control recommended. May need to assess the patient for supplemental oxygen prior to dismissal from the hospital. 3. Reported fevers: The patient is not been febrile throughout his hospitalization and his white count is normal and his procalcitonin is negative. I see no evidence of pneumonia on his CT scan. There is no indication for antimicrobial agents from a pulmonary standpoint. Would defer antimicrobials to the patient's primary admitting service. 4. Tracheobronchial malacia identified on CT scan. No indication for br onchoscopy. Avoid steroids if possible. Consideration for nocturnal CPAP or BiPAP may be appropriate if the patient can tolerate. Outpatient PFTs and polysomnography may be appropriate. 5. Hypoxemia: Continue to wean oxygen as tolerated. Maintain oxygen saturation at or above 88%. Patient's pulmonary issues appear relatively stable currently. Pulmonary will sign off at this point time. Feel free to contact us if we can be of additional assistance Admission and Anticipated Discharge Date Admission Date: November 06, 2020 Subjective Patient seen and examined. 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 The patient reports that he feels poorly. His cough is better. He is not really producing phlegm. No wheezing. No chest pain or palpitations. Review of Systems Review of Systems: Refer to admission H&P Physical Exam Physical Exam: Constitutional: No acute distress HEENT: EOMI, PERRLA Respiratory system: Decreased air entry bilaterally, minimal rhonchi, mild expiratory wheeze, no crackles CVS: S1-S2 positive, no murmurs or gallops Abdomen: Soft, nontender, nondistended, positive bowel sounds x4 Extremities: +2 pulses bilaterally radialis/ dorsalis pedis, no cyanosis, +1 pitting edema left lower extremity, left upper and lower extremity hemiplegia Neuro: Awake alert oriented x3 Psych: Normal mood and affect G/U: No Mcguire Skin: no rashes, warm and dry Lymphatic: no cervical or axillary lymphadenopathy Results & Data Results & Data ([facility]) Vital Signs (Past 12 Hours) Vital Signs Temp Pulse Pulse Resp BP Pulse Ox 11/08/20 07:43 36.7 C 98 H 17 156/77 H 92 11/08/20 07:23 97 H 18 91 11/08/20 03:25 36.8 C 98 H 16 132/80 93 11/07/20 23:52 101 H 11/07/20 23:07 36.6 C 108 H 18 161/73 H 93 Laboratory Results 11/08/20 06:54 11/08/20 06:54 Microbiology 11/06/20 10:01 Blood Aerobic Blood Culture - Preliminary No growth in Aerobic bottle after 24 hours. 11/06/20 10:01 Blood Anaerobic Blood Culture - Preliminary No growth in Anaerobic bottle after 24 hours. 11/06/20 09:45 Blood Aerobic Blood Culture - Preliminary No growth in Aerobic bottle after 24 hours. 11/06/20 09:45 Blood Anaerobic Blood Culture - Preliminary No growth in Anaerobic bottle after 24 hours. PG Care Time/CCT Total # of Minutes Spent Total Time Spent with Patient: Total time spent is greater than 50% in coordination of care (as documented) at patient's floor/unit and/or counseling patient: Coding Level of Care Code 39142 Subseq Hosp Care Lvl 3 Diagnoses Acute respiratory failure with hypoxia J96.01 Tracheobronchomalacia J39.8 Shortness of breath R06.02 Cough R05 Fever of unknown origin R50.9
--- NOTE | 2020-11-08 12:21 | Hospitalist Progress Note ---
Date of Service November 08, 2020 Assessment & Plan (1) Sepsis: (2) URI (upper respiratory infection): Plan: 75yo M with a PMH of type 2 diabetes, CKD 3, hypertension, left hemiparesis from history of right MCA stroke, history of pulmonary embolism on Xarelto, seizure disorder, history of bladder cancer and other medical problems listed below who presents with fever, cough and malaise x 4 days and meets sepsis criteria. HR 119, T 37.7 C, WBC 17, lactate 4.4--> 3.1-->2.2, procal normal CXR No acute pulmonary process UA without evidence of infection Covid test was negative. 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 Oven Operator evaluation appreciated No signs of obvious bacterial infection. Antibiotics discontinued Wean off oxygen. Incentive spirometry and flutter (3) Abdominal pain: Plan: Diffuse TTP on physical exam on admission. Abdominal tenderness resolved. CT abdomen pelvis did not reveal free of any acute findings (4) History of pulmonary embolism: Plan: Continue Xarelto (5) Seizure disorder: Plan: Last known seizure 4 years ago. Continue Keppra (6) HTN (hypertension): Plan: Continue amlodipine Pulm recommend changing lisinopril to alternative antihypertensive. Lisinopril discontinued. Losartan started (7) DM type 2 (diabetes mellitus, type 2): Plan: Stopped taking Metformin a month ago due to side effect of diarrhea Diabetes education consult, likely to need other oral medication Repeat A1c 7.4 SSI while in-patient BSG AC HS (8) Left hemiparesis: Plan: Residual deficit from remote right MCA stroke PT/OT evaluation (9) Malignant neoplasm of bladder: Plan: Following guidelines for surveillance with noninvasive bladder cancers. [place] [facility] [place] Ppx: Xarelto Code status: DNR PCP: [facility] Admission and Anticipated Discharge Date Admission Date: November 06, 2020 Subjective 75yo M with a PMH of type 2 diabetes, CKD 3, hypertension, left hemiparesis from history of right MCA stroke, history of pulmonary embolism on Xarelto, seizure disorder, history of bladder cancer and other medical problems listed below who presents with fever, cough and malaise x 4 days Being managed for sepsis secondary to upper respiratory infection. Patient seen and examined this morning. Reports feeling better Still reports cough, congestion and sore throat No dyspnea. Review of Systems Constitutional: + fatigue; no fever and no chills Eyes: no problem reported Ear, Nose, Mouth, Throat: + nasal congestion and + sore throat Respiratory: + cough and + dyspnea Cardiovascular: no chest pain, no chest pain at rest, no orthopnea, no palpitations and no lightheadedness Gastrointestinal: no abdominal pain, no nausea, no vomiting and no diarrhea/loose stools Genitourinary: no dysuria or no urinary frequency Neurologic: no dizziness and no headache(s) Psychiatric: no depression and no anxiety Physical Exam Constitutional: + well hydrated; no acute distress Eyes: PERRL, conjunctivae normal, anicteric sclerae ENMT: external ear and nose normal, oropharynx normal Respiratory: normal respiratory effort; no respiratory distress On nasal cannula 2 L/min Diminished breath sounds, mild expiratory wheeze Cardiovascular: Rate/Rhythm: regular rate and regular rhythm S1-S2 Gastrointestinal (Abdomen): normal bowel sounds, soft, nontender, no hepatosplenomegaly Neurologic: PERRL, EOMI, accommodation nl, no face palsy, no dysarthria Left hemiparesis (chronic) Psychiatric: A+Ox3, euthymic affect Genitourinary: no CVA tenderness Results & Data Results & Data ([facility]) Vital Signs (Past 12 Hours) Vital Signs Temp Pulse Resp BP Pulse Ox 11/08/20 10:50 36.8 C 99 H 22 157/79 H 91 11/08/20 07:43 36.7 C 98 H 17 156/77 H 92 11/08/20 07:23 97 H 18 91 11/08/20 03:25 36.8 C 98 H 16 132/80 93 Laboratory Results Abnormal lab results 11/07/20 11/07/20 11/07/20 Range/Units 06:21 16:22 20:12 RBC (4.7-6.1) M/uL Hgb (14.0-18.0) g/dL Hct (42-52) % Potassium (3.5-5.1) mmol/L Chloride (98-107) mmol/L Glucose (70-99) mg/dl POC Glucose 152 H 192 H (70-99) mg/dl Hemoglobin A1c 7.4 H (4.5-5.6) % Calcium (8.5-10.1) mg/dl Phosphorus (2.5-4.9) mg/dl 11/08/20 11/08/20 11/08/20 Range/Units 06:54 06:54 06:54 RBC 4.27 L (4.7-6.1) M/uL Hgb 13.3 L (14.0-18.0) g/dL Hct 39.5 L (42-52) % Potassium 3.3 L (3.5-5.1) mmol/L Chloride 108 H (98-107) mmol/L Glucose 158 H (70-99) mg/dl POC Glucose (70-99) mg/dl Hemoglobin A1c (4.5-5.6) % Calcium 8.3 L (8.5-10.1) mg/dl Phosphorus 2.3 L (2.5-4.9) mg/dl 11/08/20 Range/Units 11:22 RBC (4.7-6.1) M/uL Hgb (14.0-18.0) g/dL Hct (42-52) % Potassium (3.5-5.1) mmol/L Chloride (98-107) mmol/L Glucose (70-99) mg/dl POC Glucose 169 H (70-99) mg/dl Hemoglobin A1c (4.5-5.6) % Calcium (8.5-10.1) mg/dl Phosphorus (2.5-4.9) mg/dl
[2020-11-08] MEDS ORDERED: POTASSIUM CHLORIDE PWD 20 MEQ PACK PO STA (14:06)
[2020-11-08] MEDS: EZETIMIBE 10 MG TABLET PO SCH (17:27)
[2020-11-08] MEDS: RIVAROXABAN 20 MG TAB PO SCH (17:28)
[2020-11-08] MEDS: TAMSULOSIN HCL 0.4 MG CAP PO SCH (21:52)
[2020-11-08] MEDS: FLUTICASONE PROPIONATE NA SPR 16 GM BTL NAE SCH (21:52)
[2020-11-08] MEDS: LOSARTAN POTASSIUM 50 MG TAB PO SCH (21:53)
[2020-11-09 06:38] LABS: Hematocrit (blood only) 40.3 % (42-52); Hemoglobin 13.8 g/dL (14.0-18.0); Mean Corpuscular Hemoglobin 31.7 pg (25-34); Mean Corpuscular Hgb Conc 34.2 g/dL (32-36); Mean Corpuscular Volume 92.6 fL (80-100); Mean Platelet Volume 10.1 fL (7.4-10.4); Platelet Count 269 K/uL (130-400); RDW Coefficient of Variation 13.5 % (11.5-14.5); RDW Standard Deviation 46.1 fL (36.4-46.3); Red Blood Count 4.35 M/uL (4.7-6.1); White Blood Count 6.46 K/uL (4.8-10.8)
[2020-11-09] MEDS: ALBUT/IPRATROP 3MG/0.5MG NEB 3 ML VIAL NEB SCH ×3 (07:02→21:49)
[2020-11-09 07:17] LABS: BUN Creatinine Ratio 15.3 (10-20); Calcium 8.4 mg/dl (8.5-10.1); Creatinine Clr Calc Pharmacy 86.4 ml/min; Est GFR (African American) 104.7 ml/min; Est GFR (Non-African American) 90.4 ml/min; Magnesium 2.1 mg/dl (1.8-2.4); Phosphorus 2.7 mg/dl (2.5-4.9); Potassium 3.2 mmol/L (3.5-5.1)
[2020-11-09] MEDS: amLODIPine BESYLATE 5 MG TAB PO SCH (08:44)
[2020-11-09] MEDS: LORATADINE 10 MG TAB PO SCH (08:44)
[2020-11-09] MEDS: levETIRAcetam ORAL SOLN 100MG/ML PO SCH ×2 (08:44→21:05)
[2020-11-09] MEDS: INSULIN ASPART 100 UNITS/ML 3 ML PEN SC SCH ×4 (08:44→21:13)
[2020-11-09] MEDS: guaiFENesin 600 MG TABCR PO SCH ×2 (08:45→21:04)
[2020-11-09] MEDS: UMECLIDINIUM BROMIDE 62.5MCG/BLISTER 7 PUFFS/INHALER INH SCH (08:45)
[2020-11-09] MEDS: LOSARTAN POTASSIUM 50 MG TAB PO SCH ×2 (08:45→21:05)
--- NOTE | 2020-11-09 11:17 | Hospitalist Progress Note ---
Date of Service November 09, 2020 Assessment & Plan (1) Sepsis: (2) URI (upper respiratory infection): Plan: 75yo M with a PMH of type 2 diabetes, CKD 3, hypertension, left hemiparesis from history of right MCA stroke, history of pulmonary embolism on Xarelto, seizure disorder, history of bladder cancer and other medical problems listed below who presents with fever, cough and malaise x 4 days and meets sepsis criteria. HR 119, T 37.7 C, WBC 17, lactate 4.4--> 3.1-->2.2, procal normal CXR No acute pulmonary process UA without evidence of infection Covid test was negative. 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 Back Wedger evaluation appreciated. Patient will need outpatient PFTs and polysomnography. We will get nocturnal pulse oximetry today. No signs of obvious bacterial infection. Antibiotics discontinued Currently requiring 2 L/min nasal oxygen. Wean as tolerated Continue incentive spirometry and flutter Will need 2 step prior to discharge (3) Abdominal pain: Plan: Diffuse TTP on physical exam on admission. Abdominal tenderness resolved. CT abdomen pelvis did not reveal free of any acute findings (4) History of pulmonary embolism: Plan: Continue Xarelto (5) Seizure disorder: Plan: Last known seizure 4 years ago. Continue Keppra (6) HTN (hypertension): Plan: Continue amlodipine Pulm recommend changing lisinopril to alternative antihypertensive with concern for ACEI likely contributing to cough Lisinopril discontinued and switched to Losartan (7) DM type 2 (diabetes mellitus, type 2): Plan: Stopped taking Metformin a month ago due to side effect of diarrhea Diabetes education consult, likely to need other oral medication Repeat A1c 7.4 SSI while in-patient BSG AC HS (8) Left hemiparesis: Plan: Residual deficit from remote right MCA stroke Patient reports using a hemiwalker at home Awaiting PT/OT evaluation. If patient ends up needing oxygen to go home, he will need education how to ambulate and manage oxygen/tubing to minimize fall risk (9) Malignant neoplasm of bladder: Plan: Following guidelines for surveillance with noninvasive bladder cancers. Follows with Dr. Harry [facility] [place]rology DVT Ppx: Xarelto Code status: DNR PCP: [facility] Admission and Anticipated Discharge Date Admission Date: November 06, 2020 Subjective 75yo M with a PMH of type 2 diabetes, CKD 3, hypertension, left hemiparesis from history of right MCA stroke, history of pulmonary embolism on Xarelto, seizure disorder, history of bladder cancer and other medical problems listed below who presents with fever, cough and malaise x 4 days Patient seen and examined this morning. Reports feeling better Still reports cough, congestion and sore throat No dyspnea. Review of Systems Constitutional: + fatigue; no fever and no chills Eyes: no problem reported Ear, Nose, Mouth, Throat: + nasal congestion; no sore throat Respiratory: + cough; no dyspnea Cardiovascular: no chest pain, no chest pain at rest, no orthopnea, no palpitations and no lightheadedness Gastrointestinal: no abdominal pain, no nausea, no vomiting and no diarrhea/loose stools Genitourinary: no dysuria or no urinary frequency Neurologic: no dizziness and no headache(s) Chronic left sided weakness Psychiatric: no depression and no anxiety Physical Exam Constitutional: + well hydrated; no acute distress Eyes: PERRL, conjunctivae normal, anicteric sclerae ENMT: external ear and nose normal, oropharynx normal Respiratory: normal respiratory effort; no respiratory distress Scattered rhonchi Cardiovascular: Rate/Rhythm: regular rate and regular rhythm S1 S2 Gastrointestinal (Abdomen): normal bowel sounds, soft, nontender, no hepatosplenomegaly Neurologic: PERRL, EOMI, accommodation nl, no face palsy, no dysarthria Left hemiparesis Psychiatric: A+Ox3, euthymic affect Genitourinary: no CVA tenderness Results & Data Results & Data ([facility]) Vital Signs (Past 12 Hours) Vital Signs Temp Pulse Pulse Resp BP Pulse Ox 11/09/20 07:53 36.6 C 99 H 20 135/73 89 L 11/09/20 07:03 96 H 18 92 11/09/20 03:49 36.8 C 97 H 22 144/73 H 97 11/09/20 00:00 103 H 11/08/20 23:27 37.2 C 107 H 22 155/53 H 90 Laboratory Results Abnormal lab results 11/08/20 11/08/20 11/09/20 Range/Units 16:36 20:00 05:56 RBC 4.35 L (4.7-6.1) M/uL Hgb 13.8 L (14.0-18.0) g/dL Hct 40.3 L (42-52) % Potassium (3.5-5.1) mmol/L Glucose (70-99) mg/dl POC Glucose 178 H 189 H (70-99) mg/dl Calcium (8.5-10.1) mg/dl 11/09/20 11/09/20 11/09/20 Range/Units 05:56 07:26 11:22 RBC (4.7-6.1) M/uL Hgb (14.0-18.0) g/dL Hct (42-52) % Potassium 3.2 L (3.5-5.1) mmol/L Glucose 167 H (70-99) mg/dl POC Glucose 165 H 198 H (70-99) mg/dl Calcium 8.4 L (8.5-10.1) mg/dl
[2020-11-09] MEDS ORDERED: POTASSIUM CHLORIDE CRTAB 20 MEQ TABCR PO STA (12:49)
[2020-11-09] MEDS: RIVAROXABAN 20 MG TAB PO SCH (17:04)
[2020-11-09] MEDS: EZETIMIBE 10 MG TABLET PO SCH (17:04)
[2020-11-09] MEDS: FLUTICASONE PROPIONATE NA SPR 16 GM BTL NAE SCH (21:03)
[2020-11-09] MEDS: TAMSULOSIN HCL 0.4 MG CAP PO SCH (21:04)
[2020-11-10] MEDS: ALBUT/IPRATROP 3MG/0.5MG NEB 3 ML VIAL NEB SCH (07:11)
[2020-11-10] MEDS: guaiFENesin 600 MG TABCR PO SCH ×2 (08:20→20:46)
[2020-11-10] MEDS: amLODIPine BESYLATE 5 MG TAB PO SCH (08:20)
[2020-11-10] MEDS: levETIRAcetam ORAL SOLN 100MG/ML PO SCH ×2 (08:20→20:47)
[2020-11-10] MEDS: LORATADINE 10 MG TAB PO SCH (08:20)
[2020-11-10] MEDS: UMECLIDINIUM BROMIDE 62.5MCG/BLISTER 7 PUFFS/INHALER INH SCH (08:20)
[2020-11-10] MEDS: LOSARTAN POTASSIUM 50 MG TAB PO SCH ×2 (08:20→20:47)
[2020-11-10] MEDS: INSULIN ASPART 100 UNITS/ML 3 ML PEN SC SCH ×5 (08:22→20:52)
[2020-11-10] MEDS ORDERED: POTASSIUM CHLORIDE 10 MEQ TABCR PO STA (08:35)
[2020-11-10] MEDS ORDERED: POTASSIUM CHLORIDE CRTAB 20 MEQ TABCR PO STA (08:35)
[2020-11-10 08:46] LABS: Hematocrit (blood only) 44.3 % (42-52); Hemoglobin 15.2 g/dL (14.0-18.0); Mean Corpuscular Hemoglobin 31.9 pg (25-34); Mean Corpuscular Hgb Conc 34.3 g/dL (32-36); Mean Corpuscular Volume 93.1 fL (80-100); Mean Platelet Volume 10.1 fL (7.4-10.4); Platelet Count 309 K/uL (130-400); RDW Coefficient of Variation 13.4 % (11.5-14.5); RDW Standard Deviation 45.8 fL (36.4-46.3); Red Blood Count 4.76 M/uL (4.7-6.1); White Blood Count 6.71 K/uL (4.8-10.8)
[2020-11-10 09:19] LABS: Calcium 8.9 mg/dl (8.5-10.1); Creatinine Clr Calc Pharmacy 86.4 ml/min; Est GFR (African American) 104.7 ml/min; Est GFR (Non-African American) 90.4 ml/min; Magnesium 1.7 mg/dl (1.8-2.4); Phosphorus 2.5 mg/dl (2.5-4.9); Potassium 3.6 mmol/L (3.5-5.1)
[2020-11-10] MEDS ORDERED: MAGNESIUM SULFATE / D5W 1 GM/100 ML BAG IV ONE (14:45)
[2020-11-10] MEDS: RIVAROXABAN 20 MG TAB PO SCH (16:55)
[2020-11-10] MEDS: EZETIMIBE 10 MG TABLET PO SCH (16:55)
--- NOTE | 2020-11-10 19:03 | Hospitalist Progress Note ---
Date of Service November 10, 2020 Assessment & Plan (1) Sepsis: (2) URI (upper respiratory infection): Plan: 75yo M with a PMH of type 2 diabetes, CKD 3, hypertension, left hemiparesis from history of right MCA stroke, history of pulmonary embolism on Xarelto, seizure disorder, history of bladder cancer and other medical problems listed below who presents with fever, cough and malaise x 4 days and meets sepsis criteria. HR 119, T 37.7 C, WBC 17, lactate 4.4--> 3.1-->2.2, procal normal CXR No acute pulmonary process UA without evidence of infection Covid test was negative. 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 Color Control Supervisor evaluation appreciated. Patient will need outpatient PFTs and polysomnography. Nocturnal pulse oximetry done last night and has per resp update report that pt did not require any ooxygen No signs of obvious bacterial infection, Antibiotics discontinued Will wean off oxygen Wean as tolerated Continue incentive spirometry and flutter Will need 2 step prior to discharge (3) Abdominal pain: Plan: Diffuse TTP on physical exam on admission. Abdominal tenderness resolved. CT abdomen pelvis did not reveal free of any acute findings (4) History of pulmonary embolism: Plan: Continue Xarelto (5) Seizure disorder: Plan: Last known seizure 4 years ago. Continue Keppra (6) HTN (hypertension): Plan: Continue amlodipine Pulm recommend changing lisinopril to alternative antihypertensive with concern for ACEI likely contributing to cough Lisinopril discontinued and switched to Losartan (7) DM type 2 (diabetes mellitus, type 2): Plan: Stopped taking Metformin a month ago due to side effect of diarrhea Diabetes education consult, likely to need other oral medication Repeat A1c 7.4 SSI while in-patient BSG AC HS (8) Left hemiparesis: Plan: Residual deficit from remote right MCA stroke Patient reports using a hemiwalker at home Awaiting PT/OT evaluation. If patient ends up needing oxygen to go home, he will need education how to ambulate and manage oxygen/tubing to minimize fall risk (9) Malignant neoplasm of bladder: Plan: Following guidelines for surveillance with noninvasive bladder cancers. Follows with Dr. Harry [facility] [place] urology DVT Ppx: Xarelto Code status: DNR PCP: Pilgram Admission and Anticipated Discharge Date Admission Date: November 06, 2020 Subjective Pt was seen and examined for SOB Lying in bed with no distress Pt said that his breathing improves He had an overnight nocturnal pulse oximetry done last night As per Resp therapist the update report that pt did not require any oxygen supplement at night He continues to cough and have a difficult time to bring it up Denies any chest pain, palpitation, dizziness and SOB Physical Exam Physical Exam: General- No acute distress Head- atraumatic Eyes- PERRL, EOMI, ENT- oropharynx clear Neck- supple, no JVD Lungs- +coarse BS Heart- regular rhythm; no murmur Abdomen- normal bowel sounds, soft, nontender Extremities- no calf tenderness Neuro- alert, oriented x 3; PERRL, EOMI; no facial palsy; no dysarthria Skin- warm & dry Results & Data Results & Data ([facility]) Vital Signs (Past 12 Hours) Vital Signs Temp Pulse Resp BP Pulse Ox 11/10/20 15:17 36.5 C 95 H 19 129/76 90 11/10/20 11:06 36.8 C 93 H 18 129/72 94 11/10/20 07:48 35.8 C L 104 H 20 159/73 H 91 11/10/20 07:11 87 17 93
[2020-11-10] MEDS: FLUTICASONE PROPIONATE NA SPR 16 GM BTL NAE SCH (20:46)
[2020-11-10] MEDS: TAMSULOSIN HCL 0.4 MG CAP PO SCH (20:48)
[2020-11-11] MEDS: INSULIN ASPART 100 UNITS/ML 3 ML PEN SC SCH ×4 (08:25→20:43)
[2020-11-11] MEDS: LORATADINE 10 MG TAB PO SCH (08:47)
[2020-11-11] MEDS: UMECLIDINIUM BROMIDE 62.5MCG/BLISTER 7 PUFFS/INHALER INH SCH (08:47)
[2020-11-11] MEDS: guaiFENesin 600 MG TABCR PO SCH ×2 (08:47→20:41)
[2020-11-11] MEDS: LOSARTAN POTASSIUM 50 MG TAB PO SCH ×2 (08:47→20:41)
[2020-11-11] MEDS: amLODIPine BESYLATE 5 MG TAB PO SCH (08:47)
[2020-11-11 10:08] LABS: BUN Creatinine Ratio 23.2 (10-20); Calcium 8.7 mg/dl (8.5-10.1); Creatinine Clr Calc Pharmacy 77.2 ml/min; Est GFR (Non-African American) 86.3 ml/min; Magnesium 1.9 mg/dl (1.8-2.4); Potassium 3.4 mmol/L (3.5-5.1)
[2020-11-11] MEDS: guaiFENesin SUGAR FREE 200 MG/10 ML UDC PO SCH ×2 (10:31→17:02)
[2020-11-11] MEDS: levETIRAcetam ORAL SOLN 100MG/ML PO SCH ×2 (10:32→20:43)
[2020-11-11] MEDS: EZETIMIBE 10 MG TABLET PO SCH (16:37)
[2020-11-11] MEDS: RIVAROXABAN 20 MG TAB PO SCH (16:37)
--- NOTE | 2020-11-11 16:48 | Hospitalist Progress Note ---
Date of Service November 11, 2020 Assessment & Plan (1) Sepsis: (2) URI (upper respiratory infection): Plan: 75yo M with a PMH of type 2 diabetes, CKD 3, hypertension, left hemiparesis from history of right MCA stroke, history of pulmonary embolism on Xarelto, seizure disorder, history of bladder cancer and other medical problems listed below who presents with fever, cough and malaise x 4 days and meets sepsis criteria. HR 119, T 37.7 C, WBC 17, lactate 4.4--> 3.1-->2.2, procal normal CXR No acute pulmonary process Covid test was negative. 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 Bridge Welder evaluation appreciated. Patient will need outpatient PFTs and polysomnography. Nocturnal pulse oximetry done Patient required treatment with nasal cannula at night No signs of obvious bacterial infection, Antibiotics discontinued Mucomyst and hypertonic saline added 2 step exercise done today and patient required 2 L nasal cannula with activity Continue incentive spirometry and flutter Continue monitor closely (3) Abdominal pain: Plan: Diffuse TTP on physical exam on admission. Abdominal tenderness resolved. CT abdomen pelvis did not reveal free of any acute findings (4) History of pulmonary embolism: Plan: Continue Xarelto (5) Seizure disorder: Plan: Last known seizure 4 years ago. Continue Keppra (6) HTN (hypertension): Plan: Continue amlodipine Pulm recommend changing lisinopril to alternative antihypertensive with concern for ACEI likely contributing to cough Lisinopril discontinued and switched to Losartan (7) DM type 2 (diabetes mellitus, type 2): Plan: Stopped taking Metformin a month ago due to side effect of diarrhea Diabetes education consult, likely to need other oral medication Repeat A1c 7.4 SSI while in-patient BSG AC HS (8) Left hemiparesis: Plan: Residual deficit from remote right MCA stroke Patient reports using a hemiwalker at home Awaiting PT/OT evaluation. If patient ends up needing oxygen to go home, he will need education how to ambulate and manage oxygen/tubing to minimize fall risk (9) Malignant neoplasm of bladder: Plan: Following guidelines for surveillance with noninvasive bladder cancers. [place] [facility] [place] Ppx: Xarelto Code status: DNR PCP: Emmanuel Disposition Possible discharge tomorrow Admission and Anticipated Discharge Date Admission Date: November 06, 2020 Subjective Pt was seen and examined for SOB Lying in bed with no distress with at bedside Pt said that his breathing improves and he feels better He said that the cough is getting loose and able to bring some phlegm up He is very anxious to go home but at bedside recommended to stay in the hospital until he is medically stable Denies any chest pain, palpitation, dizziness and SOB Physical Exam Physical Exam: General- No acute distress Head- atraumatic Eyes- PERRL, EOMI, ENT- oropharynx clear Neck- supple, no JVD Lungs- +coarse BS Heart- regular rhythm; no murmur Abdomen- normal bowel sounds, soft, nontender Extremities- no calf tenderness Neuro- alert, oriented x 3; PERRL, EOMI; no facial palsy; no dysarthria Skin- warm & dry Results & Data Results & Data ([facility]) Vital Signs (Past 12 Hours) Vital Signs Temp Pulse Pulse Pulse Pulse Pulse Resp 11/11/20 15:26 36.9 C 90 19 11/11/20 11:59 91 H 11/11/20 11:12 103 H 110 H 102 H 11/11/20 10:54 36.8 C 100 H 18 11/11/20 07:00 36.5 C 100 H 18 Resp Resp Resp BP Pulse Ox Pulse Ox Pulse Ox 11/11/20 15:26 107/67 95 11/11/20 11:59 11/11/20 11:12 20 20 20 94 91 11/11/20 10:54 132/69 90 11/11/20 07:00 158/71 H 95 Pulse Ox 11/11/20 15:26 11/11/20 11:59 11/11/20 11:12 86 L 11/11/20 10:54 11/11/20 07:00
[2020-11-11] MEDS: ALBUT/IPRATROP 3MG/0.5MG NEB 3 ML VIAL NEB PRN (19:53)
[2020-11-11] MEDS: ACETYLCYSTEINE 10% INHAL SOLN 4 ML **DISPENSED BY RESP. INH SCH (19:53)
[2020-11-11] MEDS: SODIUM CHLOR 7% 4 ML NEB NEB SCH (19:56)
[2020-11-11] MEDS: FLUTICASONE PROPIONATE NA SPR 16 GM BTL NAE SCH (20:40)
[2020-11-11] MEDS: TAMSULOSIN HCL 0.4 MG CAP PO SCH (20:42)
[2020-11-12] MEDS: guaiFENesin SUGAR FREE 200 MG/10 ML UDC PO SCH ×4 (03:18→16:51)
[2020-11-12] MEDS: ALBUT/IPRATROP 3MG/0.5MG NEB 3 ML VIAL NEB PRN (07:07)
[2020-11-12] MEDS: ACETYLCYSTEINE 10% INHAL SOLN 4 ML **DISPENSED BY RESP. INH SCH ×2 (07:07→20:11)
[2020-11-12] MEDS: SODIUM CHLOR 7% 4 ML NEB NEB SCH ×2 (07:08→20:11)
[2020-11-12 07:53] LABS: BUN Creatinine Ratio 25.2 (10-20); Calcium 8.9 mg/dl (8.5-10.1); Creatinine Clr Calc Pharmacy 67.5 ml/min; Est GFR (African American) 89.9 ml/min; Est GFR (Non-African American) 77.6 ml/min; Potassium 3.5 mmol/L (3.5-5.1)
[2020-11-12] MEDS: INSULIN ASPART 100 UNITS/ML 3 ML PEN SC SCH ×4 (08:03→21:23)
[2020-11-12] MEDS: LOSARTAN POTASSIUM 50 MG TAB PO SCH ×2 (08:03→21:22)
[2020-11-12] MEDS: LORATADINE 10 MG TAB PO SCH (08:03)
[2020-11-12] MEDS: amLODIPine BESYLATE 5 MG TAB PO SCH (08:03)
[2020-11-12] MEDS: UMECLIDINIUM BROMIDE 62.5MCG/BLISTER 7 PUFFS/INHALER INH SCH (08:03)
[2020-11-12] MEDS: guaiFENesin 600 MG TABCR PO SCH ×2 (08:03→21:22)
[2020-11-12] MEDS: levETIRAcetam ORAL SOLN 100MG/ML PO SCH ×2 (11:47→21:23)
--- NOTE | 2020-11-12 14:35 | Discharge Summary ---
Date of Service November 13, 2020 Admission HPI Per Admitting Provider This is a 75yo M with a PMH of type 2 diabetes, CKD 3, hypertension, left hemiparesis from history of right MCA stroke, history of pulmonary embolism on Xarelto, seizure disorder, history of bladder cancer and other medical problems listed below who presents with fever, cough and malaise x 4 days. noted fever of 99.9% Fahrenheit earlier today, which is T-max. Endorses malaise, cough with clear sputum, sore throat, fatigue and weakness. Feels it is difficult to get a good breath. No chills, headache, neck stiffness, rashes chest pain, nausea, vomiting, abdominal pain, dysuria, diarrhea or constipation. No recent choking or known aspiration. Also endorses poor appetite. is sick with similar viral symptoms. Took morning medications prior to arrival. Admission Exam Per Admitting Provider General- No acute distress Head- atraumatic Eyes- PERRL, EOMI, ENT- oropharynx clear Neck- supple, no JVD Lungs- Clear BS Heart- regular rhythm; no murmur Abdomen- normal bowel sounds, soft, nontender Extremities- no calf tenderness Neuro- alert, oriented x 3; PERRL, EOMI; no facial palsy; no dysarthria Skin- warm & dry Principal Diagnosis (1) Sepsis: (2) URI (upper respiratory infection): (3) Abdominal pain (4) History of pulmonary embolism: (5) Seizure disorder: (6) HTN (hypertension): (7) DM type 2 (diabetes mellitus, type 2): (9) Malignant neoplasm of bladder: Discharge Exam General- No acute distress Head- atraumatic Eyes- PERRL, EOMI, ENT- oropharynx clear Neck- supple, no JVD Lungs- Clear BS Heart- regular rhythm; no murmur Abdomen- normal bowel sounds, soft, nontender Extremities- no calf tenderness Neuro- alert, oriented x 3; PERRL, EOMI; no facial palsy; no dysarthria Skin- warm & dry Discharge Data Allergies Allergy/AdvReac Type Severity Reaction Status Date / Time [id number] Reductase AdvReac Severe MUSCLE Verified 11/06/20 10:43 Inhibitor CRAMPS lactose AdvReac Intermediate GI SYMPTOMS Verified 11/06/20 10:43 Consultations 11/06/20 11:18 ED Decision to Admit Stat 11/07/20 08:00 Consult Pulmonology Routine Ordered Studies 11/06/20 13:07 CT abd pelvis IV con only Urgent 11/06/20 16:41 CT chest diagnostic w con Urgent CT OF THE CHEST WITH IV CONTRAST CLINICAL HISTORY: Better assess lungs/chest, hypoxia, cough COMPARISON STUDY: September 16, 2018 TECHNIQUE: Following the IV administration of 94 mL of Optiray, CT of the thorax was performed from the thoracic inlet to the lung bases. Images are reviewed in the axial, sagittal, and coronal planes. IV contrast was administered without complication. A dose lowering technique was utilized adhering to the principles of ALARA. CT DOSE: 1373.04 mGy.cm FINDINGS: Thyroid: Imaged portions of the thyroid gland are normal in appearance. Thoracic aorta: The thoracic aorta is normal in course and caliber, noting stand jaskaran 3-vessel arch anatomy. No aneurysm or dissection is seen. Pulmonary vasculature: Is normal in caliber. HEART: The heart is normal in size and configuration, without pericardial effusion. Severe coronary calcifications are seen. Lungs and pleural spaces: Proximal aspect of trachea is patent. This study is acquired during expiratory phase. Significant narrowing of distal trachea and left mainstem bronchus are seen. Focal area of complete collapse of the right mainstem bronchus is seen. Above-mentioned findings might represent tracheobronchomalacia. No definite infiltrates or consolidative lesions are seen. No pleural effusion demonstrated. Evaluation of pulmonary parenchyma is significantly limited due to respiratory motion artifact. Mediastinum: There is no mediastinal lymphadenopathy. Hortencia: Clear. Axilla: Clear. Upper abdomen: Hepatic steatosis. No definite acute intra-abdominal process. Skeletal structures: There are no lytic or blastic osseous lesions. IMPRESSION: 1. No large infiltrates or consolidative lesions. No pleural effusion. Limited evaluation of pulmonary parenchyma due to significant motion artifact. 2. Partial expiratory phase and focal area of significant trachea and bronchial stenosis on the left and complete occlusion of the right within main stem bronchus likely represent tracheobronchomalacia. Please correlate above- mentioned findings with prior history and pulmonology evaluation. 3. Hepatic steatosis. 4. Atherosclerosis. 5. The rest of findings as above. ACT 112: Negative or not required by law. The above report was generated using voice recognition software. It may contain grammatical, syntax or spelling errors. Electronically signed by: Loren Rae DO 11/06/2020 7:01 PM Dictated: 11/06/201845Transcribed: 11/06/201845 `CT abd pelvis IV con only CLINICAL HISTORY: diffuse abd pain, sepsis COMPARISON STUDY: January 10, 2020 TECHNIQUE: A dose lowering technique was utilized adhering to the principles of ALARA. CT DOSE: FINDINGS: Lower chest: No large infiltrates or consolidative lesions. Evaluation is limited due to motion artifact.. Liver: Hepatic steatosis. No focal liver lesions or intrahepatic biliary dilatation. Gallbladder: Surgically absent. Spleen: Normal in size and attenuation. Pancreas: Unremarkable. Adrenal glands: Unremarkable. Kidneys: There is symmetric renal cortical enhancement. The kidneys are normal in size without hydronephrosis. Pelvic viscera: Urinary bladder is adequately filled with urine. Prostate gland is enlarged with dystrophic calcifications within its parenchyma. Bowel: The small bowel and colon are normal in course and caliber. Appendix is not well seen. Evaluation is limited due to motion artifact. Mild diverticulosis of sigmoid colon is seen without evidence of diverticulitis. Peritoneum: There is no intraperitoneal free air or abdominal ascites. Vasculature: Abdominal aorta is normal in caliber with extensive partial calcified plaques within its wall. Extensive calcified plaques within bilateral iliac arteries which might course stenosis. Adenopathy: None. Skeletal structures: No destructive osseous lesions are seen. IMPRESSION: 1. No acute intra-abdominal process. Nondilated loops of bowel. Appendix is not well seen. 2. Hepatic steatosis. Status post cholecystectomy. 3. No hydronephrosis or nephrolithiasis. 4. Atherosclerosis. 5. The rest of findings as above. ACT 112: Negative or not required by law. The above report was generated using voice recognition software. It may contain grammatical, syntax or spelling errors. Electronically signed by: Loren Rae DO 11/06/2020 7:08 PM Dictated: 11/06/201900Transcribed: 11/06/201900```4 Hospital Course (1) Sepsis: (2) URI (upper respiratory infection): 75yo M with a PMH of type 2 diabetes, CKD 3, hypertension, left hemiparesis from history of right MCA stroke, history of pulmonary embolism on Xarelto, seizure disorder, history of bladder cancer and other medical problems listed below who presents with fever, cough and malaise x 4 days and meets sepsis criteria. HR 119, T 37.7 C, WBC 17, lactate 4.4--> 3.1-->2.2, procal normal CXR No acute pulmonary process Covid test was negative. 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 Scaffolder evaluation appreciated. Patient will need outpatient PFTs and polysomnography. Nocturnal pulse oximetry done Patient required treatment with nasal cannula at night No signs of obvious bacterial infection, Antibiotics discontinued Mucomyst and hypertonic saline added 2 step exercise done today and patient required 2 L nasal cannula with activity Continue incentive spirometry and flutter Continue monitor closely (3) Abdominal pain: Diffuse TTP on physical exam on admission. Abdominal tenderness resolved. CT abdomen pelvis did not reveal free of any acute findings (4) History of pulmonary embolism: Continue Xarelto (5) Seizure disorder: Last known seizure 4 years ago. Continue Keppra (6) HTN (hypertension): Continue amlodipine Pulm recommend changing lisinopril to alternative antihypertensive with concern for ACEI likely contributing to cough Lisinopril discontinued and switched to Losartan (7) DM type 2 (diabetes mellitus, type 2): Stopped taking Metformin a month ago due to side effect of diarrhea Diabetes education consult, likely to need other oral medication Repeat A1c 7.4 SSI while in-patient BSG AC HS (8) Left hemiparesis: Residual deficit from remote right MCA stroke Patient reports using a hemiwalker at home Awaiting PT/OT evaluation. If patient ends up needing oxygen to go home, he will need education how to ambulate and manage oxygen/tubing to minimize fall risk (9) Malignant neoplasm of bladder: Following guidelines for surveillance with noninvasive bladder cancers. Follows with Dr. Harry [facility] [place] urology DVT Ppx: Xarelto Code status: DNR PCP: Pilgram Disposition Possible discharge today Total Time Total Time Spent Total Time Spent (In Minutes): 35 minutes Discharge Plan Discharge Items Patient Disposition: Home - Home Health Services Reason For Visit: SEPSIS, UNKNOWN SOURCE Discharge Diagnosis: (1) Sepsis: (2) URI (upper respiratory infection): (3) Abdominal pain (4) History of pulmonary embolism: (5) Seizure disorder: (6) HTN (hypertension): (7) DM type 2 (diabetes mellitus, type 2): (9) Malignant neoplasm of bladder: Activity: Resume your previous activity Non-emergency contact: Primary Care Provider Call non-emergency contact if: you have any medication questions Follow-up/Referrals: Raul Benitez MD [Primary Care Provider] - (Date & Time 11/15/2020 3:00 PM Provider Raul Benitez MD Department [facility] ) Diet: Heart Healthy Addtl Attending Provider Instructions: Follow up with your primary care provider Dr. Benitez on 11/15/2020 @3:00 PM at the [facility] Follow up with pulmonology specialist because you need outpatient Pulmonary function test and polysomnography ( Your provider will put the referral) Continue 2L Nasal Canula oxygen at rest, ambulation and at night Continue physical and occupational therapy fall precaution Lisinopril changed to Losartan due to the cough. Pending Studies at Discharge: No Stand-Alone Forms: My [facility] [employer] Loyalty, Smoking Cessation Medications and DC Order Prescriptions: New losartan 50 mg Tablet 50 mg PO AMHS Qty: 30 RF: 0 Incruse Ellipta 62.5 mcg/actuation Blister With Device 1 inh inhalation DAILY 30 Days Qty: 1 RF: 0 guaifenesin 200 mg tablet 200 mg PO TID PRN (Reason: cough) Qty: 30 RF: 0 Continued metformin 500 mg Tablet 500 mg PO BIDM RF: 0 levetiracetam [Keppra] 750 mg Tablet 1,500 mg PO AMHS RF: 0 ezetimibe [Zetia] 10 mg Tablet 10 mg PO QDD RF: 0 amlodipine [Norvasc] 5 mg Tablet 5 mg PO QAM RF: 0 Xarelto 20 mg Tablet 20 mg PO QDD RF: 0 tamsulosin [Flomax] 0.4 mg capsule 0.8 mg PO HS RF: 0 fluticasone propionate [Flonase Allergy Relief] 50 mcg/actuation spray,suspension 1 spray INTRANASAL HS RF: 0 dicyclomine 10 mg capsule 10 mg PO BID PRN (Reason: Abdominal Discomfort) RF: 0 Discontinued lisinopril [Prinivil] 20 mg tablet 20 mg PO AMHS RF: 0 Discharge Orders: Discharge Order (Routine); Ordered 11/13/20 Ordered By: Leah Amaya Admission Data Admit Date/Time: 11/06/20 12:00 Attending Provider: Leah Amaya Admit Provider: Angelica Venegas I. Primary Care Provider: Raul Benitez Other Providers: Angelica Venegas I. ; Vanessa Peterson Other Interventions: Discharge Summary Assessment (RN) Last Done: 11/13/20 15:57
[2020-11-12] MEDS: RIVAROXABAN 20 MG TAB PO SCH (16:51)
[2020-11-12] MEDS: EZETIMIBE 10 MG TABLET PO SCH (16:51)
[2020-11-12] MEDS: FLUTICASONE PROPIONATE NA SPR 16 GM BTL NAE SCH (21:22)
[2020-11-12] MEDS: TAMSULOSIN HCL 0.4 MG CAP PO SCH (21:23)
--- NOTE | 2020-11-12 21:58 | Hospitalist Progress Note ---
Date of Service November 12, 2020 Assessment & Plan (1) Sepsis: (2) URI (upper respiratory infection): Plan: 75yo M with a PMH of type 2 diabetes, CKD 3, hypertension, left hemiparesis from history of right MCA stroke, history of pulmonary embolism on Xarelto, seizure disorder, history of bladder cancer and other medical problems listed below who presents with fever, cough and malaise x 4 days and meets sepsis criteria. HR 119, T 37.7 C, WBC 17, lactate 4.4--> 3.1-->2.2, procal normal CXR No acute pulmonary process Covid test was negative. 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 Systems Test Analyst evaluation appreciated. Patient will need outpatient PFTs and polysomnography. Nocturnal pulse oximetry done Patient required treatment with nasal cannula at night No signs of obvious bacterial infection, Antibiotics discontinued Continue Mucomyst and hypertonic saline today since starting to bring the phlegm up 2 step exercise done today and patient required 2 L nasal cannula with activity Continue incentive spirometry and flutter Continue monitor closely (3) Abdominal pain: Plan: Diffuse TTP on physical exam on admission. Abdominal tenderness resolved. CT abdomen pelvis did not reveal free of any acute findings (4) History of pulmonary embolism: Plan: Continue Xarelto (5) Seizure disorder: Plan: Last known seizure 4 years ago. Continue Keppra (6) HTN (hypertension): Plan: Continue amlodipine Pulm recommend changing lisinopril to alternative antihypertensive with concern for ACEI likely contributing to cough Lisinopril discontinued and switched to Losartan (7) DM type 2 (diabetes mellitus, type 2): Plan: Stopped taking Metformin a month ago due to side effect of diarrhea Diabetes education consult, likely to need other oral medication Repeat A1c 7.4 SSI while in-patient BSG AC HS (8) Left hemiparesis: Plan: Residual deficit from remote right MCA stroke Patient reports using a hemiwalker at home Awaiting PT/OT evaluation. If patient ends up needing oxygen to go home, he will need education how to ambulate and manage oxygen/tubing to minimize fall risk (9) Malignant neoplasm of bladder: Plan: Following guidelines for surveillance with noninvasive bladder cancers. Follows with Dr. Harry [facility] [place]rology DVT Ppx: Jennifferto Code status: DNR PCP: Pilgram Disposition Possible discharge tomorrow Admission and Anticipated Discharge Date Admission Date: November 06, 2020 Subjective Pt was seen and examined for SOB Lying in bed with no distress with at bedside Pt said that his breathing is much better He said that he is able to bring chunk of phelgm up He is very anxious to go home but at bedside would like him to stay for another night Denies any chest pain, palpitation, dizziness and SOB Physical Exam Physical Exam: General- No acute distress Head- atraumatic Eyes- PERRL, EOMI, ENT- oropharynx clear Neck- supple, no JVD Lungs- Clear BS Heart- regular rhythm; no murmur Abdomen- normal bowel sounds, soft, nontender Extremities- no calf tenderness Neuro- alert, oriented x 3; PERRL, EOMI; no facial palsy; no dysarthria Skin- warm & dry Results & Data Results & Data ([facility]) Vital Signs (Past 12 Hours) Vital Signs Temp Pulse Resp BP Pulse Ox 11/12/20 20:14 67 20 89 L 11/12/20 19:51 36.7 C 91 H 20 167/74 H 90 11/12/20 16:16 36.7 C 97 H 18 108/64 90 11/12/20 12:10 36.3 C L 107 H 18 120/69 91
[2020-11-13] MEDS: guaiFENesin SUGAR FREE 200 MG/10 ML UDC PO SCH ×2 (03:12→08:18)
[2020-11-13] MEDS: ACETYLCYSTEINE 10% INHAL SOLN 4 ML **DISPENSED BY RESP. INH SCH (07:24)
[2020-11-13] MEDS: SODIUM CHLOR 7% 4 ML NEB NEB SCH (07:24)
[2020-11-13] MEDS: ALBUT/IPRATROP 3MG/0.5MG NEB 3 ML VIAL NEB PRN (07:25)
[2020-11-13] MEDS: guaiFENesin 600 MG TABCR PO SCH (08:17)
[2020-11-13] MEDS: LOSARTAN POTASSIUM 50 MG TAB PO SCH (08:17)
[2020-11-13] MEDS: levETIRAcetam ORAL SOLN 100MG/ML PO SCH (08:17)
[2020-11-13] MEDS: UMECLIDINIUM BROMIDE 62.5MCG/BLISTER 7 PUFFS/INHALER INH SCH (08:18)
[2020-11-13] MEDS: amLODIPine BESYLATE 5 MG TAB PO SCH (08:18)
[2020-11-13] MEDS: LORATADINE 10 MG TAB PO SCH (08:18)
[2020-11-13] MEDS: INSULIN ASPART 100 UNITS/ML 3 ML PEN SC SCH ×2 (08:19→12:55)
[2020-11-13 15:45] VITALS: BP 94/61; TEMP 98.4; O2SAT 90
[2020-11-13 15:59] VITALS: PULSE 98
== END 2020-11-13 16:31 | disposition home health service (06) | DRG 871 ==
LOC: ED 08:25 → SUATTDRO 12:00 → 1E 12:00 → 2S 19:05
DX: Z87.891 Personal history of nicotine dependence; Z86.718 Personal history of other venous thrombosis and embolism; J39.8 Other specified diseases of upper respiratory tract; I69.354 Hemiplegia and hemiparesis following cerebral infarction affecting left non-dominant side; Z79.84 Long term (current) use of oral hypoglycemic drugs; Z95.5 Presence of coronary angioplasty implant and graft; E11.22 Type 2 diabetes mellitus with diabetic chronic kidney disease; I12.9 Hypertensive chronic kidney disease with stage 1 through stage 4 chronic kidney disease, or unspecified chronic kidney disease; N18.30 Chronic kidney disease, stage 3 unspecified; A41.9 Sepsis, unspecified organism; G40.909 Epilepsy, unspecified, not intractable, without status epilepticus; Z86.711 Personal history of pulmonary embolism; J96.01 Acute respiratory failure with hypoxia; Z83.3 Family history of diabetes mellitus; C67.9 Malignant neoplasm of bladder, unspecified; E78.5 Hyperlipidemia, unspecified; Z82.3 Family history of stroke; J06.9 Acute upper respiratory infection, unspecified; E11.51 Type 2 diabetes mellitus with diabetic peripheral angiopathy without gangrene

== ENCOUNTER 2021-02-21 16:49 | Inpatient (IN) ==
[2021-02-21] MEDS ORDERED: SODIUM CHLORIDE 0.9% 1000ML 1,000 ML IV STA (18:09)
[2021-02-21] MEDS ORDERED: SODIUM CHLORIDE 0.9% 500 ML IV STA (18:09)
--- NOTE | 2021-02-21 18:29 | XRay Report ---
XR chest 1V portable CLINICAL HISTORY: weakness. . Evaluate cardiopulmonary status COMPARISON STUDY: 11/06/2020 TECHNIQUE: 1 view of the chest FINDINGS: Single frontal view of the chest demonstrates the cardiomediastinal silhouette to be within normal li mits. The lungs are clear of alveolar opacities. There is no evidence for pleural effusion. There is no evidence for vascular congestion. There is no acute osseous pathology. IMPRESSION: No acute cardiopulmonary disease. ACT 112: Negative or not required by law. Electronically signed by: Westley Cavazos M.D. 02/21/2021 6:27 PM
[2021-02-21 18:46] LABS: Basophils # (auto) 0.04 K/uL (0-0.2); Basophils % (auto) 0.2 %; Eosinophils # (auto) 0.04 K/uL (0-0.5); Eosinophils % (auto) 0.2 %; Hematocrit (blood only) 48.1 % (42-52); Hemoglobin 16.1 g/dL (14.0-18.0); Immature Granulocytes # (auto) 0.06 K/uL (0.00-0.02); Immature Granulocytes % (auto) 0.3 %; Lymphocytes # (auto) 1.92 K/uL (1.2-3.4); Lymphocytes % (auto) 10.6 %; Mean Corpuscular Hemoglobin 31.5 pg (25-34); Mean Corpuscular Hgb Conc 33.5 g/dL (32-36); Mean Corpuscular Volume 94.1 fL (80-100); Mean Platelet Volume 10.8 fL (7.4-10.4); Monocytes # (auto) 0.98 K/uL (0.11-0.59); Monocytes % (auto) 5.4 %; Neutrophils # (auto) 15.12 K/uL (1.4-6.5); Neutrophils % (auto) 83.3 %; Platelet Count 319 K/uL (130-400); RDW Coefficient of Variation 13.8 % (11.5-14.5); RDW Standard Deviation 47.6 fL (36.4-46.3); Red Blood Count 5.11 M/uL (4.7-6.1); White Blood Count 18.16 K/uL (4.8-10.8)
[2021-02-21 19:03] LABS: Alanine Aminotransferase 33 U/L (12-78); Albumin Level 3.8 gm/dl (3.4-5.0); Aspartate Aminotransferase 15 U/L (15-37); Blood Urea Nitrogen 15 mg/dl (7-18); Carbon Dioxide 25 mmol/L (21-32); Chloride 104 mmol/L (98-107); Est GFR (African American) 56.6 ml/min; Est GFR (Non-African American) 48.8 ml/min; Glucose 178 mg/dl (70-99); Potassium 3.8 mmol/L (3.5-5.1); Sodium 141 mmol/L (136-145)
[2021-02-21 19:14] LABS: Albumin Globulin Ratio 0.9 (0.9-2); Alkaline Phosphatase 77 U/L (45-117); Bilirubin,Total 0.5 mg/dl (0.2-1); Globulin 4.1 gm/dl (2.5-4.0); Thyroid Stimulating Hormone 0.933 uIu/ml (0.300-4.500); Total Protein 7.9 gm/dl (6.4-8.2); Troponin I < 0.015 ng/ml (0-0.045)
[2021-02-21 19:26] LABS: Appearance Urine Clear (Clear); Bilirubin Urine Negative (Negative); Blood Urine Negative (Negative); Color Urine Yellow; Glucose Urine UA 3+ (Negative); Ketones Urine Trace (Negative); Leukocyte Esterase Urine Negative (Negative); Nitrite Urine Negative (Negative); Protein Urine Negative (Negative); Specific Gravity Urine 1.038 (1.000-1.030); Urobilinogen Urine Negative (Negative)
--- NOTE | 2021-02-21 19:27 | Emergency Department Note ---
Impression & Plan Weakness, Dysuria, Flu-like symptoms ED Provider Note INFORMANT: Patient ED PROVIDER(S): Dwayne Garcia MD CHIEF COMPLAINT: Weakness PLAN: Disposition: Admitted Condition: Good Outpatient prescription management: none Referral: None MEDICAL DECISION MAKING: Patient presented with weakness. There was concerns for sepsis. He had blood work and cultures obtained. He did have an elevated lactate and a significant leukocytosis. He was given a dose of empiric cefepime. He was hydrated. The patient had a negative chest x-ray negative Covid test. Urinalysis was rather unremarkable. The patient underwent CT imaging of his head which did not show any acute findings. CT scan of the abdomen and pelvis did not reveal any acute findings either. Given his weakness, suggestions of sepsis, and a lack of a source the patient will need further management in the hospital. I did consult with Dr. Marcos Oro, [facility] hospitalist service. Patient was evaluated in the ER for further management. Triage Nursing notes reviewed and agree them. Vital Signs: reviewed and remarkable for no significant abnormalities Differential diagnosis: Infection, dehydration, metabolic abnormality, hypo/hyperglycemia, electrolyte disturbance, anemia, hypoxia, cardiac sources, intracerebral event, toxicologic, neurologic, as well as other pathologies. Diagnostics interpreted by me: ECG: Twelve-lead ECG reveals sinus tachycardia 133 bpm. Left atrial artery. Some mild lateral ST depression. Nonspecific ST abnormality. Cardiac Monitoring: Cardiac monitoring ordered by me: The patient was placed on continuous cardiac monitoring and observed. It revealed a normal sinus rhythm at Sinus tachycardic rhythm at 116 beats per minute without ectopy or evidence of dysrhythmia. Imaging studies: CT scans and chest x-ray as noted below. HPI: The patient is a 76 year old male who presents to the Emergency Room with complaints of weakness. This started today and is increasing throughout the day. The patient also notes the following associated symptoms, shakiness, increased heart rate, sweating, dysuria. The patient has took no medication for relieving factors. Current pain is rated as 3/10. Patient has a history of stroke and left-sided hemiparesis. Weakness he is experiencing he describes as generalized. No new focal weakness. Pt denies LOC, headache, fevers, chills, visual changes, neck pain, chest pain, breathing difficulties, nausea, vomiting, abdominal pain, back pain, melena, hematochezia, numbness, lymphadenopathy, rash, or other complaints. ROS: See above HPI for pertinent positives & negatives. A total of 10 systems reviewed and were otherwise negative. PAST MEDICAL HISTORY:See Below , CVA PAST SURGICAL HISTORY:See Below, FAMILY HISTORY:See Below SOCIAL HISTORY:See Below, HOME MEDICATIONS:See Below ALLERGIES:See Below VITALS:See Below PHYSICAL EXAMINATION: GENERAL: Awake, alert, mildly ill-appearing, in no distress HENT: Normocephalic, atraumatic. Oropharynx unremarkable. EYES: Normal conjunctiva. Sclera non-icteric. NECK: Inspection normal. Non-tender. Supple. No nuchal rigidity. FROM. No masses. RESPIRATORY: Clear to auscultation. No wheezes. No rales. Normal respiratory effort. CARDIAC: Tachycardic rate. Normal rhythm. No murmurs. No rubs. Extremities warm and well perfused. Pulses equal. No JVD. GI: Soft, non-distended. No tenderness to palpation. No rebound or guarding. No masses. RECTAL: Deferred. MUSCULOSKELETAL: Atraumatic. Chest examination reveals no tenderness. The back is symmetrical on inspection without obvious abnormality. There is no CVA tenderness to palpation. No joint edema. LOWER EXTREMITIES: Calves are equal size bilaterally and non-tender. No edema. No discoloration. NEURO: Normal sensorium. No sensory deficits noted. There is 3.5 out of 5 strength in the left lower extremity. There is paralysis of the left upper extremity. Patient and state this is chronic. No focal weakness in the right upper or right lower extremities. SKIN: No rash or jaundice noted. Dwayne Garcia MD Past Med/Surg History Medical History (Updated 02/21/21 @ 19:27 by Dwayne Garcia MD) Bile leak, postoperative After lap carlotta 08/20, had subsequent ERCP with stent placement, stent removed 09/30. Bladder tumor Noted incidentally on CT 09/16/18. Patient to ED on 09/29 with hematuria. DM type 2 (diabetes mellitus, type 2) A1c 6.3 07/2018 Fever of unknown origin History of pulmonary embolism [facility] 09/06. Discharged on Xarelto. History of stroke 5 years ago, residual CANNOT USE LEFT ARM - IN SLING; LEFT LEG WEAK - USES [employer]EN WALKER HTN (hypertension) Left hemiparesis On anticoagulant therapy CURRENTLY ON HOLD FROM E.R. 09/29/18 DUE TO HEMATURIA. PT TO F/U 10/02/18 WITH PCP REGARDING HIS XARELTO. PAD (peripheral artery disease) Seizure disorder 2/2 CVA. On Keppra. Surgical History (Updated 11/06/20 @ 17:31 by Carolyn Waldrop PA-C) H/O umbilical hernia repair History of appendectomy History of cholecystectomy Due to gangrenous gallbladder. Complicated by bile leak, had subsequent ERCP with stent placement on 08/21. To [facility] ED 09/16 with sepsis. ACRA drain removed, IV ABX. History of colonoscopy History of cystoscopy History of right common carotid artery stent placement S/P ERCP 09/30 for stent removal, [facility]. Family History Mother Diabetes Father Stroke Social History Smoking Status: Never smoker Tobacco Type: Cigarettes Second Hand Exposure: No; Hx Alcohol Use: No Hx Substance Use: No Preferred Language: Serbian Communication Ability: Effective Manager Content Required: No Beliefs That Will Affect Care: None marital status: Current Living Situation: Spouse How many Children do You have: 3 Feels Safe at Home: Yes Assistive Devices: Denture - Lower and Oxygen - Continuous Allergies Allergies Allergy/AdvReac Type Severity Reaction Status Date / Time [id number] Reductase AdvReac Severe MUSCLE Verified 02/21/21 19:19 Inhibitor CRAMPS [Xusplkn-Wzs-Ahf Reductase Inhibitor] lactose AdvReac Intermediate GI SYMPTOMS Verified 02/21/21 19:19 Home Meds Home Medications Medication Instructions Recorded Confirmed ezetimibe 10 mg tablet (Zetia) 10 mg PO QDD 12/17/17 02/21/21 levetiracetam 750 mg tablet 1,500 mg PO AMHS 12/17/17 02/21/21 (Keppra) amlodipine 5 mg tablet (Norvasc) 5 mg PO QAM 01/10/20 02/21/21 rivaroxaban 20 mg tablet (Xarelto) 20 mg PO QDD 01/10/20 02/21/21 fluticasone propionate 50 1 spray INTRANASAL HS 11/06/20 02/21/21 mcg/actuation nasal spray,suspension (Flonase Allergy Relief) tamsulosin 0.4 mg capsule (Flomax) 0.8 mg PO HS 11/06/20 02/21/21 empagliflozin 10 mg tablet 10 mg PO QAM 02/21/21 02/21/21 (Jardiance) umeclidinium 62.5 mcg/actuation 1 inh INHALATION HS 02/21/21 02/21/21 blister powder for inhalation (Incruse Ellipta) Previous Rx's Medication Instructions Recorded guaifenesin 200 mg tablet 200 mg PO TID PRN #30 tab 11/13/20 losartan 50 mg tablet 50 mg PO AMHS #30 tab 11/13/20 finasteride 5 mg tablet 5 mg PO DAILY #30 tab 12/22/20 Results & Data (ED) Vital Signs Vital Signs - 24 hr 02/21/21 16:55 02/21/21 18:10 02/21/21 18:20 Temperature 37.3 C Temperature Source Temporal Artery Scan Pulse Rate 130 H 123 H 119 H Pulse Rate [Right Finger] 118 H Respiratory Rate 18 26 H 27 H Respiratory Effort / Characteristics Non-Labored Non-Labored Spontaneous Respiratory Depth Normal Normal Blood Pressure 122/68 Blood Pressure [Right Arm] 139/70 Blood Pressure Mean 86 Blood Pressure Mean [Right Arm] 93 Pulse Oximetry 90 96 95 Oxygen Delivery Method Room Air Nasal Cannula Nasal Cannula Oxygen Flow Rate 4 4 Sepsis Recent Fever Within 48 Hours No Sepsis New/Unexplained Change in Mental Status No Sepsis Action Taken by Nursing No Action Required 02/21/21 18:25 02/21/21 18:30 02/21/21 18:40 Temperature Temperature Source Pulse Rate 118 H 114 H Pulse Rate [Right Finger] Respiratory Rate 24 20 Respiratory Effort / Characteristics Respiratory Depth Blood Pressure Blood Pressure [Right Arm] Blood Pressure Mean Blood Pressure Mean [Right Arm] Pulse Oximetry 95 97 95 Oxygen Delivery Method Nasal Cannula Nasal Cannula Nasal Cannula Oxygen Flow Rate 3 4 4 Sepsis Recent Fever Within 48 Hours Sepsis New/Unexplained Change in Mental Status Sepsis Action Taken by Nursing 02/21/21 18:50 02/21/21 19:00 02/21/21 19:10 Temperature Temperature Source Pulse Rate 112 H 105 H 115 H Pulse Rate [Right Finger] Respiratory Rate 21 26 H 17 Respiratory Effort / Characteristics Respiratory Depth Blood Pressure Blood Pressure [Right Arm] Blood Pressure Mean Blood Pressure Mean [Right Arm] Pulse Oximetry 93 Oxygen Delivery Method Nasal Cannula Nasal Cannula Nasal Cannula Oxygen Flow Rate 4 4 4 Sepsis Recent Fever Within 48 Hours Sepsis New/Unexplained Change in Mental Status Sepsis Action Taken by Nursing 02/21/21 19:20 02/21/21 19:30 02/21/21 19:40 Temperature Temperature Source Pulse Rate 115 H 116 H 114 H Pulse Rate [Right Finger] Respiratory Rate 26 H 21 18 Respiratory Effort / Characteristics Respiratory Depth Blood Pressure 162/90 H Blood Pressure [Right Arm] Blood Pressure Mean 114 Blood Pressure Mean [Right Arm] Pulse Oximetry 94 95 Oxygen Delivery Method Nasal Cannula Nasal Cannula Nasal Cannula Oxygen Flow Rate 4 4 4 Sepsis Recent Fever Within 48 Hours Sepsis New/Unexplained Change in Mental Status Sepsis Action Taken by Nursing 02/21/21 19:50 Temperature Temperature Source Pulse Rate 116 H Pulse Rate [Right Finger] Respiratory Rate 19 Respiratory Effort / Characteristics Respiratory Depth Blood Pressure Blood Pressure [Right Arm] Blood Pressure Mean Blood Pressure Mean [Right Arm] Pulse Oximetry 94 Oxygen Delivery Method Nasal Cannula Oxygen Flow Rate 4 Sepsis Recent Fever Within 48 Hours Sepsis New/Unexplained Change in Mental Status Sepsis Action Taken by Nursing Laboratory Data Result diagrams: 02/21/21 18:15 02/21/21 18:15 Lab Results 02/21/21 02/21/21 02/21/21 Range/Units 18:00 18:00 18:15 WBC 18.16 H (4.8-10.8) K/uL RBC 5.11 (4.7-6.1) M/uL Hgb 16.1 (14.0-18.0) g/dL Hct 48.1 (42-52) % MCV 94.1 (80-100) fL MCH 31.5 (25-34) pg MCHC 33.5 (32-36) g/dL RDW Std Deviation 47.6 H (36.4-46.3) fL RDW Coeff of Araceli 13.8 (11.5-14.5) % Plt Count 319 (130-400) K/uL MPV 10.8 H (7.4-10.4) fL Immature Gran % (Auto) 0.3 % Neut % (Auto) 83.3 % Lymph % (Auto) 10.6 % [place] % (Auto) 5.4 % Eos % (Auto) 0.2 % Baso % (Auto) 0.2 % Neut # (Auto) 15.12 H (1.4-6.5) K/uL Lymph # (Auto) 1.92 (1.2-3.4) K/uL [place] # (Auto) 0.98 H (0.11-0.59) K/uL Eos # (Auto) 0.04 (0-0.5) K/uL Baso # (Auto) 0.04 (0-0.2) K/uL Immature Gran # (Auto) 0.06 H (0.00-0.02) K/uL Sodium (136-145) mmol/L Potassium (3.5-5.1) mmol/L Chloride (98-107) mmol/L Carbon Dioxide (21-32) mmol/L Anion Gap (3-11) BUN (7-18) mg/dl Creatinine (0.6-1.4) mg/dl Est Cr Clr Drug Dosing Est GFR ( Amer) ml/min Est GFR (Non-Af Amer) ml/min BUN/Creatinine Ratio (10-20) Glucose (70-99) mg/dl Lactate (0.4-2.0) mmol/L Calcium (8.5-10.1) mg/dl Magnesium (1.8-2.4) mg/dl Total Bilirubin (0.2-1) mg/dl AST (15-37) U/L ALT (12-78) U/L Alkaline Phosphatase (45-117) U/L Troponin I (0-0.045) ng/ml Total Protein (6.4-8.2) gm/dl Albumin (3.4-5.0) gm/dl Globulin (2.5-4.0) gm/dl Albumin/Globulin Ratio (0.9-2) Procalcitonin (0-0.5) ng/ml TSH (0.300-4.500) uIu/ml Urine Color Urine Appearance (Clear) Urine pH (4.5-7.5) Ur Specific [place] (1.000-1.030) Urine Protein (Negative) Urine Glucose (UA) (Negative) Urine Ketones (Negative) Urine Blood (Negative) Urine Nitrite (Negative) Urine Bilirubin (Negative) Urine Urobilinogen (Negative) Ur Leukocyte Esterase (Negative) SARS-CoV-2 (PCR) NEGATIVE (Negative) Influ A Molecular Assay Negative (Negative) Influ B Molecular Assay Negative (Negative) 02/21/21 02/21/21 02/21/21 Range/Units 18:15 18:15 19:06 WBC (4.8-10.8) K/uL RBC (4.7-6.1) M/uL Hgb (14.0-18.0) g/dL Hct (42-52) % MCV (80-100) fL MCH (25-34) pg MCHC (32-36) g/dL RDW Std Deviation (36.4-46.3) fL RDW Coeff of Araceli (11.5-14.5) % Plt Count (130-400) K/uL MPV (7.4-10.4) fL Immature Gran % (Auto) % Neut % (Auto) % Lymph % (Auto) % [place] % (Auto) % Eos % (Auto) % Baso % (Auto) % Neut # (Auto) (1.4-6.5) K/uL Lymph # (Auto) (1.2-3.4) K/uL [place] # (Auto) (0.11-0.59) K/uL Eos # (Auto) (0-0.5) K/uL Baso # (Auto) (0-0.2) K/uL Immature Gran # (Auto) (0.00-0.02) K/uL Sodium 141 (136-145) mmol/L Potassium 3.8 (3.5-5.1) mmol/L Chloride 104 (98-107) mmol/L Carbon Dioxide 25 (21-32) mmol/L Anion Gap 12.0 H (3-11) BUN 15 (7-18) mg/dl Creatinine 1.40 (0.6-1.4) mg/dl Est Cr Clr Drug Dosing Not Reportable Est GFR ( Amer) 56.6 ml/min Est GFR (Non-Af Amer) 48.8 ml/min BUN/Creatinine Ratio 11.0 (10-20) Glucose 178 H (70-99) mg/dl Lactate 3.8 H* (0.4-2.0) mmol/L Calcium 10.0 (8.5-10.1) mg/dl Magnesium 2.0 (1.8-2.4) mg/dl Total Bilirubin 0.5 (0.2-1) mg/dl AST 15 (15-37) U/L ALT 33 (12-78) U/L Alkaline Phosphatase 77 (45-117) U/L Troponin I < 0.015 (0-0.045) ng/ml Total Protein 7.9 (6.4-8.2) gm/dl Albumin 3.8 (3.4-5.0) gm/dl Globulin 4.1 H (2.5-4.0) gm/dl Albumin/Globulin Ratio 0.9 (0.9-2) Procalcitonin < 0.05 (0-0.5) ng/ml TSH 0.933 (0.300-4.500) uIu/ml Urine Color Urine Appearance (Clear) Urine pH (4.5-7.5) Ur Specific [place] (1.000-1.030) Urine Protein (Negative) Urine Glucose (UA) (Negative) Urine Ketones (Negative) Urine Blood (Negative) Urine Nitrite (Negative) Urine Bilirubin (Negative) Urine Urobilinogen (Negative) Ur Leukocyte Esterase (Negative) SARS-CoV-2 (PCR) (Negative) Influ A Molecular Assay (Negative) Influ B Molecular Assay (Negative) 02/21/21 02/21/21 Range/Units 19:13 20:52 WBC (4.8-10.8) K/uL RBC (4.7-6.1) M/uL Hgb (14.0-18.0) g/dL Hct (42-52) % MCV (80-100) fL MCH (25-34) pg MCHC (32-36) g/dL RDW Std Deviation (36.4-46.3) fL RDW Coeff of Araceli (11.5-14.5) % Plt Count (130-400) K/uL MPV (7.4-10.4) fL Immature Gran % (Auto) % Neut % (Auto) % Lymph % (Auto) % [place] % (Auto) % Eos % (Auto) % Baso % (Auto) % Neut # (Auto) (1.4-6.5) K/uL Lymph # (Auto) (1.2-3.4) K/uL [place] # (Auto) (0.11-0.59) K/uL Eos # (Auto) (0-0.5) K/uL Baso # (Auto) (0-0.2) K/uL Immature Gran # (Auto) (0.00-0.02) K/uL Sodium (136-145) mmol/L Potassium (3.5-5.1) mmol/L Chloride (98-107) mmol/L Carbon Dioxide (21-32) mmol/L Anion Gap (3-11) BUN (7-18) mg/dl Creatinine (0.6-1.4) mg/dl Est Cr Clr Drug Dosing Est GFR ( Amer) ml/min Est GFR (Non-Af Amer) ml/min BUN/Creatinine Ratio (10-20) Glucose (70-99) mg/dl Lactate 2.2 H* (0.4-2.0) mmol/L Calcium (8.5-10.1) mg/dl Magnesium (1.8-2.4) mg/dl Total Bilirubin (0.2-1) mg/dl AST (15-37) U/L ALT (12-78) U/L Alkaline Phosphatase (45-117) U/L Troponin I (0-0.045) ng/ml Total Protein (6.4-8.2) gm/dl Albumin (3.4-5.0) gm/dl Globulin (2.5-4.0) gm/dl Albumin/Globulin Ratio (0.9-2) Procalcitonin (0-0.5) ng/ml TSH (0.300-4.500) uIu/ml Urine Color Yellow Urine Appearance Clear (Clear) Urine pH 5.0 (4.5-7.5) Ur Specific [place] 1.038 H (1.000-1.030) Urine Protein Negative (Negative) Urine Glucose (UA) 3+ H (Negative) Urine Ketones Trace H (Negative) Urine Blood Negative (Negative) Urine Nitrite Negative (Negative) Urine Bilirubin Negative (Negative) Urine Urobilinogen Negative (Negative) Ur Leukocyte Esterase Negative (Negative) SARS-CoV-2 (PCR) (Negative) Influ A Molecular Assay (Negative) Influ B Molecular Assay (Negative) Administered Medications Discontinued Medications Acetaminophen (Acetaminophen 1000 Mg/100 Ml Iv) 1,000 mg IV NOW STA Stop: 02/21/21 21:14 Last Admin: 02/21/21 21:50 Dose: 1,000 mg Documented by: [id number] Sodium Chloride (Nss 1000ml) 1,000 mls @ 125 mls/hr IV .Q8H STA Stop: 02/22/21 02:08 Last Admin: 02/21/21 18:18 Dose: 125 mls/hr Documented by: [id number] Sodium Chloride (Nss) 500 mls @ 999 mls/hr IV .Q31M STA Stop: 02/21/21 18:39 Last Infusion: 02/21/21 19:12 Dose: 999 mls/hr Documented by: [id number] Admin: 02/21/21 18:18 Dose: 999 mls/hr Documented by: [id number] Cefepime HCl (Maxipime) 2,000 mg in 20 mls @ 5 mls/min IV NOW STA; Protocol Stop: 02/21/21 20:14 Last Admin: 02/21/21 20:31 Dose: 5 mls/min Documented by: [id number] Sodium Chloride (Nss 1000ml) 1,000 mls @ 999 mls/hr IV .Q1H1M ONE Stop: 02/21/21 21:11 Last Infusion: 02/21/21 20:20 Dose: 999 mls/hr Documented by: [id number] Admin: 02/21/21 18:30 Dose: 999 mls/hr Documented by: [id number] Ondansetron HCl (Ondansetron Inj 2 Mg/Ml 2 Ml Vial) Confirm Administered Dose 4 mg .ROUTE .STK-MED ONE Stop: 02/21/21 20:29 Last Admin: 02/21/21 20:29 Dose: 4 mg Documented by: [id number] Imaging Data Radiologist's Impression: Chest X-Ray 02/21/21 18:09 XR chest 1V portable CLINICAL HISTORY: weakness. . Evaluate cardiopulmonary status COMPARISON STUDY: 11/06/2020 TECHNIQUE: 1 view of the chest FINDINGS: Single frontal view of the chest demonstrates the cardiomediastinal silhouette to be within normal limits. The lungs are clear of alveolar opacities. There is no evidence for pleural effusion. There is no evidence for vascular congestion. There is no acute osseous pathology. IMPRESSION: No acute cardiopulmonary disease. ACT 112: Negative or not required by law. Electronically signed by: Westley Cavazos M.D. 02/21/2021 6:27 PM Abdomen/Pelvis CT 02/21/21 20:49 CT abd pelvis wo con CLINICAL HISTORY: lower abd pain, weakness, 18K wbc COMPARISON STUDY: 11/06/2020 CT DOSE: 855.59 mGy.cm TECHNIQUE: Standard CT of the Abdomen and Pelvis was performed without IV contrast. The patient did not receive oral contrast. A dose lowering technique was utilized adhering to the principles of ALARA. FINDINGS: Lung base: The lung bases are clear. Abdominal cavity: There is no evidence for abdominal mass, adenopathy or ascites. Liver: The liver is again homogeneous in fatty attenuation on these limited noncontrast images.. Spleen: The spleen is homogeneous in attenuation on these limited noncontrast images. Pancreas: The pancreas is homogeneous in attenuation on these limited noncontrast images. Gall Bladder: The patient is again status post cholecystectomy. Adrenal glands: The adrenal glands are normal in size and attenuation on these l imited noncontrast images. Kidneys: The kidneys are homogeneous in attenuation on these limited noncontrast images. There is no evidence for gross renal mass, calculus or hydronephrosis bilaterally. Mild chronic bilateral perinephric stranding is again seen. Bowel: The stomach is grossly distended with liquid and food stuff. The bowel loops are normally placed within the abdomen and pelvis without evidence for dilatation or obstruction. There is no evidence for mass lesion. There is mild diverticulosis of the descending and sigmoid colon without evidence for diverticulitis. There are no inflammatory changes present. There is no evidence for free air. There is no evidence for an inflamed appendix. Bladder: There is no evidence for focal bladder wall thickening, calculus or diverticulum. : There is no evidence for pelvic mass or adenopathy. The prostate is mildly enlarged. Vasculature: There is no evidence for focal aneurysmal dilatation of the abdominal aorta. Atherosclerotic calcification is present. Osseous structures: There is no acute osseous pathology. Degenerative changes are seen involving the lumbar spine. IMPRESSION: 1. No acute intra-abdominal or pelvic abnormality on these limited noncontrast images. 2. Diverticulosis without evidence for diverticulitis. 3. Additional nonacute findings are delineated above. ACT 112: Negative or not required by law. Electronically signed by: Westley Cavazos M.D. 02/21/2021 9:[address] 02/21/21 20:49 CT head/brain wo con CLINICAL HISTORY: weakness, hx of CVA . Altered mental status and confusion COMPARISON STUDY: 02/19/2015 CT DOSE: 614.27 mGy.cm TECHNIQUE: Standard CT of the Brain was performed without IV contrast. A dose lowering technique was utilized adhering to the principles of ALARA. FINDINGS: Extraaxial space: There is no evidence for subdural hematoma. There are no extra-axial fluid collections. Ventricles and cisterns: The ventricles are again mildly dilated bilaterally. There is no evidence for midline shift or mass effect. Parenchyma: There is no subarachnoid or intraparenchymal hemorrhage. There is no evidence for an acute infarct or cerebral edema. Large area of encephalomalacia is again seen involving the distribution of the right middle cerebral artery representing an old MCA infarct. There is homogeneous a ttenuation of the remaining brain parenchyma. There are no gross mass lesions. Osseous structures: There is no evidence for an acute fracture. The visualized paranasal sinuses are clear. The mastoid air cells are clear bilaterally. Soft tissues: There is no evidence for focal soft tissue swelling. IMPRESSION: No acute intracerebral pathology. Large old right MCA infarct. ACT 112: Negative or not required by law. Electronically signed by: Westley Cavazos M.D. 02/21/2021 9:33 PM Discharge Plan Visit Data Chief Complaint: Weakness Stated Complaint: WEAKNESS, CONFUSED, SWEATING ED Provider: Dwayne Garcia Discharge Problem: Weakness, Dysuria, Flu-like symptoms Forms Stand Alone Forms: My [facility] [employer] Prescriptions Prescriptions: No Action finasteride 5 mg tablet 5 mg PO DAILY Qty: 30 RF: 11 levetiracetam [Keppra] 750 mg Tablet 1,500 mg PO AMHS RF: 0 ezetimibe [Zetia] 10 mg Tablet 10 mg PO QDD RF: 0 amlodipine [Norvasc] 5 mg Tablet 5 mg PO QAM RF: 0 Xarelto 20 mg Tablet 20 mg PO QDD RF: 0 tamsulosin [Flomax] 0.4 mg capsule 0.8 mg PO HS RF: 0 fluticasone propionate [Flonase Allergy Relief] 50 mcg/actuation spray,suspension 1 spray INTRANASAL HS RF: 0 losartan 50 mg Tablet 50 mg PO AMHS Qty: 30 RF: 0 guaifenesin 200 mg tablet 200 mg PO TID PRN (Reason: cough) Qty: 30 RF: 0 Incruse Ellipta 62.5 mcg/actuation blister with device 1 inh INHALATION HS RF: 0 Jardiance 10 mg tablet 10 mg PO QAM RF: 0 Referrals Referrals: Raul Benitez MD [Primary Care Provider] -
[2021-02-21] MEDS ORDERED: SODIUM CHLORIDE 0.9% 1000ML 1,000 ML IV ONE (20:11)
[2021-02-21] MEDS ORDERED: CEFEPIME 2,000 MG/20 ML VIAL IV STA (20:11)
[2021-02-21 20:15] LABS: Influenza A virus by PCR Negative (Negative); Influenza B virus by PCR Negative (Negative)
[2021-02-21] MEDS ORDERED: ONDANSETRON INJ 2 MG/ML 2 ML VIAL ONE (20:28)
[2021-02-21] MEDS ORDERED: ACETAMINOPHEN 1000 MG/100 ML IV IV STA (21:13)
--- NOTE | 2021-02-21 21:34 | CT Scan Report ---
CT head/brain wo con CLINICAL HISTORY: weakness, hx of CVA . Altered mental status and confusion COMPARISON STUDY: 02/19/2015 CT DOSE: 614.27 mGy.cm TECHNIQUE: Standard CT of the Brain was performed without IV contrast. A dose lowering technique was utilized adhering to the principles of ALARA. FINDINGS: Extraaxial space: There is no evidence for subdural hematoma. There are no extra-axial fluid collecti ons. Ventricles and cisterns: The ventricles are again mildly dilated bilaterally. There is no evidence f or midline shift or mass effect. Parenchyma: There is no subarachnoid or intraparenchymal hemorrhage. There is no evidence for an acu te infarct or cerebral edema. Large area of encephalomalacia is again seen involving the distribution of the right middle cerebral artery representing an old MCA infarct. There is homogeneous attenuatio n of the remaining brain parenchyma. There are no gross mass lesions. Osseous structures: There is no evidence for an acute fracture. The visualized paranasal sinuses are clear. The mastoid air cells are clear bilaterally. Soft tissues: There is no evidence for focal soft tissue swelling. IMPRESSION: No acute intracerebral pathology. Large old right MCA infarct. ACT 112: Negative or not required by law. Electronically signed by: Westley Cavazos M.D. 02/21/2021 9:33 PM
--- NOTE | 2021-02-21 21:41 | CT Scan Report ---
CT abd pelvis wo con CLINICAL HISTORY: lower abd pain, weakness, 18K wbc COMPARISON STUDY: 11/06/2020 CT DOSE: 855.59 mGy.cm TECHNIQUE: Standard CT of the Abdomen and Pelvis was performed without IV contrast. The patient did not receive oral contrast. A dose lowering technique was utilized adhering to the principles of SISI Miguel. FINDINGS: Lung base: The lung bases are clear. Abdominal cavity: There is no evidence for abdominal mass, adenopathy or ascites. Liver: The liver is again homogeneous in fatty attenuation on these limited noncontrast images.. Spleen: The spleen is homogeneous in attenuation on these limited noncontrast images. Pancreas: The pancreas is homogeneous in attenuation on these limited noncontrast images. Gall Bladder: The patient is again status post cholecystectomy. Adrenal glands: The adrenal glands are normal in size and attenuation on these limited noncontrast im ages. Kidneys: The kidneys are homogeneous in attenuation on these limited noncontrast images. There is no evidence for gross renal mass, calculus or hydronephrosis bilaterally. Mild chronic bilateral perinep hric stranding is again seen. Bowel: The stomach is grossly distended with liquid and food stuff. The bowel loops are normally plac ed within the abdomen and pelvis without evidence for dilatation or obstruction. There is no evidence for mass lesion. There is mild diverticulosis of the descending and sigmoid colon without evidence f or diverticulitis. There are no inflammatory changes present. There is no evidence for free air. Ther e is no evidence for an inflamed appendix. Bladder: There is no evidence for focal bladder wall thickening, calculus or diverticulum. : There is no evidence for pelvic mass or adenopathy. The prostate is mildly enlarged. Vasculature: There is no evidence for focal aneurysmal dilatation of the abdominal aorta. Atheroscler otic calcification is present. Osseous structures: There is no acute osseous pathology. Degenerative changes are seen involving the lumbar spine. IMPRESSION: 1. No acute intra-abdominal or pelvic abnormality on these limited noncontrast images. 2. Diverticulosis without evidence for diverticulitis. 3. Additional nonacute findings are delineated above. ACT 112: Negative or not required by law. Electronically signed by: Westley Cavazos M.D. 02/21/2021 9:40 PM
[2021-02-21] MEDS ORDERED: POTASSIUM CHLORIDE CRTAB 20 MEQ TABCR PO STA (21:47)
--- NOTE | 2021-02-21 22:18 | History & Physical Report ---
Date of Service February 21, 2021 Assessment & Plan (1) Severe sepsis: Plan: SIRS plus lactic acidosis present encephalopathy ? Complicated UTI (? prostatitis given dysuria complaints, bland UA) history of bladder malignancy status post surgery history of CVA History post CVA seizures, on Keppra HTN, elevated PVD as per records COPD, patient without respiratory distress recurrent PE on Xarelto DM2 on oral meds, well-controlled as of recent outpatient hemoglobin A1c of 6.08 October 2020 past tobacco abuse Medical telemetry Cultures, Cefepime IVF, follow lactic acid Investigate other causes of encephalopathy if mentation not back to baseline in a.m. (e.g. 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 Xarelto DNR as per patient prior directives. Patient requesting updates from providers. Ms. Shannon Terry, contact #[phone]. Text document was generated using [employer] voice recognition software. It may contain grammatical or spelling errors. Kindly contact undersigned for clarification of any documentation item in question. History of Present Illness Chief Complaint: Weakness, dysuria, altered mental status as per records. Primary Care Provider: Raul Benitez MD History obtained from patient and records. Unable to obtain history from patient secondary to confusion. 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 Last confinement October 2020 for sepsis secondary to respiratory tract infection. This morning, patient noted by to be weak. Complaining of dizziness described as lightheadedness Patient noted to be diaphoretic as per . One episode of dysuria as per . No chest pain, S OB complaints. Patient not talking as much as per . Patient directed to ER. Cefepime given for sepsis. MEDICAL HISTORY: As above. 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 Allergies Allergy/AdvReac Type Severity Reaction Status Date / Time Pflhcqp-[id number] Reductase AdvReac Severe MUSCLE Verified 02/21/21 19:19 Inhibitor CRAMPS [Wthiann-Wzl-Dnu Reductase Inhibitor] lactose AdvReac Intermediate GI SYMPTOMS Verified 02/21/21 19:19 Home Medications Medication Instructions Recorded Confirmed Type ezetimibe 10 mg tablet (Zetia) 10 mg PO QDD 12/17/17 02/21/21 History levetiracetam 750 mg tablet 1,500 mg PO AMHS 12/17/17 02/21/21 History (Keppra) amlodipine 5 mg tablet (Norvasc) 5 mg PO QAM 01/10/20 02/21/21 History rivaroxaban 20 mg tablet (Xarelto) 20 mg PO QDD 01/10/20 02/21/21 History fluticasone propionate 50 1 spray INTRANASAL HS 11/06/20 02/21/21 History mcg/actuation nasal spray,suspension (Flonase Allergy Relief) tamsulosin 0.4 mg capsule (Flomax) 0.8 mg PO HS 11/06/20 02/21/21 History guaifenesin 200 mg tablet 200 mg PO TID PRN #30 tab 11/13/20 02/21/21 Rx losartan 50 mg tablet 50 mg PO AMHS #30 tab 11/13/20 02/21/21 Rx finasteride 5 mg tablet 5 mg PO DAILY #30 tab 12/22/20 02/21/21 Rx empagliflozin 10 mg tablet 10 mg PO QAM 02/21/21 02/21/21 History (Jardiance) umeclidinium 62.5 mcg/actuation 1 inh INHALATION HS 02/21/21 02/21/21 History blister powder for inhalation (Incruse Ellipta) Past Med/Surg History Medical History (Updated 02/22/21 @ 03:44 by Marcos Oro MD) Bile leak, postoperative After lap carlotta 08/20, had subsequent ERCP with stent placement, stent removed 09/30. Bladder tumor Noted incidentally on CT 09/16/18. Patient to ED on 09/29 with hematuria. DM type 2 (diabetes mellitus, type 2) A1c 6.3 07/2018 Fever of unknown origin History of pulmonary embolism [facility] 09/06. Discharged on Xarelto. History of stroke 5 years ago, residual CANNOT USE LEFT ARM - IN SLING; LEFT LEG WEAK - USES YEN WALKER HTN (hypertension) Left hemiparesis On anticoagulant therapy CURRENTLY ON HOLD FROM E.R. 09/29/18 DUE TO HEMATURIA. PT TO F/U 10/02/18 WITH PCP REGARDING HIS XARELTO. PAD (peripheral artery disease) Seizure disorder 2/2 CVA. On Keppra. Surgical History (Updated 11/06/20 @ 17:31 by Carolyn Waldrop PA-C) H/O umbilical hernia repair History of appendectomy History of cholecystectomy Due to gangrenous gallbladder. Complicated by bile leak, had subsequent ERCP with stent placement on 08/21. To [facility] ED 09/16 with sepsis. CARA drain removed, IV ABX. History of colonoscopy History of cystoscopy History of right common carotid artery stent placement S/P ERCP 09/30 for stent removal, [facility]. 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: No Beliefs That Will Affect Care: None marital status: Current Living Situation: Spouse How many Children do You have: 3 Other Information That Helps Us Care for You: No Feels Safe at Home: Declines to Answer Assistive Devices: Walker and Wheelchair Review of Systems Review of Systems: Could not be reliably obtained Physical Exam Physical Exam: GENERAL: Disoriented, uncomfortable, episodic tachypnea, tremulous SKIN: Normal color, warm HEENT: [place] palpebral conjunctivae, no ptosis, dry buccal mucosa, nasal cannula in place NECK : Supple, no tenderness CHEST : Decreased breath sounds, expiratory wheezes, no tenderness HEART : Tachycardic, no obvious murmurs ABDOMEN: Some distention, nontender EXTREMITIES : No LE swelling/tenderness, no other conspicuous deformities noted NEUROLOGIC : Disoriented, no facial asymmetry, chronic left upper extremity paresis Results & Data Results & Data ([facility]) Vital Signs (Past 12 Hours) Vital Signs Temp Pulse Pulse Resp BP BP Pulse Ox 02/21/21 19:50 116 H 19 94 02/21/21 19:40 114 H 18 162/90 H 02/21/21 19:30 116 H 21 95 02/21/21 19:20 115 H 26 H 94 02/21/21 19:10 115 H 17 02/21/21 19:00 105 H 26 H 93 02/21/21 18:50 112 H 21 02/21/21 18:40 114 H 20 95 02/21/21 18:30 118 H 24 97 02/21/21 18:25 95 02/21/21 18:20 119 H 118 H 27 H 139/70 95 02/21/21 18:10 123 H 26 H 96 02/21/21 16:55 37.3 C 130 H 18 122/68 90 Laboratory Results Laboratory Results WBC 18.16 K/uL (4.8-10.8) H 02/21/21 18:15 RBC 5.11 M/uL (4.7-6.1) 02/21/21 18:15 Hgb 16.1 g/dL (14.0-18.0) 02/21/21 18:15 Hct 48.1 % (42-52) 02/21/21 18:15 MCV 94.1 fL (80-100) 02/21/21 18:15 MCH 31.5 pg (25-34) 02/21/21 18:15 MCHC 33.5 g/dL (32-36) 02/21/21 18:15 RDW Std Deviation 47.6 fL (36.4-46.3) H 02/21/21 18:15 RDW Coeff of Araceli 13.8 % (11.5-14.5) 02/21/21 18:15 Plt Count 319 K/uL (130-400) 02/21/21 18:15 MPV 10.8 fL (7.4-10.4) H 02/21/21 18:15 Immature Gran % (Auto) 0.3 % 02/21/21 18:15 Neut % (Auto) 83.3 % 02/21/21 18:15 Lymph % (Auto) 10.6 % 02/21/21 18:15 [place] % (Auto) 5.4 % 02/21/21 18:15 Eos % (Auto) 0.2 % 02/21/21 18:15 Baso % (Auto) 0.2 % 02/21/21 18:15 Neut # (Auto) 15.12 K/uL (1.4-6.5) H 02/21/21 18:15 Lymph # (Auto) 1.92 K/uL (1.2-3.4) 02/21/21 18:15 [place] # (Auto) 0.98 K/uL (0.11-0.59) H 02/21/21 18:15 Eos # (Auto) 0.04 K/uL (0-0.5) 02/21/21 18:15 Baso # (Auto) 0.04 K/uL (0-0.2) 02/21/21 18:15 Immature Gran # (Auto) 0.06 K/uL (0.00-0.02) H 02/21/21 18:15 Sodium 141 mmol/L (136-145) 02/21/21 18:15 Potassium 3.8 mmol/L (3.5-5.1) 02/21/21 18:15 Chloride 104 mmol/L (98-107) 02/21/21 18:15 Carbon Dioxide 25 mmol/L (21-32) 02/21/21 18:15 Anion Gap 12.0 (3-11) H 02/21/21 18:15 BUN 15 mg/dl (7-18) 02/21/21 18:15 Creatinine 1.40 mg/dl (0.6-1.4) 02/21/21 18:15 Est Cr Clr Drug Dosing Not Reportable 02/21/21 18:15 Est GFR ( Amer) 56.6 ml/min 02/21/21 18:15 Est GFR (Non-Af Amer) 48.8 ml/min 02/21/21 18:15 BUN/Creatinine Ratio 11.0 (10-20) 02/21/21 18:15 Glucose 178 mg/dl (70-99) H 02/21/21 18:15 Lactate 2.2 mmol/L (0.4-2.0) H* 02/21/21 20:52 Calcium 10.0 mg/dl (8.5-10.1) 02/21/21 18:15 Total Bilirubin 0.5 mg/dl (0.2-1) 02/21/21 18:15 AST 15 U/L (15-37) 02/21/21 18:15 ALT 33 U/L (12-78) 02/21/21 18:15 Alkaline Phosphatase 77 U/L (45-117) 02/21/21 18:15 Troponin I < 0.015 ng/ml (0-0.045) 02/21/21 18:15 Total Protein 7.9 gm/dl (6.4-8.2) 02/21/21 18:15 Albumin 3.8 gm/dl (3.4-5.0) 02/21/21 18:15 Globulin 4.1 gm/dl (2.5-4.0) H 02/21/21 18:15 Albumin/Globulin Ratio 0.9 (0.9-2) 02/21/21 18:15 Procalcitonin < 0.05 ng/ml (0-0.5) 02/21/21 18:15 TSH 0.933 uIu/ml (0.300-4.500) 02/21/21 18:15 Urine Color Yellow 02/21/21 19:13 Urine Appearance Clear (Clear) 02/21/21 19:13 Urine pH 5.0 (4.5-7.5) 02/21/21 19:13 Ur Specific Pax 1.038 (1.000-1.030) H 02/21/21 19:13 Urine Protein Negative (Negative) 02/21/21 19:13 Urine Glucose (UA) 3+ (Negative) H 02/21/21 19:13 Urine Ketones Trace (Negative) H 02/21/21 19:13 Urine Blood Negative (Negative) 02/21/21 19:13 Urine Nitrite Negative (Negative) 02/21/21 19:13 Urine Bilirubin Negative (Negative) 02/21/21 19:13 Urine Urobilinogen Negative (Negative) 02/21/21 19:13 Ur Leukocyte Esterase Negative (Negative) 02/21/21 19:13 SARS-CoV-2 (PCR) NEGATIVE (Negative) 02/21/21 18:00 Influ A Molecular Assay Negative (Negative) 02/21/21 18:00 Influ B Molecular Assay Negative (Negative) 02/21/21 18:00 Impressions Chest X-Ray 02/21/21 18:09 XR chest 1V portable CLINICAL HISTORY: weakness. . Evaluate cardiopulmonary status COMPARISON STUDY: 11/06/2020 TECHNIQUE: 1 view of the chest FINDINGS: Single frontal view of the chest demonstrates the cardiomediastinal silhouette to be within normal limits. The lungs are clear of alveolar opacities. There is no evidence for pleural effusion. There is no evidence for vascular congestion. There is no acute osseous pathology. IMPRESSION: No acute cardiopulmonary disease. ACT 112: Negative or not required by law. Electronically signed by: Westley Cavazos M.D. 02/21/2021 6:27 PM Abdomen/Pelvis CT 02/21/21 20:49 CT abd pelvis wo con CLINICAL HISTORY: lower abd pain, weakness, 18K wbc COMPARISON STUDY: 11/06/2020 CT DOSE: 855.59 mGy.cm TECHNIQUE: Standard CT of the Abdomen and Pelvis was performed without IV contrast. The patient did not receive oral contrast. A dose lowering technique was utilized adhering to the principles of ALARA. FINDINGS: Lung base: The lung bases are clear. Abdominal cavity: There is no evidence for abdominal mass, adenopathy or ascites. Liver: The liver is again homogeneous in fatty attenuation on these limited noncontrast images.. Spleen: The spleen is homogeneous in attenuation on these limited noncontrast images. Pancreas: The pancreas is homogeneous in attenuation on these limited noncontrast images. Gall Bladder: The patient is again status post cholecystectomy. Adrenal glands: The adrenal glands are normal in size and attenuation on these limited noncontrast images. Kidneys: The kidneys are homogeneous in attenuation on these limited noncontrast images. There is no evidence for gross renal mass, calculus or hydronephrosis bilaterally. Mild chronic bilateral perinephric stranding is again seen. Bowel: The stomach is grossly distended with liquid and food stuff. The bowel loops are normally placed within the abdomen and pelvis without evidence for dilatation or obstruction. There is no evidence for mass lesion. There is mild diverticulosis of the descending and sigmoid colon without evidence for diverticulitis. There are no inflammatory changes present. There is no evidence for free air. There is no evidence for an inflamed appendix. Bladder: There is no evidence for focal bladder wall thickening, calculus or diverticulum. : There is no evidence for pelvic mass or adenopathy. The prostate is mildly enlarged. Vasculature: There is no evidence for focal aneurysmal dilatation of the abdominal aorta. Atherosclerotic calcification is present. Osseous structures: There is no acute osseous pathology. Degenerative changes are seen involving the lumbar spine. IMPRESSION: 1. No acute intra-abdominal or pelvic abnormality on these limited noncontrast images. 2. Diverticulosis without evidence for diverticulitis. 3. Additional nonacute findings are delineated above. ACT 112: Negative or not required by law. Electronically signed by: Westley Cavazos M.D. 02/21/2021 9:[address] 02/21/21 20:49 CT head/brain wo con CLINICAL HISTORY: weakness, hx of CVA . Altered mental status and confusion COMPARISON STUDY: 02/19/2015 CT DOSE: 614.27 mGy.cm TECHNIQUE: Standard CT of the Brain was performed without IV contrast. A dose lowering technique was utilized adhering to the principles of ALARA. FINDINGS: Extraaxial space: There is no evidence for subdural hematoma. There are no extra-axial fluid collections. Ventricles and cisterns: The ventricles are again mildly dilated bilaterally. There is no evidence for midline shift or mass effect. Parenchyma: There is no subarachnoid or intraparenchymal hemorrhage. There is no evidence for an acute infarct or cerebral edema. Large area of encephalomalacia is again seen involving the distribution of the right middle cerebral artery representing an old MCA infarct. There is homogeneous attenuation of the remaining brain parenchyma. There are no gross mass lesions. Osseous structures: There is no evidence for an acute fracture. The visualized paranasal sinuses are clear. The mastoid air cells are clear bilaterally. Soft tissues: There is no evidence for focal soft tissue swelling. IMPRESSION: No acute intracerebral pathology. Large old right MCA infarct. ACT 112: Negative or not required by law. Electronically signed by: Westley Cavazos M.D. 02/21/2021 9:33 PM Diagnostic Findings EKG as per my interpretation rate 130, sinus tachycardia, normal axis, ST depression lateral leads
[2021-02-21] MEDS ORDERED: NSS + 20MEQ KCL 20 MEQ/1,000 ML BAG IV ONE (22:19)
[2021-02-21] MEDS ORDERED: CONSULT PHARMACY STA (22:30)
[2021-02-21 23:00] LABS: Allen Test Pos (Pos); Base Excess ABG 1.5 mEq/L (-9-1.8); HCO3 ABG 27 mmol/L (19-24); Oxygen Saturation ABG 94.9 % (90-95); PCO2 ABG 45 mmHg (35-46); PO2 ABG 74 mmHg (80-95); pH ABG 7.39 (7.35-7.45)
[2021-02-22] LABS: Lyme Ab IgG w/WB Rflx Negative (Negative); Lyme Ab IgM w/WB Rflx Negative (Negative)
[2021-02-22] MEDS ORDERED: METOPROLOL TARTRATE 1 MG/ML VIAL IV STA ×2 (00:24→06:41)
[2021-02-22] MEDS ORDERED: PROMETHAZINE HCL 6.25 MG in SODIUM CHLORIDE 0.9% 50 ML IV PRN (01:23)
[2021-02-22] MEDS ORDERED: DEXTROSE 50% 50 ML SYRINGE IV PRN (01:23)
[2021-02-22] MEDS ORDERED: GLUCOSE 10 TABS/TUBE PO PRN (01:23)
[2021-02-22] MEDS ORDERED: CARBOHYDRATES FOR HYPOGLYCEMIA PO PRN (01:23)
[2021-02-22] MEDS ORDERED: GLUCAGON FOR INJ 1 MG VIAL SQ PRN (01:23)
[2021-02-22] MEDS ORDERED: GLUCOSE 40% GEL 15 GM TUBE PO PRN (01:23)
[2021-02-22] MEDS ORDERED: ACETAMINOPHEN 325 MG TAB PO PRN (01:23)
[2021-02-22] MEDS ORDERED: PATIENT'S HEIGHT AND/OR WEIGHT NEEDED SCH (01:45)
[2021-02-22] MEDS: INSULIN ASPART 100 UNITS/ML 3 ML PEN SC SCH ×4 (02:16→17:17)
[2021-02-22] MEDS: LOSARTAN POTASSIUM 50 MG TAB PO SCH ×2 (02:18→10:48)
[2021-02-22] MEDS ORDERED: INFLUENZA VACCINE HIGH DOSE PF 65+ 0.7 ML SYR IM ONE (02:59)
[2021-02-22] MEDS ORDERED: Nursing to Pharmacy Communication SCH (03:15)
[2021-02-22] MEDS ORDERED: XOPENEX/ATROVENT 1.25mg/0.5MG NEB COMBO NEB STA (06:05)
[2021-02-22] MEDS ORDERED: PIPERACILL/TAZOBAC CONSULT ACTIVE PRN (06:05)
--- NOTE | 2021-02-22 06:07 | Communication Note ---
Date of Service: February 22, 2021 Patient with 2 episodes of emesis this morning as per RN. Patient currently with more coarse breath sounds. Change cefepime to Zosyn for aspiration pneumonia.
[2021-02-22] MEDS ORDERED: IPRATROPIUM BROMIDE NEB SOLN 0.02% 2.5 ML VIAL INH STA (06:11)
[2021-02-22] MEDS ORDERED: LEVALBUTEROL 1.25MG/0.5ML NEB INH STA (06:11)
[2021-02-22] MEDS ORDERED: methylPREDNISolone 20 MG in SYRINGE 0 ML IV STA (06:12)
[2021-02-22] MEDS ORDERED: PIPERACILLIN/TAZOBACTAM 4.5 GM in DEXTROSE 5% 100 ML IV ONE (06:30)
--- NOTE | 2021-02-22 07:12 | XRay Report ---
XR chest 1V portable CLINICAL HISTORY: Coarse breath sounds. COMPARISON STUDY: Chest CT November 06, 2020. Chest radiograph February 21, 2021. FINDINGS: Lung volumes are at the lower limits of normal. Minimal left basilar opacity favors atelect asis. There is no pneumothorax or pleural effusion. Cardiac size is normal. Mediastinal contours are normal. There is no evidence for pulmonary edema. IMPRESSION: No acute cardiopulmonary findings. ACT 112: Negative or not required by law. Electronically signed by: Levy Shepherd M.D. 02/22/2021 7:11 AM
[2021-02-22] MEDS ORDERED: INSULIN GLARGINE SOLOSTAR 100 UNITS/ML 3 ML PEN SC SCH (09:00)
[2021-02-22] MEDS ORDERED: amLODIPine BESYLATE 5 MG TAB PO SCH (09:00)
[2021-02-22] MEDS ORDERED: levETIRAcetam 500 MG TAB PO SCH (09:00)
[2021-02-22] MEDS ORDERED: FINASTERIDE 5 MG TAB PO SCH (09:00)
[2021-02-22 09:12] LABS: Hematocrit (blood only) 47.1 % (42-52); Hemoglobin 15.9 g/dL (14.0-18.0); Mean Corpuscular Hemoglobin 31.5 pg (25-34); Mean Corpuscular Hgb Conc 33.8 g/dL (32-36); Mean Corpuscular Volume 93.5 fL (80-100); Mean Platelet Volume 10.2 fL (7.4-10.4); Platelet Count 298 K/uL (130-400); RDW Coefficient of Variation 14.2 % (11.5-14.5); RDW Standard Deviation 48.4 fL (36.4-46.3); Red Blood Count 5.04 M/uL (4.7-6.1); White Blood Count 23.27 K/uL (4.8-10.8)
[2021-02-22 09:39] LABS: Calcium 9.3 mg/dl (8.5-10.1); Creatinine Clr Calc Pharmacy 53.2 ml/min; Est GFR (African American) 68.1 ml/min; Est GFR (Non-African American) 58.8 ml/min; Potassium 4.1 mmol/L (3.5-5.1)
--- NOTE | 2021-02-22 10:00 | XRay Report ---
XR chest 1V portable CLINICAL HISTORY: Difficulty breathing. Evaluate for aspiration pneumonitis. COMPARISON STUDY: 02/20/2021 TECHNIQUE: 1 view of the chest FINDINGS: Single frontal view of the chest demonstrates the cardiomediastinal silhouette to be within normal li mits. The lungs are clear of alveolar opacities. There is no evidence for pleural effusion. There is no evidence for vascular congestion. There is no acute osseous pathology. IMPRESSION: No acute cardiopulmonary disease. ACT 112: Negative or not required by law. Electronically signed by: Westley Cavazos M.D. 02/22/2021 9:59 AM
[2021-02-22 10:27] LABS: Basophils # (auto) 0.04 K/uL (0-0.2); Basophils % (auto) 0.2 %; Immature Granulocytes % (auto) 0.4 %; Lymphocytes # (auto) 1.25 K/uL (1.2-3.4); Lymphocytes % (auto) 5.4 %; Monocytes # (auto) 0.85 K/uL (0.11-0.59); Monocytes % (auto) 3.7 %; Neutrophils # (auto) 21.03 K/uL (1.4-6.5); Neutrophils % (auto) 90.3 %
[2021-02-22] MEDS: levETIRAcetam 1,000 MG in 0.9 % SODIUM CHLORIDE 100 ML IV SCH ×2 (10:53→20:58)
[2021-02-22] MEDS: PIPERACILLIN/TAZOBACTAM 3.375 GM in DEXTROSE 5% 100 ML IV SCH ×2 (11:14→20:49)
[2021-02-22] MEDS ORDERED: FUROSEMIDE 40 MG/4 ML VIAL IV ONE (11:50)
--- NOTE | 2021-02-22 12:18 | Hospitalist Progress Note ---
Date of Service February 22, 2021 Assessment & Plan (1) Severe sepsis: Plan: SIRS plus lactic acidosis present encephalopathy Complicated UTI (? prostatitis given dysuria complaints, bland UA) history of bladder malignancy status post surgery Cultures are pending Possible aspiration pneumonia complicated by COPD We will get speech therapy evaluation and possible NG tube placement ongoing vomiting No acute abdominal conditions in CT of the abdomen and pelvis Has been on intravenous Zosyn and received adequate fluid resuscitation Will receive IV Lasix for possible congestion with increasing shortness of breath Condition has been deteriorating with decreasing responsiveness and increasing shortness of breath Family members including the and the daughter were updated The patient remained DNR and DNI Like to be converted to comfort care after arrival of the family members History of CVA History post CVA seizures, on Keppra We will continue Keppra HTN, elevated We will try intravenous Lopressor and possible transfer to telemetry unit on improvement DM2 on oral meds, well-controlled as of recent outpatient hemoglobin A1c of 6.08 October 2020 Basal insulin, ISS BG goal [id number], carb count coverage PVD as per records Past tobacco abuse 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 Xarelto DNR as per patient prior directives. Prognosis remains very poor Patient requesting updates from providers. Ms. Shannon Terry, contact #[phone]. Admission and Anticipated Discharge Date Admission Date: February 21, 2021 Subjective 02/22/2021 The patient was seen and examined in medical telemetry unit He was admitted last night with severe sepsis secondary to aspiration pneumonia with history of COPD and other medical comorbid condition He was noted to have vomiting following admission and requiring more oxygen due to aspiration He was kept n.p.o. but in spite of that the condition got worse and code rashaun was called in around 11:30 in the morning He was resuscitated with the nasogastric and nasotracheal suction and he remained hemodynamically stable but not being communicating and requiring very high flow oxygen to maintain saturation The family members including daughter and the updated and DNR maintained and they will come to see him as soon as possible Discussed with the family members in detail If there is no improvement in his condition overnight he will be put for comfort care only from tomorrow morning Review of Systems Review of Systems: Unobtainable due to cognitive status Physical Exam Physical Exam: On examination Not responding to vocal commands with moderate shortness of breath at rest Associated wheezing and transmitted breath sound Chestwidespread wheezing and crackles HeartS1-S2 Abdomennot distended, soft and bowel sound present Extremitiestrace edema bilaterally Results & Data Results & Data ([facility]) Vital Signs (Past 12 Hours) Vital Signs Temp Pulse Pulse Resp BP BP Pulse Ox 02/22/21 07:30 37.3 C 116 H 24 167/83 H 90 02/22/21 07:25 103 H 167/83 H 02/22/21 06:20 103 H 15 94 02/22/21 03:01 36.8 C 100 H 22 168/66 H 94 02/22/21 01:43 124 H 111/78 02/22/21 01:31 36.5 C 158 H 22 111/78 92 02/22/21 01:18 147 H Pulse Ox 02/22/21 07:30 02/22/21 07:25 02/22/21 06:20 02/22/21 03:01 02/22/21 01:43 02/22/21 01:31 92 02/22/21 01:18 Laboratory Results Short CBC 02/21/21 02/22/21 Range/Units 18:15 09:02 WBC 18.16 H 23.27 H (4.8-10.8) K/uL Hgb 16.1 15.9 (14.0-18.0) g/dL Hct 48.1 47.1 (42-52) % Plt Count 319 298 (130-400) K/uL BMP 02/21/21 02/22/21 18:15 09:02 Sodium 141 143 Potassium 3.8 4.1 Chloride 104 109 H Carbon Dioxide 25 20 L BUN 15 16 Creatinine 1.40 1.20 Glucose 178 H 247 H Calcium 10.0 9.3 Cardiac Enzymes 02/21/21 Range/Units 18:15 Troponin I < 0.015 (0-0.045) ng/ml Liver Function 02/21/21 Range/Units 18:15 Total Bilirubin 0.5 (0.2-1) mg/dl AST 15 (15-37) U/L ALT 33 (12-78) U/L Alkaline Phosphatase 77 (45-117) U/L Albumin 3.8 (3.4-5.0) gm/dl Urine 02/21/21 Range/Units 19:13 Urine Color Yellow Urine Appearance Clear (Clear) Urine pH 5.0 (4.5-7.5) Ur Specific Lewis 1.038 H (1.000-1.030) Urine Protein Negative (Negative) Urine Glucose (UA) 3+ H (Negative) Medications Administered Current Inpatient Medications Acetaminophen (Acetaminophen 325 Mg Tab) 650 mg PO Q4H PRN PRN Reason: Pain or Fever Stop: 03/24/21 01:22 Amlodipine Besylate (Amlodipine Besylate 5 Mg Tab) 5 mg PO QAM ABHIJIT Stop: 03/24/21 08:59 Last Admin: 02/22/21 10:48 Dose: Not Given Documented by: Dextrose (Dextrose 50% 50 Ml Syringe) 25 - 50 ml IV UD PRN; Protocol PRN Reason: Hypoglycemia Protocol Stop: 03/24/21 01:22 Ezetimibe (Ezetimibe 10 Mg Tablet) 10 mg PO QDD ABHIJIT Stop: 03/24/21 16:29 Finasteride (Finasteride 5 Mg Tab) 5 mg PO DAILY ABHIJIT Stop: 03/24/21 08:59 Last Admin: 02/22/21 10:48 Dose: Not Given Documented by: Fluticasone Propionate (Fluticasone Propionate Na Spr 16 Gm Btl) 1 sprays NA HS ABHIJIT Stop: 03/24/21 20:59 Glucagon (Glucagon For Inj 1 Mg Vial) 1 mg SQ UD PRN; Protocol PRN Reason: Hypoglycemia Protocol Stop: 03/24/21 01:22 Glucose (Glucose 10 Tabs/Tube) 4 - 8 tabs PO UD PRN; Protocol PRN Reason: Hypoglycemia Protocol Stop: 03/24/21 01:22 Glucose (Glucose 40% Gel 15 Gm Tube) 15 - 30 gm PO UD PRN; Protocol PRN Reason: Hypoglycemia Protocol Stop: 03/24/21 01:22 Potassium Chloride/Sodium Chloride (Normal Saline W/20 Meq Kcl) 20 meq in 1,000 mls @ 60 mls/hr IV .[id number] ONE Stop: 02/22/21 14:58 Last Infusion: 02/22/21 11:14 Dose: 60 mls/hr Documented by: Promethazine HCl 6.25 mg/ (Sodium Chloride) 50.25 mls @ 201 mls/hr IV Q6H PRN PRN Reason: Nausea And Vomiting Stop: 03/24/21 01:22 Levetiracetam 1,000 mg/ Sodium (Chloride) 110 mls @ 440 mls/hr IV BID [facility] Stop: 03/24/21 09:59 Last Infusion: 02/22/21 11:13 Dose: Infused Documented by: Piperacillin Sod/Tazobactam (Sod 3.375 gm/ Dextrose) 115 mls @ 28.75 mls/hr IV Q8H [facility]; Protocol Stop: 03/01/21 11:59 Last Admin: 02/22/21 11:14 Dose: 28.8 mls/hr Documented by: Insulin Aspart (Insulin Aspart 100 Units/Ml 3 Ml Pen) 0 units SC ACHS [facility] Stop: 03/24/21 01:22 Last Admin: 02/22/21 07:48 Dose: 5 units Documented by: Insulin Glargine (Insulin Glargine Solostar 100 Units/Ml 3 Ml Pen) 5 units SC DAILY [facility] Stop: 03/24/21 08:59 Last Admin: 02/22/21 07:54 Dose: 5 units Documented by: Levetiracetam (Levetiracetam 500 Mg Tab) 1,500 mg PO BID [facility] Stop: 03/24/21 08:59 Last Admin: 02/22/21 10:48 Dose: Not Given Documented by: Losartan Potassium (Losartan Potassium 50 Mg Tab) 50 mg PO BID [facility] Stop: 03/24/21 01:22 Last Admin: 02/22/21 10:48 Dose: Not Given Documented by: Metoprolol Tartrate (Metoprolol Tartrate 1 Mg/Ml Vial) 5 mg IV Q6 [facility] Stop: 03/24/21 11:59 Miscellaneous (Carbohydrates For Hypoglycemia ) 15 - 30 gm PO UD PRN PRN Reason: Hypoglycemia Protocol Stop: 03/24/21 01:22 Miscellaneous Information (Piperacill/Tazobac Consult Active) 1 ea N/A UD PRN PRN Reason: Consult Stop: 03/24/21 06:04 Rivaroxaban (Rivaroxaban 20 Mg Tab) 20 mg PO QDD [facility] Stop: 03/24/21 16:29 Tamsulosin HCl (Tamsulosin Hcl 0.4 Mg Cap) 0.8 mg PO HS [facility] Stop: 03/24/21 20:59 Umeclidinium [place] (Umeclidinium [place] 62.5mcg/Blister 7 Puffs/Inhaler) 1 puffs INH HS [facility] Stop: 03/24/21 20:59
[2021-02-22] MEDS: METOPROLOL TARTRATE 1 MG/ML VIAL IV SCH ×2 (12:19→18:23)
[2021-02-22] MEDS ORDERED: ACETAMINOPHEN 1,000 MG/100 ML VIAL IV STA (15:54)
[2021-02-22] MEDS ORDERED: EZETIMIBE 10 MG TABLET PO SCH (16:30)
[2021-02-22] MEDS ORDERED: RIVAROXABAN 20 MG TAB PO SCH (16:30)
[2021-02-22] MEDS ORDERED: FLUTICASONE PROPIONATE NA SPR 16 GM BTL SCH (21:00)
[2021-02-22] MEDS ORDERED: TAMSULOSIN HCL 0.4 MG CAP PO SCH (21:00)
[2021-02-22] MEDS ORDERED: UMECLIDINIUM BROMIDE 62.5MCG/BLISTER 7 PUFFS/INHALER INH SCH (21:00)
--- NOTE | 2021-02-22 23:38 | Communication Note ---
Date of Service: February 22, 2021 Patient agreeable to transition to comfort measures.
[2021-02-23] MEDS: MoRPHine SULFATE 4 MG/ML 1 ML CARP\\VIAL IV PRN ×4 (00:03→08:03)
[2021-02-23] MEDS: LORazepam 1 MG/2 ML VIAL IV PRN ×2 (01:21→04:36)
[2021-02-23] MEDS ORDERED: GLYCOPYRROLATE 0.2 MG/ML VIAL IV STA (01:42)
--- NOTE | 2021-02-23 06:46 | Electrocardiogram Report ---
Test Reason : Blood Pressure : / mmHG Vent. Rate : 133 BPM Atrial Rate : 133 BPM P-R Int : 138 ms QRS Dur : 068 ms QT Int : 288 ms P-R-T Axes : 046 050 037 degrees QTc Int : 428 ms Sinus tachycardia Possible Left atrial enlargement Cannot rule out Anterior infarct , age undetermined Nonspecific ST abnormality Abnormal ECG When compared with ECG of 06-NOV-2020 09:50, No significant change Confirmed by Joao Azar ([id number]) on 02/23/2021 6:46:21 AM Referred By: REFERRED SELF Confirmed By:Joao Azar
--- NOTE | 2021-02-23 17:18 | Hospitalist Progress Note ---
Date of Service February 23, 2021 Assessment & Plan (1) Comfort measures only status: Plan: Overall condition deteriorated Discussed extensively with the family members including the daughter and the Prognosis remains very poor He has been under comfort care since last night Remains critical but stable Documentation below is the current hospital course: (2) Severe sepsis: Plan: SIRS plus lactic acidosis present encephalopathy Complicated UTI (? prostatitis given dysuria complaints, bland UA) history of bladder malignancy status post surgery Cultures are pending Possible aspiration pneumonia complicated by COPD We will get speech therapy evaluation and possible NG tube placement ongoing vomiting No acute abdominal conditions in CT of the abdomen and pelvis Has been on intravenous Zosyn and received adequate fluid resuscitation Will receive IV Lasix for possible congestion with increasing shortness of breath Condition has been deteriorating with decreasing responsiveness and increasing shortness of breath Family members including the and the daughter were updated The patient remained DNR and DNI Like to be converted to comfort care after arrival of the family members History of CVA History post CVA seizures, on Keppra We will continue Keppra HTN, elevated We will try intravenous Lopressor and possible transfer to telemetry unit on improvement DM2 on oral meds, well-controlled as of recent outpatient hemoglobin A1c of 6.08 October 2020 Basal insulin, ISS BG goal [id number], carb count coverage PVD as per records Past tobacco abuse 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 Xarelto DNR as per patient prior directives. Prognosis remains very poor Patient requesting updates from providers. Ms. Shannon Terry, contact #[phone]. Admission and Anticipated Discharge Date Admission Date: February 21, 2021 Subjective 02/22/2021 The patient was seen and examined in medical telemetry unit He was admitted last night with severe sepsis secondary to aspiration pneumonia with history of COPD and other medical comorbid condition He was noted to have vomiting following admission and requiring more oxygen due to aspiration He was kept n.p.o. but in spite of that the condition got worse and jahaira rashaun was called in around 11:30 in the morning He was resuscitated with the nasogastric and nasotracheal suction and he remained hemodynamically stable but not being communicating and requiring very high flow oxygen to maintain saturation The family members including daughter and the updated and DNR maintained and they will come to see him as soon as possible Discussed with the family members in detail If there is no improvement in his condition overnight he will be put for comfort care only from tomorrow morning 02/23/2021 The patient was seen and examined in medical floor He has been under comfort care now Remains critical without any acute distress Review of Systems Review of Systems: Unresponsive. Critical Physical Exam Physical Exam: On examination Not responding to vocal commands with moderate shortness of breath at rest Associated wheezing and transmitted breath sound Chestwidespread wheezing and crackles HeartS1-S2 Abdomennot distended, soft and bowel sound present Extremitiestrace edema bilaterally
[2021-02-24] MEDS: MoRPHine SULFATE 4 MG/ML 1 ML CARP\\VIAL IV PRN ×6 (06:08→23:18)
[2021-02-24] MEDS ORDERED: SCOPOLAMINE 1 MG TDSY TD SCH (06:15)
[2021-02-24] MEDS: ATROPINE SULFATE 1% OP SOLN 5 ML BTL PO SCH ×5 (12:32→23:17)
--- NOTE | 2021-02-24 15:56 | Hospitalist Progress Note ---
Date of Service February 24, 2021 Assessment & Plan (1) Comfort measures only status: Plan: Overall condition deteriorated Discussed extensively with the family members including the daughter and the Prognosis remains very poor He has been under comfort care since last night Remains critical but stable No apparent distress-we will continue supportive care for now Documentation below is the current hospital course: (2) Severe sepsis: Plan: SIRS plus lactic acidosis present encephalopathy Complicated UTI (? prostatitis given dysuria complaints, bland UA) history of bladder malignancy status post surgery Cultures are pending Possible aspiration pneumonia complicated by COPD We will get speech therapy evaluation and possible NG tube placement ongoing vomiting No acute abdominal conditions in CT of the abdomen and pelvis Has been on intravenous Zosyn and received adequate fluid resuscitation Will receive IV Lasix for possible congestion with increasing shortness of breath Condition has been deteriorating with decreasing responsiveness and increasing shortness of breath Family members including the and the daughter were updated The patient remained DNR and DNI Like to be converted to comfort care after arrival of the family members History of CVA History post CVA seizures, on Keppra We will continue Keppra HTN, elevated We will try intravenous Lopressor and possible transfer to telemetry unit on improvement DM2 on oral meds, well-controlled as of recent outpatient hemoglobin A1c of 6.08 October 2020 Basal insulin, ISS BG goal [id number], carb count coverage PVD as per records Past tobacco abuse 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 Xarelto DNR as per patient prior directives. Prognosis remains very poor Patient requesting updates from providers. Ms. Shannon Terry, contact #[phone]. Admission and Anticipated Discharge Date Admission Date: February 21, 2021 Subjective 02/22/2021 The patient was seen and examined in medical telemetry unit He was admitted last night with severe sepsis secondary to aspiration pneumonia with history of COPD and other medical comorbid condition He was noted to have vomiting following admission and requiring more oxygen due to aspiration He was kept n.p.o. but in spite of that the condition got worse and ajhaira rodney was called in around 11:30 in the morning He was resuscitated with the nasogastric and nasotracheal suction and he remained hemodynamically stable but not being communicating and requiring very high flow oxygen to maintain saturation The family members including daughter and the updated and DNR maintained and they will come to see him as soon as possible Discussed with the family members in detail If there is no improvement in his condition overnight he will be put for comfort care only from tomorrow morning 02/23/2021 The patient was seen and examined in medical floor He has been under comfort care now Remains critical without any acute distress 02/24/2021 The patient was seen and examined in medical floor He is critical but stable Physical Exam Physical Exam: On examination Not responding to vocal commands with moderate shortness of breath at rest Associated wheezing and transmitted breath sound Chestwidespread wheezing and crackles HeartS1-S2 Abdomennot distended, soft and bowel sound present Extremitiestrace edema bilaterally Results & Data Results & Data ([facility]) Vital Signs (Past 12 Hours) Vital Signs Temp Pulse Resp BP Pulse Ox 02/24/21 07:34 37.0 C 120 H 24 143/74 H 80 L
[2021-02-24] MEDS: CHECK SCOPOLAMINE PATCH PLACEMENT SCH (16:53)
[2021-02-25] MEDS: CHECK SCOPOLAMINE PATCH PLACEMENT SCH ×3 (01:07→15:25)
[2021-02-25] MEDS: ATROPINE SULFATE 1% OP SOLN 5 ML BTL PO SCH ×8 (01:58→23:49)
[2021-02-25 07:59] VITALS: BP 111/73; PULSE 125; O2SAT 88
--- NOTE | 2021-02-25 16:36 | Hospitalist Progress Note ---
Date of Service February 25, 2021 Assessment & Plan (1) Comfort measures only status: Plan: Overall condition deteriorated Discussed extensively with the family members including the daughter and the Prognosis remains very poor He has been under comfort care since last night Remains critical but stable No apparent distress-we will continue supportive care for now Discussed with the family members-condition remains critical If he remains stable like this on Sunday he will be transferred to hospice care at home or in a facility Documentation below is the current hospital course: (2) Severe sepsis: Plan: SIRS plus lactic acidosis present encephalopathy Complicated UTI (? prostatitis given dysuria complaints, bland UA) history of bladder malignancy status post surgery Cultures are pending Possible aspiration pneumonia complicated by COPD We will get speech therapy evaluation and possible NG tube placement ongoing vomiting No acute abdominal conditions in CT of the abdomen and pelvis Has been on intravenous Zosyn and received adequate fluid resuscitation Will receive IV Lasix for possible congestion with increasing shortness of breath Condition has been deteriorating with decreasing responsiveness and increasing shortness of breath Family members including the and the daughter were updated The patient remained DNR and DNI Like to be converted to comfort care after arrival of the family members History of CVA History post CVA seizures, on Keppra We will continue Keppra HTN, elevated We will try intravenous Lopressor and possible transfer to telemetry unit on imp rovement DM2 on oral meds, well-controlled as of recent outpatient hemoglobin A1c of 6.08 October 2020 Basal insulin, ISS BG goal [id number], carb count coverage PVD as per records Past tobacco abuse 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 Xarelto DNR as per patient prior directives. Prognosis remains very poor Patient requesting updates from providers. Ms. Shannon Terry, contact #[phone]. Admission and Anticipated Discharge Date Admission Date: February 21, 2021 Subjective 02/22/2021 The patient was seen and examined in medical telemetry unit He was admitted last night with severe sepsis secondary to aspiration pneumonia with history of COPD and other medical comorbid condition He was noted to have vomiting following admission and requiring more oxygen due to aspiration He was kept n.p.o. but in spite of that the condition got worse and jahaira rashaun was called in around 11:30 in the morning He was resuscitated with the nasogastric and nasotracheal suction and he remained hemodynamically stable but not being communicating and requiring very high flow oxygen to maintain saturation The family members including daughter and the updated and DNR maintained and they will come to see him as soon as possible Discussed with the family members in detail If there is no improvement in his condition overnight he will be put for comfort care only from tomorrow morning 02/23/2021 The patient was seen and examined in medical floor He has been under comfort care now Remains critical without any acute distress 02/24/2021 The patient was seen and examined in medical floor He is critical but stable 02/25/2021 The patient was seen and examined in medical floor in presence of the family members He has been a little better today and have made an opening eyes with comments and sometimes squeezes hands as well Has lots of secretions with transmitted sounds from the trachea Review of Systems Review of Systems: Unobtainable due to cognitive status Physical Exam Physical Exam: On examination Not responding to vocal commands with moderate shortness of breath at rest Associated wheezing and transmitted breath sound Chestwidespread wheezing and crackles HeartS1-S2 Abdomennot distended, soft and bowel sound present Extremitiestrace edema bilaterally [employer]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
[2021-02-25] MEDS: MoRPHine SULFATE 4 MG/ML 1 ML CARP\\VIAL IV PRN (16:50)
[2021-02-26] MEDS: CHECK SCOPOLAMINE PATCH PLACEMENT SCH ×3 (00:45→15:30)
[2021-02-26] MEDS: ATROPINE SULFATE 1% OP SOLN 5 ML BTL PO SCH ×7 (02:48→20:42)
--- NOTE | 2021-02-26 15:48 | Hospitalist Progress Note ---
Date of Service February 26, 2021 Assessment & Plan (1) Comfort measures only status: Plan: Overall condition deteriorated Discussed extensively with the family members including the daughter and the Prognosis remains very poor He has been under comfort care since last night Remains critical but stable No apparent distress-we will continue supportive care for now Discussed with the family members-condition remains critical If he remains stable like this on Sunday he will be transferred to hospice care at home or in a facility Remains critical and not in any acute distress Documentation below is the current hospital course: (2) Severe sepsis: Plan: SIRS plus lactic acidosis present encephalopathy Complicated UTI (? prostatitis given dysuria complaints, bland UA) history of bladder malignancy status post surgery Cultures are pending Possible aspiration pneumonia complicated by COPD We will get speech therapy evaluation and possible NG tube placement ongoing vomiting No acute abdominal conditions in CT of the abdomen and pelvis Has been on intravenous Zosyn and received adequate fluid resuscitation Will receive IV Lasix for possible congestion with increasing shortness of gordo ath Condition has been deteriorating with decreasing responsiveness and increasing shortness of breath Family members including the and the daughter were updated The patient remained DNR and DNI Like to be converted to comfort care after arrival of the family members History of CVA History post CVA seizures, on Keppra We will continue Keppra HTN, elevated We will try intravenous Lopressor and possible transfer to telemetry unit on improvement DM2 on oral meds, well-controlled as of recent outpatient hemoglobin A1c of 6.08 October 2020 Basal insulin, ISS BG goal [id number], carb count coverage PVD as per records Past tobacco abuse 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 Xarelto DNR as per patient prior directives. Prognosis remains very poor Patient requesting updates from providers. Ms. Shannon Terry, contact #[phone]. Admission and Anticipated Discharge Date Admission Date: February 21, 2021 Subjective 02/22/2021 The patient was seen and examined in medical telemetry unit He was admitted last night with severe sepsis secondary to aspiration pneumonia with history of COPD and other medical comorbid condition He was noted to have vomiting following admission and requiring more oxygen due to aspiration He was kept n.p.o. but in spite of that the condition got worse and jahaira rodney was called in around 11:30 in the morning He was resuscitated with the nasogastric and nasotracheal suction and he remained hemodynamically stable but not being communicating and requiring very high flow oxygen to maintain saturation The family members including daughter and the updated and DNR maintained and they will come to see him as soon as possible Discussed with the family members in detail If there is no improvement in his condition overnight he will be put for comfort care only from tomorrow morning 02/23/2021 The patient was seen and examined in medical floor He has been under comfort care now Remains critical without any acute distress 02/24/2021 The patient was seen and examined in medical floor He is critical but stable 02/25/2021 The patient was seen and examined in medical floor in presence of the family members He has been a little better today and have made an opening eyes with comments and sometimes squeezes hands as well Has lots of secretions with transmitted sounds from the trachea 02/26/2021 The patient was seen and examined in medical floor He remains critical Opens eyes and moves limbs at times but not communicating Physical Exam Physical Exam: On examination Not responding to vocal commands with moderate shortness of breath at rest Associated wheezing and transmitted breath sound Chestwidespread wheezing and crackles HeartS1-S2 Abdomennot distended, soft and bowel sound present Extremitiestrace 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
[2021-02-26] MEDS: LORazepam 1 MG/2 ML VIAL IV PRN ×2 (17:33→22:08)
[2021-02-26] MEDS ORDERED: ACETAMINOPHEN 1000 MG/100 ML IV IV PRN (18:01)
[2021-02-26] MEDS: MoRPHine SULFATE 4 MG/ML 1 ML CARP\\VIAL IV PRN (20:41)
[2021-02-26 21:38] VITALS: TEMP 98.4
--- NOTE | 2021-02-26 23:28 | Death Pronouncement Note ---
Date of Service February 26, 2021 Pronouncement Note Admission Date Admission Date: February 21, 2021 Date and Time of Date of : 02/26/21 Time of : 22:51 Contributing Factors (1) Comfort measures only status: (2) Severe sepsis: Additional Data Confirmation of : no pulse, no respirations, no heart sounds and pupils fixed and dilated Family: contacted Attending physician: Jeannine Gandhi MD
--- NOTE | 2021-02-28 09:00 | Discharge Summary ---
Date of Service February 28, 2021 Admission HPI Per Admitting Provider History obtained from patient and records. Unable to obtain history from patient secondary to confusion. 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 Last confinement October 2020 for sepsis secondary to respiratory tract infection. This morning, patient noted by to be weak. Complaining of dizziness described as lightheadedness Patient noted to be diaphoretic as per . One episode of dysuria as per . No chest pain, S OB complaints. Patient not talking as much as per . Patient directed to ER. Cefepime given for sepsis. MEDICAL HISTORY: As above. 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 Admission Exam Per Admitting Provider Physical Exam: GENERAL: Disoriented, uncomfortable, episodic tachypnea, tremulous SKIN: Normal color, warm HEENT: [place] palpebral conjunctivae, no ptosis, dry buccal mucosa, nasal cannula in place NECK : Supple, no tenderness CHEST : Decreased breath sounds, expiratory wheezes, no tenderness HEART : Tachycardic, no obvious murmurs ABDOMEN: Some distention, nontender EXTREMITIES : No LE swelling/tenderness, no other conspicuous deformities noted NEUROLOGIC : Disoriented, no facial asymmetry, chronic left upper extremity paresis Principal Diagnosis Severe Sepsis,Aspiration,Diabetes Type 2,CVA,HTN Discharge Data Allergies Allergy/AdvReac Type Severity Reaction Status Date / Time [id number]-[id number] Reductase AdvReac Severe MUSCLE Verified 02/21/21 19:19 Inhibitor CRAMPS [Jqdxjck-Gfe-Ulx Reductase Inhibitor] lactose AdvReac Intermediate GI SYMPTOMS Verified 02/21/21 19:19 Consultations 02/21/21 21:32 ED Decision to Admit Stat Ordered Studies 02/21/21 20:49 CT abd pelvis wo con Stat CT head/brain wo con Stat Hospital Course (1) Comfort measures only status: Overall condition deteriorated Discussed extensively with the family members including the daughter and the Prognosis remains very poor He has been under comfort care since last night Remains critical but stable No apparent distress-we will continue supportive care for now Discussed with the family members-condition remains critical If he remains stable like this on Sunday he will be transferred to hospice care at home or in a facility Remains critical and not in any acute distress Documentation below is the current hospital course: (2) Severe sepsis: SIRS plus lactic acidosis present encephalopathy Complicated UTI (? prostatitis given dysuria complaints, bland UA) history of bladder malignancy status post surgery Cultures are pending Possible aspiration pneumonia complicated by COPD We will get speech therapy evaluation and possible NG tube placement ongoing vomiting No acute abdominal conditions in CT of the abdomen and pelvis Has been on intravenous Zosyn and received adequate fluid resuscitation Will receive IV Lasix for possible congestion with increasing shortness of breath Condition has been deteriorating with decreasing responsiveness and increasing shortness of breath Family members including the and the daughter were updated The patient remained DNR and DNI Like to be converted to comfort care after arrival of the family members History of CVA History post CVA seizures, on Keppra We will continue Keppra HTN, elevated We will try intravenous Lopressor and possible transfer to telemetry unit on improvement DM2 on oral meds, well-controlled as of recent outpatient hemoglobin A1c of 6.08 October 2020 Basal insulin, ISS BG goal [id number], carb count coverage PVD as per records Past tobacco abuse 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 Xarelto DNR as per patient prior directives. Prognosis remains very poor Patient requesting updates from providers. Shannon Terry, contact #[phone]. Total Time Total Time Spent Total Time Spent (In Minutes): 20 Minutes Discharge Plan Discharge Items Patient Disposition: Discharge Diagnosis: Severe Sepsis,Aspiration,Type 2 Diabetes,HTN Other Date/Time: 02/26/21 22:51
== END 2021-02-27 00:20 | disposition expired | DRG 871 ==
LOC: ED 16:49 → 2N 22:27 → 3E 02-22 17:19